=== PATIENT | female | born 2005 | race Caucasian/White ===

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

== ENCOUNTER 2024-12-05 10:31 | Emergency (ER) | payer BC, MEDICAID, SELFPAY ==
[2024-12-05 10:32] VITALS: BP 86/70; PULSE 106; RESP 18; TEMP 36.7; O2SAT 99
[2024-12-05 10:35] VITALS: BMI 25.7
--- NOTE | 2024-12-05 11:06 | US_ITS ---
PROCEDURE: KIDNEY AND BLADDER 12/05/2024 REASON FOR EXAM: R FLANK PAIN, TECHNIQUE: Bilateral renal ultrasound. COMPARISON: Comparison is made with prior CT scan of the abdomen and pelvis dated May 27, 2022. FINDINGS: Kidneys: Normal renal sizes, parenchymal thicknesses, and echotextures. [place]: Moderate right hydronephrosis. Cysts or Masses: No cysts or large solid renal masses. RIGHT Kidney Size: 11.6 cm x 5.3 cm x 6.1 cm Volume: 194 mL Cortical Thickness (if discernible): 1.2 cm (>6mm is normal) LEFT Kidney Size: 10.3 cm x 4.8 cm x 4.9 cm Volume: 126 mL Cortical Thickness (if discernible): 1 cm (>6mm is normal) The urinary bladder is visualized and is unremarkable. US/Kidney and Bladder IMPRESSION: Moderate degree of right hydronephrosis. Reading Location: [place] [id number]
--- NOTE | 2024-12-05 11:27 | EDS_ITS ---
HPI HPI - GI History of Present Illness Chief Complaint: Abd Pain Informant: patient and PCP Narrative Narrative: Healthy 19-year-old female 21 weeks and 3 days states she was awakened in the middle of the night 3 AM this past night with pain in her right flank and nausea no vomiting. No vaginal bleeding. No problems urinating. Never had this pain before. Seen in the office and examined, tender throughout the right abdomen without guarding or rebound and referred here to the ER for ultrasound possible kidney stone, possible appendicitis. Patient never had either [address] Gibson, urine was positive for blood and otherwise negative in the office they sent for culture. [facility] Medical History Anxiety Home Medications ?Medication ?Instructions ?Recorded ?Last Taken ?Type aspirin 81 mg capsule 81 mg PO DAILY 12/05/24 Unkn own History cyclobenzaprine 5 mg tablet 5 mg PO TID PRN PRN muscle spasms 12/05/24 Unknown History docusate sodium 100 mg capsule 100 mg PO BID 12/05/24 Unknown History famotidine 40 mg tablet 40 mg PO DAILY 12/05/24 Unkn own History metoclopramide HCl 10 mg tablet 10 mg PO TID PRN PRN n ausea and 12/05/24 Unknown History vomiting ondansetron 4 mg disintegrating 4 mg PO Q8H PRN PRN Na usea #10 tabs 12/05/24 Unknown Rx tablet oxycodone 5 mg tablet 5 mg PO Q6H PRN pain 3 days #12 12/05/24 Unknown Rx tabs Allergy/AdvReac Type Severity Reaction Status Date / Time acetaminophen (From Tylenol) AdvReac Abd Verified 05/27/22 11:03 cramps/diarrhea ibuprofen AdvReac Abd Verified 05/27/22 11:03 cramps/diarrhea Penicillins AdvReac Anaphylaxis Verified 05/27/22 11:02 Surgical History H/O colonoscopy H/O endoscopy Social History Smoking Status: Never smoker substance use type: does not use ROS ROS ED Constitutional Constitutional ED: Denies chills or fever(s) Eyes Eyes: Denies change in vision or diplopia ENT ENT ED: Denies rhinorrhea or sore throat Cardiovascular Cardiovascular: Denies chest pain or palpitations Respiratory/Chest Respiratory/Chest: Denies cough or dyspnea Gastrointestinal Gastrointestinal: Reports abdominal pain; Denies diarrhea, nausea or vomiting Genitourinary Genitourinary ED: Reports flank pain; Denies dysuria or hematuria Musculoskeletal Musculoskeletal: Reports back pain; Denies neck pain Integumentary Denies abscess or rash Neurologic Neurologic: Denies headache(s), paresthesias or weakness Psychiatric Psychiatric: Denies anxiety or suicidal thoughts EXAM Physical Exam Const Vital Signs: 12/05/24 10:32 12/05/24 12:32 12/05/24 14:00 Temperature 98.1 F Temperature Source Temporal Pulse Rate 106 H 106 H 100 Respiratory Rate 18 20 H 20 H Blood Pressure 86/70 L 115/62 Blood Pressure Mean 75 79 Pulse Ox 99 99 100 Oxygen Delivery Method Room Air Room Air Room Air Positive well nourished and well developed Constitutional Narrative: Appears uncomfortable but in no distress General Appearance ED: well developed and NAD HEENT Reports moist mucous membranes normocephalic and atraumatic Eyes PERRL and EOMs intact bilaterally Neck full ROM and supple Resp normal respiratory effort and clear to auscultation bilaterally Cardio regular rate, regular rhythm and no murmurs GI non-distended GI Narrative: Tender throughout the right side of the abdomen. No guarding or rebound tenderness. Negative Rovsing, negative obturator, positive psoas. Distended to about the umbilicus consistent with second trimester , this area is nontender. Auscultation: normoactive bowel sounds Palpation: soft Back/Spine Back/Spine Narrative: Mild right CVA tenderness not severe. Normal inspection. General Back: other FROM Extremity normal to inspection General Extremety ED: Negative for edema, pulses abnormal or tenderness General Extremity: Negative for edema or pulses abnormal Neuro oriented x3, CN's II-XII intact bilaterally and no sensory deficits noted Sensorium / Orientation: awake and alert Motor Exam: strength 5/5 throughout Skin no rashes or lesions noted and no wounds MDM MDM MDM Narrative Medical decision making narrative: Severe pain that wakes her up in the middle the night is more consistent with renal colic/urolithiasis/obstructive uropathy then it is appendicitis so starting with ultrasound and treating her with morphine, Zofrjil discussed with patient and family they are comfortable with that plan first along with some blood work. Blood work unremarkable, there is a mild leukocytosis which is normal during , there is not a strong leftward shift and her renal function is normal. Ultrasound of the kidneys and bladder were obtained, and basically consistent with right hydronephrosis. I reviewed the images and the report which I agree with. In this context, kidney stone causing an obstructive uropathy on the right ureter is most likely. Gravid uterus can cause this but it should be position dependent which her symptoms or not. She was given morphine after we discussed pros and cons of medications, and this did help. She states she is in discomfort but she is tolerating and she is very sensitive to medications and concerned about that at home and pain control. She does not react well to acetaminophen or tramadol. She is never tried oxycodone something to give her prescription for some, and she knows that she can break these into halves or quarters to use as needed. We discussed the pros and cons of surgical management here, and the need for CT imaging if she desires to seek surgical management. I think expectant management is reasonable for now along with strainers at home, and symptom control. Discussed with patient, family, they all have a history of kidney stone and the patient 7-year-old brother had a kidney stone, making this much more likely here in this patient. At this time they are okay with holding off on scanning/imaging further, and expectant management with symptom control, advised to follow-up and given urology's information to make an appointment. Lab Data Attestation: I reviewed the patient's lab results. Labs: Laboratory Results - last 24 hr 12/05/24 11:49 WBC 12.1 H RBC 3.53 L Hgb 10.0 L Hct 29.7 L MCV 84.1 MCH 28.3 MCHC 33.7 RDW Std Deviation 41.8 RDW Coeff of [place]illy 13.8 Plt Count 241 MPV 10.4 Immature Gran % (Auto) 1.200 H Neut % (Auto) 75.5 H Lymph % (Auto) 14.4 L [place] % (Auto) 7.8 Eos % (Auto) 0.7 Baso % (Auto) 0.4 Absolute Neuts (auto) 9.2 H Absolute Lymphs (auto) 1.74 Nucleated RBC % 0 Sodium 135 Potassium 3.7 Chloride 107 Carbon Dioxide 17.9 L Anion Gap 11 BUN 9 Creatinine 0.36 L Estim Creat Clear Calc 234.28 Est GFR (MDRD) Non-Af 148 BUN/Creatinine Ratio 25.7 H Glucose 79 Calcium 8.7 Radiography Diagnostic Testing: Clinical Impression(s) from Imaging Studies Renal Ultrasound 12/05/24 11:06 IMPRESSION: Moderate degree of right hydronephrosis. Reading Location: [place] [id number] Discharge Plan Triage Chief Complaint: Abd Pain ED Provider: Jenaro Vigil Dx/Rx/DC Orders Clinical Impression: Acute unilateral obstructive uropathy, Ureteral colic, Second trimester Instructions: ED Urine Strainer, ED Kidney Stone with Pain Prescriptions: New oxycodone 5 mg tablet 5 mg PO Q6H PRN (Reason: pain) 3 Days Qty: 12 0RF ondansetron 4 mg tablet,disintegrating 4 mg PO Q8H PRN PRN (Reason: Nausea) Qty: 10 0RF No Action aspirin 81 mg capsule 81 mg PO DAILY famotidine 40 mg tablet 40 mg PO DAILY cyclobenzaprine 5 mg tablet 5 mg PO TID PRN PRN (Reason: muscle spasms) docusate sodium 100 mg capsule 100 mg PO BID metoclopramide HCl 10 mg tablet 10 mg PO TID PRN PRN (Reason: nausea and vomiting) Primary Care Provider: Ezekiel Herman Referrals: Manasa Cooley MD [Med Staff - Active Staff] - 1 Week if not improving Print Language: Welsh Disposition Disposition: Home, Self Care
[2024-12-05 12:02] LABS: Absolute Lymphocyte Count 1.74 X10^3/uL (0.83-4.51); Absolute Neutrophil Count 9.2 X10^3/uL (2.0-7.7); Basophil# 0.05 X10^3/uL; Basophil% 0.4 % (0-1); Eosinophil# 0.09 X10^3/uL; Eosinophils% 0.7 % (0-5); Hematocrit 29.7 % (37-47); Lymphocyte # 1.74 X10^3/ul (0.83-4.51); Lymphocyte % 14.4 % (19-41); Mean Corp Hgb Conc 33.7 g/dL (32-36); Mean Corpuscular Hgb 28.3 pg (27.0-32.0); Mean Corpuscular Volume 84.1 fL (81-99); Mean Platelet Vol. 10.4 fl (6.2-12.0); Monocyte# 0.94 X10^3/uL; Monocyte% 7.8 % (0-10); NRBC Flagged by Analyzer 0 % (0-5); Neutrophil # 9.16 X10^3/uL (2.7-7.7); Neutrophil % 75.5 % (47-70); Platelet Count 241 K/mm3 (150-450); RBC Distribution Width CV 13.8 % (11.6-14.6); RBC Distribution Width SD 41.8 fl (35.1-43.9); Red Blood Count 3.53 M/mm3 (4.2-5.4); White Blood Count 12.1 K/mm3 (4.4-11.0)
[2024-12-05 12:32] VITALS: BP 115/62; PULSE 106; RESP 20; O2SAT 99
[2024-12-05 12:38] LABS: Anion Gap 11 (5-15); BUN 9 mg/dL (4-19); BUN/Creat Ratio 25.7 RATIO (10-20); Calcium,Total 8.7 mg/dL (7.6-11.0); Carbon Dioxide 17.9 mmol/L (21.0-32.0); Chloride 107 mmol/L (98-108); Creatinine, Serum 0.36 mg/dL (0.70-1.20); EST Glomerular Filtration Rate 148 (>60); Estimated Creatinine Clearance 234.28 ml/min (50-250); Glucose 79 mg/dL (70-99); Potassium 3.7 mmol/L (3.3-5.1); Sodium Level 135 mmol/L (133-145)
[2024-12-05 14:00] VITALS: PULSE 100; RESP 20; O2SAT 100
[2024-12-05 15:29] VITALS: BP 115/62; PULSE 105; RESP 15; O2SAT 97
== END 2024-12-05 15:32 | disposition home or self-care (01) ==
PROVIDERS: Emergency Provider Emergency Medicine; PCP Family Medicine; Visit Provider Emergency Medicine
DX: O99.891 Other specified diseases and conditions complicating pregnancy (principal); R10.9 Unspecified abdominal pain; N13.2 Hydronephrosis with renal and ureteral calculous obstruction; N36.8 Other specified disorders of urethra; Z3A.12 12 weeks gestation of pregnancy
CPT/HCPCS: 76770; 80048; 85025; 99282; A4216

== ENCOUNTER 2025-03-29 09:24 | Inpatient (IN) | payer BC, OTHER, MEDICAID, SELFPAY ==
[2025-03-29] VITALS (45 sets, daily range): BP systolic 123–194; BP diastolic 62–102; PULSE 65–133; RESP 14–22; TEMP 36.4–37.3; O2SAT 97–100; BMI 37.0
--- OUTSIDE RECORDS SUMMARY | 2025-03-29 05:53 | XMS RPT_ITS | CCD ---
Author Organization [facility] CliniSymi Care Team Providers Care Mandarin Chinese Teacher Name Role Phone Unavailable Primary Care Provider UnavailFernando Hodge Primary Care Provider [phone] Fernando Turcios Primary Care Provider [phone] Fernando Turcios Primary Care Provider [phone] Fernando Turcios Primary Care Provider [phone] Shannan Villarreal MD Primary Care Provider [phone] Shannan Villarreal MD Primary Care Provider [phone] CLAUS TAYLOR Referring Unavailable SHANNAN VILLARREAL Primary Care Unavailable Kaylyn CLOTH COLORS EXAMINER.BOOKING SUPERVISOR, Chrystal Unavailable [phone] VERA HATCH Referring Unavailable SHANNAN VILLARREAL Primary Care Unavailable SHIRA IZQUIERDO Referring Unavailable SHANNAN VILLARREAL Primary Care Unavailable SHIRA IZQUIERDO Referring Unavailable SHANNAN VILLARREAL Primary Care Unavailable SHANNAN VILLARREAL Primary Care Unavailable MARIA EPPS Referring Unavail able SHANNAN VILLARREAL Primary Care Unavailable SHANNAN VILLARREAL Primary Care Unavailable YESSY DELEON Attending Unavailable VERA HATCH Referring Unavailable SHANNAN VILLARREAL Primary Care Unavailable Dr. Ezekiel Villarreal MD Primary Care Provider Dr. Jenaro Vigil MD Emergency Provider KOURTNEY RODRIGUEZ Admitting Unavailable KOURTNEY RODRIGUEZ Attending Unavailable SHANNAN VILLARREAL Primary Care Unavailable RITIKA STEWART Admitting UnavailRITIKA Carter Attending Unavaillorelei e SHANNAN VILLARREAL Primary Care Unavailable Jenaro Vigil Attending Unavailable Ezekiel Villarreal Primary Care Unavailable KONTAK, SHANNAN R Primary Care Unavailable VERA HATCH Attending Unavailable DIONNETAK, SHANNAN R Primary Care Unavailable VERA HATCH Referring Unavailable KONTAK, SHANNAN R Primary Care Unavailable SELF Referring Unavailable KONTAK, SHANNAN R Primary Care Unavailable KONTAK, SHANNAN R Primary Care Unavailable TORCHIA, BECKY Referring Unavailable KONTAK, SHANNAN R Primary Care Unavailable VERA HATCH Referring Unavailable KONTAK, SHANNAN R Primary Care Unavailable VERA HATCH Referring Unavailable VERA HATCH Attending Unavailable KONTAK, SHANNAN R Primary Care Unavailable [facility] DIAMOND Attending Unavailable KONTAK, SHANNAN R Primary Care Unavailable HAURY, SHIRA Referring Unavailable KONTAK, SHANNAN R Primary Care Unavailable KONTAK, SHANNAN R Primary Care Unavailable VERA HATCH Attending Unavailable DIONNETAK, SHANNAN R Primary Care Unavailable MARIA EPPS Attending Unavail able KONTARodney, SHANNAN R Primary Care Unavailable VERA HATCH Attending Unavailable KONTAK, SHANNAN R Primary Care Unavailable HAURY, SHIRA Referring Unavailable KONTAK, SHANNAN R Primary Care Unavailable HAURY, SHIRA Attending Unavailable KONTAK, SHANNAN R Primary Care Unavailable SWATI SALGUERO Attending Unavailable DIONNETAK, SHANNAN R Primary Care Unavailable KONTAK, SHANNAN R Primary Care Unavailable HAURY, SHIRA Referring Unavailable KONTAK, SHANNAN R Primary Care Unavailable ASHWINICHIA, BECKY Referring Unavailable KONTAK, SHANNAN R Primary Care Unavailable VERA HATCH Attending Unavailable KONTAK, SHANNAN R Primary Care Unavailable HAURY, SHIRA Referring Unavailable EDUIN DOMINGUEZ Attending Unavailable CHERELLE, SHANNAN R Primary Care Unavailable SWATI GAUTHIER Attending Unavailable KONTAK, SHANNAN R Primary Care Unavailable [facility] DIAMOND Attending Unavailable DIONNETARodney, SHANNAN R Primary Care Unavailable MARIA EPPS Attending Unavail able KONTARodney, SHANNAN R Primary Care Unavailable TORCHIA, BECKY Referring Unavailable KONTAK, SHANNAN R Primary Care Unavailable KONTAK, SHANNAN R Primary Care Unavailable HAURY, SHIRA Attending Unavailable DIONNETAK, SHANNAN R Primary Care Unavailable TORCHIA, BECKY Referring Unavailable KONTAK, SHANNAN R Primary Care Unavailable HAURY, SHIRA Referring Unavailable KONTAK, SHANNAN R Primary Care Unavailable VERA HATCH Referring Unavailable TYRA HATCHICA Attending Unavailable SHANNAN VILLARREAL Primary Care Unavailable HOLDENVERA Referring Unavailable SHANNAN VILLARREAL Primary Care Unavailable SELF Referring Unavailable SHANNAN VILLARREAL R Primary Care Unavailable VERA HATCH Attending Unavailable SHANNAN VILLARREAL R Primary Care Unavailable HATCHVERA Referring Unavailable SHANNAN VILLARREAL Primary Care Unavailable HOLDENVERA Referring Unavailable SHANNAN VILLARREAL Primary Care Unavailable HOLDENVERA Referring Unavailable MARIA EPPS Attending Unavail able Allergies Allergy Classification Reported Allergen(s) Allergy Type Date of Onset Reaction(s) Facility Acetaminophen (2 sources) Acetaminophen Drug Allergy 05-27-20 22 Diarrhea [facility] Antihistamines (2 sources) hydrOXYzine Drug Allergy 06-30-20 23 Other: See Comments [facility] Chlorhexidine (2 sources) Chlorhexidine Drug Allergy 06-29-20 23 Rash [facility] Work Phone: [employer] (2 sources) [employer] [facility] Substance Allergy 07-05-20 23 Intolerance [facility] Lactose (2 sources) Lactose Drug Allergy 11-02-19 22 Diarrhea [facility] Lincosamides (antibiotic) (2 sources) Clindamycin Drug Allergy 06-29-20 23 Anaphylaxis [facility] Macrolides (antibiotic) (2 sources) Azithromycin Drug Allergy 01-27-20 24 Diarrhea [facility] NSAIDs (2 sources) Ibuprofen Drug Allergy 05-27-20 22 Diarrhea [facility] Opioid Agonists (2 sources) traMADol Drug Allergy 09-11-19 Other: See Comments [facility] Peanuts and Peanut Containing Products (2 sources) Peanut butter Food Allergy 04-29-20 23 Diarrhea, GI Upset [facility] Penicillins (antibiotic) (2 sources) Penicillins Drug Allergy 01-09-20 19 Other: See Comments [facility] Quinolones (antibiotic) (2 sources) Ciprofloxacin Drug Allergy 06-29-20 23 Other: See Comments [facility] (10 sources) Penicillins; Translations: [PENICILLINS] Propensity to adverse reactions to drug 03-21-20 16 Other: See Comments [facility] [place], [place] (20 sources) Lactose; Translations: [LACTOSE] Drug Allergy 11-02-19 22 Diarrhea [facility] (3 sources) Penicillins Drug Allergy 01-09-20 19 Anaphylaxis [facility] (20 sources) Penicillins Drug Allergy 01-09-20 19 Anaphylaxis, Other: See Comments [facility] (20 sources) Acetaminophen; Translations: [ACETAMINOPHEN] Drug Allergy 05-27-20 Diarrhea [facility] (20 sources) Ibuprofen; Translations: [IBUPROFEN] Drug Allergy 05-27-20 Diarrhea [facility] (2 sources) Penicillins Propensity to adverse reactions 05-27-20 Anaphylaxis [facility] (20 sources) Peanut butter; Translations: [PEANUT BUTTER FLAVOR] Propensity to adverse reactions to drug 04-29-20 Diarrhea, GI Upset [facility] (20 sources) Chlorhexidine; Translations: [CHLORHEXIDINE] Drug Allergy 06-29-20 Rash [facility] Work Phone: (20 sources) Ciprofloxacin; Translations: [CIPROFLOXACIN] Drug Allergy 06-29-20 Other: See Comments [facility] (20 sources) Clindamycin; Translations: [CLINDAMYCIN] Drug Allergy 06-29-20 Anaphylaxis [facility] (20 sources) [employer]; Translations: [RED DYE] Drug Intolerance 07-05-20 Intolerance [facility] (20 sources) hydrOXYzine; Translations: [HYDROXYZINE] Drug Allergy 06-30-20 Other: See Comments [facility] (20 sources) traMADol; Translations: [TRAMADOL] Drug Allergy 09-11-19 Other: See Comments [facility] (20 sources) Azithromycin; Translations: [AZITHROMYCIN] Drug Allergy 01-27-20 Diarrhea [facility] (20 sources) Penicillins Drug Allergy 01-09-20 Other: See Comments [facility] (1 source) Acetaminophen Drug Allergy 05-27-20 [facility] (1 source) Ibuprofen Drug Allergy 05-27-20 [facility] (1 source) Penicillins Drug allergy (disorder) 05-27-20 [facility] Medications Current Medications Medication Drug Class(es) Dates Sig (Normalized) Sig (Original) aspirin 81 mg oral tablet (20 sources) Platelet Aggregation Inhibitor, Nonsteroidal Anti-inflammatory Drug Start: 12-05-2024 take 1 capsule by mouth once daily Aspirin 81 mg capsule Active 81 mg PO DAILY December 05, 2024 12:00am Start: 09-16-2024 take 1 tablet by kenyatta th once daily aspirin, enteric coated (ECOTRIN LOW STRENGTH) 81 mg EC tablet Take 1 tablet by mouth once daily. 90 tablet 3 09/16/2024 Active atomoxetine 10 mg oral capsule (1 source) Norepinephrine Reuptake Inhibitor take 1 capsule by mouth once daily azithromycin 250 mg oral tablet (2 sources) Macrolide Antimicrobial Start: End: take 2 tablets by mouth once daily, then take 1 tablet by mouth once daily azithromycin (ZITHROMAX) 250 mg tablet Take 2 tablets by mouth once daily for 1 day, THEN 1 tablet once daily for 4 days. 6 tablet 0 01/16/2024 01/21/2024 Active benoxinate hydrochloride 4 mg/ml / fluorescein sodium 3 mg/ml ophthalmic solution (2 sources) Diagnostic Dye Start: End: fluorescein-benoxinat e 0.3-0.4 % 1 Drop (FLURESS) cyclobenzaprine hydrochloride 5 mg oral tablet (20 sources) Muscle Relaxant Start: take 1 tablet by mouth every eight hours as needed cyclobenzaprine (FLEXERIL) 5 mg tablet Take 1 tablet by mouth three times a day as needed. 12 tablet 11/21/2024 Active diphenhydrAMINE hydrochloride 25 mg oral capsule (20 sources) Histamine-1 Receptor Antagonist Start: End: take 1 capsule by mouth every twenty-four hours as needed diphenhydrAMINE (BENADRYL) 25 mg capsule Take 25 mg by mouth at bedtime as needed for cold/allergy symptoms. 11/12/2023 10/05/2024 Discontinued (Course of therapy completed) docusate sodium 100 mg oral capsule (20 sources) Start: take 1 capsule by mouth twice daily docusate sodium (COLACE) 100 mg capsule Take 1 capsule by mouth two times a day. 30 capsule 3 09/16/2024 Active fexofenadine hydrochloride 180 mg oral tablet (20 sources) Histamine-1 Receptor Antagonist Start: End: take 1 tablet by mouth four times daily fexofenadine (MELISA) 180 mg tablet Take 1 tablet by mouth four times daily. 100 tablet 2 01/15/2024 10/05/2024 Discontinued (Course of therapy completed) Start: 09-24-2023 End: 07-04-2024 take 1 tablet by mouth once daily fexofenadine (MELISA ALLERGY) 180 mg tablet Take 1 tablet by mouth once daily. 30 tablet 2 09/24/2023 07/04/2024 Discontinued Comment on above: Take 1 tablet by kenyatta th once daily. fluconazole 150 mg oral tablet (1 source) Azole Antifungal Start: End: take 1 tablet by mouth once fluconazole (DIFLUCAN) 150 mg tablet Take 1 tablet by mouth one time only for 1 dose. 1 tablet 07/31/2024 07/31/2024 Active iv contrast (will be provided with radiology test) (5 sources) Start: End: inject 1 dose intravenously once iv contrast (will be provided with radiology test) Indications: Chronic migraine w/o aura w/o status migrainosus, not intractable , Positional headache MRI Brain Inject, intravenously, once for 1 dose.No IV access, insert saline lock prior to beginning of sedation, infusion, injection of imaging exam.Discontinue saline lock post exam. If Pt. has a central line or IVAD, may access for administration according to line specific nursing protocol.Once exam is complete flush line and de-access according to line specific nursing protocol in the MR contrast administration guidelines link 1 Each 0 01/15/2024 01/16/2024 Active Start: 01-15-2024 End: 01-16-2024 iv contrast (will be provide d with radiology test) Indications: Chronic migraine w/o aura w/o status migrainosus, not intractable , Positional headache MRV Brain Inject, intravenously, once for 1 dose. No IV access, insert saline lock prior to the beginning of sedation, infusion, injection of imaging exam. Discontinue saline lock post exam. If Pt. has a central line or IVAD, may access for administration according to line specific nursing protocol. Once exam is complete flush line and de-access according to line specific nursing protocol in the MR contrast administration guidelines link. 1 Each 0 01/15/2024 01/16/2024 Active Start: 12-24-2023 End: 12-25-2023 iv contrast (will be provide d with radiology test) Indications: Abdominal bloating , Elevated fecal calprotectin , Generalized abdominal pain , Nausea MRI Enterography Inject, intravenously, once for 1 dose. No IV access, insert saline lock prior to the beginning of sedation, infusion, injection of imaging exam. Discontinue saline lock post exam. If Pt. has a central line or IVAD, may access for administration according to line specific nursing protocol. Once exam is complete flush line and de-access according to line specific nursing protocol in the MR contrast administration guidelines link. 1 Each 0 12/24/2023 12/25/2023 Comment on above: MRI Enterography Inj ect, intravenously, once for 1 dose. No IV access, insert saline lock prior to the beginning of sedation, infusion, injection of imaging exam. Discontinue saline lock post exam. If Pt. has a central line or IVAD, may access for administration according to line specific nursing protocol. Once exam is complete flush line and de-access according to line specific nursing protocol in the MR contrast administration guidelines link. metoclopramide 10 mg oral tablet (7 sources) Dopamine-2 Receptor Antagonist Start: 025 take 1 tablet by mouth three times daily as needed for nausea and vomiting Metoclopramide Hcl 10 mg tablet Active 10 mg PO 3 TIMES DAILY NEEDED as needed for nausea and vomiting December 05, 2024 12:00am Start: 09-16-2024 End: 10-16-2024 take 1 tablet by mouth every eight hours as needed metoclopramide HCl (REGLAN) 10 mg tablet Take 1 tablet by mouth three times a day as needed. 90 tablet 09/16/2024 10/16/2024 Active mupirocin 0.02 mg/mg topical ointment (1 source) RNA Synthetase Inhibitor Antibacterial Start: 07-04-2024 End: 07-14-2024 mupirocin (BACTROBAN) 2 % ointment Indications: Noninfected skin tear of leg, right, initial encounter Apply to affected area three times a day for 10 days. 30 g 07/04/2024 07/14/2024 Active nitrofurantoin, macrocrystals 25 mg / nitrofurantoin, monohydrate 75 mg oral capsule (3 sources) Nitrofuran Antibacterial Start: 07-29-2024 End: 08-03-2024 take 1 capsule by mouth twice daily nitrofurantoin monohydrate and macrocrystal (MACROBID) 100 mg capsule Indications: Acute cystitis without hematuria Take 1 capsule by mouth two times a day for 5 days. 10 capsule 07/29/2024 08/03/2024 Active omeprazole 20 mg delayed release oral capsule (20 sources) Proton Pump Inhibitor Start: 02-08-2025 take 1 capsule by mouth once daily omeprazole (PRILOSEC) 20 mg capsule Indications: Heartburn during in third trimester (HCC) Take 1 capsule by mouth once daily. 60 capsule 02/08/2025 Active Start: 03-28-2024 End: 09-16-2024 take 1 capsule by mouth once daily omeprazole (PRILOSEC) 40 mg capsule Take 1 capsule by mouth once daily. 30 capsule 2 03/28/2024 09/16/2024 Discontinued (Course of therapy completed) ondansetron 4 mg disintegrating oral tablet (12 sources) Serotonin-3 Receptor Antagonist Start: 12-05-2024 take 1 tablet by mouth every eight hours as needed for nausea Ondansetron 4 mg tablet,disintegrating Active 4 mg PO EVERY 8 HOURS NEEDED as needed for Nausea December 05, 2024 12:00am Start: 05-27-2022 End: 12-05-2024 take 1 tablet by mouth every six hours as needed for nausea and vomiting Ondansetron Hcl 4 mg tablet Discontinued 4 mg PO EVERY 6 HOURS as needed for nausea and vomiting May 27, 2022 12:00am December 05, 2024 11:19am Start: 11-03-2021 take 1 tablet by kenyatta th every eight hours as needed ondansetron orally disintegrating (ZOFRAN ODT) 4 mg disintegrating tablet Take 1 tablet by mouth every 8 hours as needed for nausea/vomiting. 20 tablet 0 11/03/2021 Active Comment on above: Take 1 tablet by kenyatta th every 8 hours as needed for nausea/vomiting. oxyCODONE hydrochloride 5 mg oral tablet (1 source) Opioid Agonist Start: 12-06-19 take 1 tablet by mouth every six hours as needed for pain Oxycodone 5 mg tablet Active 5 mg PO EVERY 6 HOURS as needed for pain 12 3 December 05, 2024 vit no.124/iron/folic ( VITAMIN ORAL) (20 sources) vit no.124/iron/folic ( VITAMIN ORAL) Take 2 Pieces by mouth once daily. Active rifAXIMin 550 mg oral tablet (2 sources) Rifamycin Antibacterial Start: 02-21-20 End: 03-06-20 take 1 tablet by mouth three times daily rifAXIMin (XIFAXAN) 550 mg tablet Indications: Irritable bowel syndrome with diarrhea , Small intestinal bacterial overgrowth Take 1 tablet by mouth three times a day for 14 days. 42 tablet 0 02/21/2024 03/06/2024 Active 72 hr scopolamine 0.0139 mg/hr transdermal system (2 sources) Anticholinergic Start: 07-07-20 End: 10-05-19 scopolamine (TRANSDERM-SCOP) patch 1.5 mg/72 hr (delivers 1 mg over 3 days) Apply 1 Patch as directed every 72 hours. 10 Patch 2 07/07/2023 10/05/2023 Active Comment on above: Apply 1 Patch as dir ected every 72 hours. tropicamide 10 mg/ml ophthalmic solution (2 sources) Anticholinergic Start: 01-22-20 End: 01-22-20 tropicamide 1 % 1 Drop (MYDRIACYL) Completed/Discontinued Medications Medication Drug Class(es) Dates Sig (Normalized) Sig (Original) acetylcholine 10% solution - [facility] (2 sources) Start: 03-14-2024 End: 03-14-2024 acetylcholine 10% solution - [facility] brompheniramine maleate 0.4 mg/ml / dextromethorphan hydrobromide 2 mg/ml / pseudoephedrine hydrochloride 6 mg/ml oral solution (20 sources) alpha-Adrenergic Agonist, Uncompetitive P-tmndby-J-aspartat e Receptor Antagonist, Sigma-1 Agonist Start: 01-07-2024 End: 09-26-2024 take 5 mL by mouth four times daily as needed Brompheniramine-Ps eudoeph-DM (BROMFED DM) 2-30-10 mg/5 mL syrup Indications: Viral URI with cough Take 5 mL by mouth four times a day as needed. 118 mL 01/07/2024 09/26/2024 Discontinued (Course of therapy completed) cholecalciferol 1.25 mg oral capsule (20 sources) Vitamin D Start: 09-24-2023 End: 09-26-2024 take 1 capsule by mouth every week cholecalciferol, Vitamin D3, (VITAMIN D3) 1,250 mcg (50,000 unit) cap capsule Take 1 capsule by mouth one time a week. 12 capsule 1 09/24/2023 09/26/2024 Discontinued (Course of therapy completed) Comment on above: Take 1 capsule by [facility] one time a week. drospirenone / Ethinyl Estradiol (4 sources) Progestin, Estrogen Start: 05-16-2022 take 1 tablet by mouth once daily Drospirenone-Ethin yl Estradiol (ARMANI, 28,) 3-0.03 mg per tablet Take 1 tablet by mouth once daily. 90 tablet 3 05/16/2022 Active Comment on above: Take 1 tablet by [facility] once daily. DULoxetine 20 mg delayed release oral capsule (20 sources) Serotonin and Norepinephrine Reuptake Inhibitor Start: 07-06-2023 End: 09-16-2024 take 1 capsule by mouth once daily DULoxetine (CYMBALTA) 20 mg capsule Take 1 capsule by mouth once daily. 90 capsule 07/06/2023 09/16/2024 Discontinued (Course of therapy completed) Comment on above: Take 1 capsule by [facility] once daily. enteric contrast (will be provided with radiology test) (1 source) Start: 12-24-2023 End: 12-25-2023 enteric contrast (will be provided with radiology test) Indications: Abdominal bloating , Elevated fecal calprotectin , Generalized abdominal pain , Nausea For MRI ENTEROGRAPHY WO/W Administer, As Directed One Time Only, via Oral, Rectal, both Oral and Rectal, Enteric Tube, Stoma or Indwelling Catheter, Enteric Contrast as designated per enteric contrast guidelines 1 Each 0 12/24/2023 12/25/2023 Comment on above: For MRI ENTEROGRAPHY WO/W Administer, As Directed One Time Only, via Oral, Rectal, both Oral and Rectal, Enteric Tube, Stoma or Indwelling Catheter, Enteric Contrast as designated per enteric contrast guidelines ergocalciferol 1.25 mg oral capsule (7 sources) Provitamin D2 Compound Start: 07-10-2023 End: 01-07-2024 take 1 capsule by mouth every week ergocalciferol 50,000 unit capsule (VITAMIN D2, DRISDOL) Take 1 capsule by mouth one time a week for 7 doses. 7 capsule 0 07/10/2023 01/07/2024 Discontinued (Other) Comment on above: Take 1 capsule by [facility] one time a week for 7 doses. Ethinyl Estradiol / Norethindrone (2 sources) Estrogen Start: 06-03-2023 End: 08-14-2023 take 1 tablet by mouth once daily, then take 0.05 tablet by mouth once Norethindrone Acet-Ethinyl Est (LOESTRIN 09/26, 21,) 1-20 mg-mcg per tablet Take 1 tablet by mouth once daily. 21 tablet 3 06/03/2023 08/14/2023 Discontinued Start: 06-03-2023 take 1 tablet by kenyatta once daily, then take 0.05 tablet by mouth once Norethindrone Acet-Ethinyl Est (LOESTRIN 09/26, 21,) 1-20 mg-mcg per tablet Take 1 tablet by mouth once daily. 21 tablet 3 06/03/2023 Active Comment on above: Take 1 tablet by kenyatta once daily. famotidine 20 mg oral tablet (20 sources) Histamine-2 Receptor Antagonist Start: End: take 1 tablet by mouth twice daily famotidine (PEPCID) 20 mg tablet Take 1 tablet by mouth two times a day. 90 tablet 1 01/29/2025 02/08/2025 Discontinued Start: 09-16-2024 End: 01-14-2025 take 1 tablet by mouth once daily famotidine (PEPCID) 40 mg tablet Take 1 tablet by mouth once daily. 30 tablet 3 09/16/2024 01/14/2025 Active fluocinolone acetonide 0.38847 mg/mg topical ointment (6 sources) Corticosteroid Start: 06-03-2023 End: 12-27-2023 fluocinolone (SYNALAR) 0.025 % ointment Apply to affected area as directed. APPLY TO AFFECTED AREA THREE TIMES DAILY FOR 2 WEEKS THEN TWICE A DAY FOR TWO WEEKS THEN ONCE A DAY FOR A MONTH THEN PRN 60 g 0 06/03/2023 12/27/2023 Discontinued Comment on above: Apply to affected ar ea as directed. APPLY TO AFFECTED AREA THREE TIMES DAILY FOR 2 WEEKS THEN TWICE A DAY FOR TWO WEEKS THEN ONCE A DAY FOR A MONTH THEN PRN fluticasone propionate 0.05 mg/actuat metered dose nasal spray (20 sources) Corticosteroid Start: 01-07-2024 End: 09-26-2024 take 1 spray(s) nasal route once daily fluticasone (FLONASE ALLERGY RELIEF) 50 mcg/actuation nasal spray Indications: Viral URI with cough Use 1 [place] in each nostril once daily. 9.9 mL 01/07/2024 09/26/2024 Discontinued (Course of therapy completed) folic acid 1 mg oral tablet (2 sources) Start: 09-16-2024 End: 10-03-2024 take 1 tablet by mouth once daily folic acid 1 mg tablet Take 1 tablet by mouth once daily. 30 tablet 2 09/16/2024 10/03/2024 Discontinued (Discontinued by Patient) gabapentin 300 mg oral capsule (20 sources) Anti-epileptic Agent Start: 01-15-2024 End: 09-26-2024 gabapentin (NEURONTIN) 300 mg capsule Indications: Chronic migraine w/o aura w/o status migrainosus, not intractable Take 1 capsule by mouth as directed for 60 days. 1 capsule 1 01/15/2024 09/26/2024 Discontinued (Course of therapy completed) glucagon (rdna) 1 mg injection (18 sources) Antihypoglycemic Agent Start: 12-24-2023 End: 07-04-2024 inject 1 mg intravenously once glucagon (GLUCAGEN) 1 mg/mL injection Indications: Abdominal bloating , Elevated fecal calprotectin , Generalized abdominal pain , Nausea Inject 1 mg intravenously one time only for 1 dose. For MRI Enterography, Inject 1 mg intravenously, as directed. Slow push at the appropriate time during MRI Scan 1 Each 12/24/2023 07/04/2024 Discontinued Comment on above: Inject 1 mg intraven ously one time only for 1 dose. For MRI Enterography, Inject 1 mg intravenously, as directed. Slow push at the appropriate time during MRI Scan hyoscyamine sulfate 0.125 mg sublingual tablet (20 sources) Start: 09-24-2023 End: 09-26-2024 take 0.125 mg under the tongue every four hours as needed hyoscyamine sublingual (LEVSIN/SL) 0.125 mg Dissolve 1 tablet under the tongue every 4 hours as needed (abdominlal pain). 120 tablet 2 09/24/2023 09/26/2024 Discontinued (Course of therapy completed) Start: 12-30-2021 End: 12-05-2024 take 1 tablet by mouth four times daily as needed Hyoscyamine Sulfate 0.125 mg Tablet, Sublingual Discontinued 0.125 mg PO 4 TIMES DAILY NEEDED as needed for Cramps December 30, 2021 12:00am December 05, 2024 11:19am Comment on above: Dissolve 1 tablet un [place] the tongue every 4 hours as needed (abdominlal pain). 10 ml iron sucrose 20 mg/ml injection (1 source) Parenteral Iron Replacement Start: 02-06-2025 End: 02-06-2025 200 mg, INTRAVENOUS, ONCE, 1 dose, On Thu02/06/25 at 1330, May administer up to 200 mg via IV push over 5-10 minutes. iron sucrose 200 mg in NaCl 0.9% 100 mL (VENOFER) (3 sources) Start: 02-16-2025 End: 02-16-2025 200 mg, INTRAVENOUS, at 400 mL/hr, Administer over 15 Minutes, ONCE, 1 dose, On Francesca 02/16/25 at 1030 Start: 02-13-2025 End: 02-13-2025 200 mg, INTRAVENOUS, at 400 mL/hr, Administer over 15 Minutes, ONCE, 1 dose, On Thu02/13/25 at 1000 Start: 02-08-2025 End: 02-08-2025 200 mg, INTRAVENOUS, at 400 mL/hr, Administer over 15 Minutes, ONCE, 1 dose, On Thu02/08/25 at 1030 L. acidophilus-L. rhamnosus (FLORAJEN WOMEN) 15 billion cell cap (7 sources) Start: 02-19-2022 take 1 capsule by mouth once daily L. acidophilus-L. rhamnosus (FLORAJEN WOMEN) 15 billion cell cap Indications: Vaginal discharge Take 1 capsule by mouth once daily. 30 capsule 2 02/19/2022 Active Comment on above: Take 1 capsule by [facility] once daily. magnesium, aluminum hydroxide (MYLANTA ORAL) (1 source) End: 02-08-2025 magnesium, aluminum hydroxide (MYLANTA ORAL) Take by mouth once daily. Pt reported [facility] advised d/c Pepcid take Mylanta x2 02/08/2025 Discontinued pantoprazole 40 mg delayed release oral tablet (14 sources) Proton Pump Inhibitor Start: 07-06-2023 End: 12-24-2023 take 1 tablet by mouth twice daily before mealtime pantoprazole DR (PROTONIX) 40 mg tablet Take 1 tablet by mouth two times a day before meals. 60 tablet 2 07/06/2023 12/24/2023 Discontinued Start: 11-04-2021 take 1 tablet by kenyatta th once daily, then take 6 tablets by mouth in the morning pantoprazole DR (PROTONIX) 20 mg tablet Take 1 tablet by mouth DAILY (6 AM). 30 tablet 0 11/04/2021 Active Comment on above: Take 1 tablet by kenyatta th DAILY (6 AM). Take 1 tablet by kenyatta th two times a day before meals. peppermint oil (IBGARD) 90 mg CECX (20 sources) Start: 11-01-2021 End: 09-26-2024 take 1 capsule by mouth once daily as needed peppermint oil (IBGARD) 90 mg CECX Take 1 capsule by mouth once daily as needed (INTESTINAL UPSET). 48 capsule 11/01/2021 09/26/2024 Discontinued (Course of therapy completed) Start: 11-01-2021 take 1 capsule by mo uth once daily as needed peppermint oil (IBGARD) 90 mg CECX Take 1 capsule by mouth once daily as needed (INTESTINAL UPSET). 48 capsule 11/01/2021 Active Start: 11-01-2021 take 1 capsule by mo uth once daily as needed peppermint oil (IBGARD) 90 mg CECX Take 1 capsule by mouth once daily as needed (INTESTINAL UPSET). 48 capsule 0 11/01/2021 Active Comment on above: Take 1 capsule by mo uth once daily as needed (INTESTINAL UPSET). phenazopyridine hydrochloride 200 mg oral tablet (15 sources) Start: 07-27-20 End: 09-26-19 take 1 tablet by mouth every eight hours as needed phenazopyridine (PYRIDIUM) 200 mg tablet Indications: Dysuria Take 1 tablet by mouth every 8 hours as needed. 6 tablet 07/27/2024 09/26/2024 Discontinued (Course of therapy completed) sertraline 50 mg oral tablet (12 sources) Serotonin Reuptake Inhibitor Start: 12-31-19 End: 12-06-19 take 1 tablet by mouth once daily Sertraline (Zoloft) 50 mg Tablet Discontinued 50 mg PO DAILY December 30, 2021 12:00am December 05, 2024 11:19am take 1 tablet by mouth once jennie y sertraline (ZOLOFT) 25 mg tablet Take 25 mg by mouth once daily. 0 Active Comment on above: Take 25 mg by mouth once daily. Problems Active Problems Problem Classification Problem Date Documented Da te Episodic/Chronic Adjustment disorders (20 sources) Adjustment disorder; Translations: [Adjustment disorder, unspecified] Onset: 10-31-2021 11-03-2021 Chronic Allergic reactions (2 sources) Inflammatory dermatosis; Translations: [Dermatitis, unspecified] 01-15-2024 Episodic Anxiety disorders (20 sources) Anxiety; Translations: [Anxiety disorder, unspecified] Onset: 07-01-2023 07-04-2023 Chronic Calculus of urinary tract (1 source) Ureteric colic; Translations: [Unspecified renal colic] 12-05-2024 Episodic Cardiac dysrhythmias (1 source) Tachycardia, unspecified; Translations: [Tachycardia] Onset: 08-10-2024 Episodic Conditions associated with dizziness or vertigo (4 sources) Orthostatic hypotension; Translations: [Dizziness and giddiness] 01-15-2024 Episodic Deficiency and other anemia (1 source) Iron deficiency anemia, unspecified; Translations: [Maternal iron deficiency anemia complicating , third trimester (HCC)] Onset: 01-31-2025 Episodic Diabetes or abnormal glucose tolerance complicating ; childbirth; or the puerperium (1 source) and type 1 diabetes mellitus; Translations: [Pre-existing type 1 diabetes mellitus, in , unspecified trimester] 09-16-2024 Chronic Genitourinary symptoms and ill-defined conditions (3 sources) Dysuria; Translations: [Dysuria] 07-27-2024 Episodic Headache; including migraine (20 sources) Migraine without aura, not refractory ; Translations: [Chronic migraine without aura, not intractable, without status migrainosus] Onset: 01-22-2024 01-15-2024 Chronic Headache; including migraine (1 source) Headache; Translations: [Positional headache] 01-15-2024 Episodic Immunity disorders (1 source) Mast cell activation syndrome; 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, 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 Immunizations and screening for infectious disease (4 sources) Patient encounter status; Translations: [Encounter for immunization] Onset: 01-24-2025 05-10-2024 Episodic Malaise and fatigue (2 sources) Malaise and fatigue; Translations: [Other malaise] Episodic Mood disorders (20 sources) Depressive disorder; Translations: [Depression] Onset: 07-01-2023 07-04-2023 Chronic Nonmalignant breast conditions (2 sources) Discharge from nipple; Translations: [Nipple discharge] Onset: 01-20-2025 01-20-2025 Episodic Nonspecific chest pain (18 sources) Chest pain; Translations: [Chest pain during ] Onset: 01-29-2025 01-29-2025 Episodic Open wounds of extremities (1 source) Tear of skin; Translations: [Laceration without foreign body, right lower leg, initial encounter] 07-04-2024 Episodic Other circulatory disease (1 source) Low blood pressure; Translations: [Hypotension, unspecified] Episodic Other complications of (20 sources) Anemia of ; Translations: [Anemia complicating , third trimester] Onset: 01-24-2025 01-24-2025 Chronic Other complications of (20 sources) Anemia in mother complicating , childbirth AND/OR puerperium; Translations: [Anemia complicating , third trimester] Onset: 01-31-2025 01-31-2025 Chronic Other complications of (2 sources) Anemia complicating , third trimester; Translations: [Anemia during in third trimester (HCC)] Onset: 01-24-2025 Chronic Other complications of (3 sources) with inconclusive viability, not applicable or unspecified; Translations: [ with inconclusive viability] Onset: 08-15-2024 08-10-2024 Episodic Other complications of (1 source) Vomiting of , unspecified; Translations: [Unspecified vomiting of , unspecified as to episode of care or not applicable] 08-26-2024 Episodic Other complications of (1 source) Uterine contractions problem; Translations: [Other specified related conditions, unspecified trimester] 10-28-2024 Episodic Other complications of (4 sources) Heartburn; Translations: [Other specified related conditions, second trimester] 11-01-2024 Episodic Other complications of (4 sources) Reduced movement; Translations: [Decreased movements, third trimester, not applicable or unspecified] 02-08-2025 Episodic Other complications of (9 sources) Excessive growth affecting management of mother; Translations: [Maternal care for excessive growth, unspecified trimester, not applicable or unspecified] Onset: 02-16-2025 02-16-2025 Episodic Other complications of (4 sources) Suspected macroscopic fetus; Translations: [Maternal care for excessive growth, third trimester, not applicable or unspecified] 02-20-2025 Episodic Other complications of (2 sources) Supervision of high risk , unspecified, third trimester; Translations: [Encounter for supervision of high risk in third trimester, antepartum (HCC)] Onset: 02-08-2025 Episodic Other complications of (1 source) Maternal care for excessive growth, third trimester, not applicable or unspecified; Translations: [ macrosomia during in third trimester, single or unspecified fetus (HCC)] Onset: 02-16-2025 Episodic Other complications of (1 source) Decreased movements, third trimester, not applicable or unspecified; Translations: [Decreased movements in third trimester, single or unspecified fetus (HCC)] Onset: 02-16-2025 Episodic Other complications of (1 source) Other specified related conditions, third trimester; Translations: [Heartburn during in third trimester (HCC)] Onset: 02-08-2025 Episodic Other complications of (1 source) Other specified related conditions, second trimester; Translations: [Heartburn during in second trimester (HCC)] Onset: 12-28-2024 Episodic Other connective tissue disease (1 source) Muscle weakness; Translations: [Muscle weakness (generalized)] Episodic Other connective tissue disease (1 source) Musculoskeletal pain; Translations: [Myalgia, other site] 03-14-2025 Episodic Other connective tissue disease (1 source) Myalgia, other site; Translations: [Musculoskeletal pain] Onset: 03-14-2025 Episodic Other female genital disorders (2 sources) Pain in female genitalia on intercourse; Translations: [Unspecified dyspareunia] 12-16-2023 Chronic Other female genital disorders (1 source) Unspecified dyspareunia; Translations: [Female dyspareunia] Onset: 12-16-2023 Chronic Other female genital disorders (5 sources) Vaginal discharge; Translations: [Other specified noninflammatory disorders of vagina] Episodic Other female genital disorders (1 source) Vaginal odor; Translations: [Other specified noninflammatory disorders of vagina] Episodic Other female genital disorders (2 sources) Pruritus of vagina; Translations: [Other specified noninflammatory disorders of vagina] Episodic Other female genital disorders (1 source) Pain in female genitalia; Translations: [Unspecified condition associated with female genital organs and menstrual cycle] 11-28-2024 Episodic Other female genital disorders (2 sources) Other specified noninflammatory disorders of vagina; Translations: [Vaginal itching] Onset: 02-08-2025 Episodic Other gastrointestinal disorders (1 source) Irritable bowel syndrome with diarrhea; Translations: [Irritable bowel syndrome with diarrhea] 02-21-2024 Chronic Other gastrointestinal disorders (20 sources) Irritable bowel syndrome; Translations: [Mixed irritable bowel syndrome] Onset: 09-16-2024 09-16-2024 Chronic Other gastrointestinal disorders (5 sources) Abdominal bloating; Translations: [Abdominal distension (gaseous)] 12-24-2023 Episodic Other gastrointestinal disorders (2 sources) Stool finding; Translations: [Other fecal abnormalities] 12-24-2023 Episodic Other gastrointestinal disorders (1 source) Abdominal distension (gaseous); Translations: [Abdominal bloating] Onset: 01-27-2024 Episodic Other gastrointestinal disorders (1 source) Other fecal abnormalities; Translations: [Elevated fecal calprotectin] Onset: 01-27-2024 Episodic Other gastrointestinal disorders (2 sources) Constipation; Translations: [Constipation, unspecified] 10-05-2024 Episodic Other gastrointestinal disorders (2 sources) Heartburn; Translations: [Heartburn during in third trimester (HCC)] Onset: 12-28-2024 Episodic Other nervous system disorders (3 sources) Skin sensation disturbance; Translations: [Unspecified disturbances of skin sensation] 01-15-2024 Episodic Other non-traumatic joint disorders (2 sources) Hip pain; Translations: [Pain in left hip] 03-20-2025 Episodic Other non-traumatic joint disorders (1 source) Pain in left hip; Translations: [Pain in left hip] Onset: 03-20-2025 Episodic Other nutritional; endocrine; and metabolic disorders (1 source) Loss of appetite; Translations: [Anorexia] Episodic Other nutritional; endocrine; and metabolic disorders (1 source) Craving for particular food; Translations: [Other symptoms and signs concerning food and fluid intake] Episodic Other and delivery including normal (20 sources) with uncertain dates; Translations: [Encounter for supervision of normal , unspecified, unspecified trimester] Onset: 08-16-2024 08-16-2024 Episodic Other screening for suspected conditions (not mental disorders or infectious disease) (10 sources) Increased testosterone level; Translations: [Other specified abnormal findings of blood chemistry] Onset: 10-03-2024 Episodic Other skin disorders (2 sources) Acne; Translations: [Other acne] Episodic Other skin disorders (2 sources) Acne vulgaris; Translations: [Acne vulgaris] 02-20-2025 Episodic Other skin disorders (1 source) Acne vulgaris; Translations: [Acne vulgaris] Onset: 02-20-2025 Episodic Other upper respiratory disease (1 source) Chronic rhinitis; Translations: [Chronic rhinitis] 01-16-2024 Chronic Other upper respiratory infections (3 sources) Sore throat symptom; Translations: [Acute pharyngitis, unspecified] 04-29-2023 Episodic Otitis media and related conditions (1 source) Acute left otitis media; Translations: [Otitis media, unspecified, left ear] 01-16-2024 Episodic Ovarian cyst (3 sources) Cyst of ovary; Translations: [Unspecified ovarian cyst, unspecified side] 01-07-2022 Episodic Poisoning by other medications and drugs (1 source) Adverse reaction to drug; Translations: [Medication side effect, initial encounter] Episodic Polyhydramnios and other problems of amniotic cavity (3 sources) Polyhydramnios; Translations: [Polyhydramnios, third trimester, not applicable or unspecified] Onset: 03-20-2025 03-20-2025 Episodic Residual codes; unclassified (1 source) Less than 8 weeks gestation of ; Translations: [Less than 8 weeks gestation of ] Onset: 08-10-2024 Episodic Residual codes; unclassified (4 sources) Gestation period, 12 weeks; Translations: [12 weeks gestation of ] 09-16-2024 Episodic Residual codes; unclassified (1 source) FH: Allergy; Translations: [Family history of other specified conditions] 09-16-2024 Episodic Residual codes; unclassified (2 sources) Gestation period, 16 weeks; Translations: [16 weeks gestation of ] 10-28-2024 Episodic Residual codes; unclassified (5 sources) Gestation period, 19 weeks; Translations: [19 weeks gestation of ] Onset: 11-21-2024 11-21-2024 Episodic Residual codes; unclassified (1 source) Gestation period, 20 weeks; Translations: [20 weeks gestation of ] 11-28-2024 Episodic Residual codes; unclassified (1 source) Gestation period, 21 weeks; Translations: [21 weeks gestation of ] 12-05-2024 Episodic Residual codes; unclassified (1 source) Gestation period, 28 weeks; Translations: [28 weeks gestation of ] 01-20-2025 Episodic Residual codes; unclassified (5 sources) Gestation period, 29 weeks; Translations: [29 weeks gestation of ] Onset: 01-29-2025 01-29-2025 Episodic Residual codes; unclassified (3 sources) Gestation period, 30 weeks; Translations: [30 weeks gestation of ] 02-08-2025 Episodic Residual codes; unclassified (2 sources) Gestation period, 32 weeks; Translations: [32 weeks gestation of ] 02-20-2025 Episodic Residual codes; unclassified (1 source) Gestation period, 34 weeks; Translations: [34 weeks gestation of ] 03-06-2025 Episodic Residual codes; unclassified (1 source) Gestation period, 35 weeks; Translations: [35 weeks gestation of ] 03-14-2025 Episodic Residual codes; unclassified (2 sources) Gestation period, 36 weeks; Translations: [36 weeks gestation of ] 03-20-2025 Episodic Residual codes; unclassified (1 source) 36 weeks gestation of ; Translations: [36 weeks gestation of (HCC)] Onset: 03-20-2025 Episodic Residual codes; unclassified (1 source) 35 weeks gestation of ; Translations: [35 weeks gestation of (HCC)] Onset: 03-14-2025 Episodic Residual codes; unclassified (1 source) 34 weeks gestation of ; Translations: [34 weeks gestation of (HCC)] Onset: 03-06-2025 Episodic Residual codes; unclassified (1 source) 32 weeks gestation of ; Translations: [32 weeks gestation of (HCC)] Onset: 02-20-2025 Episodic Residual codes; unclassified (1 source) 30 weeks gestation of ; Translations: [30 weeks gestation of (HCC)] Onset: 02-16-2025 Episodic Residual codes; unclassified (1 source) 28 weeks gestation of ; Translations: [28 weeks gestation of (HCC)] Onset: 01-20-2025 Episodic Residual codes; unclassified (1 source) 24 weeks gestation of ; Translations: [24 weeks gestation of (HCC)] Onset: 12-28-2024 Episodic Unclassified (20 sources) [facility] - [facility]ON Onset: 09-16-2024 09-16-2024 Unclassified (20 sources) Education - [place] Onset: 09-16-2024 09-16-2024 Unclassified (1 source) Other specified diseases and conditions complicating ; Translations: [Other specified diseases and conditions complicating ] Onset: 02-13-2025 Urinary tract infections (2 sources) Acute cystitis; Translations: [Acute cystitis without hematuria] 07-29-2024 Episodic Past or Other Problems Problem Classification Problem Date Documented Da te Episodic/Chronic Abdominal pain (20 sources) Abdominal pain; Translations: [Unspecified abdominal pain] Onset: 10-31-2021 Resolved: 03-14-2025 Episodic Blindness and vision defects (20 sources) Blurring of visual image; Translations: [Other visual disturbances] Onset: 01-22-2024 01-15-2024 Episodic Fluid and electrolyte disorders (20 sources) Dehydration; Translations: [Dehydration] Onset: 07-04-2023 Resolved: 08-12-2024 07-07-2023 Episodic Menstrual disorders (20 sources) Irregular periods; Translations: [Irregular menstruation, unspecified] Onset: 05-01-2022 Resolved: 01-20-2025 Chronic Nausea and vomiting (20 sources) Nausea; Translations: [Nausea] Onset: 10-31-2021 Resolved: 11-01-2024 06-29-2023 Episodic Noninfectious gastroenteritis (20 sources) Colitis; Translations: [Noninfective gastroenteritis and colitis, unspecified] Onset: 06-29-2023 Resolved: 08-12-2024 07-07-2023 Episodic Other complications of (20 sources) Abdominal pain in ; Translations: [Other specified related conditions, first trimester] Onset: 11-21-2024 08-26-2024 Episodic Other complications of (20 sources) High risk ; Translations: [Supervision of high risk , unspecified, second trimester] Onset: 09-16-2024 09-16-2024 Episodic Other complications of (1 source) Supervision of high risk , unspecified, second trimester; Translations: [Supervision of high risk in second trimester] Onset: 10-03-2024 Episodic Other gastrointestinal disorders (20 sources) Diarrhea; Translations: [Diarrhea, unspecified] Onset: 10-31-2021 Resolved: 03-14-2025 06-29-2023 Episodic Other gastrointestinal disorders (20 sources) Small bowel bacterial overgrowth syndrome; Translations: [Small intestinal bacterial overgrowth] Onset: 09-16-2024 02-21-2024 Episodic Other nutritional; endocrine; and metabolic disorders (20 sources) Ketosis; Translations: [Other specified metabolic disorders] Onset: 07-04-2023 Resolved: 08-12-2024 07-04-2023 Chronic Other nutritional; endocrine; and metabolic disorders (20 sources) Intolerance to lactose; Translations: [Lactose intolerance, unspecified] Onset: 09-16-2024 Resolved: 01-20-2025 09-16-2024 Chronic Residual codes; unclassified (20 sources) Gestation period, 24 weeks; Translations: [24 weeks gestation of ] Onset: 11-21-2024 Resolved: 01-20-2025 12-28-2024 Episodic Residual codes; unclassified (1 source) 12 weeks gestation of ; Translations: [12 weeks gestation of ] Onset: 10-03-2024 Episodic Results Test Name Value Interpretation Reference Range Facil ity BACTERIAL VAGINOSIS NAATon 0 03-20-2025 Interpretation and review of laboratory results Normal [facility] Lactobacillus crispatus+gasseri+jense jona + Gardnerella vaginalis + Atopobium vaginae rRNA FAVIOLA+probe Ql (Vag fld) Not detected Not detected [facility] Lactobacillus crispatus+gasseri+jense jona + Gardnerella vaginalis + Atopobium vaginae rRNA FAVIOLA+probe Ql (Vag fld) Not detected Normal Not detected [facility] Comment on above: Order Comment: Speci men Type: SWABOrdering Facility: [facility] Address: [address] [place] [address] Performed By: #### B VAMP, CVTV ####[facility] LABCLIA [id number] [place] [address] [place] KANG/TRICHOMONAS NAATon 0 03-20-2025 C. glabrata RNA FAVIOLA+probe Ql (Vag fld) Not detected Not detected [facility] Kang sp DNA FAVIOLA+probe Ql (Vag fld) Detected Abnormal Not detected [facility] Comment on above: The Kang species group target includes C. albicans, C. tropicalis, C. parapsilosis, and C. dubliniensis. Interpretation and review of laboratory results Abnormal [facility] T. vaginalis DNA FAVIOLA+probe Ql (Unsp spec) Not detected Not detected [facility] C. glabrata RNA FAVIOLA+probe Ql (Vag fld) Not detected Normal Not detected [facility] Comment on above: Order Comment: Speci men Type: SWABOrdering Facility: [facility] Address: [address] [place] [address] Performed By: #### B VAMP, CVTV ####[facility] LABCLIA [id number] [place] [address] [place] Kang sp DNA FAVIOLA+probe Ql (Vag fld) Detected Abnormal Not detected [facility] Comment on above: Order Comment: Speci men Type: SWABOrdering Facility: [facility] Address: [address] [place] [address] Result Comment: The Kang species group target includes C. albicans, C. tropicalis, C. parapsilosis, and C. dubliniensis. Performed By: #### B VAMP, CVTV ####[facility] LABCLIA [id number] [place] [id number] [place] [address] T. vaginalis DNA FAVIOLA+probe Ql (Unsp spec) Not detected Normal Not detected [facility] Comment on above: Order Comment: Speci men Type: SWABOrdering Facility: [facility] Address: [address] [place] [address] Performed By: #### B VAMP, CVTV ####[facility] LABCLIA [id number] [address] [place] Examination level ultrasound on 03-20-2025 [facility] Radiology Study observation (narrative) [facility] ROUTINE, GROUP B ST REPTOCOCCUS BY PCRon 03-20-2025 ROUTINE, GROUP B STREPTOCOCCUS BY PCR Not detected Normal [facility] Comment on above: Performed By: #### G BPCR ####[facility] LABCLIA [id number] [address] [place] CBC panel Auto (Bld)on 03-14 Erythrocyte distribution width (RBC) [Ratio] 19.0 % High 11.5-15.0 [facility] Comment on above: Order Comment: Speci men Type: BLOOD SPECIMENOrdering Facility: [facility] Address: [address] [place] [address] Performed By: #### 5 8410-2 ####[facility] [id number] [place] [address] [place] Hematocrit (Bld) [Volume fraction] 33.9 % Low 36.0-46.0 [facility] Comment on above: Order Comment: Speci men Type: BLOOD SPECIMENOrdering Facility: [facility] Address: [address] [place] [address] Performed By: #### 5 8410-2 ####[facility] [id number] [place] [address] [place] Hemoglobin (Bld) [Mass/Vol] 11.2 g/dL Low 11.5-15.5 [facility] Comment on above: Order Comment: Speci men Type: BLOOD SPECIMENOrdering Facility: [facility] Address: [address] [place] [address] Performed By: #### 5 8410-2 ####[facility] HERBERTHLeonNCNEGRITA [id number] [place] [address] [place] MCH (RBC) [Entitic mass] 25.9 pg Low 26.0-34.0 [facility] Comment on above: Order Comment: Speci men Type: BLOOD SPECIMENOrdering Facility: [facility] Address: [address] [place] [address] Performed By: #### 5 8410-2 ####[facility]ENTERNCJORD[facility] [id number] [address] [place] MCHC (RBC) [Mass/Vol] 33.0 g/dL Normal 30.5-36.0 [facility] Comment on above: Order Comment: Speci men Type: BLOOD SPECIMENOrdering Facility: [facility] Address: [address] [place] [address] Performed By: #### 5 8410-2 ####[facility] [id number] [address] [place] MCV (RBC) [Entitic vol] 78.3 fL Low 80.0-100.0 [facility] Comment on above: Order Comment: Speci men Type: BLOOD SPECIMENOrdering Facility: [facility] Address: [address] [place] [address] Performed By: #### 5 8410-2 ####[facility]ERNCLIA [id number] [place] [address] [place] Nucleated RBC (Bld) [#/Vol] 10*3/uL Normal <0.01 [facility] Comment on above: Order Comment: Speci men Type: BLOOD SPECIMENOrdering Facility: [facility] Address: [address] [place] [address] Performed By: #### 5 8410-2 ####[facility] DORANCANTHONYA [id number] [place] [address] [place] Platelet mean volume (Bld) [Entitic vol] 11.0 fL Normal 9.0-12.7 [facility] Comment on above: Order Comment: Speci men Type: BLOOD SPECIMENOrdering Facility: [facility] Address: [address] [place] [address] Performed By: #### 5 8410-2 ####[facility]ENTERSAJIA [id number] [place] [address] [place] Platelets (Bld) [#/Vol] 239 10*3/uL Normal 150-400 [facility] Comment on above: Order Comment: Speci men Type: BLOOD SPECIMENOrdering Facility: [facility] Address: [address] [place] [address] Performed By: #### 5 8410-2 ####[facility]CLIA [id number] [place] [address] [place] RBC (Bld) [#/Vol] 4.33 10*6/uL Normal 3.90-5.20 [facility] Comment on above: Order Comment: Speci men Type: BLOOD SPECIMENOrdering Facility: [facility] Address: [address] [place] [address] Performed By: #### 5 8410-2 ####[facility]ERNCLIA [id number] [place] [address] [place] WBC (Bld) [#/Vol] 10.66 10*3/uL Normal 3.70-11.00 [facility] Comment on above: Order Comment: Speci men Type: BLOOD SPECIMENOrdering Facility: [facility] Address: [address] [place] [address] Performed By: #### 5 8410-2 ####[facility] ANAIS BORRERO [id number] [address] [place] Pia 03-13-2025 CNPN Telephone (OBGYWM) RHONDA COHEN ([id number]) 1 F Date Time Provider Department 03/13/25 JASMIN ARCHER During your visit today, we recorded the following information about you: Jasmin Soni RN 03/13/2025 8:42 AM Signed 35w3d Patient called with c/o increased edema in her feet for at least a week. The swelling makes her feet feel itchy. Also, c/o left sided rib pain that will improve with position changes. Will hurt if she laughs, coughs, or sneezes. Feels bruised. Patient concerned for Pre E since there is a family hx. Asking if she should be seen. Discussed continuing to drink plenty of water, elevate legs when able, compression stockings and limiting sodium in diet. Denies RUQ pain, dizziness, ANTHONY, or vision changes. States she will occasionally have blurred vision, but that could related to the fact that she wears glasses, she said. Next OB visit 03/20. UMAIR Perez Jennifer, MD 03/13/2025 10:06 AM Signed If she can some how take her BP at home and its normal than she can keep her scheduled appointment Negrita Colby RN 03/13/2025 3:19 PM Addendum Pt stated she has no BP monitor at home. Discussed with Dr. Archer that Pt states pain is now located in Right and left upper rib area/centralized upper abdomen. Pt states changing positions does not help. Pt describes as Achy. Pt denies vaginal bleeding. When asking Pt if baby has been active-she states Not as active as she normally is. Explained to Pt that we want at least 6 to 10 movements in 1 hr or less and Pt states she is not sure. Informed Pt that d/t noted complaints with prior nurse and with myself and after talking with MD, it is best that she go to [facility] to be evaluated. Pt began to explain that she cannot afford another hospital visit at this time and every time she calls she feels she is sent to the hospital and then has to pay a copay. This RN apologized to Pt; However, explained that our top priority is the safety of her and her baby. Informed her that we are able to monitor baby and do an assessment in office, but that the hospital has many more resources available if she were to need stat labs as if we did labs we may not get them back right away. Pt voiced understanding, but stated she did just eat something and wants to monitor kick counts. Education sent to Pt via [employer]. Pt states these sx have been occurring for several days-so she feels it's unlikely serious and would like appt scheduled in office tomorrow AM and is agreeable to go to hospital if pain worsens. Advised Pt to it would be best to have someone get a BP monitor from a local drug store and to monitor BP and if >140/100 to call the office. Also advised Pt to call 911/have someone take her to ER if she develops severe abdominal pain, vaginal bleeding, decreased movement. Pt voiced understanding. Advised her to stay hydrated, rest, use heating pad to back/take hot shower, rest, and call office with any further questions/concerns. UMAIR Rojas Jennifer, MD 03/13/2025 4:09 PM Signed Ok Allergies As of Date: 03/13/2025 Noted Allergy Reaction ATARAX (HYDROXYZINE) 06/30/2023 14 - Other: See Comments Comments: Patient has paradoxical effect, she is hyperalert and is up all night. ACETAMINOPHEN 05/27/2022 6 - Diarrhea CHLORHEXIDINE 06/29/2023 2 - Rash Comments: Rash/burning CIPROFLOXACIN 06/29/2023 14 - Other: See Comments Comments: Family history of the allergy CLINDAMYCIN 06/29/2023 10 - Anaphylaxis IBUPROFEN 05/27/2022 6 - Diarrhea LACTOSE 11/02/2021 6 - Diarrhea PEANUT BUTTER FLAVOR 04/29/2023 6 - Diarrhea 8 - GI Upset PENICILLINS 01/08/2019 14 - Other: See Comments Comments: 06/29/23: Extensive family history of multiple antibiotic allergies including penicillins. Report multiple family members having anaphylaxis reactions. RED DYE 07/05/2023 5 - Intolerance TRAMADOL 09/11/2023 14 - Other: See Comments Comments: Blurred vision ZITHROMAX (AZITHROMYCIN) 01/27/2024 6 - Diarrhea Date Reviewed: 02/20/2025 Reviewed by: Shira Gloria APRN.BOOKING SUPERVISOR - Fully Assessed Reason for Visit: OB rib pain, edema in feet [Other] Prescriptions as of 03/14/2025 - omeprazole (PRILOSEC) 20 mg capsule Take 1 capsule by mouth once daily. - cyclobenzaprine (FLEXERIL) 5 mg tablet Take 1 tablet by mouth three times a day as needed. - aspirin, enteric coated (ECOTRIN LOW STRENGTH) 81 mg EC tablet Take 1 tablet by mouth once daily. - docusate sodium (COLACE) 100 mg capsule Take 1 capsule by mouth two times a day. - vit no.124/iron/folic ( VITAMIN ORAL) Take 2 Pieces by mouth once daily. Problem List As Of Date 03/13/2025 Noted Resolved Nausea AND vomiting [R11.2] 10/31/2021 11/01/2024 Diarrhea [R19.7] 10/31/2021 Abdominal pain [R10.9] 10/31/2021 Adjustment disorder [F43.20] 10/31/2021 A (more content not included)... Normal [facility] Examination level ultrasound on 02-16-2025 [facility] Radiology Study observation (narrative) [facility] BACTERIAL VAGINOSIS NAATon 0 02-08-2025 Lactobacillus crispatus+gasseri+jense jona + Gardnerella vaginalis + Atopobium vaginae rRNA FAVIOLA+probe Ql (Vag fld) Not detected Normal Not detected [facility] Comment on above: Order Comment: Speci men Type: SWABOrdering Facility: [facility] Address: [address] [place] [address] Performed By: #### C VTV, BVAMP ####[facility] LABCLIA [id number] [place] [address] [place] KANG/TRICHOMONAS NAATon 0 02-08-2025 C. glabrata RNA FAVIOLA+probe Ql (Vag fld) Not detected Normal Not detected [facility] Comment on above: Order Comment: Speci men Type: SWABOrdering Facility: [facility] Address: [address] [place] [address] Performed By: #### C VTV, BVAMP ####[facility] LABIA [id number] [place] [address] [place] Kang sp DNA FAVIOLA+probe Ql (Vag fld) Not detected Normal Not detected [facility] Comment on above: Order Comment: Speci men Type: SWABOrdering Facility: [facility] Address: [address] [place] [address] Result Comment: The Kang species group target includes C. albicans, C. tropicalis, C. parapsilosis, and C. dubliniensis. Performed By: #### C VTV, BVAMP ####[facility] HOSPITALIA [id number] [address] [place] T. vaginalis DNA FAVIOLA+probe Ql (Unsp spec) Not detected Normal Not detected [facility] Comment on above: Order Comment: Speci men Type: SWABOrdering Facility: [facility] Address: [address] [place] [address] Performed By: #### C VTV, BVAMP ####[facility] LABIA [id number] [place] [address] [place] CNPCarina 02-03-2025 CNPN Telephone (INTN) RHONDA COHEN ([id number]) 1 F Date Time Provider Department 02/03/25 SARWAT SNOW During your visit today, we recorded the following information about you: Sarwat Snow, RN 02/03/2025 10:14 AM Signed Treatment plan for Jarod signed and PA approved. Ready to schedule. Yessy Dejesus 02/03/2025 4:10 PM Signed Scheduled with patient Start email sent Allergies As of Date: 02/03/2025 Noted Allergy Reaction ATARAX (HYDROXYZINE) 06/30/2023 14 - Other: See Comments Comments: Patient has paradoxical effect, she is hyperalert and is up all night. ACETAMINOPHEN 05/27/2022 6 - Diarrhea CHLORHEXIDINE 06/29/2023 2 - Rash Comments: Rash/burning CIPROFLOXACIN 06/29/2023 14 - Other: See Comments Comments: Family history of the allergy CLINDAMYCIN 06/29/2023 10 - Anaphylaxis IBUPROFEN 05/27/2022 6 - Diarrhea LACTOSE 11/02/2021 6 - Diarrhea PEANUT BUTTER FLAVOR 04/29/2023 6 - Diarrhea 8 - GI Upset PENICILLINS 01/08/2019 14 - Other: See Comments Comments: 06/29/23: Extensive family history of multiple antibiotic allergies including penicillins. Report multiple family members having anaphylaxis reactions. RED DYE 07/05/2023 5 - Intolerance TRAMADOL 09/11/2023 14 - Other: See Comments Comments: Blurred vision ZITHROMAX (AZITHROMYCIN) 01/27/2024 6 - Diarrhea Date Reviewed: 01/31/2025 Reviewed by: Becky Rees PA-C - Fully Assessed Reason for Visit: Hematology [Other] Prescriptions as of 02/03/2025 - famotidine (PEPCID) 20 mg tablet Take 1 tablet by mouth two times a day. - cyclobenzaprine (FLEXERIL) 5 mg tablet Take 1 tablet by mouth three times a day as needed. - aspirin, enteric coated (ECOTRIN LOW STRENGTH) 81 mg EC tablet Take 1 tablet by mouth once daily. - docusate sodium (COLACE) 100 mg capsule Take 1 capsule by mouth two times a day. - vit no.124/iron/folic ( VITAMIN ORAL) Take 2 Pieces by mouth once daily. 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] 01/22/2024 Encounter for supervision of normal i*09/16/2024 Irritable bowel syndrome with both constipation* 025 Small intestinal bacterial overgrowth (SIBO) [K*09/16/2024 Lactose intolerance [E73.9] 09/16/2024 01/20/2025 24 weeks gestation of (HCC) [Z3A.24] 11/21/2024 01/20/2025 Abdominal pain during in third trimes*11/21/2024 Anemia during in third trimester (HCC*01/24/2025 29 weeks gestation of (HCC) [Z3A.29] 01/29/2025 Chest pain during (HCC) [O99.891, R07*01/29/2025 Maternal iron deficiency anemia complicating pr*01/31/2025 Encounter Status:Closed by SARWAT GRAY on 02/03/25 [facility] C[facility]N Telephone (OBGYWM) RHONDA COHEN ([id number]) 1 F Date Time Provider Department 01/31/25 JASMIN ARCHER During your visit today, we recorded the following information about you: Negrita Colby, RN 01/31/2025 8:56 AM Signed 29w4d Pt's mother calls, stating on Thursday Pt called o/c provider and was advised to go to [facility] for c/o chest pain/abdominal pain. Chest xray-normal, EKG-sinus tachycardia, Urine test completed. She states Pt was sent home-Dr never went over results and was sent home with no answers and was sent home with pepcid AND states she is still experiencing abdominal pain. Pt heard in background; therefore, this RN asked to speak to patient directly to get detailed information. Pt states her abdominal pain is a lot worse than on Thursday. States pain is so bad she has vomited. Pain is located in the middle band of abdomen and moves up and down in front of entire abdomen. Pt describes as a squeezing and tightness and pretty constant. Pt states she gets maybe a 5 minute break and it comes back for a couple of hours. Nothing makes it better. When it hurts, cannot catch her breath/cannot talk. Has tried hot shower, states tylenol gives her abdominal cramps and diarrhea. Pain at worse 8-8.5/10. Denies LOF, vaginal bleeding, chest pain, dysuria. Active FM. When asked if she is staying hydrated, Pt states Doing my best. Pepcid is not helping-took last at 3am. Pt states actually made things worse-made abdominal pain worse. Pt is not taking iron supplements as advised on 01/24/25 by LEONARDO. Advised Pt to drink gatorade or liquid IV to stay hydrated, to rest how she is most comfortable, and that this RN would sent message to o/c provider to see what is advised. Advised Pt that if before we call her back, she experiencing worsening abdominal pain or she began to experience vaginal bleeding to go to ER. Pt voiced understanding. Please see labs completed on 01/29/25 AND advise. No appointments available today. UMAIR Rojas Tara, RN 01/31/2025 10:10 AM Signed Spoke to JLeo. Pt is advised to stop taking pepcid if it is making her abdominal pain worse and begin taking Mylanta or Maalox as advised on box to see if it helps. Advised Pt to stay hydrated by drinking liquid IV or gatorade if water does not sound appealing. Discussed Unisom, B6, AND clifford for nausea. Discussed importance of Increase iron rich foods in diet (i.e. Lean red reds, green leafy vegetables, beans/lentils or dried fruits) AND starting an iron supplement-Ferrous Sulfate 325mg by mouth once every other day/Taking Iron with source of Vitamin C and to avoid taking 30 minutes before or after eating to increase absorption as advised by Vera Hatch APRN, CNM on 01/24/25 d/t anemia labs. Informed Pt that Dr. Archer reviewed her lab results, EKG, chest x-ray lab, and reports from [facility] visit on 01/29/25 and feels that she should continue to monitor and if abdominal pain does not improve/worsens with above measures to return to [facility]. Advised to use heating pad to back/hips if needed to help sooth pain. Also advised Pt to go to [facility] if LOF, decreased movement, vaginal bleeding, chest pain/shortness of breath.Pt denies questions at this time and voiced understanding of above advise.Negrita Colby RN Allergies As of Date: 01/31/2025 Noted Allergy Reaction ATARAX (HYDROXYZINE) 06/30/2023 14 - Other: See Comments Comments: Patient has paradoxical effect, she is hyperalert and is up all night. ACETAMINOPHEN 05/27/2022 6 - Diarrhea CHLORHEXIDINE 06/29/2023 2 - Rash Comments: Rash/burning CIPROFLOXACIN 06/29/2023 14 - Other: See Comments Comments: Family history of the allergy CLINDAMYCIN 06/29/2023 10 - Anaphylaxis IBUPROFEN 05/27/2022 6 - Diarrhea LACTOSE 11/02/2021 6 - Diarrhea PEANUT BUTTER FLAVOR 04/29/2023 6 - Diarrhea 8 - GI Upset PENICILLINS 01/08/2019 14 - Other: See Comments Comments: 06/29/23: Extensive family history of multiple antibiotic allergies including penicillins. Report multiple family members having anaphylaxis reactions. RED DYE 07/05/2023 5 - Intolerance TRAMADOL 09/11/2023 14 - Other: See Comments Comments: Blurred vision ZITHROMAX (AZITHROMYCIN) 01/27/2024 6 - Diarrhea Date Reviewed: 01/29/2025 Reviewed by: Tiara Mccoy RN - Fully Assessed Reason for Visit: Abdominal Pain [1] Prescriptions as of 01/31/2025 - famotidine (PEPCID) 20 mg tablet Take 1 tablet by mouth two times a day. - cyclobenzaprine (FLEXERIL) 5 mg tablet Take 1 tablet by mouth three times a day as needed. - aspirin, enteric coated (ECOTRIN LOW STRENGTH) 81 mg EC tablet Take 1 tablet by mouth once daily. - docusate sodium (COLACE) 100 mg capsule Take 1 capsule by mouth two times a day. - vit no.124/iron/folic ( VITAMIN ORAL) Take (more content not included)... Normal [facility] Amylase SerPl-cCncon 025 Amylase [Catalytic activity/Vol] 40 U/L Normal 30-104 [facility] Comment on above: Order Comment: Fahad castellanos Type: BLOOD SPECIMENOrdering Facility: [facility] Address: [address] [place] [address] Performed By: #### 3 3762-6, 3016-3, 1798-8, 13079-0, 3040-3 ####[facility] LABORATORYCLIA [id number] [address] STATES OF [facility] CBC W Auto Differential pane l (Bld)on 01-29-2025 Basophils (Bld) [#/Vol] 0.04 10*3/uL Normal <0.11 [facility] Comment on above: Order Comment: Fahad castellanos Type: BLOOD SPECIMEN [facility] Address: [address] [place] [address] Performed By: #### 5 7021-8 #### [facility] CLIA [id number] [address] [place] Basophils/100 WBC (Bld) 0.3 % Normal A [facility] Comment on above: Order Comment: Speci men Type: BLOOD SPECIMEN [facility] Address: [facility] [place] [address] Performed By: #### 5 7021-8 #### [facility] CLIA [id number] [address] [place] Differential cell count method Nom (Bld) Auto Normal [facility] Comment on above: Order Comment: Speci men Type: BLOOD SPECIMEN [facility] Address: [address] [place] [address] Performed By: #### 5 7021-8 #### [facility] CLIA [id number] [address] OF [facility] Eosinophils (Bld) [#/Vol] 0.62 10*3/uL High <0.46 [facility] Comment on above: Order Comment: Speci men Type: BLOOD SPECIMEN [facility] Address: [address] [place] [address] Performed By: #### 5 7021-8 #### [facility] CLIA [id number] [address] Eosinophils/100 WBC (Bld) 4.2 % Normal [facility] Comment on above: Order Comment: Speci men Type: BLOOD SPECIMEN [facility] Address: [address] [place] [address] Performed By: #### 5 7021-8 #### [facility] CLIA [id number] [address] [place] Erythrocyte distribution width (RBC) [Ratio] 13.5 % Normal 11.5-15.0 [facility] Comment on above: Order Comment: Speci men Type: BLOOD SPECIMEN [facility] Address: [address] [place] [address] Performed By: #### 5 7021-8 #### [facility] CLIA [id number] 1 [place] [address] [place] Hematocrit (Bld) [Volume fraction] 29.8 % Low 36.0-46.0 [facility] Comment on above: Order Comment: Speci men Type: BLOOD SPECIMEN [facility] Address: [address] [place] [address] Performed By: #### 5 7021-8 #### [facility] CLIA [id number] [address] [place] Hemoglobin (Bld) [Mass/Vol] 9.3 g/dL Low 11.5-15.5 [facility] Comment on above: Order Comment: Speci men Type: BLOOD SPECIMEN [facility] Address: [address] [place] [address] Performed By: #### 5 7021-8 #### [facility] CLIA [id number] [address] [place] Immature granulocytes (Bld) [#/Vol] 0.16 10*3/uL High <0.10 [facility] Comment on above: Order Comment: Speci men Type: BLOOD SPECIMEN [facility] Address: [address] [place] [address] Performed By: #### 5 7021-8 #### [facility] CLIA [id number] [address] [place] Immature granulocytes/100 WBC (Bld) 1.1 % Normal [facility] Comment on above: Order Comment: Speci men Type: BLOOD SPECIMEN [facility] Address: [address] [place] [address] Performed By: #### 5 7021-8 #### [facility] CLIA [id number] [address] [place] Lymphocytes (Bld) [#/Vol] 1.87 10*3/uL Normal 1.00-4.00 [facility] Comment on above: Order Comment: Speci men Type: BLOOD SPECIMEN [facility] Address: [address] [place] [address] Performed By: #### 5 7021-8 #### [facility] CLIA [id number] [address] Lymphocytes/100 WBC (Bld) 12.8 % Normal [facility] Comment on above: Order Comment: Speci men Type: BLOOD SPECIMEN [facility] Address: [address] [place] [address] Performed By: #### 5 7021-8 #### [facility] CLIA [id number] [address] MCH (RBC) [Entitic mass] 25.1 pg Low 26.0-34.0 [facility] Comment on above: Order Comment: Speci men Type: BLOOD SPECIMEN [facility] Address: [address] [place] [address] Performed By: #### 5 7021-8 #### [facility] CLIA [id number] [address] MCHC (RBC) [Mass/Vol] 31.2 g/dL Normal 30.5-36.0 [facility] Comment on above: Order Comment: Speci men Type: BLOOD SPECIMEN [facility] Address: [address] [place] [address] Performed By: #### 5 7021-8 #### [facility] CLIA [id number] [address] MCV (RBC) [Entitic vol] 80.5 fL Normal 80.0-100.0 [facility] Comment on above: Order Comment: Speci men Type: BLOOD SPECIMEN [facility] Address: [address] [place] [address] Performed By: #### 5 7021-8 #### [facility] CLIA [id number] [address] Monocytes (Bld) [#/Vol] 1.04 10*3/uL High <0.87 [facility] Comment on above: Order Comment: Speci men Type: BLOOD SPECIMEN [facility] Address: [address] [place] [address] Performed By: #### 5 7021-8 #### [facility] CLIA [id number] [address] [place] Monocytes/100 WBC (Bld) 7.1 % Normal A [facility] Comment on above: Order Comment: Speci men Type: BLOOD SPECIMEN [facility] Address: [address] [place] [address] Performed By: #### 5 7021-8 #### [facility] CLIA [id number] [address] [place] [address] [place] Neutrophils (Bld) [#/Vol] 10.92 10*3/uL High 1.45-7.50 [facility] Comment on above: Order Comment: Speci men Type: BLOOD SPECIMEN [facility] Address: [address] [place] [address] Performed By: #### 5 7021-8 #### [facility] CLIA [id number] [address] [place] Neutrophils/100 WBC (Bld) 74.5 % Normal [facility] Comment on above: Order Comment: Speci men Type: BLOOD SPECIMEN [facility] Address: [address] [place] [address] Performed By: #### 5 7021-8 #### [facility] CLIA [id number] [address] [place] Nucleated RBC (Bld) [#/Vol] 10*3/uL Normal <0.01 [facility] Comment on above: Order Comment: Speci men Type: BLOOD SPECIMEN [facility] Address: [address] [place] [address] Performed By: #### 5 7021-8 #### [facility] CLIA [id number] [address] [place] Nucleated RBC/100 WBC (Bld) [Ratio] 0.0 /100 WBC Normal [facility] Comment on above: Order Comment: Speci men Type: BLOOD SPECIMEN [facility]ing Facility: [facility] Address: [address] [place] [address] Performed By: #### 5 7021-8 #### [facility] CLIA [id number] [address] Platelet mean volume (Bld) [Entitic vol] 10.3 fL Normal 9.0-12.7 [facility] Comment on above: Order Comment: Speci men Type: BLOOD SPECIMEN [facility]ing Facility: [facility] Address: [address] [place] [address] Performed By: #### 5 7021-8 #### [facility] CLIA [id number] [address] [place] Platelets (Bld) [#/Vol] 296 10*3/uL Normal 150-400 [facility] Comment on above: Order Comment: Speci men Type: BLOOD SPECIMEN [facility] Facility: [facility] Address: [address] [place] [address] Performed By: #### 5 7021-8 #### [facility] CLIA [id number] [address] [place] RBC (Bld) [#/Vol] 3.70 10*6/uL Low 3.90-5.20 [facility] Comment on above: Order Comment: Speci men Type: BLOOD SPECIMEN [facility] Facility[facility] Address: [address] [place] [address] Performed By: #### 5 7021-8 #### [facility] CLIA [id number] [address] [place] WBC (Bld) [#/Vol] 14.65 10*3/uL High 3.70-11.00 [facility] Comment on above: Order Comment: Speci men Type: BLOOD SPECIMEN [facility]ing Facility: [facility] Address: [facility] [place] [address] Performed By: #### 5 7021-8 #### [facility] CLIA [id number] [address] [place] Comprehensive metabolic 2000 panelon 01-29-2025 Albumin [Mass/Vol] 3.5 g/dL Low 3.9-4.9 [facility] Comment on above: Order Comment: Speci men Type: BLOOD SPECIMENOrdering Facility: [facility] Address: [address] [place] [address] Performed By: #### 3 3762-6, 3016-3, 1798-8, 29419-2, 3040-3 ####[facility]IA [id number] [place] [address] [place] ALP [Catalytic activity/Vol] 112 U/L Normal 34-123 [facility] Comment on above: Order Comment: Speci men Type: BLOOD SPECIMENOrdering Facility: [facility] Address: [address] [place] [address] Performed By: #### 3 3762-6, 3016-3, 1798-8, 99176-1, 3040-3 ####[facility]ORYCLIA [id number] [address] [facility] ALT With P-5'-P [Catalytic activity/Vol] 10 U/L Normal 7-38 [facility] Comment on above: Order Comment: Speci men Type: BLOOD SPECIMENOrdering Facility: [facility] Address: [address] [place] [address] Performed By: #### 3 3762-6, 3016-3, 1798-8, 84981-5, 3040-3 ####[facility]ORYCLIA [id number] [place] [address] [place] [address] [facility] Anion gap [Moles/Vol] 12 mmol/L Normal 8-15 [facility] Comment on above: Order Comment: Speci men Type: BLOOD SPECIMENOrdering Facility: [facility] Address: [address] [place] [address] Performed By: #### 3 3762-6, 3016-3, 1798-8, 74170-9, 3040-3 ####[facility]ORYCLIA [id number] [place] [address] [place] [address] [facility] AST With P-5'-P [Catalytic activity/Vol] 14 U/L Normal 13-35 [facility] Comment on above: Order Comment: Speci men Type: BLOOD SPECIMENOrdering Facility: [facility] Address: [address] [place] [address] Performed By: #### 3 3762-6, 3016-3, 1798-8, 51346-4, 3040-3 ####[facility]ORYCLIA [id number] [place] [address] [place] Bilirubin [Mass/Vol] mg/dL Low 0.2-1.3 [facility] Comment on above: Order Comment: Speci men Type: BLOOD SPECIMENOrdering Facility: [facility] Address: [address] [place] [address] Performed By: #### 3 3762-6, 3016-3, 1798-8, 24329-5, 3040-3 ####[facility]ORYCLIA [id number] [place] [address] [place] Calcium [Mass/Vol] 8.5 mg/dL Normal 8.5-10.2 [facility] Comment on above: Order Comment: Speci men Type: BLOOD SPECIMENOrdering Facility: [facility] Address: [address] [place] [address] Performed By: #### 3 3762-6, 3016-3, 1798-8, 07767-5, 3040-3 ####[facility]ORYCLIA [id number] [place] [address] [place] Chloride [Moles/Vol] 105 mmol/L Normal 98-107 [facility] Comment on above: Order Comment: Speci men Type: BLOOD SPECIMENOrdering Facility: [facility] Address: [address] [place] [address] Performed By: #### 3 3762-6, 3016-3, 1798-8, 93642-6, 3040-3 ####[facility]ORYCLIA [id number] [place] [address] [place] CO2 [Moles/Vol] 19 mmol/L Low 22-30 [facility] Comment on above: Order Comment: Speci men Type: BLOOD SPECIMENOrdering Facility: [facility] Address: [address] [place] [address] Performed By: #### 3 3762-6, 3016-3, 1798-8, 77406-8, 3040-3 ####[facility]ORYCLIA [id number] [place] [address] [place] Creatinine [Mass/Vol] 0.41 mg/dL Low 0.58-0.96 [facility] Comment on above: Order Comment: Speci men Type: BLOOD SPECIMENOrdering Facility: [facility] Address: [address] [place] [address] Performed By: #### 3 3762-6, 3016-3, 1798-8, 45778-9, 3040-3 ####[facility] [id number] [address] [facility] Creatinine and Glomerular filtration rate.predicted panel (S/P/Bld) 144 mL/min/1.73m??? Normal >=60 [facility] Comment on above: Order Comment: Kamarii emanuel Type: BLOOD SPECIMENOrdering Facility: [facility] Address: [address] [place] [address] Result Comment: Zully mated Glomerular Filtration Rate (eGFR) is calculated using the 2020 CKD-EPI creatinine equation. This equation utilizes serum creatinine, sex, and age as parameters. The creatinine assay has traceable calibration to isotope dilution-mass spectrometry. Refer to KDIGO guidelines for clinical interpretation. In patients with unstable renal function, e.g. those with acute kidney injury, the eGFR may not accurately reflect actual GFR. Performed By: #### 3 3762-6, 3016-3, 1798-8, 61616-4, 3040-3 ####[facility]ORYCLIA [id number] [place] [address] [place] Glucose [Mass/Vol] 101 mg/dL High 74-99 [facility] Comment on above: Order Comment: Speci men Type: BLOOD SPECIMENOrdering Facility: [facility] Address: [address] [place] [address] Result Comment: The [place] Diabetes Association (ADA) provides guidance for cutoff values for fasting glucose and random glucose. The ADA defines fasting as no caloric intake for at least 8 hours. Fasting plasma glucose results between 100 to 125 mg/dL indicate increased risk for diabetes (prediabetes). Fasting plasma glucose results greater than or equal to 126 mg/dL meet the criteria for diagnosis of diabetes. In the absence of unequivocal hyperglycemia, results should be confirmed by repeat testing. In a patient with classic symptoms of hyperglycemia or hyperglycemic crisis, random plasma glucose results greater than or equal to 200 mg/dL meet the criteria for diagnosis of diabetes. Reference: Standards of Medical Care in Diabetes 2016, [place] Diabetes Association. Diabetes Care. 2016.39(Suppl 1). Performed By: #### 3 3762-6, 3016-3, 1798-8, 85770-7, 3040-3 ####[facility]ORYCLIA [id number] [place] [address] [place] Potassium [Moles/Vol] 3.6 mmol/L Low 3.7-5.1 [facility] Comment on above: Order Comment: Speci men Type: BLOOD SPECIMENOrdering Facility: [facility] Address: [address] [place] [address] Performed By: #### 3 3762-6, 3016-3, 1798-8, 12247-8, 3040-3 ####[facility]ORYCLIA [id number] [place] [address] [place] Protein [Mass/Vol] 6.2 g/dL Low 6.3-8.0 [facility] Comment on above: Order Comment: Speci men Type: BLOOD SPECIMENOrdering Facility: [facility] Address: [address] [place] [address] Performed By: #### 3 3762-6, 3016-3, 1798-8, 72265-8, 3040-3 ####[facility]ORYCLIA [id number] [place] [address] [place] Sodium [Moles/Vol] 136 mmol/L Normal 136-144 [facility] Comment on above: Order Comment: Speci men Type: BLOOD SPECIMENOrdering Facility: [facility] Address: [address] [place], [place] [address] Performed By: #### 3 3762-6, 3016-3, 1798-8, 90933-4, 3040-3 ####[facility]ORYCLIA [id number] [place] [address] [place] Urea nitrogen [Mass/Vol] 8 mg/dL Normal 7-21 [facility] Comment on above: Order Comment: Speci men Type: BLOOD SPECIMENOrdering Facility: [facility] Address: [address] [place] [address] Performed By: #### 3 3762-6, 3016-3, 1798-8, 02648-9, 3040-3 ####[facility]ORYCLIA [id number] [address] [facility] ECG COMPLETEon 01-29-2025 ECG COMPLETE Ventricular Rate : 112 BPM Atrial Rate : 112 BPM P-R Interval : 118 ms QRS Duration : 82 ms Q-T Interval : 334 ms QTC Calculation(Bazett) : 455 ms Calculated P [place] : 16 degrees Calculated R [place] : 71 degrees Calculated T [place] : -17 degrees SINUS TACHYCARDIA NONSPECIFIC T WAVE ABNORMALITY ABNORMAL ECG NO PREVIOUS ECGS AVAILABLE Confirmed by MD MERINO ANUBHAV ([id number]) on 01/30/2025 1:08:41 PM NAME : RHONDA COHEN PID : [id number] : 2005 Gender : Female Race : ORD : [id number] Procedure Date : Jan 29 2025 13:38:35 Edit Date : Jan 30 2025 13:08:46 Diagnosis: SINUS TACHYCARDIA NONSPECIFIC T WAVE ABNORMALITY ABNORMAL ECG NO PREVIOUS ECGS AVAILABLE Confirmed by MD MERINO ANUBHAV ([id number]) on 01/30/2025 1:08:41 PM Test Reason : Chest Pain Location : 200 : [facility] TR04 Overread By : MD MERINO ANUBHAV Edited By : MD MERINO ANUBHAV Referred By : , Acquired by : TYSHAWN DALLAS Formerly named [facility] 2024 Fibrinogen Coag (PPP) [Mass/Vol] 441 mg/dL High 200-400 [facility] Comment on above: Order Comment: Speci men Type: BLOOD SPECIMEN [facility] Address: [address] [place] [address] Performed By: #### 3 255-7 #### [facility] CLIA [id number] [address] HIGH SENSITIVITY TROPONIN To n 01-29-2025 Troponin T.cardiac High sensitivity method [Mass/Vol] <6 Normal <12 [facility] Comment on above: Order Comment: Speci men Type: BLOOD SPECIMEN [facility] Facility[facility] Address: [address] [place] [address] Performed By: #### H STNT #### [facility] CLIA [id number] [address] Lipase SerPl-cCncon 01-30-20 25 Lipase [Catalytic activity/Vol] 24 U/L Normal 16-61 [facility] Comment on above: Order Comment: Speci men Type: BLOOD SPECIMENOrdering Facility: [facility] Address: [address] [place] [address] Performed By: #### 3 3762-6, 3016-3, 1798-8, 85393-4, 3040-3 ####[facility]ORYCLIA [id number] [address] [place] NT-proBNP SerPl-mCncon 01-29 Natriuretic peptide.B prohormone N-Terminal [Mass/Vol] 55 pg/mL Normal <125 [facility] Comment on above: Order Comment: Speci men Type: BLOOD SPECIMENOrdering Facility: [facility] Address: [address] [place] [address] Performed By: #### 3 3762-6, 3016-3, 1798-8, 89634-0, 3040-3 ####[facility]ORYCLIA [id number] [address] [place] TSH SerPl-aCncon 01-29-2025 TSH Qn 2.300 m[IU]/L Normal 0.270-4.200 [facility] Comment on above: Order Comment: Speci men Type: BLOOD SPECIMENOrdering Facility: [facility] Address: [address] [place] [address] Result Comment: If t he patient is , TSH reference range varies by gestational period: First Trimester (weeks 9-12): 0.180-2.990 mIU/L Second Trimester: 0.110-3.980 mIU/L Third Trimester: 0.480-4.710 mIU/L Dustin Mohan et al. A Practical Approach for the Verifications and Determination of Site- and Trimester-Specific Reference Intervals for Thyroid Function tests in . Thyroid, 2019:29:3:412-420. Fernando Gregg, et al. 2017 Guidelines of the [place] Thyroid Association for the Diagnosis and Management of Thyroid Disease during and the . Thyroid, 2017:27:3:315-389. Performed By: #### 3 3762-6, 3016-3, 1798-8, 55505-1, 3040-3 ####[facility]ORYCLIA [id number] [address] OF [facility] Urinalysis complete panel (U )on 01-29-2025 Bacteria LM.HPF (Urine sed) [#/Area] Many Abnormal None Seen [facility] Comment on above: Order Comment: Speci men Type: URINE SPECIMEN [facility] Facility[facility] Address: [address] [place] [address] Performed By: #### 2 4356-8 #### [facility] CLIA [id number] [address] [place] Bilirubin Ql (U) Negative Normal Negative [facility] Comment on above: Order Comment: Speci men Type: URINE SPECIMEN [facility] Facility[facility] Address: [address] [place] [address] Performed By: #### 2 4356-8 #### [facility] CLIA [id number] [address] [place] Clarity (Unsp spec) Turbid Abnormal Clear [facility] Comment on above: Order Comment: Speci men Type: URINE SPECIMEN [facility] Address: [address] [place] [address] Performed By: #### 2 4356-8 #### [facility] CLIA [id number] [address] [place] Color (U) Yellow Normal yellow [facility] Comment on above: Order Comment: Speci men Type: URINE SPECIMEN [facility] Facility[facility] Address: [address] [place] [address] Performed By: #### 2 4356-8 #### [facility] CLIA [id number] [address] [facility] Epithelial cells LM.HPF (Urine sed) [#/Area] Many Normal [facility] Comment on above: Order Comment: Speci men Type: URINE SPECIMEN [facility] Facility[facility] Address: [address] [place] [address] Performed By: #### 2 4356-8 #### [facility] CLIA [id number] [address] [place] Glucose Test strip (U) [Mass/Vol] Negative Normal Trace, Negative [facility] Comment on above: Order Comment: Speci men Type: URINE SPECIMEN [facility] Address: [address] [place] [address] Performed By: #### 2 4356-8 #### [facility] CLIA [id number] [address] [place] Hemoglobin Ql (U) Negative Normal Negative, Trace [facility] Comment on above: Order Comment: Speci men Type: URINE SPECIMEN [facility] Facility[facility] Address: [address] [place] [address] Performed By: #### 2 4356-8 #### [facility] CLIA [id number] [address] [place] Ketones Ql (U) 1+ Abnormal Negative, Trace [facility] Comment on above: Order Comment: Speci men Type: URINE SPECIMEN [facility] Address: [address] [place] [address] Performed By: #### 2 4356-8 #### [facility] CLIA [id number] [address] Leukocyte esterase Test strip Ql (U) 25 Barbara/uL Normal Negative, 25 Barbara/uL [facility] Comment on above: Order Comment: Speci men Type: URINE SPECIMEN [facility] Facility[facility] Address: [address] [place] [address] Performed By: #### 2 4356-8 #### [facility] CLIA [id number] [address] Nitrite Ql (U) Negative Normal Negative [facility] Comment on above: Order Comment: Speci men Type: URINE SPECIMEN [facility] Facility[facility] Address: [address] [place] [address] Performed By: #### 2 4356-8 #### [facility] CLIA [id number] [address] [facility] pH (U) 6.5 [pH] Normal 5.0-8.0 [facility] Comment on above: Order Comment: Speci men Type: URINE SPECIMEN [facility] Facility[facility] Address: [address] [place] [address] Performed By: #### 2 4356-8 #### [facility] CLIA [id number] [address] Protein (U) [Mass/Vol] Negative Normal Trace, Negati ve [facility] Comment on above: Order Comment: Speci men Type: URINE SPECIMEN [facility] Address: [address] [place] [address] Performed By: #### 2 4356-8 #### [facility] CLIA [id number] [address] RBC LM.HPF (Urine sed) [#/Area] 0-3 /HPF Normal 0-3 /HPF [facility] Comment on above: Order Comment: Speci men Type: URINE SPECIMEN [facility] Facility[facility] Address: [address] [place] [address] Performed By: #### 2 4356-8 #### [facility] CLIA [id number] [address] Specific gravity (U) [Rel density] 1.014 Normal 1.005-1.030 [facility] Comment on above: Order Comment: Speci men Type: URINE SPECIMEN [facility] Address: [address] [place] [address] Performed By: #### 2 4356-8 #### [facility] CLIA [id number] [address] [place] Urobilinogen Ql (U) Normal Normal Normal [facility] Comment on above: Order Comment: Speci men Type: URINE SPECIMEN [facility] Address: [address] [place] [address] Performed By: #### 2 4356-8 #### [facility] CLIA [id number] [address] WBC LM.HPF (Urine sed) [#/Area] 0-5 /HPF Normal 0-5 /HPF [facility] Comment on above: Order Comment: Speci men Type: URINE SPECIMEN [facility] Facility[facility] Address: [address] [place] [address] Performed By: #### 2 4356-8 #### [facility] CLIA [id number] [address] [place] XR CHEST 2V FRONTAL/LATon XR CHEST 2V FRONTAL/LAT * * *Final Repor t* * * DATE OF EXAM: Jan 29 2025 3:20PM AKX [id number] - XR CHEST 2V FRONTAL/LAT / PROCEDURE REASON: Shortness of breath * * * * Physician Interpretation * * * * EXAMINATION: CHEST RADIOGRAPH (2 VIEW FRONTAL and LATERAL) CLINICAL HISTORY: Shortness of breath. MQ: XC2_6 EXAM DATE/TIME: 01/29/2025 3:20 PM COMPARISON: AP chest 10/31/2021 RESULT: Lines, tubes, and devices: None. Lungs and pleura: No consolidation. No lung mass. No pleural effusion. No pneumothorax. Incidental azygous fissure is again noted in the medial right upper lobe. Cardiomediastinal silhouette: Within normal limits and unchanged. Bones and soft tissues: Unremarkable. IMPRESSION: No acute radiographic abnormality. Pet Sitter: PSCB Transcribe Date/Time: Jan 29 2025 4:04P Dictated by : MATTY ALVARADO MD This examination was interpreted and the report reviewed and electronically signed by: MATTY ALVARADO MD on Jan 29 2025 4:05PM EST [id number] CN Normal [facility] CBC W Auto Differential pane l (Bld)on 01-24-2025 Basophils (Bld) [#/Vol] 0.05 10*3/uL Normal <0.11 [facility] Comment on above: Order Comment: Speci men Type: BLOOD SPECIMENOrdering Facility: [facility] Address: [address] [place] [address] Performed By: #### 5 7021-8 ####[facility] [id number] [place] [address] [place] Basophils/100 WBC (Bld) 0.4 % Normal C [facility] Comment on above: Order Comment: Speci men Type: BLOOD SPECIMENOrdering Facility: [facility] Address: [address] [place] [address] Performed By: #### 5 7021-8 ####[facility]ENTERLIA [id number] [place] [address] [place] Differential cell count method Nom (Bld) Auto Normal [facility] Comment on above: Order Comment: Speci men Type: BLOOD SPECIMENOrdering Facility: [facility] Address: [address] [place] [address] Performed By: #### 5 7021-8 ####[facility] [id number] [place] [address] [place] Eosinophils (Bld) [#/Vol] 0.51 10*3/uL High <0.46 [facility] Comment on above: Order Comment: Speci men Type: BLOOD SPECIMENOrdering Facility: [facility] Address: [address] [place] [address] Performed By: #### 5 7021-8 ####[facility]ERNCLIA [id number] [place] [address] [place] Eosinophils/100 WBC (Bld) 4.1 % Normal [facility] Comment on above: Order Comment: Speci men Type: BLOOD SPECIMENOrdering Facility: [facility] Address: [address] [place] [address] Performed By: #### 5 7021-8 ####[facility]ENTERNCJORD[facility] [id number] [place] [address] [place] Erythrocyte distribution width (RBC) [Ratio] 13.2 % Normal 11.5-15.0 [facility] Comment on above: Order Comment: Speci men Type: BLOOD SPECIMENOrdering Facility: [facility] Address: [address] [place] [address] Performed By: #### 5 7021-8 ####[facility]ENTERNCLIA [id number] [place] [address] [place] Hematocrit (Bld) [Volume fraction] 29.4 % Low 36.0-46.0 [facility] Comment on above: Order Comment: Speci men Type: BLOOD SPECIMENOrdering Facility: [facility] Address: [address] [place] [address] Performed By: #### 5 7021-8 ####[facility]ENTERNCLI [id number] [place] [address] [place] Hemoglobin (Bld) [Mass/Vol] 9.4 g/dL Low 11.5-15.5 [facility] Comment on above: Order Comment: Speci men Type: BLOOD SPECIMENOrdering Facility: [facility] Address: [address] [place] [address] Performed By: #### 5 7021-8 ####[facility] [id number] [place] [address] [place] Immature granulocytes (Bld) [#/Vol] 0.12 10*3/uL High <0.10 [facility] Comment on above: Order Comment: Speci men Type: BLOOD SPECIMENOrdering Facility: [facility] Address: [address] [place] [address] Performed By: #### 5 7021-8 ####[facility] CENTERSAJIA [id number] [place] [address] [place] Immature granulocytes/100 WBC (Bld) 1.0 % Normal [facility] Comment on above: Order Comment: Speci men Type: BLOOD SPECIMENOrdering Facility: [facility] Address: [address] [place] [address] Performed By: #### 5 7021-8 ####[facility] CENTERJOHANNEAmbrosio [id number] [place] [address] [place] Lymphocytes (Bld) [#/Vol] 1.80 10*3/uL Normal 1.00-4.00 [facility] Comment on above: Order Comment: Speci men Type: BLOOD SPECIMENOrdering Facility: [facility] Address: [address] [place] [address] Performed By: #### 5 7021-8 ####[facility] CENTERJOHANNELIA [id number] [place] [address] [place] Lymphocytes/100 WBC (Bld) 14.3 % Normal [facility] Comment on above: Order Comment: Speci men Type: BLOOD SPECIMENOrdering Facility: [facility] Address: [address] [place] [address] Performed By: #### 5 7021-8 ####[facility]ENTERNCLIA [id number] [place] [address] [place] MCH (RBC) [Entitic mass] 26.1 pg Normal 26.0-34.0 [facility] Comment on above: Order Comment: Speci men Type: BLOOD SPECIMENOrdering Facility: [facility] Address: [address] [place] [address] Performed By: #### 5 7021-8 ####[facility] [id number] [place] [address] [place] MCHC (RBC) [Mass/Vol] 32.0 g/dL Normal 30.5-36.0 [facility] Comment on above: Order Comment: Speci men Type: BLOOD SPECIMENOrdering Facility: [facility] Address: [address] [place] [address] Performed By: #### 5 7021-8 ####[facility] [id number] [place] [address] [place] MCV (RBC) [Entitic vol] 81.7 fL Normal 80.0-100.0 [facility] Comment on above: Order Comment: Speci men Type: BLOOD SPECIMENOrdering Facility: [facility] Address: [address] [place] [address] Performed By: #### 5 7021-8 ####[facility] [id number] [place] [address] [place] Monocytes (Bld) [#/Vol] 1.06 10*3/uL High <0.87 [facility] Comment on above: Order Comment: Speci men Type: BLOOD SPECIMENOrdering Facility: [facility] Address: [address] [place] [address] Performed By: #### 5 7021-8 ####[facility] [id number] [place] [address] [place] Monocytes/100 WBC (Bld) 8.4 % Normal C [facility] Comment on above: Order Comment: Speci men Type: BLOOD SPECIMENOrdering Facility: [facility] Address: [address] [place] [address] Performed By: #### 5 7021-8 ####[facility] [id number] [place] [address] [place] Neutrophils (Bld) [#/Vol] 9.01 10*3/uL High 1.45-7.50 [facility] Comment on above: Order Comment: Speci men Type: BLOOD SPECIMENOrdering Facility: [facility] Address: [address] [place] [address] Performed By: #### 5 7021-8 ####[facility] [id number] [place] [address] [place] Neutrophils/100 WBC (Bld) 71.8 % Normal [facility] Comment on above: Order Comment: Speci men Type: BLOOD SPECIMENOrdering Facility: [facility] Address: [address] [place] [address] Performed By: #### 5 7021-8 ####[facility] [id number] [place] [address] [place] Nucleated RBC (Bld) [#/Vol] 10*3/uL Normal <0.01 [facility] Comment on above: Order Comment: Speci men Type: BLOOD SPECIMENOrdering Facility: [facility] Address: [address] [place] [address] Performed By: #### 5 7021-8 ####[facility] [id number] [place] [address] [place] Nucleated RBC/100 WBC (Bld) [Ratio] 0.0 /100 WBC Normal [facility] Comment on above: Order Comment: Speci men Type: BLOOD SPECIMENOrdering Facility: [facility] Address: [address] [place] [address] Performed By: #### 5 7021-8 ####[facility] JAMAICAA [id number] [place] [address] [place] Platelet mean volume (Bld) [Entitic vol] 10.2 fL Normal 9.0-12.7 [facility] Comment on above: Order Comment: Speci men Type: BLOOD SPECIMENOrdering Facility: [facility] Address: [address] [place] [address] Performed By: #### 5 7021-8 ####[facility] HERBERTHBRECKSVILLENCANTHONYA [id number] [place] [address] [place] Platelets (Bld) [#/Vol] 311 10*3/uL Normal 150-400 [facility] Comment on above: Order Comment: Speci men Type: BLOOD SPECIMENOrdering Facility: [facility] Address: [address] [place] [address] Performed By: #### 5 7021-8 ####[facility] [id number] [place] [address] [place] RBC (Bld) [#/Vol] 3.60 10*6/uL Low 3.90-5.20 [facility] Comment on above: Order Comment: Speci men Type: BLOOD SPECIMENOrdering Facility: [facility] Address: [address] [place] [address] Performed By: #### 5 7021-8 ####[facility] [id number] [place] [address] [place] WBC (Bld) [#/Vol] 12.55 10*3/uL High 3.70-11.00 [facility] Comment on above: Order Comment: Speci men Type: BLOOD SPECIMENOrdering Facility: [facility] Address: [address] [place] [address] Performed By: #### 5 7021-8 ####[facility] [id number] [place] [address] [place] Ferritin SerPl-mCncon 2024 Ferritin [Mass/Vol] 7.1 ng/mL Low 14.7-205.1 [facility] Comment on above: Order Comment: Speci men Type: BLOOD SPECIMENOrdering Facility: [facility] Address: [address] [place] [address] Performed By: #### 5 0190-8, 2276-4 ####[facility] LABCLIA [id number] [place] [address] [place] GESTATIONAL GLUCOSE SCREEN, 1-HOUR, 50 GRAM, NON-FASTINGon 01-24-2025 Glucose [Mass/Vol] 104 mg/dL Normal 74-134 [facility] Comment on above: Order Comment: Speci men Type: BLOOD SPECIMENOrdering Facility: [facility] Address: [address] [place] [address] Result Comment: [facility] Congress of Obstetricians and Gynecologists (Janey/Tamiko) guidelines state a gestational diabetes mellitus positive screen is made, in women not previously diagnosed with overt diabetes, when the 1 hr plasma glucose level is equal to or above 140 mg/dL. [facility] Payable Manager and [facility] [place] recommends a 135 mg/dL cutoff. Performed By: #### G LTGST ####[facility] [id number] [place] [address] [place] Iron and Iron binding capaci ty panelon 01-24-2025 Iron [Mass/Vol] 20 ug/dL Low 41-186 [facility] Comment on above: Order Comment: Speci men Type: BLOOD SPECIMENOrdering Facility: [facility] Address: [address] [place] [address] Performed By: #### 5 0190-8, 6-4 ####[facility] LABCL[facility] [id number] [place] [address] [place] Iron binding capacity [Mass/Vol] 443 ug/dL High 232-386 [facility] Comment on above: Order Comment: Speci men Type: BLOOD SPECIMENOrdering Facility: [facility] Address: [address] [place] [address] Performed By: #### 5 0190-8, 2276-4 ####[facility] [id number] [place] [address] [place] Iron/TIBC [Molar ratio] 4.5 % Low 15.0-57.0 C [facility] Comment on above: Order Comment: Speci men Type: BLOOD SPECIMENOrdering Facility: [facility] Address: [address] [place] [address] Performed By: #### 5 0190-8, 2276-4 ####[facility] [id number] [place] [address] [place] Reagin and Treponema pallidu m IgG and IgM [Interp]on 01-24-2025 T. pallidum IgG+IgM IA Ql (S) Non-Reactive Normal Nonreactive [facility] Comment on above: Order Comment: Speci men Type: BLOOD SPECIMENOrdering Facility: [facility] Address: [address] [place] [address] Performed By: #### 7 3752-8 ####[facility] [id number] [place] [address] [place] Reagin+T pallidum IgG+IgM Se rPl-Impon 01-24-2025 Reagin and Treponema pallidum IgG and IgM [Interp] Cannot exclude recent Treponemal infection if specimen collected within 7-10 days after appearance of suspect lesions or 2-3 weeks after an exposure. Clinical correlation is required. Normal [facility] Comment on above: Order Comment: Speci men Type: BLOOD SPECIMENOrdering Facility: [facility] Address: [address] [place], [place] [address] [id number] Performed By: #### 7 3752-8 ####[facility] [id number] [facility]ENTERT[facility] [place] [id number] [place] CNPCarina 01-09-2025 CNPN Telephone (OBGYWM) RHONDA COHEN ([id number]) 1 F Date Time Provider Department 01/09/25 JASMIN ARCHER During your visit today, we recorded the following information about you: Negrita Colby RN 01/09/2025 12:08 PM Signed 26w3d Pt states the past week she's noticed increased swelling in her lower legs. States she's not drinking as much fluids as she should- she has noticed decreased in swelling when she drinks more. Has been sitting a lot and tucking feet a lot. Watching sodium intake. Pt also states she has had what feels like period cramps throughout . Advised Pt she should continue to drink plenty of fluids and advised her to try adding liquid IV to her drinks which includes the electrolytes and may help with the cramping, but it is likely that the cramping is just her uterus stretching to fit her growing baby. She is wanting to know if she should be concerned that baby is super active. Advised her that this is great and we want baby to be active. Advised her that we are concerned when baby is not active and instructed Pt on kick counts. Advised Pt to elevate legs when sitting. 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 Advised Pt it is safe as there is always a local hospital nearby and if she were to develop severe abdominal pain, LOF/vaginal bleeding, decreased movement to have her take her to ER. Pt voiced understanding. UMAIR Rojas Rebecca L, MD 01/09/2025 12:10 PM Signed noted and agree. Eduin Dominguez MD Allergies As of Date: 01/09/2025 Noted Allergy Reaction ATARAX (HYDROXYZINE) 06/30/2023 14 - Other: See Comments Comments: Patient has paradoxical effect, she is hyperalert and is up all night. ACETAMINOPHEN 05/27/2022 6 - Diarrhea CHLORHEXIDINE 06/29/2023 2 - Rash Comments: Rash/burning CIPROFLOXACIN 06/29/2023 14 - Other: See Comments Comments: Family history of the allergy CLINDAMYCIN 06/29/2023 10 - Anaphylaxis IBUPROFEN 05/27/2022 6 - Diarrhea LACTOSE 11/02/2021 6 - Diarrhea PEANUT BUTTER FLAVOR 04/29/2023 6 - Diarrhea 8 - GI Upset PENICILLINS 01/08/2019 14 - Other: See Comments Comments: 06/29/23: Extensive family history of multiple antibiotic allergies including penicillins. Report multiple family members having anaphylaxis reactions. RED DYE 07/05/2023 5 - Intolerance TRAMADOL 09/11/2023 14 - Other: See Comments Comments: Blurred vision ZITHROMAX (AZITHROMYCIN) 01/27/2024 6 - Diarrhea Date Reviewed: 12/28/2024 Reviewed by: Aleksander Hodges MA - Fully Assessed Reason for Visit: Patient Question [1477] Prescriptions as of 01/09/2025 - cyclobenzaprine (FLEXERIL) 5 mg tablet Take 1 tablet by mouth three times a day as needed. - aspirin, enteric coated (ECOTRIN LOW STRENGTH) 81 mg EC tablet Take 1 tablet by mouth once daily. - famotidine (PEPCID) 40 mg tablet Take 1 tablet by mouth once daily. - docusate sodium (COLACE) 100 mg capsule Take 1 capsule by mouth two times a day. - vit no.124/iron/folic ( VITAMIN ORAL) Take 2 Pieces by mouth once daily. 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] 01/22/2024 Encounter for supervision of normal i*09/16/2024 Irritable bowel syndrome with both constipation* 025 Small intestinal bacterial overgrowth (SIBO) [K*09/16/2024 Lactose intolerance [E73.9] 09/16/2024 24 weeks gestation of (HCC) [Z3A.24] 11/21/2024 Abdominal pain affecting [O26.899, R1*11/21/2024 Encounter Status:Closed by NEGRITA COLYB on 01/09/25 [facility] Tele[facility] (ANTOINETTEWASUYAPA) RHONDA COHEN ([id number]) 1 F Date Time Provider Department 12/06/24 SHANNAN VILLARREAL During your visit today, we recorded the following information about you: Deanna Sanz, UMAIR 12/06/2024 1:41 PM Signed Received ER summary from [facility], DOS 12/05/2024, chief complaint abdominal pain, right hydronephrosis on ultrasound. Patient was d/c home with oxycodone and ondansetron. Placed summary in Shannan Villarreal MD inbox for review. Allergies As of Date: 12/06/2024 Noted Allergy Reaction ATARAX (HYDROXYZINE) 06/30/2023 14 - Other: See Comments Comments: Patient has paradoxical effect, she is hyperalert and is up all night. ACETAMINOPHEN 05/27/2022 6 - Diarrhea CHLORHEXIDINE 06/29/2023 2 - Rash Comments: Rash/burning CIPROFLOXACIN 06/29/2023 14 - Other: See Comments Comments: Family history of the allergy CLINDAMYCIN 06/29/2023 10 - Anaphylaxis IBUPROFEN 05/27/2022 6 - Diarrhea LACTOSE 11/02/2021 6 - Diarrhea PEANUT BUTTER FLAVOR 04/29/2023 6 - Diarrhea 8 - GI Upset PENICILLINS 01/08/2019 14 - Other: See Comments Comments: 06/29/23: Extensive family history of multiple antibiotic allergies including penicillins. Report multiple family members having anaphylaxis reactions. RED DYE 07/05/2023 5 - Intolerance TRAMADOL 09/11/2023 14 - Other: See Comments Comments: Blurred vision ZITHROMAX (AZITHROMYCIN) 01/27/2024 6 - Diarrhea Date Reviewed: 12/05/2024 Reviewed by: Thomas Cohen MA - Fully Assessed Reason for Visit: ED Follow-up [821] Cmt: [facility] Prescriptions as of 12/06/2024 - cyclobenzaprine (FLEXERIL) 5 mg tablet Take 1 tablet by mouth three times a day as needed. - aspirin, enteric coated (ECOTRIN LOW STRENGTH) 81 mg EC tablet Take 1 tablet by mouth once daily. - famotidine (PEPCID) 40 mg tablet Take 1 tablet by mouth once daily. - docusate sodium (COLACE) 100 mg capsule Take 1 capsule by mouth two times a day. - vit no.124/iron/folic ( VITAMIN ORAL) Take 2 Pieces by mouth once daily. 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] 01/22/2024 Encounter for supervision of normal i*09/16/2024 Irritable bowel syndrome with both constipation* 025 Small intestinal bacterial overgrowth (SIBO) [K*09/16/2024 Lactose intolerance [E73.9] 09/16/2024 19 weeks gestation of [Z3A.19] 11/21/2024 Abdominal pain affecting [O26.899, R1*11/21/2024 Encounter Status:Closed by DEANNA SANZ on 12/06/24 Normal [facility] Absolute neutrophil countOrd ered By: Jenaro Vigil on 12-05-2024 Neutrophils (Bld) [#/Vol] 9.2 10*3/uL High 2.0-7.7 [facility] Anion gap in Serum or Plasma Ordered By: Jenaro Vigil on 12-05-2024 Anion gap [Moles/Vol] 11 mmol/L 5-15 [facility] BUN/creatinine ratioOrdered By: Jenaro Vigil on 12-05-2024 Urea nitrogen/Creatinine [Mass ratio] 25.7 mg/mg High 10-20 [facility] Bacteria Ur Culton Bacteria identified Cx Nom (U) ORGANISM ID: 1 <10,000 CFU/ml Normal urogenital shine Normal [facility] Comment on above: Performed By: #### 6 30-4 ####[facility]CL[facility] [id number] [address] [place] Basic Metabolic Profile (BMP )on 12-05-2024 BUN/CRE 25.7 RATIO High 10-20 [facility] Comment on above: Performed By: #### L 100.0100, L500.2500 #### [facility] [address] [place], [address] Calcium [Mass/Vol] 8.7 mg/dL Normal 7.6-11.0 [facility] Comment on above: Performed By: #### L 100.0100, L500.2500 #### [facility] [address] [place], [address] Chloride [Moles/Vol] 107 mmol/L Normal 98-108 [facility] Comment on above: Performed By: #### L 100.0100, L500.2500 #### [facility] [address] [place], [address] CO2 [Moles/Vol] 17.9 mmol/L Low 21.0-32.0 [facility] Comment on above: Performed By: #### L 100.0100, L500.2500 #### [facility] [address] [place], [address] Creatinine [Mass/Vol] 0.36 mg/dL Low 0.70-1.20 [facility] Comment on above: Performed By: #### L 100.0100, L500.2500 #### [facility] [address] [place], [address] ECRCL 234.28 ml/min Normal 50-250 [facility] Comment on above: Performed By: #### L 100.0100, L500.2500 #### [facility] [address] [place], [address] GAP 11 Normal 5-15 [facility] Comment on above: Performed By: #### L 100.0100, L500.2500 #### [facility] [address] [place], [address] GFR/1.73 sq M.predicted among non-blacks MDRD (S/P/Bld) [Vol rate/Area] 148 mL/min/{1.73_m2} Normal >60 [facility] Comment on above: Result Comment: mL/m in/1.73m2 CKD-EPI Creatinine Equation (2020) Performed By: #### L 100.0100, L500.2500 #### [facility] [address] [place], [address] Glucose [Mass/Vol] 79 mg/dL Normal 70-99 [facility] Comment on above: Performed By: #### L 100.0100, L500.2500 #### [facility] [address] [place], [address] Potassium [Moles/Vol] 3.7 mmol/L Normal 3.3-5.1 [facility] Comment on above: Performed By: #### L 100.0100, L500.2500 #### [facility] [address] [place], [address] Sodium [Moles/Vol] 135 mmol/L Normal 133-145 [facility] Comment on above: Performed By: #### L 100.0100, L500.2500 #### [facility] [address] [place], [address] Urea nitrogen [Mass/Vol] 9 mg/dL Normal 4-19 [facility] Comment on above: Performed By: #### L 100.0100, L500.2500 #### [facility] [address] [place], [address] Basophil percentageOrdered B y: Jenaro Musa on 12-05-2024 Basophils/100 WBC (Bld) 0.4 % 0-1 [facility] CBC W/Diff, Automatedon -3 Absolute Lymph 1.74 X10 3/uL Normal 0.83-4.51 [facility] Comment on above: Performed By: #### L 100.0100, L500.2500 #### [facility] [address] [place], [address] Absolute Neut 9.2 X10 3/uL High 2.0-7.7 [facility] Comment on above: Performed By: #### L 100.0100, L500.2500 #### [facility] [address] [place], [address] Basophils/100 WBC (Bld) 0.4 % Normal 0-1 [facility] Comment on above: Performed By: #### L 100.0100, L500.2500 #### [facility] [address] [place], [address] Eosinophils/100 WBC (Bld) 0.7 % Normal 0-5 [facility] Comment on above: Performed By: #### L 100.0100, L500.2500 #### [facility] [address] [place], [address] Erythrocyte distribution width (RBC) [Ratio] 13.8 % Normal 11.6-14.6 [facility] Comment on above: Performed By: #### L 100.0100, L500.2500 #### [facility] [address] [place], [address] Hematocrit (Bld) [Volume fraction] 29.7 % Low 37-47 [facility] Comment on above: Performed By: #### L 100.0100, L500.2500 #### [facility] [address] [place], [address] Hemoglobin (Bld) [Mass/Vol] 10.0 g/dL Low 12.0-15.0 [facility] Comment on above: Performed By: #### L 100.0100, L500.2500 #### [facility] [address] [place], [address] IG% 1.200 High 0.0-0.9 [facility] Comment on above: Result Comment: IG% - Immature Granulocytes (promyelocytes, myelocytes and metamyelocytes) > 1% indicates that a LEFT SHIFT is Present. Performed By: #### L 100.0100, L500.2500 #### [facility] [address] [place], [address] Lymphocytes/100 WBC (Bld) 14.4 % Low 19-41 [facility] Comment on above: Performed By: #### L 100.0100, L500.2500 #### [facility] [address] [place], [address] MCH (RBC) [Entitic mass] 28.3 pg Normal 27.0-32.0 [facility] Comment on above: Performed By: #### L 100.0100, L500.2500 #### [facility] [address] [place], [address] MCHC (RBC) [Mass/Vol] 33.7 g/dL Normal 32-36 [facility] Comment on above: Performed By: #### L 100.0100, L500.2500 #### [facility] [address] [place], [address] MCV (RBC) [Entitic vol] 84.1 fL Normal 81-99 [facility] Comment on above: Performed By: #### L 100.0100, L500.2500 #### [facility] [address] [place], [address] Monocytes/100 WBC (Bld) 7.8 % Normal 0-10 [facility] Comment on above: Performed By: #### L 100.0100, L500.2500 #### [facility] [address] [place], [address] Neutrophils/100 WBC (Bld) 75.5 % High 47-70 [facility] Comment on above: Performed By: #### L 100.0100, L500.2500 #### [facility] [address] [place], [address] Nucleated RBC (Bld) [#/Vol] 0 10*3/uL Normal 0-5 [facility] Comment on above: Performed By: #### L 100.0100, L500.2500 #### [facility] [address] [place], [address] Platelet mean volume (Bld) [Entitic vol] 10.4 fL Normal 6.2-12.0 [facility] Comment on above: Performed By: #### L 100.0100, L500.2500 #### [facility] [address] [place], [address] Platelets (Bld) [#/Vol] 241 10*3/uL Normal 150-450 [facility] Comment on above: Performed By: #### L 100.0100, L500.2500 #### [facility] [address] [place], [address] RBC (Bld) [#/Vol] 3.53 10*6/uL Low 4.2-5.4 [facility] Comment on above: Performed By: #### L 100.0100, L500.2500 #### [facility] [address] [place], [address] RDW SD 41.8 fl Normal 35.1-43.9 [facility] Comment on above: Performed By: #### L 100.0100, L500.2500 #### [facility] [address] [place], [address] WBC (Bld) [#/Vol] 12.1 10*3/uL High 4.4-11.0 [facility] Comment on above: Performed By: #### L 100.0100, L500.2500 #### [facility] [address] [place], [address] Carbon dioxide, total [Moles /volume] in Central venous bloodOrdered By: Jenaro Vigil on 12-05-2024 CO2 [Moles/Vol] 17.9 mmol/L Low 21.0-32.0 [facility] Chloride assayOrdered By: Estefani Vigil on 12-05-2024 Chloride [Moles/Vol] 107 mmol/L 98-108 [facility] Emergency Department Summary on 12-05-2024 Emergency Department Summary [facility] Medical Records Department [address] [place] [address] Emergency Department Summary 12/05/24 MR#: [id number] Acct: [id number] Name: RHONDA COHEN Rep #: [id number] : 2005 19 From: Jenaro Vigil MD PCP: Dr. Ezekiel Villarreal MD Status:REG ER Location: ED HPI HPI - GI History of Present Illness Chief Complaint: Abd Pain Informant: patient and PCP Narrative Narrative: Healthy 19-year-old female 21 weeks and 3 days states she was awakened in the middle of the night 3 AM this past night with pain in her right flank and nausea no vomiting. No vaginal bleeding. No problems urinating. Never had this pain before. Seen in the office and examined, tender throughout the right abdomen without guarding or rebound and referred here to the ER for ultrasound possible kidney stone, possible appendicitis. Patient never had either [address] Gibson, urine was positive for blood and otherwise negative in the office they sent for culture. [facility] Medical History Anxiety Home Medications ???Medication ???Instructions ???Recorded ???Last Taken ???Type aspirin 81 mg capsule 81 mg PO DAILY 12/05/24 Unknown Hi story cyclobenzaprine 5 mg tablet 5 mg PO TID PRN PRN muscle spasms 12/05/24 Unknown History docusate sodium 100 mg capsule 100 mg PO BID 12/05/24 Unknown His tory famotidine 40 mg tablet 40 mg PO DAILY 12/05/24 Unknown Hi story metoclopramide HCl 10 mg tablet 10 mg PO TID PRN PRN nausea and Unknown History vomiting ondansetron 4 mg disintegrating 4 mg PO Q8H PRN PRN Nausea #10 tab s 12/05/24 Unknown Rx tablet oxycodone 5 mg tablet 5 mg PO Q6H PRN pain 3 days #12 Unknown Rx tabs Allergy/AdvReac Type Severity Reaction Status Date / Time acetaminophen (From Tylenol) AdvReac Abd Verified 05/27/22 11:03 cramps/diarrhea ibuprofen AdvReac Abd Verified 05/27/22 11:03 cramps/diarrhea Penicillins AdvReac Anaphylaxis Verified 05/27/22 11:02 Surgical History H/O colonoscopy H/O endoscopy Social History Smoking Status: Never smoker substance use type: does not use ROS ROS ED Constitutional Constitutional ED: Denies chills or fever(s) Eyes Eyes: Denies change in vision or diplopia ENT ENT ED: Denies rhinorrhea or sore throat Cardiovascular Cardiovascular: Denies chest pain or palpitations Respiratory/Chest Respiratory/Chest: Denies cough or dyspnea Gastrointestinal Gastrointestinal: Reports abdominal pain; Denies diarrhea, nausea or vomiting Genitourinary Genitourinary ED: Reports flank pain; Denies dysuria or hematuria Musculoskeletal Musculoskeletal: Reports back pain; Denies neck pain Integumentary Denies abscess or rash Neurologic Neurologic: Denies headache(s), paresthesias or weakness Psychiatric Psychiatric: Denies anxiety or suicidal thoughts EXAM Physical Exam Const Vital Signs: 12/05/24 10:32 12/05/24 12:32 12/05/24 14:00 Temperature 98.1 F Temperature Source Temporal Pulse Rate 106 H 106 H 100 Respiratory Rate 18 20 H 20 H Blood Pressure 86/70 L 115/62 Blood Pressure Mean 75 79 Pulse Ox 99 99 100 Oxygen Delivery Method Room Air Room Air Room Air Positive well nourished and well developed Constitutional Narrative: Appears uncomfortable but in no distress General Appearance ED: well developed and NAD HEENT Reports moist mucous membranes normocephalic and atraumatic Eyes PERRL and EOMs intact bilaterally Neck full ROM and supple Resp normal respiratory effort and clear to auscultation bilaterally Cardio regular rate, regular rhythm and no murmurs GI non-distended GI Narrative: Tender throughout the right side of the abdomen. No guarding or rebound tenderness. Negative Rovsing, negative obturator, positive psoas. Distended to about the umbilicus consistent with second trimester , this area is nontender. Auscultation: normoactive bowel sounds Palpation: soft Back/Spine Back/Spine Narrative: Mild right CVA tenderness not severe. Normal inspection. General Back: other FROM Extremity normal to inspection General Extremety ED: Negative for edema, pulses abnormal or tenderness General Extremity: Negative for edema or pulses abnormal Neuro oriented x3, CN's II-XII intact bilaterally and no sensory deficits noted Sensorium / Orientation: awake and alert Motor Exam: strength 5/5 throughout Skin no rashes or lesions noted and no wounds MDM MDM MDM Narrative Medical decision making narrative: Severe pain that wakes her up in the middle the night is more consistent with re (more content not included)... Normal [facility] Eosinophil percentageOrdered By: Jenaro Vigil on 12-05-2024 Eosinophils/100 WBC (Bld) 0.7 % 0-5 [facility] Erythrocyte distribution wid th ratioOrdered By: Jenaro Vigil on 12-05-2024 Erythrocyte distribution width (RBC) [Ratio] 13.8 % 11.6-14.6 [facility] Erythrocyte distribution wid th standard deviationOrdered By: Jenaro Vigil on 12-05-2024 Erythrocyte distribution width (RBC) [Entitic vol] 41.8 fL 35.1-43.9 [facility] Estimation of creatinine brittney aranceOrdered By: Jenaro Vigil on 12-05-2024 Estimated Creatinine Clearance Calc 234.28 ml/min 50-250 [facility] GFR/1.73 sq M.predicted dmitri g non-blacks MDRD (S/P/Bld) [Vol rate/Area]Ordered By: Jenaro Vigil on 12-05-2024 Estimated GFR (MDRD) Non-Af Amer 148 >60 [facility] Comment on above: mL/min/1.73m2 CKD-EP I Creatinine Equation (2020) Hematocrit Auto (Bld) [Volum e fraction]Ordered By: Jenaro Vigil on 12-05-2024 Hematocrit (Bld) [Volume fraction] 29.7 % Low 37-47 [facility] Hemoglobin measurementOrdere d By: Jenaro Vigil on 12-05-2024 Hemoglobin (Bld) [Mass/Vol] 10.0 g/dL Low 12.0-15.0 [facility] Immature granulocytes/100 WB C Auto (Bld)Ordered By: Jenaro Vigil on 12-05-2024 Immature granulocytes/100 WBC (Bld) 1.200 % High 0.0-0.9 [facility] Comment on above: IG% - Immature Granu locytes (promyelocytes, myelocytes and metamyelocytes) > 1% indicates that a LEFT SHIFT is Present. Kidney and Bladderon 025 Kidney and Bladder [facility] Imaging Services [address] [place] [address] Kidney and Bladder MR#: [id number] Acct: [id number] Name: RHONDA COHEN Rep #: [id number] : 2005 F 19 From: Pino gallardo MD PCP: Dr. Ezekiel Villarreal MD Status: [facility] ER Study: Kidney and Bladder Date of Exam: 12/05/24 Exam# [id number] Ordering Dr: Jenaro Vigil MD PROCEDURE: KIDNEY AND BLADDER 12/05/2024 REASON FOR EXAM: R FLANK PAIN, TECHNIQUE: Bilateral renal ultrasound. COMPARISON: Comparison is made with prior CT scan of the abdomen and pelvis dated May 27, 2022. FINDINGS: Kidneys: Normal renal sizes, parenchymal thicknesses, and echotextures. [place]: Moderate right hydronephrosis. Cysts or Masses: No cysts or large solid renal masses. RIGHT Kidney Size: 11.6 cm x 5.3 cm x 6.1 cm Volume: 194 mL Cortical Thickness (if discernible): 1.2 cm (>6mm is normal) LEFT Kidney Size: 10.3 cm x 4.8 cm x 4.9 cm Volume: 126 mL Cortical Thickness (if discernible): 1 cm (>6mm is normal) The urinary bladder is visualized and is unremarkable. US/Kidney and Bladder IMPRESSION: Moderate degree of right hydronephrosis. Reading Location: [place] [address] CC: Dr. Jenaro Vigil MD; Dr. Ezekiel Villarreal MD Pet Sitter: Signed Normal [facility] Lymphocytes Auto (Unsp spec) [#/Vol]Ordered By: Jenaro Vigil on 12-05-2024 Lymphocytes (Bld) [#/Vol] 1.74 10*3/uL 0.83-4.51 [facility] Lymphocytes/100 WBC Auto (Un sp spec)Ordered By: Jenaro Vigil on 12-05-2024 Lymphocytes/100 WBC (Bld) 14.4 % Low 19-41 [facility] MCV (mean corpuscular volume ) determinationOrdered By: Jenaro Vigil on 12-05-2024 MCV (RBC) [Entitic vol] 84.1 fL 81-99 [facility] Mean corpuscular hemoglobin (MCH) determinationOrdered By: Jenaro Vigil on 12-05-2024 MCH (RBC) [Entitic mass] 28.3 pg 27.0-32.0 [facility] Mean corpuscular hemoglobin concentration (MCHC) determinationOrdered By: Jenaro Vigil on 12-05-2024 MCHC (RBC) [Mass/Vol] 33.7 g/dL 32-36 [facility] Mean platelet volume determi nationOrdered By: Jenaro Vigil on 12-05-2024 Platelet mean volume (Bld) [Entitic vol] 10.4 fL 6.2-12.0 [facility] Monocyte percentageOrdered B y: Jenaro Vigil on 12-05-2024 Monocytes/100 WBC (Bld) 7.8 % 0-10 [facility] Neutrophil percentageOrdered By: Jenaro Vigil on 12-05-2024 Neutrophils/100 WBC (Bld) 75.5 % High 47-70 [facility] Nucleated red blood cell per centageOrdered By: Jenaro Vigil on 12-05-2024 Nucleated RBC/100 WBC (Bld) [Ratio] 0 % 0-5 [facility] Platelet countOrdered By: Estefani Vigil on 12-05-2024 Platelets (Bld) [#/Vol] 241 10*3/uL 150-450 [facility] Potassium (Unsp spec) [Mass/ Vol]Ordered By: Jenaro Vigil on 12-05-2024 Potassium [Moles/Vol] 3.7 mmol/L 3.3-5.1 [facility] RBC Auto (Bld) [#/Vol]Ordere d By: Jenaro Vigil on 12-05-2024 RBC (Bld) [#/Vol] 3.53 10*6/uL Low 4.2-5.4 [facility] Serum creatinine measurement (mass/volume)Ordered By: Jenaro Vigil on 12-05-2024 Creatinine [Mass/Vol] 0.36 mg/dL Low 0.70-1.20 [facility] Serum glucose measurement (m ass/volume)Ordered By: Jenaro Vigil on 12-05-2024 Glucose [Mass/Vol] 79 mg/dL 70-99 [facility] Serum or plasma calcium alphonso urement (mass/volume)Ordered By: Jenaro Vigil on 12-05-2024 Calcium [Mass/Vol] 8.7 mg/dL 7.6-11.0 [facility] Serum or plasma urea nitroge n measurement (mass/volume)Ordered By: Jenaro Vigil on 12-05-2024 Urea nitrogen [Mass/Vol] 9 mg/dL 4-19 [facility] Sodium levelOrdered By: Rod Vigil on 12-05-2024 Sodium [Moles/Vol] 135 mmol/L 133-145 [facility] UA DIP, URINE (POC)on 2024 BILIRUBIN UA (POCT) Negative Negative [facility] CLARITY UA (POCT) Clear [facility] COLOR UA (POCT) Yellow [facility] GLUCOSE UA (POCT) Negative Negative mg/dL [facility] Hemoglobin Ql (U) Trace-intact Abnormal Negative [facility] Interpretation and review of laboratory results Abnormal [facility] KETONE UA (POCT) Negative Negative mg/dL [facility] LEUKOCYTES UA (POCT) Negative Negative [facility] NITRITE UA (POCT) Negative Negative [facility] PH UA (POCT) 7 4.5 - 8.0 [facility] Protein Ql (U) Negative Negative mg/dL [facility] SPECIFIC GRAVITY UA (POCT) 1.02 1.005 - 1.030 [facility] UROBILINOGEN UA (POCT) 0.2 Normal E.U./d L [facility] Location:[facility], [address], [place], [address] [facility] POINT OF CARE [facility] White blood cell (WBC) count Ordered By: Jenaro Vigil on 12-05-2024 WBC (Bld) [#/Vol] 12.1 10*3/uL High 4.4-11.0 [facility] [facility] Examination level ultrasound on 11-29-2024 Indication Standard anatomic survey Impression REMOTE READ The patient is referred for a standard anatomic survey. - Single, live, intrauterine . - biometry is consistent with the established gestational age. - No malformations were visualized on a complete standard anatomic survey. - The amniotic fluid volume is normal amount. - The placenta is anterior, fundal. - The Transabdominal cervical length measures 33.1 mm with no evidence of funneling or other dynamic changes. - Not all structural malformations can be detected by ultrasound examination. Recommendations Additional follow-up as clinically indicated. Maternal Assessment Height 163 cm Height (ft) 5 ft Height (in) 4 in Physical Exam Initial weight (lb) 141 lb Initial BMI 24.20 kg/m Maternal assessment other: 1 Para 0 Method Transabdominal ultrasound examination. View: Adequate visualization [place] . Number of fetuses: 1 Dating LMP on: 07/08/2024 Cycle: LMP date uncertain GA by LMP 20 w + 3 d FELIPE by LMP: 04/14/2025 GA by prior assessment 20 w + 3 d FELIPE by prior assessment: 04/14/2025 Ultrasound examination on: 11/28/2024 GA by U/S based upon: AC, BPD, Femur, HC GA by U/S 20 w + 4 d FELIPE by U/S: 04/13/2025 Assigned: based on stated FELIPE, selected on 11/28/2024 Assigned GA 20 w + 3 d Assigned FELIPE: 04/14/2025 General Evaluation Cardiac activity present. FHR 157 bpm. movements: present. Presentation: cephalic Placenta: Placental site: anterior, fundal Umbilical cord: Cord vessels: 3 vessel cord Amniotic fluid: Amount of AF: normal amount. MVP 5.5 cm Growth Overview Exam date GA BPD (mm) HC (mm) AC (mm) FL (mm) HL (mm) EFW (g) 11/28/2024 20w 3d 48 53% 175.4 38% 158.3 62% 33.1 62% 32.9 75% 362 52% Biometry Standard BPD 48.0 mm 20w 4d 53% Hadlock OFD 60.9 mm 19w 5d 35% Nicolaides HC 175.4 mm 20w 0d 38% [place] Cerebellum tr 21.1 mm 20w 0d 56% Hill Nuchal fold 3.8 mm AC 158.3 mm 21w 0d 62% Hadlock Femur 33.1 mm 20w 4d 62% [place] Humerus 32.9 mm 21w 1d 75% Charlotte EFW 362 g 20w 3d 52% Hadlock EFW (lb) 0 lb EFW (oz) 13 oz EFW by: Hadlock (HC-AC-FL) Extended Print Room Worker 7.6 mm CM 5.1 mm 49% Nicolaides Extremities / Bony Struc FL / HC 0.19 55% Hadlock Other Structures FHR 157 bpm Anatomy Cranium: normal Lateral ventricles: normal Choroid plexus: normal Midline falx: normal Cavum septi pellucidi: normal Cerebellum: normal Cisterna magna: normal Head / Neck Vermis: Normal but not required for a standard anatomy exam Neck: Normal but not required for a standard anatomy exam Nuchal fold: Normal but not required for a standard anatomy exam Lips: normal Profile: Normal but not required for a standard anatomy exam Nose: Normal but not required for a standard anatomy exam Face Maxilla: Suboptimally visualized but not required for a standard anatomy scan Mandible: Suboptimally visualized but not required for a standard anatomy scan Orbits: Normal but not required for a standard anatomy exam Lens: Normal but not required for a standard anatomy exam 4-chamber view: normal RVOT view: normal LVOT view: normal 3-vessel view: normal [id number] view: normal Heart / Thorax Situs: situs solitus (normal) Aortic arch view: Normal but not required for a standard anatomy exam SVC: Normal but not required for a standard anatomy exam IVC: Normal but not required for a standard anatomy exam Cardiac axis: normal Rt lung: Normal but not required for a standard anatomy exam Lt lung: Normal but not required for a standard anatomy exam Diaphragm: Normal but not required for a standard anatomy exam Cord insertion: normal Stomach: normal Kidneys: normal Bladder: normal Genitals: normal Abdomen Abdom. wall: normal Cervical spine: normal Thoracic spine: normal Lumbar spine: normal Sacral spine: normal Arms: normal Legs: normal Rt upper arm: normal Rt forearm: normal Rt hand: normal Rt fingers: normal Lt upper arm: normal Lt forearm: normal Lt hand: normal Lt fingers: normal Rt upper leg: normal Rt lower leg: normal Rt foot: normal Lt upper leg: normal Lt lower leg: normal Lt foot: normal sex: female Wants to know sex: yes Maternal Structures Uterus / Cervix Uterus: Visualized Cervix: Visualized Approach: Transabdominal Cervical length 33.1 mm Other: Patient declined transvaginal ultrasound for cervical length. Ovaries / Tubes / Adnexa Rt ovary: Not visualized Lt ovary: Visualized Performed By: Nano Whelan RDMS, RVT Read By: Myra Renteria M.D. MATERNAL MEDICINE [facility] Bacteria Ur Culton 5 Bacteria identified Cx Nom (U) ORGANISM ID: 1 10,000 -<50,000 CFU/ml Normal urogenital shine Normal [facility] Comment on above: Performed By: #### 6 30-4 ####[facility] LABCLIA [id number] [address] Examination level ultrasound on 11-28-2024 Radiology Study observation (narrative) [facility] UA DIP, URINE (POC)on 2024 BILIRUBIN UA (POCT) Negative Negative [facility] CLARITY UA (POCT) Clear [facility] COLOR UA (POCT) Yellow [facility] GLUCOSE UA (POCT) Negative Negative mg/dL [facility] Hemoglobin Ql (U) Negative Negative [facility] KETONE UA (POCT) Negative Negative mg/dL [facility] LEUKOCYTES UA (POCT) Negative Negative [facility] NITRITE UA (POCT) Negative Negative [facility] PH UA (POCT) 6.5 4.5 - 8.0 [facility] Protein Ql (U) Negative Negative mg/dL [facility] SPECIFIC GRAVITY UA (POCT) 1.02 1.005 - 1.030 [facility] UROBILINOGEN UA (POCT) 0.2 Normal E.U./d L [facility] Location:[facility], [address], [place], [address] [facility] POINT OF CARE [facility] BACTERIAL VAGINOSIS NAATon 0 10-28-2024 Lactobacillus crispatus+gasseri+jense jona + Gardnerella vaginalis + Atopobium vaginae rRNA FAVIOLA+probe Ql (Vag fld) Not detected Normal Not detected [facility] Comment on above: Order Comment: Speci men Type: SWABOrdering Facility: [facility] Address: [address] [place] [address] Performed By: #### C VTV, BVAMP ####[facility] LABCLIA [id number] [place] [address] [place] Bacteria Ur Culton 5 Bacteria identified Cx Nom (U) ORGANISM ID: 1 <10,000 CFU/ml Normal urogenital shine Normal [facility] Comment on above: Performed By: #### 6 30-4 ####[facility] LABCLIA [id number] [place] [address] [place] KANG/TRICHOMONAS NAATon 0 10-28-2024 C. glabrata RNA FAVIOLA+probe Ql (Vag fld) Not detected Normal Not detected [facility] Comment on above: Order Comment: Speci men Type: SWABOrdering Facility: [facility] Address: [address] [place] [address] Performed By: #### C VTV, BVAMP ####[facility] LABCLIA [id number] [place] [address] [place] Kang sp DNA FAVIOLA+probe Ql (Vag fld) Not detected Normal Not detected [facility] Comment on above: Order Comment: Speci men Type: SWABOrdering Facility: [facility] Address: [address] [place] [address] Result Comment: The Kang species group target includes C. albicans, C. tropicalis, C. parapsilosis, and C. dubliniensis. Performed By: #### C VTV, BVAMP ####[facility] LABCLIA [id number] [place] [address] [place] T. vaginalis DNA FAVIOLA+probe Ql (Unsp spec) Not detected Normal Not detected [facility] Comment on above: Order Comment: Speci men Type: SWABOrdering Facility: [facility] Address: [address] [place] [address] Performed By: #### C VTV, BVAMP ####[facility] LABCLIA [id number] [place] [address] [place] UA DIP, URINE (POC)on 2024 BILIRUBIN UA (POCT) Negative Negative [facility] CLARITY UA (POCT) Clear [facility] COLOR UA (POCT) Yellow [facility] GLUCOSE UA (POCT) Negative Negative mg/dL [facility] Hemoglobin Ql (U) Negative Negative [facility] Interpretation and review of laboratory results Abnormal [facility] KETONE UA (POCT) 15 mg/dL Abnormal Negative [facility] LEUKOCYTES UA (POCT) Negative Negative [facility] NITRITE UA (POCT) Negative Negative [facility] PH UA (POCT) 7 4.5 - 8.0 [facility] Protein Ql (U) Negative Negative mg/dL [facility] SPECIFIC GRAVITY UA (POCT) >=1.030 1.005 - 1.030 [facility] UROBILINOGEN UA (POCT) 0.2 Normal E.U./d L [facility] Location:[facility], [address], [place], [place], [id number] [place] [address] POINT OF CARE [facility] Bacteria Ur Culton 5 Bacteria identified Cx Nom (U) CULTURE, URINE: Normal urogenital shine: ORGANISM ID: 1 >=100,000 CFU/ml Lactobacillus species No further workup Normal [facility] Comment on above: Performed By: #### 6 30-4 ####[facility] LABCLIA [id number] [place] [address] [place] CNOVon 10-07-2024 CNOV Office Visit (PIPPA) RHONDA COHEN ([id number]) 1 F Date Time Provider Department 10/07/24 8:30 AM YANCI LEWIS During your visit today, we recorded the following information about you: Pulse Respiration Blood pressure Weight 105/minute 16/minute 96/57 60.7 kg Yanci Lewis APRN.BOOKING SUPERVISOR 10/07/2024 8:59 AM Signed This note was created using Begunriter. Subjective Rhonda Cohen is a 19 year old female. HPI by patient: Rhonda Cohen is a 19 year old presenting to the office with the complaint of uti symptoms. Started approximately 1 week ago. Associated symptoms include pain after urination and frequency. Is 13 weeks . Having round ligament pain. Denies fever, chills, and vaginal symptoms. OTC not used. No antibiotic use in the last 60 days. ALLERGIES Atarax [Hydroxyzine] Other: See Comments Comment:Patient has paradoxical effect, she is hyperalert and is up all night. Acetaminophen Diarrhea Chlorhexidine Rash Comment:Rash/burning Ciprofloxacin Other: See Comments Comment:Family history of the allergy Clindamycin Anaphylaxis Ibuprofen Diarrhea Lactose Diarrhea Peanut Butter Flavor Diarrhea, GI Upset Penicillins Other: See Comments Comment:06/29/23: Extensive family history of multiple antibiotic allergies including penicillins. Report multiple family members having anaphylaxis reactions. Red Dye Intolerance Tramadol Other: See Comments Comment:Blurred vision Zithromax [Azithrom* Diarrhea Family History Reviewed Including Cardiac Diseases, Psychiatric Diseases, AND Substance Abuse Problem: Fibromyalgia Relation: Mother Age of Onset: (Not Specified) Problem: Cervical Cancer Relation: Mother Age of Onset: (Not Specified) Problem: other (diverticulitis) Relation: Mother Age of Onset: (Not Specified) Problem: Kidney Disease Relation: Father Age of Onset: (Not Specified) Problem: other (Gastroparesis) Relation: Sister Age of Onset: (Not Specified) Problem: Kidney stones Relation: Brother Age of Onset: (Not Specified) Problem: No Known Problems Relation: Brother Age of Onset: (Not Specified) Problem: No Known Problems Relation: Brother Age of Onset: (Not Specified) Problem: Bipolar disorder Relation: Maternal Grandmother Age of Onset: (Not Specified) Problem: other (endometriosis) Relation: Maternal Grandmother Age of Onset: (Not Specified) Problem: Heart Attack Relation: Maternal Grandfather Age of Onset: (Not Specified) Problem: other (MSA-muscle system atrophy) Relation: Maternal Grandfather Age of Onset: (Not Specified) Problem: Neuropathy Relation: Paternal Grandmother Age of Onset: (Not Specified) Problem: Fibromyalgia Relation: Paternal Grandmother Age of Onset: (Not Specified) Problem: Depression Relation: Paternal Grandmother Age of Onset: (Not Specified) Problem: Hypertension Relation: Paternal Grandmother Age of Onset: (Not Specified) Problem: Heart Attack Relation: Paternal Grandfather Age of Onset: (Not Specified) Comment: Several Problem: Diabetes Relation: Paternal Grandfather Age of Onset: (Not Specified) Comment: Type 2 Problem: Hypertension Relation: Paternal Grandfather Age of Onset: (Not Specified) Problem: Kidney stones Relation: Paternal Grandfather Age of Onset: (Not Specified) Problem: other (lupus) Relation: Maternal Aunt Age of Onset: (Not Specified) Problem: other (endometriosis) Relation: Maternal Aunt Age of Onset: (Not Specified) Social History Tobacco Use Smoking status: Never Passive exposure: Never Smokeless tobacco: Never Vaping Use Vaping status: Never Used Alcohol use: Never Drug use: Never Active Ambulatory Problems Nausea AND vomiting Date Noted: 10/31/2021 Diarrhea Date Noted: 10/31/2021 Abdominal pain Date Noted: 10/31/2021 Adjustment disorder Date Noted: 10/31/2021 Irregular menstrual cycle Date Noted: 05/01/2022 Depression Date Noted: 07/01/2023 Anxiety Date Noted: 07/01/2023 Chronic migraine w/o aura w/o status migrainosus, not intractable Date Noted: 01/22/2024 Regular astigmatism of both eyes Date Noted: 01/22/2024 Encounter for supervision of normal in first trimester Date Noted: 09/16/2024 Irritable bowel syndrome with both constipation and diarrhea Date Noted: 09/16/2024 Small intestinal bacterial overgrowth (SIBO) Date Noted: 09/16/2024 Lactose intolerance Date Noted: 09/16/2024 Resolved Ambulatory Problems Abdominal pain of unknown etiology Date Noted: 10/31/2021 Colitis Date Noted: 06/29/2023 High anion gap metabolic acidosis Date Noted: 07/04/2023 Ketosis (HCC) Date Noted: 07/04/2023 Past Medical History: No date: Anxiety and depression No date: History of IBS Review of Systems Constitutional: Negative. HENT: Negative. Eyes: Negative. Respir (more content not included)... Normal [facility] UA DIP, URINE (POC)on 2024 BILIRUBIN UA (POCT) Negative Negative [facility] CLARITY UA (POCT) Slightly Cloudy Cl [facility] COLOR UA (POCT) Dark yellow [facility] GLUCOSE UA (POCT) Negative Negative mg/dL [facility] Hemoglobin Ql (U) Negative Negative [facility] KETONE UA (POCT) Trace Negative mg/dL [facility] LE[facility] (POCT) Negative Negative [facility] NITRITE UA (POCT) Negative Negative [facility] PH UA (POCT) 5.5 4.5 - 8.0 [facility] Protein Ql (U) Negative Negative mg/dL [facility] SPECIFIC GRAVITY UA (POCT) 1.025 1.005 - 1.030 [facility] UROBILINOGEN UA (POCT) 0.2 Normal E.U./d L [facility] Location:[facility] Office, [address] [place] [address], [address] [place] [address] PO[facility] CARE [facility] [facility] W Auto Differential pane l (Bld)on 10-03-2024 Basophils (Bld) [#/Vol] 0.04 10*3/uL Normal <0.11 [facility] Comment on above: Order Comment: Speci men Type: BLOOD SPECIMENOrdering Facility: [facility] Address: [address] [place] [address] Performed By: #### 5 7021-8 ####[facility] [id number] [place] [address] [place] Basophils/100 WBC (Bld) 0.4 % Normal C [facility] Comment on above: Order Comment: Speci men Type: BLOOD SPECIMENOrdering Facility: [facility] Address: [address] [place] [address] Performed By: #### 5 7021-8 ####[facility]ENTERLIA [id number] [place] [address] [place] Differential cell count method Nom (Bld) Auto Normal [facility] Comment on above: Order Comment: Speci men Type: BLOOD SPECIMENOrdering Facility: [facility] Address: [address] [place] [address] Performed By: #### 5 7021-8 ####[facility] [id number] [place] [address] [place] Eosinophils (Bld) [#/Vol] 0.11 10*3/uL Normal <0.46 [facility] Comment on above: Order Comment: Speci men Type: BLOOD SPECIMENOrdering Facility: [facility] Address: [address] [address] Performed By: #### 5 7021-8 ####[facility] [id number] [place] [address] [place] Eosinophils/100 WBC (Bld) 1.2 % Normal [facility] Comment on above: Order Comment: Speci men Type: BLOOD SPECIMENOrdering Facility: [facility] Address: [address] [address] Performed By: #### 5 7021-8 ####[facility]ERNCA [id number] [place] [address] [place] Erythrocyte distribution width (RBC) [Ratio] 14.1 % Normal 11.5-15.0 [facility] Comment on above: Order Comment: Speci men Type: BLOOD SPECIMENOrdering Facility: [facility] Address: [address] [place] [address] Performed By: #### 5 7021-8 ####[facility] MILLWNCLIA [id number] [place] [address] [place] Hematocrit (Bld) [Volume fraction] 35.0 % Low 36.0-46.0 [facility] Comment on above: Order Comment: Speci men Type: BLOOD SPECIMENOrdering Facility: [facility] Address: [address] [place] [address] Performed By: #### 5 7021-8 ####[facility]ENTERLIA [id number] [place] [address] [place] Hemoglobin (Bld) [Mass/Vol] 12.2 g/dL Normal 11.5-15.5 [facility] Comment on above: Order Comment: Speci men Type: BLOOD SPECIMENOrdering Facility: [facility] Address: [address] [place] [address] Performed By: #### 5 7021-8 ####[facility]ENTERLIA [id number] [place] [address] [place] Immature granulocytes (Bld) [#/Vol] 10*3/uL Normal <0.10 [facility] Comment on above: Order Comment: Speci men Type: BLOOD SPECIMENOrdering Facility: [facility] Address: [address] [place] [address] Performed By: #### 5 7021-8 ####[facility]ENTERLIA [id number] [place] [address] [place] Immature granulocytes/100 WBC (Bld) 0.2 % Normal [facility] Comment on above: Order Comment: Speci men Type: BLOOD SPECIMENOrdering Facility: [facility] Address: [address] [place] [address] Performed By: #### 5 7021-8 ####[facility]ENTERLIA [id number] [place] [address] [place] Lymphocytes (Bld) [#/Vol] 1.85 10*3/uL Normal 1.00-4.00 [facility] Comment on above: Order Comment: Speci men Type: BLOOD SPECIMENOrdering Facility: [facility] Address: [address] [place] [address] Performed By: #### 5 7021-8 ####[facility] [id number] [place] [address] [place] Lymphocytes/100 WBC (Bld) 20.5 % Normal [facility] Comment on above: Order Comment: Speci men Type: BLOOD SPECIMENOrdering Facility: [facility] Address: [address] [place] [address] Performed By: #### 5 7021-8 ####[facility] [id number] [place] [address] [place] MCH (RBC) [Entitic mass] 27.7 pg Normal 26.0-34.0 [facility] Comment on above: Order Comment: Speci men Type: BLOOD SPECIMENOrdering Facility: [facility] Address: [address] [place] [address] Performed By: #### 5 7021-8 ####[facility] [id number] [place] [address] [place] MCHC (RBC) [Mass/Vol] 34.9 g/dL Normal 30.5-36.0 [facility] Comment on above: Order Comment: Speci men Type: BLOOD SPECIMENOrdering Facility: [facility] Address: [address] [place] [address] Performed By: #### 5 7021-8 ####[facility]ENTERNCLI [id number] [place] [address] [place] MCV (RBC) [Entitic vol] 79.5 fL Low 80.0-100.0 C [facility] Comment on above: Order Comment: Speci men Type: BLOOD SPECIMENOrdering Facility: [facility] Address: [address] [place] [address] Performed By: #### 5 7021-8 ####[facility] [id number] [place] [address] [place] Monocytes (Bld) [#/Vol] 0.73 10*3/uL Normal <0.87 [facility] Comment on above: Order Comment: Speci men Type: BLOOD SPECIMENOrdering Facility: [facility] Address: [address] [place] [address] Performed By: #### 5 7021-8 ####[facility] [id number] [place] [address] [place] Monocytes/100 WBC (Bld) 8.1 % Normal C [facility] Comment on above: Order Comment: Speci men Type: BLOOD SPECIMENOrdering Facility: [facility] Address: [address] [place] [address] Performed By: #### 5 7021-8 ####[facility] [id number] [place] [address] [place] Neutrophils (Bld) [#/Vol] 6.28 10*3/uL Normal 1.45-7.50 [facility] Comment on above: Order Comment: Speci men Type: BLOOD SPECIMENOrdering Facility: [facility] Address: [address] [place] [address] Performed By: #### 5 7021-8 ####[facility] [id number] [place] [address] [place] Neutrophils/100 WBC (Bld) 69.6 % Normal [facility] Comment on above: Order Comment: Speci men Type: BLOOD SPECIMENOrdering Facility: [facility] Address: [address] [place] [address] Performed By: #### 5 7021-8 ####[facility]ENTERNCLIA [id number] [place] [address] [place] Nucleated RBC (Bld) [#/Vol] 10*3/uL Normal <0.01 [facility] Comment on above: Order Comment: Speci men Type: BLOOD SPECIMENOrdering Facility: [facility] Address: [address] [place] [address] Performed By: #### 5 7021-8 ####[facility] [id number] [place] [address] [place] Nucleated RBC/100 WBC (Bld) [Ratio] 0.0 /100 WBC Normal [facility] Comment on above: Order Comment: Speci men Type: BLOOD SPECIMENOrdering Facility: [facility] Address: [address] [place] [address] Performed By: #### 5 7021-8 ####[facility]ENTERNCLIA [id number] [place] [address] [place] Platelet mean volume (Bld) [Entitic vol] 10.3 fL Normal 9.0-12.7 [facility] Comment on above: Order Comment: Speci men Type: BLOOD SPECIMENOrdering Facility: [facility] Address: [address] [place] [address] Performed By: #### 5 7021-8 ####[facility]ENTERNCLIA [id number] [place] [address] [place] Platelets (Bld) [#/Vol] 264 10*3/uL Normal 150-400 [facility] Comment on above: Order Comment: Speci men Type: BLOOD SPECIMENOrdering Facility: [facility] Address: [address] [place] [address] Performed By: #### 5 7021-8 ####[facility]ENTERNCLI [id number] [place] [address] [place] RBC (Bld) [#/Vol] 4.40 10*6/uL Normal 3.90-5.20 [facility] Comment on above: Order Comment: Speci men Type: BLOOD SPECIMENOrdering Facility: [facility] Address: [address] [place] [address] Performed By: #### 5 7021-8 ####[facility] ANAIS FARIHALIA [id number] [place] [address] [place] WBC (Bld) [#/Vol] 9.03 10*3/uL Normal 3.70-11.00 [facility] Comment on above: Order Comment: Speci men Type: BLOOD SPECIMENOrdering Facility: [facility] Address: [address] [place] [address] Performed By: #### 5 7021-8 ####[facility] FARIHALIA [id number] [place] [address] [place] nuchal translucency me asured by USon 10-03-2024 Indication First trimester anatomic survey Impression REMOTE READ The patient is referred for a first trimester anatomy scan including nuchal translucency measurement as clinically indicated. - Single, live, intrauterine . - [place] rump length measurement is consistent with the established gestational age. - A qualitative screen of the nuchal translucency and other anatomic structures was unremarkable on an incomplete first trimester anatomic assessment. - Not all structural malformations can be detected by ultrasound examination. Maternal Structures: Right Ovary: Size 27 mm x 15 mm x 15 mm Left Ovary: Size 35 mm x 29 mm x 18 mm Recommendations Return for anatomy ultrasound Maternal Assessment Height 163 cm Height (ft) 5 ft Height (in) 4 in Physical Exam Initial weight (lb) 141 lb Initial BMI 24.20 kg/m Maternal assessment other: 1 Para 0 Method Transabdominal ultrasound examination. View: Suboptimal view: limited by position Corona . Number of fetuses: 1 Dating LMP on: 07/08/2024 Cycle: LMP date uncertain GA by LMP 12 w + 3 d FELIPE by LMP: 04/14/2025 GA by prior assessment 12 w + 3 d FELIPE by prior assessment: 04/14/2025 Ultrasound examination on: 10/03/2024 GA by U/S based upon: CRL GA by U/S 12 w + 3 d FELIPE by U/S: 04/14/2025 Assigned: based on stated FELIPE, selected on 10/03/2024 Assigned GA 12 w + 3 d Assigned FELIPE: 04/14/2025 General Evaluation Cardiac activity present Placenta: anterior Cord vessels: 3 vessel cord Amniotic fluid: normal amount Biometry Standard FHR 168 bpm CRL 58.6 mm 12w 3d 33% [place] First Trimester Anatomy Calvarium: normal Falx cerebri: normal Choroid plexus: normal Profile: suboptimal Nasal bone: normal Retronasal triangle: normal Maxilla: normal Mandible: normal Nuchal translucency: Unremarkable Situs: normal Cardiac position: normal Cardiac axis: normal 4-chamber view: suboptimal 4-chamber view with color: suboptimal [id number] view: suboptimal Abdominal cord insertion: normal Stomach: normal Kidneys: suboptimal Bladder: normal Color doppler of perivesical umbilical arteries: normal Vertebral alignment: suboptimal Arms: normal Hands: normal Legs: normal Feet: normal Maternal Structures Uterus / Cervix Uterus: Visualized Uterus length 98 mm Uterus width 112 mm Uterus height 86 mm Uterus Vol 496.1 cm Ovaries / Tubes / Adnexa Rt ovary: Visualized Rt ovary D1 27 mm Rt ovary D2 15 mm Rt ovary D3 15 mm Rt ovary Vol 3.3 cm Lt ovary: Visualized Lt ovary D1 35 mm Lt ovary D2 29 mm Lt ovary D3 18 mm Lt ovary Vol 9.2 cm Performed By: Nano Whelan RDMS, RVT Read By: Jackie Ca M.D. MATERNAL MEDICINE [facility] Radiology Study observation (narrative) [facility] HBV surface Ag Ser Qlon 09-08 HBV surface Ag Ql (S) Negative Normal Negative [facility] Comment on above: Order Comment: Speci men Type: BLOOD SPECIMENOrdering Facility: [facility] Address: [address] [place] [address] Performed By: #### 5 195-3, 50898-0, 97084-7 ####[facility] LABCLIA [id number] [place] [address] [place] HCV Ab Ser Qlon 10-03-2024 HCV Ab Ql (S) Negative Normal Negative [facility] Comment on above: Order Comment: Fahad castellanos Type: BLOOD SPECIMENOrdering Facility: [facility] Address: [address] [place] [address] Result Comment: The result suggests no evidence of active infection with Hepatitis C virus. Should recent infection be suspected, repeat testing may be considered 4-6 weeks after this draw. Performed By: #### 1 6128-1 ####[facility] LABCLIA [id number] [place] [address] [place] HGB ELECTROPHORESIS FOR EVAL (LAB ORDER)on 10-03-2024 Hemoglobin A (Bld) [Mass fraction] 97.4 % Normal 96.2-98.0 [facility] Comment on above: Order Comment: Kamarii emanuel Type: BLOOD SPECIMENOrdering Facility: [facility] Address: [address] [place] [address] Performed By: #### L [id number], HGBELEV ####[facility] LABCLIA [id number] [place] [address] [place] Hemoglobin A2 (Bld) [Mass fraction] 2.6 % Normal 2.0-3.1 [facility] Comment on above: Order Comment: Kamarii emanuel Type: BLOOD SPECIMENOrdering Facility: [facility] Address: [address] [place] [address] Performed By: #### L [id number], HGBELEV ####[facility] LABCLIA [id number] [place] [address] [place] Hemoglobin Unsp Elph (Bld) [Mass fraction] No abnormal hemoglobin identified. Normal No abnormal hemoglobin identified. [facility] Comment on above: Order Comment: Kamarii men Type: BLOOD SPECIMENOrdering Facility: [facility] Address: [address] [place] [address] Performed By: #### L [id number], HGBELEV ####[facility] LABCLIA [id number] [place] [id number] [place] HGB EVALUATION CASCADE INTER Derrek 10-03-2024 Hemoglobin pattern (Bld) [Interp] Reviewed by Lindsay Lacy MD Normal [facility] Comment on above: Order Comment: Speci men Type: BLOOD SPECIMENOrdering Facility: [facility] Address: [address] [place] [address] Performed By: #### L [id number], HGBELEV ####[facility] LABCLIA [id number] [place] [address] [place] INTERPRETATION (HGB EVAL) Normal [facility] Comment on above: Order Comment: Speci men Type: BLOOD SPECIMENOrdering Facility: [facility] Address: [address] [place] [address] Result Comment: Hemo globins were analyzed by capillary electrophoresis and CBC red cell parameters were reviewed. There is a normal capillary electrophoresis pattern with mild microcytosis. Ferritin testing was not performed. The possibility of alpha thalassemia trait cannot be excluded. Correlation with the clinical findings is suggested. If there is a clinical suspicion for thalassemia trait, PCR studies for the common alpha thalassemia gene deletions may be helpful in further evaluation. Performed By: #### L [id number], HGBELEV ####[facility] LABIA [id number] [place] [address] [place] HIV 1+2 Ab IA Qlon HIV 1 and 2 Ab IA.rapid Nom (S/P/Bld) Normal [facility] Comment on above: Order Comment: Speci men Type: BLOOD SPECIMENOrdering Facility: [facility] Address: [address] [place] [address] Result Comment: Test not indicated. Performed By: #### 5 195-3, 54145-6, 43658-1 ####[facility] LABCLIA [id number] [place] [address] [place] HIV 1+2 Ab+HIV1 p24 Ag IA Ql Non-Reactive Normal Nonreactive [facility] Comment on above: Order Comment: Speci men Type: BLOOD SPECIMENOrdering Facility: [facility] Address: [address] [place] [address] Performed By: #### 5 195-3, 30616-2, 80276-4 ####[facility] LABCLIA [id number] [address] [address] [place] HIV immunoassay testing algorithm interpretation (S/P/Bld) [Interp] Normal [facility] Comment on above: Order Comment: Speci men Type: BLOOD SPECIMENOrdering Facility: [facility] Address: [address] [place] [address] Result Comment: No e vidence of HIV-1 or HIV-2 infection. Should recent infection be suspected, repeat testing may be considered 2-3 weeks after this draw. [place] Rev. Code 3701.243(E): This information has been disclosed to you from confidential records protected from disclosure by state law. ???You shall make no further disclosure of this information without the specific, written, and informed release of the individual to whom it pertains or as otherwise permitted by state law. A general authorization for the release of medical or other information is not sufficient for the purpose of the release of HIV test results or diagnoses. Performed By: #### 5 195-3, 34412-5, 44482-8 ####[facility] LABIA [id number] [place] [address] [place] HbA1c (Bld)on 10-03-2024 Average glucose Estimated from glycated hemoglobin (Bld) [Mass/Vol] 82 mg/dL Normal [facility] Comment on above: Order Comment: Speci men Type: BLOOD SPECIMENOrdering Facility: [facility] Address: [address] [place] [address] Result Comment: eAG: (Estimated average glucose) is a calculated value from HgbA1c and is market survey representative of the average blood glucose level in the last 2-3 month period. Performed By: #### 5 5454-3 ####[facility] LABIA [id number] [place] [address] [place] HbA1c (Bld) [Mass fraction] 4.5 % Normal 4.3-5.6 [facility] Comment on above: Order Comment: Fahad castellanos Type: BLOOD SPECIMENOrdering Facility: [facility] Address: [address] [place] [address] Result Comment: Amer [place] Diabetes Association guidelines indicate that patients with HgbA1c in the range 5.7-6.4% are at increased risk for development of diabetes, and intervention by lifestyle modification may be beneficial. HgbA1c greater or equal to 6.5% is considered diagnostic of diabetes. Performed By: #### 5 5454-3 ####[facility] LABCLIA [id number] [place] [address] [place] [id number] PLUSon 10-03-2024 Cell-free DNA./Cell-free DNA.total Dosage of chromosome-specific cfDNA (cfDNA) [Molar fraction] 20% Normal [facility] Comment on above: Order Comment: Fahad castellanos Type: BLOOD SPECIMENOrdering Facility: [facility] Address: [address] [place] [address] Performed By: #### M AT21 ####[facility] LABCLIA [id number] [place] [address] Chr 13+18+21+X+Y aneuploidy Dosage of chromosome-specific cfDNA Ql (cfDNA) Negative Normal [facility] Comment on above: Order Comment: Fahad castellanos Type: BLOOD SPECIMENOrdering Facility: [facility] Address: [address] [place] [address] Performed By: #### M AT21 ####[facility] LABCLIA [id number] [place] [address] Chr 21 trisomy Dosage of chromosome-specific cfDNA Ql (cfDNA) Negative Normal [facility] Comment on above: Order Comment: Fahad castellanos Type: BLOOD SPECIMENOrdering Facility: [facility] Address: [address] [place] [address] Performed By: #### M AT21 ####[facility] LABCLIA [id number] [place] [address] Chr X and Y aneuploidy risk Sequencing Ql (cfDNA) [Interp] Not detected Normal [facility] Comment on above: Order Comment: Speci men Type: BLOOD SPECIMENOrdering Facility: [facility] Address: [address] [place] [address] Result Comment: Not Detected Not Detected Performed By: #### M AT21 ####[facility] LABCLIA [id number] [place] [address] Citation Darrell (Reference lab test) Comment Normal [facility] Comment on above: Order Comment: Speci men Type: BLOOD SPECIMENOrdering Facility: [facility] Address: [address] [place] [address] Result Comment: 1. P alla FUENTES et al. Soraida Med. 2012;14(3):296-305. 2. Zenon ASH, et al. Prenat Diag. 2013;33(6):591-597. 3. Rene C, et al. Clin Chem. 2015 Apr;61(4):608-616. 4. Rosa FUENTES, et al. Soraida Med. 2011;13(11):913-920. 5. ACOG/SMFM Practice Bulletin No. 226, Jun 2020. Performed By: #### M AT21 ####[facility] LABCLIA [id number] [place] [address] Gestational age Estimated from conception date Corona Normal [facility] Comment on above: Order Comment: Speci men Type: BLOOD SPECIMENOrdering Facility: [facility] Address: [address] [place] [address] Performed By: #### M AT21 ####[facility] LABCLIA [id number] [place] [address] GESTATIONALAGE AGE > OR = 9W Yes Normal [facility] Comment on above: Order Comment: Speci men Type: BLOOD SPECIMENOrdering Facility: [facility] Address: [address] [place] [address] Performed By: #### M AT21 ####[facility] LABCLIA [id number] [place] [address] Laboratory comment Darrell (Report) Comment Normal [facility] Comment on above: Order Comment: Fahad castellanos Type: BLOOD SPECIMENOrdering Facility: [facility] Address: [address] [place] [address] Result Comment: The MaterniT(R) 21 PLUS laboratory-developed test (LDT) analyzes circulating cell-free DNA from a maternal blood sample. This test is used for screening purposes and not diagnostic. Clinical correlation is recommended. Validation data on twin pregnancies is limited and the ability of this test to detect aneuploidy in higher multiple gestations has not yet been validated. Performed By: #### M AT21 ####[facility] SolarIA [id number] [place] [id number] community life director name Nom (Provider) Comment Normal [facility] Comment on above: Order Comment: Fahad castellanos Type: BLOOD SPECIMENOrdering Facility: [facility] Address: [address] [place] [address] Result Comment: This specimen showed an expected representation of chromosome 21, 18 and 13 material. Clinical correlation is suggested. Comment Channing Herbert MD, PhD, Director, [employer] Performed By: #### M AT21 ####[employer]RP GenArtsIA [id number] [place] [id number] LIMITATIONS OF THE TEST Comment Normal [facility] Comment on above: Order Comment: Fahad castellanos Type: BLOOD SPECIMENOrdering Facility: [facility] Address: [address] [place] [address] Result Comment: Whil e the results of these tests are highly reliable, discordant results, including inaccurate sex prediction, may occur due to placental, maternal, or mosaicism or neoplasm; vanishing twin; prior maternal organ transplant; or other causes. These tests are screening tests and not diagnostic; they do not replace the accuracy and precision of diagnosis with CVS or amniocentesis. A patient with a positive test result should be referred for genetic counseling and offered invasive diagnosis for confirmation of test results.[5] The results of this testing, including the benefits and limitations, should be discussed with a qualified healthcare provider. management decisions, including termination of the , should not be based on the results of these tests alone. The healthcare provider is responsible for the use of this information in the management of their patient. Sex chromosomal aneuploidies are not reportable for known multiple gestations. A negative result does not ensure an unaffected nor does it exclude the possibility of other chromosomal abnormalities or defects which are not a part of these tests. An uninformative result may be reported, the causes of which may include, but are not limited to, insufficient sequencing coverage, noise or artifacts in the region, amplification or sequencing bias, or insufficient fraction. These tests are not intended to identify pregnancies at risk for neural tube defects or ventral wall defects. Testing for whole chromosome abnormalities (including sex chromosomes) and for subchromosomal abnormalities could lead to the potential discovery of both and maternal genomic abnormalities that could have major, minor, or no, clinical significance. Evaluating the significance of a positive or a non-reportable result may involve both invasive testing and additional studies on the mother. Such investigations may lead to a diagnosis of maternal chromosomal or subchromosomal abnormalities, which on occasion may be associated with benign or malignant maternal neoplasms. These tests may not accurately identify triploidy, balanced rearrangements, or the precise location of subchromosomal duplications or deletions; these may be detected by diagnosis with CVS or amniocentesis. The ability to report results may be impacted by maternal BMI, maternal weight, maternal systemic lupus erythematosus (SLE) and/or by certain pharmaceutical agents such as low molecular weight heparin (for example: Lovenox(R), Xaparin(R), Clexane(R) and Fragmin(R)). Performed By: #### M AT21 ####[email or web address] LABAdvanced Mobile SolutionsIA [id number] [place] [address] Monosomy X risk Dosage of chromosome-specific cfDNA Ql (Plasma cell-free+WBC DNA) [Interp] Not detected Normal [facility] Comment on above: Order Comment: Speci men Type: BLOOD SPECIMENOrdering Facility: [facility] Address: [address] [place] [address] Performed By: #### M AT21 ####[employer] LABCLIA [id number] [place] [address] NEGATIVE PREDICTIVE VALUE Note Normal [facility] Comment on above: Order Comment: Speci men Type: BLOOD SPECIMENOrdering Facility: [facility] Address: [address] [place] [address] Result Comment: The Negative Predictive Value (NPV) for trisomy 21, 18, and 13 is greater than 99%. The NPV for SCA and ESS cannot be calculated as SCA and ESS are only reported when an abnormality is detected. Performed By: #### M AT21 ####[email or web address] LABIA [id number] [place] [id number] NOTE Comment Normal [facility] Comment on above: Order Comment: Speci men Type: BLOOD SPECIMENOrdering Facility: [facility] Address: [address] [place] [address] Result Comment: See Notes [employer] is a subsidiary of [employer], using the brand [employer]. This test was developed and its performance characteristics determined by [employer]. It has not been cleared or approved by the Food and Drug Administration. This laboratory is certified under the Clinical Laboratory Improvement Amendments (CLIA) as qualified to perform high complexity clinical laboratory testing and accredited by the [employer] ([employer]). If there is future clinical need for adding MaterniT GENOME testing, this specimen will be available until term. [facility] samples will not be retained beyond 60 days. [facility] patients will have to send a new sample for re-sequencing ([facility] Test Code: [id number]). Performed By: #### M AT21 ####[employer] LABCLIA [id number] [place] [id number] PERFORMANCE CHARACTERISTICS Note Normal [facility] Comment on above: Order Comment: Speci men Type: BLOOD SPECIMENOrdering Facility: [facility] Address: [address] [place] [address] Result Comment: ! Sex ! Accuracy: 99.4% ! ! ! ! Region (associated syndrome) ! Est. Sens# ! Est. Spec ! ! ! ! Trisomy 21 (Down Syndrome) ! 99.1% ! 99.9% ! ! ! ! Trisomy 18 (Fletcher Syndrome) ! >99.9% ! 99.6% ! ! ! ! Trisomy 13 (Patau Syndrome) ! 91.7% ! 99.7% ! ! ! ! Sex Chromosome Aneuploidies## ! 96.2% ! 99.7% ! ! ! * As reported in [facility] database nstd37 [https://www.ncbi.nlm.nih.gov/dbvar/studies/nstd37/ ] # Estimated Sensitivity. Sensitivity estimated across the observed size distribution of each syndrome [per [employer] database nstd37] and across the range of fractions observed in routine clinical NIPT. Actual sensitivity can also be influenced by other factors such as the size of the event, total sequence counts, amplification bias, or sequence bias. ## Corona gestation only. Performed By: #### M AT21 ####[employer] [facility] LABCLIA [id number] [place] [address] POSITIVE PREDICTIVE VALUE N/A Normal [facility] Comment on above: Order Comment: Speci men Type: BLOOD SPECIMENOrdering Facility: [facility] Address: [address] [place] [address] Performed By: #### M AT21 ####[employer] [facility] LABCLIA [id number] [place] [address] Reference Lab Test Method Comment Normal [facility] Comment on above: Order Comment: Speci men Type: BLOOD SPECIMENOrdering Facility: [facility] Address: [address] [place] [address] Result Comment: See Notes Circulating cell-free DNA was purified from the plasma component of maternal blood. The extracted DNA was then converted into a genomic DNA library for aneuploidy analysis of chromosomes 21, 18, and 13 via next generation sequencing.[1] Optional findings based on the test order include sex chromosome aneuploidy (SCA)[2], and enhanced sequencing series (ESS)[3], which will only be reported on as an additional finding when an abnormality is detected. SCA testing includes information on X and Y representation, while ESS testing includes deletions in selected regions (22q, 15q, 11q, 8q, 5p, 4p, 1p) and trisomy of chromosomes 16 and 22. Performed By: #### M AT21 ####[facility] LABCLIA [id number] [place] [address] Sex Dosage of chromosome-specific cfDNA Nom (cfDNA) Comment Normal [facility] Comment on above: Order Comment: Speci men Type: BLOOD SPECIMENOrdering Facility: [facility] Address: [address] [place] [address] Result Comment: Cons istent with Female Performed By: #### M AT21 ####[facility] LABCLIA [id number] [place] [address] Test performance information Darrell (Unsp spec) Comment Normal [facility] Comment on above: Order Comment: Fahad castellanos Type: BLOOD SPECIMENOrdering Facility: [facility] Address: [address] [place] [address] Result Comment: The performance characteristics of the MaterniT(R) 21 PLUS laboratory-developed test (LDT) have been determined in a clinical validation study with women at increased risk for chromosomal aneuploidy.[1-4] Performed By: #### M AT21 ####[email or web address] LABCLIA [id number] [place] [address] Trisomy 13 risk Dosage of chromosome-specific cfDNA Ql (cfDNA) [Interp] Negative Normal [facility] Comment on above: Order Comment: Fahad castellanos Type: BLOOD SPECIMENOrdering Facility: [facility] Address: [address] [place] [address] Performed By: #### M AT21 ####[facility] [facility] LABCLIA [id number] [place] [address] Trisomy 18 risk Dosage of chromosome-specific cfDNA Ql (Plasma cell-free+WBC DNA) [Interp] Negative Normal [facility] Comment on above: Order Comment: Fahad castellanos Type: BLOOD SPECIMENOrdering Facility: [facility] Address: [address] [place] [address] Performed By: #### M AT21 ####[employer] [facility] LABCLIA [id number] [place] [address] RBC PARAMETERS FOR HB IDon 0 10-03-2024 Erythrocyte distribution width (RBC) [Ratio] 13.8 % Normal 11.5-15.0 [facility] Comment on above: Order Comment: Fahad castellanos Type: BLOOD SPECIMENOrdering Facility: [facility] Address: [address] [place] [address] Performed By: #### L [id number] ####[facility] LABCLIA [id number] [facility] [id number] [address] [place] Hematocrit (Bld) [Volume fraction] 36.3 % Normal 36.0-46.0 [facility] Comment on above: Order Comment: Speci men Type: BLOOD SPECIMENOrdering Facility: [facility] Address: [address] [place] [address] Performed By: #### L [id number] ####[facility] LABIA [id number] [place] [address] [place] Hemoglobin (Bld) [Mass/Vol] 12.3 g/dL Normal 11.5-15.5 [facility] Comment on above: Order Comment: Speci men Type: BLOOD SPECIMENOrdering Facility: [facility] Address: [address] [place] [address] Performed By: #### L [id number] ####[facility] LABIA [id number] [place] [address] [place] MCH (RBC) [Entitic mass] 27.8 pg Normal 26.0-34.0 [facility] Comment on above: Order Comment: Speci men Type: BLOOD SPECIMENOrdering Facility: [facility] Address: [address] [place] [address] Performed By: #### L [id number] ####[facility] LABIA [id number] [place] [address] [place] MCHC (RBC) [Mass/Vol] 33.9 g/dL Normal 30.5-36.0 [facility] Comment on above: Order Comment: Speci men Type: BLOOD SPECIMENOrdering Facility: [facility] Address: [address] [place] [address] Performed By: #### L [id number] ####[facility] LABIA [id number] [place] [address] [place] MCV (RBC) [Entitic vol] 81.9 fL Normal 80.0-100.0 C [facility] Comment on above: Order Comment: Speci men Type: BLOOD SPECIMENOrdering Facility: [facility] Address: [address] [place], [place] [address] Performed By: #### L [id number] ####[facility] LABCLIA [id number] [place] [address] [place] RBC (Bld) [#/Vol] 4.43 10*6/uL Normal 3.90-5.20 [facility] Comment on above: Order Comment: Speci men Type: BLOOD SPECIMENOrdering Facility: [facility] Address: [address] [place] [address] Performed By: #### L [id number] ####[facility] LABIA [id number] [place] [address] [place] RUBELLA IGG ANTIBODYon 10-03 RUBELLA IGG AB, QUAL Positive Normal Positive [facility] Comment on above: Order Comment: Speci [facility] Type: BLOOD SPECIMENOrdering Facility: [facility] Address: [address] [place] [address] Result Comment: The result suggests recent or past exposure to Rubella virus or history of Rubella vaccination. Positive result may also be seen due to presence of passively-transferred antibodies. Please correlate with patient's history. Performed By: #### R [id number] ####[facility] LABIA [id number] [place] [address] [place] Reagin and Treponema pallidu m IgG and IgM [Interp]on 10-03-2024 T. pallidum IgG+IgM IA Ql (S) Non-Reactive Normal Nonreactive [facility] Comment on above: Order Comment: Speci men Type: BLOOD SPECIMENOrdering Facility: [facility] Address: [address] [place] [address] Performed By: #### 5 195-3, 06780-1, 44222-5 ####[facility] LABIA [id number] [place] [address] [place] Reagin+T pallidum IgG+IgM Se rPl-Impon 10-03-2024 Reagin and Treponema pallidum IgG and IgM [Interp] Cannot exclude recent Treponemal infection if specimen collected within 7-10 days after appearance of suspect lesions or 2-3 weeks after an exposure. Clinical correlation is required. Normal [facility] Comment on above: Order Comment: Speci men Type: BLOOD SPECIMENOrdering Facility: [facility] Address: [address] [place] [address] Performed By: #### 5 195-3, 17139-9, 58783-8 ####[facility] LABCLIA [id number] [address] [place] TYPE + SCREEN PRENATALon ABO A Normal [facility] Comment on above: Order Comment: Speci men Type: BLOOD SPECIMENOrdering Facility: [facility] Address: [address] [place] [address] Performed By: #### T SPN ####[facility] BLOOD BANKCLIA [id number] [place] [address] [place] Rh Nom (Bld) Positive Normal [facility] Comment on above: Order Comment: Speci men Type: BLOOD SPECIMENOrdering Facility: [facility] Address: [address] [place] [address] Performed By: #### T SPN ####[facility] BLOOD BANKCLIA [id number] [address] [place] TYPE AND SCREEN EXPIRATION 10/06/2024 23:59 Normal [facility] Comment on above: Order Comment: Speci men Type: BLOOD SPECIMENOrdering Facility: [facility] Address: [address] [place] [address] Performed By: #### T SPN ####[facility] BLOOD BANKCLIA [id number] [address] [place] PAP TESTOrdered By: Tiffany camarena on 09-21-2024 Case Report Gynecologic Cytology Report Case: [id number] Authorizing Provider: Vera Hatch APRN.CNM Collected: 09/16/2024 10:21 AM Ordering Location: OB/Gynecology Received: 09/16/2024 02:19 PM First Screen: Riley, Tiffany, CT, ASCP Specimen: Pap Test, ThinPrep, Cervix [facility] Clinical History Routine Exam [facility] Interpretation Negative [facility] LMP 07/08/2024 [facility] Pap Disclaimer f5dgoUMsYPIlx9wqROIq bGFuZzEwMzNcZnRuYmpc sDPgCZmjohKpKSrnd8Uc O2VlGjZpLJfsvvPtKUNk IgefduovDSRxVQG8xnEw JBOlTQglLPXcXFdaTr7w dRAkoIdoAmYeBEQtu6bs krSKogslbYp7v2wuQWKq JsZ4mXPtPPloN9yqktJx jOErZJWcTPn4bB16BBUj jF5vjUOrJIqjuuHxKyT1 RKjiJFObNyL3EGYafBCq CVTxQ2bcYYYqUGwoHVPo ULczrHUmPXS2mQpks7N3 bGVzaGVldHtcZjBcZnMy AtSNl1RtQGy5fRtlG5Ha JZZeWbZ1yMPpHXSxNUrc PDZhQYFdveF9gT96OKtl jdH9jEVap0Hay71zs385 wZ9fyQEeRLF7LQLaEIJq aNUmMYVyILO7DXQwyFIx L1jaMVXtIR1yitgfQUea EWgfJXNbdJI6NITnbBBm I5GuMQUtTUioYUKjcwx4 VfRrZf3vmUVulKdeBZuu m1ows2glzNKgZff1KRDl XbVnRnquDCcab9Ihb6xs OPLhrt8hFEM5tZXfnEdq u5K4hGZgRMJjrUAcebQj KJPiSaO5BYgoWF3fig37 QNOuQDS6vn6yzLXnsYks ayGfdUJgQRgdZ1ZzOJOo a453YAOxC4WvCLEho9V3 ytOoEiTcMAPngKC1zvR9 PPRbFEb5lPHeyqN6rfVm pQDqE4swzA5vIWRaYE2a jriqx5saCKymXLfuSLAq sMF7hyG1SPZdlBIgH6Tb sJ2rHWDjTJelEUQpgjn9 XvIxNp8soQNlqSapZKfe YmtwYWdlXHBnbmNvbnRc cGduZGVjXHBsYWluXHBs YWluXGYwXGZzMjRccWxc oAcwqW6oQiLdQfZhXohm FN9oIEIvU0jglTPuOTYc VTWgO3miPaWkcQ7qfVyo TDfyjnE1JCWnRRGYPEMv R72bRAVptLCqAGFyP1Lj SJ5oozmxaLGijBQij7Yv W4YlkezqEMceY4LtX2Bh BmVzBsGzk4VtebLnYEKc zaFpbsAbsIi4lxOlT8S0 lzP9mYSkJHHmhJOaF7Cw HY5iujraxWVhvOOsPPTq kDtdf9a8pN0hHIJbEFYw ZWVkIGZvciByZXNjcmVl eoiiSuWdnZEsZEEwoL6m bmRlZCBpbnRlcnZhbHMs IGFuZCBjbGluaWNhbCBj z9CiPFuubYtjli1fnXkg xT4cYaYkUlJwTyxeRO8y LSHhF6zwwBDfCUSeLNWe V4kqShEhqT0emDhgCLtj gkNbWZGzly45 [facility] PAP Geology Faculty Member Comment h8tgeTTvARHeg3tvLCTm bGFuZzEwMzNcZnRuYmpc dCSuJYajbwYtCVfvp4Od O3WbTqNjZBuwfiPaGINw QglvegekDUFnNBO5woCm WOCpEOmzYTMfZZrlQq0p eUInzLphJvWsGHKvv6ne nxFYmswksWc9g6pkDKOu QcE1pCFgLJxwQ4djqpLd cZMrAXAxEMd7hI11AYQk aZ8dfPXiCJosbeUiQrR1 DBhcRSRwFhU8ODGtaSZg DGJgK5ybLCAcGWdcPIVv XPvepFJtWEU6rUpvl2T9 bGVzaGVldHtcZjBcZnMy PkQEu6RqMVr9gIiiL1Uq GWSdLyM2vWUtFSQwHJgm SQXrPLOuoaR0tR27ERju kgC3iMUzv1Twf67ps707 xR0ynDJmAEJ1QGZnNIFj wILaDMNwTRX5VYHjyEBh K8leFBWaAI8zdxmoQCcs RMgcGCVxcKK7LYBjxOLa L3EfOGObDJvvSVOijmn4 QpThWp1ifVCmxAseNQrc e7lqn6fwfETnSji9UTGi JmBpUbqvDZvtz1Akz9ol DWAzah6fNPJ5aUOiuFfv r3F1nXTsZFPpdGAieiCy DDNzUjD4QPxeIO6sqh12 NMDvPCL0zm1isAFvqWaf dtLmvNEoTKqiI0OwPVSu y382IUBwN6XbMBNty9R4 psKyTcBlHNRltIE9gfY5 DITsSFc6pVSthmJ6dgUc mEIwA2zcwV1iUPHfMV0n mctlf7rhDYepYDdgDFWp xTH4uqM5FASnaXWfA5Np mC9sOXFlONwcMNUfwlq5 VjEzFc7rzZJdvVvkZMvb YmtwYWdlXHBnbmNvbnRc cGduZGVjXHBsYWluXHBs YWluXGYwXGZzMjRccWxc kNqxhA2vCyChKeSjOnvv GL7dWNIhO4sskZOgOROn GWVjT1kyJuVmpP6rwNpq TAcywcZ8FVsjTZhnjbUh dNGayR9ivnFtLWNvTbBi biBhbmFseXplZCBieSB0 uICnTErcbsAdBLZnEM6x X0waUnIGhXA0ZJ7jRIKn SVA5vQ7hXWKmFPTbfIYf lT9xCSDcTFAbKUGySWme w3xuiIDkTBH0rTjrbOFz h3Xso5ItNYJgCSKcDSEh lrC0p6H7MWduXET3MQc4 YNGuzfgaC2OuxALmz83c VGhpblByZXAgUGFwIHRl s8FcToWwPs7lcE91hW6a UWF9eO9jVNQlBGRapAVz mK8qYIXrPZciN2OuIIVe aWVsZHMgZnJvbSBldmVy eSBzbGlkZSBhcmUgcmV2 wAU2IUSlQtwmVWUetYUj nFAlxE7rqG8dlHB9Vrjn bGFpblxmMVxmczIyXGxh duqmJCWfHJejT2iaTaCx GTGphWmtUDoso2IuSQKx XGZzMjJccGFyfX0= [facility] Performing Lab j4kvxSAuQHLzs7fsGIAo bGFuZzEwMzNcZnRuYmpc dWMxIHtccnRmMVxhbnNp XGRlZmxhbmcxMDMzXGZ0 sbXiYQYkVBR4MCG7AtDm p0G4DJRgUvVhLGQqGE4t iBqfIUKpJM5jTUHzI5wv tP0thnl0DlYyHEAxCrB0 CJSgjyT2Ycr2NHZbQYku s4okc1BrTVQeLXu9qXmh HsIrNKOcf2jwpfCpCxEs WCHyNRBiTETlgCRgR584 v2pmn4xqcdDtiHK2WLEe GDQ9MPdjbaFzbaB9KVta aLWvQvD6RPuztzUsQEtw bzYibhXsRau9TYLbG742 DKJ7oVoog7prFHT4TAOz MUErSsRiUp0xaZJmI934 OWIcXBVHBTFdiFn3REXs vhSpevVkvOYIy942D176 b8owMEXuuoPzlUaIsdvv n2kwF505ZZYhjVDjtfEn ThZxIZMscIDoxBR3QGVs FP4mizxxRPcjDWyaDSJi jaV6YEDhoHHsV2IoNGFi TG8ekzliEEV4CSwpDYFd BSN1WyHnQXNfz2Ovjbs9 GcEspf0hyo72BDL6j2Wc hXkaFKW4QFP0TaGnWa1a wYNjZRUmWX0mLpClrGVs KBDuzd71nAevANrvodPh bV5gWyEhYZBlgIXvTMWp NU2udRWcTOMrxU2uwund XHBnYnJkcmhlYWRccGdi usHxZg8haUiaRAG3GKtw B4kjjY1rXnD3ZFgtP9th hI2pRSx8QNycwUU3MSHe jI1lCM8kelmqq5ipHGag BEgeIOYnthF5flJ4RWNz rEPgC0MweQ7hMGCbNZ4u zbqjp8vdLRJ8NWblZAPf ATQ9TdSeJOZjf1Bcjco0 IxQdm2TfiOVaOItvM38h o449MHDlstBgV1tkbVDl blxwbGFpblxmMFxmczI0 XHFsXHBsYWluXGYxXGZz MjJcbGFuZzEwMzNcaGlj aFxmMVxkYmNoXGYxXGxv U6dmYtRqBzTwTiGGRWIb yxadTZigP86nlD6uCU21 IOXgoSUpeIVtmS9fxE3z tUH4MLUbfwNefmcqWuJx UYPgg2FfMJEeYLNxQ7cp ziZlEH9pTPBiaF6gHkJR MNwybqvppiMEn2LkgTJk fVxyAWxhNCQcEY8sKCpa GRR7MTxrT6zjahJuWV8c NKGSFWJ3BZUtEPIzVOGW XElYZmHkEwQmKkt5NAU3 YEAmyrqvGVZ3eTlggfCy WXlod1RxZ0ExFvGlADbx bnNpXGRlZmxhbmcxMDMz PSA8jiHqSMPfTUtnEAIt GZapBm4moJGjrFkxOwJo ZYXig8grhtTSiqlndZw7 y0omSCAqCcX1gJKnQVun C6autmMiyNJrKPWeGLw5 aZ81VJFtiR9buLMjYCzl ckDpJoY9AMibTTXjKcA9 AFQugWEqFNKnW3nvDVIf XGdyZWVuMFxibHVlMCA7 mJijn9B8jQCfiTAytOld TaYhFkMfOtHFv2DrTSd7 tGdnW0MsZSVqUfC0rTRr UGFyYWdyYXBoIEZvbnQ7 cR20LRbsdoL5yIJkf3Xc d12gw682nG9xsQXyARK3 MTIyNDBccGFwZXJoMTU4 ZGLbpSUzG6arHRSdOU1y cmdyMTgwMFxtYXJndDE0 GJMweIAoP1KiKLHdQWrs UYSunbv3ZkElGs7qeKMa gFdtKWaoy7nrk6rzdGPx Hbl3MCNqKtPpCbxnEKvk g6Yqf2meTSCrdc2mBXR7 qUWnlNccd8D6lQVqOAOk kTTfjqJpFZKgji03jZDd gJOsxZPovy5cieHmcNLh rORwDIO6pHVfcrIyWTZw eDVrCWQmMBThR7orHuNx geJeC3nbL4JjOHBjZQTn LEZeMjFiuwJtv3Hvh9Ys bIRexBb0d3bwMKJsGHUh lGwgs0spIEO9PJPjW7S7 tABuc6qiURvoWGRrqVO4 svT2CEJuiMQaB2YolR2v LDFlRD0ppda8q6dyLPZ2 GWrqAWNlRbV8jzO5KQGk fOTqNIKooPlpTPtip795 VMD4QaAuVQQtw9IgZ3Lb aNtoM72jrOtsI64nYBWq cOowrX0kqZmpeQ3mSoSe ZnMyNFxxbFxwbGFpblxm MVxmczIyXGxhbmcxMDMz QXnyU2rvXhGqWJWrpUvv OZfcw0CiTSNhSJIdKuGy OKyjA49ln3OaNsBsipCk cnByZXRhdGlvbiBwZXJm t8VxFVQaRPFiQ1qbbyNr HV2nAYZfvH7tUfWZAZbv gtksrlUBa5XkxDXneEjm NXkeNPVkIJ6bAXezCRS7 TBfcR3gtkyHzRR8dMREO MCA1PVVbLGQtLRRMCRqO HyMaAaJdJdj8AJC5EWVn clxwYXJccGFyZFxwbGFp rvlnNPyatxU1TXMdNSpv XGYxXGZzMjJcbGFuZzEw MzNcaGljaFxmMVxkYmNo SNKzIJtdH3jdKhSaY8Wn NECyXhYvzYCjJ0jtJRMn m9ShaC6nfGZwwAumeL3s HuFpQpYiSnsuLG7gPJYu A1yavDBoYDRfTLTmT4kv FwZevN5csRjxBHfdneQz HIPispZsmF1fLeJHMEYk XNafSQ9jwUUeOUdbotzz EN3WLcuvMMR2oT== [facility] Specimen Adequacy Satisfactory for interpretation. [facility] BACTERIAL CULTURE, URINEOrde red By: Jon De Leon on 09-17-2024 Bacteria identified Cx Nom (U) 10,000 -<50,000 CFU/ml Normal urogenital shine [facility] BACTERIAL VAGINOSIS NAATon 0 09-17-2024 Interpretation and review of laboratory results Normal [facility] Lactobacillus crispatus+gasseri+jense jona + Gardnerella vaginalis + Atopobium vaginae rRNA FAVIOLA+probe Ql (Vag fld) Not detected Not detected [facility] Bacteria identified Cx Nom ( U)Ordered By: Jon De Leon on 09-17-2024 [facility] C. trachomatis+N. gonorrhoea e DNA FAVIOLA+probe Ql (Unsp spec)on 09-17-2024 C. trachomatis rRNA FAVIOLA+probe Ql (Unsp spec) Not detected Not detected [facility] Interpretation and review of laboratory results Normal [facility] N. gonorrhoeae rRNA FAVIOLA+probe Ql (Unsp spec) Not detected Not detected [facility] This FDA-approved assay has been modified to accept rectal swabs self-collected in a healthcare setting. For self-collected rectal swabs, the test was developed and its performance characteristics determined by the [facility]'s [facility] [place] [facility] It has not been cleared or approved by the FDA. [facility] is regulated under CLIA as qualified to perform high-complexity testing. This test is used for clinical purposes. It should not be regarded as investigational or for research. [facility] KANG/TRICHOMONAS NAATon 0 09-17-2024 C. glabrata RNA FAVIOLA+probe Ql (Vag fld) Not detected Not detected [facility] Kang sp DNA FAVIOLA+probe Ql (Vag fld) Not detected Not detected [facility] Comment on above: The Kang species group target includes C. albicans, C. tropicalis, C. parapsilosis, and C. dubliniensis. Interpretation and review of laboratory results Normal [facility] T. vaginalis DNA FAVIOLA+probe Ql (Unsp spec) Not detected Not detected [facility] BACTERIAL VAGINOSIS NAATon 0 09-16-2024 Lactobacillus crispatus+gasseri+jense jona + Gardnerella vaginalis + Atopobium vaginae rRNA FAVIOLA+probe Ql (Vag fld) Not detected Normal Not detected [facility] Comment on above: Order Comment: Speci men Type: SWABOrdering Facility: [facility] Address: [address] [place] [address] Performed By: #### B REBECCA MEDELLINV ####[facility] LABCLIA [id number] [place] [address] [place] Bacteria Ur Culton Bacteria identified Cx Nom (U) ORGANISM ID: 1 10,000 -<50,000 CFU/ml Normal urogenital shine Normal [facility] Comment on above: Performed By: #### 6 30-4 ####[facility] LABCLIA [id number] [place] [address] [place] C. trachomatis+N. gonorrhoea e DNA FAVIOLA+probe Ql (Unsp spec)on 09-16-2024 C. trachomatis rRNA FAVIOLA+probe Ql (Unsp spec) Not detected Normal Not detected [facility] Comment on above: Order Comment: Speci men Type: SWABOrdering Facility: [facility] Address: [address] [place] [address] Performed By: #### 3 6902-5 ####[facility] LABCLIA [id number] [place] [address] [place] N. gonorrhoeae rRNA FAVIOLA+probe Ql (Unsp spec) Not detected Normal Not detected [facility] Comment on above: Order Comment: Speci men Type: SWABOrdering Facility: [facility] Address: [address] [place] [address] Performed By: #### 3 6902-5 ####[facility] LABCLIA [id number] [place] [address] [place] KANG/TRICHOMONAS NAATon 0 09-16-2024 C. glabrata RNA FAVIOLA+probe Ql (Vag fld) Not detected Normal Not detected [facility] Comment on above: Order Comment: Speci men Type: SWABOrdering Facility: [facility] Address: [address] [place] [address] Performed By: #### B VAMP, CVTV ####[facility] LABCLIA [id number] [place] [address] [place] Kang sp DNA FAVIOLA+probe Ql (Vag fld) Not detected Normal Not detected [facility] Comment on above: Order Comment: Speci men Type: SWABOrdering Facility: [facility] Address: [address] [place] [address] Result Comment: The Kang species group target includes C. albicans, C. tropicalis, C. parapsilosis, and C. dubliniensis. Performed By: #### B VAMP, CVTV ####[facility] LABCLIA [id number] [place] [address] [place] T. vaginalis DNA FAVIOLA+probe Ql (Unsp spec) Not detected Normal Not detected [facility] Comment on above: Order Comment: Speci men Type: SWABOrdering Facility: [facility] Address: [address] [place] [address] Performed By: #### B VAMP, CVTV ####[facility] LABCLIA [id number] [place] [address] [place] PAP TESTon 09-16-2024 ADEQUACY Satisfactory for interpretation. Normal [facility] Comment on above: Order Comment: Speci men Type: FLUID SPECIMENOrdering Facility: [facility] Address: [address] [place] [address] Performed By: #### L [id number] ####[facility]ORY[facility] [id number] [place] [address] [place] LAB[facility] [id number] [place] [address] [place] CASE REPORT Normal [facility] Comment on above: Order Comment: Speci men Type: FLUID SPECIMENOrdering Facility: [facility] Address: [address] [place] [address] Result Comment: Gyne cologic Cytology Report Case: [id number] Authorizing Provider: Vera Hatch APRN.CNM Collected: 09/16/2024 10:21 AM Ordering Location: OB/Gynecology Received: 09/16/2024 02:19 PM First Screen: Riley, Tiffany, CT, ASCP Specimen: Pap Test, ThinPrep, Cervix Performed By: #### L [id number] ####[facility]ATORYCLIA [id number] [address] LABCLIA [id number] [place] [address] [place] CLINICAL HISTORY, CYTOLOGY, SUSTAINABILITY SPECIALIST Routine Exam Normal [facility] Comment on above: Order Comment: Speci men Type: FLUID SPECIMENOrdering Facility: [facility] Address: [address] [place] [address] Performed By: #### L [id number] ####[facility] LABORATORYCLIA [id number] [address] LABCLIA [id number] [address] [place] FINAL PERFORMING LAB Normal [facility] Comment on above: Order Comment: Speci men Type: FLUID SPECIMENOrdering Facility: [facility] Address: [address] [place] [address] Result Comment: Tech nical component, shopper's aide screening performed at [facility], [address] [place] [address] CLIA# [id number] Diagnostic interpretation performed at [facility], [address] [place] [id number] CLIA# [id number] Motor Transport Inspector: Mihai Mcguire M.D. Performed By: #### L [id number] ####[facility] LABORATORYCLIA [id number] [place] [id number] [facility] LABCLIA [id number] [place] [address] [place] INTERPRETATION, CYTOLOGY, SUSTAINABILITY SPECIALIST Normal [facility] Comment on above: Order Comment: Speci men Type: FLUID SPECIMENOrdering Facility: [facility] Address: [address] [place] [address] Result Comment: Nega tive for intraepithelial lesion or malignancy. Performed By: #### L [id number] ####[facility] LABORATORYCLIA [id number] [place] [id number] [facility] LABCLIA [id number] [address] OF [facility] 07/08/2024 Normal [facility] Comment on above: Order Comment: Speci men Type: FLUID SPECIMENOrdering Facility: [facility] Address: [address] [place] [address] Performed By: #### L [id number] ####[facility] LABORATORYCLIA [id number] [place] [id number] [facility] LABCLIA [id number] [place] [id number] [place] PAP DISCLAIMER COMMENT The Pap Smear is a screening test for cervical cancer. False negative results occur with all screening tests, emphasizing the need for rescreening at recommended intervals, and clinical correlation. Normal [facility] Comment on above: Order Comment: Speci men Type: FLUID SPECIMENOrdering Facility: [facility] Address: [address] [place] [address] Performed By: #### L [id number] ####[facility] LABORATORYCLIA [id number] [place] [id number] [facility] LABCLIA [id number] [place] [id number] [place] PAP TIMBER MANAGEMENT SPECIALIST COMMENT This specimen has been analyzed by the ThinPrep Imaging System, an automated imaging and review system, which assists the laboratory in evaluating cells on ThinPrep Pap tests. Following automated imaging, selected peña from every slide are reviewed by a shopper's aide. Normal [facility] Comment on above: Order Comment: Speci men Type: FLUID SPECIMENOrdering Facility: [facility] Address: [address] [place] [address] Performed By: #### L [id number] ####[facility] LABORATORYCLIA [id number] [address] STATES OF [facility] LABCLIA [id number] [address] STATES OF [facility] Pelvison 08-29-2024 Indication dating Impression - Single, live, intrauterine . - An intrauterine gestational sac with a yolk sac and pole is present. - [place] rump length measurement is consistent with the established gestational age. - heart rate is within normal limits. Recommendations Additional follow-up as clinically indicated. Method Color Doppler examination. Transabdominal and transvaginal ultrasound examination. View: Adequate visualization [place] . Number of embryos: 1 Dating LMP on: 07/08/2024 Cycle: LMP date uncertain GA by LMP 7 w + 0 d FELIPE by LMP: 04/14/2025 Ultrasound examination on: 08/26/2024 GA by U/S based upon: CRL GA by U/S 6 w + 3 d FELIPE by U/S: 04/18/2025 Assigned: based on the LMP, selected on 08/26/2024 Assigned GA 7 w + 0 d Assigned FELIPE: 04/14/2025 Assessment Gestational sac: visualized Location: intrauterine Yolk sac: visualized YS 2.2 mm <1% [place] Embryo: visualized CRL 5.8 mm 6w 3d <1% [place] Cardiac activity: present FHR 126 bpm Maternal Structures Uterus / Cervix Uterus: Visualized Uterus position: anteverted Description of uterine malformations: none Myometrium: normal Uterus width 58 mm Uterus height 50 mm Endometrium: live IUP noted within Cervix: Visualized Cervix details: normal Ovaries / Tubes / Adnexa Rt ovary: Visualized Rt ovary D1 28 mm Rt ovary D2 18 mm Rt ovary D3 19 mm Rt ovary Vol 4.9 cm Rt ovarian corpus luteum: hemorrhagic Rt ovarian corpus luteum D1 15.4 mm Rt ovarian corpus luteum D2 16.4 mm Rt ovarian corpus luteum D3 13.6 mm Lt ovary: Visualized Lt ovary details: TA only Lt ovary morphology: premenopausal normal follicular Lt ovary D1 41 mm Lt ovary D2 20 mm Lt ovary D3 13 mm Lt ovary Vol 5.6 cm Cul de Sac / Bladder / Kidneys / Other Cul de Sac: Visualized Free fluid: no free fluid visualized Performed By: Effie Hernandez RDMS Read By: Deanna Beverly M.D. MATERNAL MEDICINE [facility] CNOVon 08-26-2024 CNOV Office Visit (OBGYWM) RHONDA COHEN ([id number]) 1 F Date Time Provider Department 08/26/24 9:40 AM MARIA EPPS OBGYWM During your visit today, we recorded the following information about you: Blood pressure Weight 108/60 62.1 kg Maria Epps MD 08/26/2024 9:56 AM Signed Rhondadiana Cohen is a 19 year old female who presents for follow up ultrasound results. Pt reports has some cramping. No vaginal bleeding. Has some nausea and stomach pain. Has her new ob appt scheduled. No other concerns today. OB History T0 L0 SAB0 IAB0 Ectopic0 Multiple0 Live Births0 Channeler Outsole History LMP: 07/08/2024, Having periods Age at Menarche: Age at First : Age at Menopause: Channeler Outsole History Comments: Sexual Activity: Yes; Male Contraception: Not used PAST MEDICAL HISTORY Diagnosis Date Anxiety and depression History of IBS PAST SURGICAL HISTORY Procedure Laterality Date EGD W/O BRSH SPEC VARICIES INJ 07/06/2023 FAMILY HISTORY Problem Relation Age of Onset Fibromyalgia Mother Cervical Cancer Mother other (diverticulitis) Mother Kidney Disease Father No Known Problems Sister Kidney stones Brother No Known Problems Brother No Known Problems Brother Bipolar disorder Maternal Grandmother other (endometriosis) Maternal Grandmother Heart Maternal Grandfather No Known Problems Paternal Grandmother Heart Attack Paternal Grandfather other (endometriosis) Other Social History Tobacco Use Smoking status: Never Passive exposure: Never Smokeless tobacco: Never Vaping Use Vaping status: Never Used Substance Use Topics Alcohol use: Never Drug use: Never Current Outpatient Medications Medication Sig phenazopyridine (PYRIDIUM) 200 mg tablet Take 1 tablet by mouth every 8 hours as needed. omeprazole (PRILOSEC) 40 mg capsule Take 1 capsule by mouth once daily. fexofenadine (MELISA) 180 mg tablet Take 1 tablet by mouth four times daily. gabapentin (NEURONTIN) 300 mg capsule Take 1 capsule by mouth as directed for 60 days. fluticasone (FLONASE ALLERGY RELIEF) 50 mcg/actuation nasal spray Use 1 [place] in each nostril once daily. Brompheniramine-Pseu doeph-DM (BROMFED DM) 2-30-10 mg/5 mL syrup Take 5 mL by mouth four times a day as needed. diphenhydrAMINE (BENADRYL) 25 mg capsule hyoscyamine sublingual (LEVSIN/SL) 0.125 mg Dissolve 1 tablet under the tongue every 4 hours as needed (abdominlal pain). cholecalciferol, Vitamin D3, (VITAMIN D3) 1,250 mcg (50,000 unit) cap capsule Take 1 capsule by mouth one time a week. DULoxetine (CYMBALTA) 20 mg capsule Take 1 capsule by mouth once daily. peppermint oil (IBGARD) 90 mg CECX Take 1 capsule by mouth once daily as needed (INTESTINAL UPSET). No current facility-administere d medications for this visit. Allergies As of Date: 08/26/2024 Allergen Noted Reaction ATARAX [HYDROXYZINE] 06/30/2023 Other: See Comments ACETAMINOPHEN 05/27/2022 Diarrhea CHLORHEXIDINE 06/29/2023 Rash CIPROFLOXACIN 06/29/2023 Other: See Comments CLINDAMYCIN 06/29/2023 Anaphylaxis IBUPROFEN 05/27/2022 Diarrhea LACTOSE 11/02/2021 Diarrhea PEANUT BUTTER FLAVOR 04/29/2023 Diarrhea and GI Upset PENICILLINS 01/08/2019 Other: See Comments RED DYE 07/05/2023 Intolerance TRAMADOL 09/11/2023 Other: See Comments ZITHROMAX [AZITHROMYCIN] 01/27/2024 Diarrhea Fully Assessed 08/26/2024 REVIEW OF SYSTEMS Abdomen: see hpi Bladder: no dysuria. Expanded ROS: GENERAL: no fever Allergies and current medication updated:Yes SENSITIVE EXAM: Sensitive exam not performed. EXAM: BP 108/60 Wt 137 lb (62.1kg) LMP 07/08/2024 GENERAL: pleasant, female in no apparent distress HEENT: Normocephalic and atraumatic NECK: full range of motion NEURO: alert and oriented x3,exam grossly non-focal EXTREMITIES: normal ASSESSMENT AND PLAN: Assessment AND Plan Abdominal pain in , first trimester Ultrasond confirm 6w3 day intrauterine Nausea and vomiting in Confirm cardiac activity, ultrasound Visit for confirmation of test result with physical exam Reviewed taking pnv. Reviewed b6 and unisom. Discussed expectations. Reivewed if vaginal bleeding call office. Discussed tums and otc pepcid. Small frequent meals I spent a total of 20 minutes on the date of the service which included preparing to see the patient, [id number] patient care, completing clinical documentation, obtaining and/or reviewing separately obtained history, performing a medically appropriate examination, and counseling and educating the patient/family/careg iver. Maria Madrid MD Referring Provider: VERA HATCH [[id number]] Allergies As of Date: 08/26/2024 Noted Allergy Reaction ATARAX (HYDROXYZINE) 06/30/2023 14 - Other: See Comments Comments: Patient has paradoxical effect, she is hypera (more content not included)... Normal [facility] US Pelvison 08-26-2024 Radiology Study observation (narrative) [facility] 08-22-2024 CNPN Telephone (OBGYWM) RHONDA COHEN ([id number]) 1 F Date Time Provider Department 08/22/24 VERA HATCH OBCLARAWM During your visit today, we recorded the following information about you: Veronica Mcdonald RN 08/22/2024 8:21 AM Signed Patient's u/s got moved up tomorrow for uncertain dates. She said she was to have an appt with provider after it. I did schedule this with RR then. Did you want to see her instead? u/benita is scheduled at 1pm. After ending call though I noticed she does not have a OB episode open. Did you not do the full NOB on 08/16? She does not have another NOB appt scheduled as of now either if this is a viable . She only has est OB appts. UMAIR Melton Jessica, APRN.CNM 08/22/2024 10:24 AM Signed As long as she has an appointment with a provider that is fine. It was not a NOB but a problem visit due to gestational age. Will need to schedule a full NOB after viability confirmed. Thanks, Vera Hatch APRN.CNM Allergies As of Date: 08/22/2024 Noted Allergy Reaction ATARAX (HYDROXYZINE) 06/30/2023 14 - Other: See Comments Comments: Patient has paradoxical effect, she is hyperalert and is up all night. ACETAMINOPHEN 05/27/2022 6 - Diarrhea CHLORHEXIDINE 06/29/2023 2 - Rash Comments: Rash/burning CIPROFLOXACIN 06/29/2023 14 - Other: See Comments Comments: Family history of the allergy CLINDAMYCIN 06/29/2023 10 - Anaphylaxis IBUPROFEN 05/27/2022 6 - Diarrhea LACTOSE 11/02/2021 6 - Diarrhea PEANUT BUTTER FLAVOR 04/29/2023 6 - Diarrhea 8 - GI Upset PENICILLINS 01/08/2019 14 - Other: See Comments Comments: 06/29/23: Extensive family history of multiple antibiotic allergies including penicillins. Report multiple family members having anaphylaxis reactions. RED DYE 07/05/2023 5 - Intolerance TRAMADOL 09/11/2023 14 - Other: See Comments Comments: Blurred vision ZITHROMAX (AZITHROMYCIN) 01/27/2024 6 - Diarrhea Date Reviewed: 08/16/2024 Reviewed by: Thomas Cohen MA - Fully Assessed Reason for Visit: Appointment [186] Prescriptions as of 08/22/2024 - phenazopyridine (PYRIDIUM) 200 mg tablet Take 1 tablet by mouth every 8 hours as needed. - omeprazole (PRILOSEC) 40 mg capsule Take 1 capsule by mouth once daily. - fexofenadine (MELISA) 180 mg tablet Take 1 tablet by mouth four times daily. - gabapentin (NEURONTIN) 300 mg capsule Take 1 capsule by mouth as directed for 60 days. - fluticasone (FLONASE ALLERGY RELIEF) 50 mcg/actuation nasal spray Use 1 [place] in each nostril once daily. - Brompheniramine-Pseu doeph-DM (BROMFED DM) 2-30-10 mg/5 mL syrup Take 5 mL by mouth four times a day as needed. - diphenhydrAMINE (BENADRYL) 25 mg capsule - hyoscyamine sublingual (LEVSIN/SL) 0.125 mg Dissolve 1 tablet under the tongue every 4 hours as needed (abdominlal pain). - cholecalciferol, Vitamin D3, (VITAMIN D3) 1,250 mcg (50,000 unit) cap capsule Take 1 capsule by mouth one time a week. - DULoxetine (CYMBALTA) 20 mg capsule Take 1 capsule by mouth once daily. - peppermint oil (IBGARD) 90 mg CECX Take 1 capsule by mouth once daily as needed (INTESTINAL UPSET). 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 Address: [address] [place] [address] Result Comment: YANI TITATIVE HCG NORMAL RANGES Weeks of Gestation (Weeks Since LMP) 3 Weeks (5.8-71.2 mIU/mL) 4 Weeks (9.5-750 mIU/mL) 5 Weeks (217-7138 mIU/mL) 6 Weeks (158-64260 mIU/mL) 7 Weeks (3697-926189 mIU/mL) 8 Weeks (27368-759149 mIU/mL) 9 Weeks (68033-823042 mIU/mL) 10 Weeks (60319-128504 mIU/mL) 12 Weeks (77977-138659 mIU/mL) Referenced to 4th IS of [facility] Performed By: #### 2 1198-7 ####[facility] LABORATORYCLIA [id number] [address] B-HCG SerPl-aCncon 4 HCG.beta subunit Qn 6757.0 m[IU]/mL High <5.0 [facility] Comment on above: Order Comment: Speci men Type: BLOOD SPECIMENOrdering Facility: [facility] Address: [address] [place] [address] Result Comment: YANI TITATIVE HCG NORMAL RANGES Weeks of Gestation (Weeks Since LMP) 3 Weeks (5.8-71.2 mIU/mL) 4 Weeks (9.5-750 mIU/mL) 5 Weeks (217-7138 mIU/mL) 6 Weeks (158-27259 mIU/mL) 7 Weeks (3697-454532 mIU/mL) 8 Weeks (16573-415515 mIU/mL) 9 Weeks (53236-563910 mIU/mL) 10 Weeks (02002-662220 mIU/mL) 12 Weeks (12771-877419 mIU/mL) Referenced to 4th IS of [facility] Performed By: #### 2 1198-7 ####[facility] LABORATORYCLIA [id number] [place] [address] [place] CNCOon 08-18-2024 CNCO Letter Text [facility] CNPNon 08-18-2024 CNPN Telephone (GYCFM) RHONDA COHEN ([id number]) 1 F Date Time Provider Department 08/18/24 SWATI GAUTHIER GYCFM During your visit today, we recorded the following information about you: Swati Gauthier, ALIYA.BOOKING SUPERVISOR 08/18/2024 9:36 AM Addendum Called Rhonda Cohen 08/18/2024 0929 a. Verified by name and sent communication regarding avoiding lifting over 50 pounds etc to [facility]. Swati Gauthier APRN.BOOKING SUPERVISOR Allergies As of Date: 08/18/2024 Noted Allergy Reaction ATARAX (HYDROXYZINE) 06/30/2023 14 - Other: See Comments Comments: Patient has paradoxical effect, she is hyperalert and is up all night. ACETAMINOPHEN 05/27/2022 6 - Diarrhea CHLORHEXIDINE 06/29/2023 2 - Rash Comments: Rash/burning CIPROFLOXACIN 06/29/2023 14 - Other: See Comments Comments: Family history of the allergy CLINDAMYCIN 06/29/2023 10 - Anaphylaxis IBUPROFEN 05/27/2022 6 - Diarrhea LACTOSE 11/02/2021 6 - Diarrhea PEANUT BUTTER FLAVOR 04/29/2023 6 - Diarrhea 8 - GI Upset PENICILLINS 01/08/2019 14 - Other: See Comments Comments: 06/29/23: Extensive family history of multiple antibiotic allergies including penicillins. Report multiple family members having anaphylaxis reactions. RED DYE 07/05/2023 5 - Intolerance TRAMADOL 09/11/2023 14 - Other: See Comments Comments: Blurred vision ZITHROMAX (AZITHROMYCIN) 01/27/2024 6 - Diarrhea Date Reviewed: 08/16/2024 Reviewed by: Thomas Cohen MA - Fully Assessed Reason for Visit: Patient Question [1477] Prescriptions as of 08/18/2024 - phenazopyridine (PYRIDIUM) 200 mg tablet Take 1 tablet by mouth every 8 hours as needed. - omeprazole (PRILOSEC) 40 mg capsule Take 1 capsule by mouth once daily. - fexofenadine (MELISA) 180 mg tablet Take 1 tablet by mouth four times daily. - gabapentin (NEURONTIN) 300 mg capsule Take 1 capsule by mouth as directed for 60 days. - fluticasone (FLONASE ALLERGY RELIEF) 50 mcg/actuation nasal spray Use 1 [place] in each nostril once daily. - Brompheniramine-Pseu doeph-DM (BROMFED DM) 2-30-10 mg/5 mL syrup Take 5 mL by mouth four times a day as needed. - diphenhydrAMINE (BENADRYL) 25 mg capsule - hyoscyamine sublingual (LEVSIN/SL) 0.125 mg Dissolve 1 tablet under the tongue every 4 hours as needed (abdominlal pain). - cholecalciferol, Vitamin D3, (VITAMIN D3) 1,250 mcg (50,000 unit) cap capsule Take 1 capsule by mouth one time a week. - DULoxetine (CYMBALTA) 20 mg capsule Take 1 capsule by mouth once daily. - peppermint oil (IBGARD) 90 mg CECX Take 1 capsule by mouth once daily as needed (INTESTINAL UPSET). 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 [ ] Intro, trend HCG, schedule appt Last contact: HC (08/10) US: (08/10) ?GS x 2 EBr 08/10/2024 Phone Called pt, verified name and . Introduced self and PEAC. LMP- end of jun? Hx of irregular cycles. Unplanned but desired. Reports intermittent pain, cramping feeling, sharp stabbing in middle abdomen. Denies VB. Reviewed SAB/bleeding and ectopic precautions, advised pt to present to the ED if she develops heavy VB saturating a pad in an hour or less for >2 hrs in a row, passing blood clots > or = to the size of a golf ball, and/or severe pain; pt verbalizes understanding. Will haveHCG drawn Thursday and V[facility]@[address] [place] [address] to review plan of care JS 08/17/2024 Discharge Pt seen by [facility] 08/12, most recent hCG normal rise. Pt had NOB appt on 08/16 with Vera Hatch, plan was made and pt has follow up USN and provider visit again on 08/30. At this time, [facility] will sign off as patient has appropriate follow up care and monitoring. Routing to Dr Ma and Vera Hatch. LW Allergies As of Date: 08/17/2024 Noted Allergy Reaction ATARAX (HYDROXYZINE) 06/30/2023 14 - Other: See Comments Comments: Patient has paradoxical effect, she is hyperalert and is up all night. ACETAMINOPHEN 05/27/2022 6 - Diarrhea CHLORHEXIDINE 06/29/2023 2 - Rash Comments: Rash/burning CIPROFLOXACIN 06/29/2023 14 - Other: See Comments Comments: Family history of the allergy CLINDAMYCIN 06/29/2023 10 - Anaphylaxis IBUPROFEN 05/27/2022 6 - Diarrhea LACTOSE 11/02/2021 6 - Diarrhea PEANUT BUTTER FLAVOR 04/29/2023 6 - Diarrhea 8 - GI Upset PENICILLINS 01/08/2019 14 - Other: See Comments Comments: 06/29/23: Extensive family history of multiple antibiotic allergies including penicillins. Report multiple family members having anaphylaxis reactions. RED DYE 07/05/2023 5 - Intolerance TRAMADOL 09/11/2023 14 - Other: See Comments Comments: Blurred vision ZITHROMAX (AZITHROMYCIN) 01/27/2024 6 - Diarrhea Date Reviewed: 08/16/2024 Reviewed by: Thomas Cohen MA - Fully Assessed Prescriptions as of 08/17/2024 - phenazopyridine (PYRIDIUM) 200 mg tablet Take 1 tablet by mouth every 8 hours as needed. - omeprazole (PRILOSEC) 40 mg capsule Take 1 capsule by mouth once daily. - fexofenadine (MELISA) 180 mg tablet Take 1 tablet by mouth four times daily. - gabapentin (NEURONTIN) 300 mg capsule Take 1 capsule by mouth as directed for 60 days. - fluticasone (FLONASE ALLERGY RELIEF) 50 mcg/actuation nasal spray Use 1 [place] in each nostril once daily. - Brompheniramine-Pseu doeph-DM (BROMFED DM) 2-30-10 mg/5 mL syrup Take 5 mL by mouth four times a day as needed. - diphenhydrAMINE (BENADRYL) 25 mg capsule - hyoscyamine sublingual (LEVSIN/SL) 0.125 mg Dissolve 1 tablet under the tongue every 4 hours as needed (abdominlal pain). - cholecalciferol, Vitamin D3, (VITAMIN D3) 1,250 mcg (50,000 unit) cap capsule Take 1 capsule by mouth one time a week. - DULoxetine (CYMBALTA) 20 mg capsule Take 1 capsule by mouth once daily. - peppermint oil (IBGARD) 90 mg CECX Take 1 capsule by mouth once daily as needed (INTESTINAL UPSET). 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 If increasing ok to wait for US results. If decreasing make sure patient knows bleeding precautions and still follow up US. JOSH Soler Lindsey, RN 08/17/2024 3:59 PM Signed Keep phone note open for 08/18 HCG Quant result. UMAIR Guajardo Trisha, RN 08/18/2024 2:57 PM Signed See 08/18/24 mychart message encounter. Veronica Mcdonald RN Allergies As of Date: 08/17/2024 Noted Allergy Reaction ATARAX (HYDROXYZINE) 06/30/2023 14 - Other: See Comments Comments: Patient has paradoxical effect, she is hyperalert and is up all night. ACETAMINOPHEN 05/27/2022 6 - Diarrhea CHLORHEXIDINE 06/29/2023 2 - Rash Comments: Rash/burning CIPROFLOXACIN 06/29/2023 14 - Other: See Comments Comments: Family history of the allergy CLINDAMYCIN 06/29/2023 10 - Anaphylaxis IBUPROFEN 05/27/2022 6 - Diarrhea LACTOSE 11/02/2021 6 - Diarrhea PEANUT BUTTER FLAVOR 04/29/2023 6 - Diarrhea 8 - GI Upset PENICILLINS 01/08/2019 14 - Other: See Comments Comments: 06/29/23: Extensive family history of multiple antibiotic allergies including penicillins. Report multiple family members having anaphylaxis reactions. RED DYE 07/05/2023 5 - Intolerance TRAMADOL 09/11/2023 14 - Other: See Comments Comments: Blurred vision ZITHROMAX (AZITHROMYCIN) 01/27/2024 6 - Diarrhea Date Reviewed: 08/16/2024 Reviewed by: Thomas Cohen MA - Fully Assessed Reason for Visit: Results [95] Prescriptions as of 08/18/2024 - phenazopyridine (PYRIDIUM) 200 mg tablet Take 1 tablet by mouth every 8 hours as needed. - omeprazole (PRILOSEC) 40 mg capsule Take 1 capsule by mouth once daily. - fexofenadine (MELISA) 180 mg tablet Take 1 tablet by mouth four times daily. - gabapentin (NEURONTIN) 300 mg capsule Take 1 capsule by mouth as directed for 60 days. - fluticasone (FLONASE ALLERGY RELIEF) 50 mcg/actuation nasal spray Use 1 [place] in each nostril once daily. - Brompheniramine-Pseu doeph-DM (BROMFED DM) 2-30-10 mg/5 mL syrup Take 5 mL by mouth four times a day as needed. - diphenhydrAMINE (BENADRYL) 25 mg capsule - hyoscyamine sublingual (LEVSIN/SL) 0.125 mg Dissolve 1 tablet under the tongue every 4 hours as needed (abdominlal pain). - cholecalciferol, Vitamin D3, (VITAMIN D3) 1,250 mcg (50,000 unit) cap capsule Take 1 capsule by mouth one time a week. - DULoxetine (CYMBALTA) 20 mg capsule Take 1 capsule by mouth once daily. - peppermint oil (IBGARD) 90 mg CECX Take 1 capsule by mouth once daily as needed (INTESTINAL UPSET). 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 Address: [address] [place] [address] Result Comment: YANI TITATIVE HCG NORMAL RANGES Weeks of Gestation (Weeks Since LMP) 3 Weeks (5.8-71.2 mIU/mL) 4 Weeks (9.5-750 mIU/mL) 5 Weeks (217-7138 mIU/mL) 6 Weeks (158-48180 mIU/mL) 7 Weeks (3697-384397 mIU/mL) 8 Weeks (36176-769961 mIU/mL) 9 Weeks (82435-170026 mIU/mL) 10 Weeks (24054-425926 mIU/mL) 12 Weeks (29710-130917 mIU/mL) Referenced to 4th IS of [facility] Performed By: #### 2 1198-7 ####[facility] LABCLIA [id number] [address] [place] B-HCG SerPl-aCncon 4 HCG.beta subunit Qn 1549.0 m[IU]/mL High <5.0 [facility] Comment on above: Order Comment: Speci men Type: BLOOD SPECIMENOrdering Facility: [facility] Address: [address] [place] [address] Result Comment: YANI TITATIVE HCG NORMAL RANGES Weeks of Gestation (Weeks Since LMP) 3 Weeks (5.8-71.2 mIU/mL) 4 Weeks (9.5-750 mIU/mL) 5 Weeks (217-7138 mIU/mL) 6 Weeks (158-53790 mIU/mL) 7 Weeks (3697-070273 mIU/mL) 8 Weeks (26114-888719 mIU/mL) 9 Weeks (12954-988109 mIU/mL) 10 Weeks (14709-295907 mIU/mL) 12 Weeks (17295-551436 mIU/mL) Referenced to 4th IS of [facility] Performed By: #### 2 1198-7 ####[facility] LABORATORYCLIA [id number] [place] [address] [place] B-HCG SerPl-aCncon 4 HCG.beta subunit Qn 417.6 m[IU]/mL High <5.0 M [facility] Comment on above: Order Comment: Speci men Type: BLOOD SPECIMENOrdering Facility: [facility] Address: [address] [place] [address] Result Comment: YANI TITATIVE HCG NORMAL RANGES Weeks of Gestation (Weeks Since LMP) 3 Weeks (5.8-71.2 mIU/mL) 4 Weeks (9.5-750 mIU/mL) 5 Weeks (217-7138 mIU/mL) 6 Weeks (158-10438 mIU/mL) 7 Weeks (3697-509725 mIU/mL) 8 Weeks (70543-944192 mIU/mL) 9 Weeks (10429-542321 mIU/mL) 10 Weeks (50140-596469 mIU/mL) 12 Weeks (41067-801864 mIU/mL) Referenced to 4th IS of [facility] Performed By: #### 2 1198-7 ####[facility] LABORATORYCLIA [id number] [place] [address] [place] ALLIED HEALTHon 08-10-2024 ALLIED HEALTH HNO ID: [id number] Author: DEANNA ONEIL RT(R) Service: Radiology Author Type: Podiatric Medicine Doctor Type: Allied Health Filed: 08/10/2024 07:19 Note Text: Radiology Service Progress Note PATIENT NAME: Rhonda Cohen DATE OF SERVICE: August 10, 2024 TIME: 7:19 AM PATIENT IDENTITY VERIFICATION COMPLETED USING TWO (2) IDENTIFIERS: Name and Date of confirmed by patient verbally and Name and Date of confirmed by identification band. FALL SCREENING: Has the patient had 2 falls in the last year or 1 fall with injury or currently using an Ambulatory Assistive Device (Walker, Cane, Wheelchair, Crutches, etc.)? Emergency Room Patient: Screened in ED PATIENT GENDER DATA: Female. status: : Yes. Internal Quality Check OK. Urinalysis hCG results are as follows: Positive Reference Range: Negative status: NO. PATIENT RELEVANT IMPLANT DATA REVIEWED: Not Applicable PATIENT PRESENTS WITH AN IMPLANTABLE OR ATTACHED CERAMICS TEST ENGINEER: No RADIOLOGY DEPARTMENT: Ultrasound PERIPHERAL IV DATA: Not applicable SIGNED BY: RT Carmen(R) August 10, 2024 7:19 AM Normal [facility] BETA HCG, QUANTITATIVE FOR Cristino Coelho 08-10-2024 HCG.beta subunit Qn 173.2 m[IU]/mL High <5.0 M [facility] Comment on above: Order Comment: Fahad castellanos Type: BLOOD SPECIMENOrdering Facility: [facility] Address: [address] [place] [address] Result Comment: YANI TITATIVE HCG NORMAL RANGES Weeks of Gestation (Weeks Since LMP) 3 Weeks (5.8-71.2 mIU/mL) 4 Weeks (9.5-750 mIU/mL) 5 Weeks (217-7138 mIU/mL) 6 Weeks (158-54246 mIU/mL) 7 Weeks (3697-834956 mIU/mL) 8 Weeks (94056-862740 mIU/mL) 9 Weeks (59023-628425 mIU/mL) 10 Weeks (85553-655076 mIU/mL) 12 Weeks (56726-818491 mIU/mL) Referenced to 4th IS of [facility] Performed By: #### [place], [address]-9, 3040-3 ####[facility] LABORATORYCLIA [id number] [place] [id number] [place] CBC W Auto Differential pane l (Bld)on 08-10-2024 Basophils (Bld) [#/Vol] 0.04 10*3/uL Normal <0.11 [facility] Comment on above: Order Comment: Fahad castellanos Type: BLOOD SPECIMENOrdering Facility: [facility] Address: [address] [place] [address] Performed By: #### 5 7021-8 ####[facility] LABORATORYCLIA [id number] [place] [address] [place] Basophils/100 WBC (Bld) 0.7 % Normal [facility] Comment on above: Order Comment: Speci men Type: BLOOD SPECIMENOrdering Facility: [facility] Address: [address] [place] [address] Performed By: #### 5 7021-8 ####[facility] LABORATORYCLIA [id number] [place] [address] [place] Differential cell count method Nom (Bld) Auto Normal [facility] Comment on above: Order Comment: Speci men Type: BLOOD SPECIMENOrdering Facility: [facility] Address: [address] [place] [address] Performed By: #### 5 7021-8 ####[facility] LABORATORYCLIA [id number] [place] [address] [place] Eosinophils (Bld) [#/Vol] 0.14 10*3/uL Normal <0.46 [facility] Comment on above: Order Comment: Speci men Type: BLOOD SPECIMENOrdering Facility: [facility] Address: [address] [place] [address] Performed By: #### 5 7021-8 ####[facility] LABORATORYCLIA [id number] [address] Eosinophils/100 WBC (Bld) 2.3 % Normal [facility] Comment on above: Order Comment: Speci men Type: BLOOD SPECIMENOrdering Facility: [facility] Address: [address] [place] [address] Performed By: #### 5 7021-8 ####[facility] LABORATORYCLIA [id number] [place] [address] [place] Erythrocyte distribution width (RBC) [Ratio] 12.8 % Normal 11.5-15.0 [facility] Comment on above: Order Comment: Speci men Type: BLOOD SPECIMENOrdering Facility: [facility] Address: [address] [place] [address] Performed By: #### 5 7021-8 ####[facility] LABORATORYCLIA [id number] [place] [address] [place] Hematocrit (Bld) [Volume fraction] 39.7 % Normal 36.0-46.0 [facility] Comment on above: Order Comment: Speci men Type: BLOOD SPECIMENOrdering Facility: [facility] Address: [address] [place] [address] Performed By: #### 5 7021-8 ####[facility] LABORATORYCLIA [id number] [place] [address] [place] Hemoglobin (Bld) [Mass/Vol] 13.0 g/dL Normal 11.5-15.5 [facility] Comment on above: Order Comment: Speci men Type: BLOOD SPECIMENOrdering Facility: [facility] Address: [address] [place] [address] Performed By: #### 5 7021-8 ####[facility] LABORATORYCLIA [id number] [place] [address] [place] Immature granulocytes (Bld) [#/Vol] 10*3/uL Normal <0.10 [facility] Comment on above: Order Comment: Speci men Type: BLOOD SPECIMENOrdering Facility: [facility] Address: [address] [place] [address] Performed By: #### 5 7021-8 ####[facility] LABORATORYCLIA [id number] [address] [place] Immature granulocytes/100 WBC (Bld) 0.2 % Normal [facility] Comment on above: Order Comment: Speci men Type: BLOOD SPECIMENOrdering Facility: [facility] Address: [address] [place] [address] Performed By: #### 5 7021-8 ####[facility] LABORATORYCLIA [id number] [place] [address] [place] Lymphocytes (Bld) [#/Vol] 1.70 10*3/uL Normal 1.00-4.00 [facility] Comment on above: Order Comment: Speci men Type: BLOOD SPECIMENOrdering Facility: [facility] Address: [address] [place] [address] Performed By: #### 5 7021-8 ####[facility] LABORATORYCLIA [id number] [address] [place] Lymphocytes/100 WBC (Bld) 28.1 % Normal [facility] Comment on above: Order Comment: Speci men Type: BLOOD SPECIMENOrdering Facility: [facility] Address: [address] [place] [address] Performed By: #### 5 7021-8 ####[facility] LABORATORYCLIA [id number] [address] [place] MCH (RBC) [Entitic mass] 26.5 pg Normal 26.0-34.0 [facility] Comment on above: Order Comment: Speci men Type: BLOOD SPECIMENOrdering Facility: [facility] Address: [address] [place] [address] Performed By: #### 5 7021-8 ####[facility] LABORATORYCLIA [id number] [address] [place] MCHC (RBC) [Mass/Vol] 32.7 g/dL Normal 30.5-36.0 [facility] Comment on above: Order Comment: Speci men Type: BLOOD SPECIMENOrdering Facility: [facility] Address: [address] [place] [address] Performed By: #### 5 7021-8 ####[facility] LABORATORYCLIA [id number] [address] [place] MCV (RBC) [Entitic vol] 81.0 fL Normal 80.0-100.0 [facility] Comment on above: Order Comment: Speci men Type: BLOOD SPECIMENOrdering Facility: [facility] Address: [address] [place] [address] Performed By: #### 5 7021-8 ####[facility] LABORATORYCLIA [id number] [address] [place] Monocytes (Bld) [#/Vol] 0.73 10*3/uL Normal <0.87 [facility] Comment on above: Order Comment: Speci men Type: BLOOD SPECIMENOrdering Facility: [facility] Address: [address] [place] [address] Performed By: #### 5 7021-8 ####[facility] LABORATORYCLIA [id number] [place] [address] [place] Monocytes/100 WBC (Bld) 12.0 % Normal [facility] Comment on above: Order Comment: Speci men Type: BLOOD SPECIMENOrdering Facility: [facility] Address: [address] [place] [address] Performed By: #### 5 7021-8 ####[facility] LABORATORYCLIA [id number] [place] [address] [place] Neutrophils (Bld) [#/Vol] 3.44 10*3/uL Normal 1.45-7.50 [facility] Comment on above: Order Comment: Speci men Type: BLOOD SPECIMENOrdering Facility: [facility] Address: [address] [place] [address] Performed By: #### 5 7021-8 ####[facility] LABORATORYCLIA [id number] [place] [address] [place] Neutrophils/100 WBC (Bld) 56.7 % Normal [facility] Comment on above: Order Comment: Speci men Type: BLOOD SPECIMENOrdering Facility: [facility] Address: [address] [place] [address] Performed By: #### 5 7021-8 ####[facility] LABORATORYCLIA [id number] [place] [address] [place] Nucleated RBC (Bld) [#/Vol] 10*3/uL Normal <0.01 [facility] Comment on above: Order Comment: Speci men Type: BLOOD SPECIMENOrdering Facility: [facility] Address: [address] [place] [address] Performed By: #### 5 7021-8 ####[facility] LABORATORYCLIA [id number] [place] [address] [place] Nucleated RBC/100 WBC (Bld) [Ratio] 0.0 /100 WBC Normal [facility] Comment on above: Order Comment: Speci men Type: BLOOD SPECIMENOrdering Facility: [facility] Address: [address] [place] [address] Performed By: #### 5 7021-8 ####[facility] LABORATORYCLIA [id number] [address] Platelet mean volume (Bld) [Entitic vol] 10.3 fL Normal 9.0-12.7 [facility] Comment on above: Order Comment: Speci men Type: BLOOD SPECIMENOrdering Facility: [facility] Address: [address] [place] [address] Performed By: #### 5 7021-8 ####[facility] LABORATORYCLIA [id number] [address] [place] Platelets (Bld) [#/Vol] 320 10*3/uL Normal 150-400 [facility] Comment on above: Order Comment: Speci men Type: BLOOD SPECIMENOrdering Facility: [facility] Address: [address] [place] [address] Performed By: #### 5 7021-8 ####[facility] LABORATORYCLIA [id number] [place] [address] [place] RBC (Bld) [#/Vol] 4.90 10*6/uL Normal 3.90-5.20 [facility] Comment on above: Order Comment: Speci men Type: BLOOD SPECIMENOrdering Facility: [facility] Address: [address] [place] [address] Performed By: #### 5 7021-8 ####[facility] LABORATORYCLIA [id number] [address] [place] WBC (Bld) [#/Vol] 6.06 10*3/uL Normal 3.70-11.00 [facility] Comment on above: Order Comment: Speci men Type: BLOOD SPECIMENOrdering Facility: [facility] Address: [address] [place] [address] Performed By: #### 5 7021-8 ####[facility] LABORATORYCLIA [id number] [address] [place] CNPCarina 08-10-2024 CNPN Telephone (OBGWST) RHONDA COHEN ([id number]) 1 F Date Time Provider Department 08/10/24 SHIRA IZQUIERDO OBGWST During your visit today, we recorded the following information about you: Shira Izquierdo APRN.BOOKING SUPERVISOR 08/10/2024 8:41 AM Addendum [facility] RN Coordination Date of Referral: August 10, 2024 Reason for Referral: PUL Primary RN ORTHO Provider: ED Documentation of Patient Contact: Date: Contact Type: Details: Sign: August 10, 2024 Ref Review PUL Rh POS LMP ? [ ] Intro, trend HCG, schedule appt Last contact: HC (08/10) US: (08/10) ?GS x 2 EBr 08/10/2024 Phone Called pt, verified name and . Introduced self and PEAC. LMP- end of jun? Hx of irregular cycles. Unplanned but desired. Reports intermittent pain, cramping feeling, sharp stabbing in middle abdomen. Denies VB. Reviewed SAB/bleeding and ectopic precautions, advised pt to present to the ED if she develops heavy VB saturating a pad in an hour or less for >2 hrs in a row, passing blood clots > or = to the size of a golf ball, and/or severe pain; pt verbalizes understanding. Will haveHCG drawn Thursday and VV@[address] [place] [address] to review plan of care JS Allergies As of Date: 08/10/2024 Noted Allergy Reaction ATARAX (HYDROXYZINE) 06/30/2023 14 - Other: See Comments Comments: Patient has paradoxical effect, she is hyperalert and is up all night. ACETAMINOPHEN 05/27/2022 6 - Diarrhea CHLORHEXIDINE 06/29/2023 2 - Rash Comments: Rash/burning CIPROFLOXACIN 06/29/2023 14 - Other: See Comments Comments: Family history of the allergy CLINDAMYCIN 06/29/2023 10 - Anaphylaxis IBUPROFEN 05/27/2022 6 - Diarrhea LACTOSE 11/02/2021 6 - Diarrhea PEANUT BUTTER FLAVOR 04/29/2023 6 - Diarrhea 8 - GI Upset PENICILLINS 01/08/2019 14 - Other: See Comments Comments: 06/29/23: Extensive family history of multiple antibiotic allergies including penicillins. Report multiple family members having anaphylaxis reactions. RED DYE 07/05/2023 5 - Intolerance TRAMADOL 09/11/2023 14 - Other: See Comments Comments: Blurred vision ZITHROMAX (AZITHROMYCIN) 01/27/2024 6 - Diarrhea Date Reviewed: 08/10/2024 Reviewed by: Terrie Marte RN - Fully Assessed Reason for Visit: [facility] [4090] Primary Visit Diagnosis: of unknown anatomic location [O36.80X0] Order(s):[facility] QUANTITATIVE [SQHCGQT] Order #: [id number] STANDING Prescriptions as of 08/10/2024 - phenazopyridine (PYRIDIUM) 200 mg tablet Take 1 tablet by mouth every 8 hours as needed. - omeprazole (PRILOSEC) 40 mg capsule Take 1 capsule by mouth once daily. - fexofenadine (MELISA) 180 mg tablet Take 1 tablet by mouth four times daily. - gabapentin (NEURONTIN) 300 mg capsule Take 1 capsule by mouth as directed for 60 days. - fluticasone (FLONASE ALLERGY RELIEF) 50 mcg/actuation nasal spray Use 1 [place] in each nostril once daily. - Brompheniramine-Pseu doeph-DM (BROMFED DM) 2-30-10 mg/5 mL syrup Take 5 mL by mouth four times a day as needed. - diphenhydrAMINE (BENADRYL) 25 mg capsule - hyoscyamine sublingual (LEVSIN/SL) 0.125 mg Dissolve 1 tablet under the tongue every 4 hours as needed (abdominlal pain). - cholecalciferol, Vitamin D3, (VITAMIN D3) 1,250 mcg (50,000 unit) cap capsule Take 1 capsule by mouth one time a week. - DULoxetine (CYMBALTA) 20 mg capsule Take 1 capsule by mouth once daily. - peppermint oil (IBGARD) 90 mg CECX Take 1 capsule by mouth once daily as needed (INTESTINAL UPSET). 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 Address: [address] [place] [address] Performed By: #### H CGED, 90173-9, 3040-3 ####[facility] LABORATORYCLIA [id number] [place] [address] [place] ALP [Catalytic activity/Vol] 101 U/L Normal 34-123 [facility] Comment on above: Order Comment: Speci men Type: BLOOD SPECIMENOrdering Facility: [facility] Address: [address] [place] [id number] Performed By: #### H CGED, 45721-2, 3040-3 ####[facility] LABORATORYCLIA [id number] [place] [address] [place] ALT [Catalytic activity/Vol] 12 U/L Normal 7-38 [facility] Comment on above: Order Comment: Speci men Type: BLOOD SPECIMENOrdering Facility: [facility] Address: [address] [place] [address] Performed By: #### Darrell PEDRAZAED, 91872-0, 3040-3 ####[facility] LABORATORYCLIA [id number] [place] [address] [place] Anion gap [Moles/Vol] 17 mmol/L High 8-15 [facility] Comment on above: Order Comment: Speci men Type: BLOOD SPECIMENOrdering Facility: [facility] Address: [address] [facility] [place] [address] Performed By: #### Darrell PEDRAZAED, 29934-8, 3040-3 ####[facility] LABORATORYCLIA [id number] [address] [place] AST [Catalytic activity/Vol] 19 U/L Normal 13-35 [facility] Comment on above: Order Comment: Speci men Type: BLOOD SPECIMENOrdering Facility: [facility] Address: [address] [place] [address] Performed By: #### Darrell PEDRAZAED, 30287-0, 3040-3 ####[facility] LABORATORYCLIA [id number] [place] [address] [place] Bilirubin [Mass/Vol] 1.0 mg/dL Normal 0.2-1.3 [facility] Comment on above: Order Comment: Speci men Type: BLOOD SPECIMENOrdering Facility: [facility] Address: [address] [place] [address] Performed By: #### H CGED, 40331-7, 3040-3 ####[facility] LABORATORYCLIA [id number] [place] [address] [place] Calcium [Mass/Vol] 9.4 mg/dL Normal 8.5-10.2 [facility] Comment on above: Order Comment: Speci men Type: BLOOD SPECIMENOrdering Facility: [facility] Address: [address] [place] [address] Performed By: #### H CGED, 60675-0, 3040-3 ####[facility] LABORATORYCLIA [id number] [place] [address] [place] Chloride [Moles/Vol] 100 mmol/L Normal 98-107 [facility] Comment on above: Order Comment: Speci men Type: BLOOD SPECIMENOrdering Facility: [facility] Address: [address] [place] [address] Performed By: #### H CGED, 42204-5, 3040-3 ####[facility] LABORATORYCLIA [id number] [place] [address] [place] CO2 [Moles/Vol] 19 mmol/L Low 22-30 [facility] Comment on above: Order Comment: Speci men Type: BLOOD SPECIMENOrdering Facility: [facility] Address: [address] [place] [address] Performed By: #### H CGED, 73709-4, 3040-3 ####[facility] LABORATORYCLIA [id number] [address] Creatinine [Mass/Vol] 0.51 mg/dL Low 0.58-0.96 [facility] Comment on above: Order Comment: Speci men Type: BLOOD SPECIMENOrdering Facility: [facility] Address: [address] [place] [address] Performed By: #### H CGED, 54023-0, 3040-3 ####[facility] LABORATORYCLIA [id number] [address] Creatinine and Glomerular filtration rate.predicted panel (S/P/Bld) 136 mL/min/1.73m??? Normal >=60 [facility] Comment on above: Order Comment: Speci men Type: BLOOD SPECIMENOrdering Facility: [facility] Address: [address] [place] [address] Result Comment: Zully mated Glomerular Filtration Rate (eGFR) is calculated using the 2020 CKD-EPI creatinine equation. This equation utilizes serum creatinine, sex, and age as parameters. The creatinine assay has traceable calibration to isotope dilution-mass spectrometry. Refer to KDIGO guidelines for clinical interpretation. In patients with unstable renal function, e.g. those with acute kidney injury, the eGFR may not accurately reflect actual GFR. Performed By: #### H CGED, 49573-3, 0-3 ####[facility] LABORATORYCLIA [id number] [place] [address] [place] Glucose [Mass/Vol] 75 mg/dL Normal 74-99 [facility] Comment on above: Order Comment: Fahad castellanos Type: BLOOD SPECIMENOrdering Facility: [facility] Address: [address] [place] [address] Result Comment: The [place] [employer] (ADA) provides guidance for cutoff values for fasting glucose and random glucose. The ADA defines fasting as no caloric intake for at least 8 hours. Fasting plasma glucose results between 100 to 125 mg/dL indicate increased risk for diabetes (prediabetes). Fasting plasma glucose results greater than or equal to 126 mg/dL meet the criteria for diagnosis of diabetes. In the absence of unequivocal hyperglycemia, results should be confirmed by repeat testing. In a patient with classic symptoms of hyperglycemia or hyperglycemic crisis, random plasma glucose results greater than or equal to 200 mg/dL meet the criteria for diagnosis of diabetes. Reference: Standards of Medical Care in Diabetes 2016, [place] [employer]. Diabetes Care. 2016.39(Suppl 1). Performed By: #### H CGED, 04576-3, 0-3 ####[facility] LABORATORYCLIA [id number] [place] [address] [place] Potassium [Moles/Vol] 3.6 mmol/L Low 3.7-5.1 [facility] Comment on above: Order Comment: Fahad castellanos Type: BLOOD SPECIMENOrdering Facility: [facility] Address: [address] [id number] Performed By: #### H CGED, 57269-6, 3040-3 ####[facility] LABORATORYCLIA [id number] [place] [address] [place] Protein [Mass/Vol] 7.8 g/dL Normal 6.3-8.0 [facility] Comment on above: Order Comment: Fahad castellanos Type: BLOOD SPECIMENOrdering Facility: [facility] Address: [address] [place] [address] Performed By: #### H CGED, 72349-1, 3040-3 ####[facility] LABORATORYCLIA [id number] [place] [address] [place] [address] [facility] Sodium [Moles/Vol] 136 mmol/L Normal 136-144 [facility] Comment on above: Order Comment: Speci men Type: BLOOD SPECIMENOrdering Facility: [facility] Address: [address] [place] [address] Performed By: #### H CGED, 19463-3, 3040-3 ####MCM[facility] LABORATORYCLIA [id number] [address] [place] Urea nitrogen [Mass/Vol] 12 mg/dL Normal 7-21 [facility] Comment on above: Order Comment: Speci men Type: BLOOD SPECIMENOrdering Facility: [facility] Address: [address] [place] [address] Performed By: #### H CGED, 21381-6, 3040-3 ####MCM[facility] LABORATORYCLIA [id number] [address] [id number] [facility] ED NOTEon 08-10-2024 ED NOTE HNO ID: [id number] Author: SAUL LANDA RN Service: ? Author Type: Registered Nurse Type: ED Notes Filed: 08/10/2024 09:22 Note Text: Pt amb from er in nad w mom. [facility] ED NOTE HNO ID: [id number] Author: SAUL LANDA RN Service: ? Author Type: Registered Nurse Type: ED Notes Filed: 08/10/2024 09:03 Note Text: Food Safety Specialist reported that he will call her with either a moved up for Thursday appt or the address for a clinic. Pt sts was told needs to have her labs repeated 48 hr. (Hcg). [facility] ED NOTE HNO ID: [id number] Author: SAUL LANDA RN Service: ? Author Type: Registered Nurse Type: ED Notes Filed: 08/10/2024 07:54 Note Text: Assumed care of pt from adi rn w report received. [facility] ED NOTE HNO ID: [id number] Author: EMILY GORDILLO RN Service: ? Author Type: Registered Nurse Type: ED Notes Filed: 08/10/2024 07:14 Note Text: Report given to Gina BLOCK [facility] ED PROV NOTEon 08-10-2024 ED PROV NOTE HNO ID: [id number] Author: YESSY DELEON MD Service: ? Author Type: Physician Type: ED Provider Notes Filed: 08/10/2024 08:49 Note Text: ED CONTINUATION OF CARE NOTE Code Status: Prior Assumed care from: Dr. Herrera Presentation / Findings / Interventions / Plan / Items to Follow Up: Patient had beta-hCG that was 173. Patient is O+. Ultrasound US PREG TRANSABD <14 WEEKS LTD Final Result IMPRESSION: Possible two very early intrauterine gestational sacs without yolk sac or pole. Recommend close clinical follow-up, correlation with serial beta-hCG and follow-up ultrasound to determine viability of early . Pet Sitter: DICK Transcribe Date/Time: Aug 10 2024 7:39A Dictated by : AISHA SOLARES DO This examination was interpreted and the report reviewed and electronically signed by: AISHA SOLARES DO on Aug 10 2024 7:56AM EST US PREG TRANSVAG <14 WEEKS Final Result IMPRESSION: Possible two very early intrauterine gestational sacs without yolk sac or pole. Recommend close clinical follow-up, correlation with serial beta-hCG and follow-up ultrasound to determine viability of early . Pet Sitter: DICK Transcribe Date/Time: Aug 10 2024 7:39A Dictated by : AISHA SOLARES DO This examination was interpreted and the report reviewed and electronically signed by: AISHA SOLARES DO on Aug 10 2024 7:56AM EST This was discussed with the patient and mother. They are aware. I discussed with OB Dr. Huynh. She advised an hCG level in 48 hours patient is made aware and the order is placed. She has an appointment on Thursday which is recommended okay for follow-up. We did put a appointment for the [facility] to be done for this close follow-up as well she is advised to follow-up on Thursday if able. She is advised to return with any worsening symptoms worsening abdominal pain vomiting fevers or other concerns. Patient is discharged home in stable condition ED Course as of 08/10/24 0837 Others' Documentation Wed Aug 10, 2024 0541 CBC + DIFF: WBC 6.06 RBC 4.90 Hemoglobin 13.0 Hematocrit 39.7 MCV 81.0 MCH 26.5 MCHC 32.7 RDW-CV 12.8 Platelet Count 320 MPV 10.3 Neut% 56.7 Abs Neut (ANC) 3.44 Lymph% 28.1 Abs Lymph 1.70 [place]% 12.0 Abs [place] 0.73 Eosin% 2.3 Abs Eosin 0.14 Baso% 0.7 Abs Baso 0.04 Immature Gran % 0.2 IMMATURE GRANS (ABS) <0.03 NRBC 0.0 Absolute nRBC <0.01 DTYPE Auto No leukocytosis or anemia [KS] 0604 Beta HCG, Quantitative For ED Use(!): 173.2 [KS] 0615 Lipase: 22 [KS] 0615 COMP METABOLIC PANEL (BMP+LFT)(!): Protein, Total 7.8 Albumin 4.6 Calcium 9.4 Bilirubin, Total 1.0 Alkaline Phosphatase 101 AST 19 ALT 12 Glucose 75 BUN 12 Creatinine 0.51(!) Sodium 136 Potassium 3.6(!) Chloride 100 CO2 19(!) Anion Gap 17(!) eGFR 136 Mild hypoK, Na wnl [KS] 0630 Lactate: 1.2 [KS] 0704 HCG Qualitative, Urine(!): Positive [KS] ED Course User Index [KS] Yelena Herrera DO Clinical Impressions as of 08/10/24 0837 Generalized abdominal pain Tachycardia Nausea Less than 8 weeks gestation of Medical Decision Making SIGNATURE: Yessy Deleon MD PATIENT NAME: Rhonda Cohen DATE: August 10, 2024 TIME: 8:37 AM PAGER/CONTACT #: YESSY DELEON 08/10/24 0849 Normal [facility] ED PROV NOTE HNO ID: [id number] Author: YELENA HERRERA DO Service: Emergency Medicine Author Type: Physician Type: ED Provider Notes Filed: 08/10/2024 07:42 Note Text: ED Provider Note Patient Name: Rhonda Cohen : 2005 SERVICE DATE: 08/10/24 History Patient presents with: Abdominal Pain: Nausea and lower middle abdomen pain started yesterday, took test yesterday at home, no bleeding now HPI 19-year-old female no significant past medical history presents today for abdominal pain. Patient states that it is in her suprapubic region. Denies any dysuria, hematuria. Patient states that she did have home test yesterday that were positive. Patient denies any vaginal bleeding, vomiting. Does endorse nausea. Denies any chest pain, shortness of breath, syncope, LOC, fever, chills, cough, URI. Mother is at bedside states that patient is otherwise at mental status baseline. Patient is unsure of her last menstrual period. States that her periods are irregular. Patient states that she is never been before. Patient denies any concern for STDs. Denies any changes to vaginal discharge. PAST MEDICAL HISTORY Diagnosis Date Anxiety and depression History of IBS PAST SURGICAL HISTORY Procedure Laterality Date EGD W/O BRSH SPEC VARICIES INJ 07/06/2023 FAMILY HISTORY Problem Relation Age of Onset Fibromyalgia Mother Cervical Cancer Mother other (diverticulitis) Mother Kidney Disease Father No Known Problems Sister Kidney stones Brother No Known Problems Brother No Known Problems Brother Bipolar disorder Maternal Grandmother other (endometriosis) Maternal Grandmother Heart Maternal Grandfather No Known Problems Paternal Grandmother Heart Attack Paternal Grandfather other (endometriosis) Other Social History Tobacco Use Smoking status: Never Passive exposure: Never Smokeless tobacco: Never Vaping Use Vaping status: Never Used Substance and Sexual Activity Alcohol use: Never Drug use: Never Sexual activity: Yes control/protection: None, Pill ALLERGIES Allergen Reactions Atarax [Hydroxyzine] Other: See Comments Patient has paradoxical effect, she is hyperalert and is up all night. Acetaminophen Diarrhea Chlorhexidine Rash Rash/burning Ciprofloxacin Other: See Comments Family history of the allergy Clindamycin Anaphylaxis Ibuprofen Diarrhea Lactose Diarrhea Peanut Butter Flavor Diarrhea, GI Upset Penicillins Other: See Comments 06/29/23: Extensive family history of multiple antibiotic allergies including penicillins. Report multiple family members having anaphylaxis reactions. Red Dye Intolerance Tramadol Other: See Comments Blurred vision Zithromax [Azithrom* Diarrhea Review of Systems Constitutional: Negative for fatigue and fever. HENT: Negative for congestion. Respiratory: Negative for cough and shortness of breath. Cardiovascular: Negative for chest pain and leg swelling. Gastrointestinal: Positive for abdominal pain and nausea. Negative for diarrhea and vomiting. Genitourinary: Negative for dysuria. Physical Exam Vitals [12/04/24 0459] BP Pulse Temp Temp src Resp SpO2 Weight Height 124/69 (!) 111 36.9 ?C (98.5 ?F) Oral 22 99 % 62 kg (136 lb 11 oz) 1.6 m (5' 3) Physical Exam Constitutional: Appearance: She is not ill-appearing, toxic-appearing or diaphoretic. Comments: Patient crying on exam. Appears in moderate distress. HENT: Head: Normocephalic. Nose: Nose normal. Mouth/Throat: Mouth: Mucous membranes are moist. Eyes: Pupils: Pupils are equal, round, and reactive to light. Cardiovascular: Rate and Rhythm: Normal rate and regular rhythm. Pulses: Normal pulses. Pulmonary: Effort: Pulmonary effort is normal. No respiratory distress. Breath sounds: No wheezing. Comments: Soft in all quadrants. Nontender to palpation. Abdominal: Palpations: Abdomen is soft. Tenderness: There is no abdominal tenderness. There is no guarding. Musculoskeletal: Right lower leg: No edema. Left lower leg: No edema. Skin: Capillary Refill: Capillary refill takes less than 2 seconds. Neurological: Mental Status: She is alert. Comments: Alert, answer questions properly. Moving all extremities equal strength. Diagnostic Testing ED Labs Ordered and Reviewed COMPREHENSIVE METABOLIC PANEL - Abnormal; Notable for the following components: Result Value Ref Range Creatinine 0.51 (*) 0.58 - 0.96 mg/dL Potassium 3.6 (*) 3.7 - 5.1 mmol/L CO2 19 (*) 22 - 30 mmol/L Anion Gap 17 (*) 8 - 15 mmol/L All other components within normal limits URINALYSIS WITH MICROSCOPIC, REFLEX CULTURE - Abnormal; Notable for the following components: Ketones, Urine 3+ (*) Negative Specific [place], Ur >=1.030 (*) 1.005 - 1.030 Hemoglobin/Blood,Ur 3+ (*) Negative Protein, Urine Trace (*) Negative RBC, Urine 6-10 /HPF (*) 0-3 /HPF All other components within normal limits (more content not included)... Normal [facility] HCG Preg Ur Qlon 08-10-2024 HCG ( test) Ql (U) Positive Abnormal Negative [facility] Comment on above: Order Comment: Speci men Type: URINE SPECIMENOrdering Facility: [facility] Address: [address] [place] [address] Result Comment: This test is intended to aid in the early detection of . Very dilute urine samples, as indicated by a low specific gravity, may not contain market survey representative levels of hCG. This test detects intact hCG only. This test does not reliably detect hCG degradation products, including free-beta subunit and beta-core fragment. Therefore, this test may show reduced reactivity in urine after 8 weeks gestation. A number of conditions other than , including trophoblastic disease and certain non-trophoblastic neoplasms cause elevated levels of hCG. As with any assay employing mouse antibodies, the possibility exists for interference by human anti-mouse antibodies (HAMA) in the specimen. The test provides a presumptive diagnosis for . Performed By: #### 2 106-3 ####[facility] LABORATORYCLIA [id number] [address] [place] Lipase SerPl-cCncon 08-10-20 24 Lipase [Catalytic activity/Vol] 22 U/L Normal [facility] Comment on above: Order Comment: Speci men Type: BLOOD SPECIMENOrdering Facility: [facility] Address: [address] [place] [address] Performed By: #### H CGED, 87337-7, 3040-3 ####[facility] LABORATORYCLIA [id number] [place] [address] [place] SEPSIS LACTATE W/ REFLEX (IN ITIAL)on 08-10-2024 Lactate [Moles/Vol] 1.2 mmol/L Normal 0.5-2.0 [facility] Comment on above: Order Comment: Speci men Type: BLOOD SPECIMENOrdering Facility: [facility] Address: [address] [place] [address] Performed By: #### S LACTR ####[facility] LABORATORYCLIA [id number] [address] [place] TYPE + SCREEN PRENATALon ABO A Normal [facility] Comment on above: Order Comment: Speci men Type: BLOOD SPECIMENOrdering Facility: [facility] Address: [address] [place] [address] Performed By: #### T SPN ####[facility] BLOOD BANKCLIA [id number] [address] Rh Nom (Bld) Positive Normal [facility] Comment on above: Order Comment: Speci men Type: BLOOD SPECIMENOrdering Facility: [facility] Address: [address] [place] [address] Performed By: #### T SPN ####[facility] BLOOD BANKIA [id number] [address] TYPE AND SCREEN EXPIRATION 08/13/2024 23:59 Normal [facility] Comment on above: Order Comment: Speci men Type: BLOOD SPECIMENOrdering Facility: 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 Pelvic pain: yes Vaginal bleeding: Unknown Menstrual status: LMP unknown Quantitative beta-hC.2 TECHNIQUE: Sonography of the pelvis was performed by transabdominal and transvaginal techniques. Images were obtained and stored in a permanent archive. MQ: USOB1_1 COMPARISON: None. RESULT: Uterus: - Orientation: Anteverted - Size: 7.9 x 4.2 x 5.4 cm - Myometrium: homogeneous echogenicity - Cervix: 4.7cm, closed with no funneling Gestation: - Intrauterine gestational sac: Two eccentrically located cystic structures within the endometrium with intradecidual sign may possibly represent very early intrauterine gestational sacs: Possible gestational sac A: - Mean Sac Diameter: 0.3 cm, corresponding gestational age 4 week 6 days - Yolk sac: Not seen - Embryo: Not seen Possible gestational sac B: - Mean Sac Diameter: 0.3 cm, corresponding gestational age 4 week 6 days - Yolk sac: Not seen - Embryo: Not seen Right ovary: - Size : 4.7 x 2.4 x 3.1 cm - Normal sonographic appearance with physiologic follicles. Left ovary: - Size: 3.2 x 1.9 x 2.4 cm - Normal sonographic appearance with physiologic follicles. Pelvis free fluid: None. IMPRESSION: Possible two very early intrauterine gestational sacs without yolk sac or pole. Recommend close clinical follow-up, correlation with serial beta-hCG and follow-up ultrasound to determine viability of early . 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 Pelvic pain: yes Vaginal bleeding: Unknown Menstrual status: LMP unknown Quantitative beta-hC.2 TECHNIQUE: Sonography of the pelvis was performed by transabdominal and transvaginal techniques. Images were obtained and stored in a permanent archive. MQ: USOB1_1 COMPARISON: None. RESULT: Uterus: - Orientation: Anteverted - Size: 7.9 x 4.2 x 5.4 cm - Myometrium: homogeneous echogenicity - Cervix: 4.7cm, closed with no funneling Gestation: - Intrauterine gestational sac: Two eccentrically located cystic structures within the endometrium with intradecidual sign may possibly represent very early intrauterine gestational sacs: Possible gestational sac A: - Mean Sac Diameter: 0.3 cm, corresponding gestational age 4 week 6 days - Yolk sac: Not seen - Embryo: Not seen Possible gestational sac B: - Mean Sac Diameter: 0.3 cm, corresponding gestational age 4 week 6 days - Yolk sac: Not seen - Embryo: Not seen Right ovary: - Size : 4.7 x 2.4 x 3.1 cm - Normal sonographic appearance with physiologic follicles. Left ovary: - Size: 3.2 x 1.9 x 2.4 cm - Normal sonographic appearance with physiologic follicles. Pelvis free fluid: None. IMPRESSION: Possible two very early intrauterine gestational sacs without yolk sac or pole. Recommend close clinical follow-up, correlation with serial beta-hCG and follow-up ultrasound to determine viability of early . Pet Sitter: PSCAlissa Transcribe Date/Time: Aug 10 2024 7:39A Dictated by : AISHA SOLARES DO This examination was interpreted and the report reviewed and electronically signed by: AISHA SOLARES DO on Aug 10 2024 7:56AM EST [id number] Normal [facility] Urinalysis complete panel (U )on 08-10-2024 Bilirubin Ql (U) Negative Normal Negative [facility] Comment on above: Order Comment: Speci men Type: URINE SPECIMENOrdering Facility: [facility] Address: [address] [place] [address] Performed By: #### 2 4356-8 ####[facility] OHIOIA [id number] [address] Clarity (Unsp spec) Clear Normal Clear [facility] Comment on above: Order Comment: Speci men Type: URINE SPECIMENOrdering Facility: [facility] Address: [address] [place] [address] Performed By: #### 2 4356-8 ####UVALDA LABORATORYIA [id number] [address] Color (U) Yellow Normal Yellow [facility] Comment on above: Order Comment: Speci men Type: URINE SPECIMENOrdering Facility: [facility] Address: [address] [place] [address] Performed By: #### 2 4356-8 ####[facility] LABORATORYCLIA [id number] [address] [place] Epithelial cells LM.HPF (Urine sed) [#/Area] Moderate Normal [facility] Comment on above: Order Comment: Speci men Type: URINE SPECIMENOrdering Facility: [facility] Address: [address] [place] [address] Performed By: #### 2 4356-8 ####MCM[facility] LABORATORYCLIA [id number] [address] [place] Glucose Test strip (U) [Mass/Vol] Negative Normal Negative [facility] Comment on above: Order Comment: Speci men Type: URINE SPECIMENOrdering Facility: [facility] Address: [address] [place] [address] Performed By: #### 2 4356-8 ####MCM[facility] LABORATORYCLIA [id number] [address] [place] Hemoglobin Ql (U) 3+ Abnormal Negative [facility] Comment on above: Order Comment: Speci men Type: URINE SPECIMENOrdering Facility: [facility] Address: [address] [place] [address] Performed By: #### 2 4356-8 ####MCM[facility] LABORATORYCLIA [id number] [place] [address] [place] Ketones Ql (U) 3+ Abnormal Negative [facility] Comment on above: Order Comment: Speci men Type: URINE SPECIMENOrdering Facility: [facility] Address: [address] [place] [address] Performed By: #### 2 4356-8 ####MCM[facility] LABORATORYCLIA [id number] [address] Leukocyte esterase Test strip Ql (U) Negative Normal Negative [facility] Comment on above: Order Comment: Speci men Type: URINE SPECIMENOrdering Facility: [facility] Address: [address] [place] [address] Performed By: #### 2 4356-8 ####MCM[facility] LABORATORYCLIA [id number] [place] [address] [place] Nitrite Ql (U) Negative Normal Negative [facility] Comment on above: Order Comment: Speci men Type: URINE SPECIMENOrdering Facility: [facility] Address: [address] [place] [address] Performed By: #### 2 4356-8 ####MCM[facility] LABORATORYCLIA [id number] [address] pH (U) 6.0 [pH] Normal 5.0-8.0 [facility] Comment on above: Order Comment: Speci men Type: URINE SPECIMENOrdering Facility: [facility] Address: [address] [place] [address] Performed By: #### 2 4356-8 ####MCM[facility] LABORATORYCLIA [id number] [place] [address] [place] Protein (U) [Mass/Vol] Trace Abnormal Negative [facility] Comment on above: Order Comment: Speci men Type: URINE SPECIMENOrdering Facility: [facility] Address: [address] [place] [address] Performed By: #### 2 4356-8 ####U[facility] LABORATORYCLIA [id number] [place] [address] [place] [facility] RBC LM.HPF (Urine sed) [#/Area] 6-10 /HPF Abnormal 0-3 /HPF [facility] Comment on above: Order Comment: Speci men Type: URINE SPECIMENOrdering Facility: [facility] Address: [address] [place] [address] Performed By: #### 2 4356-8 ####U[facility] LABORATORYCLIA [id number] [address] [place] Specific gravity (U) [Rel density] >=1.030 High 1.005-1.030 [facility] Comment on above: Order Comment: Speci men Type: URINE SPECIMENOrdering Facility: [facility] Address: [address] [place] [address] Performed By: #### 2 4356-8 ####MCM[facility] LABORATORYCLIA [id number] [address] Urobilinogen Ql (U) 0.2 EU/dL Normal 0.2-1.0 EU/dL [facility] Comment on above: Order Comment: Speci men Type: URINE SPECIMENOrdering Facility: [facility] Address: [address] [place] [address] Performed By: #### 2 4356-8 ####MCMILL[facility] LABORATORYCLIA [id number] [place] [address] [place] WBC LM.HPF (Urine sed) [#/Area] 0-5 /HPF Normal 0-5 /HPF [facility] Comment on above: Order Comment: Speci men Type: URINE SPECIMENOrdering Facility: [facility] Address: [address] [place] [address] Performed By: #### 2 4356-8 ####UVAL[facility] LABORATORYCLIA [id number] [place] [address] [place] BACTERIAL VAGINOSIS NAATon 1 09-29-2023 Lactobacillus crispatus+gasseri+jense jona + Gardnerella vaginalis + Atopobium vaginae rRNA FAVIOLA+probe Ql (Vag fld) Not detected Normal Not detected [facility] Comment on above: Order Comment: Speci men Type: SWABOrdering Facility: [facility] Address: [address] [place] [address] Performed By: #### Alissa MEDELLIN CVTV ####[facility] LABCLIA [id number] [place] [address] [place] Bacteria Ur Culton 4 Bacteria identified Cx Nom (U) ORGANISM ID: 1 50,000-<100,000 CFU/ml Escherichia coli ORGANISM ID: 1 (ESCHERICHIA COLI) ANTIBIOTIC INTERPRETATION ANGELES STATUS REFERENCE RANGE Ampicillin S 8 F Susceptible <=8 , Intermediate >8 , Resistant >16 Cefazolin S <=4 F Susceptible 0-16 , Intermediate <0 or >16 , Resistant >16 For uncomplicated urinary tract infections, cefazolin results can be used to predict susceptibility or resistance to cephalexin. Ceftriaxone S <=1 F Susceptible <=1 , Intermediate >1 , Resistant >=4 Cefepime S <=1 F Susceptible <=2 , Susceptible-Dose Dependent >2 , Resistant >=16 Ertapenem S <=0.5 F Susceptible <=0.5 , Intermediate >.5 , Resistant >1 Meropenem S <=0.25 F Susceptible <=1 , Intermediate >1 , Resistant >2 Ampicillin/Sulbact S 4 F Susceptible <=8 , Intermediate >8 , Resistant >16 Piperacillin/Tazobac S <=4 F Susceptible <16 , Susceptible-Dose Dependent >=16 , Resistant >=32 Gentamicin S <=1 F Susceptible <=2 , Intermediate >2 , Resistant >=8 Tobramycin S <=1 F Susceptible <4 , Intermediate >=4 , Resistant >=8 Trimeth sulfameth S <=20 F Susceptible <=40 , Resistant >40 Ciprofloxacin S <=0.25 F Susceptible <0.5 , Intermediate >=.5 , Resistant >=1 Nitrofurantoin S <=16 F Susceptible <=32 , Intermediate >32 , Resistant >64 Abnormal [facility] Comment on above: Performed By: #### 6 30-4 ####[facility] LABCLIA [id number] [place] [address] [place] KANG/TRICHOMONAS NAATon 1 09-29-2023 C. glabrata RNA FAVIOLA+probe Ql (Vag fld) Not detected Normal Not detected [facility] Comment on above: Order Comment: Speci men Type: SWABOrdering Facility: [facility] Address: [address] [place] [address] Performed By: #### B REBECCA MEDELLINV ####[facility] LABCLIA [id number] [place] [address] [place] Kang sp DNA FAVIOLA+probe Ql (Vag fld) Detected Abnormal Not detected [facility] Comment on above: Order Comment: Speci men Type: SWABOrdering Facility: [facility] Address: [address] [place] [address] Result Comment: The Kang species group target includes C. albicans, C. tropicalis, C. parapsilosis, and C. dubliniensis. Performed By: #### B VAMP, CVTV ####[facility] LABIA [id number] [address] [place] T. vaginalis DNA FAVIOLA+probe Ql (Unsp spec) Not detected Normal Not detected [facility] Comment on above: Order Comment: Speci men Type: SWABOrdering Facility: [facility] Address: [address] [place] [address] Performed By: #### B VAMP, CVTV ####[facility] LABIA [id number] [address] [place] CNOVon 07-30-2024 CNOV Office Visit (WALKWA) RHONDA COHEN ([id number]) 1 F Date Time Provider Department 07/30/24 10:40 AM DU TOLEDO During your visit today, we recorded the following information about you: Temperature Pulse Respiration Blood pressure 97.7 degrees 95/minute 18/minute 113/79 Weight Height 62.9 kg 1.626 m Du Toledo APRN.CNP 07/30/2024 12:07 PM Signed This note was created using Begunriter. Subjective Rhonda Cohen is a 19 year old female. HPI by patient: Rhonda is a 19 year old presenting to the office with the complaint of abdominal pain. Also having pain with urination, odor, and grequency. Not sure if she has the flu, UTI or vaginal infection. Was seen a few days ago and has been waiting on culture results. Denies any other concerns Covid Immunization Dates Overdue - Covid-19 Vaccine ( season) Never done No completion, postpone, frequency change, or communication history exists for this topic. ALLERGIES Atarax [Hydroxyzine] Other: See Comments Comment:Patient has paradoxical effect, she is hyperalert and is up all night. Acetaminophen Diarrhea Chlorhexidine Rash Comment:Rash/burning Ciprofloxacin Other: See Comments Comment:Family history of the allergy Clindamycin Anaphylaxis Ibuprofen Diarrhea Lactose Diarrhea Peanut Butter Flavor Diarrhea, GI Upset Penicillins Other: See Comments Comment:06/29/23: Extensive family history of multiple antibiotic allergies including penicillins. Report multiple family members having anaphylaxis reactions. Red Dye Intolerance Tramadol Other: See Comments Comment:Blurred vision Zithromax [Azithrom* Diarrhea Family History Reviewed Including Cardiac Diseases, Psychiatric Diseases, AND Substance Abuse Problem: Fibromyalgia Relation: Mother Age of Onset: (Not Specified) Problem: Cervical Cancer Relation: Mother Age of Onset: (Not Specified) Problem: other (diverticulitis) Relation: Mother Age of Onset: (Not Specified) Problem: Kidney Disease Relation: Father Age of Onset: (Not Specified) Problem: No Known Problems Relation: Sister Age of Onset: (Not Specified) Problem: Kidney stones Relation: Brother Age of Onset: (Not Specified) Problem: No Known Problems Relation: Brother Age of Onset: (Not Specified) Problem: No Known Problems Relation: Brother Age of Onset: (Not Specified) Problem: Bipolar disorder Relation: Maternal Grandmother Age of Onset: (Not Specified) Problem: other (endometriosis) Relation: Maternal Grandmother Age of Onset: (Not Specified) Problem: Heart Relation: Maternal Grandfather Age of Onset: (Not Specified) Problem: No Known Problems Relation: Paternal Grandmother Age of Onset: (Not Specified) Problem: Heart Attack Relation: Paternal Grandfather Age of Onset: (Not Specified) Problem: other (endometriosis) Relation: Other Age of Onset: (Not Specified) Social History Tobacco Use Smoking status: Never Passive exposure: Never Smokeless tobacco: Never Vaping Use Vaping status: Never Used Alcohol use: Never Drug use: Never Review of Systems Constitutional: Negative for chills and fever. Gastrointestinal: Positive for abdominal pain. Negative for nausea and vomiting. Genitourinary: Positive for dysuria, frequency and pelvic pain. Negative for flank pain, hematuria, urgency and vaginal discharge. Allergic/Immunologic : Negative for immunocompromised state. Objective Resp 18 Ht 162.6 cm (5' 4) Wt 62.9 kg (138 lb 12.5 oz) LMP 12/03/2023 (Exact Date) BMI 23.82 kg/m? Physical Exam Vitals and nursing note reviewed. Constitutional: Appearance: She is well-developed. Cardiovascular: Rate and Rhythm: Normal rate and regular rhythm. Heart sounds: Normal heart sounds. Pulmonary: Effort: Pulmonary effort is normal. Breath sounds: Normal breath sounds. Abdominal: General: Bowel sounds are normal. Palpations: Abdomen is soft. Tenderness: There is no abdominal tenderness. Skin: General: Skin is warm and dry. Neurological: Mental Status: She is alert and oriented to person, place, and time. Assessment and Plan ASSESSMENT/PLAN: 1. Abdominal pain, unspecified abdominal location - ICD9: 789.00, ICD10: R10.9 (primary diagnosis) - COVID AND INFLUENZA A/B AND RSV PCR, ROUTINE - BACTERIAL VAGINOSIS NAAT - KANG/TRICHOMONAS NAAT - URINE CULTURE 2. Recurrent UTI (urinary tract infection) - ICD9: 599.0, ICD10: N39.0 acute - Patient education for prevention given - Antibiotic ready at pharm from yesterday Du Toledo APRN.CNP Medical Decision Making: Problems: Moderate: New problem with uncertain prognosis Risk: Moderate: Drug management Medical Decision Making Level: 4 - Moderate Du Toledo APRN.CNP 07/30/2024 11:44 AM Addendum -Increase fluids. Focus on clears. -Decrease sugary (more content not included)... Normal [facility] COVID AND INFLUENZA A/B AND RSV PCR, ROUTINEon 07-30-2024 SARS-CoV-2 (COVID-19) RNA FAVIOLA+probe Ql (Unsp spec) SARS-COV-2 (AGENT OF COVID-19) RNA: Not detected INFLUENZA A RNA: Not detected INFLUENZA B RNA: Not detected RESPIRATORY SYNCYTIAL VIRUS (RSV) RNA: Not detected Normal [facility] Comment on above: Performed By: #### C VFLRS ####[facility] LABCLIA [id number] [place] [address] [place] UA DIP, URINE (POC)on 2023 BILIRUBIN UA (POCT) Negative Negative [facility] CLARITY UA (POCT) Cloudy [facility] COLOR UA (POCT) Dark yellow [facility] GLUCOSE UA (POCT) Negative Negative mg/dL [facility] Hemoglobin Ql (U) Moderate Abnormal Negative [facility] Interpretation and review of laboratory results Abnormal [facility] KETONE UA (POCT) 80 mg/dL Abnormal Negative [facility] LEUKOCYTES UA (POCT) Small Abnormal Negative [facility] NITRITE UA (POCT) Positive Abnormal Negative [facility] PH UA (POCT) 5.5 4.5 - 8.0 [facility] Protein Ql (U) 30 mg/dL Abnormal Negative [facility] SPECIFIC GRAVITY UA (POCT) >=1.030 1.005 - 1.030 [facility] UROBILINOGEN UA (POCT) 0.2 Normal E.U./d L [facility] Location:[facility], [address] [place] [address], [address] [place] [address] [facility] JANINA Telephone (ADRIANA) RHONDA COHEN ([id number]) 1 F Date Time Provider Department 07/29/24 DU TOLEDO During your visit today, we recorded the following information about you: Du Toledo APRN.CNP 07/29/2024 12:41 PM Signed Macrobid sent to [facility] [email or web address] As of Date: 07/29/2024 Noted Allergy Reaction ATARAX (HYDROXYZINE) 06/30/2023 14 - Other: See Comments Comments: Patient has paradoxical effect, she is hyperalert and is up all night. ACETAMINOPHEN 05/27/2022 6 - Diarrhea CHLORHEXIDINE 06/29/2023 2 - Rash Comments: Rash/burning CIPROFLOXACIN 06/29/2023 14 - Other: See Comments Comments: Family history of the allergy CLINDAMYCIN 06/29/2023 10 - Anaphylaxis IBUPROFEN 05/27/2022 6 - Diarrhea LACTOSE 11/02/2021 6 - Diarrhea PEANUT BUTTER FLAVOR 04/29/2023 6 - Diarrhea 8 - GI Upset PENICILLINS 01/08/2019 14 - Other: See Comments Comments: 06/29/23: Extensive family history of multiple antibiotic allergies including penicillins. Report multiple family members having anaphylaxis reactions. RED DYE 07/05/2023 5 - Intolerance TRAMADOL 09/11/2023 14 - Other: See Comments Comments: Blurred vision ZITHROMAX (AZITHROMYCIN) 01/27/2024 6 - Diarrhea Date Reviewed: 07/27/2024 Reviewed by: Yanci Lewis APRN.BOOKING SUPERVISOR - Fully Assessed Primary Visit Diagnosis:Acute cystitis without hematuria [N30.00] Order(s):nitrofurant oin monohydrate and macrocrystal (MACROBID) 100 mg capsuleTake 1 capsule by mouth two times a day for 5 days.Disp: 10 capsuleRfl: 0 Prescriptions as of 07/29/2024 - nitrofurantoin monohydrate and macrocrystal (MACROBID) 100 mg capsule Take 1 capsule by mouth two times a day for 5 days. - phenazopyridine (PYRIDIUM) 200 mg tablet Take 1 tablet by mouth every 8 hours as needed. - omeprazole (PRILOSEC) 40 mg capsule Take 1 capsule by mouth once daily. - fexofenadine (MELISA) 180 mg tablet Take 1 tablet by mouth four times daily. - gabapentin (NEURONTIN) 300 mg capsule Take 1 capsule by mouth as directed for 60 days. - fluticasone (FLONASE ALLERGY RELIEF) 50 mcg/actuation nasal spray Use 1 [place] in each nostril once daily. - Brompheniramine-Pseu doeph-DM (BROMFED DM) 2-30-10 mg/5 mL syrup Take 5 mL by mouth four times a day as needed. - diphenhydrAMINE (BENADRYL) 25 mg capsule - hyoscyamine sublingual (LEVSIN/SL) 0.125 mg Dissolve 1 tablet under the tongue every 4 hours as needed (abdominlal pain). - cholecalciferol, Vitamin D3, (VITAMIN D3) 1,250 mcg (50,000 unit) cap capsule Take 1 capsule by mouth one time a week. - DULoxetine (CYMBALTA) 20 mg capsule Take 1 capsule by mouth once daily. - peppermint oil (IBGARD) 90 mg CECX Take 1 capsule by mouth once daily as needed (INTESTINAL UPSET). 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 Encounter Status:Closed by DU TOLEDO on 07/29/24 Normal [facility] Bacteria Ur Culton 4 Bacteria identified Cx Nom (U) ORGANISM ID: 1 50,000-<100,000 CFU/ml Escherichia coli ORGANISM ID: 2 50,000-<100,000 CFU/ml Klebsiella pneumoniae ORGANISM ID: 1 (ESCHERICHIA COLI) ANTIBIOTIC INTERPRETATION ANGELES STATUS REFERENCE RANGE Ampicillin S 8 F Susceptible <=8 , Intermediate >8 , Resistant >16 Cefazolin S <=4 F Susceptible 0-16 , Intermediate <0 or >16 , Resistant >16 For uncomplicated urinary tract infections, cefazolin results can be used to predict susceptibility or resistance to cephalexin. Ceftriaxone S <=1 F Susceptible <=1 , Intermediate >1 , Resistant >=4 Cefepime S <=1 F Susceptible <=2 , Susceptible-Dose Dependent >2 , Resistant >=16 Ertapenem S <=0.5 F Susceptible <=0.5 , Intermediate >.5 , Resistant >1 Meropenem S <=0.25 F Susceptible <=1 , Intermediate >1 , Resistant >2 Ampicillin/Sulbact S 4 F Susceptible <=8 , Intermediate >8 , Resistant >16 Piperacillin/Tazobac S <=4 F Susceptible <16 , Susceptible-Dose Dependent >=16 , Resistant >=32 Gentamicin S <=1 F Susceptible <=2 , Intermediate >2 , Resistant >=8 Tobramycin S <=1 F Susceptible <4 , Intermediate >=4 , Resistant >=8 Trimeth sulfameth S <=20 F Susceptible <=40 , Resistant >40 Ciprofloxacin S <=0.25 F Susceptible <0.5 , Intermediate >=.5 , Resistant >=1 Nitrofurantoin S <=16 F Susceptible <=32 , Intermediate >32 , Resistant >64 ORGANISM ID: 2 (KLEBSIELLA PNEUMONIAE) ANTIBIOTIC INTERPRETATION ANGELES STATUS REFERENCE RANGE Ampicillin R >=32 F Susceptible <=8 , Intermediate >8 , Resistant >16 Cefazolin S <=4 F Susceptible 0-16 , Intermediate <0 or >16 , Resistant >16 For uncomplicated urinary tract infections, cefazolin results can be used to predict susceptibility or resistance to cephalexin. Ceftriaxone S <=1 F Susceptible <=1 , Intermediate >1 , Resistant >=4 Cefepime S <=1 F Susceptible <=2 , Susceptible-Dose Dependent >2 , Resistant >=16 Ertapenem S <=0.5 F Susceptible <=0.5 , Intermediate >.5 , Resistant >1 Meropenem S <=0.25 F Susceptible <=1 , Intermediate >1 , Resistant >2 Ampicillin/Sulbact S 4 F Susceptible <=8 , Intermediate >8 , Resistant >16 Piperacillin/Tazobac S <=4 F Susceptible <16 , Susceptible-Dose Dependent >=16 , Resistant >=32 Gentamicin S <=1 F Susceptible <=2 , Intermediate >2 , Resistant >=8 Tobramycin S <=1 F Susceptible <4 , Intermediate >=4 , Resistant >=8 Trimeth sulfameth S <=20 F Susceptible <=40 , Resistant >40 Ciprofloxacin S <=0.25 F Susceptible <0.5 , Intermediate >=.5 , Resistant >=1 Nitrofurantoin I 64 F Susceptible <=32 , Intermediate >32 , Resistant >64 Abnormal [facility] Comment on above: Performed By: #### 6 30-4 ####[facility] [id number] [address] [address] [place] CNOVon 07-27-2024 CNOV Office Visit (ADRIANA) RHONDA COHEN ([id number]) 1 F Date Time Provider Department 07/27/24 6:10 PM YANCI LEWIS During your visit today, we recorded the following information about you: Pulse Blood pressure Weight 99/minute 110/85 64.9 kg Yanci Lewis APRN.CNP 07/27/2024 6:31 PM Addendum (R30.0) Dysuria (primary encounter diagnosis) Plan: URINE CULTURE (R11.0) Nausea Plan: HCG QUAL UR B/O UA only shows trace leukocytes. Will send culture and start pyridium. -Negative hcg in office. -Increase fluids. Focus on clears. -Decrease sugary drink intake. Minimize caffeine. -Wipe front to back. No tight clothing. No bubble baths. -Results will be released to [facility] unless there is a need for a change in medication. -If no improvement in 3-5 days please be re-seen by primary care. -Be seen immediately or go to the ER with worsening/warning symptoms. Warning symptoms include: chills, severe flank pain, severe abdominal/pelvic pain, fevers 101 or higher, chest pain, and respiratory distress. Certain foods and beverages might irritate your bladder, including: Coffee, tea and carbonated drinks, even without caffeine. Alcohol. Certain acidic fruits -- oranges, grapefruits, latoya and limes -- and fruit juices. Spicy foods. Tomato-based products. Carbonated drinks. Chocolate. Yanci Lewis APRN.CNP 07/27/2024 6:35 PM Signed This note was created using NoteWriter. Subjective Rhonda Cohen is a 19 year old female. HPI by patient: Rhonda Cohen is a 19 year old presenting to the office with the complaint of uti symptoms. Started today. Associated symptoms include painful urination and frequency. Has some nausea. Denies fever and vomiting. Isn't trying to get but isn't preventing. Last cycle was a couple weeks ago. OTC not used. No antibiotic use in the last 60 days. ALLERGIES Atarax [Hydroxyzine] Other: See Comments Comment:Patient has paradoxical effect, she is hyperalert and is up all night. Acetaminophen Diarrhea Chlorhexidine Rash Comment:Rash/burning Ciprofloxacin Other: See Comments Comment:Family history of the allergy Clindamycin Anaphylaxis Ibuprofen Diarrhea Lactose Diarrhea Peanut Butter Flavor Diarrhea, GI Upset Penicillins Other: See Comments Comment:06/29/23: Extensive family history of multiple antibiotic allergies including penicillins. Report multiple family members having anaphylaxis reactions. Red Dye Intolerance Tramadol Other: See Comments Comment:Blurred vision Zithromax [Azithrom* Diarrhea Family History Reviewed Including Cardiac Diseases, Psychiatric Diseases, AND Substance Abuse Problem: Fibromyalgia Relation: Mother Age of Onset: (Not Specified) Problem: Cervical Cancer Relation: Mother Age of Onset: (Not Specified) Problem: other (diverticulitis) Relation: Mother Age of Onset: (Not Specified) Problem: Kidney Disease Relation: Father Age of Onset: (Not Specified) Problem: No Known Problems Relation: Sister Age of Onset: (Not Specified) Problem: Kidney stones Relation: Brother Age of Onset: (Not Specified) Problem: No Known Problems Relation: Brother Age of Onset: (Not Specified) Problem: No Known Problems Relation: Brother Age of Onset: (Not Specified) Problem: Bipolar disorder Relation: Maternal Grandmother Age of Onset: (Not Specified) Problem: other (endometriosis) Relation: Maternal Grandmother Age of Onset: (Not Specified) Problem: Heart Relation: Maternal Grandfather Age of Onset: (Not Specified) Problem: No Known Problems Relation: Paternal Grandmother Age of Onset: (Not Specified) Problem: Heart Attack Relation: Paternal Grandfather Age of Onset: (Not Specified) Problem: other (endometriosis) Relation: Other Age of Onset: (Not Specified) Social History Tobacco Use Smoking status: Never Passive exposure: Never Smokeless tobacco: Never Vaping Use Vaping status: Never Used Alcohol use: Never Drug use: Never Active Ambulatory Problems Nausea AND vomiting Date Noted: 10/31/2021 Diarrhea Date Noted: 10/31/2021 Abdominal pain Date Noted: 10/31/2021 Adjustment disorder Date Noted: 10/31/2021 Irregular menstrual cycle Date Noted: 05/01/2022 Colitis Date Noted: 06/29/2023 Depression Date Noted: 07/01/2023 Anxiety Date Noted: 07/01/2023 High anion gap metabolic acidosis Date Noted: 07/04/2023 Ketosis (HCC) Date Noted: 07/04/2023 Chronic migraine w/o aura w/o status migrainosus, not intractable Date Noted: 01/22/2024 Regular astigmatism of both eyes Date Noted: 01/22/2024 Resolved Ambulatory Problems Abdominal pain of unknown etiology Date Noted: 10/31/2021 Past Medical History: No date: Anxiety and depression No date: History of IBS Review of Systems HENT: Negative. Eyes: Negative. Respiratory: Ne (more content not included)... Normal [facility] UA DIP, URINE (POC)on 2023 BILIRUBIN UA (POCT) Negative Negative [facility] CLARITY UA (POCT) Cloudy [facility] COLOR UA (POCT) Light yellow [facility] GLUCOSE UA (POCT) Negative Negative mg/dL [facility] Hemoglobin Ql (U) Negative Negative [facility] Interpretation and review of laboratory results Abnormal [facility] KETONE UA (POCT) Negative Negative mg/dL [facility] LEUKOCYTES UA (POCT) Trace Abnormal Negative [facility] NITRITE UA (POCT) Negative Negative [facility] PH UA (POCT) 6.0 4.5 - 8.0 [facility] Protein Ql (U) Negative Negative mg/dL [facility] SPECIFIC GRAVITY UA (POCT) 1.020 1.005 - 1.030 [facility] UROBILINOGEN UA (POCT) 0.2 Normal E.U./d L [facility] Location:[facility], [address] [place] [address], [address] [place] [address] POINT OF CARE [facility] UA DIP,URINE HCG (POC)on Beta HCG ( test) Ql (U) Negative Negative [facility] Comment on above: Location:[facility], [address] [place] [address], [facility] [employer] (POCT) Internal QC [place] [facility] Location:[facility], [address] [place] [address], [place], [place], [id number] [place] [address] POINT OF CARE [facility] CNOVon 07-04-2024 CNOV Office Visit (WALKWA) RHONDA COHEN ([id number]) 1 F Date Time Provider Department 07/04/24 6:55 PM ALISHA BAKER WALKWA During your visit today, we recorded the following information about you: Temperature Pulse Respiration Weight 98.4 degrees 74/minute 18/minute 63.6 kg Alisha Baker PA-C 07/04/2024 7:25 PM Addendum 07/04/2024 Patient presents with: Derm Problem: skin tear SUBJECTIVE: This is a 19 year old female that is here today for a skin tear to her right thigh. She pulled an adhesive cover off of a near by new tattoo, and it peeled off a dime-sized area of skin- 2 days ago. It stings and she is concerned it will get infected. No edema, erythema, warmth, or drainage. No red streaking. She has put numbing antibiotic ointment on it. No sick symptoms. Denies fever, chills, sweats, ill feeling, or fatigue. Patient denies shortness of breath, increased WOB, or chest pain. Pain on scale of 0-10 with 0 being no pain and 10 being greatest pain: - Nothing makes the symptoms better. Nothing makes them worse. Self-treatment:. See HPI Barriers to learning: none. Reviewed meds, OTCs, herbals or supplements. Reviewed allergies, medications, social history, and past medical history.. The severity is mild and the symptoms are not improving. The patient did not have a similar problem in the last 3 months. The patient did not take any antibiotics in the last 3 months. PAST MEDICAL HISTORY Diagnosis Date Anxiety and depression History of IBS ALLERGIES Atarax [Hydroxyzine], Acetaminophen, Chlorhexidine, Ciprofloxacin, Clindamycin, Ibuprofen, Lactose, Peanut Butter Flavor, Penicillins, Red Dye, Tramadol, and Zithromax [Azithromycin] MEDICATIONS Current Outpatient Medications Medication Sig mupirocin (BACTROBAN) 2 % ointment Apply to affected area three times a day for 10 days. omeprazole (PRILOSEC) 40 mg capsule Take 1 capsule by mouth once daily. fexofenadine (MELISA) 180 mg tablet Take 1 tablet by mouth four times daily. gabapentin (NEURONTIN) 300 mg capsule Take 1 capsule by mouth as directed for 60 days. fluticasone (FLONASE ALLERGY RELIEF) 50 mcg/actuation nasal spray Use 1 [place] in each nostril once daily. Brompheniramine-Pseu doeph-DM (BROMFED DM) 2-30-10 mg/5 mL syrup Take 5 mL by mouth four times a day as needed. diphenhydrAMINE (BENADRYL) 25 mg capsule hyoscyamine sublingual (LEVSIN/SL) 0.125 mg Dissolve 1 tablet under the tongue every 4 hours as needed (abdominlal pain). cholecalciferol, Vitamin D3, (VITAMIN D3) 1,250 mcg (50,000 unit) cap capsule Take 1 capsule by mouth one time a week. DULoxetine (CYMBALTA) 20 mg capsule Take 1 capsule by mouth once daily. peppermint oil (IBGARD) 90 mg CECX Take 1 capsule by mouth once daily as needed (INTESTINAL UPSET). No current facility-administere d medications for this visit. SOCIAL HISTORY Social History Tobacco Use Smoking status: Never Passive exposure: Never Smokeless tobacco: Never Vaping Use Vaping status: Never Used Substance Use Topics Alcohol use: Never Drug use: Never REVIEW OF SYSTEMS Review of Systems ROS: constitutional-neg, HENT-neg, Eyes- neg, heart-neg, respiratory-neg, lymph-neg, skin- skin tear MSK- neg, - All systems neg except as noted above in HPI. OBJECTIVE: Pulse 74 Temp 36.9 ?C (98.4 ?F) Resp 18 Wt 63.6 kg (140 lb 3.4 oz) LMP 12/03/2023 (Exact Date) SpO2 99% BMI 24.07 kg/m? . Vital signs reviewed by this provider. Physical Exam Vitals reviewed. Constitutional: General: She is not in acute distress. Appearance: Normal appearance. She is well-developed and normal weight. She is not ill-appearing, toxic-appearing or diaphoretic. HENT: Head: Normocephalic and atraumatic. Skin: General: Skin is warm. Capillary Refill: Capillary refill takes less than 2 seconds. Findings: Wound present. No abrasion, abscess, acne, bruising, burn, ecchymosis, erythema, signs of injury, laceration, lesion, petechiae or rash. Neurological: General: No focal deficit present. Mental Status: She is alert and oriented to person, place, and time. Sensory: Sensation is intact. Psychiatric: Behavior: Behavior is cooperative. ASSESSMENT/PLAN: 1. Noninfected skin tear of leg, right, initial encounter - ICD9: 891.0, ICD10: S81.811A - MUPIROCIN 2 % TOPICAL OINTMENT - She wants to avoid oral antibiotics due to her many antibiotic allergies - Follow up with your PCP - Monitor for signs of worsening infection- more red, swollen, painful, hot, red streaking, fever, etc- seek further evaluation Call PCP if symptoms worsen or no better. If symptoms worsen, or new symptoms develop go to ER. If you have worsening of breathing or breathing changes- go to ER. If you have persistent fever unrelieved by Tylenol/Motrin- go to the ER. Follow up as needed. Barriers to (more content not included)... [facility] Nurse Visit ([facility]) RHONDA COHEN ([id number]) 1 F Date Time Provider Department 06/07/24 1:00 PM NURSE JOSE MALIK ALDO During your visit today, we recorded the following information about you: Pulse Blood pressure 88/minute 96/64 Deanna Sanz RN 06/07/2024 1:56 PM Addendum Patient came to PCP office for tdap vaccine. She is identified by name and date of . VIS provided and allergies reviewed. Reviewed order with a second caregiver. Administered tdap injection IM to L deltoid. 5 minutes after receiving the vaccine, she states she felt a little bit lightheaded. She states she has not eaten much today. Provided patient a kay cracker to eat. Water offered, declined. Vitals taken and recorded. After 20 minutes patient felt well to leave with a building performance specialist. She walked out without assistance. Deanna Sanz RN Allergies As of Date: 06/07/2024 Noted Allergy Reaction ATARAX (HYDROXYZINE) 06/30/2023 14 - Other: See Comments Comments: Patient has paradoxical effect, she is hyperalert and is up all night. ACETAMINOPHEN 05/27/2022 6 - Diarrhea CHLORHEXIDINE 06/29/2023 2 - Rash Comments: Rash/burning CIPROFLOXACIN 06/29/2023 14 - Other: See Comments Comments: Family history of the allergy CLINDAMYCIN 06/29/2023 10 - Anaphylaxis IBUPROFEN 05/27/2022 6 - Diarrhea LACTOSE 11/02/2021 6 - Diarrhea PEANUT BUTTER FLAVOR 04/29/2023 6 - Diarrhea 8 - GI Upset PENICILLINS 01/08/2019 14 - Other: See Comments Comments: 06/29/23: Extensive family history of multiple antibiotic allergies including penicillins. Report multiple family members having anaphylaxis reactions. RED DYE 07/05/2023 5 - Intolerance TRAMADOL 09/11/2023 14 - Other: See Comments Comments: Blurred vision ZITHROMAX (AZITHROMYCIN) 01/27/2024 6 - Diarrhea Date Reviewed: 06/07/2024 Reviewed by: Deanna Sanz, UMAIR - Fully Assessed Reason for Visit: Immunizations [194] Cmt: tdap Primary Visit Diagnosis:Encounter for immunization [Z23] Prescriptions as of 06/07/2024 - omeprazole (PRILOSEC) 40 mg capsule Take 1 capsule by mouth once daily. - fexofenadine (MELISA) 180 mg tablet Take 1 tablet by mouth four times daily. - gabapentin (NEURONTIN) 300 mg capsule Take 1 capsule by mouth as directed for 60 days. - fluticasone (FLONASE ALLERGY RELIEF) 50 mcg/actuation nasal spray Use 1 [place] in each nostril once daily. - Brompheniramine-Pseu doeph-DM (BROMFED DM) 2-30-10 mg/5 mL syrup Take 5 mL by mouth four times a day as needed. - glucagon (GLUCAGEN) 1 mg/mL injection Inject 1 mg intravenously one time only for 1 dose. For MRI Enterography, Inject 1 mg intravenously, as directed. Slow push at the appropriate time during MRI Scan - diphenhydrAMINE (BENADRYL) 25 mg capsule - hyoscyamine sublingual (LEVSIN/SL) 0.125 mg Dissolve 1 tablet under the tongue every 4 hours as needed (abdominlal pain). - fexofenadine (MELISA ALLERGY) 180 mg tablet Take 1 tablet by mouth once daily. - cholecalciferol, Vitamin D3, (VITAMIN D3) 1,250 mcg (50,000 unit) cap capsule Take 1 capsule by mouth one time a week. - DULoxetine (CYMBALTA) 20 mg capsule Take 1 capsule by mouth once daily. - peppermint oil (IBGARD) 90 mg CECX Take 1 capsule by mouth once daily as needed (INTESTINAL UPSET). 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 Patient is scheduled as a nurse visit today for tetanus shot. Please sign order. Allergies As of Date: 05/10/2024 Noted Allergy Reaction ATARAX (HYDROXYZINE) 06/30/2023 14 - Other: See Comments Comments: Patient has paradoxical effect, she is hyperalert and is up all night. ACETAMINOPHEN 05/27/2022 6 - Diarrhea CHLORHEXIDINE 06/29/2023 2 - Rash Comments: Rash/burning CIPROFLOXACIN 06/29/2023 14 - Other: See Comments Comments: Family history of the allergy CLINDAMYCIN 06/29/2023 10 - Anaphylaxis IBUPROFEN 05/27/2022 6 - Diarrhea LACTOSE 11/02/2021 6 - Diarrhea PEANUT BUTTER FLAVOR 04/29/2023 6 - Diarrhea 8 - GI Upset PENICILLINS 01/08/2019 14 - Other: See Comments Comments: 06/29/23: Extensive family history of multiple antibiotic allergies including penicillins. Report multiple family members having anaphylaxis reactions. RED DYE 07/05/2023 5 - Intolerance TRAMADOL 09/11/2023 14 - Other: See Comments Comments: Blurred vision ZITHROMAX (AZITHROMYCIN) 01/27/2024 6 - Diarrhea Date Reviewed: 02/24/2024 Reviewed by: Terrie Marte, UMAIR - Fully Assessed Reason for Visit: Orders [681] Visit Diagnosis:Encounter for immunization [Z23] Order(s):TDAP VACCINE, AGE 7+ YR (ADACEL, BOOSTRIX) [[id number]] Order #: [id number] Prescriptions as of 05/10/2024 - omeprazole (PRILOSEC) 40 mg capsule Take 1 capsule by mouth once daily. - fexofenadine (MELISA) 180 mg tablet Take 1 tablet by mouth four times daily. - gabapentin (NEURONTIN) 300 mg capsule Take 1 capsule by mouth as directed for 60 days. - fluticasone (FLONASE ALLERGY RELIEF) 50 mcg/actuation nasal spray Use 1 [place] in each nostril once daily. - Brompheniramine-Pseu doeph-DM (BROMFED DM) 2-30-10 mg/5 mL syrup Take 5 mL by mouth four times a day as needed. - glucagon (GLUCAGEN) 1 mg/mL injection Inject 1 mg intravenously one time only for 1 dose. For MRI Enterography, Inject 1 mg intravenously, as directed. Slow push at the appropriate time during MRI Scan - diphenhydrAMINE (BENADRYL) 25 mg capsule - hyoscyamine sublingual (LEVSIN/SL) 0.125 mg Dissolve 1 tablet under the tongue every 4 hours as needed (abdominlal pain). - fexofenadine (MELISA ALLERGY) 180 mg tablet Take 1 tablet by mouth once daily. - cholecalciferol, Vitamin D3, (VITAMIN D3) 1,250 mcg (50,000 unit) cap capsule Take 1 capsule by mouth one time a week. - DULoxetine (CYMBALTA) 20 mg capsule Take 1 capsule by mouth once daily. - peppermint oil (IBGARD) 90 mg CECX Take 1 capsule by mouth once daily as needed (INTESTINAL UPSET). 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 Address: [address] [place] [address] Performed By: #### 5 7021-8 ####[facility] LABORATORYCLIA [id number] [place] [address] [place] Basophils/100 WBC (Bld) 0.8 % Normal [facility] Comment on above: Order Comment: Speci men Type: BLOOD SPECIMENOrdering Facility: [facility] Address: [address] [place] [address] Performed By: #### 5 7021-8 ####[facility]CM[facility] LABORATORYCLIA [id number] [place] [address] [place] Differential cell count method Nom (Bld) Auto Normal [facility] Comment on above: Order Comment: Speci men Type: BLOOD SPECIMENOrdering Facility: [facility] Address: [address] [place] [address] Performed By: #### 5 7021-8 ####[facility]CM[facility] LABORATORYCLIA [id number] [place] [address] [place] Eosinophils (Bld) [#/Vol] 0.16 10*3/uL Normal <0.46 [facility] Comment on above: Order Comment: Speci men Type: BLOOD SPECIMENOrdering Facility: [facility] Address: [address] [place] [address] Performed By: #### 5 7021-8 ####MCMILL[facility] LABORATORYCLIA [id number] [place] [address] [place] Eosinophils/100 WBC (Bld) 3.0 % Normal [facility] Comment on above: Order Comment: Speci men Type: BLOOD SPECIMENOrdering Facility: [facility] Address: [address] [place] [address] Performed By: #### 5 7021-8 ####MCM[facility] LABORATORYCLIA [id number] [place] [address] [place] Erythrocyte distribution width (RBC) [Ratio] 12.6 % Normal 11.5-15.0 [facility] Comment on above: Order Comment: Speci men Type: BLOOD SPECIMENOrdering Facility: [facility] Address: [address] [place] [address] Performed By: #### 5 7021-8 ####MCM[facility] LABORATORYCLIA [id number] [place] [address] [place] Hematocrit (Bld) [Volume fraction] 37.1 % Normal 36.0-46.0 [facility] Comment on above: Order Comment: Speci men Type: BLOOD SPECIMENOrdering Facility: [facility] Address: [address] [place] [address] Performed By: #### 5 7021-8 ####MCMILL[facility] LABORATORYCLIA [id number] [place] [address] [place] Hemoglobin (Bld) [Mass/Vol] 12.4 g/dL Normal 11.5-15.5 [facility] Comment on above: Order Comment: Speci men Type: BLOOD SPECIMENOrdering Facility: [facility] Address: [address] [place] [address] Performed By: #### 5 7021-8 ####MCMILL[facility] LABORATORYCLIA [id number] [place] [address] [place] Immature granulocytes (Bld) [#/Vol] 10*3/uL Normal <0.10 [facility] Comment on above: Order Comment: Speci men Type: BLOOD SPECIMENOrdering Facility: [facility] Address: [address] [place] [address] Performed By: #### 5 7021-8 ####MCMILLAN LABORATORYCLIA [id number] [address] Immature granulocytes/100 WBC (Bld) 0.2 % Normal [facility] Comment on above: Order Comment: Speci men Type: BLOOD SPECIMENOrdering Facility: [facility] Address: [address] [place] [address] Performed By: #### 5 7021-8 ####MCMILL[facility] LABORATORYCLIA [id number] [place] [address] [place] Lymphocytes (Bld) [#/Vol] 1.94 10*3/uL Normal 1.00-4.00 [facility] Comment on above: Order Comment: Speci men Type: BLOOD SPECIMENOrdering Facility: [facility] Address: [address] [place] [address] Performed By: #### 5 7021-8 ####MCMILL[facility] LABORATORYCLIA [id number] [address] Lymphocytes/100 WBC (Bld) 36.8 % Normal [facility] Comment on above: Order Comment: Speci men Type: BLOOD SPECIMENOrdering Facility: [facility] Address: [address] [place] [address] Performed By: #### 5 7021-8 ####MCMILLAN LABORATORYCLIA [id number] [address] [place] MCH (RBC) [Entitic mass] 28.1 pg Normal 26.0-34.0 [facility] Comment on above: Order Comment: Speci men Type: BLOOD SPECIMENOrdering Facility: [facility] Address: [address] [place] [address] Performed By: #### 5 7021-8 ####MCMILLAN LABORATORYCLIA [id number] [address] [place] [facility] MCHC (RBC) [Mass/Vol] 33.4 g/dL Normal 30.5-36.0 [facility] Comment on above: Order Comment: Speci men Type: BLOOD SPECIMENOrdering Facility: [facility] Address: [address] [place] [address] Performed By: #### 5 7021-8 ####MCMILL[facility] LABORATORYCLIA [id number] [place] [address] [place] MCV (RBC) [Entitic vol] 83.9 fL Normal 80.0-100.0 [facility] Comment on above: Order Comment: Speci men Type: BLOOD SPECIMENOrdering Facility: [facility] Address: [address] [place] [address] Performed By: #### 5 7021-8 ####MCMILL[facility] LABORATORYCLIA [id number] [place] [address] [place] Monocytes (Bld) [#/Vol] 0.52 10*3/uL Normal <0.87 [facility] Comment on above: Order Comment: Speci men Type: BLOOD SPECIMENOrdering Facility: [facility] Address: [address] [place] [address] Performed By: #### 5 7021-8 ####MCMILL[facility] LABORATORYCLIA [id number] [address] [place] Monocytes/100 WBC (Bld) 9.9 % Normal [facility] Comment on above: Order Comment: Speci men Type: BLOOD SPECIMENOrdering Facility: [facility] Address: [address] [place] [address] Performed By: #### 5 7021-8 ####MCMILL[facility] LABORATORYCLIA [id number] [place] [address] [place] Neutrophils (Bld) [#/Vol] 2.60 10*3/uL Normal 1.45-7.50 [facility] Comment on above: Order Comment: Speci men Type: BLOOD SPECIMENOrdering Facility: [facility] Address: [address] [place] [address] Performed By: #### 5 7021-8 ####MCM[facility] LABORATORYCLIA [id number] [address] [place] Neutrophils/100 WBC (Bld) 49.3 % Normal [facility] Comment on above: Order Comment: Speci men Type: BLOOD SPECIMENOrdering Facility: [facility] Address: [address] [place] [address] Performed By: #### 5 7021-8 ####MCMILLAN LABORATORYCLIA [id number] [place] [address] [place] Nucleated RBC (Bld) [#/Vol] 10*3/uL Normal <0.01 [facility] Comment on above: Order Comment: Speci men Type: BLOOD SPECIMENOrdering Facility: [facility] Address: [address] [place] [address] Performed By: #### 5 7021-8 ####MCMILL[facility] LABORATORYCLIA [id number] [place] [address] [place] Nucleated RBC/100 WBC (Bld) [Ratio] 0.0 /100 WBC Normal [facility] Comment on above: Order Comment: Speci men Type: BLOOD SPECIMENOrdering Facility: [facility] Address: [address] [place] [address] Performed By: #### 5 7021-8 ####MCM[facility] LABORATORYCLIA [id number] [place] [address] [place] Platelet mean volume (Bld) [Entitic vol] 9.8 fL Normal 9.0-12.7 [facility] Comment on above: Order Comment: Speci men Type: BLOOD SPECIMENOrdering Facility: [facility] Address: [address] [place] [address] Performed By: #### 5 7021-8 ####MCM[facility] LABORATORYCLIA [id number] [place] [address] [place] Platelets (Bld) [#/Vol] 269 10*3/uL Normal 150-400 [facility] Comment on above: Order Comment: Speci men Type: BLOOD SPECIMENOrdering Facility: [facility] Address: [address] [place] [address] Performed By: #### 5 7021-8 ####MCM[facility] LABORATORYCLIA [id number] [place] [address] [place] RBC (Bld) [#/Vol] 4.42 10*6/uL Normal 3.90-5.20 [facility] Comment on above: Order Comment: Speci men Type: BLOOD SPECIMENOrdering Facility: [facility] Address: [address] [place] [address] Performed By: #### 5 7021-8 ####MCM[facility] LABORATORYCLIA [id number] [address] [place] WBC (Bld) [#/Vol] 5.27 10*3/uL Normal 3.70-11.00 [facility] Comment on above: Order Comment: Speci men Type: BLOOD SPECIMENOrdering Facility: [facility] Address: [address] [place] [address] Performed By: #### 5 7021-8 ####[facility]CM[facility] LABORATORYCLIA [id number] [address] Comprehensive metabolic 2000 panelon 02-24-2024 Albumin [Mass/Vol] 4.1 g/dL Normal 3.9-4.9 [facility] Comment on above: Order Comment: Speci men Type: BLOOD SPECIMENOrdering Facility: [facility] Address: [address] [place] [address] Performed By: #### 2 4323-8 ####MCM[facility] LABORATORYCLIA [id number] [address] ALP [Catalytic activity/Vol] 72 U/L Normal 34-123 [facility] Comment on above: Order Comment: Speci men Type: BLOOD SPECIMENOrdering Facility: [facility] Address: [address] [place] [address] Performed By: #### 2 4323-8 ####[facility]CM[facility] LABORATORYCLIA [id number] [address] ALT [Catalytic activity/Vol] 26 U/L Normal 7-38 [facility] Comment on above: Order Comment: Speci men Type: BLOOD SPECIMENOrdering Facility: [facility] Address: [address] [place] [address] Performed By: #### 2 4323-8 ####[facility]CM[facility] LABORATORYCLIA [id number] [address] Anion gap [Moles/Vol] 11 mmol/L Normal 8-15 [facility] Comment on above: Order Comment: Speci men Type: BLOOD SPECIMENOrdering Facility: [facility] Address: [address] [place], [place] [address] Performed By: #### 2 4323-8 ####MCMILL[facility] LABORATORYCLIA [id number] [address] [place] AST [Catalytic activity/Vol] 27 U/L Normal 13-35 [facility] Comment on above: Order Comment: Speci men Type: BLOOD SPECIMENOrdering Facility: [facility] Address: [address] [place] [address] Performed By: #### 2 4323-8 ####[facility]CM[facility] LABORATORYCLIA [id number] [place] [address] [place] Bilirubin [Mass/Vol] 0.5 mg/dL Normal 0.2-1.3 [facility] Comment on above: Order Comment: Speci men Type: BLOOD SPECIMENOrdering Facility: [facility] Address: [address] [place] [address] Performed By: #### 2 4323-8 ####[facility]CM[facility] LABORATORYCLIA [id number] [address] [place] Calcium [Mass/Vol] 8.8 mg/dL Normal 8.5-10.2 [facility] Comment on above: Order Comment: Speci men Type: BLOOD SPECIMENOrdering Facility: [facility] Address: [address] [place] [address] Performed By: #### 2 4323-8 ####MCMILL[facility] LABORATORYCLIA [id number] [place] [address] [place] Chloride [Moles/Vol] 105 mmol/L Normal 98-107 [facility] Comment on above: Order Comment: Speci men Type: BLOOD SPECIMENOrdering Facility: [facility] Address: [address] [place] [address] Performed By: #### 2 4323-8 ####MCM[facility] LABORATORYCLIA [id number] [place] [address] [place] CO2 [Moles/Vol] 23 mmol/L Normal 22-30 [facility] Comment on above: Order Comment: Speci men Type: BLOOD SPECIMENOrdering Facility: [facility] Address: [address] [place] [address] Performed By: #### 2 4323-8 ####MCM[facility] LABORATORYCLIA [id number] [place] [address] [place] Creatinine [Mass/Vol] 0.54 mg/dL Low 0.58-0.96 [facility] Comment on above: Order Comment: Fahad castellanos Type: BLOOD SPECIMENOrdering Facility: [facility] Address: [address] [place] [address] Performed By: #### 2 4323-8 ####MCMILL[facility] LABORATORYCLIA [id number] [address] Creatinine and Glomerular filtration rate.predicted panel (S/P/Bld) 135 mL/min/1.73m??? Normal >=60 [facility] Comment on above: Order Comment: Fahad castellanos Type: BLOOD SPECIMENOrdering Facility: [facility] Address: [address] [place] [address] Result Comment: Zully mated Glomerular Filtration Rate (eGFR) is calculated using the 2020 CKD-EPI creatinine equation. This equation utilizes serum creatinine, sex, and age as parameters. The creatinine assay has traceable calibration to isotope dilution-mass spectrometry. Refer to KDIGO guidelines for clinical interpretation. In patients with unstable renal function, e.g. those with acute kidney injury, the eGFR may not accurately reflect actual GFR. Performed By: #### 2 4323-8 ####MCM[facility] LABORATORYCLIA [id number] [address] Glucose [Mass/Vol] 96 mg/dL Normal 74-99 [facility] Comment on above: Order Comment: Fahad castellanos Type: BLOOD SPECIMENOrdering Facility: [facility] Address: [address] [place] [address] Result Comment: The [place] [employer] (ADA) provides guidance for cutoff values for fasting glucose and random glucose. The ADA defines fasting as no caloric intake for at least 8 hours. Fasting plasma glucose results between 100 to 125 mg/dL indicate increased risk for diabetes (prediabetes). Fasting plasma glucose results greater than or equal to 126 mg/dL meet the criteria for diagnosis of diabetes. In the absence of unequivocal hyperglycemia, results should be confirmed by repeat testing. In a patient with classic symptoms of hyperglycemia or hyperglycemic crisis, random plasma glucose results greater than or equal to 200 mg/dL meet the criteria for diagnosis of diabetes. Reference: Standards of Medical Care in Diabetes 2016, [place] [employer]. Diabetes Care. 2016.39(Suppl 1). Performed By: #### 2 4323-8 ####MCM[facility] LABORATORYCLIA [id number] [place] [address] [place] Potassium [Moles/Vol] 4.2 mmol/L Normal 3.7-5.1 [facility] Comment on above: Order Comment: Speci men Type: BLOOD SPECIMENOrdering Facility: [facility] Address: [address] [place] [address] Performed By: #### 2 4323-8 ####MCMILL[facility] LABORATORYCLIA [id number] [place] [address] [place] Protein [Mass/Vol] 6.9 g/dL Normal 6.3-8.0 [facility] Comment on above: Order Comment: Speci men Type: BLOOD SPECIMENOrdering Facility: [facility] Address: [address] [place] [address] Performed By: #### 2 4323-8 ####MCMILL[facility] LABORATORYCLIA [id number] [address] [place] Sodium [Moles/Vol] 139 mmol/L Normal 136-144 [facility] Comment on above: Order Comment: Speci men Type: BLOOD SPECIMENOrdering Facility: [facility] Address: [address] [place] [address] Performed By: #### 2 4323-8 ####MCMILL[facility] LABORATORYCLIA [id number] [place] [address] [place] Urea nitrogen [Mass/Vol] 13 mg/dL Normal 7-21 [facility] Comment on above: Order Comment: Speci men Type: BLOOD SPECIMENOrdering Facility: [facility] Address: [address] [place] [address] Performed By: #### 2 4323-8 ####MCMILL[facility] LABORATORYCLIA [id number] [place] [address] [place] ED NOTEon 02-24-2024 ED NOTE HNO ID: [id number] Author: MICHELE GAUTHIER RN Service: Nursing Author Type: Registered Nurse Type: ED Notes Filed: 02/27/2024 11:12 Note Text: Emergency Services: ED Call Back Questionnaire SERVICE DATE: 02/24/2024 Are you feeling better? Yes Any questions about discharge instructions and follow-up care? No Were you able to make a follow up appointment? No, referred to appointment hotline Do you have any further questions? No Is there anything that we could have done differently to improve your ED visit? No No there is no one I want to recognize that was involved with my care. SIGNATURE: Michele Gauthier RN PATIENT NAME: Rhonda Cohen DATE: February 27, 2024 TIME: 11:12 AM Normal [facility] ED PROV NOTEon 02-24-2024 ED PROV NOTE HNO ID: [id number] Author: YESSY DELEON MD Service: ? Author Type: Physician Type: ED Provider Notes Filed: 02/24/2024 06:50 Note Text: ED Provider Note Patient Name: Rhonda Cohen : 2005 SERVICE DATE: 02/24/24 History Patient presents with: Abdominal Pain Patient is a 18-year-old female coming in with abdominal pain. Patient has 2-year history of abdominal pain. She states she has abdominal pain every day. Last night was the worst and it was the worst about an hour ago. She was advised to get a tryptase blood test when her pain was bad. She tried to go to the lab but it was not open. He complains of diffuse abdominal pain. She has nausea but no vomiting. She states this is her typical pain but more prominent. PAST MEDICAL HISTORY Diagnosis Date Anxiety and depression History of IBS PAST SURGICAL HISTORY Procedure Laterality Date EGD W/O BRSH SPEC VARICIES INJ 07/06/2023 FAMILY HISTORY Problem Relation Age of Onset Fibromyalgia Mother Cervical Cancer Mother other (diverticulitis) Mother Kidney Disease Father No Known Problems Sister Kidney stones Brother No Known Problems Brother No Known Problems Brother Bipolar disorder Maternal Grandmother other (endometriosis) Maternal Grandmother Heart Maternal Grandfather No Known Problems Paternal Grandmother Heart Attack Paternal Grandfather other (endometriosis) Other Social History Tobacco Use Smoking status: Never Passive exposure: Never Smokeless tobacco: Never Vaping Use Vaping Use: Never used Substance and Sexual Activity Alcohol use: Never Drug use: Never Sexual activity: Yes control/protection: None, Pill ALLERGIES Allergen Reactions Atarax [Hydroxyzine] Other: See Comments Patient has paradoxical effect, she is hyperalert and is up all night. Acetaminophen Diarrhea Chlorhexidine Rash Rash/burning Ciprofloxacin Other: See Comments Family history of the allergy Clindamycin Anaphylaxis Ibuprofen Diarrhea Lactose Diarrhea Peanut Butter Flavor Diarrhea, GI Upset Penicillins Other: See Comments 06/29/23: Extensive family history of multiple antibiotic allergies including penicillins. Report multiple family members having anaphylaxis reactions. Red Dye Intolerance Tramadol Other: See Comments Blurred vision Zithromax [Azithrom* Diarrhea Review of Systems Constitutional: Negative for fever. Respiratory: Negative for shortness of breath. Cardiovascular: Negative for chest pain. Gastrointestinal: Positive for abdominal pain and nausea. All other systems reviewed and are negative. Physical Exam Vitals [02/24/24 0547] BP Pulse Temp Temp src Resp SpO2 Weight Height 99/72 87 36.4 ?C (97.6 ?F) Oral 20 99 % 49.5 kg (109 lb 2 oz) -- Physical Exam Vitals reviewed. Constitutional: General: She is not in acute distress. Appearance: She is not ill-appearing. HENT: Head: Normocephalic. Mouth/Throat: Mouth: Mucous membranes are moist. Cardiovascular: Rate and Rhythm: Normal rate and regular rhythm. Pulmonary: Effort: Pulmonary effort is normal. Breath sounds: Normal breath sounds. Abdominal: Palpations: Abdomen is soft. Tenderness: There is abdominal tenderness (mild diffuse). There is no guarding or rebound. Comments: Is that heating pad on her abdomen Musculoskeletal: Cervical back: Neck supple. Skin: General: Skin is warm. Neurological: General: No focal deficit present. Mental Status: She is alert. Diagnostic Testing ED Labs Ordered and Reviewed - No data to display Procedures ED Course / Clinical Impression Clinical Impressions as of 02/24/24 0649 Generalized abdominal pain Nausea MDM / Disposition / Plan Patient is requesting a tryptase blood test. I did offer CBC CMP IV fluids and pain medicine and nausea medicine. Patient only wants CBC CMP and tryptase. I did review the chart she has had recent abdominal MRI showing no acute findings less than 1 month ago. Tryptase is pending. CMP is normal other than a creatinine that is mildly low at 0.54 which is similar to previous. CBC is within normal limits. I offer blood work and CAT scan however she states it never shows anything. I also offered Toradol and Zofran however she states that just makes her sick. At this point patient is requesting to go home. She is advised to follow with primary care as well as GI and return with any worsening symptoms or concerns Differential Diagnoses - Abdominal pain NOS - Intra-abdominal infection is less likely for the following reason(s): laboratory studies not suggestive and HANDP not suggestive - Severe electrolyte abnormalities is less likely for the following reason(s): laboratory studies not suggestive Disposition The patient was discharged. Counseled patient and spouse regarding lab results, radiology results and suspected diagnosis. SIGNATURE: Yessy Deleon MD - DARLYNE (more content not included)... Normal [facility] TRYPTASE BLOODon 02-24-2024 Tryptase [Mass/Vol] 4.6 ug/L Normal <8.4 [facility] Comment on above: Order Comment: Speci men Type: BLOOD SPECIMENOrdering Facility: [facility] Address: [address] [place] [address] Performed By: #### T RYPT ####[facility] [id number] [place] [address] [place] MRI ABD ENTEROG WO/W IVCONon 01-27-2024 MRI ABD ENTEROG WO/W IVCON * * *Final Report* * * DATE OF EXAM: Jan 27 2024 2:25PM [facility] 0684 - MRI ABD ENTEROG WO/W IVCON / PROCEDURE REASON: multiple diagnoses * * * * Physician Interpretation * * * * RESULT: MRI ABDOMEN WITHOUT AND WITH IV CONTRAST, MRI PELVIS WITHOUT AND WITH IV CONTRAST (MR ENTEROGRAPHY) CLINICAL HISTORY: Abdominal bloating, Elevated fecal calprotectin, Generalized abdominal pain, Nausea TECHNIQUE: Magnet: 1.5T scanner. Multiplanar MRI of the abdomen and MRI of pelvis with multiple sequences, performed before and after contrast. Technique was optimized for small bowel visualization/entero graphy. Contrast: Intravenous: 11 ml of Dotarem COMPARISON: CT 06/29/2023 RESULT: GI Tract: Small bowel: No mural hyperenhancement, edema, or wall thickening. Colon: No mural hyperenhancement, edema, or wall thickening. Strictures: None Fistulae/Sinus tracts: None Abscess: None Abdomen and Pelvis: Liver: Normal morphology. No hepatic steatosis. No mass in the imaged portion. Biliary: No bile duct dilation. Spleen: No mass. No splenomegaly. Pancreas: No mass or duct dilation. Adrenals: No mass. Kidneys: Benign cysts. No solid mass. No hydronephrosis. Lymph nodes: No abdominal or pelvic lymphadenopathy. Mesentery / Peritoneum / Retroperitoneum: No ascites or mass. Vasculature: The celiac axis and SMA are patent. The portal vein and branches, splenic vein, SMV, and hepatic veins are patent. Pelvis: No mass, ascites, or loculated collection. Bones/Soft Tissues: Unremarkable. Lower chest: Unremarkable. IMPRESSION: No active inflammatory bowel disease or other acute finding in the abdomen or pelvis. Transcribed Using Voice Recognition Transcribe Date/Time: Jan 28 2024 11:15A Dictated by: LORENZO CUETO MD This examination was interpreted and the report reviewed and electronically signed by: LORENZO CUETO MD on Jan 28 2024 11:42AM EST [id number] Normal [facility] MRI PEL ENTEROG WO/W IVCONon 01-27-2024 MRI PEL ENTEROG WO/W IVCON * * *Final Report* * * DATE OF EXAM: Jan 27 2024 2:25PM [facility] 0736 - MRI PEL ENTEROG WO/W IVCON / PROCEDURE REASON: multiple diagnoses * * * * Physician Interpretation * * * * RESULT: MRI ABDOMEN WITHOUT AND WITH IV CONTRAST, MRI PELVIS WITHOUT AND WITH IV CONTRAST (MR ENTEROGRAPHY) CLINICAL HISTORY: Abdominal bloating, Elevated fecal calprotectin, Generalized abdominal pain, Nausea TECHNIQUE: Magnet: 1.5T scanner. Multiplanar MRI of the abdomen and MRI of pelvis with multiple sequences, performed before and after contrast. Technique was optimized for small bowel visualization/entero graphy. Contrast: Intravenous: 11 ml of Dotarem COMPARISON: CT 06/29/2023 RESULT: GI Tract: Small bowel: No mural hyperenhancement, edema, or wall thickening. Colon: No mural hyperenhancement, edema, or wall thickening. Strictures: None Fistulae/Sinus tracts: None Abscess: None Abdomen and Pelvis: Liver: Normal morphology. No hepatic steatosis. No mass in the imaged portion. Biliary: No bile duct dilation. Spleen: No mass. No splenomegaly. Pancreas: No mass or duct dilation. Adrenals: No mass. Kidneys: Benign cysts. No solid mass. No hydronephrosis. Lymph nodes: No abdominal or pelvic lymphadenopathy. Mesentery / Peritoneum / Retroperitoneum: No ascites or mass. Vasculature: The celiac axis and SMA are patent. The portal vein and branches, splenic vein, SMV, and hepatic veins are patent. Pelvis: No mass, ascites, or loculated collection. Bones/Soft Tissues: Unremarkable. Lower chest: Unremarkable. IMPRESSION: No active inflammatory bowel disease or other acute finding in the abdomen or pelvis. Transcribed Using Voice Recognition Transcribe Date/Time: Jan 28 2024 11:15A Dictated by: LORENZO CUETO MD This examination was interpreted and the report reviewed and electronically signed by: LORENZO CUETO MD on Jan 28 2024 11:42AM EST [id number] Normal [facility] Nuclear Ab IA Ql (S)on 01-15 SHABANA Scr Qual Negative Negative [facility] Comment on above: The qualitative anti nuclear antibody screen test performed using the following antigens: dsDNA, Chromatin, Ribosomal P, SS-A 60, SS-A 52, SS-B, Sm, SmRNP, BAG HANGER A, BAG HANGER 68, Scl-70, Natali-1, and Centromere B. Methodology: Multiplex flow immunoassay. Interpretation and review of laboratory results Normal [facility] STREP A MOLECULAR (POC)on Procedural Control Valid [facility] Strep A (POCT) Negative Negative [facility] No Panel Informationon 01-14 Interpretation and review of laboratory results Normal [facility] THYROID STIMULATING HORMONEo n 01-15-2024 TSH Qn 1.660 m[IU]/L [facility] Comment on above: If the patient is pr egnant, TSH reference range varies by gestational period: First Trimester (weeks 9-12): 0.180-2.990 mIU/L Second Trimester: 0.110-3.980 mIU/L Third Trimester: 0.480-4.710 mIU/L Dustin Mohan et al. A Practical Approach for the Verifications and Determination of Site- and Trimester-Specific Reference Intervals for Thyroid Function tests in . Thyroid, 2019:29:3:412-420. Fernando E, et al. 2017 Guidelines of the [place] [employer] for the Diagnosis and Management of Thyroid Disease during and the . Thyroid, 2017:27:3:315-389. VITAMIN B12on 01-15-2024 Cobalamin (Vitamin B12) [Mass/Vol] 441 pg/mL 232 - 1245 pg/mL [facility] STREP A MOLECULAR (POC)on Procedural Control Valid [facility] Strep A (POCT) Negative Negative [facility] BACTERIAL VAGINOSIS NAATon 0 12-17-2023 Lactobacillus crispatus+gasseri+jense jona + Gardnerella vaginalis + Atopobium vaginae rRNA FAVIOLA+probe Ql (Vag fld) Negative Negative for bacterial vaginosis [facility] KANG/TRICHOMONAS NAATon 0 12-17-2023 C. glabrata RNA FAVIOLA+probe Ql (Vag fld) Negative Negative for Kang glabrata [facility] Kang sp DNA FAVIOLA+probe Ql (Vag fld) Negative Negative for Kang species [facility] T. vaginalis DNA FAVIOLA+probe Ql (Unsp spec) Negative Negative for Trichomonas vaginalis by amplification [facility] UA DIP, URINE (POC)on 2023 BILIRUBIN UA (POCT) Small Abnormal Negative [facility] CLARITY UA (POCT) Clear [facility] COLOR UA (POCT) Yellow [facility] GLUCOSE UA (POCT) Negative Negative mg/dL [facility] Hemoglobin Ql (U) Trace-intact Abnormal Negative [facility] KETONE UA (POCT) Trace Negative mg/dL [facility] LEUKOCYTES UA (POCT) Negative Negative [facility] NITRITE UA (POCT) Negative Negative [facility] PH UA (POCT) 6.0 4.5 - 8.0 [facility] Protein Ql (U) 30 mg/dL Abnormal Negative mg/dL [facility] SPECIFIC GRAVITY UA (POCT) >=1.030 1.005 - 1.030 [facility] UROBILINOGEN UA (POCT) 0.2 E.U./dL Normal E.U./ dL [facility] US FEMALE PELVIS TRANSVAGon 12-16-2023 FEMALE PELVIS TRANSVAG * * *Final Report* * * DATE OF EXAM: Dec 16 2023 4:14PM [facility] - US FEMALE PELVIS TRANSVAG / PROCEDURE REASON: multiple diagnoses * * * * Physician Interpretation * * * * EXAMINATION: TRANSVAGINAL AND LIMITED TRANSABDOMINAL FEMALE PELVIC ULTRASOUND CLINICAL HISTORY: Dyspareunia TECHNIQUE: Sonography of the pelvis was performed by transvaginal and transabdominal (limited) techniques. Images were obtained and stored in a permanent archive. MQ: [facility]_2021 COMPARISON: 08/18/2023 RESULT: Uterus: -Size: 5.9 x 3.5 x 3.2 cm -Orientation: Anteverted and anteflexed -Endometrial echo complex: Evaluation of the endometrium was adequate. No endometrial abnormality. The endometrial echo complex measured 0.6 cm. -Cervix: Unremarkable. -Adenomyosis assessment: There are no sonographic findings of adenomyosis. -Fibroids: There are no fibroids. Right Ovary: 3 x 2.1 x 2.2 cm. Normal appearance Left Ovary: 3.4 x 1.7 x 1.8 cm. Normal appearance Free Fluid: No abnormal free fluid is present. IMPRESSION: Normal ultrasound of the female pelvis Pet Sitter[facility] Transcribe Date/Time: Dec 18 2023 8:43A Dictated by : SOFIA BLOOM MD This examination was interpreted and the report reviewed and electronically signed by: SOFIA BLOOM MD on Dec 18 2023 8:45AM EST [id number] CN Normal [facility] STREP A MOLECULAR (POC)on Procedural Control Valid [facility] Strep A (POCT) Negative Negative [facility] Absolute lymphocyte counton 05-27-2022 Lymphocytes Auto (Unsp spec) [#/Vol] 1.19 10*3/uL 0.83-4.51 [facility] Work Phone: Basophil percentageon 2021 Basophil percentage 0 SEEN /hpf 0-5 [facility] Work Phone: Basophils/100 WBC (Bld) 0.3 % 0-1 [facility] Work Phone: Bilirubin [Mass/Vol] 0.90 mg/dL 0.20-1.00 [facility] Work Phone: Comment on above: For patients on eltr ombopag therapy, use of Dimension Plover TBIL is not recommended. Chloride [Moles/Vol] 101 mmol/L 98-107 [facility] Work Phone: Eosinophils/100 WBC (Bld) 0.5 % 0-5 [facility] Work Phone: [phone] Glucose [Mass/Vol] 60 mg/dL 74-106 [facility] Work Phone: Neutrophils (Bld) [#/Vol] 4.3 10*3/uL 2.0-7.7 [facility] Work Phone: Neutrophils/100 WBC (Bld) 70.9 % 47-70 [facility] Work Phone: Potassium [Moles/Vol] 4.3 mmol/L 3.5-5.1 [facility] Work Phone: Protein [Mass/Vol] 8.5 g/dL 6.4-8.2 [facility] Work Phone: Sodium [Moles/Vol] 136 mmol/L 136-145 [facility] Work Phone: WBC (Bld) [#/Vol] 6.0 10*3/uL 4.4-11.0 [facility] Work Phone: Beta hCG serum qualon 2021 Beta HCG ( test) Ql Negative [facility] Work Phone: Bilirubin Test strip Ql (U)o n 05-27-2022 Bilirubin Ql (U) Negative Negative [facility] Work Phone: Blood erythrocytes count (nu mber/volume)on 05-27-2022 RBC (Bld) [#/Vol] 4.94 10*6/uL 4.2-5.4 [facility] Work Phone: Blood hemoglobin measurement (mass/volume)on 05-27-2022 Hemoglobin (Bld) [Mass/Vol] 14.0 g/dL 12.0-15.0 [facility] Work Phone: Blood lymphocytes/100 leukoc yteson 05-27-2022 Lymphocytes/100 WBC (Bld) 19.8 % 19-41 [facility] Work Phone: Blood monocytes/100 leukocyt eson 05-27-2022 Monocytes/100 WBC (Bld) 8.2 % 0-10 [facility] Work Phone: Blood platelet mean volumeon 05-27-2022 Platelet mean volume (Bld) [Entitic vol] 9.6 fL 6.2-12.0 [facility] Work Phone: Determination of erythrocyte mean corpuscular volume (MCV)on 05-27-2022 MCV (RBC) [Entitic vol] 82.6 fL 81-99 [facility] Work Phone: Hematocrit Auto (Bld) [Volum e fraction]on 05-27-2022 Hematocrit (Bld) [Volume fraction] 40.8 % 37-47 [facility] Work Phone: Hyaline casts LM.LPF (Urine sed) [#/Area]on 05-27-2022 Hyaline casts (Urine sed) [#/Area] 0 /[LPF] 0-5 [facility] Work Phone: Ketones Test strip Ql (U)on 05-27-2022 Ketones Ql (U) 150 mg/dl Negative [facility] Work Phone: Comment on above: CRITICAL VALUE *HRES ULTS CALLED TO MADHURI ALVAREZ RN 05/27/22 1214 Kira Son.REPORT READ BACK BY SAME. Laboratory - Chemistry and C hemistry - challengeon 05-27-2022 ALP [Catalytic activity/Vol] 80 U/L 45-117 [facility] Work Phone: ALT [Catalytic activity/Vol] 15 U/L 13-56 [facility] Work Phone: [phone] CO2 [Moles/Vol] 19.0 mmol/L 21.0-32.0 [facility] Work Phone: [phone] Globulin (S) [Mass/Vol] 4.4 g/dL 2.2-4.2 [facility] Work Phone: [phone] Lipase [Catalytic activity/Vol] 103 U/L 73-393 [facility] Work Phone: [phone] Urea nitrogen/Creatinine [Mass ratio] 34.2 mg/mg 10-20 [facility] Work Phone: [phone] Laboratory - Hematology and Cell countson 05-27-2022 Erythrocyte distribution width (RBC) [Entitic vol] 37.0 fL 35.1-43.9 [facility] Work Phone: [phone] Erythrocyte distribution width (RBC) [Ratio] 12.2 % 11.6-14.6 [facility] Work Phone: [phone] Immature granulocytes/100 WBC (Bld) 0.300 % 0.0-0.9 [facility] Work Phone: [phone] Comment on above: IG% - Immature Granu locytes (promyelocytes, myelocytes and metamyelocytes) > 1% indicates that a LEFT SHIFT is Present. MCH (RBC) [Entitic mass] 28.3 pg 27.0-32.0 [facility] Work Phone: [phone] Nucleated RBC/100 WBC (Bld) [Ratio] 0 % 0-5 [facility] Work Phone: [phone] MCHC Auto (RBC) [Mass/Vol]on 05-27-2022 MCHC (RBC) [Mass/Vol] 34.3 g/dL 32-36 [facility] Work Phone: [phone] Mucus LM Ql (Urine sed)on Mucus Ql (Urine sed) 0 SEEN /hpf [facility] Work Phone: [phone] Nitrite Test strip Ql (U)on 05-27-2022 Nitrite Ql (U) Negative Negative [facility] Work Phone: [phone] No Panel Informationon 05-27 Estimated Creatinine Clearance Calc 109.28 ml/min [facility] Work Phone: [phone] Estimated GFR (MDRD) Amer 145 mL/min >60 [facility] Work Phone: Comment on above: GFR Calc Estimated GFR (MDRD) Non-Af Amer 120 mL/min >60 [facility] Work Phone: Comment on above: Non- GFR Calc Platelets bldon 05-27-2022 Platelets (Bld) [#/Vol] 324 10*3/uL 150-450 [facility] Work Phone: Protein Test strip Ql (U)on 05-27-2022 Protein Ql (U) 30 mg/dl Negative [facility] Work Phone: Serum or plasma albumin alphonso urement (mass/volume)on 05-27-2022 Albumin [Mass/Vol] 4.1 g/dL 3.2-5.0 [facility] Work Phone: Serum or plasma albumin/glob ulin mass ratioon 05-27-2022 Albumin/Globulin [Mass ratio] 0.9 {ratio} 0.9-2.4 [facility] Work Phone: Serum or plasma calcium alphonso urement (mass/volume)on 05-27-2022 Calcium [Mass/Vol] 9.7 mg/dL 8.5-10.1 [facility] Work Phone: Serum or plasma creatinine m easurement (mass/volume)on 05-27-2022 Creatinine [Mass/Vol] 0.67 mg/dL 0.55-1.02 [facility] Work Phone: Comment on above: The validity of the calculated GFR & GFRAA in patients over 70 years has not been determined. Clinical correlation is essential. Serum or plasma urea nitroge n measurement (mass/volume)on 05-27-2022 Urea nitrogen [Mass/Vol] 23 mg/dL 7-18 [facility] Work Phone: Squamous epithelial cells de tection in urine sediment by light microscopyon 05-27-2022 Epithelial cells.squamous LM Ql (Urine sed) 0-5 SEEN /hpf 5-10 [facility] Work Phone: Thin prep Papanicolaou smear with manual screeningon 05-27-2022 Thin prep Papanicolaou smear with manual screening 18 U/L 15-37 [facility] Work Phone: Thin prep Papanicolaou smear with manual screening 16 5-15 [facility] Work Phone: Urine blood detectionon 05-09 0-2021 RBC Ql (U) 250 /ul Negative [facility] Work Phone: [phone] RBC Ql (U) 5-10 SEEN /hpf 0-5 [facility] Work Phone: Urine clarityon 05-27-2022 Clarity (U) Clear Clear [facility] Work Phone: Urine color determinationon 05-27-2022 Color (U) Yellow Yellow [facility] Work Phone: Urine glucose detectionon Glucose Ql (U) Normal mg/dl Normal [facility] Work Phone: Urine leukocyte esterase det ection by dipstickon 05-27-2022 Leukocyte esterase Test strip Ql (U) Negative Negative [facility] Work Phone: Urine pHon 05-27-2022 pH (U) 5.0 [pH] 5.0 - 8.0 [facility] Work Phone: Urine sediment bacteria coun t by microscopy (number/high power field)on 05-27-2022 Bacteria LM.HPF (Urine sed) [#/Area] RARE /hpf None Seen [facility] Work Phone: Urine specific gravity measu rementon 05-27-2022 Specific gravity (U) [Rel density] 1.030 1.002-1.030 [facility] Work Phone: Urobilinogen Auto test strip Ql (U)on 05-27-2022 Urobilinogen Ql (U) Normal mg/dl Normal [facility] Work Phone: Absolute lymphocyte counton 12-30-2021 Lymphocytes Auto (Unsp spec) [#/Vol] 2.25 10*3/uL 0.83-4.51 [facility] Work Phone: Basophil percentageon 2021 Basophil percentage 0-5 SEEN /hpf [facility] Work Phone: Basophils/100 WBC (Bld) 0.7 % 0-1 [facility] Work Phone: Bilirubin [Mass/Vol] 0.80 mg/dL 0.20-1.00 [facility] Work Phone: Comment on above: For patients on eltr ombopag therapy, use of Dimension Plover TBIL is not recommended. Chloride [Moles/Vol] 109 mmol/L 98-107 [facility] Work Phone: Eosinophils/100 WBC (Bld) 1.2 % 0-3 [facility] Work Phone: Glucose [Mass/Vol] 79 mg/dL 74-106 [facility] Work Phone: Neutrophils (Bld) [#/Vol] 2.9 10*3/uL 2.0-7.7 [facility] Work Phone: Neutrophils/100 WBC (Bld) 49.9 % 34-64 [facility] Work Phone: Potassium [Moles/Vol] 3.6 mmol/L 3.5-5.1 [facility] Work Phone: Protein [Mass/Vol] 7.6 g/dL 6.4-8.2 [facility] Work Phone: Sodium [Moles/Vol] 140 mmol/L 136-145 [facility] Work Phone: WBC (Bld) [#/Vol] 5.8 10*3/uL 4.5-13.0 [facility] Work Phone: Beta hCG serum qualon 2021 Beta HCG ( test) Ql Negative [facility] Work Phone: Bilirubin Test strip Ql (U)o n 12-30-2021 Bilirubin Ql (U) Negative Negative [facility] Work Phone: [phone] Blood erythrocytes count (nu mber/volume)on 12-30-2021 RBC (Bld) [#/Vol] 4.46 10*6/uL 4.1-4.8 [facility] Work Phone: [phone] Blood hemoglobin measurement (mass/volume)on 12-30-2021 Hemoglobin (Bld) [Mass/Vol] 12.7 g/dL 12.0-15.0 [facility] Work Phone: [phone] Blood lymphocytes/100 leukoc yteson 12-30-2021 Lymphocytes/100 WBC (Bld) 38.7 % 25-45 [facility] Work Phone: [phone] Blood monocytes/100 leukocyt eson 12-30-2021 Monocytes/100 WBC (Bld) 9.3 % 3-6 [facility] Work Phone: [phone] Blood platelet mean volumeon 12-30-2021 Platelet mean volume (Bld) [Entitic vol] 10.6 fL 6.2-12.0 [facility] Work Phone: [phone] Determination of erythrocyte mean corpuscular volume (MCV)on 12-30-2021 MCV (RBC) [Entitic vol] 84.1 fL 78-96 [facility] Work Phone: [phone] Hematocrit Auto (Bld) [Volum e fraction]on 12-30-2021 Hematocrit (Bld) [Volume fraction] 37.5 % 37-46 [facility] Work Phone: [phone] Ketones Test strip Ql (U)on 12-30-2021 Ketones Ql (U) 15 mg/dl Negative [facility] Work Phone: [phone] Laboratory - Chemistry and C hemistry - challengeon 12-30-2021 ALP [Catalytic activity/Vol] 83 U/L 47-119 [facility] Work Phone: [phone] ALT [Catalytic activity/Vol] 16 U/L 13-56 [facility] Work Phone: [phone] CO2 [Moles/Vol] 23.0 mmol/L 21.0-32.0 [facility] Work Phone: Globulin (S) [Mass/Vol] 3.5 g/dL 2.2-4.2 [facility] Work Phone: [phone] Lipase [Catalytic activity/Vol] 111 U/L 73-393 [facility] Work Phone: [phone] Urea nitrogen/Creatinine [Mass ratio] 28.5 mg/mg 10-20 [facility] Work Phone: [phone] Laboratory - Hematology and Cell countson 12-30-2021 Erythrocyte distribution width (RBC) [Entitic vol] 39.4 fL 35.1-43.9 [facility] Work Phone: [phone] Erythrocyte distribution width (RBC) [Ratio] 12.8 % 11.6-14.6 [facility] Work Phone: [phone] Immature granulocytes/100 WBC (Bld) 0.200 % 0.0-0.9 [facility] Work Phone: [phone] Comment on above: IG% - Immature Granu locytes (promyelocytes, myelocytes and metamyelocytes) > 1% indicates that a LEFT SHIFT is Present. MCH (RBC) [Entitic mass] 28.5 pg 25.0-35.0 [facility] Work Phone: [phone] Nucleated RBC/100 WBC (Bld) [Ratio] 0 % 0-5 [facility] Work Phone: [phone] MCHC Auto (RBC) [Mass/Vol]on 12-30-2021 MCHC (RBC) [Mass/Vol] 33.9 g/dL 32-36 [facility] Work Phone: [phone] Mucus LM Ql (Urine sed)on Mucus Ql (Urine sed) 0 SEEN /hpf [facility] Work Phone: [phone] Nitrite Test strip Ql (U)on 12-30-2021 Nitrite Ql (U) Negative Negative [facility] Work Phone: [phone] No Panel Informationon 12-30 Estimated Creatinine Clearance Calc 122.36 ml/min [facility] Work Phone: [phone] Estimated GFR (MDRD) Amer 156 mL/min >60 [facility] Work Phone: [phone] Comment on above: GFR Calc Estimated GFR (MDRD) Non-Af Amer 129 mL/min >60 [facility] Work Phone: [phone] Comment on above: Non- GFR Calc Platelets bldon 12-30-2021 Platelets (Bld) [#/Vol] 275 10*3/uL 150-450 [facility] Work Phone: [phone] Protein Test strip Ql (U)on 12-30-2021 Protein Ql (U) 15 mg/dl Negative [facility] Work Phone: [phone] Serum or plasma albumin alphonso urement (mass/volume)on 12-30-2021 Albumin [Mass/Vol] 4.1 g/dL 3.2-5.0 [facility] Work Phone: [phone] Serum or plasma albumin/glob ulin mass ratioon 12-30-2021 Albumin/Globulin [Mass ratio] 1.2 {ratio} 0.9-2.4 [facility] Work Phone: [phone] Serum or plasma calcium alphonso urement (mass/volume)on 12-30-2021 Calcium [Mass/Vol] 9.5 mg/dL 8.5-10.1 [facility] Work Phone: [phone] Serum or plasma creatinine m easurement (mass/volume)on 12-30-2021 Creatinine [Mass/Vol] 0.63 mg/dL 0.55-1.02 [facility] Work Phone: Comment on above: The validity of the calculated GFR & GFRAA in patients over 70 years has not been determined. Clinical correlation is essential. Serum or plasma urea nitroge n measurement (mass/volume)on 12-30-2021 Urea nitrogen [Mass/Vol] 18 mg/dL 7-18 [facility] Work Phone: [phone] Squamous epithelial cells de tection in urine sediment by light microscopyon 12-30-2021 Epithelial cells.squamous LM Ql (Urine sed) 5-10 SEEN /hpf [facility] Work Phone: Thin prep Papanicolaou smear with manual screeningon 12-30-2021 Thin prep Papanicolaou smear with manual screening 19 U/L 15-37 [facility] Work Phone: Thin prep Papanicolaou smear with manual screening 8 5-15 [facility] Work Phone: Urine blood detectionon - RBC Ql (U) Negative Negative [facility] Work Phone: RBC Ql (U) 0 SEEN /hpf [facility] Work Phone: Urine clarityon 12-30-2021 Clarity (U) Sl. Cloudy Clear [facility] Work Phone: Urine color determinationon 12-30-2021 Color (U) Yellow Yellow [facility] Work Phone: Urine glucose detectionon Glucose Ql (U) Normal mg/dl Normal [facility] Work Phone: Urine leukocyte esterase det ection by dipstickon 12-30-2021 Leukocyte esterase Test strip Ql (U) 100 /ul Negative [facility] Work Phone: Urine pHon 12-30-2021 pH (U) 6.0 [pH] [facility] Work Phone: Urine sediment bacteria coun t by microscopy (number/high power field)on 12-30-2021 Bacteria LM.HPF (Urine sed) [#/Area] 2 /[HPF] None Seen [facility] Work Phone: Urine specific gravity measu rementon 12-30-2021 Specific gravity (U) [Rel density] 1.020 [facility] Work Phone: Urobilinogen Auto test strip Ql (U)on 12-30-2021 Urobilinogen Ql (U) Normal mg/dl Normal [facility] Work Phone: Progress Noteon 11-12-2021 Call Worker Person Authentication Interface Message Text Patient ID: Rhonda Cohen is a 16 y.o. female. Her chief complaint(s) include: ED Follow Up Assessment 1. Abdominal pain, unspecified abdominal location 2. Adjustment disorder with mixed anxiety and depressed mood Plan Rhonda was seen today for ed follow up. Diagnoses and all orders for this visit: Abdominal pain, unspecified abdominal location Adjustment disorder with mixed anxiety and depressed mood - sertraline (ZOLOFT) 50 MG tablet; Take 1 Tablet (50 mg) by mouth daily for 30 days Follow up with GI tomorrow. Will increase Zoloft to 50mg daily. Discussed risks and side effects, including increased risk of suicidality. To call with update in 2 weeks. Recheck in 1 month. Subjective HPI Comments: Pt was seen in ED two weeks ago for abdominal pain and vomiting. She was hospitalized for 3 days. She did have an EGD done and a colonoscopy is scheduled for tomorrow. She still has chronic, daily abdominal pain. Stabbing pain up to 9.5/10. It is almost constant. Sleep helps. Everything makes it worse. Today she is having bad menstrual cramps. She has lost about 9 pounds in 2 months. She is following up with GI in [place]. Pt reports that her anxiety has been bad. She has been on Zoloft 25mg daily for 2 months. No side effects. Mood is only bad due to chronic pain. She is unaccompanied. ED Follow Up Primary Care Review of Systems Objective Vital Signs 11/12/21 1009 Temp: 36.6 C (97.8 F) TempSrc: Temporal Weight: 55.2 kg There is no height or weight on file to calculate BMI. Physical Exam Constitutional: She is active. Cardiovascular: Regular rhythm, S1 normal and S2 normal. Heart murmur not heard. Pulmonary/Chest: She has no wheezes. She has no rhonchi. She has no rales. Abdominal: Soft. There is abdominal tenderness (generalized - greatest at LLQ). There is guarding. Neurological: She is alert. Normal [facility] Progress Noteon 10-11-2021 Call Worker Person Authentication Interface Message Text Rhonda Cohen is a 16 y.o. female patient. LUIS-7 Form Assessment With Score Performed by: Hallie Car MD Authorized by: Hallie Car MD LUIS-7 Feeling nervous, anxious, or on edge: Not at all Not being able to stop or control worrying: Not at all Worrying too much about different things: Several days Trouble relaxing: Several days Being so restless that it is hard to sit still: Several days (patient feels most likely due to ADHD) Becoming easily annoyed or irritable: Not at all Feeling afraid as if something awful might happen: Not at all LUIS-7 Total Score: 3 How difficult have these problems made it for you to do your work, take care of things at home, or get along with other people?: Not difficult at all (HAS BEEN COPING WELL) Electronically signed by: Hallie Car MD [facility] Call Worker Person Authentication Interface Message Text Rhonda Cohen is a 16 y.o. female patient. PHQ9 Assessment With Score Performed by: Hallie Car MD Authorized by: Hallie Car MD PHQ-9 See PHQ9 Flowsheet Feeling down, depressed, irritable or hopeless: Not at all Little interest or pleasure in doing things: Several days Trouble falling or staying sleep, or sleeping too much: Several days Poor appetite, weight loss, or overeating: More than half the days (Due to stress) Feeling tired or having little energy: More than half the days Feeling bad about yourself - or feeling that you are a failure, or have let yourself or your family down: Not at all Trouble concentrating on things, like school work, reading or watching TV: Several days Moving or speaking so slowly that other people could have noticed. Or the opposite - being so fidgety or restless that you were moving around a lot more than usual: Not at all Thoughts that you would be better off , or of hurting yourself in some way: Not at all In the past year have you felt depressed or sad most days, even if you felt OK sometimes?: Yes If you are experiencing any of the problems on this form, how difficult have these problems made it for you to do your work, take care of things at home or get along with other people?: Not difficult at all Has there been a time in the past month when you have had serious thoughts about ending your life?: No Have you ever, in your whole life, tried to kill yourself or made a suicide attempt?: No PHQ-9 Total Score: 7 Electronically signed by: Hallie Car MD [facility] Call Worker Person Authentication Interface Message Text Patient ID: Rhonda Cohen is a 16 y.o. female. Her chief complaint(s) include: Anxiety (In pain all the time. Her anxiety is pretty good though.) Assessment 1. Adjustment disorder with mixed anxiety and depressed mood 2. Chronic abdominal pain Plan Rhonda was seen today for anxiety. Diagnoses and all orders for this visit: Adjustment disorder with mixed anxiety and depressed mood - sertraline (ZOLOFT) 25 MG tablet; Take 1 Tablet (25 mg) by mouth daily for 90 days - PHQ9 Assessment With Score - LUIS-7 Form Assessment With Score Chronic abdominal pain - AMB Referral to Population [facility] Care Coordination; Future Return for anxiety follow up in 6 mths . Subjective and objective improvement in symptoms of depression and anxiety - will continue zoloft 25 mg Aware of side effects Discussed trying melatonin 3-5 mg for insomnia Cutting down screen time to 1-2 hrs/day Having a set bedtime schedule and routine Not in counseling at this time - reports coping well at this time Offered ordering nexium and miralax - declined the prescription Discussed following with GI specialist Will involve population [facility] for financial assistance Anxiety/depression follow up in 3-6 months sooner if symptoms worsening Subjective HPI Comments: Here for anxiety follow up Last seen 1 month ago and started on zoloft 25 mg Made it drowsy So was taking at night Now staying awake in the night Was Taking 5 mg of melatonin - was giving nightmares Was waking up in pain due to abdominal pain Screen- 8 hrs/day , has TV Has nausea x 1 month Has not been able to see GI specialist Reported that is broke right now Has tried prilosec in past which did not help Reports that nausea not that bad at this time PHQ 9 - 7 today 14 - 1 month ago No languages and literature instructor was used. Anxiety Medication side effects: sedation, dry mouth, constipation (little ), GI distress, nausea and insomnia Medication side effects: no jitters/tremors and no headache (a few ) Primary Care Review of Systems Objective Vital Signs 10/11/21 1049 BP: 116/65 Pulse: 79 Weight: 58.2 kg Height: 162 cm Body mass index is 22.18 kg/m . Physical Exam Constitutional: She appears well. No distress. HENT: Head: Atraumatic. Ears: Right Ear: Tympanic membrane and external ear normal. Left Ear: Tympanic membrane and external ear normal. Nose: Nose normal. No nasal discharge. Mouth/Throat: Mucous membranes are moist. No tonsillar exudate. Oropharynx is clear. Eyes: Conjunctivae are normal. Neck: Neck supple. Cardiovascular: Normal rate, regular rhythm, S1 normal and S2 normal. Heart murmur not heard. Pulmonary/Chest: Breath sounds normal. No respiratory distress. Abdominal: Soft. Bowel sounds are normal. She exhibits no distension and no mass. There is no hepatosplenomegaly. There is abdominal tenderness (left iliac fossa ). There is no rebound and no guarding. Musculoskeletal: Cervical back: Neck supple. Neurological: She is alert. Skin: Capillary refill takes less than 3 seconds. Skin is warm. Skin is not pale. Findings: No rash. Vitals reviewed: Blood pressure 116/65, pulse 79, height 162 cm, weight 58.2 kg. Normal [facility] Lipid Panelon 09-14-2021 Cholesterol [Mass/Vol] 170 mg/dL High 0-169 [facility] Comment on above: Order Comment: Is th is specimen being sent to an external lab?->No Release to patient->Automatic [id number]&Blood^\S\^Capillary&Capillary Result Comment: Acceptable <170 mg/dL Borderline 170-199 mg/dL Abnormal >199 mg/dL NOTE: Reference Range change effective 08/10/18 Performed By: #### L IPID #### [address] [address] Cholesterol in HDL [Mass/Vol] 62 mg/dL Normal [facility] Comment on above: Order Comment: Is th is specimen being sent to an external lab?->No Release to patient->Automatic [id number]&Blood^\S\^Capillary&Capillary Result Comment: Acceptable >45 mg/dL Borderline 40-45 mg/dL Abnormal <40 mg/dL NOTE: Reference Range change effective 08/10/18 Performed By: #### L IPID #### [address] [address] Cholesterol in LDL [Mass/Vol] 92 mg/dL Normal 0-109 [facility] Comment on above: Order Comment: Is th is specimen being sent to an external lab?->No Release to patient->Automatic [id number]&Blood^\S\^Capillary&Capillary Result Comment: Acceptable <110 mg/dL Borderline 110-129 mg/dL Abnormal >129 mg/dl NOTE: Reference Range change effective 08/10/18 Performed By: #### L IPID #### [address] [address] Non-HDL Cholesterol 108 mg/dl Normal 0-119 [facility] Comment on above: Order Comment: Is th is specimen being sent to an external lab?->No Release to patient->Automatic [id number]&Blood^\S\^Capillary&Capillary Result Comment: Acceptable <120 mg/dL Borderline 120-144 mg/dL Abnormal >144 mg/dl Performed By: #### L IPID #### [address] [address] Triglyceride [Mass/Vol] 78 mg/dL Normal 0-89 [facility] Comment on above: Order Comment: Is th is specimen being sent to an external lab?->No Release to patient->Automatic [id number]&Blood^\S\^Capillary&Capillary Result Comment: Acceptable <90 mg/dl Borderline 90-129 mg/dl Abnormal >129 mg/dl NOTE: Reference Range change effective 08/10/18 Result invalid if not a fasting specimen. Performed By: #### L IPID #### [address] [id number] Progress Noteon 09-13-2021 Call Worker Person Authentication Interface Message Text Rhonda Cohen is a 16 y.o. female patient. Health Risk Assessment - CRAFFT Authorized by: Hallie Car MD CRAFFT Results: 1. Drink more than a few sips of beer, wine, or any drink containing alcohol? Put 0 if none.: 2 (social drinking) 2. Use any marijuana (weed, oil, or hash by smoking, vaping, or in food) or synthetic marijuana (like K2, Spice)? Put 0 if none.: 0 3. Use anything else to get high (like other illegal drugs, prescription or gvbs-qod-zfyztfm medications, and things that you sniff, daniels, or vape)? Put 0 if none.: 0 4. Use any tobacco or nicotine products (for example, cigarettes, e-cigarettes, hookahs or smokeless tobacco)?: 0 5. Have you ever ridden in a CAR driven by someone (including yourself) who was high or had been using alcohol or drugs?: No 6. Do you ever use alcohol or drugs to RELAX, feel better about yourself, or fit in?: No 7. Do you ever use alcohol or drugs while you are by yourself, or ALONE?: No 8. Do you ever FORGET things you did while using alcohol or drugs?: No 9. Do your FAMILY or FRIENDS ever tell you that you should cut down on your drinking or drug use?: No 10. Have you ever gotten into TROUBLE while you were using alcohol or drugs?: No Total CRAFFT+N Score: : 0 Electronically signed by: Hallie Car MD Normal [facility] Call Worker Person Authentication Interface Message Text Rhonda Cohen is a 16 y.o. female patient. PHQ9 Assessment With Score Performed by: Hallie Car MD Authorized by: Hallie Car MD PHQ-9 See PHQ9 Flowsheet Feeling down, depressed, irritable or hopeless: Several days Little interest or pleasure in doing things: More than half the days Trouble falling or staying sleep, or sleeping too much: More than half the days Poor appetite, weight loss, or overeating: Several days Feeling tired or having little energy: More than half the days Feeling bad about yourself - or feeling that you are a failure, or have let yourself or your family down: More than half the days Trouble concentrating on things, like school work, reading or watching TV: Several days Moving or speaking so slowly that other people could have noticed. Or the opposite - being so fidgety or restless that you were moving around a lot more than usual: Several days Thoughts that you would be better off , or of hurting yourself in some way: More than half the days In the past year have you felt depressed or sad most days, even if you felt OK sometimes?: Yes If you are experiencing any of the problems on this form, how difficult have these problems made it for you to do your work, take care of things at home or get along with other people?: Somewhat difficult Has there been a time in the past month when you have had serious thoughts about ending your life?: No Have you ever, in your whole life, tried to kill yourself or made a suicide attempt?: No PHQ-9 Total Score: 14 Electronically signed by: Hallie aCr MD [facility] Call Worker Person Authentication Interface Message Text Patient ID: Rhonda Cohen is a 16 y.o. female. Her chief complaint(s) include: 16 YEAR WELL CHILD (Lots of issues/concerns. ) Assessment 1. Routine general medical examination at a health care facility 2. Chronic abdominal pain 3. Nonintractable headache, unspecified chronicity pattern, unspecified headache type 4. Screening for lipoid disorders 5. Adjustment disorder with mixed anxiety and depressed mood 6. Chronic pain of right knee 7. Chronic low back pain, unspecified back pain laterality, unspecified whether sciatica present Plan Rhonda was seen today for 16 year well child. Diagnoses and all orders for this visit: Routine general medical examination at a health care facility - PHQ9 Assessment With Score - Health Risk Assessment - CRAFFT Chronic abdominal pain - AMB Referral To Gastroenterology; Future Nonintractable headache, unspecified chronicity pattern, unspecified headache type - ibuprofen (MOTRIN) 600 MG tablet; Take 1 Tablet (600 mg) by mouth every 6 hours as needed for Pain Screening for lipoid disorders - Finger/Heel Stick - Lipid panel Adjustment disorder with mixed anxiety and depressed mood - sertraline (ZOLOFT) 25 MG tablet; Take 1 Tablet (25 mg) by mouth daily Discussed counseling No current suicidal ideation Reported very supportive Discussed side effects of zoloft including black box warning of suicidal ideation Verbalized understanding Chronic pain of right knee Chronic low back pain, unspecified back pain laterality, unspecified whether sciatica present - AMB Referral To Orthopedic Surgery; Future Return in about 1 year (around 09/13/2022) for well check. Anxiety follow up in 4 weeks Is - declined STD testing Declined all shots today Subjective HPI Comments: Subjective HPI Comments: Anxiety getting worse Previous medicine is not working Depression getting worse as well Having bad headaches She is unaccompanied. 16 YEAR WELL CHILD Home: Rhonda eats meals with family, has an adult to turn to for help and is permitted and able to make independent decisions. Rhonda has no home risk identified. Education: Rhonda is doing well. (Working 2 jobs - works at [employer] ). Eating: Rhonda eats regular meals including fruits and vegetables, eats breakfast, limits fast food and has a calcium source. Rhonda does not have an eating risk identified. Activities & Sports: Rhonda performs at least 1 hour of physical activity daily. Rhonda engages in screen time more than 2 hours daily. Drugs: Rhonda uses alcohol (2 days in last 12 mths - social drinking). Rhonda does not use tobacco, does not use drugs and does not vape. Safety: Rhonda uses seat belt. Rhonda does not use phone/text while driving and has no safety risk identified. Sex: The patient has a sexual partner. (Just got ). Suicidality: Rhonda has ways to cope with stress, has depression and has anxiety. Menstruation Last Menstrual period: LMP from [facility] Patient's last menstrual period was 09/05/2021.. Menstruation: regular periods Output Urine and Stool Pattern: Urine and Stool Pattern: Normal stool pattern, no constipation, normal urine pattern. Stool Consistency: soft Sleep Sleeping Difficulty: no difficulty sleeping Hours of sleep at a time: 5 Teen Anticipatory Guidance The following anticipatory guidance was reviewed during the visit: Nutrition: limit junk food/fast food and soft drinks. Social: avoid or limit screen time. Health: age appropriate dental care. Screenings Previous Vaccine Reactions: No. Tuberculosis Concerns: Negative Tuberculosis Screen Concerns: no TB Risk Factors Hearing Vision Concerns: The caregiver has no concerns about the patient's hearing. The caregiver has no concerns about the patient's vision. Patient is being seen by commercial real estate underwriter or cashier payments received. Hyperlipidemia Concerns: Positive Hyperlipidemia Screen Concerns: parent or grandparent with CA angina peripheral or cerebrovascular disease <55 years (Mom had a stroke - TSA because of control pill ) She is unaccompanied. No languages and literature instructor was used. 16 YEAR WELL CHILD Primary Care Review of Systems Objective Vital Signs 09/13/21 1456 BP: 122/58 Pulse: 86 Weight: 59.4 kg Height: 161 cm Body mass index is 22.92 kg/m . Physical Exam Constitutional: She appears well. She is active. No distress. HENT: Head: Atraumatic. Ears: Right Ear: Tympanic membrane and external ear normal. Left Ear: Tympanic membrane and external ear normal. Nose: Nose normal. Mouth/Throat: Mucous membranes are moist. Dentition is normal. Oropharynx is clear. Eyes: Conjunctivae and EOM are normal. No strabismus. Pupils are equal, round, and reactive to light. Neck: Neck supple. Thyroid normal. Cardiovascular: Normal rate, regular rhythm, S1 (more content not included)... Normal [facility] Progress Noteon 08-09-2021 Call Worker Person Authentication Interface Message Text Patient ID: Rhonda Cohen is a 16 y.o. female. Her chief complaint(s) include: Ear Pain and Nausea Assessment 1. Acute sinusitis, recurrence not specified, unspecified location 2. Sore throat 3. Abdominal pain, unspecified abdominal location Plan Rhonda was seen today for ear pain and nausea. Diagnoses and all orders for this visit: Acute sinusitis, recurrence not specified, unspecified location - azithromycin (ZITHROMAX) 250 MG tablet; Take 2 Tablets (500 mg) by mouth every 24 hours for 1 day, THEN 1 Tablet (250 mg) every 24 hours for 4 days. Sore throat - POCT rapid strep A antigen - Strep culture (Clinic Collect) Abdominal pain, unspecified abdominal location - POCT urinalysis dipstick - AMB Referral To Gastroenterology; Future - POCT urine HCG - Urine culture (Clinic Collect) Discussed to follow up with GI regarding her abdominal pain. Discussed other differentials including ovarian cyst. Discussed ovarian torsion and to go to ER if severe pain, worsening pain, unable to move comfortably due to pain, right lower side pain, unable to keep hydrated or other concerns Discussed STD testing- pt declined. Discussed to continue condoms Return for ER if no improvement or worsening/severe pain. Subjective HPI Comments: 16 y/o with hx of chronic abdominal pain here for congestion Has had congestion the past week and getting worse. Getting sinus pressure. Did get tested for covid 2 days ago and negative. Feels pressure in both ear (R>L). No fever. No coughing. Sore throat in the morning and resolves as the day goes. No trouble breathing/SOB. No vomiting/diarrhea. No sick contacts. No covid exposures Has hx of chronic abdominal pain and follow GI- has intermittent left side sharp abdominal pain the past several months. Doesn't think related to menses. Normal BM. No trauma. No constipation. Has loosier stools but not diarrhea. No bloody stools. [place] nauseated. No vomiting. Gets epigastric pain too. Appetite has been less but keeping hydrated. No dysuria. Is sexually active and uses condoms. Did preg test at home and negative on Thursday Feels like she might have some acid reflux. Doesn't take meds like tums because she is sensitive to it. States she is allergic' to a lot of medications but not sure the names of it. Would know it if she heard it Accompanied by self: with . Review of Systems Gastrointestinal: Positive for nausea. Objective Vital Signs 08/09/21 1415 Temp: 36.7 C (98.1 F) TempSrc: Temporal Weight: 58 kg There is no height or weight on file to calculate BMI. Physical Exam Constitutional: She appears well. She is active. No distress. HENT: Head: Atraumatic. Sinus tenderness present. Ears: Right Ear: Tympanic membrane normal. Left Ear: Tympanic membrane normal. Nose: Nasal discharge present. Mouth/Throat: Mucous membranes are moist. Pharynx erythema present. Tonsils are 2+ on the right. Tonsils are 2+ on the left. No tonsillar exudate. Eyes: Conjunctivae and EOM are normal. Pupils are equal, round, and reactive to light. Right conjunctiva is not injected. Left conjunctiva is not injected. Neck: Neck supple. Cardiovascular: Normal rate, regular rhythm, S1 normal and S2 normal. Heart murmur not heard. Pulmonary/Chest: Effort normal and breath sounds normal. There is normal air entry. No stridor. No respiratory distress. Air movement is not decreased. She has no wheezes. She has no rhonchi. She has no rales. Exhibits no retraction. No tachpynea Abdominal: Soft. Bowel sounds are normal. She exhibits no distension. There is abdominal tenderness (epigastric tenderness, no RLQ pain, LLQ tenderness, able to climb up and down exam table). There is no rebound and no guarding. Able to climb up and down exam table without discomfort Musculoskeletal: Cervical back: Normal range of motion and neck supple. No rigidity. Lymphadenopathy: Right anterior cervical adenopathy present. Left anterior (shotty cervical LAD BL, FROM, no nuchal rigidity) cervical adenopathy present. Neurological: She is alert. Skin: Capillary refill takes less than 3 seconds. Skin is warm. Findings: No rash. Vitals reviewed: Temperature 36.7 C (98.1 F), temperature source Temporal, weight 58 kg, last menstrual period 08/03/2021. Last Result POCT urine HCG Collection Time: 08/09/21 3:22 PM Result Value Ref Range hCG Urine POCT Negative Negative Control Line *Present Clear Background *Present Lot Number [id number] POCT urinalysis dipstick Collection Time: 08/09/21 3:00 PM Result Value Ref Range POCT, Leukocytes, Urine Trace (A) Negative POCT Nitrite, Urine Negative Negative POCT Protein, Urine Negative Negative - Trace mg/dl POCT Urine pH 7.0 5.0 - 8.0 pH POCT Blood, Urine Trace Non-Hemolyzed (A) Negative POCT Urine Specific [place] 1.015 1.005 - 1.030 POCT Ketones, Urine Moderate (40mg/dL) (A) Negative mg/dl POCT Glucose, Urine Negative Ne (more content not included)... Normal [facility] Strep Cultureon 08-09-2021 Strep Culture Is this specimen being sent to an external lab?->No Release to patient->Automatic 16814&Throat swab^^^Throat swab&Throat swab Strep Culture: No Beta hemolytic Streptococci isolated. Source: THRSW Collected: 08/09/21 14:43 Site: Throat swab Received : 08/09/21 23:07 Strep Culture FINAL 08/11/21 10:04 No Beta hemolytic Streptococci isolated. Normal [facility] Comment on above: Performed By: #### S TREHue #### [place] [address] Urine Cultureon 08-09-2021 Bacteria identified Cx Nom (U) Is this specimen being sent to an external lab?->No Release to patient->Automatic 33329&Urine-Bladder^ ^^Urine&Urine Urine Culture: <10,000 CFU/ml of Normal skin/urogenital shine present Source: URNBL Collected: 08/09/21 15:17 Site: Urine Received : 08/09/21 22:48 Urine Culture FINAL 08/11/21 11:32 <10,000 CFU/ml of Normal skin/urogenital shine present Normal [facility] Comment on above: Performed By: #### U RINE #### [facility] of [address] [address] .Auto Diffon 08-14-2020 Ammonia (P) [Mass/Vol] 0.90 10 3/mcL Normal 0.15-1.00 [facility] ([place]) Comment on above: Performed By: #### B MP #### [place] [address] #### CBC, ANEU, ADIFF #### [address] [address] Basophils (Bld) [#/Vol] 0.10 10 3/mcL Normal 0.00-0.19 [facility] ([place]) Comment on above: Performed By: #### B MP #### [place] [address] #### CBC, ANEU, ADIFF #### [address] [address] Basophils/100 WBC (Bld) 0.9 % Normal 0.0-2.5 A [facility] ([place]) Comment on above: Performed By: #### B MP #### [place] [id number] #### CBC, ANEU, ADIFF #### [address] [address] Eosinophils (Bld) [#/Vol] 0.10 10 3/mcL Normal 0.00-0.40 [facility] ([place]) Comment on above: Performed By: #### B MP #### [address] [address] #### CBC, ANEU, ADIFF #### [address] [address] Eosinophils/100 WBC (Bld) 1.6 % Normal 0.0-7.0 [facility] ([place]) Comment on above: Performed By: #### B MP #### [address] [address] #### CBC, ANEU, ADIFF #### [address] [address] Lymphocytes (Bld) [#/Vol] 3.30 10 3/mcL Normal 0.77-3.85 [facility] ([place]) Comment on above: Performed By: #### B MP #### [address] [address] #### CBC, ANEU, ADIFF #### [address] [address] Lymphocytes/100 WBC (Bld) 38.7 % Normal 10.0-50.0 [facility] ([place]) Comment on above: Performed By: #### B MP #### [place] [address] #### CBC, ANEU, ADIFF #### [address] [address] Monocytes/100 WBC (Bld) 10.2 % Normal 1.7-13.0 A [facility] ([place]) Comment on above: Performed By: #### B MP #### [address] [address] #### CBC, ANEU, ADIFF #### [address] [address] Neutrophils/100 WBC (Bld) 48.6 % Normal 37.0-80.0 [facility] ([place]) Comment on above: Performed By: #### B MP #### [address] [address] #### CBC, ANEU, ADIFF #### [address] [address] .NEUABSon 08-14-2020 Neutrophils (Bld) [#/Vol] 4.10 10 3/mcL Normal 2.85-6.16 [facility] ([place] Comment on above: Performed By: #### B MP #### [place] [address] #### CBC, ANEU, ADIFF #### [address] [address] BMPon 08-14-2020 Calcium [Mass/Vol] 9.8 mg/dL Normal 8.4-10.2 [facility] ([place] Comment on above: Performed By: #### B MP #### [place] [address] #### CBC, ANEU, ADIFF #### [address] [address] Chloride [Moles/Vol] 103 mmol/L Normal 98-107 [facility] ([place] Comment on above: Performed By: #### B MP #### [place] [address] #### CBC, ANEU, ADIFF #### [place] [address] CO2 [Moles/Vol] 28 mmol/L Normal 22-29 [facility] ([place] Comment on above: Performed By: #### B MP #### [place] [address] #### CBC, ANEU, ADIFF #### [address] [address] Creatinine [Mass/Vol] 0.68 mg/dL Normal 0.55-1.02 [facility] ([place]) Comment on above: Performed By: #### B MP #### [place] [address] #### CBC, ANEU, ADIFF #### [address] [address] Electrolyte Balance 10.0 mEq/L Normal [facility] ([place] Comment on above: Performed By: #### B MP #### [address] [address] #### CBC, ANEU, ADIFF #### [address] [address] Glucose [Mass/Vol] 88 mg/dL Normal 70-105 [facility] ([place] Comment on above: Performed By: #### B MP #### [address] [address] #### CBC, ANEU, ADIFF #### [address] [address] Potassium [Moles/Vol] 4.8 mmol/L Normal 3.5-5.1 [facility] ([place] Comment on above: Performed By: #### B MP #### [address] [address] #### CBC, ANEU, ADIFF #### [address] [address] Sodium [Moles/Vol] 141 mmol/L Normal 136-145 [facility] ([place] Comment on above: Performed By: #### B MP #### [address] [address] #### CBC, ANEU, ADIFF #### [address] [address] Urea nitrogen [Mass/Vol] 13 mg/dL Normal 7-18 [facility] ([place] Comment on above: Performed By: #### B MP #### [address] [address] #### CBC, ANEU, ADIFF #### [address] [address] Urea nitrogen/Creatinine [Mass ratio] 19 ratio Normal 7-27 [facility] ([place] Comment on above: Performed By: #### B MP #### [address] [address] #### CBC, ANEU, ADIFF #### [address] [address] CBCon 08-14-2020 Erythrocyte distribution width (RBC) [Ratio] 12.7 % Normal 11.5-14.5 [facility] ([place] Comment on above: Performed By: #### B MP #### [place] [address] #### CBC, ANEU, ADIFF #### [address] [address] Hematocrit (Bld) [Volume fraction] 39.3 % Normal 37.0-47.0 [facility] ([place] Comment on above: Performed By: #### B MP #### [place] [address] #### CBC, ANEU, ADIFF #### [address] [address] Hemoglobin (Bld) [Mass/Vol] 13.6 G/dL Normal 12.0-16.0 [facility] ([place] Comment on above: Performed By: #### B MP #### [place] [address] #### CBC, ANEU, ADIFF #### [address] [address] MCH (RBC) [Entitic mass] 29.0 pg Normal 27.0-31.2 [facility] ([place] Comment on above: Performed By: #### B MP #### [place] [address] #### CBC, ANEU, ADIFF #### [address] [address] MCHC (RBC) [Mass/Vol] 34.5 G/dL Normal 33.0-37.0 [facility] ([place] Comment on above: Performed By: #### B MP #### [place] [address] #### CBC, ANEU, ADIFF #### [address] [address] MCV (RBC) [Entitic vol] 84.2 fL Normal 80.0-94.0 A [facility] ([place]) Comment on above: Performed By: #### B MP #### [address] [address] #### CBC, ANEU, ADIFF #### [address] [address] Platelet mean volume (Bld) [Entitic vol] 8.2 fL Normal 7.4-10.4 [facility] ([place] Comment on above: Performed By: #### B MP #### [place] [address] #### CBC, ANEU, ADIFF #### [address] [address] Platelets (Bld) [#/Vol] 295 10 3/mcL Normal 130-400 [facility] ([place] Comment on above: Performed By: #### B MP #### [place] [address] #### CBC, ANEU, ADIFF #### [address] [address] RBC (Bld) [#/Vol] 4.67 10 6/mcL Normal 4.20-5.40 [facility] ([place] Comment on above: Performed By: #### B MP #### [place] [address] #### CBC, ANEU, ADIFF #### [address] [address] WBC (Bld) [#/Vol] 8.40 10 3/mcL Normal 4.60-10.80 [facility] ([place] Comment on above: Performed By: #### B MP #### [place] [address] #### CBC, ANEU, ADIFF #### [address] [address] [address] ABD/PELVIS W/ IV CONTRAST ONLYon 08-14-2020 CT ABD/PELVIS W/ IV CONTRAST ONLY ORIGINAL CT ABD/PELVIS W/ IV CONTRAST ONLY This exam was performed according to our departmental dose optimization program, and includes the following measures where applicable: automated exposure control, adjustment of the mAs and/or kVp according to patient size and/or exam, and an iterative reconstruction algorithm. CLINICAL STATEMENT: pain. RIGHT lower quadrant pain COMPARISON: None FINDINGS: The included lung bases are clear. The liver, spleen, pancreas, adrenal glands, kidneys and ureters, gallbladder and common duct are normal. The distal esophagus, stomach, small bowel, and the large bowel are normal. There is no pericolonic fat stranding or bowel wall thickening. Normal appendix is demonstrated. The bladder is incompletely distended, with no focal abnormality. The uterus and LEFT ovary are normal. The RIGHT ovary is mildly enlarged and demonstrates a 1.8 cm ovarian cyst with somewhat hyperechoic border. There is trace amount of free fluid in the pelvis. There is no free air, or lymphadenopathy. The abdominal aorta, IVC, and portal vein demonstrate normal caliber and opacification. The osseous structures are intact. IMPRESSION: Probable small RIGHT hemorrhagic ovarian cyst. Normal appendix. I have personally reviewed the images of this examination and agree with the resident's findings and interpretation. Interpreted By: Michael Olmos Preliminary Report By: Quentin Rinaldi MD Electronically Signed By: Michael Olmos Dictated Date: 08/14/2020 7:19:53 PM Prelim Date: 08/14/2020 7:25:20 PM Sign Date: 08/14/2020 8:00:54 PM Ordering Provider:Bal Wren Normal [facility] ([place] PREGUon 08-14-2020 HCG ( test) Ql (U) Negative Normal [facility] ([place] Comment on above: Performed By: #### P REGU UA #### [place] [address] test (u) int HCG not detected. [facility] ([place] Comment on above: Performed By: #### P REGU UA #### [place] [address] [place] [address] UAon 08-14-2020 Color (U) Yellow Normal [facility] ([place] Comment on above: Performed By: #### P REGU, UA #### [place] [address] [address] Glucose (U) [Mass/Vol] Negative Normal Negative [facility] ([place] Comment on above: Performed By: #### P REGU, UA #### [place] [address] Ketones Ql (U) 40 mg/dL Abnormal Negative [facility] ([place] Comment on above: Performed By: #### P REGU, UA #### [place] [address] UA Appear Clear Normal Clear [facility] ([place] Comment on above: Performed By: #### P REGU, UA #### [place] [address] UA Blood Negative Normal Negative [facility] ([place] Comment on above: Performed By: #### P REGU, UA #### [place] [address] UA Leuk Est Negative Normal Negative [facility] ([place] Comment on above: Performed By: #### P REGU, UA #### [place] [address] UA Nitrite Negative Normal Negative [facility] ([place] Comment on above: Performed By: #### P REGU, UA #### [place] [address] UA pH 5.5 Normal 5.0 - 8.0 [facility] ([place] Comment on above: Performed By: #### P REGU, UA #### [place] [address] UA Protein Trace Normal Negative [facility] ([place] Comment on above: Performed By: #### P REGU, UA #### [address] [address] UA Spec Grav >=1.030 Abnormal 1.015-1.025 [facility] ([place] Comment on above: Performed By: #### P REGU, UA #### [place] [address] UA Specimen Type Clean Catch Normal [facility] ([place] Comment on above: Performed By: #### P REGU, UA #### [place] [address] [place], [place] [address] UA Urobilinogen 0.2 E.U./dL Normal 0.2-1.0 [facility] ([place] Comment on above: Performed By: #### P REGU, UA #### [place] [address] [place], [place] [address] Urobilinogen Qn (U) Small Abnormal Negative [facility] ([place] Comment on above: Performed By: #### P REGU, UA #### [place] [address] [place], [place] [address] CR Chest PA/LATon 08-10-2020 CR Chest PA/LAT Patient Name: RHONDA COHEN Diagnostic Radiology ACCESSION EXAM DATE/TIME PROCEDURE ORDERING PROVIDER [id number] 08/10/2020 21:15 EST CR Chest PA and LAT BERNARD ANAYA CPT code 89644 Reason For Exam (CR Chest PA and LAT) pain Report CHEST: CLINICAL INDICATION: Pain TECHNIQUE: PA and Lateral COMPARISON: None FINDINGS: The heart and mediastinum are normal. Vague opacity within the right lower lobe. There is no evidence for pleural effusion. The osseous structures are unremarkable. IMPRESSION: Vague opacity within the right lower lobe which may represent a developing infiltrate versus breast shadowing/summation artifact. Correlate clinically. Report Dictated on Final Dictating Physician: DO GARNETT RACHEL Signed Date and Time: 08/11/2020 11:04 am Signed by: DO GARNETT RACHEL Transcribed Date and Time: 08/11/2020 11:05 Normal [facility] Vital Signs Date Time Vital Sign Value Performing Clinician Facility 03-20-2025 10:36-0400 Body mass index (BMI) [Ratio] 34.33 kg/m2 Eduin Dominguez MD Work Phone: [facility] 03-20-2025 10:36-0400 Body weight 90.72 kg Eduin Dominguez MD Work Phone: [facility] 07-14-2025 10:36-0400 Diastolic blood pressure 70 mm[Hg] Eduin Dominguez MD Work Phone: [facility] 03-20-2025 10:36-0400 Systolic blood pressure 106 mm[Hg] Eduin Dominguez MD Work Phone: [facility] 03-14-2025 08:40-0400 Body mass index (BMI) [Ratio] 33.44 kg/m2 Mc Diamond MD Work Phone: [facility] 03-14-2025 08:40-0400 Body weight 88.36 kg Mc Diamond MD Work Phone: [facility] 03-14-2025 08:40-0400 Diastolic blood pressure 60 mm[Hg] Mc Diamond MD Work Phone: [facility] 03-14-2025 08:40-0400 Systolic blood pressure 100 mm[Hg] Mc Diamond MD Work Phone: [facility] 03-06-2025 08:12-0400 Body mass index (BMI) [Ratio] 32.27 kg/m2 Swati Plotts [employer] EXAMINER.CNM Work Phone: [facility] 03-06-2025 08:12-0400 Body weight 85.28 kg Swati Plotts [employer] EXAMINER.CNM Work Phone: [facility] 03-06-2025 08:12-0400 Diastolic blood pressure 68 mm[Hg] Swati Plotts [employer] EXAMINER.CNM Work Phone: [facility] 03-06-2025 08:12-0400 Systolic blood pressure 114 mm[Hg] Swati Plotts [employer] EXAMINER.CNM Work Phone: [facility] 02-20-2025 09:08-0400 Body mass index (BMI) [Ratio] 31.24 kg/m2 Shira Gloria [employer] EXAMINER.BOOKING SUPERVISOR Work Phone: [facility] 02-20-2025 09:08-0400 Body weight 82.56 kg Shira Gloria [employer]OTH [employer] EXAMINER.BOOKING SUPERVISOR Work Phone: [facility] 02-20-2025 09:08-0400 Diastolic blood pressure 64 mm[Hg] Shira Gloria APRN.BOOKING SUPERVISOR Work Phone: [facility] 02-20-2025 09:08-0400 Systolic blood pressure 110 mm[Hg] Shira Gloria APRN.BOOKING SUPERVISOR Work Phone: [facility] 02-16-2025 12:06-0400 Diastolic blood pressure 62 mm[Hg] [facility] 02-16-2025 12:06-0400 Systolic blood pressure 116 mm[Hg] [facility] 02-16-2025 10:00-0400 Body temperature 97.81 [degF] Treatment Wstr Work Phone: [facility] 02-16-2025 10:00-0400 Diastolic blood pressure 61 mm[Hg] Treatment Wstr Work Phone: [facility] 02-16-2025 10:00-0400 Heart rate 67 /min Treatment Wstr Work Phone: [facility] 02-16-2025 10:00-0400 Systolic blood pressure 102 mm[Hg] Treatment Wstr Work Phone: [facility] 02-13-2025 09:37-0400 Body temperature 96.49 [degF] Treatment Wstr Work Phone: [facility] 02-13-2025 09:37-0400 Diastolic blood pressure 59 mm[Hg] Treatment Wstr Work Phone: [facility] 02-13-2025 09:37-0400 Heart rate 102 /min Treatment Wstr Work Phone: [facility] 02-13-2025 09:37-0400 SaO2% (BldA) [Mass fraction] 99 % Treatment Wstr Work Phone: [facility] 02-13-2025 09:37-0400 Systolic blood pressure 94 mm[Hg] Treatment Wstr Work Phone: [facility] 02-08-2025 09:17-0400 Body mass index (BMI) [Ratio] 30.86 kg/m2 Shira Gloria APRN.BOOKING SUPERVISOR Work Phone: [facility] 02-08-2025 09:17-0400 Body weight 81.56 kg Shira Gloria [employer] EXAMINER.BOOKING SUPERVISOR Work Phone: [facility] 02-08-2025 09:17-0400 Diastolic blood pressure 70 mm[Hg] Shira Gloria [employer]OTH COLORS EXAMINER.BOOKING SUPERVISOR Work Phone: [facility] 02-08-2025 09:17-0400 Systolic blood pressure 122 mm[Hg] Shira Gloria [employer]OTH COLORS EXAMINER.BOOKING SUPERVISOR Work Phone: [facility] 02-06-2025 12:00-0400 Body temperature 98.6 [degF] Treatment Wstr Work Phone: [facility] 02-06-2025 12:00-0400 Diastolic blood pressure 73 mm[Hg] Treatment Wstr Work Phone: [facility] 02-06-2025 12:00-0400 Heart rate 110 /min Treatment Wstr Work Phone: [facility] 02-06-2025 12:00-0400 Respiratory rate 18 /min Treatment Wstr Work Phone: [facility] 02-06-2025 12:00-0400 SaO2% (BldA) [Mass fraction] 99 % Treatment Wstr Work Phone: [facility] 02-06-2025 12:00-0400 Systolic blood pressure 113 mm[Hg] Treatment Wstr Work Phone: [facility] 01-20-2025 10:54-0400 Body mass index (BMI) [Ratio] 28.49 kg/m2 Mc Diamond MD Work Phone: [facility] 01-20-2025 10:54-0400 Body weight 75.3 kg Mc Diamond MD Work Phone: [facility] 01-20-2025 10:54-0400 Diastolic blood pressure 60 mm[Hg] Mc Diamond MD Work Phone: [facility] 01-20-2025 10:54-0400 Systolic blood pressure 102 mm[Hg] Mc Diamond MD Work Phone: [facility] 12-28-2024 09:45-0400 Body mass index (BMI) [Ratio] 27.46 kg/m2 Vera Hatch APRN.CNM Work Phone: [facility] 12-28-2024 09:45-0400 Body weight 72.58 kg Vera Hatch [employer] EXAMINER.CNM Work Phone: [facility] 12-28-2024 09:45-0400 Diastolic blood pressure 62 mm[Hg] Vera Hatch [employer] EXAMINER.CNM Work Phone: [facility] 12-28-2024 09:45-0400 Systolic blood pressure 108 mm[Hg] Veraadriel Hatch [employer] EXAMINER.CNM Work Phone: [facility] 12-05-2024 15:29-0400 Diastolic blood pressure 62 mm[Hg] Dr. Ezekiel Villarreal MD Work Phone: [facility] 12-05-2024 15:29-0400 Heart rate 105 /min Dr. Ezekiel Villarreal MD Work Phone: [facility] 12-05-2024 15:29-0400 Respiratory rate 15 /min Dr. Ezekiel Villarreal MD Work Phone: [facility] 12-05-2024 15:29-0400 SaO2% (BldA) [Mass fraction] 97 % Dr. Ezekiel Villarreal MD Work Phone: [facility] 12-05-2024 15:29-0400 Systolic blood pressure 115 mm[Hg] Dr. Ezekiel Villarreal MD Work Phone: [facility] 12-05-2024 10:35-0400 Body mass index (BMI) [Ratio] 25.7 kg/m2 Dr. Ezekiel Villarreal MD Work Phone: [facility] 12-05-2024 10:35-0400 Body weight 68.[address] Ezekiel Villarreal MD Work Phone: [facility] 12-05-2024 10:32-0400 Body height 162.[address] Ezekiel Villarreal MD Work Phone: [facility] 12-05-2024 10:32-0400 Body temperature 98.1 [degF] Dr. Ezekiel Villarreal MD Work Phone: [facility] 12-05-2024 09:51-0400 Body mass index (BMI) [Ratio] 25.58 kg/m2 Maria Gibson MD Work Phone: [facility] 12-05-2024 09:51-0400 Body weight 67.59 kg Maria Gibson MD Work Phone: [facility] 12-05-2024 09:51-0400 Diastolic blood pressure 78 mm[Hg] Maria Gibson MD Work Phone: [facility] 12-05-2024 09:51-0400 Systolic blood pressure 124 mm[Hg] Maria Gibson MD Work Phone: [facility] 11-28-2024 09:05-0400 Body mass index (BMI) [Ratio] 25.23 kg/m2 Vera Hatch APRN.CNM Work Phone: [facility] 11-28-2024 09:05-0400 Body weight 66.68 kg Vera Hatch APRN.CNM Work Phone: [facility] 11-28-2024 09:05-0400 Diastolic blood pressure 62 mm[Hg] Vera Hatch APRNDarrenCNM Work Phone: [facility] 11-28-2024 09:05-0400 Systolic blood pressure 110 mm[Hg] Vera Hatch APRNDarrenCNM Work Phone: [facility] 11-01-2024 08:01-0500 Body mass index (BMI) [Ratio] 23.34 kg/m2 Vera Hatch APRN.CNM Work Phone: [facility] 11-01-2024 08:01-0500 Body weight 61.69 kg Vera Hatch [employer] EXAMINER.CNM Work Phone: [facility] 11-01-2024 08:01-0500 Diastolic blood pressure 68 mm[Hg] Vera Hatch [employer] COL[employer] EXAMINER.CNM Work Phone: [facility] 11-01-2024 08:01-0500 Systolic blood pressure 110 mm[Hg] Vera Hatch [employer] EXAMINER.CNM Work Phone: [facility] 10-28-2024 09:27-0500 Body mass index (BMI) [Ratio] 23 kg/m2 Vera Hatch [employer] COL[employer] EXAMINER.CNM Work Phone: [facility] 10-28-2024 09:27-0500 Body weight 60.78 kg Vera Hatch [employer] EXAMINER.CNM Work Phone: [facility] 10-28-2024 09:27-0500 Diastolic blood pressure 64 mm[Hg] Vera Hatch [employer]OTH COLORS EXAMINER.CNM Work Phone: [facility] 10-28-2024 09:27-0500 Systolic blood pressure 110 mm[Hg] Vera Hatch [employer] EXAMINER.CNM Work Phone: [facility] 10-07-2024 08:44-0500 Body mass index (BMI) [Ratio] 22.99 kg/m2 Yanci Lewis [employer] EXAMINER.BOOKING SUPERVISOR Work Phone: [facility] 10-07-2024 08:44-0500 Body weight 60.75 kg Yanci Lewis [employer] EXAMINER.BOOKING SUPERVISOR Work Phone: [facility] 10-07-2024 08:44-0500 Diastolic blood pressure 57 mm[Hg] Yanci Lewis CLOTH COLORS EXAMINER.BOOKING SUPERVISOR Work Phone: [facility] 10-07-2024 08:44-0500 Heart rate 105 /min Yanci Lewis [employer]OTH COLORS EXAMINER.BOOKING SUPERVISOR Work Phone: [facility] 10-07-2024 08:44-0500 Respiratory rate 16 /min Yanci Lewis [employer]OTH COLORS EXAMINER.BOOKING SUPERVISOR Work Phone: [facility] 10-07-2024 08:44-0500 SaO2% (BldA) [Mass fraction] 97 % Yanci Lewis [employer]OTH COL[employer] EXAMINER.BOOKING SUPERVISOR Work Phone: [facility] 10-07-2024 08:44-0500 Systolic blood pressure 96 mm[Hg] Yanci Lewis [employer]OTH COLORS EXAMINER.BOOKING SUPERVISOR Work Phone: [facility] 10-03-2024 08:39-0500 Diastolic blood pressure 66 mm[Hg] Vera Hatch [employer]OTH COLORS EXAMINER.CNM Work Phone: [facility] 10-03-2024 08:39-0500 Systolic blood pressure 108 mm[Hg] Vera Hatch [employer]OTH COLORS EXAMINER.CNM Work Phone: [facility] 09-16-2024 09:01-0500 Body height 162.6 cm Vera Hatch CLOTH COLORS EXAMINER.CNM Work Phone: [facility] 09-16-2024 09:01-0500 Body mass index (BMI) [Ratio] 23.17 kg/m2 Vera Hatch CLOTH COLORS EXAMINER.CNM Work Phone: [facility] 09-16-2024 09:01-0500 Body weight 61.24 kg Vera Hatch CLOTH COLORS EXAMINER.CNM Work Phone: [facility] 09-16-2024 09:01-0500 Diastolic blood pressure 58 mm[Hg] Vera Hatch CLOTH COLORS EXAMINER.CNM Work Phone: [facility] 09-16-2024 09:01-0500 Systolic blood pressure 98 mm[Hg] Vera Hatch CLOTH COLORS EXAMINER.CNM Work Phone: [facility] 08-26-2024 08:49-0500 Body mass index (BMI) [Ratio] 23.52 kg/m2 Maria Gibson MD Work Phone: [facility] 08-26-2024 08:49-0500 Body weight 62.14 kg Maria Gibson MD Work Phone: [facility] 08-26-2024 08:49-0500 Diastolic blood pressure 60 mm[Hg] Maria Gibson MD Work Phone: [facility] 08-26-2024 08:49-0500 Systolic blood pressure 108 mm[Hg] Maria Gibson MD Work Phone: [facility] 08-16-2024 13:09-0500 Body height 162.6 cm Vera Hatch CLOTH COLORS EXAMINER.CNM Work Phone: [facility] 08-16-2024 13:09-0500 Body mass index (BMI) [Ratio] 24.2 kg/m2 Vera Hatch [employer]OTH COLORS EXAMINER.CNM Work Phone: [facility] 08-16-2024 13:09-0500 Body weight 63.96 kg Vera Hatch CLOTH COLORS EXAMINER.CNM Work Phone: [facility] 08-16-2024 13:09-0500 Diastolic blood pressure 60 mm[Hg] Vera Hatch CLOTH COLORS EXAMINER.CNM Work Phone: [facility] 08-16-2024 13:09-0500 Systolic blood pressure 100 mm[Hg] Vera Hatch CLOTH COLORS EXAMINER.CNM Work Phone: [facility] 07-30-2024 11:39-0500 Body height 162.6 cm Du Ball CLOTH COLORS EXAMINER.BOOKING SUPERVISOR Work Phone: [facility] 07-30-2024 11:39-0500 Body mass index (BMI) [Ratio] 23.82 kg/m2 Du Ball CLOTH COLORS EXAMINER.BOOKING SUPERVISOR Work Phone: [facility] 07-30-2024 11:39-0500 Body temperature 97.7 [degF] Du Ball CLOTH COLORS EXAMINER.BOOKING SUPERVISOR Work Phone: [facility] 07-30-2024 11:39-0500 Body weight 62.95 kg Du Ball CLOTH COLORS EXAMINER.BOOKING SUPERVISOR Work Phone: [facility] 07-30-2024 11:39-0500 Diastolic blood pressure 79 mm[Hg] Du Ball CLOTH COLORS EXAMINER.BOOKING SUPERVISOR Work Phone: [facility] 07-30-2024 11:39-0500 Heart rate 95 /min Du Ball CLOTH COLORS EXAMINER.BOOKING SUPERVISOR Work Phone: [facility] 07-30-2024 11:39-0500 Respiratory rate 18 /min Du Ball CLOTH COLORS EXAMINER.BOOKING SUPERVISOR Work Phone: [facility] 07-30-2024 11:39-0500 SaO2% (BldA) [Mass fraction] 99 % Du Ball CLOTH COLORS EXAMINER.BOOKING SUPERVISOR Work Phone: [facility] 07-30-2024 11:39-0500 Systolic blood pressure 113 mm[Hg] Du Ball [employer]OTH COLORS EXAMINER.BOOKING SUPERVISOR Work Phone: [facility] 07-27-2024 18:09-0500 Body mass index (BMI) [Ratio] 24.58 kg/m2 Yanci Lewis CLOTH COLORS EXAMINER.BOOKING SUPERVISOR Work Phone: [facility] 07-27-2024 18:09-0500 Body weight 64.95 kg Yanci Lewis CLOTH COLORS EXAMINER.BOOKING SUPERVISOR Work Phone: [facility] 07-27-2024 18:09-0500 Diastolic blood pressure 85 mm[Hg] Yanci Lewis CLOTH COLORS EXAMINER.BOOKING SUPERVISOR Work Phone: [facility] 07-27-2024 18:09-0500 Heart rate 99 /min Yanci Lewis [employer]OTH COLORS EXAMINER.BOOKING SUPERVISOR Work Phone: [facility] 07-27-2024 18:09-0500 SaO2% (BldA) [Mass fraction] 100 % Yanci Lewis [employer]OTH COLORS EXAMINER.BOOKING SUPERVISOR Work Phone: [facility] 07-27-2024 18:09-0500 Systolic blood pressure 110 mm[Hg] Yanci Lewis [employer]OTH COLORS EXAMINER.BOOKING SUPERVISOR Work Phone: [facility] 07-04-2024 19:18-0400 Body mass index (BMI) [Ratio] 24.07 kg/m2 Alisha Baker PA-C Work Phone: [facility] 07-04-2024 19:18-0400 Body temperature 98.4 [degF] Alisha Baker PA-C Work Phone: [facility] 07-04-2024 19:18-0400 Body weight 63.6 kg Alisha Baker PA-C Work Phone: [facility] 07-04-2024 19:18-0400 Heart rate 74 /min Alisha Baker PA-C Work Phone: [facility] 07-04-2024 19:18-0400 Respiratory rate 18 /min Alisha Baker PA-C Work Phone: [facility] 07-04-2024 19:18-0400 SaO2% (BldA) [Mass fraction] 99 % Alisha Baker PA-C Work Phone: [facility] 06-07-2024 13:45-0400 Diastolic blood pressure 64 mm[Hg] Nurse Work Phone: [facility] 06-07-2024 13:45-0400 Heart rate 88 /min Nurse Work Phone: [facility] 06-07-2024 13:45-0400 Systolic blood pressure 96 mm[Hg] Nurse Work Phone: [facility] 01-27-2024 13:20-0400 Diastolic blood pressure 56 mm[Hg] Mri (I-Stat/1.5t) [facility] 01-27-2024 13:20-0400 Systolic blood pressure 108 mm[Hg] Mri (I-Stat/1.5t) [facility] 01-27-2024 13:16-0400 Heart rate 72 /min Mri (I-Stat/1.5t) [facility] 01-27-2024 13:16-0400 SaO2% (BldA) [Mass fraction] 100 % Mri (I-Stat/1.5t) [facility] 01-16-2024 12:00-0400 Body temperature 97.5 [degF] Vera Walker [employer]OTH COLORS EXAMINER.BOOKING SUPERVISOR Work Phone: [facility] 01-16-2024 12:00-0400 Diastolic blood pressure 85 mm[Hg] Vera Walker [employer]OTH COLORS EXAMINER.BOOKING SUPERVISOR Work Phone: [facility] 01-16-2024 12:00-0400 Heart rate 76 /min Vera Walker [employer]OTH COLORS EXAMINER.BOOKING SUPERVISOR Work Phone: [facility] 01-16-2024 12:00-0400 Respiratory rate 16 /min Vera Walker [employer]OTH COLORS EXAMINER.BOOKING SUPERVISOR Work Phone: [facility] 01-16-2024 12:00-0400 SaO2% (BldA) [Mass fraction] 98 % Vera Walker [employer]OTH COLORS EXAMINER.BOOKING SUPERVISOR Work Phone: [facility] 01-16-2024 12:00-0400 Systolic blood pressure 105 mm[Hg] Vera Walker CLOTH COLORS EXAMINER.BOOKING SUPERVISOR Work Phone: [facility] 01-15-2024 11:54-0400 Body height 162.6 cm Celia Keagan PA-C Work Phone: [facility] 01-15-2024 11:54-0400 Body mass index (BMI) [Ratio] 21.11 kg/m2 Celia Keagan PA-C Work Phone: [facility] 01-15-2024 11:54-0400 Body weight 55.79 kg Celia Keagan PA-C Work Phone: [facility] 01-15-2024 11:54-0400 Diastolic blood pressure 71 mm[Hg] Celia Keagan PA-C Work Phone: [facility] 01-15-2024 11:54-0400 Heart rate 73 /min Celia Keagan PA-C Work Phone: [facility] 01-15-2024 11:54-0400 SaO2% (BldA) [Mass fraction] 99 % Celia Keagan PA-C Work Phone: [facility] 01-15-2024 11:54-0400 Systolic blood pressure 105 mm[Hg] Celia Keagan PA-C Work Phone: [facility] 01-15-2024 09:04-0400 Body mass index (BMI) [Ratio] 21.36 kg/m2 Nnamdi Orosco MD Work Phone: [facility] 01-15-2024 09:04-0400 Body temperature 97.2 [degF] Nnamdi Orosco MD Work Phone: [facility] 01-15-2024 09:04-0400 Body weight 54.7 kg Nnamdi Orosco MD Work Phone: [facility] 01-15-2024 09:04-0400 Diastolic blood pressure 54 mm[Hg] Nnamdi Orosco MD Work Phone: [facility] 01-15-2024 09:04-0400 Heart rate 87 /min Nnamdi Orosco MD Work Phone: [facility] 01-15-2024 09:04-0400 Respiratory rate 16 /min Nnamdi Orosco MD Work Phone: [facility] 01-15-2024 09:04-0400 SaO2% (BldA) [Mass fraction] 98 % Nnamdi Orosco MD Work Phone: [facility] 01-15-2024 09:04-0400 Systolic blood pressure 109 mm[Hg] Nnamdi Orosco MD Work Phone: [facility] 01-07-2024 10:46-0400 Body height 160 cm Du Toledo CLOTH COLORS EXAMINER.BOOKING SUPERVISOR Work Phone: [facility] 01-07-2024 10:46-0400 Body mass index (BMI) [Ratio] 21.36 kg/m2 Du Toledo CLOTH COLORS EXAMINER.BOOKING SUPERVISOR Work Phone: [facility] 01-07-2024 10:46-0400 Body temperature 97.2 [degF] Ducristofer Toledo CLOTH COLORS EXAMINER.BOOKING SUPERVISOR Work Phone: [facility] 01-07-2024 10:46-0400 Body weight 54.7 kg Ducristofer Toledo CLOTH COLORS EXAMINER.BOOKING SUPERVISOR Work Phone: [facility] 01-07-2024 10:46-0400 Diastolic blood pressure 76 mm[Hg] Du Toledo CLOTH COLORS EXAMINER.BOOKING SUPERVISOR Work Phone: [facility] 01-07-2024 10:46-0400 Heart rate 105 /min Du Ball CLOTH COLORS EXAMINER.BOOKING SUPERVISOR Work Phone: [facility] 01-07-2024 10:46-0400 Respiratory rate 18 /min Du Ball CLOTH COLORS EXAMINER.BOOKING SUPERVISOR Work Phone: [facility] 01-07-2024 10:46-0400 SaO2% (BldA) [Mass fraction] 98 % Du Ball CLOTH COLORS EXAMINER.BOOKING SUPERVISOR Work Phone: [facility] 01-07-2024 10:46-0400 Systolic blood pressure 107 mm[Hg] Du Ball CLOTH COLORS EXAMINER.BOOKING SUPERVISOR Work Phone: [facility] 12-24-2023 15:40-0400 Body weight 53.9 kg Claus Brandon CLOTH COLORS EXAMINER.BOOKING SUPERVISOR Work Phone: [facility] 12-16-2023 09:55-0400 Body weight 54.43 kg Maria Gibson MD Work Phone: [facility] 12-16-2023 09:55-0400 Diastolic blood pressure 60 mm[Hg] Maria Gibson MD Work Phone: [facility] 12-16-2023 09:55-0400 Systolic blood pressure 100 mm[Hg] Maria Gibson MD Work Phone: [facility] 12-12-2023 10:57-0400 Body temperature 97.11 [degF] Yanci Lewis CLOTH COLORS EXAMINER.BOOKING SUPERVISOR Work Phone: [facility] 12-12-2023 10:57-0400 Body weight 58 kg Yanci Lewis CLOTH COLORS EXAMINER.BOOKING SUPERVISOR Work Phone: [facility] 12-12-2023 10:57-0400 Diastolic blood pressure 71 mm[Hg] Yanci Lewis CLOTH COLORS EXAMINER.BOOKING SUPERVISOR Work Phone: [facility] 12-12-2023 10:57-0400 Heart rate 112 /min Yanci Lewis CLOTH COLORS EXAMINER.BOOKING SUPERVISOR Work Phone: [facility] 12-12-2023 10:57-0400 SaO2% (BldA) [Mass fraction] 97 % Yanci Lewis [employer]OTH COLORS EXAMINER.BOOKING SUPERVISOR Work Phone: [facility] 12-12-2023 10:57-0400 Systolic blood pressure 126 mm[Hg] Yanci Lewis CLOTH COLORS EXAMINER.BOOKING SUPERVISOR Work Phone: [facility] 08-14-2023 12:54-0500 Body height 161.9 cm Petra Bristow CLOTH COLORS EXAMINER.BOOKING SUPERVISOR Work Phone: [facility] 08-14-2023 12:54-0500 Body weight 52.89 kg Petra Neil [employer]OTH COLORS EXAMINER.BOOKING SUPERVISOR Work Phone: [facility] 08-14-2023 12:54-0500 Diastolic blood pressure 60 mm[Hg] Petra Bristow [employer]OTH COLORS EXAMINER.BOOKING SUPERVISOR Work Phone: [facility] 08-14-2023 12:54-0500 Systolic blood pressure 110 mm[Hg] Petra Bristow CLOTH COLORS EXAMINER.BOOKING SUPERVISOR Work Phone: [facility] 07-07-2023 12:39-0400 Body height 162.6 cm Chrystal Tiffany CLOTH COLORS EXAMINER.BOOKING SUPERVISOR Work Phone: [facility] 07-07-2023 12:39-0400 Body weight 53.52 kg Chrystal Tiffany CLOTH COLORS EXAMINER.BOOKING SUPERVISOR Work Phone: [facility] 07-07-2023 12:39-0400 Diastolic blood pressure 54 mm[Hg] Chrystal Tiffany CLOTH COLORS EXAMINER.BOOKING SUPERVISOR Work Phone: [facility] 07-07-2023 12:39-0400 Heart rate 86 /min Chrystal Tiffany [employer]OTH COLORS EXAMINER.BOOKING SUPERVISOR Work Phone: [facility] 07-07-2023 12:39-0400 SaO2% (BldA) [Mass fraction] 100 % Chrystal Tiffany CLOTH COLORS EXAMINER.BOOKING SUPERVISOR Work Phone: [facility] 07-07-2023 12:39-0400 Systolic blood pressure 104 mm[Hg] Chrystal Tiffany CLOTH COLORS EXAMINER.BOOKING SUPERVISOR Work Phone: [facility] 04-29-2023 09:18-0400 Body height 162.6 cm Du Ball CLOTH COLORS EXAMINER.BOOKING SUPERVISOR Work Phone: [facility] 04-29-2023 09:18-0400 Body temperature 97.5 [degF] Du Ball CLOTH COLORS EXAMINER.BOOKING SUPERVISOR Work Phone: [facility] 04-29-2023 09:18-0400 Body weight 55.79 kg Du Ball CLOTH COLORS EXAMINER.BOOKING SUPERVISOR Work Phone: [facility] 04-29-2023 09:18-0400 Diastolic blood pressure 70 mm[Hg] Du Ball CLOTH COLORS EXAMINER.BOOKING SUPERVISOR Work Phone: [facility] 04-29-2023 09:18-0400 Heart rate 94 /min Du Ball CLOTH COLORS EXAMINER.BOOKING SUPERVISOR Work Phone: [facility] 04-29-2023 09:18-0400 Respiratory rate 16 /min Du Ball [employer]OTH COLORS EXAMINER.BOOKING SUPERVISOR Work Phone: [facility] 04-29-2023 09:18-0400 SaO2% (BldA) [Mass fraction] 99 % Du Ball [employer]OTH COLORS EXAMINER.BOOKING SUPERVISOR Work Phone: [facility] 04-29-2023 09:18-0400 Systolic blood pressure 105 mm[Hg] Du Ball [employer]OTH COLORS EXAMINER.BOOKING SUPERVISOR Work Phone: [facility] 05-27-2022 15:41-0400 Diastolic blood pressure 60 mm[Hg] [facility] Work Phone: 05-27-2022 15:41-0400 Systolic blood pressure 100 mm[Hg] [facility] Work Phone: 05-27-2022 14:38-0400 Heart rate 80 /min [facility] Work Phone: 05-27-2022 14:38-0400 Respiratory rate 16 /min [facility] Work Phone: 05-27-2022 14:38-0400 SaO2% (BldA) [Mass fraction] 100 % [facility] Work Phone: 05-27-2022 11:01-0400 Body height 162.56 cm [facility] Work Phone: 05-27-2022 11:01-0400 Body mass index (BMI) [Percentile] Per age and sex 19.7 % [facility] Work Phone: 05-27-2022 11:01-0400 Body mass index (BMI) [Ratio] 19.3 kg/m2 [facility] Work Phone: 05-27-2022 11:01-0400 Body temperature 96.7 [degF] [facility] Work Phone: 05-27-2022 11:01-0400 Body weight 51.25 kg [facility] Work Phone: 05-01-2022 08:09-0400 Body height 162.4 cm Prema Mulligan MD Work Phone: [facility] 05-01-2022 08:09-0400 Body weight 53.71 kg Prema Mulligan MD Work Phone: [facility] 05-01-2022 08:09-0400 Diastolic blood pressure 68 mm[Hg] Prema Mulligan MD Work Phone: [facility] 05-01-2022 08:09-0400 Heart rate 77 /min Prema Mulligan MD Work Phone: [facility] 05-01-2022 08:09-0400 Respiratory rate 16 /min Prmea Mulligan MD Work Phone: [facility] 05-01-2022 08:09-0400 SaO2% (BldA) [Mass fraction] 98 % Prema Mulligan MD Work Phone: [facility] 05-01-2022 08:09-0400 Systolic blood pressure 106 mm[Hg] Prema Mulligan MD Work Phone: [facility] 02-19-2022 16:06-0400 Body weight 53.52 kg Ayana Umana MD Work Phone: [facility] 02-19-2022 16:06-0400 Diastolic blood pressure 60 mm[Hg] Ayana Umana MD Work Phone: [facility] 02-19-2022 16:06-0400 Systolic blood pressure 104 mm[Hg] Ayana Umana MD Work Phone: [facility] 01-03-2022 10:32-0400 Body weight 53.62 kg Ayana Umana MD Work Phone: [facility] 01-03-2022 10:32-0400 Diastolic blood pressure 50 mm[Hg] Ayana Umana MD Work Phone: [facility] 01-03-2022 10:32-0400 Systolic blood pressure 80 mm[Hg] Ayana Umana MD Work Phone: [facility] 12-30-2021 21:30-0400 Body temperature 98.9 [degF] [facility] Work Phone: 12-30-2021 21:30-0400 Diastolic blood pressure 78 mm[Hg] [facility] Work Phone: 12-30-2021 21:30-0400 Heart rate 76 /min [facility] Work Phone: 12-30-2021 21:30-0400 Respiratory rate 14 /min [facility] Work Phone: 12-30-2021 21:30-0400 SaO2% (BldA) [Mass fraction] 100 % [facility] Work Phone: 12-30-2021 21:30-0400 Systolic blood pressure 121 mm[Hg] [facility] Work Phone: 12-30-2021 16:27-0400 Body height 162.56 cm [facility] Work Phone: 12-30-2021 16:27-0400 Body mass index (BMI) [Ratio] 20.2 kg/m2 [facility] Work Phone: 12-30-2021 16:27-0400 Body weight 53.52 kg [facility] Work Phone: 08-10-2020 22:30-0500 BP Diastolic 57 mm[Hg] Bernard H[facility]ctor [facility] 08-10-2020 22:30-0500 BP Systolic 95 mm[Hg] [facility] [place] 08-10-2020 22:30-0500 Pulse (Heart Rate) 78 /min [facility] [place] 08-10-2020 22:30-0500 Pulse Oximetry 99 % [facility] 08-10-2020 22:30-0500 Respiratory Rate 16 /min [facility] [place] 08-10-2020 20:40-0500 BMI (Body Mass Index) 21.28 kg/m2 [facility] 08-10-2020 20:40-0500 Body Temperature 98.01 [degF] [facility] 08-10-2020 20:40-0500 Body weight 55.79 kg [facility] 08-10-2020 20:40-0500 Height 161.9 cm [facility] Encounters Encounter Date Encounter Type Care Provider Facility Start: 03-28-2025 End: 03-28-2025 Telephone encounter cM Diamond MD Work Phone: OB/Gynecology Comment on above: Mucous Plug Start: 03-20-2025 End: 03-20-2025 Patient encounter procedure [employer] [facility] Comment on above: Supervision of high risk in third trimester (HCC) (Primary Dx); Encounter for supervision of high risk in third trimester, antepartum (HCC); macrosomia during in third trimester, single or unspecified fetus (HCC) Encounter for superv ision of high risk in third trimester, antepartum (HCC) (Primary Dx); 36 weeks gestation of (HCC); Anemia during in third trimester (HCC); Pain in left hip Start: 03-20-2025 End: 03-20-2025 ambulatory [facility] Facility:[facility] Start: 03-14-2025 End: 03-14-[address] [facility] Facility:[facility] Start: 03-14-2025 End: 03-14-2025 Patient encounter procedure Mc Diamond MD Work Phone: OB/Gynecology Comment on above: 35 weeks gestation o f ([facility]) (Primary Dx); Encounter for supervision of high risk in third trimester, antepartum ([facility]); Musculoskeletal pain Start: 03-13-2025 End: 03-14-2025 Telephone encounter Jasmin Archer MD Work Phone: OB/Gynecology Comment on above: OB rib pain, edema i n feet Start: 03-06-2025 End: 03-06-2025 Patient encounter procedure Swati Salguero [employer] COL[employer] EXAMINER.CNM Work Phone: OB/Gynecology Comment on above: Encounter for superv ision of high risk in third trimester, antepartum ([facility]) (Primary Dx); Anemia during in third trimester ([facility]); macrosomia during in third trimester, single or unspecified fetus (HCC); 34 weeks gestation of ([facility]) Start: 03-06-2025 End: 03-06-2025 ambulatory [facility] Facility:[facility] Start: 02-20-2025 End: 02-20-2025 ambulatory [facility] Facility:[facility] Start: 02-20-2025 End: 02-20-2025 Patient encounter procedure Shira Gloria [employer]OTH COLORS EXAMINER.BOOKING SUPERVISOR Work Phone: OB/Gynecology Comment on above: Encounter for superv ision of high risk in third trimester, antepartum (HCC) (Primary Dx); 32 weeks gestation of ([facility]); Anemia during in third trimester (HCC); macrosomia during in third trimester, single or unspecified fetus (HCC); Acne vulgaris Start: 02-16-2025 End: 02-16-2025 Patient encounter procedure [employer] [facility] Comment on above: Supervision of high risk in third trimester (HCC); 30 weeks gestation of (HCC); Anemia during in third trimester (HCC); Decreased movements in third trimester, single or unspecified fetus (HCC) Start: 02-16-2025 End: 02-16-2025 ambulatory Treatment Rm 17 [facility] Work Phone: Hematology/Oncology Comment on above: Maternal iron defici ency anemia complicating , third trimester (HCC) (Primary Dx) Start: 02-13-2025 End: 02-13-2025 ambulatory Treatment Rm 16 [facility] Work Phone: Hematology/Oncology Comment on above: Maternal iron defici ency anemia complicating , third trimester (HCC) (Primary Dx) Start: 02-08-2025 End: 02-08-2025 ambulatory Treatment Rm 18 [facility] Work Phone: Hematology/Oncology Comment on above: Maternal iron defici ency anemia complicating , third trimester (HCC) (Primary Dx) Start: 02-08-2025 End: 02-08-2025 ambulatory SHANNAN VILLARREAL Facility:[facility] Start: 02-08-2025 End: 02-08-2025 Patient encounter procedure Shira Gloria APRN.BOOKING SUPERVISOR Work Phone: OB/Gynecology Comment on above: Supervision of high risk in third trimester (HCC) (Primary Dx); 30 weeks gestation of (HCC); Anemia during in third trimester (HCC); Decreased movements in third trimester, single or unspecified fetus (HCC); Heartburn during in third trimester (HCC); Vaginal itching; Vaginal discharge Start: 02-06-2025 End: 02-06-2025 ambulatory Treatment Rm 14 [facility] Work Phone: Hematology/Oncology Comment on above: Maternal iron defici ency anemia complicating , third trimester (HCC) (Primary Dx) Start: 02-03-2025 End: 02-03-2025 Telephone encounter Sarwat Snow RNhome fire alarm installer [facility] Comment on above: Hematology Start: 01-31-2025 End: 01-31-2025 ambulatory Sarwat Snow [employer] fire alarm installer [facility] Comment on above: Blood Management Start: 01-31-2025 End: 01-31-2025 Telephone encounter Jasmin Archer MD Work Phone: OB/Gynecology Comment on above: Abdominal Pain Maternal iron defici ency anemia complicating , third trimester (HCC) (Primary Dx) Start: 01-29-2025 End: 01-29-2025 ambulatory KOURTNEY RODRIGUEZ Facility:[facility] Start: 01-24-2025 End: 01-24-2025 ambulatory SHANNAN VILLARREAL Facility:[facility] Start: 01-20-2025 End: 01-20-2025 ambulatory SHANNAN VILLARREAL Facility:[facility] Start: 01-20-2025 End: 01-20-2025 Patient encounter procedure Mc Diamond MD Work Phone: OB/Gynecology Comment on above: Nipple discharge (Pr imary Dx); 28 weeks gestation of ([facility]); Encounter for supervision of normal first in third trimester ([facility]) Start: 01-17-2025 End: 01-18-2025 ambulatory Vera Hatch APRN.CNM Work Phone: OB/Gynecology Comment on above: Milk coming in? Start: 01-09-2025 End: 01-09-2025 ambulatory Vera Hatch APRN.CNM Work Phone: OB/Gynecology Comment on above: Cramping/Activity/Sw elling Start: 01-09-2025 End: 01-09-2025 Telephone encounter Jamsin Archer MD Work Phone: OB/Gynecology Comment on above: Patient Question Start: 12-28-2024 End: 12-28-2024 Patient encounter procedure Vera Hatch APRN.CNM Work Phone: OB/Gynecology Comment on above: Encounter for superv ision of normal first in first trimester (HCC) (Primary Dx); 24 weeks gestation of (HCC); Screening for diabetes mellitus; Anxiety; Heartburn during in second trimester (HCC) Start: 12-28-2024 End: 12-28-2024 ambulatory SHANNAN VILLARREAL Facility:[facility] Start: 12-06-2024 End: 12-06-2024 Telephone encounter Shannan Villarreal MD Work Phone: [facility] Comment on above: ED Follow-up ([facility]) Start: 12-05-2024 End: 12-05-2024 Emergency department patient visit Dr. Ezekiel Villarreal MD Work Phone: -Emergency Department Work Phone: Start: 12-05-2024 End: 12-05-2024 ambulatory SHANNAN VILLARREAL Facility:[facility] Start: 12-05-2024 End: 12-05-2024 Patient encounter procedure Maria Gibson MD Work Phone: OB/Gynecology Comment on above: Encounter for superv ision of normal first in second trimester (Primary Dx); Abdominal pain in , second trimester; Pelvic cramping; 21 weeks gestation of Start: 11-29-2024 End: 01-29-2025 Follow-up encounter Eduin Dominguez MD Work Phone: OB/Gynecology Start: 11-28-2024 End: 11-28-2024 ambulatory SHANNAN VILLARREAL Facility:[facility] Start: 11-28-2024 End: 11-28-2024 Patient encounter procedure Vera Hatch APRN.CNDmitri Work Phone: OB/Gynecology Comment on above: Encounter for superv ision of normal first in second trimester (Primary Dx); Anxiety; Heartburn during in second trimester; 20 weeks gestation of ; Pelvic cramping; Round ligament pain Encounter for anatomic survey (Primary Dx); Encounter for supervision of normal first in second trimester; 12 weeks gestation of Start: 11-21-2024 End: 11-21-2024 ambulatory Vera Hatch APRN.CNM Work Phone: OB/Gynecology Comment on above: Uterine pain Start: 11-01-2024 End: 11-01-2024 ambulatory SHANNAN VILLARREAL Facility:[facility] Start: 11-01-2024 End: 11-01-2024 Patient encounter procedure Vera Hatch APRN.CNM Work Phone: OB/Gynecology Comment on above: 16 weeks gestation o f (Primary Dx); Encounter for supervision of normal first in second trimester; Anxiety; Constipation, unspecified constipation type; Heartburn during in second trimester; Dizziness Start: 10-28-2024 End: 10-28-2024 ambulatory SHANNAN VILLARREAL Facility:[facility] Start: 10-28-2024 End: 10-28-2024 Patient encounter procedure Vera Hatch APRN.CNM Work Phone: OB/Gynecology Comment on above: Encounter for superv ision of normal first in second trimester (Primary Dx); 16 weeks gestation of ; Cramping affecting , antepartum; Anxiety Start: 10-11-2024 End: 10-11-2024 ambulatory Vera Hatch APRN.CNM Work Phone: OB/Gynecology Comment on above: 16 week scan Start: 10-07-2024 End: 10-07-2024 ambulatory SHANNAN VILLARREAL Facility:[facility] Start: 10-07-2024 End: 10-07-2024 Office outpatient visit 25 minutes Yanci Lewis APRN.CNP Work Phone: [facility] Comment on above: Urinary tract infect ion symptoms (Primary Dx) Start: 10-05-2024 End: 10-06-2024 ambulatory Vera Hatch APRN.CNM Work Phone: OB/Gynecology Comment on above: Leg Pain Start: 10-03-2024 End: 10-03-2024 ambulatory SHANNAN VILLARREAL Facility:[facility] Start: 10-03-2024 End: 10-03-2024 Patient encounter procedure Whi Tech 1 Grounds Cleaner [facility] Comment on above: Encounter for antena keara screening for malformation using ultrasound (Primary Dx); 12 weeks gestation of Encounter for superv ision of normal first in second trimester (Primary Dx); 12 weeks gestation of ; Anxiety; Nausea and vomiting, unspecified vomiting type; Constipation, unspecified constipation type Start: 10-03-2024 End: 10-03-2024 ambulatory SHANNAN VILLARREAL Facility:[facility] Start: 09-16-2024 End: 09-16-2024 ambulatory SHANNAN VILLARREAL Facility:[facility] Start: 09-16-2024 End: 09-16-2024 Patient encounter procedure Vera Hatch APRN.CNM Work Phone: OB/Gynecology Comment on above: Encounter for prenat al care in first trimester of first (Primary Dx); with uncertain dates in first trimester; Encounter for screening for malignant neoplasm of cervix; Screen for STD (sexually transmitted disease); Supervision of high risk in second trimester; Type 1 diabetes mellitus affecting , antepartum; 12 weeks gestation of ; Penicillin allergy; Family history of severe allergy; Encounter for supervision of normal first in first trimester; Irritable bowel syndrome with both constipation and diarrhea; Small intestinal bacterial overgrowth (SIBO); Lactose intolerance; Vaginal discharge Start: 08-26-2024 End: 08-26-2024 ambulatory [facility] Work Phone: OB/Gynecology Start: 08-26-2024 End: 08-26-2024 Patient encounter procedure Maria Gibson MD Work Phone: OB/Gynecology Comment on above: Abdominal pain in pr egnancy, first trimester (Primary Dx); Nausea and vomiting in ; Confirm cardiac activity, ultrasound; Visit for confirmation of test result with physical exam Start: 08-22-2024 End: 08-22-2024 Telephone encounter Vera Hatch APRN.CNM Work Phone: OB/Gynecology Comment on above: Appointment Start: 08-20-2024 End: 08-20-2024 ambulatory VERA HATCH Facility:[facility] Start: 08-18-2024 End: 08-18-2024 Telephone encounter Swati Gauthier APRN.CNP Work Phone: Obstetrics & Gynecology Comment on above: Patient Question Start: 08-18-2024 End: 08-18-2024 ambulatory VERA HATCH Facility:[facility] Start: 08-17-2024 End: 08-18-2024 Telephone encounter Lou Myrick RN Work Phone: CHILD CARE TEACHER [facility] Comment on above: Results Start: 08-16-2024 End: 08-16-2024 ambulatory SHANNAN VILLARREAL Facility:[facility] Start: 08-16-2024 End: 08-16-2024 Patient encounter procedure Vera Hatch APRN.CNM Work Phone: OB/Gynecology Comment on above: with uncer tain dates, antepartum (Primary Dx) Start: 08-15-2024 End: 08-15-2024 ambulatory SHIRA IZQUIERDO Facility:[facility] Start: 08-12-2024 End: 08-12-2024 ambulatory Swati Gauthier CLOTH COLORS EXAMINER.BOOKING SUPERVISOR Work Phone: CHILD CARE TEACHER [facility] Comment on above: of unknown anatomic location (Primary Dx) Start: 08-12-2024 End: 08-12-2024 Telemedicine consultation with patient Swati Gauthier ALIYA.BOOKING SUPERVISOR Work Phone: CHILD CARE TEACHER [facility] Start: 08-12-2024 End: 08-12-2024 ambulatory SHIRA IZQUIERDO Facility:[facility] Start: 08-11-2024 End: 08-11-2024 ambulatory Fernando Chong RN NURSE ELECTRIC POWER LINE REPAIRER Comment on above: Abdominal Pain Start: 08-10-2024 End: 08-10-2024 Telephone encounter Shira Izquierdo APRN.BOOKING SUPERVISOR Work Phone: [facility] Comment on above: [facility] Start: 08-10-2024 End: 08-10-2024 Emergency department patient visit SHANNAN VILLARREAL Facility:[facility] Start: 07-31-2024 End: 07-31-2024 Orders Only Yanci Lewis APRN.BOOKING SUPERVISOR Work Phone: [facility] Start: 07-30-2024 End: 07-30-2024 ambulatory SHANNAN VILLARREAL Facility:[facility] Start: 07-30-2024 End: 07-30-2024 Office outpatient visit 15 minutes Du Toledo APRN.CNP Work Phone: [facility] Comment on above: Abdominal pain, unsp ecified abdominal location (Primary Dx); Recurrent UTI (urinary tract infection) Start: 07-29-2024 End: 07-29-2024 Telephone encounter Du Toledo APRN.CNP Work Phone: [facility] Start: 07-27-2024 End: 07-27-2024 ambulatory SHANNAN VILLARREAL Facility:[facility] Start: 07-27-2024 End: 07-27-2024 Office outpatient visit 25 minutes Yanci Lewis APRN.CNP Work Phone: [facility] Comment on above: Dysuria (Primary Dx) ; Nausea Start: 07-04-2024 End: 07-04-2024 ambulatory SHANNAN VILLARREAL Facility:[facility] Start: 07-04-2024 End: 07-04-2024 Patient encounter procedure Alisha Baker PA-C Work Phone: [facility] Comment on above: Noninfected skin tea r of leg, right, initial encounter (Primary Dx) Start: 06-07-2024 End: 06-07-2024 ambulatory SHANNAN VILLARREAL Facility:[facility] Start: 06-07-2024 End: 06-07-2024 Nursing evaluation of patient and report Nurse Jose Malik Mc Work Phone: [facility] Comment on above: Encounter for immuni zation (Primary Dx) Start: 05-10-2024 End: 05-10-2024 Telephone encounter Shannan Villarreal MD Work Phone: [facility] Comment on above: Orders Start: 03-24-2024 ambulatory Claus Brandon BOOKING SUPERVISOR Work Phone: Gastroenterolgy Comment on above: Xifoxan Start: 03-14-2024 End: 03-14-2024 ambulatory Autonomic Main Work Phone: Neurology Comment on above: Procedure Start: 03-14-2024 End: 03-14-2024 Patient encounter procedure Autonomic 1 Neur Main Work Phone: Neurology Start: 02-24-2024 End: 02-24-2024 Emergency department patient visit SHANNAN VILLARREAL Facility:[facility] Start: 02-23-2024 Telephone encounter Clausdenzel dillard CLOTH COLORS EXAMINER.BOOKING SUPERVISOR Work Phone: Gastroenterolgy Comment on above: Medication Authoriza tion (Xifaxan 550mg) Start: 02-21-2024 Orders Only Clausdenzel Mcdanielg CLOTH COLORS EXAMINER.BOOKING SUPERVISOR Work Phone: Gastroenterolgy Comment on above: Irritable bowel synd archana with diarrhea (Primary Dx); Small intestinal bacterial overgrowth Start: 02-17-2024 End: 02-17-2024 ambulatory Doc Escalera MD Work Phone: Gastroenterology Comment on above: Gas Start: 02-17-2024 End: 02-17-2024 Patient encounter procedure Doc Escalera MD Work Phone: Gastroenterology Start: 02-16-2024 End: 02-16-2024 Nursing evaluation of patient and report Nurse Nicho Wilhelm [facility] Work Phone: [facility] Gastroenterology [facility] Comment on above: Abdominal bloating; Left sided abdominal pain Start: 01-27-2024 ambulatory CLAUSDENZEL TAYLOR Facility:[facility] Start: 01-27-2024 End: 01-27-2024 Subsequent hospital visit by physician [facility] (I-Stat/1.5t) [facility] Comment on above: Abdominal bloating [ R14.0] Start: 01-25-2024 End: 01-25-2024 ambulatory Skin Biopsy Work Phone: Neurology Comment on above: Arrived Start: 01-25-2024 End: 01-25-2024 Patient encounter procedure Skin Biopsy Work Phone: Neurology Start: 01-22-2024 End: 01-22-2024 Patient encounter procedure Mckayla Patel OD Work Phone: [facility] Comment on above: Blurring of vision ( Primary Dx); Chronic migraine w/o aura w/o status migrainosus, not intractable; Regular astigmatism of both eyes Start: 01-16-2024 ambulatory Nnamdi Orosco MD Work Phone: Allergy Comment on above: Gabapentin/Melisa Start: 01-16-2024 End: 01-16-2024 Patient encounter procedure Vera Walker CLOTH COLORS EXAMINER.BOOKING SUPERVISOR Work Phone: [facility] Comment on above: Acute otitis media, left (Primary Dx); Pharyngitis, unspecified etiology Start: 01-15-2024 ambulatory Celia Soto Work Phone: Neurology Comment on above: Ear Pain and Skin se nsitivity Start: 01-15-2024 End: 01-15-2024 Patient encounter procedure Celia Boogie PA-C Work Phone: Neurology Comment on above: Orthostatic lighthea dedness (Primary Dx); Blurring of vision; Disturbance of skin sensation; Chronic migraine w/o aura w/o status migrainosus, not intractable; Positional headache Start: 01-15-2024 End: 01-15-2024 Patient encounter procedure nNamdi Orosco MD Work Phone: Allergy Comment on above: Mast cell activation syndrome (HCC) (Primary Dx); Abdominal bloating; Left sided abdominal pain; Diarrhea, unspecified type; Dermatitis, unspecified; Chronic rhinitis Start: 01-07-2024 End: 01-07-2024 Office outpatient visit 15 minutes Du Toledo CLOTH COLORS EXAMINER.BOOKING SUPERVISOR Work Phone: [facility] Comment on above: Viral URI with cough (Primary Dx) Start: 12-24-2023 End: 12-24-2023 Office outpatient visit 15 minutes Claus Taylor CLOTH COLORS EXAMINER.BOOKING SUPERVISOR Work Phone: Gastroenterolgy Comment on above: Abdominal bloating ( Primary Dx); Elevated fecal calprotectin; Generalized abdominal pain; Nausea Start: 12-16-2023 ambulatory SHANNAN Siddiqui ty:[facility] Start: 12-16-2023 End: 12-16-2023 Subsequent hospital visit by physician [facility] Work Phone: Radiology Comment on above: Female dyspareunia [ N94.10] Start: 12-16-2023 End: 12-16-2023 Patient encounter procedure Maria Gibson MD Work Phone: OB/Gynecology Comment on above: Pelvic pressure in f emale (Primary Dx); Vaginal discharge; Female dyspareunia Start: 12-12-2023 End: 12-12-2023 Office outpatient visit 25 minutes Yanci Lewis CLOTH COLORS EXAMINER.BOOKING SUPERVISOR Work Phone: [facility] Comment on above: Fatigue, unspecified type (Primary Dx) Start: 08-14-2023 End: 08-14-2023 Patient encounter procedure Petra Trejo APRN.BOOKING SUPERVISOR Work Phone: OB/Gynecology Comment on above: Encounter for gyneco logical examination (general) (routine) without abnormal findings (Primary Dx); Pelvic pain in female Start: 08-14-2023 End: 08-14-2023 Patient encounter status Petra Trejo APRN.BOOKING SUPERVISOR Work Phone: [facility] Work Phone: Start: 07-07-2023 End: 07-07-2023 Office outpatient new 30 minutes Chrystal Allen CLOTH COLORS EXAMINER.BOOKING SUPERVISOR Work Phone: [facility] Comment on above: Colitis (Primary Dx) ; Adjustment disorder with mixed anxiety and depressed mood; Hypokalemia Start: 04-29-2023 End: 04-29-2023 Patient encounter procedure Du Toledo CLOTH COLORS EXAMINER.BOOKING SUPERVISOR Work Phone: [facility] Comment on above: Sore throat (Primary Dx) Start: 10-16-2022 End: 10-16-2022 Patient encounter procedure Cayla Diamond CLOTH COLORS EXAMINER.BOOKING SUPERVISOR Work Phone: [facility] Comment on above: Left lower quadrant abdominal pain (Primary Dx) Start: 06-12-2022 ambulatory Prema Mulligan MD Work Phone: Endocrinology Comment on above: Nausea Medication Start: 05-27-2022 End: 05-27-2022 Emergency department patient visit [facility] Start: 05-15-2022 ambulatory Prema Mulligan MD Work Phone: Endocrinology Comment on above: Oral Contraceptive Start: 05-02-2022 ambulatory Prema Mulligan MD Work Phone: Endocrinology Comment on above: Question regarding A CTH BLD Start: 05-01-2022 End: 05-01-2022 Patient encounter procedure Prema Mulligan MD Work Phone: Endocrinology Comment on above: Elevated testosteron e level in female (Primary Dx); Irregular menstrual cycle; Hypotension, unspecified hypotension type; Salt craving Start: 02-19-2022 End: 02-19-2022 Patient encounter procedure Ayana Umana MD Work Phone: OB/Gynecology Comment on above: Other acne (Primary Dx); Vaginal discharge; Irregular periods; Chronic pelvic pain in female; Abnormal laboratory test result; Malaise and fatigue; Muscle weakness; Loss of appetite Start: 01-31-2022 End: 01-31-2022 Patient encounter procedure Maria Gibson MD Work Phone: OB/Gynecology Comment on above: Pelvic pain in femal e (Primary Dx) Start: 01-03-2022 End: 01-03-2022 Patient encounter procedure Ayana Umana MD Work Phone: OB/Gynecology Comment on above: Vaginal discharge (P rimary Dx); Vaginal odor; Vaginal itching; Pelvic pain in female; Irregular menstrual cycle; Other acne Start: 12-30-2021 End: 12-30-2021 Emergency department patient visit [facility] Start: 08-10-2020 End: 08-10-2020 Emergency department patient visit Bernard Anaya Work Phone: [facility] Comment on above: Chest pain, unspecif ied type (Primary Dx); Medication side effect, initial encounter Procedures Date Procedure Procedure Detail Performing Clinician Start: 03-20-2025 BACTERIAL VAGINOSIS NAAT Eduin Dominguez MD Work Phone: Start: 03-20-2025 Iadna trichomonas va ginalis amplified probe tech Eduin Dominguez MD Work Phone: Start: 03-20-2025 Us preg uterus after 1st trimest 09/07 gestation Shira Gloria CLOTH COLORS EXAMINER.BOOKING SUPERVISOR Work Phone: Start: 02-16-2025 Us preg uterus after 1st trimest 09/07 gestation Shira Gloria CLOTH COLORS EXAMINER.BOOKING SUPERVISOR Work Phone: Start: 12-05-2024 Complete ultrasound of kidneys and bladder Dr. Ezekiel Villarreal MD Work Phone: Start: 12-05-2024 Urnls dip stick/tabl et rgnt auto w/o microscopy Maria Gibson MD Work Phone: Start: 11-28-2024 Urnls dip stick/tabl et rgnt auto w/o microscopy Vera Hatch APRN.CNM Work Phone: Start: 11-28-2024 Us preg uterus after 1st trimest 09/07 gestation Vera Hatch APRN.CNM Work Phone: Start: 10-28-2024 Urnls dip stick/tabl et rgnt auto w/o microscopy Vera Hatch APRN.CNM Work Phone: Start: 10-07-2024 Urnls dip stick/tabl et rgnt auto w/o microscopy [facility] Provider Start: 10-03-2024 Antibody screen SHANNAN VILLARREAL Comment on above: Order Comment: Speci men Type: BLOOD SPECIMENOrdering Facility: [facility] Address: [address] [place] [address] Performed By: #### T SPN ####CC MAIN BLOOD BANKCLIA [id number] [place] [address] [place] Start: 10-03-2024 Us nuchal translucency 1st gestation Vera Hatch APRN.CNM Work Phone: Start: 09-16-2024 BACTERIAL VAGINOSIS NAAT Vera Hatch APRN.CNM Work Phone: Start: 09-16-2024 Cytp c/v auto thin l yr prepj scr mnl rescr phys Vera Hatch APRN.CNM Work Phone: Start: 09-16-2024 End: 09-16-2024 Iadna chlamydia trachomatis amplified probe tq Vera Holden PISANO.CNM Work Phone: Start: 08-26-2024 Us pelvic nonobstetr ic real-time image complete Vera Holden PISANO.CNM Work Phone: Start: 08-10-2024 Antibody screen VERA HOLDEN Comment on above: Order Comment: Speci men Type: BLOOD SPECIMENOrdering Facility: [facility] Address: [address] [place] [address] Performed By: #### T SPN ####[facility] [id number] [place] [address] [place] Start: 07-30-2024 Urnls dip stick/tabl et rgnt auto w/o microscopy [facility] Provider Start: 07-27-2024 UA DIP,URINE HCG (POC) [facility] Provider Start: 07-27-2024 Urnls dip stick/tabl et rgnt auto w/o microscopy [facility] Provider Start: 02-17-2024 Breath hydrogen/meth ane test Claus Taylor CLOTH COLORS EXAMINER.BOOKING SUPERVISOR Work Phone: Start: 01-16-2024 STREP A MOLECULAR (POC) [facility] Provider Start: 01-07-2024 STREP A MOLECULAR (POC) [facility] Provider Start: 12-16-2023 BACTERIAL VAGINOSIS NAAT Maria Gibson MD Work Phone: Start: 12-16-2023 Iadna trichomonas va ginalis amplified probe tech Maria Gibson MD Work Phone: Start: 12-16-2023 Urnls dip stick/tabl et rgnt auto w/o microscopy Maria Gibson MD Work Phone: Start: 04-29-2023 STREP A MOLECULAR (POC) [facility] Provider Start: 05-27-2022 Computed tomography of abdomen and pelvis with contrast Start: 12-30-2021 Computed tomography of abdomen and pelvis with contrast Start: 08-10-2020 Ecg routine ecg w/le ast 12 lds w/i&r Bernard Anaya Work Phone: Laboratory test resu lt abnormal Abnormal laboratory test result Ayana Umana MD Work Phone: Plan of Treatment Date Care Activity Detail Author Start: 2078 RSV Vaccine (1 - 1-dose 75+ series) RSV Vaccine (1 - 1-dose 75+ series) [facility] Start: 01-24-2035 Urine microalbumin profile DTaP,Tdap,Td Vaccine (6 - Td or Tdap) [facility] Start: 06-07-2034 Urine microalbumin profile DTaP,Tdap,Td Vaccine (5 - Td or Tdap) [facility] Start: 09-16-2027 Screening for malignant neoplasm of cervix Cervical Cancer Screening [facility] Start: 09-16-2025 GC (Gonorrhea) Screening (18-24) GC (Gonorrhea) Screening (18-24) [facility] Start: 09-16-2025 Screening for Chlamydia trachomatis Chlamydia Screening (18-) [facility] Start: 05-08-2025 Influenza vaccination [facility] Start: 04-03-2025 End: 04-03-2025 Patient encounter procedure 04/03/2025 9:45 AM EDT Routine Office Visit OB/Gynecology [address] [place] [address] Swati Salguero APRN.[facility] [address] [place] [address] OB OB/Gynecology Comment on above: OB Start: 03-30-2025 End: 03-30-2025 Patient encounter procedure 03/30/2025 9:20 AM EDT Routine Office Visit OB/Gynecology [address] [place] [address] Jasmin Archer MD [address] [place] [address] OB OB/Gynecology Comment on above: OB Start: 03-20-2025 End: 03-20-2025 Patient encounter procedure Maternal Medicine Comment on above: Growth Growth/OB Start: 03-06-2025 End: 03-06-2025 Patient encounter procedure 03/06/2025 8:00 AM EDT Routine Office Visit OB/Gynecology [address] [place] [address] Swati Salguero APRN.CNM [address] [place] [address] OB OB/Gynecology Comment on above: OB Start: 02-20-2025 End: 05-22-2025 CBC panel - Blood by Automated count COMPLETE BLOOD COUNT Lab Routine Anemia during in third trimester (HCC) Expected: 02/20/2025, Expires: 05/22/2025 [facility] Work Phone: Comment on above: Expected: 02/20/2025, Expires: Start: 02-20-2025 End: 02-20-2026 OBSTETRIC ULTRASOUND WHI OBSTETRIC ULTRASOUND WHI Anc Imaging Routine Encounter for supervision of high risk in third trimester, antepartum (HCC) macrosomia during in third trimester, single or unspecified fetus (HCC) Expected: 02/20/2025, Expires: 02/20/2026 [facility] Comment on above: Expected: 02/20/2025, Expires: Start: 02-20-2025 End: 02-20-2025 Patient encounter procedure 02/20/2025 9:00 AM EDT Routine Office Visit OB/Gynecology [address] [place] [address] Shira Gloria APRN.BOOKING SUPERVISOR [address] [place] [address] Ob OB/Gynecology Comment on above: Ob Start: 02-16-2025 End: 02-16-2025 Patient encounter procedure 02/16/2025 11:00 AM EDT Routine Office Visit Maternal Medicine [address] [address] Growth Maternal Medicine Comment on above: Growth Start: 02-16-2025 End: 02-16-2025 ambulatory 02/16/2025 10:00 AM EDT Infusion Center Hematology/Oncology [address] [place] [address] 2ND Hematology/Oncology Comment on above: 2ND Start: 02-13-2025 End: 02-13-2025 ambulatory 02/13/2025 9:30 AM EDT Infusion Center Hematology/Oncology [address] [place] [address] 2ND Hematology/Oncology Comment on above: 2ND Start: 02-08-2025 End: 02-08-2026 OBSTETRIC ULTRASOUND WHI OBSTETRIC ULTRASOUND I Anc Imaging Routine Supervision of high risk in third trimester (HCC) 30 weeks gestation of (HCC) Anemia during in third trimester (HCC) Decreased movements in third trimester, single or unspecified fetus (HCC) Expected: 02/08/2025, Expires: 02/08/2026 [facility] Comment on above: Expected: 02/08/2025, Expires: Start: 02-08-2025 End: 02-08-2025 ambulatory 02/08/2025 10:30 AM EDT Infusion Center Hematology/Oncology [address] [place] [address] 2ND Hematology/Oncology Comment on above: 2ND Start: 02-08-2025 End: 02-08-2025 Patient encounter procedure 02/08/2025 9:00 AM EDT Routine Office Visit OB/Gynecology [address] [place] [address] Shira Gloria, CLOTH COLORS EXAMINER.BOOKING SUPERVISOR [address] [place] [address] OB OB/Gynecology Comment on above: OB Start: 02-06-2025 End: 02-06-2025 Infusion Center 02/06/2025 9:30 AM EDT Infusion Center Hematology/Oncology [address] [place] [address] 2ND START VENOFER/-/ORDERING PROV TORCHIA* Hematology/Oncology Comment on above: 2ND START VENOFER/-4/ORDERING PROV [facility]* Start: 01-24-2025 End: 01-24-2025 Patient encounter procedure 01/24/2025 9:00 AM EDT Routine Office Visit OB/Gynecology [address] [place] [address] Vera Hatch APRN.CNM [address] [place] [address] OB OB/Gynecology Comment on above: OB Start: 01-24-2025 End: 01-24-2025 ambulatory 01/24/2025 8:45 AM EDT Results Only [place] [facility] [address] [place] [address] Glucose Test [facility] Comment on above: Glucose Test Start: 01-23-2025 End: 01-23-2025 Patient encounter procedure [facility] Comment on above: Return in about 1 year (around 01/21/2025 ) for complete exam . complete exam . Start: 12-28-2024 End: 03-29-2025 ANEMIA REFLEX PANEL ANEMIA REFLEX PANEL Lab Routine Encounter for supervision of normal first in first trimester (HCC) 24 weeks gestation of (HCC) Expected: 12/28/2024, Expires: 03/29/2025 [facility] Comment on above: Expected: 12/28/2024, Expires: Start: 12-28-2024 End: 12-28-2025 GESTATIONAL GLUCOSE SCREEN, 1-HOUR, 50 GRAM, NON-FASTING GESTATIONAL GLUCOSE SCREEN, 1-HOUR, 50 GRAM, NON-FASTING Lab Routine Encounter for supervision of normal first in first trimester (HCC) 24 weeks gestation of (HCC) Screening for diabetes mellitus Expected: 12/28/2024, Expires: 12/28/2025 [facility] Work Phone: Comment on above: Expected: 12/28/2024, Expires: Start: 12-28-2024 End: 12-28-2025 SYPHILIS TREPONEMAL W/REFLEX SYPHILIS TREPONEMAL W/REFLEX Lab Routine Encounter for supervision of normal first in first trimester (HCC) 24 weeks gestation of (HCC) Expected: 12/28/2024, Expires: 12/28/2025 [facility] Comment on above: Expected: 12/28/2024, Expires: Start: 12-28-2024 End: 12-28-2024 Patient encounter procedure 12/28/2024 9:45 AM EDT Routine Office Visit OB/Gynecology [address] [place] [address] Vera Hatch APRN.CNM [address] [place] [address] OB OB/Gynecology Comment on above: OB Start: 12-05-2024 [facility] Start: 11-28-2024 End: 11-28-2024 Patient encounter procedure Maternal Medicine Comment on above: ANatomy OB Start: 11-01-2024 End: 11-01-2024 Patient encounter procedure 11/01/2024 8:00 AM EST Routine Office Visit OB/Gynecology [address] [place] [address] Vera Hatch APRN.CNM [address] [place] [address] OBB OB/Gynecology Comment on above: OBB Start: 10-03-2024 End: 01-02-2025 Chromosome 21 trisomy [Presence] in Blood or Tissue by Cytogenetics [facility] Work Phone: Comment on above: Expected: 10/03/2024, Expires: Start: 10-03-2024 End: 10-03-2025 OBSTETRIC ULTRASOUND WHI OBSTETRIC ULTRASOUND WHI Anc Imaging Routine Encounter for supervision of normal first in second trimester 12 weeks gestation of Expected: 10/03/2024, Expires: 10/03/2025 [facility] Comment on above: Expected: 10/03/2024, Expires: Start: 10-03-2024 End: 10-03-2024 Patient encounter procedure Maternal Medicine Comment on above: nuchal Start: 09-16-2024 End: 12-16-2024 ANEMIA REFLEX PANEL ANEMIA REFLEX PANEL Lab Routine Encounter for care in first trimester of first Expected: 09/16/2024, Expires: 12/16/2024 [facility] Work Phone: Comment on above: Expected: 09/16/2024, Expires: Start: 09-16-2024 End: 12-16-2024 Hemoglobin A1c in Blood HEMOGLOBIN A1C Lab Routine Encounter for care in first trimester of first Expected: 09/16/2024, Expires: 12/16/2024 [facility] Comment on above: Expected: 09/16/2024, Expires: Start: 09-16-2024 End: 12-16-2024 HEMOGLOBIN EVALUATION CASCADE HEMOGLOBIN EVALUATION CASCADE Lab Routine Supervision of high risk in second trimester Expected: 09/16/2024, Expires: 12/16/2024 [facility] Comment on above: Expected: 09/16/2024, Expires: Start: 09-16-2024 End: 12-16-2024 Hepatitis B virus surface Ag [Presence] in Serum HEPATITIS B SURFACE ANTIGEN Lab Routine Encounter for care in first trimester of first Expected: 09/16/2024, Expires: 12/16/2024 [facility] Comment on above: Expected: 09/16/2024, Expires: Start: 09-16-2024 End: 12-16-2024 Hepatitis C virus Ab [Presence] in Serum HEPATITIS C ANTIBODY IA WITH CONFIRMATION Lab Routine Encounter for care in first trimester of first Expected: 09/16/2024, Expires: 12/16/2024 [facility] Comment on above: Expected: 09/16/2024, Expires: Start: 09-16-2024 End: 12-16-2024 HIV 1+2 Ab [Presence] in Serum or Plasma by Immunoassay HIV 1/2 COMBO WITH REFLEX TO DIFFERENTIATION Lab Routine Encounter for care in first trimester of first Expected: 09/16/2024, Expires: 12/16/2024 [facility] Comment on above: Expected: 09/16/2024, Expires: Start: 09-16-2024 End: 09-16-2025 NUCHAL TRANSLUCENCY WHI NUCHAL TRANSLUCENCY WHI Anc Imaging Routine Encounter for care in first trimester of first with uncertain dates in first trimester Encounter for screening for malignant neoplasm of cervix Screen for STD (sexually transmitted disease) Supervision of high risk in second trimester Type 1 diabetes mellitus affecting , antepartum 12 weeks gestation of Penicillin allergy Family history of severe allergy Encounter for supervision of normal first in first trimester Irritable bowel syndrome with both constipation and diarrhea Small intestinal bacterial overgrowth (SIBO) Lactose intolerance Expected: 09/16/2024, Expires: 09/16/2025 [facility] Comment on above: Expected: 09/16/2024, Expires: Start: 09-16-2024 End: 12-16-2024 RUBELLA IGG ANTIBODY RUBELLA IGG ANTIBODY Lab Routine Encounter for care in first trimester of first Expected: 09/16/2024, Expires: 12/16/2024 [facility] Comment on above: Expected: 09/16/2024, Expires: Start: 09-16-2024 End: 12-16-2024 SYPHILIS TREPONEMAL W/REFLEX SYPHILIS TREPONEMAL W/REFLEX Lab Routine Encounter for care in first trimester of first Expected: 09/16/2024, Expires: 12/16/2024 [facility] Comment on above: Expected: 09/16/2024, Expires: Start: 09-16-2024 End: 12-16-2024 TYPE + SCREEN TYPE + SCREEN Blood Bank Routine Encounter for care in first trimester of first Expected: 09/16/2024, Expires: 12/16/2024 [facility] Comment on above: Expected: 09/16/2024, Expires: Start: 09-13-2024 End: 09-13-2024 Patient encounter procedure 09/13/2024 3:15 PM EST Routine Office Visit OB/Gynecology [address] [place] [address] Vera Hatch APRN.CN [address] [place] [address] 1st OB OB/Gynecology Comment on above: 1st OB Start: 09-06-2024 End: 09-06-2024 Patient encounter procedure 09/06/2024 11:20 AM EST Routine Office Visit OB/Gynecology [address] [place] [address] Jasmin Archer MD [address] [place] [address] OB Routine ok per OB/Gynecology Comment on above: OB Routine ok per Start: 09-06-2024 End: 09-06-2024 ambulatory 09/06/2024 10:30 AM EST Procedure OB/Gynecology [address] [place] [address] Remote, Grounds [employer] [address] [place] [address] with uncertain dates, antepartum [Z34.90] OB/Gynecology Comment on above: with uncertain dates, antepart um [Z34.90] Start: 08-30-2024 End: 08-30-2024 Patient encounter procedure 08/30/2024 9:30 AM EST Routine Office Visit OB/Gynecology [address] [place] [address] Vera Hatch APRN.CN [address] [place] [address] OB Routine ok per OB/Gynecology Comment on above: OB Routine ok per Start: 08-30-2024 End: 08-30-2024 ambulatory 08/30/2024 9:00 AM EST Procedure OB/Gynecology [address] [place] [address] Remote, Grounds [employer] [address] [place] [address] with uncertain dates, antepartum [Z34.90] OB/Gynecology Comment on above: with uncertain dates, antepart um [Z34.90] Start: 08-26-2024 End: 08-26-2024 Patient encounter procedure 08/26/2024 9:40 AM EST Office Visit OB/Gynecology [address] [place] [address] Maria Epps MD [address] [place] [address] early ob u/s f/u-NEEDS TO SCHEDULE NEW OB ONCE VIABILITY IS CONFIRMED OB/Gynecology Comment on above: early ob u/s f/u-NEEDS TO SCHEDULE NEW O B ONCE VIABILITY IS CONFIRMED Start: 08-26-2024 End: 08-26-2024 ambulatory 08/26/2024 8:00 AM EST Procedure OB/Gynecology [address] [place] [address] Remote, Gr[employer] [address] [place] [address] viability / seeing DM after OB/Gynecology Comment on above: viability / seeing DM after Start: 08-16-2024 End: 08-16-2025 US Pelvis PELVIC US WHI Anc Imaging Routine with uncertain dates, antepartum Expected: 08/16/2024, Expires: 08/16/2025 [facility] Work Phone: Comment on above: Expected: 08/16/2024, Expires: Start: 08-16-2024 End: 08-16-2024 Patient encounter procedure 08/16/2024 1:00 PM EST Initial Office Visit OB/Gynecology [address] [place] [address] Vera Hatch APRN.CNM [address] [place] [address] 1st OB OB/Gynecology Comment on above: 1st OB Start: 08-12-2024 End: 08-12-2024 ambulatory 08/12/2024 4:15 PM EST [facility] CHILD CARE TEACHER [facility] [id number] [place] [address] Swati Gauthier APRN.BOOKING SUPERVISOR [address] [place] [address] PEAC- PUL CHILD CARE TEACHER [facility] Comment on above: PEAC- PUL Start: 08-02-2024 End: 08-02-2024 Patient encounter procedure 08/02/2024 4:40 PM EST Office Visit OB/Gynecology [address] [place], [place] [id number] Cornelio Willis MD [address] [place], [place] [id number] annual OB/Gynecology Comment on above: annual Start: 06-10-2024 End: 06-10-2024 Nursing evaluation of patient and report 06/10/2024 1:00 PM EDT Nurse Visit Family Practice [address] [place] [address] [address] [place], [place] [id number] , Nurse Jose Malik [address] [place] [address] [address] [place], [place] [id number] tetanus shot Family Practice Comment on above: tetanus shot Start: 05-08-2024 Covid-19 Vaccine ( season) Covid-19 Vaccine ( season) [facility] Start: 05-08-2024 Covid-19 Vaccine ( season) Covid-19 Vaccine ( season) [facility] Start: 05-08-2024 Influenza vaccination [facility] Start: 04-11-2024 End: 04-11-2024 Nursing evaluation of patient and report 04/11/2024 2:00 PM EDT Nurse Visit Family Practice [address] [place] [address] [address] [place], [place] 178331 Mc, Nurse Jose aMlik [address] [place] [address] [address] [place], [place] [id number] tetanus shot Family Practice Comment on above: tetanus shot Start: 04-10-2024 Urine microalbumin profile DTaP,Tdap,Td Vaccine (4 - Td or Tdap) [facility] Start: 2024 Screening for malignant neoplasm of cervix Cervical Cancer Screening [facility] Start: 03-14-2024 End: 03-14-2024 ambulatory Neurology Comment on above: r QSART r ANS TILT Start: 02-16-2024 End: 02-16-2024 Nursing evaluation of patient and report 02/16/2024 9:30 AM EDT Nurse Visit [address] [place] [address] [facility], Nurse [facility] [address] [place], [place] [id number] Abdominal bloating [R14.0] [facility] Comment on above: Abdominal bloating [R14.0] Start: 02-02-2024 End: 02-02-2024 ambulatory Neurology Comment on above: Orthostatic lightheadedness [R42] QSART ANS TILT Start: 01-27-2024 End: 01-27-2024 Patient encounter procedure [facility] Comment on above: Abdominal bloating [R14.0] Start: 01-25-2024 End: 01-25-2024 ambulatory 01/25/2024 12:45 PM EDT Procedure Neurology [address] [place] [address] Orthostatic lightheadedness [R42] Neurology Comment on above: Orthostatic lightheadedness [R42] Start: 01-25-2024 End: 01-25-2024 Nursing evaluation of patient and report 01/25/2024 10:00 AM EDT Nurse Visit [address] [place] [address] [facility], Nurse [facility] [address] [place] [address] Abdominal bloating [R14.0] [facility] Comment on above: Abdominal bloating [R14.0] Start: 01-22-2024 End: 05-17-2024 Patient encounter procedure 01/22/2024 8:00 AM EDT Office Visit OPHT [facility] [address] [place] [address] Mckayla Patel, OD [address] [facility] [address] [place] [address] Orthostatic lightheadedness [R42] [facility] Comment on above: Orthostatic lightheadedness [R42] Start: 01-15-2024 End: 04-15-2024 ALGN RESP DISEASE PROF REG 5 [facility] Work Phone: Comment on above: Expected: 01/15/2024, Expires: Start: 01-15-2024 End: 04-15-2024 TRYPTASE BLOOD [facility] Comment on above: Expected: 01/15/2024, Expires: 4 Start: 07-13-2023 End: 10-12-2023 POTASSIUM BLD POTASSIUM BLD Lab Routine Hypokalemia Expected: 07/13/2023, Expires: 10/12/2023 [facility] Work Phone: Comment on above: Expected: 07/13/2023, Expires: 4 Start: 05-08-2023 Covid-19 Vaccine ( season) Covid-19 Vaccine ( season) [facility] Start: 05-08-2023 Influenza vaccination [facility] Start: 09-07-2022 DEPRESSION ASSESSMENT DEPRESSION ASSESSMENT [facility] Start: 05-08-2022 Influenza vaccination [facility] Start: 05-01-2022 End: 07-01-2022 Corticotropin [Mass/volume] in Plasma ACTH BLD Lab Routine Salt craving Expected: 05/01/2022, Expires: 07/01/2022 [facility] Work Phone: Comment on above: Expected: 05/01/2022, Expires: 2 Start: 05-01-2022 End: 07-01-2022 Cortisol [Mass/volume] in Serum or Plasma CORTISOL BLD Lab Routine Salt craving Expected: 05/01/2022, Expires: 07/01/2022 [facility] Work Phone: Comment on above: Expected: 05/01/2022, Expires: 2 Start: 05-01-2022 End: 07-01-2022 DHEA-S BLD DHEA-S BLD Lab Routine Salt craving Expected: 05/01/2022, Expires: 07/01/2022 [facility] Work Phone: Comment on above: Expected: 05/01/2022, Expires: 2 Start: 2022 Hepatitis B Vaccine (1 of 3 - 19+ 3-dose series) Hepatitis B Vaccine (1 of 3 - 19+ 3-dose series) [facility] Start: 2022 Urine microalbumin profile DTAP,TDAP,TD (1 - Tdap) [facility] Start: 02-19-2022 End: 04-21-2022 DHEA-S BLD DHEA-S BLD Lab Routine Other acne Irregular periods Expected: 02/19/2022, Expires: 04/21/2022 [facility] Work Phone: Comment on above: Expected: 02/19/2022, Expires: 2 Start: 02-19-2022 End: 04-21-2022 Testosterone [Mass/volume] in Serum or Plasma TESTOSTERONE TOTAL Lab Routine Other acne Irregular periods Expected: 02/19/2022, Expires: 04/21/2022 [facility] Work Phone: Comment on above: Expected: 02/19/2022, Expires: 2 Start: 01-03-2022 End: 03-05-2022 17-Hydroxyprogesterone [Mass/volume] in Serum or Plasma HYDROXYPROGESTERO-17 Lab Routine Irregular menstrual cycle Other acne Expected: 01/03/2022, Expires: 03/05/2022 [facility] Work Phone: Comment on above: Expected: 01/03/2022, Expires: 2 Start: 01-03-2022 End: 03-05-2022 DHEA-S BLD DHEA-S BLD Lab Routine Irregular menstrual cycle Other acne Expected: 01/03/2022, Expires: 03/05/2022 [facility] Work Phone: Comment on above: Expected: 01/03/2022, Expires: 2 Start: 01-03-2022 End: 03-05-2022 Estradiol (E2) [Mass/volume] in Serum or Plasma ESTRADIOL-17B BLD Lab Routine Irregular menstrual cycle Other acne Expected: 01/03/2022, Expires: 03/05/2022 [facility] Work Phone: Comment on above: Expected: 01/03/2022, Expires: 2 Start: 01-03-2022 End: 03-05-2022 Follitropin [Units/volume] in Serum or Plasma FSH BLD Lab Routine Irregular menstrual cycle Other acne Expected: 01/03/2022, Expires: 03/05/2022 [facility] Work Phone: Comment on above: Expected: 01/03/2022, Expires: 2 Start: 01-03-2022 End: 03-05-2022 Lutropin [Units/volume] in Serum or Plasma LUTEINIZING HORMONE Lab Routine Irregular menstrual cycle Other acne Expected: 01/03/2022, Expires: 03/05/2022 [facility] Work Phone: Comment on above: Expected: 01/03/2022, Expires: 2 Start: 01-03-2022 End: 03-05-2022 Thyrotropin [Units/volume] in Serum or Plasma TSH BLD Lab Routine Irregular menstrual cycle Other acne Expected: 01/03/2022, Expires: 03/05/2022 [facility] Work Phone: Comment on above: Expected: 01/03/2022, Expires: 2 Start: 09-07-2021 DEPRESSION ASSESSMENT DEPRESSION ASSESSMENT [facility] Start: 2021 CHLAMYDIA SCREENING (18-24) CHLAMYDIA SCREENING (18-24) [facility] Start: 07-31-2021 GC (GONORRHEA) SCREENING (18-24) GC (GONORRHEA) SCREENING (18-24) [facility] Start: 2021 HEPATITIS C SCREENING HEPATITIS C SCREENING [facility] Start: 2021 Hepatitis C screening Hepatitis C Screening [facility] Start: 2021 HIV SCREENING HIV SCREENING [facility] Start: 2021 HIV screening HIV Screening [facility] Start: 2021 Screening for Chlamydia trachomatis Chlamydia Screening (18-24) [facility] Start: 05-08-2020 Influenza vaccination Flu vaccine (#1) [place], [place] Start: 2019 Meningococcal B Vaccine (1 of 2 - Standard) Meningococcal B Vaccine (1 of 2 - Standard) [facility] Start: 2019 Meningococcal B Vaccine: Consider Based On Risk (1 of 2 - Patient Seeks Protection) Meningococcal B Vaccine: Consider Based On Risk (1 of 2 - Patient Seeks Protection) [facility] Start: 2019 MENINGOCOCCAL B: Consider based on risk (1 of 2 - Patient Seeks Protection) MENINGOCOCCAL B: Consider based on risk (1 of 2 - Patient Seeks Protection) [facility] Start: 2019 MENINGOCOCCAL CONJUGATE (1 - 2-dose series) MENINGOCOCCAL CONJUGATE (1 - 2-dose series) [facility] Start: 2018 HPV Vaccine (1 - 3-dose series) HPV Vaccine (1 - 3-dose series) [facility] Start: 2017 PEDS TO ADULT TRANSITION ANNUAL ASSESSMENT PEDS TO ADULT TRANSITION ANNUAL ASSESSMENT [facility] Start: 2015 Adult depression screening assessment DEPRESSION SCREENING [facility] Start: 2015 PEDS TO ADULT TRANSITION INITIAL DISCUSSION PEDS TO ADULT TRANSITION INITIAL DISCUSSION [facility] Start: 2014 HPV VACCINE (1 - 2-dose series) HPV VACCINE (1 - 2-dose series) [facility] Start: 2013 MENINGOCOCCAL B: Consider based on risk (1 of 2 - Risk Bexsero 2-dose series) MENINGOCOCCAL B: Consider based on risk (1 of 2 - Risk Bexsero 2-dose series) [facility] Start: 2012 HPV VACCINE (1 - 2-dose series) HPV VACCINE (1 - 2-dose series) [facility] Start: 2010 Urine microalbumin profile DTAP,TDAP,TD (1 - Tdap) [facility] Start: 2008 COVID-19 VACCINE (#1) COVID-19 VACCINE (#1) [facility] Start: 2008 COVID-19 VACCINE (1) COVID-19 VACCINE (1) [facility] Start: 2003 COVID-19 VACCINE (#1) COVID-19 VACCINE (#1) [facility] Start: 2003 HEPATITIS B (1 of 3 - 3-dose series) HEPATITIS B (1 of 3 - 3-dose series) [facility] Start: 2003 Hepatitis B Vaccine (1 of 3 - 3-dose series) Hepatitis B Vaccine (1 of 3 - 3-dose series) [facility] Bacteria identified in Urine by Culture URINE CULTURE Microbiology Routine Pelvic pressure in female 12/16/2023 2:04 PM EDT [facility] Work Phone: Bacteria identified in Urine by Culture URINE CULTURE Microbiology Routine Dysuria Ordered: 07/27/2024 [facility] Work Phone: Comment on above: Ordered: 07/27/2024 Bacteria identified in Urine by Culture URINE CULTURE Microbiology Routine Abdominal pain, unspecified abdominal location Ordered: 07/30/2024 [facility] Comment on above: Ordered: 07/30/2024 Bacteria identified in Urine by Culture BACTERIAL CULTURE, URINE Microbiology Routine Urinary tract infection symptoms Ordered: 10/07/2024 [facility] Work Phone: Comment on above: Ordered: 10/07/2024 Bacteria identified in Urine by Culture BACTERIAL CULTURE, URINE Microbiology Routine Encounter for supervision of normal first in second trimester Anxiety 16 weeks gestation of Cramping affecting , antepartum 10/28/2024 11:56 AM EST [facility] Work Phone: Bacteria identified in Urine by Culture BACTERIAL CULTURE, URINE Microbiology Routine 20 weeks gestation of Pelvic cramping 11/28/2024 9:47 AM EDT [facility] Bacteria identified in Urine by Culture BACTERIAL CULTURE, URINE Microbiology Routine Pelvic cramping 12/05/2024 10:06 AM EDT [facility] Work Phone: BACTERIAL VAGINOSIS NAAT BACTERIAL VAGINOSIS NAAT Lab Routine Abdominal pain, unspecified abdominal location Ordered: 07/30/2024 [facility] Comment on above: Ordered: 07/30/2024 BACTERIAL VAGINOSIS NAAT BACTERIAL VAGINOSIS NAAT Lab Routine Encounter for supervision of normal first in second trimester Cramping affecting , antepartum 10/28/2024 11:56 AM [facility] BACTERIAL VAGINOSIS NAAT BACTERIAL VAGINOSIS NAAT Lab Routine Vaginal itching Vaginal discharge 02/08/2025 9:50 AM EDT [facility] BREATH TEST GLUCOSE BREATH TEST GLUCOSE Endoscopy Routine Abdominal bloating Left sided abdominal pain 02/17/2024 8:48 AM [facility] Work Phone: KANG/TRICHOMONAS NAAT KANG/TRICHOMONAS NAAT Lab Routine Abdominal pain, unspecified abdominal location Ordered: 07/30/2024 [facility] Comment on above: Ordered: 07/30/2024 KANG/TRICHOMONAS NAAT KANG/TRICHOMONAS NAAT Lab Routine Encounter for supervision of normal first in second trimester Cramping affecting , antepartum 10/28/2024 11:56 AM [facility] KANG/TRICHOMONAS NAAT KANG/TRICHOMONAS NAAT Lab Routine Vaginal itching Vaginal discharge 02/08/2025 9:50 AM [facility] End: 09-09-2024 Choriogonadotropin.beta subunit [Units/volume] in Serum or Plasma HCG QUANTITATIVE Lab Routine of unknown anatomic location 3x per week for 6 Occurrences starting 08/10/2024 until 09/09/2024 [facility] Work Phone: Comment on above: 3x per week for 6 Occurrences starting 10/11/2023 until 09/09/2024 End: 08-31-2024 Choriogonadotropin.beta subunit [Units/volume] in Serum or Plasma HCG QUANTITATIVE Lab Routine with uncertain dates, antepartum 2x per week for 4 Occurrences starting 08/16/2024 until 08/31/2024 [facility] Comment on above: 2x per week for 4 Occurrences starting 1 10/17/2023 until 08/31/2024 Choriogonadotropin.b eta subunit [Units/volume] in Serum or Plasma HCG QUANTITATIVE Lab Routine with uncertain dates, antepartum 08/16/2024 2:04 PM [facility] COVID & INFLUENZA A/ B & RSV PCR, ROUTINE COVID & INFLUENZA A/B & RSV PCR, ROUTINE Microbiology Routine Abdominal pain, unspecified abdominal location Ordered: 07/30/2024 [facility] Work Phone: Comment on above: Ordered: 07/30/2024 EKG 12 Lead - Chest Pain EKG 12 Lead - Chest Pain ECG STAT 08/10/2020 9:08 PM [facility] [place], [place] nonstress test NON-S TRESS TEST Procedures Routine Decreased movements in third trimester, single or unspecified fetus (HCC) Ordered: 02/08/2025 [facility] Work Phone: Comment on above: Ordered: 02/08/2025 Influenza virus A an d B RNA and SARS-CoV-2 (COVID-19) N gene panel - Respiratory specimen by FAVIOLA with probe detection COVID & INFLUENZA A/B NAAT, ROUTINE Microbiology Routine Fatigue, unspecified type Ordered: 12/12/2023 [facility] Work Phone: Comment on above: Ordered: 12/12/2023 Microscopic observat ion [Identifier] in Vaginal fluid by Gram stain BACT/KANG VAG GRAM STAIN Microbiology Routine Vaginal discharge Vaginal odor Vaginal itching 01/03/2022 11:41 AM EDT [facility] Work Phone: End: 01-22-2025 MR Abdomen WO and W contrast IV MRI ABD ENTEROG WO/W IVCON Radiology Routine Abdominal bloating Elevated fecal calprotectin Generalized abdominal pain Nausea 1 Occurrences starting 12/24/2023 until 01/22/2025 [facility] Work Phone: Comment on above: 1 Occurrences starting 12/24/2023 until 01/22/2025 MR Abdomen WO and W contrast IV MRI ABD ENTEROG WO/W IVCON Radiology Routine Abdominal bloating Elevated fecal calprotectin Generalized abdominal pain Nausea 01/27/2024 2:25 PM EDT [facility] Work Phone: End: 02-13-2025 MR Brain WO and W contrast IV MRI BRAIN WO/W IVCON Radiology Routine Chronic migraine w/o aura w/o status migrainosus, not intractable Positional headache 1 Occurrences starting 01/15/2024 until 02/13/2025 [facility] Comment on above: 1 Occurrences starting 01/15/2024 until 02/13/2025 End: 01-22-2025 MR Pelvis WO and W contrast IV MRI PEL ENTEROG WO/W IVCON Radiology Routine Abdominal bloating Elevated fecal calprotectin Generalized abdominal pain Nausea 1 Occurrences starting 12/24/2023 until 01/22/2025 [facility] Work Phone: Comment on above: 1 Occurrences starting 12/24/2023 until 01/22/2025 MR Pelvis WO and W contrast IV MRI PEL ENTEROG WO/W IVCON Radiology Routine Abdominal bloating Elevated fecal calprotectin Generalized abdominal pain Nausea 01/27/2024 2:25 PM EDT [facility] End: 02-13-2025 MRA Head veins WO and W contrast IV MRV BRAIN WO/W IVCON Radiology Routine Chronic migraine w/o aura w/o status migrainosus, not intractable Positional headache 1 Occurrences starting 01/15/2024 until 02/13/2025 [facility] Comment on above: 1 Occurrences starting 01/15/2024 until 02/13/2025 NEURO CARDIO AUTONOM IC REFLEX W/WO TILT NEURO CARDIO AUTONOMIC REFLEX W/WO TILT Procedures Routine Orthostatic lightheadedness Disturbance of skin sensation Ordered: 01/15/2024 [facility] Work Phone: Comment on above: Ordered: 01/15/2024 NEURO QSART NEURO QSART Proc edures Routine Orthostatic lightheadedness Disturbance of skin sensation Ordered: 01/15/2024 [facility] Comment on above: Ordered: 01/15/2024 Patient Education [facility] Work Phone: Patient referral [facility] Work Phone: PELVIC US WHI PELVIC US WHI An c Imaging Routine Pelvic pain in female 1 Occurrences starting 01/03/2022 [facility] Work Phone: Comment on above: 1 Occurrences starting 01/03/2022 ROUTINE, GR OUP B STREPTOCOCCUS BY PCR ROUTINE, GROUP B STREPTOCOCCUS BY PCR Microbiology Routine 36 weeks gestation of ([facility]) 03/20/2025 11:13 AM EDT [facility] SKIN BIOPSY FOR NEUROPATHY/CNL SKIN BIOPSY FOR NEUROPATHY/CNL Procedures Routine Orthostatic lightheadedness Disturbance of skin sensation Chronic migraine w/o aura w/o status migrainosus, not intractable Ordered: 01/15/2024 [facility] Comment on above: Ordered: 01/15/2024 Tdap vaccine 7 yrs/> im TDAP VAC CINE, AGE 7+ YR (ADACEL, BOOSTRIX) Immunization/Injection Routine Encounter for immunization Ordered: 05/10/2024 [facility] Work Phone: Comment on above: Ordered: 05/10/2024 UA DIP B/O UA DIP B/O Lab R outine 20 weeks gestation of Pelvic cramping Ordered: 11/28/2024 [facility] Work Phone: Comment on above: Ordered: 11/28/2024 URINE OB DIP B/O URINE OB DIP B/ O Lab Routine Encounter for supervision of high risk in third trimester, antepartum ([facility]) Anemia during in third trimester ([facility]) macrosomia during in third trimester, single or unspecified fetus (HCC) 34 weeks gestation of (HCC) Ordered: 03/06/2025 [facility] Work Phone: Comment on above: Ordered: 03/06/2025 URINE OB DIP B/O URINE OB DIP B/ O Lab Routine 35 weeks gestation of ([facility]) Encounter for supervision of high risk in third trimester, antepartum ([facility]) Ordered: 03/14/2025 [facility] Work Phone: Comment on above: Ordered: 03/14/2025 URINE OB DIP B/O URINE OB DIP B/ O Lab Routine 36 weeks gestation of ([facility]) Encounter for supervision of high risk in third trimester, antepartum ([facility]) Anemia during in third trimester ([facility]) Ordered: 03/20/2025 [facility] Work Phone: Comment on above: Ordered: 03/20/2025 Urine test visual color cmprsn meths HCG QUAL UR B/O Lab Routine Nausea Ordered: 07/27/2024 [facility] Comment on above: Ordered: 07/27/2024 End: 01-14-2025 US Pelvis transvaginal US FEMALE PELVIS TRANSVAG Radiology Routine Female dyspareunia Pelvic pressure in female 1 Occurrences starting 12/16/2023 until 01/14/2025 [facility] Work Phone: Comment on above: 1 Occurrences starting 12/16/2023 until 01/14/2025 US Pelvis transvaginal US FEMALE PELVIS TRANSVAG Radiology Routine Female dyspareunia Pelvic pressure in female 12/16/2023 4:14 PM EDT [facility] Work Phone: End: 02-02-2023 Us transvaginal US FEMALE PELVIS TRANSVAG Radiology Routine Pelvic pain in female 1 Occurrences starting 01/03/2022 until 02/02/2023 [facility] Work Phone: Comment on above: 1 Occurrences starting 01/03/2022 until 02/02/2023 End: 09-12-2024 Us transvaginal US FEMALE PELVIS TRANSVAG Radiology Routine Pelvic pain in female 1 Occurrences starting 08/14/2023 until 09/12/2024 [facility] Work Phone: Comment on above: 1 Occurrences starting 08/14/2023 until 09/12/2024 End: 08-10-2020 XR CHEST (2 VW) XR CHEST (2 VW) Imaging STAT Once for 1 Occurrences starting 08/10/2020 until 08/10/2020 [facility] [place] Comment on above: Once for 1 Occurrences starting 08/10/20 until 08/10/2020 [facility] Immunizations Immunization Date Immunization Notes Care Provider [facility] 01-24-2025 tetanus toxoid, redu gabi diphtheria toxoid, and acellular pertussis vaccine, adsorbed Jasmin Archer MD Work Phone: [facility] 06-07-2024 tetanus toxoid, redu gabi diphtheria toxoid, and acellular pertussis vaccine, adsorbed Nurse Londono Work Phone: [facility] 05-13-2019 varicella virus vaccine Lul n Tiffany CLOTH COLORS EXAMINER.BOOKING SUPERVISOR Work Phone: [facility] Work Phone: 05-03-2019 meningococcal polysaccharide (groups A, C, Y and W-135) diphtheria toxoid conjugate vaccine (MCV4P) Chrystal Allen APRN.BOOKING SUPERVISOR Work Phone: [facility] Work Phone: 04-10-2014 meningococcal polysaccharide (groups A, C, Y and W-135) diphtheria toxoid conjugate vaccine (MCV4P) Chrystal Allen APRN.[facility] Work Phone: [facility] Work Phone: 04-10-2014 tetanus toxoid, redu gabi diphtheria toxoid, and acellular pertussis vaccine, adsorbed Chrystal Allen APRN.[facility] Work Phone: [facility] Work Phone: 08-18-2011 influenza virus vacc ine, live, attenuated, for intranasal use Chrystal Allen APRN.BOOKING SUPERVISOR Work Phone: [facility] Work Phone: 08-18-2011 influenza virus vacc ine, unspecified formulation Chrystal Allen APRN.[facility] Work Phone: [facility] 06-07-2008 diphtheria, tetanus toxoids and acellular pertussis vaccine, unspecified formulation Chrystal Allen CLOTH COLORS EXAMINER.[facility] Work Phone: [facility] Work Phone: 06-07-2008 measles, mumps and rubella virus vaccine Chrystal Tiffany CLOTH COLORS EXAMINER.BOOKING SUPERVISOR Work Phone: [facility] Work Phone: 06-07-2008 poliovirus vaccine, inactivated Chrystal Allen APRN.[facility] Work Phone: [facility] Work Phone: 06-06-2005 diphtheria, tetanus toxoids and acellular pertussis vaccine Chrystal Tiffany CLOTH COLORS EXAMINER.BOOKING SUPERVISOR Work Phone: [facility] Work Phone: 06-06-2005 measles, mumps and rubella virus vaccine Chrystal Allen CLOTH COLORS EXAMINER.BOOKING SUPERVISOR Work Phone: [facility] Work Phone: 06-06-2005 poliovirus vaccine, inactivated Chrystal Allen CLOTH COLORS EXAMINER.BOOKING SUPERVISOR Work Phone: [facility] Work Phone: Payers Date Payer Category Payer Self-pay [id number] 2023 [facility] Blue Shield [id number] 2023 Unknown [id number] 2023 Medicaid [id number] 2023 Unknown [id number] 2023 Private Health Insurance [id number] 2023 Private Health Insurance [id number] 2021 Unknown CESAR GUERRERO BS FEP PPO [id number] 2021-Present [phone] [address] [place] [address] PPO [id number] 2021 Unknown [id number] Unknown [id number] Unknown [id number] Social History Date Type Detail Facility Start: 08-10-2020 End: 08-14-2023 Tobacco smoking status ORIS Never smoker [facility] Start: 08-10-2020 Alcohol intake [facility] Start: 12-24-2021 End: 05-02-2022 Exposure to SARS-CoV-2 (event) Not sure [facility] Start: 12-30-2021 End: 05-27-2022 Tobacco smoking status NHIS Unknown if ever smoked [facility] Work Phone: Start: 2003 Sex Assigned At Female C [facility] Start: 01-08-2019 End: 08-14-2023 Tobacco use and exposure Smokeless tobacco non-user [facility] Start: 01-03-2022 End: 03-20-2025 Alcohol intake Lifetime non-drinker (finding) [facility] Start: 01-03-2022 History SDOH Alcohol Frequency 1 [facility] Start: 05-01-2022 End: 08-12-2024 History of Social function [facility] Start: 05-01-2022 End: 08-12-2024 Tobacco use panel [facility] National Score (1-10 0), lower number is lower risk 82 [facility] Start: 04-27-2022 Gender identity Identifies as female gender (finding) [facility] Start: 08-14-2023 Education 13 [facility] Do you belong to any clubs or organizations such as jehovah's witness groups, unions, fraternal or athletic groups, or school groups? Yes [facility] Are you now , , , , never or living with a partner? [facility] How often to you hav e a drink containing alcohol? Never [facility] Do you feel stress - tense, restless, nervous, or anxious, or unable to sleep at night because your mind is troubled all the time - these days [OSQ] Rather much [facility] At any time in the p ast 12 months, were you homeless or living in intermediate [including now]? No [facility] Start: 07-22-2024 [facility] Start: 12-05-2024 Sex Female (finding) [facility] NEGATED: Highlighted rowStart: NINF History of tobacco use Passive smoker [facility] Work Phone: Goals Date Patient Goal Desired Activity /State Personal health goal Functional Status Date Assessment Result Facility 01-29-2025 Are you deaf, or do you have serious difficulty hearing No 01/29/2025 7:13 PM MADHURIT Chrystal Hoskins, UMAIR No [facility] 01-29-2025 Are you blind, or do you have serious difficulty seeing, even when wearing glasses No 01/29/2025 7:13 PM MADHURIT Chrystal Hoskins, UMAIR No [facility] 01-29-2025 Do you have serious difficulty walking or climbing stairs No 01/29/2025 7:13 PM EDT Chrystal Hoskins, UMAIR No [facility] 01-29-2025 Do you have difficul ty dressing or bathing No 01/29/2025 7:13 PM EDT Chrystal Hoskins, UMAIR No [facility] 01-29-2025 Because of a physica l, mental, or emotional condition, do you have difficulty doing errands alone such as visiting a physician's office or shopping No 01/29/2025 7:13 PM EDT Chrystal Hoskins RN No [facility] 11-21-2024 Are you deaf, or do you have serious difficulty hearing No 11/21/2024 7:28 PM EDT Kourtney Resendiz RN No [facility] 11-21-2024 Are you blind, or do you have serious difficulty seeing, even when wearing glasses No 11/21/2024 7:28 PM EDT Kourtney Resendiz RN No [facility] 11-21-2024 Do you have serious difficulty walking or climbing stairs No 11/21/2024 7:28 PM EDT Kourtney Resendiz RN No [facility] 11-21-2024 Do you have difficul ty dressing or bathing No 11/21/2024 7:28 PM MADHURIT Kourtney Resendiz, UMAIR No [facility] 11-21-2024 Because of a physica l, mental, or emotional condition, do you have difficulty doing errands alone such as visiting a physician's office or shopping No 11/21/2024 7:28 PM EDT Kourtney Resendiz RN No [facility] 07-06-2023 Are you deaf, or do you have serious difficulty hearing No 07/06/2023 2:18 PM EDSarwat Espitia RN No [facility] 07-06-2023 Are you blind, or do you have serious difficulty seeing, even when wearing glasses No 07/06/2023 2:18 PM EDT Sarwat Manuel RN No [facility] 07-06-2023 Do you have serious difficulty walking or climbing stairs No 07/06/2023 2:18 PM EDT Sarwat Manuel, UMAIR No [facility] 07-06-2023 Do you have difficul ty dressing or bathing No 07/06/2023 2:18 PM EDT Sarwat Manuel, UMAIR No [facility] 07-06-2023 Because of a physica l, mental, or emotional condition, do you have difficulty doing errands alone such as visiting a physician's office or shopping No 07/06/2023 2:18 PM EDT Sarwat Manuel RN No [facility] Mental Status Date Assessment Result Facility 01-29-2025 Because of a physica l, mental, or emotional condition, do you have serious difficulty concentrating, remembering, or making decisions No 01/29/2025 7:13 PM EDT Chrystal Hoskins, UMAIR No [facility] 11-21-2024 Because of a physica l, mental, or emotional condition, do you have serious difficulty concentrating, remembering, or making decisions No 11/21/2024 7:28 PM EDT Kourtney Resendiz RN No [facility] 07-06-2023 Because of a physica l, mental, or emotional condition, do you have serious difficulty concentrating, remembering, or making decisions No 07/06/2023 2:18 PM EDT Sarwat Manuel RN No [facility] Clinical Notes 10-31-2021 to 03-28-2025 Telephone Encounter - Mc Diamond MD - 03/28/2025 10:03 AM EDTTelephone Encounter - Mc Diamond MD - 03/28/2025 10:03 AM EDTTelephone Encounter - Veronica Mcdonald RN - 03/28/2025 9:22 AM EDT Note Date & Type Note Facility 03-28-2025 Telephone encounter Note Noted Mc Diamond MD [facility] 03-28-2025 Miscellaneous Notes Noted Mc Diamond MD 37w4d Calling c/o losing mucous plug. No bleeding, leaking fluid or regular contractions. Good movement. Only having intermittent mild cramping. Advised to monitor for now and can be normal to lose mucous plug days before going into labor. Labor precautions reviewed. To call or go to L&D with regular contractions, bleeding, leaking fluid or decreased movement. Patient agreed. Only call with further advice. Next visit with JG 03/30. Veronica Mcdonald RN documented in this encounter [facility] 03-28-2025 Telephone encounter Note 37w4d Calling c/o losing mucous plug. No bleeding, leaking fluid or regular contractions. Good movement. Only having intermittent mild cramping. Advised to monitor for now and can be normal to lose mucous plug days before going into labor. Labor precautions reviewed. To call or go to L&D with regular contractions, bleeding, leaking fluid or decreased movement. Patient agreed. Only call with further advice. Next visit with JLeo 03/30. Veronica Mcdonald RN [facility] 03-20-2025 Note Indication Evaluation of growth Impression - Single, live, intrauterine . - presentation is cephalic. - The biometry is ahead of the assigned gestational dating. - The EFW is 3681 g, at the 98%. AC is at the >99%. - Amniotic fluid volume is mild polyhydramnios with an MVP of 8.4 cm and CARLOS of 23.2 cm. - The placenta is anterior, fundal. - No malformations visualized on a limited survey as detailed below. Recommendations Additional follow-up as clinically indicated (but recheck growth and fluid in 3-4 weeks if still ). Maternal Assessment Height 163 cm Height (ft) 5 ft Height (in) 4 in Physical Exam Initial weight (lb) 141 lb Initial BMI 24.20 kg/m Maternal assessment other: 1 Para 0 REMOTE READ Method Transabdominal ultrasound examination. View: Suboptimal view: limited by position [place]ona . Number of fetuses: 1 Dating LMP on: 07/08/2024 Cycle: LMP date uncertain GA by LMP 36 w + 3 d FELIPE by LMP: 04/14/2025 GA by prior assessment 36 w + 3 d FELIPE by prior assessment: 04/14/2025 Ultrasound examination on: 03/20/2025 GA by U/S based upon: AC, BPD, Femur, HC GA by U/S 38 w + 0 d FELIPE by U/S: 04/03/2025 Assigned: based on stated FELIPE, selected on 02/16/2025 Assigned GA 36 w + 3 d Assigned FELIPE: 04/14/2025 General Evaluation Cardiac activity present. FHR 159 bpm. movements: present. Presentation: cephalic Placenta: Placental site: anterior, fundal Umbilical cord: Cord vessels: 3 vessel cord Amniotic fluid: Amount of AF: mild polyhydramnios. MVP 8.4 cm. CARLOS 23.2 cm. Q1 7.3 cm, Q2 8.4 cm, Q3 3.4 cm, Q4 4.2 cm Growth Overview Exam date GA BPD (mm) HC (mm) AC (mm) FL (mm) HL (mm) EFW (g) 11/28/2024 20w 3d 48 53% 175.4 38% 158.3 62% 33.1 62% 32.9 75% 362 52% 02/16/2025 31w 6d 86.4 98% 312.4 86% 306.4 98% 60.5 47% 2259 91% 03/20/2025 36w 3d 94.1 95% 329.8 57% 373.7 >99% 69.2 55% 3681 98% Biometry Standard BPD 94.1 mm 38w 2d 95% Hadlock OFD 113.0 mm 35w 0d 39% Nicolaides HC 329.8 mm 37w 0d 57% Charlotte AC 373.7 mm 41w 2d >99% Hadlock Femur 69.2 mm 35w 1d 55% Charlotte EFW 3,681 g -/- 98% Hadlock EFW (lb) 8 lb EFW (oz) 2 oz EFW by: Hadlock (HC-AC-FL) Extended Print Room Worker 8.8 mm Extremities / Bony Struc FL / HC 0.21 Other Structures FHR 159 bpm Anatomy Lateral ventricles: normal Cavum septi pellucidi: normal Cerebellum: normal Cisterna magna: normal 4-chamber view: suboptimally visualized RVOT view: normal LVOT view: normal 3-vessel view: normal Heart / Thorax Situs: situs solitus (normal) Diaphragm: normal Stomach: normal Kidneys: normal Bladder: normal sex: female Wants to know sex: yes Performed By: Nano Whelan RDMS, RVT Read By: Yessy Orr M.D. [facility] 03-20-2025 Progress note Formatting of t his note might be different from the original. RR- VB No. LOF No. CTXS crampy. Movement: present. Other c/o: some hip pain, some vulvar pruritus just at apex of introitus Medication list reviewed. SENSITIVE EXAM: Sensitive exam not performed. Physical Exam See Flow Sheet Abd: soft, nontender, gravid : external genitalia: normal and no erytjema, vagina: discharge: clear, white, Ext: edema: 1+ A/P 36w3d Estimated Date of Delivery: 04/14/25 Assessment & Plan 36 weeks gestation of ([facility]) Orders: ROUTINE, GROUP B STREPTOCOCCUS BY PCR URINE OB DIP B/O CONSULT TO PHYSICAL THERAPY; Future KANG/TRICHOMONAS NAAT BACTERIAL VAGINOSIS NAAT Encounter for supervision of high risk in third trimester, antepartum ([facility]) Orders: URINE OB DIP B/O CONSULT TO PHYSICAL THERAPY; Future KANG/TRICHOMONAS NAAT BACTERIAL VAGINOSIS NAAT Anemia during in third trimester ([facility]) Orders: URINE OB DIP B/O lGA on US, official report pending. D/w her can be electively induced at 39 weeks, wouldn't recommend elective primary c/s medically unless approx 5000 gm. No true allergy to PCN, family allergic. Multiple allergies that are more intolerances. She is not allergic to PCN, family is d/w her this is not contraindication to treatment w/ pcn vaginitis swabs done for pruritus consult PT for hip pain Eduin Dominguez M.D. [facility] 03-20-2025 Miscellaneous Notes RR- VB No. LOF No. CTXS crampy. Movement: present. Other c/o: some hip pain, some vulvar pruritus just at apex of introitus Medication list reviewed. SENSITIVE EXAM: Sensitive exam not performed. Physical Exam See Flow Sheet Abd: soft, nontender, gravid : external genitalia: normal and no erytjema, vagina: discharge: clear, white, Ext: edema: 1+ A/P 36w3d Estimated Date of Delivery: 04/14/25 Assessment & Plan 36 weeks gestation of ([facility]) Orders: ROUTINE, GROUP B STREPTOCOCCUS BY PCR URINE OB DIP B/O CONSULT TO PHYSICAL THERAPY; Future KANG/TRICHOMONAS NAAT BACTERIAL VAGINOSIS NAAT Encounter for supervision of high risk in third trimester, antepartum ([facility]) Orders: URINE OB DIP B/O CONSULT TO PHYSICAL THERAPY; Future KANG/TRICHOMONAS NAAT BACTERIAL VAGINOSIS NAAT Anemia during in third trimester ([facility]) Orders: URINE OB DIP B/O lGA on US, official report pending. D/w her can be electively induced at 39 weeks, wouldn't recommend elective primary c/s medically unless approx 5000 gm. No true allergy to PCN, family allergic. Multiple allergies that are more intolerances. She is not allergic to PCN, family is d/w her this is not contraindication to treatment w/ pcn vaginitis swabs done for pruritus consult PT for hip pain Eduin Dominguez M.D. documented in this encounter [facility] 03-20-2025 Instructions Nicky Thompson MA - 03/20/2025 10:17 AM EDT SEQUENTIAL SCREENINGS The [facility] offers sequential screenings for women who are interested in screenings for chromosomal abnormalities and certain defects during a . The sequential screen combines ultrasound and blood tests to determine the risk of chromosomal abnormalities, including Down's Syndrome (Trisomy 21) and Trisomy 18, as well as open neural tube defects including spina bifida. Ultrasound examination is performed between 11 weeks and 13 weeks gestational age. Blood tests are drawn after the ultrasound and again later in the between 15 and 21 weeks gestational age. Please let your physician know if you are interested in this testing. It will require an appointment with our platform power technician. This is not an ultrasound performed by a physician in our office during a routine visit. SIGNS AND SYMPTOMS OF LABOR 1. Contractions every 10 minutes or more often 2. Clear, pink, or brownish fluid (water) leaking from vagina 3. Feeling that baby is pushing down, pressure 4. Low, dull backache 5. Cramps that feel like a period 6. Cramps with or without diarrhea If you notice any of the above symptoms, contact our office at [phone] and ask to speak with a nurse. After hours, you can call doctors registry at [phone] OR call [facility] at [phone] and ask to have the doctor dehydration plant operator paged. If you consider this an emergency, dial 8-7-3 or go to your nearest emergency department. NEED HELP? Are you dealing with a violent or abusive relationship? Are you a victim of rape or sexual assult? Call [facility] ([place]) 24 hour Crisis Hotline: 310.869.4430 or 380-370-7900. MANUAL Your Guide to a Healthy manual is now on-line. Visit [email or web address] to download your free copy documented in this encounter [facility] 03-14-2025 Progress note Formatting of t his note might be different from the original. KJ - S: Rhonda denies LOF, contractions or vaginal bleeding. Patient presents with bilateral rib pain that radiates to her back. This has been going on for a while but is getting worse. Also she reports bilateral hip pain. Also she reports bilateral LE swelling that improves overnight. O: 35w4d, see flow sheet Abdomen: soft, NT, gravid Extremities: 1+ bilateral LE edema SENSITIVE EXAM: Sensitive exam not performed. A/P: Assessment & Plan 35 weeks gestation of ([facility]) Orders: URINE OB DIP B/O Encounter for supervision of high risk in third trimester, antepartum ([facility]) Orders: URINE OB DIP B/O Musculoskeletal pain Advised on conservative measures for this & LE edema of . Reviewed PTL & FM precautions Follow up as scheduled next week for US and routine visit or PRN. Mc Diamond MD [facility] 03-14-2025 Miscellaneous Notes KJ - S: Rhonda denies LOF, contractions or vaginal bleeding. Patient presents with bilateral rib pain that radiates to her back. This has been going on for a while but is getting worse. Also she reports bilateral hip pain. Also she reports bilateral LE swelling that improves overnight. O: 35w4d, see flow sheet Abdomen: soft, NT, gravid Extremities: 1+ bilateral LE edema SENSITIVE EXAM: Sensitive exam not performed. A/P: Assessment & Plan 35 weeks gestation of ([facility]) Orders: URINE OB DIP B/O Encounter for supervision of high risk in third trimester, antepartum ([facility]) Orders: URINE OB DIP B/O Musculoskeletal pain Advised on conservative measures for this & LE edema of . Reviewed PTL & FM precautions Follow up as scheduled next week for US and routine visit or PRN. Mc Diamond MD documented in this encounter [facility] 03-14-2025 Instructions Tiara Quintero MA - 03/14/2025 8:39 AM EDT SEQUENTIAL SCREENINGS The [facility] offers sequential screenings for women who are interested in screenings for chromosomal abnormalities and certain defects during a . The sequential screen combines ultrasound and blood tests to determine the risk of chromosomal abnormalities, including Down's Syndrome (Trisomy 21) and Trisomy 18, as well as open neural tube defects including spina bifida. Ultrasound examination is performed between 11 weeks and 13 weeks gestational age. Blood tests are drawn after the ultrasound and again later in the between 15 and 21 weeks gestational age. Please let your physician know if you are interested in this testing. It will require an appointment with our platform power technician. This is not an ultrasound performed by a physician in our office during a routine visit. SIGNS AND SYMPTOMS OF LABOR 1. Contractions every 10 minutes or more often 2. Clear, pink, or brownish fluid (water) leaking from vagina 3. Feeling that baby is pushing down, pressure 4. Low, dull backache 5. Cramps that feel like a period 6. Cramps with or without diarrhea If you notice any of the above symptoms, contact our office at [phone] and ask to speak with a nurse. After hours, you can call doctors registry at [phone] OR call [facility] at [phone] and ask to have the doctor dehydration plant operator paged. If you consider this an emergency, dial 7-0-7 or go to your nearest emergency department. NEED HELP? Are you dealing with a violent or abusive relationship? Are you a victim of rape or sexual assult? Call [facility] ([place]) 24 hour Crisis Hotline: 912.368.7263 or 193-101-0819. MANUAL Your Guide to a Healthy manual is now on-line. Visit [email or web address] to download your free copy documented in this encounter [facility] 03-13-2025 Telephone encounter Note Ok [facility] Work Phone: 03-13-2025 Miscellaneous Notes Ok Pt stated she has no BP monitor at home. Discussed with Dr. Archer that Pt states pain is now located in Right and left upper rib area/centralized upper abdomen. Pt states changing positions does not help. Pt describes as Achy. Pt denies vaginal bleeding. When asking Pt if baby has been active-she states Not as active as she normally is. Explained to Pt that we want at least 6 to 10 movements in 1 hr or less and Pt states she is not sure. Informed Pt that d/t noted complaints with prior nurse and with myself and after talking with MD, it is best that she go to L&D to be evaluated. Pt began to explain that she cannot afford another hospital visit at this time and every time she calls she feels she is sent to the hospital and then has to pay a copay. This RN apologized to Pt; However, explained that our top priority is the safety of her and her baby. Informed her that we are able to monitor baby and do an assessment in office, but that the hospital has many more resources available if she were to need stat labs as if we did labs we may not get them back right away. Pt voiced understanding, but stated she did just eat something and wants to monitor kick counts. Education sent to Pt via [employer]. Pt states these sx have been occurring for several days-so she feels it's unlikely serious and would like appt scheduled in office tomorrow AM and is agreeable to go to hospital if pain worsens. Advised Pt to it would be best to have someone get a BP monitor from a local drug store and to monitor BP and if >140/100 to call the office. Also advised Pt to call 911/have someone take her to ER if she develops severe abdominal pain, vaginal bleeding, decreased movement. Pt voiced understanding. Advised her to stay hydrated, rest, use heating pad to back/take hot shower, rest, and call office with any further questions/concerns. Negrita Colby RN If she can some how take her BP at home and its normal than she can keep her scheduled appointment 35w3d Patient called with c/o increased edema in her feet for at least a week. The swelling makes her feet feel itchy. Also, c/o left sided rib pain that will improve with position changes. Will hurt if she laughs, coughs, or sneezes. Feels bruised. Patient concerned for Pre E since there is a family hx. Asking if she should be seen. Discussed continuing to drink plenty of water, elevate legs when able, compression stockings and limiting sodium in diet. Denies RUQ pain, dizziness, ANTHONY, or vision changes. States she will occasionally have blurred vision, but that could related to the fact that she wears glasses, she said. Next OB visit 03/20. Jasmin Soni, UMAIR documented in this encounter [facility] 03-13-2025 Telephone encounter Note Pt stated she has no BP monitor at home. Discussed with Dr. Archer that Pt states pain is now located in Right and left upper rib area/centralized upper abdomen. Pt states changing positions does not help. Pt describes as Achy. Pt denies vaginal bleeding. When asking Pt if baby has been active-she states Not as active as she normally is. Explained to Pt that we want at least 6 to 10 movements in 1 hr or less and Pt states she is not sure. Informed Pt that d/t noted complaints with prior nurse and with myself and after talking with MD, it is best that she go to L&D to be evaluated. Pt began to explain that she cannot afford another hospital visit at this time and every time she calls she feels she is sent to the hospital and then has to pay a copay. This RN apologized to Pt; However, explained that our top priority is the safety of her and her baby. Informed her that we are able to monitor baby and do an assessment in office, but that the hospital has many more resources available if she were to need stat labs as if we did labs we may not get them back right away. Pt voiced understanding, but stated she did just eat something and wants to monitor kick counts. Education sent to Pt via [employer]. Pt states these sx have been occurring for several days-so she feels it's unlikely serious and would like appt scheduled in office tomorrow AM and is agreeable to go to hospital if pain worsens. Advised Pt to it would be best to have someone get a BP monitor from a local drug store and to monitor BP and if >140/100 to call the office. Also advised Pt to call 911/have someone take her to ER if she develops severe abdominal pain, vaginal bleeding, decreased movement. Pt voiced understanding. Advised her to stay hydrated, rest, use heating pad to back/take hot shower, rest, and call office with any further questions/concerns. Negrita Colby RN [facility] 03-13-2025 Telephone encounter Note If she can some how take her BP at home and its normal than she can keep her scheduled appointment [facility] 03-13-2025 Telephone encounter Note 35w3d Patient called with c/o increased edema in her feet for at least a week. The swelling makes her feet feel itchy. Also, c/o left sided rib pain that will improve with position changes. Will hurt if she laughs, coughs, or sneezes. Feels bruised. Patient concerned for Pre E since there is a family hx. Asking if she should be seen. Discussed continuing to drink plenty of water, elevate legs when able, compression stockings and limiting sodium in diet. Denies RUQ pain, dizziness, ANTHONY, or vision changes. States she will occasionally have blurred vision, but that could related to the fact that she wears glasses, she said. Next OB visit 03/20. Jasmin Soni, UMAIR [facility] 03-06-2025 Progress note Formatting of t his note might be different from the original. S: Rhonda Cohen is a 19 year old female who presents at 34 weeks gestation for a routine visit. Positive movements. Increased hip and back pain. Unsure about chronic care nurse. Denies headache, visual changes, chest pain, shortness of breath, vaginal bleeding, leakage of fluid, or dysuria. Feeling well, no complaints. O: See flow sheet Gen: No apparent distress Abd: Gravid, non tender ASSESSMENT/PLAN: 1. Encounter for supervision of high risk in third trimester, antepartum 2. Anemia during in third trimester 3. macrosomia during in third trimester, single or unspecified fetus 4. 34 weeks gestation of - Completed iron transfusions - EFW 91%, AC 98% - Continue vitamin and ASA daily - PTL precautions and kick counts reviewed - RTO 2 weeks Swati Salguero APRN.CNM [facility] Work Phone: 03-06-2025 Miscellaneous Notes S: Rhonda Cohen is a 19 year old female who presents at 34 weeks gestation for a routine visit. Positive movements. Increased hip and back pain. Unsure about chronic care nurse. Denies headache, visual changes, chest pain, shortness of breath, vaginal bleeding, leakage of fluid, or dysuria. Feeling well, no complaints. O: See flow sheet Gen: No apparent distress Abd: Gravid, non tender ASSESSMENT/PLAN: 1. Encounter for supervision of high risk in third trimester, antepartum 2. Anemia during in third trimester 3. macrosomia during in third trimester, single or unspecified fetus 4. 34 weeks gestation of - Completed iron transfusions - EFW 91%, AC 98% - Continue vitamin and ASA daily - PTL precautions and kick counts reviewed - RTO 2 weeks Swati Salguero APRN.CNM documented in this encounter [facility] 03-06-2025 Instructions Nicky Thompson MA - 03/06/2025 8:13 AM EDT SEQUENTIAL SCREENINGS The [facility] offers sequential screenings for women who are interested in screenings for chromosomal abnormalities and certain defects during a . The sequential screen combines ultrasound and blood tests to determine the risk of chromosomal abnormalities, including Down's Syndrome (Trisomy 21) and Trisomy 18, as well as open neural tube defects including spina bifida. Ultrasound examination is performed between 11 weeks and 13 weeks gestational age. Blood tests are drawn after the ultrasound and again later in the between 15 and 21 weeks gestational age. Please let your physician know if you are interested in this testing. It will require an appointment with our platform power technician. This is not an ultrasound performed by a physician in our office during a routine visit. SIGNS AND SYMPTOMS OF LABOR 1. Contractions every 10 minutes or more often 2. Clear, pink, or brownish fluid (water) leaking from vagina 3. Feeling that baby is pushing down, pressure 4. Low, dull backache 5. Cramps that feel like a period 6. Cramps with or without diarrhea If you notice any of the above symptoms, contact our office at [phone] and ask to speak with a nurse. After hours, you can call doctors registry at [phone] OR call [facility] at [phone] and ask to have the doctor dehydration plant operator paged. If you consider this an emergency, dial 0-1-6 or go to your nearest emergency department. NEED HELP? Are you dealing with a violent or abusive relationship? Are you a victim of rape or sexual assult? Call [facility] ([facility] 24 hour Crisis Hotline: 714.419.7273 or 596-285-7596. MANUAL Your Guide to a Healthy manual is now on-line. Visit [email or web address] to download your free copy documented in this encounter [facility] 02-20-2025 Instructions Sydney Amador MA - 02/20/2025 9:08 AM EDT SEQUENTIAL SCREENINGS The [facility] offers sequential screenings for women who are interested in screenings for chromosomal abnormalities and certain defects during a . The sequential screen combines ultrasound and blood tests to determine the risk of chromosomal abnormalities, including Down's Syndrome (Trisomy 21) and Trisomy 18, as well as open neural tube defects including spina bifida. Ultrasound examination is performed between 11 weeks and 13 weeks gestational age. Blood tests are drawn after the ultrasound and again later in the between 15 and 21 weeks gestational age. Please let your physician know if you are interested in this testing. It will require an appointment with our platform power technician. This is not an ultrasound performed by a physician in our office during a routine visit. SIGNS AND SYMPTOMS OF LABOR 1. Contractions every 10 minutes or more often 2. Clear, pink, or brownish fluid (water) leaking from vagina 3. Feeling that baby is pushing down, pressure 4. Low, dull backache 5. Cramps that feel like a period 6. Cramps with or without diarrhea If you notice any of the above symptoms, contact our office at [phone] and ask to speak with a nurse. After hours, you can call doctors registry at [phone] OR call [facility] at [phone] and ask to have the doctor dehydration plant operator paged. If you consider this an emergency, dial 9-2-7 or go to your nearest emergency department. NEED HELP? Are you dealing with a violent or abusive relationship? Are you a victim of rape or sexual assult? Call [facility] ([place]) 24 hour Crisis Hotline: 251.118.2713 or 679-630-0396. MANUAL Your Guide to a Healthy manual is now on-line. Visit [email or web address] to download your free copy documented in this encounter [facility] 02-20-2025 Miscellaneous Notes EH - S: Rhonda is a 19 year old female who presents at 32w3d for a routine visit. Feeling movement. Denies headache, visual changes, chest pain, shortness of breath, vaginal bleeding, leakage of fluid, or dysuria. Feeling well, no complaints. Asking for disability card due to swelling in feet bilaterally and pain associated with this. O: See flow sheet Gen: No apparent distress Abd: Gravid, nontender, S>D, 41 lb TWG ASSESSMENT/PLAN: 1. Encounter for supervision of high risk in third trimester, antepartum (HCC) - ICD9: V23.9, ICD10: O09.93 (primary diagnosis) - Continue PNV and LDA - Recommend compression stockings for swelling to bilateral LE - Asking for dermatology referral for acne. Reviewed acne may improve after delivery. 2. 32 weeks gestation of ([facility]) - ICD9: V22.2, ICD10: Z3A.32 3. Anemia during in third trimester ([facility]) - ICD9: 648.23, ICD10: O99.013 - Started iron transfusions - Recheck CBC next visit 4. macrosomia during in third trimester, single or unspecified fetus ([facility]) - ICD9: 656.63, ICD10: O36.63X0 - The EFW is 2259 g, at the 91%. AC is at the 98%. - Consider 36 week growth. Briefly discussed primary c/s vs vaginal delivery. Rediscuss closer to delivery date. PTL precautions and kick counts reviewed. RTO in 2 weeks or sooner as needed. Shira Gloria APRN.BOOKING SUPERVISOR documented in this encounter [facility] 02-20-2025 Progress note Formatting of t his note might be different from the original. EH - S: Rhonda is a 19 year old female who presents at 32w3d for a routine visit. Feeling movement. Denies headache, visual changes, chest pain, shortness of breath, vaginal bleeding, leakage of fluid, or dysuria. Feeling well, no complaints. Asking for disability card due to swelling in feet bilaterally and pain associated with this. O: See flow sheet Gen: No apparent distress Abd: Gravid, nontender, S>D, 41 lb TWG ASSESSMENT/PLAN: 1. Encounter for supervision of high risk in third trimester, antepartum ([facility]) - ICD9: V23.9, ICD10: O09.93 (primary diagnosis) - Continue PNV and LDA - Recommend compression stockings for swelling to bilateral LE - Asking for dermatology referral for acne. Reviewed acne may improve after delivery. 2. 32 weeks gestation of ([facility]) - ICD9: V22.2, ICD10: Z3A.32 3. Anemia during in third trimester ([facility]) - ICD9: 648.23, ICD10: O99.013 - Started iron transfusions - Recheck CBC next visit 4. macrosomia during in third trimester, single or unspecified fetus (HCC) - ICD9: 656.63, ICD10: O36.63X0 - The EFW is 2259 g, at the 91%. AC is at the 98%. - Consider 36 week growth. Briefly discussed primary c/s vs vaginal delivery. Rediscuss closer to delivery date. PTL precautions and kick counts reviewed. RTO in 2 weeks or sooner as needed. Shira Gloria APRN.BOOKING SUPERVISOR [facility] 02-16-2025 Note Indication Evaluation of growth Impression - Single, live, intrauterine . - presentation is cephalic. - The biometry is consistent with the assigned gestational dating. - The EFW is 2259 g, at the 91%. AC is at the 98%. - Amniotic fluid volume is normal amount with an MVP of 6.1 cm and CARLOS of 20.8 cm. - The placenta is anterior, fundal. - No malformations visualized on a limited survey as detailed below. Recommendations Additional follow-up as clinically indicated. Maternal Assessment Height 163 cm Height (ft) 5 ft Height (in) 4 in Physical Exam Initial weight (lb) 141 lb Initial BMI 24.20 kg/m Maternal assessment other: 1 Para 0 REMOTE READ Method Transabdominal ultrasound examination [place] . Number of fetuses: 1 Dating LMP on: 07/08/2024 Cycle: LMP date uncertain GA by LMP 31 w + 6 d FELIPE by LMP: 04/14/2025 GA by prior assessment 31 w + 6 d FELIPE by prior assessment: 04/14/2025 Ultrasound examination on: 02/16/2025 GA by U/S based upon: AC, BPD, Femur, HC GA by U/S 33 w + 5 d FELIPE by U/S: 04/01/2025 Assigned: based on stated FELIPE, selected on 02/16/2025 Assigned GA 31 w + 6 d Assigned FELIPE: 04/14/2025 General Evaluation Cardiac activity present. FHR 148 bpm. movements: present. Presentation: cephalic Placenta: Placental site: anterior, fundal Umbilical cord: Cord vessels: 3 vessel cord Amniotic fluid: Amount of AF: normal amount. MVP 6.1 cm. CARLOS 20.8 cm. Q1 5.5 cm, Q2 6.1 cm, Q3 5.6 cm, Q4 3.6 cm Growth Overview Exam date GA BPD (mm) HC (mm) AC (mm) FL (mm) HL (mm) EFW (g) 11/28/2024 20w 3d 48 53% 175.4 38% 158.3 62% 33.1 62% 32.9 75% 362 52% 02/16/2025 31w 6d 86.4 98% 312.4 86% 306.4 98% 60.5 47% 2259 91% Biometry Standard BPD 86.4 mm 34w 6d 98% Hadlock OFD 109.1 mm 32w 5d 75% Nicolaides HC 312.4 mm 34w 0d 86% [place] AC 306.4 mm 34w 4d 98% Hadlock Femur 60.5 mm 31w 2d 47% [place] EFW 2,259 g 33w 3d 91% Hadlock EFW (lb) 5 lb EFW (oz) 0 oz EFW by: Hadlock (HC-AC-FL) Extended Print Room Worker 8.0 mm Extremities / Bony Struc FL / HC 0.19 Other Structures FHR 148 bpm Anatomy Lateral ventricles: normal Cavum septi pellucidi: normal Cerebellum: normal Cisterna magna: normal 4-chamber view: normal RVOT view: normal LVOT view: normal 3-vessel view: normal Heart / Thorax Situs: situs solitus (normal) Diaphragm: normal Stomach: normal Kidneys: normal Bladder: normal sex: female Wants to know sex: yes Performed By: Nano Whelan RDMS, RVT Read By: Yessy Orr M.D. [facility] 02-08-2025 Note HNO ID: [id number] Author: SHIRA GLORIA APRN.BOOKING SUPERVISOR Service: ? Author Type: Nurse Practitioner Type: Procedures Filed: 02/08/2025 12:11 Note Text: NST SUMMARY PROVIDER ASSESSMENT AND INTERPRETATION Indications for NST: Other: Decreased FM Baseline: 150 Variability: Moderate Accelerations: Present 10 X 10 Decelerations: None Interpretation: Reactive SIGNATURE: Shira Gloria APRN.CNP [facility] 02-08-2025 Procedure note NST SUMMARY PROVIDER ASSESSMENT AND INTERPRETATION Indications for NST: Other: Decreased FM Baseline: 150 Variability: Moderate Accelerations: Present 10 X 10 Decelerations: None Interpretation: Reactive SIGNATURE: Shira Gloria APRN.CNP [facility] 02-08-2025 Procedure note NST SUMMARY PROVIDER ASSESSMENT AND INTERPRETATION Indications for NST: Other: Decreased FM Baseline: 150 Variability: Moderate Accelerations: Present 10 X 10 Decelerations: None Interpretation: Reactive SIGNATURE: Shira Gloria APRN.CNP documented in this encounter [facility] 02-08-2025 Note HNO ID: [id number] Author: SHIRA GLORIA APRN.CNP Service: ? Author Type: Nurse Practitioner Type: Progress Notes Filed: 02/08/2025 12:11 Note Text: EH - S: Rhonda is a 19 year old female who presents at 30w5d for a routine visit. Feeling movement. Denies headache, visual changes, chest pain, shortness of breath, vaginal bleeding, leakage of fluid, or dysuria. Was in OB ED on 01/29 for chest pressure with abdominal pain. Was given GI cocktail, which improved pain. Having some itching and discharge. O: See flow sheet Gen: No apparent distress Abd: Gravid, nontender, S=D, 38 lb TWG ASSESSMENT/PLAN: 1. Supervision of high risk in third trimester ([facility]) - ICD9: V23.9, ICD10: O09.93 (primary diagnosis) - Continue PNV and LDA 2. 30 weeks gestation of ([facility]) - ICD9: V22.2, ICD10: Z3A.30 3. Anemia during in third trimester ([facility]) - ICD9: 648.23, ICD10: O99.013 - Planning IV iron transfusions 4. Decreased movements in third trimester, single or unspecified fetus ([facility]) - ICD9: 655.73, ICD10: O36.8130 - Reports only feeling 2 movements per day - NST reactive for 30 week gestation 5. Heartburn during in third trimester ([facility]) - ICD9: 646.83, 787.1, ICD10: O26.893, R12 - Pepcid and Mylanta not effective - OMEPRAZOLE 20 MG CAPSULE,DELAYED RELEASE Vaginal itching - ICD9: 698.1, ICD10: N89.8 Vaginal discharge - ICD9: 623.5, ICD10: N89.8 - KANG/TRICHOMONAS NAAT - BACTERIAL VAGINOSIS NAAT PTL precautions and kick counts reviewed. RTO in 2 weeks or sooner as needed. Shira Gloria APRN.[facility] 02-08-2025 History of Presen t illness Narrative EH - S: Rhonda is a 19 year old female who presents at 30w5d for a routine visit. Feeling movement. Denies headache, visual changes, chest pain, shortness of breath, vaginal bleeding, leakage of fluid, or dysuria. Was in OB ED on 01/29 for chest pressure with abdominal pain. Was given GI cocktail, which improved pain. Having some itching and discharge. O: See flow sheet Gen: No apparent distress Abd: Gravid, nontender, S=D, 38 lb TWG ASSESSMENT/PLAN: 1. Supervision of high risk in third trimester ([facility]) - ICD9: V23.9, ICD10: O09.93 (primary diagnosis) - Continue PNV and LDA 2. 30 weeks gestation of ([facility]) - ICD9: V22.2, ICD10: Z3A.30 3. Anemia during in third trimester ([facility]) - ICD9: 648.23, ICD10: O99.013 - Planning IV iron transfusions 4. Decreased movements in third trimester, single or unspecified fetus ([facility]) - ICD9: 655.73, ICD10: O36.8130 - Reports only feeling 2 movements per day - NST reactive for 30 week gestation 5. Heartburn during in third trimester ([facility]) - ICD9: 646.83, 787.1, ICD10: O26.893, R12 - Pepcid and Mylanta not effective - OMEPRAZOLE 20 MG CAPSULE,DELAYED RELEASE Vaginal itching - ICD9: 698.1, ICD10: N89.8 Vaginal discharge - ICD9: 623.5, ICD10: N89.8 - KANG/TRICHOMONAS NAAT - BACTERIAL VAGINOSIS NAAT PTL precautions and kick counts reviewed. RTO in 2 weeks or sooner as needed. Shira Gloria APRN.CNP documented in this encounter [facility] 02-08-2025 Instructions Brinda Alexander LPN - 02/08/2025 8:58 AM EDT SEQUENTIAL SCREENINGS The [facility] offers sequential screenings for women who are interested in screenings for chromosomal abnormalities and certain defects during a . The sequential screen combines ultrasound and blood tests to determine the risk of chromosomal abnormalities, including Down's Syndrome (Trisomy 21) and Trisomy 18, as well as open neural tube defects including spina bifida. Ultrasound examination is performed between 11 weeks and 13 weeks gestational age. Blood tests are drawn after the ultrasound and again later in the between 15 and 21 weeks gestational age. Please let your physician know if you are interested in this testing. It will require an appointment with our platform power technician. This is not an ultrasound performed by a physician in our office during a routine visit. SIGNS AND SYMPTOMS OF LABOR 1. Contractions every 10 minutes or more often 2. Clear, pink, or brownish fluid (water) leaking from vagina 3. Feeling that baby is pushing down, pressure 4. Low, dull backache 5. Cramps that feel like a period 6. Cramps with or without diarrhea If you notice any of the above symptoms, contact our office at [phone] and ask to speak with a nurse. After hours, you can call doctors registry at [phone] OR call [facility] at [phone] and ask to have the doctor dehydration plant operator paged. If you consider this an emergency, dial [phone]- or go to your nearest emergency department. NEED HELP? Are you dealing with a violent or abusive relationship? Are you a victim of rape or sexual assult? Call [facility] ([place]) 24 hour Crisis Hotline: 668.666.7022 or 323-741-0859. MANUAL Your Guide to a Healthy manual is now on-line. Visit [email or web address] to download your free copy documented in this encounter [facility] 02-06-2025 Miscellaneous Notes Addended by: YESSY PEREZ on: 02/06/2025 03:19 PM Modules accepted: Orders documented in this encounter [facility] 02-06-2025 Note Addended by: YESSY ANTONIO on: 02/06/2025 03:19 PM Modules accepted: Orders [facility] 02-03-2025 Telephone encounter Note Scheduled with patient Start email sent [facility] Work Phone: 02-03-2025 Miscellaneous Notes Scheduled with patient Start email sent Treatment plan for Jarod houston and JOHN approved. Ready to schedule. documented in this encounter [facility] 02-03-2025 Telephone encounter Note Treatment plan for Jarod houston and JOHN approved. Ready to schedule. [facility] 01-31-2025 Note HNO ID: [id number] Author: BECKY REES PA-C Service: ? Author Type: Physician Study Assistant Type: Progress Notes Filed: 01/31/2025 15:37 Note Text: [facility] MEDICINE DEPARTMENT OF BLOOD MANAGEMENT ORDERS ONLY ENCOUNTER PATIENT NAME: Rhnoda Cohen DATE OF SERVICE: January 31, 2025 REFERRING PROVIDER: Vera Hatch APRN.CNM Subjective Patient referred to Blood Management for evaluation and treatment of anemia in and iron deficiency anemia. Patient's relevant history, recent diagnostic data, and treatment plan as entered by Sarwat Gray RN were reviewed. Medical/Surgical History: PAST MEDICAL HISTORY Diagnosis Date Anxiety and depression History of IBS PAST SURGICAL HISTORY Procedure Laterality Date [facility] 07/06/2023 Other significant Medical/Surgical history: - None CURRENT MEDICATIONS: Current Outpatient Medications Medication Instructions aspirin, enteric coated (ECOTRIN LOW STRENGTH) 81 mg, ORAL, DAILY cyclobenzaprine (FLEXERIL) 5 mg, ORAL, 3 TIMES DAILY NEEDED docusate sodium (COLACE) 100 mg, ORAL, 2 TIMES DAILY famotidine (PEPCID) 20 mg, ORAL, 2 TIMES DAILY vit no.124/iron/folic ( VITAMIN ORAL) 2 pieces, DAILY Current medications that may affect iron absorption and/or blood loss: - Antacids (H2 receptor blockers, PPI) - Aspirin Objective Data Reviewed: WBC (k/uL) Date Value 01/29/2025 14.65 (H) RBC (m/uL) Date Value 01/29/2025 3.70 (L) Hemoglobin (g/dL) Date Value 01/29/2025 9.3 (L) Hematocrit (%) Date Value 01/29/2025 29.8 (L) MCV (fL) Date Value 01/29/2025 80.5 MCH (pg) Date Value 01/29/2025 25.1 (L) MCHC (g/dL) Date Value 01/29/2025 31.2 RDW-CV (%) Date Value 01/29/2025 13.5 Platelet Count (k/uL) Date Value 01/29/2025 296 MPV (fL) Date Value 01/29/2025 10.3 Iron Date Value Ref Range Status 01/24/2025 20 (L) 41 - 186 ug/dL Final TIBC Date Value Ref Range Status 01/24/2025 443 (H) 232 - 386 ug/dL Final Ferritin Date Value Ref Range Status 01/24/2025 7.1 (L) 14.7 - 205.1 ng/mL Final Folate Date Value Ref Range Status 11/01/2021 12.6 >4.7 ng/mL Final Vitamin B12 Date Value Ref Range Status 01/15/2024 441 232 - 1,245 pg/mL Final Transferrin Saturation Date Value Ref Range Status 01/24/2025 4.5 (L) 15.0 - 57.0 % Final Assessment AND Plan Maternal iron deficiency anemia complicating , third trimester (HCC) - Patient referred to blood management for anemia in and iron deficiency anemia - Previously prescribed pre-vaughn vitamin including iron supplement PO daily - Patient with treatment failure from oral iron supplementation and ongoing iron deficiency anemia noted on most recent labs from 01/24/2025: - Ferritin 7.1, Iron 20, TIBC 443, TSAT 4.5%, and Hgb 9.3 g/dL - Per Ganzoni equation, 761 mg iron deficient utilizing pre- weight (64kg) and goal Hgb 11 g/dL. - Therapy plan for Venofer (iron sucrose) 200 mg IV infusion x 4 doses was reviewed and signed. - Recommend ongoing monitoring of iron deficiency anemia by referring provider to ensure adequate response to IV iron supplementation. Portions of this note were copied from prior encounter from Sarwat Gray RN on 01/31/25. The patient's medications, allergies, past medical/surgical hx, and family hx have all been reviewed and updated as appropriate. The interval history and assessment/plan content have been modified and are specific to today's (January 31, 2025) purpose for the visit. Becky Rees PA-C Department of Blood Management January 31, 2025 CC: Referring Provider: Vera Hatch APRN.CNM [facility] 01-31-2025 History of Presen t illness Narrative [facility] MED[facility] DEPARTMENT OF BLOOD MANAGEMENT ORDERS ONLY ENCOUNTER PATIENT NAME: Rhonda Cohen DATE OF SERVICE: January 31, 2025 REFERRING PROVIDER: Vera Hatch APRN.CNM Subjective Patient referred to Blood Management for evaluation and treatment of anemia in and iron deficiency anemia. Patient's relevant history, recent diagnostic data, and treatment plan as entered by Sarwat Gray RN were reviewed. Medical/Surgical History: PAST MEDICAL HISTORY Diagnosis Date Anxiety and depression History of IBS PAST SURGICAL HISTORY Procedure Laterality Date COLONOSCOPY SCREENING EGD W/O [facility] SPEC VARICIES INJ 07/06/2023 Other significant Medical/Surgical history: - None CURRENT MEDICATIONS: Current Outpatient Medications Medication Instructions aspirin, enteric coated (ECOTRIN LOW STRENGTH) 81 mg, ORAL, DAILY cyclobenzaprine (FLEXERIL) 5 mg, ORAL, 3 TIMES DAILY NEEDED docusate sodium (COLACE) 100 mg, ORAL, 2 TIMES DAILY famotidine (PEPCID) 20 mg, ORAL, 2 TIMES DAILY vit no.124/iron/folic ( VITAMIN ORAL) 2 pieces, DAILY Current medications that may affect iron absorption and/or blood loss: - Antacids (H2 receptor blockers, PPI) - Aspirin Objective Data Reviewed: WBC (k/uL) Date Value 01/29/2025 14.65 (H) RBC (m/uL) Date Value 01/29/2025 3.70 (L) Hemoglobin (g/dL) Date Value 01/29/2025 9.3 (L) Hematocrit (%) Date Value 01/29/2025 29.8 (L) MCV (fL) Date Value 01/29/2025 80.5 MCH (pg) Date Value 01/29/2025 25.1 (L) MCHC (g/dL) Date Value 01/29/2025 31.2 RDW-CV (%) Date Value 01/29/2025 13.5 Platelet Count (k/uL) Date Value 01/29/2025 296 MPV (fL) Date Value 01/29/2025 10.3 Iron Date Value Ref Range Status 01/24/2025 20 (L) 41 - 186 ug/dL Final TIBC Date Value Ref Range Status 01/24/2025 443 (H) 232 - 386 ug/dL Final Ferritin Date Value Ref Range Status 01/24/2025 7.1 (L) 14.7 - 205.1 ng/mL Final Folate Date Value Ref Range Status 11/01/2021 12.6 >4.7 ng/mL Final Vitamin B12 Date Value Ref Range Status 01/15/2024 441 232 - 1,245 pg/mL Final Transferrin Saturation Date Value Ref Range Status 01/24/2025 4.5 (L) 15.0 - 57.0 % Final Assessment & Plan Maternal iron deficiency anemia complicating , third trimester (HCC) - Patient referred to blood management for anemia in and iron deficiency anemia - Previously prescribed pre- vitamin including iron supplement PO daily - Patient with treatment failure from oral iron supplementation and ongoing iron deficiency anemia noted on most recent labs from 01/24/2025: - Ferritin 7.1, Iron 20, TIBC 443, TSAT 4.5%, and Hgb 9.3 g/dL - Per Ganzoni equation, 761 mg iron deficient utilizing pre- weight (64kg) and goal Hgb 11 g/dL. - Therapy plan for Venofer (iron sucrose) 200 mg IV infusion x 4 doses was reviewed and signed. - Recommend ongoing monitoring of iron deficiency anemia by referring provider to ensure adequate response to IV iron supplementation. Portions of this note were copied from prior encounter from Sarwat Gray RN on 01/31/25. The patient's medications, allergies, past medical/surgical hx, and family hx have all been reviewed and updated as appropriate. The interval history and assessment/plan content have been modified and are specific to today's (January 31, 2025) purpose for the visit. Becky Rees PA-C Department of Blood Management January 31, 2025 CC: Referring Provider: Vera Hatch APRN.CNM documented in this encounter [facility] 01-31-2025 Note HNO ID: [id number] Author: SARWAT SNOW, UMAIR Service: ? Author Type: Registered Nurse Type: Progress Notes Filed: 01/31/2025 14:54 Note Text: Patient referred to Blood Management for evaluation and treatment of pre-surgical anemia and/or iron deficiency. Non-surgical: anemia in Date of surgery: NA Medical/Surgical History: PAST MEDICAL HISTORY Diagnosis Date Anxiety and depression History of IBS PAST SURGICAL HISTORY Procedure Laterality Date COLONOSCOPY SCREENING EGD W/O [facility] SPEC VARICIES INJ 07/06/2023 Other significant Medical/Surgical history: - None Current Outpatient Medications Medication Sig famotidine (PEPCID) 20 mg tablet Take 1 tablet by mouth two times a day. cyclobenzaprine (FLEXERIL) 5 mg tablet Take 1 tablet by mouth three times a day as needed. aspirin, enteric coated (ECOTRIN LOW STRENGTH) 81 mg EC tablet Take 1 tablet by mouth once daily. docusate sodium (COLACE) 100 mg capsule Take 1 capsule by mouth two times a day. vit no.124/iron/folic ( VITAMIN ORAL) Take 2 Pieces by mouth once daily. No current facility-administered medications for this visit. Current medications that may affect iron absorption and/or blood loss: - Antacids (H2 receptor blockers, PPI) and - Aspirin Baseline laboratory values: WBC (k/uL) Date Value 01/29/2025 14.65 (H) RBC (m/uL) Date Value 01/29/2025 3.70 (L) Hemoglobin (g/dL) Date Value 01/29/2025 9.3 (L) Hematocrit (%) Date Value 01/29/2025 29.8 (L) MCV (fL) Date Value 01/29/2025 80.5 MCH (pg) Date Value 01/29/2025 25.1 (L) MCHC (g/dL) Date Value 01/29/2025 31.2 RDW-CV (%) Date Value 01/29/2025 13.5 Platelet Count (k/uL) Date Value 01/29/2025 296 MPV (fL) Date Value 01/29/2025 10.3 Iron Date Value Ref Range Status 01/24/2025 20 (L) 41 - 186 ug/dL Final TIBC Date Value Ref Range Status 01/24/2025 443 (H) 232 - 386 ug/dL Final Ferritin Date Value Ref Range Status 01/24/2025 7.1 (L) 14.7 - 205.1 ng/mL Final Folate Date Value Ref Range Status 11/01/2021 12.6 >4.7 ng/mL Final Vitamin B12 Date Value Ref Range Status 01/15/2024 441 232 - 1,245 pg/mL Final Transferrin Saturation Date Value Ref Range Status 01/24/2025 4.5 (L) 15.0 - 57.0 % Final Assess for the need to augment a patient?s natural red blood cell production: - Blood transfusion avoidance - Iron depletion Recommendations according to Blood Management patient care guidelines: - Iron Sucrose 200 mg, IV infusion, dose(s) 4 Total iron deficit using Ganzoni equation = 761 mg (wt 64 kg/goal hgb 11 g/dL) Clinical information is sent to a provider for review and evaluation for treatment. [facility] 01-31-2025 History of Presen t illness Narrative Patient referred to Blood Management for evaluation and treatment of pre-surgical anemia and/or iron deficiency. Non-surgical: anemia in Date of surgery: NA Medical/Surgical History: PAST MEDICAL HISTORY Diagnosis Date Anxiety and depression History of IBS PAST SURGICAL HISTORY Procedure Laterality Date COLONOSCOPY SCREENING EGD W/O [facility] SPEC VARICIES INJ 07/06/2023 Other significant Medical/Surgical history: - None Current Outpatient Medications Medication Sig famotidine (PEPCID) 20 mg tablet Take 1 tablet by mouth two times a day. cyclobenzaprine (FLEXERIL) 5 mg tablet Take 1 tablet by mouth three times a day as needed. aspirin, enteric coated (ECOTRIN LOW STRENGTH) 81 mg EC tablet Take 1 tablet by mouth once daily. docusate sodium (COLACE) 100 mg capsule Take 1 capsule by mouth two times a day. vit no.124/iron/folic ( VITAMIN ORAL) Take 2 Pieces by mouth once daily. No current facility-administered medications for this visit. Current medications that may affect iron absorption and/or blood loss: - Antacids (H2 receptor blockers, PPI) and - Aspirin Baseline laboratory values: WBC (k/uL) Date Value 01/29/2025 14.65 (H) RBC (m/uL) Date Value 01/29/2025 3.70 (L) Hemoglobin (g/dL) Date Value 01/29/2025 9.3 (L) Hematocrit (%) Date Value 01/29/2025 29.8 (L) MCV (fL) Date Value 01/29/2025 80.5 MCH (pg) Date Value 01/29/2025 25.1 (L) MCHC (g/dL) Date Value 01/29/2025 31.2 RDW-CV (%) Date Value 01/29/2025 13.5 Platelet Count (k/uL) Date Value 01/29/2025 296 MPV (fL) Date Value 01/29/2025 10.3 Iron Date Value Ref Range Status 01/24/2025 20 (L) 41 - 186 ug/dL Final TIBC Date Value Ref Range Status 01/24/2025 443 (H) 232 - 386 ug/dL Final Ferritin Date Value Ref Range Status 01/24/2025 7.1 (L) 14.7 - 205.1 ng/mL Final Folate Date Value Ref Range Status 11/01/2021 12.6 >4.7 ng/mL Final Vitamin B12 Date Value Ref Range Status 01/15/2024 441 232 - 1,245 pg/mL Final Transferrin Saturation Date Value Ref Range Status 01/24/2025 4.5 (L) 15.0 - 57.0 % Final Assess for the need to augment a patient s natural red blood cell production: - Blood transfusion avoidance - Iron depletion Recommendations according to Blood Management patient care guidelines: - Iron Sucrose 200 mg, IV infusion, dose(s) 4 Total iron deficit using Ganzoni equation = 761 mg (wt 64 kg/goal hgb 11 g/dL) Clinical information is sent to a provider for review and evaluation for treatment. documented in this encounter [facility] 01-31-2025 Telephone encounter Note Spoke to ANIL. Pt is advised to stop taking pepcid if it is making her abdominal pain worse and begin taking Mylanta or Maalox as advised on box to see if it helps. Advised Pt to stay hydrated by drinking liquid IV or gatorade if water does not sound appealing. Discussed Unisom, B6, & clifford for nausea. Discussed importance of Increase iron rich foods in diet (i.e. Lean red reds, green leafy vegetables, beans/lentils or dried fruits) & starting an iron supplement-Ferrous Sulfate 325mg by mouth once every other day/Taking Iron with source of Vitamin C and to avoid taking 30 minutes before or after eating to increase absorption as advised by Vera Hatch APRN, CNM on 01/24/25 d/t anemia labs. Informed Pt that Dr. Archer reviewed her lab results, EKG, chest x-ray lab, and reports from [facility] visit on 01/29/25 and feels that she should continue to monitor and if abdominal pain does not improve/worsens with above measures to return to [facility] L&D. Advised to use heating pad to back/hips if needed to help sooth pain. Also advised Pt to go to L&D if LOF, decreased movement, vaginal bleeding, chest pain/shortness of breath.Pt denies questions at this time and voiced understanding of above advise.Negrita Colby RN [facility] 01-31-2025 Miscellaneous Notes Spoke to JG. Pt is advised to stop taking pepcid if it is making her abdominal pain worse and begin taking Mylanta or Maalox as advised on box to see if it helps. Advised Pt to stay hydrated by drinking liquid IV or gatorade if water does not sound appealing. Discussed Unisom, B6, & clifford for nausea. Discussed importance of Increase iron rich foods in diet (i.e. Lean red reds, green leafy vegetables, beans/lentils or dried fruits) & starting an iron supplement-Ferrous Sulfate 325mg by mouth once every other day/Taking Iron with source of Vitamin C and to avoid taking 30 minutes before or after eating to increase absorption as advised by Vera Hatch APRN, CNM on 01/24/25 d/t anemia labs. Informed Pt that Dr. Archer reviewed her lab results, EKG, chest x-ray lab, and reports from [facility] visit on 01/29/25 and feels that she should continue to monitor and if abdominal pain does not improve/worsens with above measures to return to [facility] L&D. Advised to use heating pad to back/hips if needed to help sooth pain. Also advised Pt to go to L&D if LOF, decreased movement, vaginal bleeding, chest pain/shortness of breath.Pt denies questions at this time and voiced understanding of above advise.Negrita Colby RN 29w4d Pt's mother calls, stating on Thursday Pt called o/c provider and was advised to go to [facility] L&D for c/o chest pain/abdominal pain. Chest xray-normal, EKG-sinus tachycardia, Urine test completed. She states Pt was sent home-Dr never went over results and was sent home with no answers and was sent home with pepcid & states she is still experiencing abdominal pain. Pt heard in background; therefore, this RN asked to speak to patient directly to get detailed information. Pt states her abdominal pain is a lot worse than on Thursday. States pain is so bad she has vomited. Pain is located in the middle band of abdomen and moves up and down in front of entire abdomen. Pt describes as a squeezing and tightness and pretty constant. Pt states she gets maybe a 5 minute break and it comes back for a couple of hours. Nothing makes it better. When it hurts, cannot catch her breath/cannot talk. Has tried hot shower, states tylenol gives her abdominal cramps and diarrhea. Pain at worse 8-8.5/10. Denies LOF, vaginal bleeding, chest pain, dysuria. Active FM. When asked if she is staying hydrated, Pt states Doing my best. Pepcid is not helping-took last at 3am. Pt states actually made things worse-made abdominal pain worse. Pt is not taking iron supplements as advised on 01/24/25 by LEONARDO. Advised Pt to drink gatorade or liquid IV to stay hydrated, to rest how she is most comfortable, and that this RN would sent message to o/c provider to see what is advised. Advised Pt that if before we call her back, she experiencing worsening abdominal pain or she began to experience vaginal bleeding to go to ER. Pt voiced understanding. Please see labs completed on 01/29/25 & advise. No appointments available today. Negrita Colby, UMAIR documented in this encounter [facility] 01-31-2025 Telephone encounter Note 29w4d Pt's mother calls, stating on Thursday Pt called o/c provider and was advised to go to [facility] L&D for c/o chest pain/abdominal pain. Chest xray-normal, EKG-sinus tachycardia, Urine test completed. She states Pt was sent home-Dr never went over results and was sent home with no answers and was sent home with pepcid & states she is still experiencing abdominal pain. Pt heard in background; therefore, this RN asked to speak to patient directly to get detailed information. Pt states her abdominal pain is a lot worse than on Thursday. States pain is so bad she has vomited. Pain is located in the middle band of abdomen and moves up and down in front of entire abdomen. Pt describes as a squeezing and tightness and pretty constant. Pt states she gets maybe a 5 minute break and it comes back for a couple of hours. Nothing makes it better. When it hurts, cannot catch her breath/cannot talk. Has tried hot shower, states tylenol gives her abdominal cramps and diarrhea. Pain at worse 8-8.5/10. Denies LOF, vaginal bleeding, chest pain, dysuria. Active FM. When asked if she is staying hydrated, Pt states Doing my best. Pepcid is not helping-took last at 3am. Pt states actually made things worse-made abdominal pain worse. Pt is not taking iron supplements as advised on 01/24/25 by LEONARDO. Advised Pt to drink gatorade or liquid IV to stay hydrated, to rest how she is most comfortable, and that this RN would sent message to o/c provider to see what is advised. Advised Pt that if before we call her back, she experiencing worsening abdominal pain or she began to experience vaginal bleeding to go to ER. Pt voiced understanding. Please see labs completed on 01/29/25 & advise. No appointments available today. Negrita Colby RN [facility] 01-29-2025 Note HNO ID: [id number] Author: SHIRA BRASHER DO Service: Obstetrics Author Type: Resident Type: Progress Notes Filed: 01/29/2025 19:20 Note Text: Reevaluated patient at bedside. She reports that her epigastric pain has improved with her GI cocktail. Her SOB has also improved but is still present. Patient able to have normal conversation without signs of conversational dyspnea. O2 sat 98% on RA. Most recent HR 113. Normotensive. BLE without swelling, redness, warmth or tenderness. Negative brooklyn's sign bilaterally. No personal or family history of blood clots. Patient had an extensive workup, please see previous documentation from Dr. Holley. Low suspicion for PE at this time given above physical exam findings and normal ECG. Patient reports that she has been taking 40mg Pepcid intermittently when her epigastric discomfort worsens. She is agreeable to start 20mg Pepcid BID to improve her sxs. She has office follow up on 02/08. Discussed possibly adding Omeprazole at next visit should symptoms persist. Strict return precautions provided. Discussed patient with Dr. Wells. BP: 108/70 Temp: 36.4 ?C (97.5 ?F) Pulse: 116 Resp: 22 O2 Therapy: Room Air SpO2: 98 % WBC (k/uL) Date Value 01/29/2025 14.65 (H) RBC (m/uL) Date Value 01/29/2025 3.70 (L) Hemoglobin (g/dL) Date Value 01/29/2025 9.3 (L) Hematocrit (%) Date Value 01/29/2025 29.8 (L) MCV (fL) Date Value 01/29/2025 80.5 MCH (pg) Date Value 01/29/2025 25.1 (L) MCHC (g/dL) Date Value 01/29/2025 31.2 RDW-CV (%) Date Value 01/29/2025 13.5 Platelet Count (k/uL) Date Value 01/29/2025 296 MPV (fL) Date Value 01/29/2025 10.3 Glucose (mg/dL) Date Value 01/29/2025 101 (H) BUN (mg/dL) Date Value 01/29/2025 8 Creatinine (mg/dL) Date Value 01/29/2025 0.41 (L) Sodium (mmol/L) Date Value 01/29/2025 136 Potassium (mmol/L) Date Value 01/29/2025 3.6 (L) Chloride (mmol/L) Date Value 01/29/2025 105 CO2 (mmol/L) Date Value 01/29/2025 19 (L) Protein, Total (g/dL) Date Value 01/29/2025 6.2 (L) Albumin (g/dL) Date Value 01/29/2025 3.5 (L) Calcium, Total (mg/dL) Date Value 01/29/2025 8.5 Alkaline Phosphatase (U/L) Date Value 01/29/2025 112 Bilirubin, Total (mg/dL) Date Value 01/29/2025 <0.2 (L) AST (U/L) Date Value 01/29/2025 14 ALT (U/L) Date Value 01/29/2025 10 Hep C Antibody IA (no units) Date Value 10/03/2024 Negative URINALYSIS Specific [place], Ur Date Value Ref Range Status 01/29/2025 1.014 1.005 - 1.030 Final Glucose, Urine Date Value Ref Range Status 01/29/2025 Negative Trace, Negative Final Bilirubin, Urine Date Value Ref Range Status 01/29/2025 Negative Negative Final Ketones, Urine Date Value Ref Range Status 01/29/2025 1+ (A) Negative, Trace Final Hemoglobin/Blood,Ur Date Value Ref Range Status 01/29/2025 Negative Negative, Trace Final Protein, Urine Date Value Ref Range Status 01/29/2025 Negative Trace, Negative Final WBC, Urine Date Value Ref Range Status 01/29/2025 0-5 /HPF 0-5 /HPF Final Shira Brasher DO 7:20 PM [facility] 01-29-2025 Note HNO ID: [id number] Author: YANICK HOLLEY DO Service: Obstetrics Author Type: Resident Type: Progress Notes Filed: 01/29/2025 16:59 Note Text: Labs without evidence of renal, liver, gallbladder, pancreas dysfunction. Troponin, BNP, fibrinogen normal. UA without evidence of infection or blood. Patient still feels pain especially with movement on the right side and in the epigastric region. Chest x-ray negative for acute processes. Pain management limited: allergic to tylenol, declines anything that makes her feel tired. Has previously had flexeril which knocked her out and did not help her round ligament pain. Cannot offer flexeril, benadryl, gabapentin, or narcotics as she does not want to feel sleepy. Will give viscous lidocaine with Maalox. If pain not improved, will get CTPE to rule out heart or lung abnormalities contributing to shortness of breath. At this time, patient's shortness of breath appears improved and she has shallow breathing only occasionally and with worsened pain. Heart is tachycardic without murmurs and lungs are clear to auscultation. Unknown cause of pain at this time. Aim to rule out acute emergent processes and discharge with pain management as patient will tolerate. Can consider discharging with Flexeril, gabapentin, or benadryl as patient desires for symptom management. Yanick Holley DO [facility] 01-29-2025 Note HNO ID: [id number] Author: KOURTNEY RODRIGUEZ MD Service: Obstetrics Author Type: Resident Type: Progress Notes Filed: 01/29/2025 16:11 Note Text: Attestation signed by Kourtney Rodriguez MD at 01/29/2025 4:11 PM Attending Note I evaluated the patient and personally participated in the villalobos components. I agree with the resident's findings and plan as documented and have discussed the case and management of the patient's care with the resident. Patient with acute onset not feeling well over last 24 hours. No known sick contacts. Start with laboratory evaluation and chest x-ray but will consider CT-PE given increased work of breathing and chest pain. Signature: Kourtney Rodriguez MD Date: 01/29/2025 Time: 4:09 PM OBSTETRICS OB ED PROGRESS NOTE SERVICE DATE: January 29, 2025 SERVICE TIME: 1:36 PM Subjective Patient's stated reason for arrival: decreased movement, pain on right side into shoulder and back, chest pressure CHIEF COMPLAINT: abdominal pain HISTORY OF THE PRESENT ILLNESS: The patient is a 19 year old female, , who is at 29w2d with an FELIPE of 04/14/2025, by Last Menstrual Period dating method. Patient is here complaining of abdominal pain. It started abruptly last night and has continually worsened. It is now associated with chest pressure and shortness of breath, she feels like she can't take a deep breath. The pain is all along her right side and is worse with movement and lying with her legs out straight, is better with her legs bent up. With the pain she has not felt the baby move normally but is reassured hearing the movements with the baby on the monitor. She has nausea that is worse with eating. She has increased clear vaginal discharge recently. She has no fever, chills, constipation, diarrhea, dysuria, vaginal bleeding. PAST MEDICAL HISTORY Diagnosis Date Anxiety and depression History of IBS PAST SURGICAL HISTORY Procedure Laterality Date COLONOSCOPY SCREENING EGD W/O [facility] SPEC VARICIES INJ 07/06/2023 FAMILY HISTORY Problem Relation Age of Onset Fibromyalgia Mother Cervical Cancer Mother other (diverticulitis) Mother Kidney Disease Father other (Gastroparesis) Sister Kidney stones Brother No Known Problems Brother No Known Problems Brother Bipolar disorder Maternal Grandmother other (endometriosis) Maternal Grandmother Heart Attack Maternal Grandfather other (MSA-muscle system atrophy) Maternal Grandfather Neuropathy Paternal Grandmother Fibromyalgia Paternal Grandmother Depression Paternal Grandmother Hypertension Paternal Grandmother Heart Attack Paternal Grandfather Several Diabetes Paternal Grandfather Type 2 Hypertension Paternal Grandfather Kidney stones Paternal Grandfather other (lupus) Maternal Aunt other (endometriosis) Maternal Aunt OB History Gravida1 Para0 Term0 Preterm0 AB0 Living0 SAB0 IAB0 Ectopic0 Multiple0 Live Births0 REVIEW OF SYSTEMS: The remainder of the ROS is negative. Objective LAST VITALS: Pulse: 112 BP: 104/65 Resp: 22 Temp: 36.4 ?C (97.5 ?F) SpO2: 100 % Height: 162.6 cm (5' 4) Weight: 78 kg (172 lb) BMI: 29.52 SENSITIVE EXAMINATION CONSENT: Participation of a fellow, resident, medical student, or advanced practice provider student in performing the sensitive examination was discussed with the patient or authorized market survey representative. The patient or authorized market survey representative has agreed to proceed with the sensitive examination. PHYSICAL EXAM: General: WD, WN, uncomfortable, taking shallow breaths Heart: RR, warm and well perfused Lungs: shallow short breaths without audible wheezing Abdomen: soft, no worsened tenderness to palpation, no distention, rebound, guarding Uterus: soft, NT SSE: thin physiologic white discharge present, cervix visually closed thick and long gross rupture negative, Fern: neg ; Nitrazine: neg (pH less than 7) Fern Reference Range Negative for amniotic fluid Nitrazine Reference Range Normal vaginal pH is acidic (below 7.0) with pH above 7.0 (basic) indicating the presence of amniotic fluid. Lab Address: [place] [address] [address] [facility] [address] Dept: [phone] Normal external genitalia, Normal urethral meatus CERVICAL EXAM: Visually closed MONITORING/ASSESSMENT: Baseline 140 / moderate variability / accelerations present / no decelerations No contractions on tocometer Reactive NST LABS Diagnostic tests reviewed for today's visit: Most recent labs and imaging results. 19 year old EGA:29w2d presenting with acutely worsening abdominal pain associated with chest pressure and shortness of breath Assessment AND Plan Abdominal pain during in third trimester (HCC) - Vital signs stable, afebrile, nontachycardic (more content not included)... [facility] 01-29-2025 Note HNO ID: [id number] Author: KOURTNEY RODRIGUEZ MD Service: Obstetrics Author Type: Physician Type: Procedures Filed: 01/29/2025 13:24 Note Text: OBSTETRICS NST SUMMARY SERVICE DATE: January 29, 2025 The patient is a 19 year old female, , who is at 29w2d with an FELIPE of 04/14/2025, by Last Menstrual Period dating method. NST OBJECTIVE FINDINGS PER NURSE: Start Time: 1302 (01/29/25 1317 : Salima Dee, RN) Complete Time: 1317 (01/29/25 1317 : Salima Dee, RN) Indications: Other: Comment (OB ED) (01/29/25 1317 : Salima Dee, RN) Patient Reason For: monitor baby (01/29/25 1317 : Salima Dee, RN) NST Explanation: Procedure Explained, Monitor Explained, Verbalizes Understanding (01/29/25 1317 : Salima Dee, RN) Acoustic Stimulator: No (01/29/25 1317 : Salima Dee RN) Interventions: MONITORING/ASSESSMENT: Baseline: 140 bpm (01/29/25 1317 : Salima Dee RN) Variability: Moderate (6-25 bpm) (01/29/25 1317 : Salima Dee RN) Accelerations: Present (01/29/25 1317 : Salima Dee RN) Decelerations: Decelerations: None (01/29/25 1317 : Salima Dee RN) Contractions: Not present (01/29/25 1317 : Salima Dee RN) Frequency: Above information forwarded to Dr. Rodriguez (01/29/251316 : Salima Dee RN) for final review and interpretation. SIGNATURE: Salima Dee RN PATIENT NAME: Rhonda Cohen DATE: January 29, 2025 TIME: 1:18 PM PROVIDER INTERPRETATION: Reactive 10 x10 accels, appropriate for gestational age SIGNATURE: Kourtney Rodriguez MD DATE: January 29, 2025 TIME: 1:24 PM [facility] 01-24-2025 Note HNO ID: [id number] Author: ALEKSANDER HODGES MA Service: ? Author Type: Podiatric Medicine Doctor Type: Progress Notes Filed: 01/24/2025 09:44 Note Text: Patient identified by name and date of . Rhonda Cohen presents today for a vaccination of Tdap. Patient denies an allergy to latex: yes Patient denies a severe (life-threatening) allergy to a previous dose of Tdap, DTP, DTaP, DT or Td vaccine. Yes Patient denies history of epilepsy or neurological problems: Yes Patient is afebrile and denies being moderately or severely ill: Yes Patient denies history of Guillain-[place] Syndrome (a severe paralytic illness): Yes Tdap Adacel injection was given without incident. See immunizations for details of immunizations administered today. VIS sheet provided: Yes Provider Maria Gibson MD was present in office at time of injection. Aleksander Hodges MA [facility] 01-20-2025 Progress note Formatting of t his note might be different from the original. KJ - S: Rhonda denies LOF, contractions or vaginal bleeding. Patient reports bilateral clear to white breast discharge. When this happens her breasts feel a little burning. Also she has occasional abdominal cramps. O: 28w0d, see flow sheet SENSITIVE EXAM: Sensitive exam not performed. ABDOMEN: soft, NT, ND, gravid A/P: Assessment & Plan Nipple discharge Patient reassured this is normal in . 28 weeks gestation of ([facility]) Encounter for supervision of normal first in third trimester ([facility]) Reassured on benign abdominal exam. Reviewed PTL & FM precautions Mc Diamond MD [facility] 01-20-2025 Miscellaneous Notes KJ - S: Rhonda denies LOF, contractions or vaginal bleeding. Patient reports bilateral clear to white breast discharge. When this happens her breasts feel a little burning. Also she has occasional abdominal cramps. O: 28w0d, see flow sheet SENSITIVE EXAM: Sensitive exam not performed. ABDOMEN: soft, NT, ND, gravid A/P: Assessment & Plan Nipple discharge Patient reassured this is normal in . 28 weeks gestation of ([facility]) Encounter for supervision of normal first in third trimester ([facility]) Reassured on benign abdominal exam. Reviewed PTL & FM precautions Mc Diamond MD documented in this encounter [facility] 01-09-2025 Telephone encounter Note See phone encounter dated 01/09/2025. Negrita Colby, UMAIR [facility] 01-09-2025 Miscellaneous Notes See phone encounter dated 01/09/2025. Negrita Colby, RN documented in this encounter [facility] 01-09-2025 Telephone encounter Note noted and agree. Eduin Dominguez MD [facility] Work Phone: 01-09-2025 Miscellaneous Notes noted and agree. Eduin Dominguez MD 26w3d Pt states the past week she's noticed increased swelling in her lower legs. States she's not drinking as much fluids as she should- she has noticed decreased in swelling when she drinks more. Has been sitting a lot and tucking feet a lot. Watching sodium intake. Pt also states she has had what feels like period cramps throughout . Advised Pt she should continue to drink plenty of fluids and advised her to try adding liquid IV to her drinks which includes the electrolytes and may help with the cramping, but it is likely that the cramping is just her uterus stretching to fit her growing baby. She is wanting to know if she should be concerned that baby is super active. Advised her that this is great and we want baby to be active. Advised her that we are concerned when baby is not active and instructed Pt on kick counts. Advised Pt to elevate legs when sitting. 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 Advised Pt it is safe as there is always a local hospital nearby and if she were to develop severe abdominal pain, LOF/vaginal bleeding, decreased movement to have her take her to ER. Pt voiced understanding. Negrita Colby, RN documented in this encounter [facility] 01-09-2025 Telephone encounter Note 26w3d Pt states the past week she's noticed increased swelling in her lower legs. States she's not drinking as much fluids as she should- she has noticed decreased in swelling when she drinks more. Has been sitting a lot and tucking feet a lot. Watching sodium intake. Pt also states she has had what feels like period cramps throughout . Advised Pt she should continue to drink plenty of fluids and advised her to try adding liquid IV to her drinks which includes the electrolytes and may help with the cramping, but it is likely that the cramping is just her uterus stretching to fit her growing baby. She is wanting to know if she should be concerned that baby is super active. Advised her that this is great and we want baby to be active. Advised her that we are concerned when baby is not active and instructed Pt on kick counts. Advised Pt to elevate legs when sitting. 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 Advised Pt it is safe as there is always a local hospital nearby and if she were to develop severe abdominal pain, LOF/vaginal bleeding, decreased movement to have her take her to ER. Pt voiced understanding. Negrita Colby RN [facility] 12-28-2024 Progress note Formatting of t his note might be different from the original. LEONARDO-S: Rhonda Cohen is a 19 year old female who presents at 24w5d with FELIPE:04/14/2025, by Last Menstrual Period for a routine visit. Denies headache, visual changes, chest pain, shortness of breath, vaginal bleeding, leakage of fluid, or dysuria. Musculoskeletal complaints and discomforts. O: See flow sheet Gen: No apparent distress Abd: Gravid, nontender ASSESSMENT/PLAN: 1. Encounter for supervision of normal first in first trimester -Continue PNV and ASA -Discussed chiropractor, stretching. 2. 24 weeks gestation of 3. Screening for diabetes mellitus 4. Anxiety -coping well, no medication at this time 5. Heartburn during in second trimester -Continues pepcid PTL precautions reviewed and when to call RTO in 4 weeks Vera Hatch APRN.CNM [facility] 12-28-2024 Miscellaneous Notes LEONARDO-S: Rhonda Cohen is a 19 year old female who presents at 24w5d with FELIPE:04/14/2025, by Last Menstrual Period for a routine visit. Denies headache, visual changes, chest pain, shortness of breath, vaginal bleeding, leakage of fluid, or dysuria. Musculoskeletal complaints and discomforts. O: See flow sheet Gen: No apparent distress Abd: Gravid, nontender ASSESSMENT/PLAN: 1. Encounter for supervision of normal first in first trimester -Continue PNV and ASA -Discussed chiropractor, stretching. 2. 24 weeks gestation of 3. Screening for diabetes mellitus 4. Anxiety -coping well, no medication at this time 5. Heartburn during in second trimester -Continues pepcid PTL precautions reviewed and when to call RTO in 4 weeks Vera Hatch APRN.CNM documented in this encounter [facility] 12-28-2024 Instructions Vera Hatch APRN.CNM - 12/28/2024 9:43 AM EDT Directions for Fresh Test at [facility] Order 50 gm test via [email or web address] to be mailed to you Bring packet/drink with you to the lab the day of the test If ordered the powder option- you MUST bring 10 oz of water to mix with Go to lab and drink in front of lab personnel Have lab draw your blood after 1 hour Any questions? Please call office at [phone] SIGNS AND SYMPTOMS OF LABOR 1. Contractions every 10 minutes or more often 2. Clear, pink, or brownish fluid (water) leaking from vagina 3. Feeling that baby is pushing down, pressure 4. Low, dull backache 5. Cramps that feel like a period 6. Cramps with or without diarrhea If you notice any of the above symptoms, contact our office at [phone] and ask to speak with a nurse. After hours, you can call doctors registry at [phone] OR call [facility] at [phone] and ask to have the doctor dehydration plant operator paged. If you consider this an emergency, dial or go to your nearest emergency department. NEED HELP? Are you dealing with a violent or abusive relationship? Are you a victim of rape or sexual assult? Call [facility] ([place]) 24 hour Crisis Hotline: 186.932.5070 or 473-945-4790. MANUAL Your Guide to a Healthy manual is now on-line. Visit [email or web address] [email or web address] to download your free copy documented in this encounter [facility] 12-06-2024 Telephone encounter Note Received ER summary from [facility], [facility] 12/05/2024, chief complaint abdominal pain, right hydronephrosis on ultrasound. Patient was d/c home with oxycodone and ondansetron. Placed summary in Shannan Villarreal MD inbox for review. [facility] 12-06-2024 Miscellaneous Notes Received ER summary from [facility], [facility] 12/05/2024, chief complaint abdominal pain, right hydronephrosis on ultrasound. Patient was d/c home with oxycodone and ondansetron. Placed summary in Shannan Villarreal MD inbox for review. documented in this encounter [facility] 12-05-2024 Discharge summary [facility] 12-05-2024 Discharge summary Note Date/Time December 05, 2024 3:03pm [facility] Medical Records Department [address] [place] [address] Emergency Department Summary 12/05/24 MR#: [id number] Acct: [id number] Name: RHONDA COHEN Rep #:[id number] : 2005 19 From: Jenaro Vigil MD PCP: Dr. Ezekiel Villarreal MD Status:REG ER Location: ED HPI HPI - GI History of Present Illness Chief Complaint: Abd Pain Informant: patient and PCP Narrative Narrative: Healthy 19-year-old female 21 weeks and 3 days states she was awakened in the middle of the night 3 AM this past night with pain in her right flank and nausea no vomiting. No vaginal bleeding. No problems urinating. Never had this pain before. Seen in the office and examined, tender throughout the right abdomen without guarding or rebound and referred here to the ER for ultrasound possible kidney stone, possible appendicitis. Patient never had either [address] Gibson, urine was positive for blood and otherwise negative in the office they sent for culture. [facility] Medical History Anxiety Home Medications ?Medication ?Instructions ?Recorded ?Last Taken ?Type aspirin 81 mg capsule 81 mg PO DAILY 12/05/24 Unkn own History cyclobenzaprine 5 mg tablet 5 mg PO TID PRN PRN muscle spasms 12/05/24 Unknown History docusate sodium 100 mg capsule 100 mg PO BID 12/05/24 Unknown History famotidine 40 mg tablet 40 mg PO DAILY 12/05/24 Unkn own History metoclopramide HCl 10 mg tablet 10 mg PO TID PRN PRN n ausea and 12/05/24 Unknown History vomiting ondansetron 4 mg disintegrating 4 mg PO Q8H PRN PRN Na usea #10 tabs 12/05/24 Unknown Rx tablet oxycodone 5 mg tablet 5 mg PO Q6H PRN pain 3 days #12 12/05/24 Unknown Rx tabs Allergy/AdvReac Type Severity Reaction Status Date / Time acetaminophen (From Tylenol) AdvReac Abd Verified 05/27/22 11:03 cramps/diarrhea ibuprofen AdvReac Abd Verified 05/27/22 11:03 cramps/diarrhea Penicillins AdvReac Anaphylaxis Verified 05/27/22 11:02 Surgical History H/O colonoscopy H/O endoscopy Social History Smoking Status: Never smoker substance use type: does not use ROS ROS ED Constitutional Constitutional ED: Denies chills or fever(s) Eyes Eyes: Denies change in vision or diplopia ENT ENT ED: Denies rhinorrhea or sore throat Cardiovascular Cardiovascular: Denies chest pain or palpitations Respiratory/Chest Respiratory/Chest: Denies cough or dyspnea Gastrointestinal Gastrointestinal: Reports abdominal pain; Denies diarrhea, nausea or vomiting Genitourinary Genitourinary ED: Reports flank pain; Denies dysuria or hematuria Musculoskeletal Musculoskeletal: Reports back pain; Denies neck pain Integumentary Denies abscess or rash Neurologic Neurologic: Denies headache(s), paresthesias or weakness Psychiatric Psychiatric: Denies anxiety or suicidal thoughts EXAM Physical Exam Const Vital Signs: 12/05/24 10:32 12/05/24 12:32 12/05/24 14:00 Temperature 98.1 F Temperature Source Temporal Pulse Rate 106 H 106 H 100 Respiratory Rate 18 20 H 20 H Blood Pressure 86/70 L 115/62 Blood Pressure Mean 75 79 Pulse Ox 99 99 100 Oxygen Delivery Method Room Air Room Air Room Air Positive well nourished and well developed Constitutional Narrative: Appears uncomfortable but in no distress General Appearance ED: well developed and NAD HEENT Reports moist mucous membranes normocephalic and atraumatic Eyes PERRL and EOMs intact bilaterally Neck full ROM and supple Resp normal respiratory effort and clear to auscultation bilaterally Cardio regular rate, regular rhythm and no murmurs GI non-distended GI Narrative: Tender throughout the right side of the abdomen. No guarding or rebound tenderness. Negative Rovsing, negative obturator, positive psoas. Distended toabout the umbilicus consistent with second trimester , this area is nontender. Auscultation: normoactive bowel sounds Palpation: soft Back/Spine Back/Spine Narrative: Mild right CVA tenderness not severe. Normal inspection. General Back: other FROM Extremity normal to inspection General Extremety ED: Negative for edema, pulses abnormal or tenderness General Extremity: Negative for edema or pulses abnormal Neuro oriented x3, CN's II-XII intact bilaterally and no sensory deficits noted Sensorium / Orientation: awake and alert Motor Exam: strength 5/5 throughout Skin no rashes or lesions noted and no wounds MDM MDM MDM Narrative Medical decision making narrative: Severe pain that wakes her up in the middle the night is more consistent with renal colic/urolithiasis/obstructive uropathy then it is appendicitis so starting with ultrasound and treating her with morphineSandra discussed with patient and family they are comfortable with that plan first along with some blood work. Blood work unremarkable, there is a mild leukocytosis which is normal during , there is not a strong leftward shift and her renal function is normal. Ultrasound of the kidneys and bladder were obtained, and basically consistent with right hydronephrosis. I reviewed the images and the report which I agree with. In this context, kidney stone causing an obstructive uropathy on the right ureter is most likely. Gravid uterus can cause this but it should be position dependent which her symptoms or not. She was given morphine after we discussed pros and cons of medications, and this did help. She states she isin discomfort but she is tolerating and she is very sensitive to medications andconcerned about that at home and pain control. She does not react well to acetaminophen or tramadol. She is never tried oxycodone something to give her prescription for some, and she knows that she can break these into halves or quarters to use as needed. We discussed the pros and cons of surgical management here, and the need for CT imaging if she desires to seek surgical management. I think expectant management is reasonable for now along with strainers at home, and symptom control. Discussed with patient, family, they all have a history of kidney stone and the patient 7-year-old brother had a kidney stone, making this much more likely here in this patient. At this time they are okay with holding off on scanning/imaging further, and expectant management with symptom control, advised to follow-up and given urology's information to make an appointment. Lab Data Attestation: I reviewed the patient's lab results. Labs: Laboratory Results - last 24 hr 12/05/24 11:49 WBC 12.1 H RBC 3.53 L Hgb 10.0 L Hct 29.7 L MCV 84.1 MCH 28.3 MCHC 33.7 RDW Std Deviation 41.8 RDW Coeff of [place] 13.8 Plt Count 241 MPV 10.4 Immature Gran % (Auto) 1.200 H Neut % (Auto) 75.5 H Lymph % (Auto) 14.4 L [place] % (Auto) 7.8 Eos % (Auto) 0.7 Baso % (Auto) 0.4 Absolute Neuts (auto) 9.2 H Absolute Lymphs (auto) 1.74 Nucleated RBC % 0 Sodium 135 Potassium 3.7 Chloride 107 Carbon Dioxide 17.9 L Anion Gap 11 BUN 9 Creatinine 0.36 L Estim Creat Clear Calc 234.28 Est GFR (MDRD) Non-Af 148 BUN/Creatinine Ratio 25.7 H Glucose 79 Calcium 8.7 Radiography Diagnostic Testing: Clinical Impression(s) from Imaging Studies Renal Ultrasound 12/05/24 11:06 IMPRESSION: Moderate degree of right hydronephrosis. Reading Location: [place] [address] Discharge Plan Triage Chief Complaint: Abd Pain ED Provider: Jenaro Vigil Dx/Rx/DC Orders Clinical Impression: Acute unilateral obstructive uropathy, Ureteral colic, Second trimester Instructions: ED Urine Strainer, ED Kidney Stone with Pain Prescriptions: New oxycodone 5 mg tablet 5 mg PO Q6H PRN (Reason: pain) 3 Days Qty: 12 0RF ondansetron 4 mg tablet,disintegrating 4 mg PO Q8H PRN PRN (Reason: Nausea) Qty: 10 0RF No Action aspirin 81 mg capsule 81 mg PO DAILY famotidine 40 mg tablet 40 mg PO DAILY cyclobenzaprine 5 mg tablet 5 mg PO TID PRN PRN (Reason: muscle spasms) docusate sodium 100 mg capsule 100 mg PO BID metoclopramide HCl 10 mg tablet 10 mg PO TID PRN PRN (Reason: nausea and vomiting) Primary Care Provider: Ezekiel Villarreal Referrals: Manasa Cooley MD [Med Staff - Active Staff] - 1 Week if not improving Print Language: Syriac Disposition Disposition: Home, Self Care What to do if you have Problems For any increased pain, shortness of breath, bleeding, nausea or vomiting, chestpain, or any unexpected problems, contact your Primary Care Provider. Call [facility] ([phone]) or report to the closest Emergency Room. Call 911 if necessary. 12/05/24 1503 <Electronically signed by Jenaro Vigil MD> Cosigner Signature (if applicable): CC: Dr. Ezekiel Villarreal MD ~ Signed [facility] Work Phone: [phone]) 990-982003-31-2025 Radiology Diagnostic study note [facility] Imaging Services [address] [place], [place] [address] Kidney and Bladder MR#: [id number] Acct: [id number] Name: RHONDA COHEN Rep #: [id number] : 2005 F 19 From: Mauricio Pyle MD PCP: Dr. Ezekiel Villarreal MD Status: REG ER Study:Kidney and Bladder Date of Exam: 0 12/05/24 Exam# [id number] Ordering Dr: Alissa Vigil MD PROCEDURE: KIDNEY AND BLADDER 12/05/2024 REASON FOR EXAM: R FLANK PAIN, TECHNIQUE: Bilateral renal ultrasound. COMPARISON: Comparison is made with prior CT scan of the abdomen and pelvis dated May 27, 2022. FINDINGS: Kidneys: Normal renal sizes, parenchymal thicknesses, and echotextures. [place]: Moderate right hydronephrosis. Cysts or Masses: No cysts or large solid renal masses. RIGHT Kidney Size: 11.6 cm x 5.3 cm x 6.1 cm Volume: 194 mL Cortical Thickness (if discernible): 1.2 cm (>6mm is normal) LEFT Kidney Size: 10.3 cm x 4.8 cm x 4.9 cm Volume: 126 mL Cortical Thickness (if discernible): 1 cm (>6mm is normal) The urinary bladder is visualized and is unremarkable. US/Kidney and Bladder IMPRESSION: Moderate degree of right hydronephrosis. Reading Location: [facility] CC: Dr. Jenaro Vigil MD; Dr. Ezekiel Villarreal MD ~ Pet Sitter: Signed [facility]03-31-2025 NoteHNO ID: [id number] Author: MARIA EPPS MD Service: ? Author Type: Physician Type: Progress Notes Filed: 12/05/2024 13:15 Note Text: DM-Pt seen urgently for abdominal pain that kept her up all night- coming and going more on right side. Pain minimal now. Has some nausea no vomiting. Denies vaginal Bleeding, Leaking fluid, or regular Contractions. Pt reports good movement Physical Exam: Gen: female in no apparent distress Abd: soft, Gravid. Non tender to palpation. See flow sheet @ 21.3 abdominal pain- r/o stone vs less like appendicitis Assessment AND Plan Encounter for supervision of normal first in second trimester (HCC) Abdominal pain in , second trimester (HCC) Tender but no rebound, no guarding Intermittent pain- ?? Stone vs less likely appendicitis- called [facility] ER- will send for imaging- start with Abd ultrasound then CT If indicated. Pelvic cramping Orders: UA DIP, URINE (POC) BACTERIAL CULTURE, URINE 21 weeks gestation of (HCC) RTO as scheduled Maria Madrid [facility]03-31-2025 History of Present illness Narrative* Maria Epps MD - 12/05/2024 9:56 AM EDT DM-Pt seen urgently for abdominal pain that kept her up all night- coming and going more on right side. Pain minimal now. Has some nausea no vomiting. Denies vaginal Bleeding, Leaking fluid, or regular Contractions. Pt reports good movement Physical Exam: Gen: female in no apparent distress Abd: soft, Gravid. Non tender to palpation. See flow sheet @ 21.3 abdominal pain- r/o stone vs less like appendicitis Assessment & Plan Encounter for supervision of normal first in second trimester (HCC) Abdominal pain in , second trimester (HCC) Tender but no rebound, no guarding Intermittent pain- ?? Stone vs less likely appendicitis- called [facility] ER- will send for imaging- start with Abd ultrasound then CT If indicated. Pelvic cramping Orders: UA DIP, URINE (POC) BACTERIAL CULTURE, URINE 21 weeks gestation of (HCC) RTO as scheduled Maria Madrid MD documented in [facility] encounter[facility]03-[facility] Progress note* Quick Notes - Maria Epps MD - 12/05/2024 9:46 AM EDT DM-Pt seen for abdominal pain. Denies vaginal Bleeding, Leaking fluid, or regular Contractions. Pt reports good movement Physical Exam: Gen: female in no apparent distress Abd: soft, Gravid. Non tender to palpation. See flow sheet @21.3 weeks Assessment & Plan Encounter for supervision of normal first in second trimester ([facility]) Pelvic cramping Orders: UA DIP, URINE (POC) 21 weeks gestation of ([facility]) Maria Madrid MD [facility]03-31-2025 Miscellaneous Notes* Quick Notes - Maria Epps MD - 12/05/2024 9:46 AM EDT DM-Pt seen for abdominal pain. Denies vaginal Bleeding, Leaking fluid, or regular Contractions. Pt reports good movement Physical Exam: Gen: female in no apparent distress Abd: soft, Gravid. Non tender to palpation. See flow sheet @21.3 weeks Assessment & Plan Encounter for supervision of normal first in second trimester ([facility]) Pelvic cramping Orders: UA DIP, URINE (POC) 21 weeks gestation of ([facility]) Maria Madrid MD documented in this encounterGreen [facility]03-31-[facility]25 Instructions* Patient Instructions* Thomas Cohen MA - 12/05/2024 9:42 AM EDT SEQUENTIAL SCREENINGS [facility] offers sequential screenings for women who are interested in screenings for chromosomal abnormalities and certain defects during a . The sequential screen combinesultrasound and blood tests to determine the risk of chromosomal abnormalities, including Down's Syndrome (Trisomy 21) and Trisomy 18, as well as open neural tube defects including spina bifida. Ultrasound examination is performed between 11 weeks and 13 weeks gestational age. Blood tests are drawn after the ultrasound and again later in the between 15 and 21 weeks gestational age. Please let your physician know if you are interested in this testing. It will require an appointment withour platform power technician. This is not an ultrasound performed by a physician in our office during a routine visit. SIGNS AND SYMPTOMS OF LABOR 1. Contractions every 10 minutes or more often 2. Clear, pink, or brownish fluid (water) leaking from vagina 3. Feeling that baby is pushing down, pressure 4. Low, dull backache 5. Cramps that feel like a period 6. Cramps with or without diarrhea If you notice any of the above symptoms, contact our office at [phone] and ask to speak with anurse. After hours, you can call doctors registry at [phone] OR call [facility] at [phone] ask to have the doctor dehydration plant operator paged. If you consider this an emergency, dial 9- or go to your nearest emergency department. NEED HELP? Are you dealing with a violent or abusive relationship? Are you a victim of rape or sexual assult? Call [facility] ([place]) 24 hour Crisis Hotline: 114.710.1327 or 545-909-5468. MANUAL Your Guide to a Healthy manual is now on-line. Visit [email or web address] to download your free copy documented in this encounterGreen Cross Hospital03-25-2025 Progress note* Result Encounter Note - Eduin Dominguez MD - 11/29/2024 4:11 PM EDT Anatomy ultrasound reviewed. No abnormalities identified. Follow up as clinically indicated. Pleaseplace copy in ob chart. Eduin Dominguez MD [facility] Work Phone: [phone] Miscellaneous Notes* Result Encounter Note - Eduin Dominguez MD - 11/29/2024 4:11 PM EDT Anatomy ultrasound reviewed. No abnormalities identified. Follow up as clinically indicated. Pleaseplace copy in ob chart. Eduin Dominguez MD documented in this encounterGreen Cross Hospital03-24-2025 Note* Addendum Note - Aleksander Hodges MA - 11/28/2024 9:33 AM EDTAddended by: ALEKSANDER HODGES on: 11/28/2024 09:33 AM Modules accepted: Orders [facility]03-24-2025 Miscellaneous Notes* Addendum Note - Aleksander Hodges MA - 11/28/2024 9:33 AM EDTAddended by: ALEKSANDER HODGES on: 11/28/2024 09:33 AM Modules accepted: Orders * Quick Notes - Vera Hatch APRN.CNM - 11/28/2024 9:15 AM EDT LEONARDO-S: Rhonda Cohen is a 19 year old female who presents at 20w3d with FELIPE:04/14/2025, by Last Menstrual Period for a routine visit. Denies headache, visual changes, chest pain, vaginal bleeding, leakage of fluid, or dysuria. Having some pelvic cramping on and off throughout the day. Nothing brings this on or makes it better. O: See flow sheet Gen: No apparent distress Abd: Gravid, nontender ASSESSMENT/PLAN: 1. 20 weeks gestation of -Continue PNV and ASA -Anatomy US today 2. Encounter for supervision of normal first in second trimester 3. Anxiety -No medication coping well 4. Constipation, unspecified constipation type -Continue Colace 5. Heartburn during in second trimester -Continue Pepcid 6. Dizziness -Reviewed compressions stockings, hydration, electrolytes, slow positional changes. Improved and noreferral or work up at this. 7. Pelvic cramping - BACTERIAL CULTURE, URINE - UA DIP B/O - PELVIC BELT/HARNESS/BOOT 6. Round ligament pain - PELVIC BELT/HARNESS/BOOT PTL precautions reviewed and when to call RTO in 4 weeks Vera Hatch APRN.CNM documented in this encounterGreen Cross Hospital03-24-2025 Progress note* Quick Notes - Vera Hatch APRN.CNM - 11/28/2024 9:15 AM EDT LEONARDO-S: Rhonda Cohen is a 19 year old female who presents at 20w3d with FEILPE:04/14/2025, by Last Menstrual Period for a routine visit. Denies headache, visual changes, chest pain, vaginal bleeding, leakage of fluid, or dysuria. Having some pelvic cramping on and off throughout the day. Nothing brings this on or makes it better. O: See flow sheet Gen: No apparent distress Abd: Gravid, nontender ASSESSMENT/PLAN: 1. 20 weeks gestation of -Continue PNV and ASA -Anatomy US today 2. Encounter for supervision of normal first in second trimester 3. Anxiety -No medication coping well 4. Constipation, unspecified constipation type -Continue Colace 5. Heartburn during in second trimester -Continue Pepcid 6. Dizziness -Reviewed compressions stockings, hydration, electrolytes, slow positional changes. Improved and noreferral or work up at this. 7. Pelvic cramping - BACTERIAL CULTURE, URINE - UA DIP B/O - PELVIC BELT/HARNESS/BOOT 6. Round ligament pain - PELVIC BELT/HARNESS/BOOT PTL precautions reviewed and when to call RTO in 4 weeks Vera Hatch APRN.CNM [facility]03-24-2025 Instructions* Patient Instructions* Vera Hatch APRN.CNM - 11/28/2024 8:37 AM EDT [email or web address] SIGNS AND SYMPTOMS OF LABOR 1. Contractions every 10 minutes or more often 2. Clear, pink, or brownish fluid (water) leaking from vagina 3. Feeling that baby is pushing down, pressure 4. Low, dull backache 5. Cramps that feel like a period 6. Cramps with or without diarrhea If you notice any of the above symptoms, contact our office at [phone] and ask to speak with anurse. After hours, you can call doctors registry at [phone] OR call [facility] at [phone] ask to have the doctor dehydration plant operator paged. If you consider this an emergency, dial 9-1-1 or go to your nearest emergency department. NEED HELP? Are you dealing with a violent or abusive relationship? Are you a victim of rape or sexual assult? Call [facility] ([place]) 24 hour Crisis Hotline: 462.127.6799 or 850-998-0033. MANUAL Your Guide to a Healthy manual is now on-line. Visit [email or web address] to download your free copy documented in this encounterGreen Cross Hospital03-17-2025 NoteHNO ID: [id number] Author: IRASEMA KENNEDY MD Service: Obstetrics Author Type: Resident Type: Progress Notes Filed: 11/21/2024 19:51 Note Text: Attestation signed by Irasema Kennedy MD at 11/21/2024 7:51 PM Attending Note I personally saw and examined the patient. I reviewed the resident's note. I agree with the resident's assessment and plan unless otherwise noted. Signature: Irasema Kennedy MD Date: 11/21/2024 Time: 7:50 PM OBSTETRICS OB ED PROGRESS NOTE SERVICE DATE: November 21, 2024 SERVICE TIME: 5:55 PM Subjective Patient's stated reason for arrival: Cramping on the right side, pelvic/vaginal pain/pressure HISTORY OF THE PRESENT ILLNESS: The patient is a 19 year old female, who is at 19w3d with an FELIPE of 04/14/2025, by Last Menstrual Period dating method. has been confirmed by ultrasound. Patient presents with 3 days of right sided abdominal pain . It is crampy in nature, 5/10 at its worst. Aggravated by movement, like sitting up in bed. No alleviating factors, has tried heat pack, no Tylenol as has an intolerance. Occasionally radiates to pubic symphysis. No diarrhea, constipation, emesis, fever, chills, dysuria or hematuria. PAST MEDICAL HISTORY Diagnosis Date Anxiety and depression History of IBS PAST SURGICAL HISTORY Procedure Laterality Date COLONOSCOPY SCREENING EGD W/O BRSH SPEC VARICIES INJ 07/06/2023 OB History Gravida1 Para0 Term0 Preterm0 AB0 Living0 SAB0 IAB0 Ectopic0 Multiple0 Live Births0 REVIEW OF SYSTEMS: The remainder of the review of systems is negative. Objective LAST VITALS: Pulse: 106 BP: 105/77 Resp: 18 Temp: 36.6 ?C (97.9 ?F) SpO2: 97 % Height: 162.6 cm (5' 4) Weight: 64 kg (141 lb) BMI: 24.2 SENSITIVE EXAMINATION CONSENT: Participation of a fellow, resident, medical student, or advanced practice provider student in performing the sensitive examination was discussed with the patient or authorized market survey representative. The patient or authorized market survey representative has agreed to proceed with the sensitive examination. PHYSICAL EXAM: General: WD, WN, NAD, mildly uncomfortable appearing with movement Heart: RR, appears well perfused Lungs: normal respiratory effort on room air Abdomen: soft, fundus palpable at umbilicus, moderately tender in suprapubic region, mild tenderness in RLQ and LLQ, aggravated with lateral displacement of uterus, no rebound tenderness or guarding, pain to palpation of pubic symphysis; no CVA tenderness Pelvis: External genitalia normal without lesions. Perineal body intact. No vaginal or cervical lesions. Cervix closed visually and digitally. Small amount of physiologic discharge in vaginal vault. Extremities: no edema; no paraspinal muscle, spine or SI joint tenderness to palpation CERVICAL EXAM: Dilation: Closed (11/21/241901 : Yelena Iqbal MD) Effacement (%): 0 (11/21/241901 : Yelena Iqbal MD) ASSESSMENT: heart rate present: Mode: Doppler (11/21/24 1700 : Marisol Galeano, RN) Doppler/Fetoscope Rate: 145 bpm (11/21/24 1700 : Marisol Galeano RN) Diagnostic tests reviewed for today's visit: Most recent labs and imaging results. Urine dip: trace protein, otherwise unremarkable (- nitrite, - leukocytes) 19 year old at 19w3d with abdominal pain in which is musculoskeletal in nature. Assessment AND Plan 19 weeks gestation of - FHR present and appropriate - No VB, no LOF, no contractions, occasional flutters Abdominal pain affecting - R sided, worse suprapubically with palpation - VS wnl - Abd: no acute findings - Pelvic: cervix closed, unremarkable - 5mg Flexeril administered with some relief of symptoms; will prescribe at discharge as cannot tolerate Tylenol - Given physical exam and history, most likely musculoskeletal in nature, unlikely to be UTI or appendicitis - Discussed return precautions for fever, chills, worsening pain, OB indications - Discussed conservative pain control options with warm bath, heat pack, stretching, belly band, etc. - Patient and support person (mother) noted understanding, has return OB visit 11/28/24 Plan of care discussed with: Provider, RN, Patient and Dr. Kennedy . SIGNATURE: Yelena Iqbal MD PATIENT NAME: Rhonda Cohen DATE: November 21, 2024 TIME: 5:55 PM [id number] Telephone encounter Note* Telephone Encounter - Negrita Colby RN - 11/21/2024 3:34 PM EDT For past few days-right sided intermittent cramping, but could last for hours - Feels like period cramping. Past 2 mornings-woke up feels like something is around my belly button on my right side. Denies vaginal bleeding. Discharge has more liquidly than usual. C/o vaginal pressure/vaginal pain-more intense when sitting or laying down. Denies LOF. At 19w3d Pt states she has not been feeling baby actively move consistently d/t anterior placenta. Pt has tried heat.Unable to take Tylenol d/t intolerance. Pt advised of recommendation to be evaluated at OB ED at [facility]. Pt states she will have hermom drive her. Negrita Colby RN [facility]03-17-2025 Miscellaneous Notes* Telephone Encounter - Negrita Colby RN - 11/21/2024 3:34 PM EDT For past few days-right sided intermittent cramping, but could last for hours - Feels like period cramping. Past 2 mornings-woke up feels like something is around my belly button on my right side. Denies vaginal bleeding. Discharge has more liquidly than usual. C/o vaginal pressure/vaginal pain-more intense when sitting or laying down. Denies LOF. At 19w3d Pt states she has not been feeling baby actively move consistently d/t anterior placenta. Pt has tried heat.Unable to take Tylenol d/t intolerance. Pt advised of recommendation to be evaluated at OB ED at [facility]. Pt states she will have hermom drive her. Negrita Colby RN * Telephone Encounter - Vera Hatch APRN.CNM - 11/21/2024 3:24 PM EDT Please call patient and recommend she get evaluation. Would recommend going to the OB ED at [facility] instead of coming to our ED for further evaluation and US if needed. Vera Hatch APRN.CNM documented in this encounterGreen Cross Hospital03-17-2025 Telephone encounter Note * Telephone Encounter - Vera Hatch APRN.CNM - 11/21/2024 3:24 PM EDT Please call patient and recommend she get evaluation. Would recommend going to the OB ED at [facility] instead of coming to our ED for further evaluation and US if needed. Vera Hatch APRN.CNM [facility]02-25-2025 Progress note* Quick Notes - Vera Hatch APRN.CNM - 11/01/2024 8:10 AM EST LEONARDO-S: Rhonda Cohen is a 19 year old female who presents at 16w4d with FELIPE:04/14/2025, by Last Menstrual Period for a routine visit. Denies headache, visual changes, chest pain, vaginal bleeding, leakage of fluid, or dysuria. Complaints of SOB with exertion, palpitations at times and dizziness.Resolves once positional change and quickly goes away. States she had a history of this in the past and worked up with neuro. O: See flow sheet Gen: No apparent distress Abd: Gravid, nontender ASSESSMENT/PLAN: 1. 16 weeks gestation of -Continue PNV and ASA -Anatomy US at 20 weeks -PN labs reviewed 2. Encounter for supervision of normal first in second trimester 3. Anxiety -No medication coping well 4. Constipation, unspecified constipation type -Continue Colace 5. Heartburn during in second trimester -Continue Pepcid 6. Dizziness -Reviewed compressions stockings, hydration, electrolytes, slow positional changes. Discussed normal discomforts vs concerns for cardiac/neuro. Will try conservative measures and if no improvement to notify the office and will order EKG, Zio patch, and possible cardio consult. PTL precautions reviewed and when to call RTO in 4 weeks Vera Hatch APRN.CNM [facility]02-25-2025 Miscellaneous Notes* Quick Notes - Vera Hatch APRN.CNM - 11/01/2024 8:10 AM EST LEONARDO-S: Rhonda Cohen is a 19 year old female who presents at 16w4d with FELIPE:04/14/2025, by Last Menstrual Period for a routine visit. Denies headache, visual changes, chest pain, vaginal bleeding, leakage of fluid, or dysuria. Complaints of SOB with exertion, palpitations at times and dizziness.Resolves once positional change and quickly goes away. States she had a history of this in the past and worked up with neuro. O: See flow sheet Gen: No apparent distress Abd: Gravid, nontender ASSESSMENT/PLAN: 1. 16 weeks gestation of -Continue PNV and ASA -Anatomy US at 20 weeks -PN labs reviewed 2. Encounter for supervision of normal first in second trimester 3. Anxiety -No medication coping well 4. Constipation, unspecified constipation type -Continue Colace 5. Heartburn during in second trimester -Continue Pepcid 6. Dizziness -Reviewed compressions stockings, hydration, electrolytes, slow positional changes. Discussed normal discomforts vs concerns for cardiac/neuro. Will try conservative measures and if no improvement to notify the office and will order EKG, Zio patch, and possible cardio consult. PTL precautions reviewed and when to call RTO in 4 weeks Vera Hatch APRN.CNM documented in this encounterGreen Cross Hospital02-21-2025 Progress note* Quick Notes - Vera Hatch APRN.CNM - 10/28/2024 11:52 AM EST LEONARDO-S: Rhonda Cohen is a 19 year old female who presents at 16w0d with FELIPE:04/14/2025, by Last Menstrual Period for a problem visit. Denies headache, visual changes, chest pain, shortness of breath, vaginal bleeding, leakage of fluid, or dysuria. Having cramping on and off since last night. States it is more constant than intermittent. Concerned and just wanted evaluated. O: See flow sheet Gen: No apparent distress Abd: Gravid, nontender, no rebound tenderness, no CVAT VE:cervix closed, no blood, discharge, or fluid leakage. ASSESSMENT/PLAN: 1. Encounter for supervision of normal first in second trimester - BACTERIAL CULTURE, URINE - KANG/TRICHOMONAS NAAT - BACTERIAL VAGINOSIS NAAT 2. 16 weeks gestation of 3. Cramping affecting , antepartum - BACTERIAL CULTURE, URINE - KANG/TRICHOMONAS NAAT - BACTERIAL VAGINOSIS NAAT - Reviewed no signs of acute abdomen, pyelonephritis, or PTL. If no improvement after rest and hydration, reviewed presenting to OB ED. 4. Anxiety PTL precautions reviewed and when to call RTO for routine visit Vera Hatch APRN.CNM [facility]02-21-2025 Miscellaneous Notes* Quick Notes - Vera Hatch APRN.CNM - 10/28/2024 11:52 AM EST LEONARDO-S: Rhonda Cohen is a 19 year old female who presents at 16w0d with FELIPE:04/14/2025, by Last Menstrual Period for a problem visit. Denies headache, visual changes, chest pain, shortness of breath, vaginal bleeding, leakage of fluid, or dysuria. Having cramping on and off since last night. States it is more constant than intermittent. Concerned and just wanted evaluated. O: See flow sheet Gen: No apparent distress Abd: Gravid, nontender, no rebound tenderness, no CVAT VE:cervix closed, no blood, discharge, or fluid leakage. ASSESSMENT/PLAN: 1. Encounter for supervision of normal first in second trimester - BACTERIAL CULTURE, URINE - KANG/TRICHOMONAS NAAT - BACTERIAL VAGINOSIS NAAT 2. 16 weeks gestation of 3. Cramping affecting , antepartum - BACTERIAL CULTURE, URINE - KANG/TRICHOMONAS NAAT - BACTERIAL VAGINOSIS NAAT - Reviewed no signs of acute abdomen, pyelonephritis, or PTL. If no improvement after rest and hydration, reviewed presenting to OB ED. 4. Anxiety PTL precautions reviewed and when to call RTO for routine visit Vera Hatch APRN.CNM documented in this encounterGreen Cross Hospital02-21-2025 Instructions* Patient Instructions* Aleksander Hodges MA - 10/28/2024 9:28 AM EST SEQUENTIAL SCREENINGS [facility] offers sequential screenings for women who are interested in screenings for chromosomal abnormalities and certain defects during a . The sequential screen combinesultrasound and blood tests to determine the risk of chromosomal abnormalities, including Down's Syndrome (Trisomy 21) and Trisomy 18, as well as open neural tube defects including spina bifida. Ultrasound examination is performed between 11 weeks and 13 weeks gestational age. Blood tests are drawn after the ultrasound and again later in the between 15 and 21 weeks gestational age. Please let your physician know if you are interested in this testing. It will require an appointment withour platform power technician. This is not an ultrasound performed by a physician in our office during a routine visit. SIGNS AND SYMPTOMS OF LABOR 1. Contractions every 10 minutes or more often 2. Clear, pink, or brownish fluid (water) leaking from vagina 3. Feeling that baby is pushing down, pressure 4. Low, dull backache 5. Cramps that feel like a period 6. Cramps with or without diarrhea If you notice any of the above symptoms, contact our office at [phone] and ask to speak with anurse. After hours, you can call doctors registry at [phone] OR call [facility] at [phone] ask to have the doctor dehydration plant operator paged. If you consider this an emergency, dial 9-1-7 or go to your nearest emergency department. NEED HELP? Are you dealing with a violent or abusive relationship? Are you a victim of rape or sexual assult? Call [facility] ([place]) 24 hour Crisis Hotline: 469.654.9154 or 504-938-0121. MANUAL Your Guide to a Healthy manual is now on-line. Visit [email or web address] to download your free copy documented in this encounterGreen Cross Hospital02-04-2025 Telephone encounter Note * Telephone Encounter - Veronica Mcdonald RN - 10/11/2024 12:24 PM EST Hold already removed from schedule. Veronica Mcdonald RN [facility]02-04-2025 Miscellaneous Notes* Telephone Encounter - Veronica Mcdonald RN - 10/11/2024 12:24 PM EST Hold already removed from schedule. Veronica Mcdonald RN * Telephone Encounter - Vera Hatch APRN.CNM - 10/11/2024 12:18 PM EST Sorry, this was on accident the other day and we tried to catch but must not have got deleted. She does not need US. Please cancel appointment and I sent her a message. Vera Hatch APRN.CNM * Telephone Encounter - Jasmin Soni RN - 10/11/2024 10:40 AM EST Placed 10/31 @ 2:30 PM on hold until we hear back from her. Jasmin Soni RN * Telephone Encounter - Jasmin Soni RN - 10/11/2024 10:28 AM EST 16 week anatomy US order pending. Please file. documented in this encounterGreen Cross Hospital02-04-2025 Telephone encounter Note * Telephone Encounter - Vera Hatch APRN.CNM - 10/11/2024 12:18 PM EST Sorry, this was on accident the other day and we tried to catch but must not have got deleted. She does not need US. Please cancel appointment and I sent her a message. Vera Hatch APRN.CNM [facility]02-04-2025 Telephone encounter Note* Telephone Encounter - Jasmin Soni RN - 10/11/2024 10:40 AM EST Placed 10/31 @ 2:30 PM on hold until we hear back from her. Jasmin Soni RN [facility]02-04-2025 Telephone encounter Note* Telephone Encounter - Jasmin Soni RN - 10/11/2024 10:28 AM EST 16 week [facility] US order pending. Please file. [facility]01-31-2025 Instructions* Patient Instructions* Yanci Lewis APRN.CNP - 10/07/2024 8:33 AM EST (R39.9) Urinary tract infection symptoms (primary encounter diagnosis) Plan: BACTERIAL CULTURE, URINE UA doesn't look infectious. Will send culture. -Increase fluids. Focus on clears. -Decrease sugary drink intake. Minimize caffeine. -Wipe front to back. No tight clothing. No bubble baths. -Results will be released to [facility] unless there is a need for a change in medication. -If no improvement in 3-5 days please be re-seen with primary care. -Be seen immediately or go to the ER with worsening/warning symptoms. Warning symptoms include: chills, severe flank pain, severe abdominal/pelvic pain, fevers 101 or higher, chest pain, and respiratory distress. Certain foods and beverages might irritate your bladder, including: Coffee, tea and carbonated drinks, even without caffeine. Alcohol. Certain acidic fruits -- oranges, grapefruits, latoya and limes -- and fruit juices. Spicy foods. Tomato-based products. Carbonated drinks. Chocolate. documented in this encounterGreen [facility]01-31-[facility]25 NoteHNO ID: [id number] Author: YANCI LEWIS APRN.BOOKING SUPERVISOR Service: ? Author Type: Nurse Practitioner Type: Progress Notes Filed: 10/07/2024 08:59 Note Text: This note was created using Begunriter. Subjective Rhonda Cohen is a 19 year old female. HPI by patient: Rhonda Cohen is a 19 year old presenting to the office with the complaint of uti symptoms. Started approximately 1 week ago. Associated symptoms include pain after urination and frequency. Is 13 weeks . Having round ligament pain. Denies fever, chills, and vaginal symptoms. OTC not used. No antibiotic use in the last 60 days. ALLERGIES Atarax [Hydroxyzine] Other: See Comments Comment:Patient has paradoxical effect, she is hyperalert and is up all night. Acetaminophen Diarrhea Chlorhexidine Rash Comment:Rash/burning Ciprofloxacin Other: See Comments Comment:Family history of the allergy Clindamycin Anaphylaxis Ibuprofen Diarrhea Lactose Diarrhea Peanut Butter Flavor Diarrhea, GI Upset Penicillins Other: See Comments Comment:06/29/23: Extensive family history of multiple antibiotic allergies including penicillins. Report multiple family members having anaphylaxis reactions. Red Dye Intolerance Tramadol Other: See Comments Comment:Blurred vision Zithromax [Azithrom* Diarrhea Family History Reviewed Including Cardiac Diseases, Psychiatric Diseases, AND Substance Abuse Problem: Fibromyalgia Relation: Mother Age of Onset: (Not Specified) Problem: Cervical Cancer Relation: Mother Age of Onset: (Not Specified) Problem: other (diverticulitis) Relation: Mother Age of Onset: (Not Specified) Problem: Kidney Disease Relation: Father Age of Onset: (Not Specified) Problem: other (Gastroparesis) Relation: Sister Age of Onset: (Not Specified) Problem: Kidney stones Relation: Brother Age of Onset: (Not Specified) Problem: No Known Problems Relation: Brother Age of Onset: (Not Specified) Problem: No Known Problems Relation: Brother Age of Onset: (Not Specified) Problem: Bipolar disorder Relation: Maternal Grandmother Age of Onset: (Not Specified) Problem: other (endometriosis) Relation: Maternal Grandmother Age of Onset: (Not Specified) Problem: Heart Attack Relation: Maternal Grandfather Age of Onset: (Not Specified) Problem: other (MSA-muscle system atrophy) Relation: Maternal Grandfather Age of Onset: (Not Specified) Problem: Neuropathy Relation: Paternal Grandmother Age of Onset: (Not Specified) Problem: Fibromyalgia Relation: Paternal Grandmother Age of Onset: (Not Specified) Problem: Depression Relation: Paternal Grandmother Age of Onset: (Not Specified) Problem: Hypertension Relation: Paternal Grandmother Age of Onset: (Not Specified) Problem: Heart Attack Relation: Paternal Grandfather Age of Onset: (Not Specified) Comment: Several Problem: Diabetes Relation: Paternal Grandfather Age of Onset: (Not Specified) Comment: Type 2 Problem: Hypertension Relation: Paternal Grandfather Age of Onset: (Not Specified) Problem: Kidney stones Relation: Paternal Grandfather Age of Onset: (Not Specified) Problem: other (lupus) Relation: Maternal Aunt Age of Onset: (Not Specified) Problem: other (endometriosis) Relation: Maternal Aunt Age of Onset: (Not Specified) Social History Tobacco Use Smoking status: Never Passive exposure: Never Smokeless tobacco: Never Vaping Use Vaping status: Never Used Alcohol use: Never Drug use: Never Active Ambulatory Problems Nausea AND vomiting Date Noted: 10/31/2021 Diarrhea Date Noted: 10/31/2021 Abdominal pain Date Noted: 10/31/2021 Adjustment disorder Date Noted: 10/31/2021 Irregular menstrual cycle Date Noted: 05/01/2022 Depression Date Noted: 07/01/2023 Anxiety Date Noted: 07/01/2023 Chronic migraine w/o aura w/o status migrainosus, not intractable Date Noted: 01/22/2024 Regular astigmatism of both eyes Date Noted: 01/22/2024 Encounter for supervision of normal in first trimester Date Noted: 09/16/2024 Irritable bowel syndrome with both constipation and diarrhea Date Noted: 09/16/2024 Small intestinal bacterial overgrowth (SIBO) Date Noted: 09/16/2024 Lactose intolerance Date Noted: 09/16/2024 Resolved Ambulatory Problems Abdominal pain of unknown etiology Date Noted: 10/31/2021 Colitis Date Noted: 06/29/2023 High anion gap metabolic acidosis Date Noted: 07/04/2023 Ketosis (HCC) Date Noted: 07/04/2023 Past Medical History: No date: Anxiety and depression No date: History of IBS Review of Systems Constitutional: Negative. HENT: Negative. Eyes: Negative. Respiratory: Negative. Cardiovascular: Negative. Gastrointestinal: Negative. Endocrine: Negative. Genitourinary: Positive for dysuria and frequency. Negative for vaginal discharge. Musculoskeletal: Negative. Skin: Negative. Neurological: Negati (more content not included)...[facility] 10-07-2024 History of Present illness Narrative* Yanci Lewis APRN.[facility] - 10/07/2024 8:32 AM EST This note was created using NoteWriter. Subjective Rhonda Cohen is a 19 year old female. HPI by patient: Rhonda Cohen is a 19 year old presenting to the office with the complaint of uti symptoms. Started approximately 1 week ago. Associated symptoms include pain after urination and frequency. Is 13 weeks . Having round ligament pain. Denies fever, chills, and vaginal symptoms. OTC not used. No antibiotic use in the last 60 days. ALLERGIES Atarax [Hydroxyzine] Other: See Comments Comment:Patient has paradoxical effect, she is hyperalert and is up all night. Acetaminophen Diarrhea Chlorhexidine Rash Comment:Rash/burning Ciprofloxacin Other: See Comments Comment:Family history of the allergy Clindamycin Anaphylaxis Ibuprofen Diarrhea Lactose Diarrhea Peanut Butter Flavor Diarrhea, GI Upset Penicillins Other: See Comments Comment:06/29/23: Extensive family history of multiple antibiotic allergies including penicillins. Report multiple family members having anaphylaxis reactions. Red Dye Intolerance Tramadol Other: See Comments Comment:Blurred vision Zithromax [Azithrom* Diarrhea Family History Reviewed Including Cardiac Diseases, Psychiatric Diseases, & Substance Abuse Problem: Fibromyalgia Relation: Mother Age of Onset: (Not Specified) Problem: Cervical Cancer Relation: Mother Age of Onset: (Not Specified) Problem: other (diverticulitis) Relation: Mother Age of Onset: (Not Specified) Problem: Kidney Disease Relation: Father Age of Onset: (Not Specified) Problem: other (Gastroparesis) Relation: Sister Age of Onset: (Not Specified) Problem: Kidney stones Relation: Brother Age of Onset: (Not Specified) Problem: No Known Problems Relation: Brother Age of Onset: (Not Specified) Problem: No Known Problems Relation: Brother Age of Onset: (Not Specified) Problem: Bipolar disorder Relation: Maternal Grandmother Age of Onset: (Not Specified) Problem: other (endometriosis) Relation: Maternal Grandmother Age of Onset: (Not Specified) Problem: Heart Attack Relation: Maternal Grandfather Age of Onset: (Not Specified) Problem: other (MSA-muscle system atrophy) Relation: Maternal Grandfather Age of Onset: (Not Specified) Problem: Neuropathy Relation: Paternal Grandmother Age of Onset: (Not Specified) Problem: Fibromyalgia Relation: Paternal Grandmother Age of Onset: (Not Specified) Problem: Depression Relation: Paternal Grandmother Age of Onset: (Not Specified) Problem: Hypertension Relation: Paternal Grandmother Age of Onset: (Not Specified) Problem: Heart Attack Relation: Paternal Grandfather Age of Onset: (Not Specified) Comment: Several Problem: Diabetes Relation: Paternal Grandfather Age of Onset: (Not Specified) Comment: Type 2 Problem: Hypertension Relation: Paternal Grandfather Age of Onset: (Not Specified) Problem: Kidney stones Relation: Paternal Grandfather Age of Onset: (Not Specified) Problem: other (lupus) Relation: Maternal Aunt Age of Onset: (Not Specified) Problem: other (endometriosis) Relation: Maternal Aunt Age of Onset: (Not Specified) Social History Tobacco Use Smoking status: Never Passive exposure: Never Smokeless tobacco: Never Vaping Use Vaping status: Never Used Alcohol use: Never Drug use: Never Active Ambulatory Problems Nausea & vomiting Date Noted: 10/31/2021 Diarrhea Date Noted: 10/31/2021 Abdominal pain Date Noted: 10/31/2021 Adjustment disorder Date Noted: 10/31/2021 Irregular menstrual cycle Date Noted: 05/01/2022 Depression Date Noted: 07/01/2023 Anxiety Date Noted: 07/01/2023 Chronic migraine w/o aura w/o status migrainosus, not intractable Date Noted: 01/22/2024 Regular astigmatism of both eyes Date Noted: 01/22/2024 Encounter for supervision of normal in first trimester Date Noted: 09/16/2024 Irritable bowel syndrome with both constipation and diarrhea Date Noted: 09/16/2024 Small intestinal bacterial overgrowth (SIBO) Date Noted: 09/16/2024 Lactose intolerance Date Noted: 09/16/2024 Resolved Ambulatory Problems Abdominal pain of unknown etiology Date Noted: 10/31/2021 Colitis Date Noted: 06/29/2023 High anion gap metabolic acidosis Date Noted: 07/04/2023 Ketosis (HCC) Date Noted: 07/04/2023 Past Medical History: No date: Anxiety and depression No date: History of IBS Review of Systems Constitutional: Negative. HENT: Negative. Eyes: Negative. Respiratory: Negative. Cardiovascular: Negative. Gastrointestinal: Negative. Endocrine: Negative. Genitourinary: Positive for dysuria and frequency. Negative for vaginal discharge. Musculoskeletal: Negative. Skin: Negative. Neurological: Negative. Hematological: Negative. Objective BP 96/57 Pulse 105 Resp 16 Wt 60.7 kg (133 lb 14.9 oz) LMP 07/08/2024 SpO2 97% BMI 22.99 kg/m Physical Exam Vitals reviewed. Constitutional: General: She is not in acute distress. Appearance: She is not ill-appearing, toxic-appearing or diaphoretic. Cardiovascular: Rate and Rhythm: Regular rhythm. Tachycardia present. Pulmonary: Effort: Pulmonary effort is normal. Abdominal: General: Bowel sounds are normal. Palpations: Abdomen is soft. Tenderness: There is abdominal tenderness in the right lower quadrant, suprapubic area and left lower quadrant. There is no right CVA tenderness, left CVA tenderness, guarding or rebound. Neurological: Mental Status: She is alert. Assessment and Plan (R39.9) Urinary tract infection symptoms (primary encounter diagnosis) Plan: BACTERIAL CULTURE, URINE UA doesn't look infectious. Will send culture. -Increase fluids. Focus on clears. -Decrease sugary drink intake. Minimize caffeine. -Wipe front to back. No tight clothing. No bubble baths. -Results will be released to [facility] unless there is a need for a change in medication. -If no improvement in 3-5 days please be re-seen with primary care. -Be seen immediately or go to the ER with worsening/warning symptoms. Warning symptoms include: chills, severe flank pain, severe abdominal/pelvic pain, fevers 101 or higher, chest pain, and respiratory distress. The patient will pursue further outpatient evaluation with the primary care physician or another Urgent Care/Express Care as outlined in the after visit summary. The patient is agreeable to this planof care and follow-up instructions have been explained in detail. The patient has received these instructions in written format and have expressed an understanding of the after visit summary. Medical Decision Making: Level: 4 - Moderate I spent a total of 20 minutes on the date of the service which included preparing to see the patient, [id number] patient care, completing clinical documentation, obtaining and/or reviewing separately obtained history, performing a medically appropriate examination, counseling and educating the pat ient/family/caregiver, and ordering medications, tests, or procedures. documented in this encounterGreen Cross Hospital01-30-2025 Telephone encounter Note * Telephone Encounter - Nano Looney RN - 10/06/2024 10:01 AM EST Patient notified and voiced understanding. Nano Looney RN [facility]01-30-2025 Miscellaneous Notes* Telephone Encounter - Nano Looney RN - 10/06/2024 10:01 AM EST Patient notified and voiced understanding. Nano Looney RN * Telephone Encounter - Swati Salguero APRN.CNM - 10/06/2024 8:56 AM EST If patient is concerned over leg pain that continues or gets severe, warm to touch, red, she shouldgo to ED for evaluation.Swati Salguero APRN.CNM * Telephone Encounter - Jasmin Soni RN - 10/06/2024 8:40 AM EST 12w6d Patient called the office regarding her message. Rates her pain a 2-3. Pain is constant and feels like growing pains. Patient is allergic to Acetaminophen. Has tried heat and increasing her water intake. Pain is not subsiding. No vaginal bleeding or anything recently in the vagina. Please advise inJ's absence. Jasmin Soni RN documented in this encounterGreen Cross Hospital01-30-2025 Telephone encounter Note * Telephone Encounter - Swati Salguero APRN.CNM - 10/06/2024 8:56 AM EST If patient is concerned over leg pain that continues or gets severe, warm to touch, red, she shouldgo to ED for evaluation.Swati Salguero APRN.CNM [facility] Work Phone: [phone] 121-521101-30-2025 Telephone encounter Note* Telephone Encounter - Jasmin Soni RN - 10/06/2024 8:40 AM EST 12w6d Patient called the office regarding her message. Rates her pain a 2-3. Pain is constant and feels like growing pains. Patient is allergic to Acetaminophen. Has tried heat and increasing her water intake. Pain is not subsiding. No vaginal bleeding or anything recently in the vagina. Please advise [facility]'s absence. Jasmin Soni, UMAIR [facility]01-27-2025 Progress note* Quick Notes - Vera Hatch APRN.CNM - 10/03/2024 9:34 AM EST LEONARDO-S: Rhonda Cohen is a 19 year old female who presents at 12w3d with FELIPE:04/14/2025, by Last Menstrual Period for a routine visit. Denies headache, visual changes, chest pain, shortness of breath, vaginal bleeding, leakage of fluid, or dysuria. Having round ligament pain O: See flow sheet Gen: No apparent distress Abd: Gravid, nontender ASSESSMENT/PLAN: 1. Encounter for supervision of normal first in second trimester - PN labs today - [id number] PLUS -Continue PNV -Start ASA 81mg PO once daily -Anatomy US ordered 2. 12 weeks gestation of 3. Anxiety -coping, no medication 4. Nausea and vomiting, unspecified vomiting type -pepcid and reglan at this time 5. Constipation, unspecified constipation type -Reviewed diet changes, increase fiber, hydration -Colace 100mg PO BID PTL precautions reviewed and when to call RTO in 4 weeks Vera Hatch APRN.CNM [facility]01-27-2025 Miscellaneous Notes* Quick Notes - Vera Hatch APRN.CNM - 10/03/2024 9:34 AM EST LEONARDO-S: Rhonda Cohen is a 19 year old female who presents at 12w3d with FELIPE:04/14/2025, by Last Menstrual Period for a routine visit. Denies headache, visual changes, chest pain, shortness of breath, vaginal bleeding, leakage of fluid, or dysuria. Having round ligament pain O: See flow sheet Gen: No apparent distress Abd: Gravid, nontender ASSESSMENT/PLAN: 1. Encounter for supervision of normal first in second trimester - PN labs today - [id number] PLUS -Continue PNV -Start ASA 81mg PO once daily -Anatomy US ordered 2. 12 weeks gestation of 3. Anxiety -coping, no medication 4. Nausea and vomiting, unspecified vomiting type -pepcid and reglan at this time 5. Constipation, unspecified constipation type -Reviewed diet changes, increase fiber, hydration -Colace 100mg PO BID PTL precautions reviewed and when to call RTO in 4 weeks Vera Hatch APRN.CNM documented in this encounterGreen Cross Hospital01-27-2025 Instructions* Patient Instructions* Vera Hatch APRN.CNM - 10/03/2024 8:39 AM EST [place]-Mama [employer] Smarty Pants Ritual Methylated folate Ok to start Aspirin 81mg by mouth once daily to prevent preeclampsia SEQUENTIAL SCREENINGS [facility] offers sequential screenings for women who are interested in screenings for chromosomal abnormalities and certain defects during a . The sequential screen combinesultrasound and blood tests to determine the risk of chromosomal abnormalities, including Down's Syndrome (Trisomy 21) and Trisomy 18, as well as open neural tube defects including spina bifida. Ultrasound examination is performed between 11 weeks and 13 weeks gestational age. Blood tests are drawn after the ultrasound and again later in the between 15 and 21 weeks gestational age. Please let your physician know if you are interested in this testing. It will require an appointment withour platform power technician. This is not an ultrasound performed by a physician in our office during a routine visit. SIGNS AND SYMPTOMS OF LABOR 1. Contractions every 10 minutes or more often 2. Clear, pink, or brownish fluid (water) leaking from vagina 3. Feeling that baby is pushing down, pressure 4. Low, dull backache 5. Cramps that feel like a period 6. Cramps with or without diarrhea If you notice any of the above symptoms, contact our office at [phone] and ask to speak with anurse. After hours, you can call doctors registry at [phone] OR call [facility] at [phone] ask to have the doctor dehydration plant operator paged. If you consider this an emergency, dial [phone] or go to your nearest emergency department. NEED HELP? Are you dealing with a violent or abusive relationship? Are you a victim of rape or sexual assult? Call [facility] ([place]) 24 hour Crisis Hotline: 876.896.2745 or 556-463-1726. MANUAL Your Guide to a Healthy manual is now on-line. Visit [email or web address] to download your free copy documented in this encounterGreen Cross Hospital01-10-2025 NoteHNO ID: [id number] Author: THOMAS COHEN MA Service: ? Author Type: Choker Setter Type: Progress Notes Filed: 09/26/2024 13:02 Note Text: OB point of care ultrasound was performed. See imaging tab for details. Thomas Cohen [facility]01-10-2025 History of Present illness Narrative* Thomas Cohen MA - 09/16/2024 8:36 AM EST OB point of care ultrasound was performed. See imaging tab for details. Thomas Cohen MA Vera Vaughn APRN.CNM - 09/14/2024 12:00 PM EST INITIAL OB ASSESSMENT HPI: Rhonda is a 19 year old White Female here to establish Obstetrical Care. Patient's last menstrual period was 07/08/2024. from OB Dating Form. was unplanned but accepted. Menses were irregular every 1-2 months, would get them twice in a month. LMP 07/08/24. Complaints: Abdominal Cramping/ Stomach pain-sometimes gets better when Pt eats, but sometimes makes it worse. Nausea most of the time, no emesis. OB History T0 L0 SAB0 IAB0 Ectopic0 Multiple0 Live Births0 Previous history: Prior : never History of 4th degree laceration: Perineal Laceration, 3rd or 4th degree N/A History of shoulder dystocia: Shoulder Dystocia N/A History of Hypertensive disorders including pre-eclampsia or gestational hypertension: Gestational Hypertension N/A Preeclampsia N/A History of gestational diabetes: Diabetes in N/A Patient's Risk Screening for delivery: Have you had a prior corona between 20w and 36w6d? No How many pregnancies have you had before? 0 Did you have a previous baby with a GBS Infection? No Please select all that apply for any prior : N/A MEDICAL/PSYCHOSOCIAL HISTORY: Severe bleeding with delivery N/A Thyroid Disease N/A Gestational Hypertension N/A Preeclampsia N/A Diabetes in N/A BMI 23.17 kg/(m^2) Last Pap: History of abnormal pap: Abnormal Pap N/A Prior treatment for cervical dysplasia: none. Last HPV: History of STDs: None Partner History of STDs: None Did you have a partner with Herpes? No Tobacco use: No E-Cigarette/Vaping Use: No Caffeine use: Yes- , approximately 1 to 2 weekly Drug use: No Alcohol use: No Multivitamin with Folic acid: Yes Would refuse blood transfusion if medically necessary: No Social Needs: How often does this describe you? I don't have enough money to pay my bills: Never Within the past 12 months, have you worried that your food would run out before you had money to buy more? Never In the past 12 months, has lack of reliable transportation kept you from going to medical appointments or work, or from getting things needed for daily living? Never In the past 12 months, have you had any concerns about having a place to live, or about the condition or quality of your housing? Never Would you like more information on any of the following (please check all that apply)? Centering (group care classes); High School Home Economics Teacher; Group Underwriter care Social History: Do you have any history of depression, anxiety, PTSD, or other mood problems? Yes Do you have a history of abuse or trauma that may impact your experience? No Are you currently employed? Yes Depression/Anxiety Screening: denies symptoms of depression. OB Depression and Anxiety Screening- This Encounter (since 09/15/2024) None Genetic Screening: Partner present: No Patient verbalized knowledge of partner family health history: No Do you or your partner have any personal or family history of defects not previously discussed: No Do you have history of a complicated by anomaly, genetic condition, or demise: No Preeclampsia Risk Screening: Screening for prevention of preeclampsia: High risk factors: None Moderate risk ractors: Nulliparity and Family history of pre-eclampsia (mother or sister) OB Risk Screening: Marital Status: Partner: Name: Dilshad Cano Age: 24 Occupation: Retail Representative Gender: Male PAST MEDICAL HISTORY Diagnosis Date Anxiety and depression History of IBS PAST SURGICAL HISTORY Procedure Laterality Date COLONOSCOPY SCREENING EGD W/O [facility] SPEC VARICIES INJ 07/06/2023 Current Outpatient Medications Medication Sig Dispense Refill omeprazole (PRILOSEC) 40 mg capsule Take 1 capsule by mouth once daily. 30 capsule 2 fexofenadine (MELISA) 180 mg tablet Take 1 tablet by mouth four times daily. 100 tablet 2 diphenhydrAMINE (BENADRYL) 25 mg capsule Take 25 mg by mouth at bedtime as needed for cold/allergy symptoms. vit no.124/iron/folic ( VITAMIN ORAL) Take 2 Pieces by mouth once daily. phenazopyridine (PYRIDIUM) 200 mg tablet Take 1 tablet by mouth every 8 hours as needed. (Patient not taking: Reported on 09/14/2024) 6 tablet 0 gabapentin (NEURONTIN) 300 mg capsule Take 1 capsule by mouth as directed for 60 days. (Patient nottaking: Reported on 09/14/2024) 1 capsule 1 fluticasone (FLONASE ALLERGY RELIEF) 50 mcg/actuation nasal spray Use 1 [place] in each nostril once daily. (Patient not taking: Reported on 09/14/2024) 9.9 mL 0 Zofxurerhumoijz-Dootfdupi-TI (BROMFED DM) 2-30-10 mg/5 mL syrup Take 5 mL by mouth four times a dayas needed. (Patient not taking: Reported on 09/14/2024) 118 mL 0 hyoscyamine sublingual (LEVSIN/SL) 0.125 mg Dissolve 1 tablet under the tongue every 4 hours as needed (abdominlal pain). (Patient not taking: Reported on 09/14/2024) 120 tablet 2 cholecalciferol, Vitamin D3, (VITAMIN D3) 1,250 mcg (50,000 unit) cap capsule Take 1 capsule by mouth one time a week. (Patient not taking: Reported on 09/14/2024) 12 capsule 1 DULoxetine (CYMBALTA) 20 mg capsule Take 1 capsule by mouth once daily. (Patient not taking: Reported on 09/14/2024) 90 capsule 0 peppermint oil (IBGARD) 90 mg CECX Take 1 capsule by mouth once daily as needed (INTESTINAL UPSET).(Patient not taking: Reported on 09/14/2024) 48 capsule 0 No current facility-administered medications for this visit. Allergies As of Date: 09/16/2024 Allergen Noted Reaction ATARAX [HYDROXYZINE] 06/30/2023 Other: See Comments ACETAMINOPHEN 05/27/2022 Diarrhea CHLORHEXIDINE 06/29/2023 Rash CIPROFLOXACIN 06/29/2023 Other: See Comments CLINDAMYCIN 06/29/2023 Anaphylaxis IBUPROFEN 05/27/2022 Diarrhea LACTOSE 11/02/2021 Diarrhea PEANUT BUTTER FLAVOR 04/29/2023 Diarrhea and GI Upset PENICILLINS 01/08/2019 Other: See Comments RED DYE 07/05/2023 Intolerance TRAMADOL 09/11/2023 Other: See Comments ZITHROMAX [AZITHROMYCIN] 01/27/2024 Diarrhea Fully Assessed 09/16/2024 Does patient have penicillin allergy: Yes, plan for allergy testing. Family history of severe PCN Allergy. Consult in place after discussion. REVIEW OF SYSTEMS: GENERAL: Negative for: Fever or Chills HEENT: Negative for: Headache, Impaired Vision, Ringing in Ears, Nosebleeds NECK: Negative for: Swelling, Pain, Stiffness RESPIRATORY: Negative for: Cough, Shortness of breath, Wheezing GASTROINTESTINAL: Negative for: Heartburn, Constipation, Diarrhea, Blood in stool, Vomiting MUSCULOSKELETAL: Negative for: Muscle or joint pain, stiffness, Joint swelling NEUROLOGIC/PSYCHIATRIC: Negative for: Weakness, Paralysis, Numbness, Tingling, Tremor, Anxiety, Depression, Memory loss SKIN: Negative for: Rash, Itching GENITOURINARY: Negative for: vaginal itching, vaginal discharge, hematuria or dysuria SENSITIVE EXAM: The sensitive examination was discussed with the Patient or Patient's Authorized Inventory Planner. As applicable, any other physician, advance practice provider, medical student, or other health professional student that will be observing or involved in the sensitive examination for educational or training purposes was discussed with the Patient or Authorized Inventory Planner. The Patient or Authorized Inventory Planner has agreed to proceed with the sensitive examination. (Sensitive examination includes inspection and/or palpation of the breasts, pelvis, prostate and anorectal regions). PHYSICAL EXAM: BP 98/58 Ht 5' 4 (1.63m) Wt 135 lb (61.2kg) LMP 07/08/2024 BMI 23.16 kg/(m^2). GENERAL: pleasant in no apparent distress DERMATOLOGY: Normal, without lesions, non-icteric, and non-hirsute NECK: Supple, full range of motion, no adenopathy, and thyroid normal CHEST: Normal inspiratory effort BREAST: soft, non-tender, symmetric, no dominant mass, normal nipple-areolar complex, no lymphadenopathy, and no nipple discharge ABDOMEN: soft, non-tender, and no masses NEURO: alert and oriented x3,exam grossly non-focal PELVIS: External genitalia normal without lesions. Perineal body intact. No vaginal or cervical lesions. Cervix closed. Uterus 10 week size. No adnexal masses or tenderness. Clinical Pelvimetry: Pelvimetry clinically assessed as adequate Limited OB ultrasound exam: single intrauterine , positive cardiac activity No formal US today LMP 07/08/24 GA by LMP 7w0d GA by US 6w3d FELIPE:04/14/25 ASSESSMENT: 19 year old at 10w0d wks gestational age PLAN: 1) Patient oriented to practice. Patient given new OB orientation folder. Discussed nutrition, folic acid supplementation, dietary guidelines, exercise, smoking, alcohol, caffeine, and drug use. Discussed gestational weight gain guidelines. Discussed routine OB labs including STD/HIV. Discussed hemoglobin electrophoresis. Patient: Accepts 2) Screening: Hemoglobin A1C: ordered Baby Aspirin: The patient has been counseled about the potential benefits of low dose aspirin in and our recommendation that this be offered to all patients, regardless of whether they meet the high risk criteria specified above. She Accepts Aneuploidy Screening: Discussed aneuploidy screening, nuchal translucency/first trimester early anatomy ultrasound and NIPT. The risks/benefits and limitations of NIPT/aneuploidy screening were reviewed including the potential for false negative and false positive results. The availability of genetic counseling was reviewed. Information on aneuploidy screening was provided. The patient is uncertain. She will call back if she wants to proceed with screening. Pt aware of timing. Myriad Carrier Screening: Discussed myriad carrier screening. We discussed the availability of professional-society guided carrier screening and reviewed the conditions screened and limitations of screening. The availability of genetic counseling was reviewed. Information on carrier screening was provided. The patient to check with insurance. 3) Patient offered option of Virtual Visits. Patient prefers in person visits. Follow up in 4 weeks or sooner prn. Vera Hatch APRN.CNM [facility] NoteHNO ID: [id number] Author: VERA HATCH APRN.CNM Service: ? Author Type: Group Underwriter Type: Progress Notes Filed: 09/26/2024 13:02 Note Text: INITIAL OB ASSESSMENT HPI: Rhonda is a 19 year old White Female here to establish Obstetrical Care. Patient's last menstrual period was 07/08/2024. from OB Dating Form. was unplanned but accepted. Menses were irregular every 1-2 months, would get them twice in a month. LMP 07/08/24. Complaints: Abdominal Cramping/ Stomach pain-sometimes gets better when Pt eats, but sometimes makes it worse. Nausea most of the time, no emesis. OB History T0 L0 SAB0 IAB0 Ectopic0 Multiple0 Live Births0 Previous history: Prior : never History of 4th degree laceration: Perineal Laceration, 3rd or 4th degree N/A History of shoulder dystocia: Shoulder Dystocia N/A History of Hypertensive disorders including pre-eclampsia or gestational hypertension: Gestational Hypertension N/A Preeclampsia N/A History of gestational diabetes: Diabetes in N/A Patient's Risk Screening for delivery: Have you had a prior corona between 20w and 36w6d? No How many pregnancies have you had before? 0 Did you have a previous baby with a GBS Infection? No Please select all that apply for any prior : N/A MEDICAL/PSYCHOSOCIAL HISTORY: Severe bleeding with delivery N/A Thyroid Disease N/A Gestational Hypertension N/A Preeclampsia N/A Diabetes in N/A BMI 23.17 kg/(m2) Last Pap: History of abnormal pap: Abnormal Pap N/A Prior treatment for cervical dysplasia: none. Last HPV: History of STDs: None Partner History of STDs: None Did you have a partner with Herpes? No Tobacco use: No E-Cigarette/Vaping Use: No Caffeine use: Yes- , approximately 1 to 2 weekly Drug use: No Alcohol use: No Multivitamin with Folic acid: Yes Would refuse blood transfusion if medically necessary: No Social Needs: How often does this describe you? I don't have enough money to pay my bills: Never Within the past 12 months, have you worried that your food would run out before you had money to buy more? Never In the past 12 months, has lack of reliable transportation kept you from going to medical appointments or work, or from getting things needed for daily living? Never In the past 12 months, have you had any concerns about having a place to live, or about the condition or quality of your housing? Never Would you like more information on any of the following (please check all that apply)? Centering (group care classes); High School Home Economics Teacher; Group Underwriter care Social History: Do you have any history of depression, anxiety, PTSD, or other mood problems? Yes Do you have a history of abuse or trauma that may impact your experience? No Are you currently employed? Yes Depression/Anxiety Screening: denies symptoms of depression. OB Depression and Anxiety Screening- This Encounter (since 09/15/2024) None Genetic Screening: Partner present: No Patient verbalized knowledge of partner family health history: No Do you or your partner have any personal or family history of defects not previously discussed: No Do you have history of a complicated by anomaly, genetic condition, or demise: No Preeclampsia Risk Screening: Screening for prevention of preeclampsia: High risk factors: None Moderate risk ractors: Nulliparity and Family history of pre-eclampsia (mother or sister) OB Risk Screening: Marital Status: Partner: Name: Dilshad Cano Age: 24 Occupation: Retail Representative Gender: Male PAST MEDICAL HISTORY Diagnosis Date Anxiety and depression History of IBS PAST SURGICAL HISTORY Procedure Laterality Date COLONOSCOPY SCREENING EGD W/O BRSH SPEC VARICIES INJ 07/06/2023 Current Outpatient Medications Medication Sig Dispense Refill omeprazole (PRILOSEC) 40 mg capsule Take 1 capsule by mouth once daily. 30 capsule 2 fexofenadine (MELISA) 180 mg tablet Take 1 tablet by mouth four times daily. 100 tablet 2 diphenhydrAMINE (BENADRYL) 25 mg capsule Take 25 mg by mouth at bedtime as needed for cold/allergy symptoms. vit no.124/iron/folic ( VITAMIN ORAL) Take 2 Pieces by mouth once daily. phenazopyridine (PYRIDIUM) 200 mg tablet Take 1 tablet by mouth every 8 hours as needed. (Patient not taking: Reported on 09/14/2024) 6 tablet 0 gabapentin (NEURONTIN) 300 mg capsule Take 1 capsule by mouth as directed for 60 days. (Patient not taking: Reported on 09/14/2024) 1 capsule 1 fluticasone (FLONASE ALLERGY RELIEF) 50 mcg/actuation nasal spray Use 1 [place] in each nostril once daily. (Patient not taking: Reported on 09/14/2024) 9.9 mL 0 Pedincfwgkycyob-Bmgneeypy-IP (BROMFED DM) 2-30-10 mg/5 mL syrup Take 5 mL by mouth four times a day as needed. (Patient not taking: Reported (more content not included)...[facility]01-08-2025 Instructions* Patient Instructions* Vera Hatch APRN.CNM - 09/14/2024 12:00 PM EST Please select the following link to access the [facility] Your Guide to a Healthy . [email or web address] 1) Stop vitamin, take the folic acid at this time 2) Start Pepcid daily 3) Take Vitamin B6 and Unisom daily, get this over the counter 4) Take Reglan as needed for nausea 5) Start Colace Nausea and Vomitin) Vitamin B6 50 mg by mouth twice daily. Take this daily until approximately 14 weeks for prevention. 2) Unisom 1/2 tablet by mouth at bedtime. May increase to full tablet if needed. If no improvement in nausea may up to a full tablet every 8 hours as needed. Metoclopramide September 07, 2019 This sheet talks about exposure to metoclopramide in a and while . This information should not take the place of medical care and advice from your healthcare provider. What is metoclopramide? Metoclopramide is a medication that has been used to treat gastrointestinal motility issues, for nausea and vomiting caused by surgical operations, chemotherapy, or , and to help with . This medication has been sold under band names such as Reglan , Maxolon or Metozolv ODT . Can taking metoclopramide made it harder for me to get ? There have been some reports of menstrual problems and galactorrhea (milk production that is not related to ) among women who have taken metoclopramide. Women who have these side effectsmight have a harder time becoming . However, studies have not suggested that metoclopramidewould affect fertility (a person s ability to get ). I have been taking metoclopramide and just found out I am . Should I stop? You should speak with your healthcare provider before making changes in this medication. If you areexperiencing nausea and vomiting or gastrointestinal problems that are affecting your ability to function, speak with your healthcare provider about which medication would be best for you and your baby. For more information on nausea and vomiting in , please see the MotherToBaby fact sheeton Nausea and Vomiting in at https://mothertobaby.org/fact-sheets/ypckcm-msxubfhi-uvhxcabfm-nvp/pdf/. Can metoclopramide increase the chance for a miscarriage? Miscarriage can occur in any . A small number of studies did not find an increased chance for miscarriage among women taking metoclopramide. Can taking metoclopramide during cause defects? In every , a woman starts out with a 3-5% chance of having a baby with a defect. This is called her background risk. Current information does not suggest an increased chance for defects when metoclopramide is taken early in . Can taking metoclopramide during cause other complications? For the woman, maybe. There are case reports of women who developed severe side effects while taking metoclopramide during which required them to be admitted to a hospital for treatment. Inthese reports, 2 women developed movement disorders (known as tardive dyskinesia) and 2 other womendeveloped intermittent porphyria (a condition that affects the body s ability to make red blood cells) which led to psychiatric conditions. All reports showed that these women got well with treatmentand went on to have healthy newborns. These reports do not tell us how often this may occur during and more studies are needed. If you are taking metoclopramide tell your healthcare provider about any changes in your mood or any movement disorders such as lip smacking, jerky eye movements, or jerky limb movements. Can I breastfeed while taking metoclopramide? Most likely. There is limited information on the use of metoclopramide during . Metoclopramide can cross into the breast milk. While most reports have not listed any side effects in the nursing infants, it has not been well studied. If your baby was to experience side effects, it wouldmost likely be stomach discomfort and gas. If you are worried about any symptoms the baby has, contact the child s healthcare provider. Metoclopramide use while might increase your chance for post- depression. Any changes in your mood should be reported to your healthcare provider. Is it true that metoclopramide can increase the amount of milk that I make? There are some small studies that looked at whether metoclopramide increases or causes milk production. One study found that metoclopramide use could slightly increase the amount of milk produced while a similar study found that it did not increase milk production. If you are having trouble with milk production, working with a philatelic consultant may be the most helpful in increasing your breastmilk production. Be sure to talk to your health care provider about all of your questions. What if the father of the baby takes metoclopramide? There is no evidence that suggests that a man s metoclopramide use would cause any problems during his partner s . In general, medications that the father takes do not increase risk to a . For more information, please see the [employer] fact sheet on Paternal Exposures at https:/ /[employer].org/fact-sheets/yilfvfnz-hfmydukdm-munwcmgub/pdf/. Low Dose Aspirin This sheet talks about exposure to low dose aspirin in and while . This information should not take the place of medical care and advice from your healthcare provider.\ What is low dose aspirin? Aspirin is also known as acetylsalicylic acid. It is a common prescription and linl-nhr-igjnmxe medication similar to other non-steroidal inflammatory drugs (NSAIDs) like ibuprofen (Motrin ) and naproxen (Aleve ). Aspirin reduces inflammation, fever, and pain. Aspirin can prevent blood clots, which can make it useful in treating or preventing conditions like heart attacks and strokes. Low dose aspirin ranges from 60 to 150 mg daily, but the usual dose taken during to treator prevent certain conditions is 81 mg daily.Regular strength and high strength aspirin and other NSAIDs are NOT preferred pain relievers during .Sometimes when people find out they are , they think about changing how they take their medication, or stopping their medication altogether. However, it is important to talk with your healthcare providers before making any changes to how you take this medication. Your healthcare providers can talk with you about the benefits of treating your condition and the risks of untreated illness during . I take low dose aspirin. Can it make it harder for me to get ? Low dose aspirin is not expected to make it harder to get . A study that included people who had 1 or 2 documented losses then asked to take daily low dose aspirin found that taking low dose aspirin at least 4 days a week increased the chance of a . Does taking low dose aspirin increase the chance for miscarriage? Miscarriage can occur in any . Taking low doses of aspirin is not thought to increase the chance of miscarriage. Some studies have shown that taking low dose aspirin before may help lower the chance of miscarriage in some people who have had one or more miscarriages before 20 weeks of . These findings are similar to studies that showed improved outcomes in people undergoing assisted reproductive technologies (fertility treatments) and were treated with low dose aspirin prior to implantation of the fertilized egg into the uterus. Does taking low dose aspirin increase the chance of defects? Every starts out with a 3-5% chance of having a defect. This is called the background risk. Studies on the use of low dose aspirin during have not found a higher chance of defects. Does taking low dose aspirin in increase the chance of other related problems? Taking low dose aspirin as directed by a healthcare provider is not expected to cause other problems. Studies have shown that low dose aspirin might improve outcomes in some people by increasing blood flow to and reducing inflammation or swelling in the uterus. Studies have also shown that low dose aspirin might lower the chances for preeclampsia (dangerously high blood pressure and complications) in people who are at high risk for this condition. However, people who are should only take low dose aspirin if their healthcare provider recommends it. Does taking low dose aspirin in affect future behavior or learning for the child? There are not many studies about long-term effects for children exposed to low dose aspirin during . However, studies have not found an increased chance for problems with physical or mental development in infants at 18 months of age. A study that looked at children up to 5 years of age who were born very early (before 33 weeks) and who were exposed to low dose aspirin during did not find an effect on their learning or behavior compared to children who were not exposed to low dose aspirin during . while taking low dose aspirin: The occasional use of low dose aspirin (75 mg daily to below 300 mg daily) is not expected to increase risks to a infant. Only small amounts of low dose aspirin enter the breast milk and adverse effects have not been reported in breastfed newborns or older infants. Healthcare providers might recommend low dose aspirin in some people during to treat certain medical conditions. However, regular strength aspirin (over 325 mg) is not preferred during . Aspirin eliminates from an s body more slowly than from an adult s body, so aspirin levels in the infant s body could build up over time with long-term use of aspirin. Using high doseaspirin can lower the body s ability to clot blood(could lead to easier bruising or bleeding). This is not likely to happen withlow dose aspirin. Talk with your Healthcare provider about your questions. If a male takes low dose aspirin, could it affect fertility (ability to get partner ) or increase the chance of defects? There is very limited information about the effects of low dose aspirin on male reproduction. One study looked at men who attended an infertility clinic and were taking non-prescribed low dose aspirin at different doses and frequencies for at least six months. The study reported a decrease in the amount and quality of sperm, especially in those who used higher amounts of aspirin. Generally, it is not considered necessary for men to stop using lowdose aspirin before trying to get their partner . However, men undergoing fertility treatment may want to talk with their healthcare providers about whether or not they need to stop taking aspirin. In general, exposures that fathers or sperm donors have are unlikely to increase the risks to a . For more information, please see the [employer] fact sheet Paternal Exposures at https://[employer].org/fact-sheets/lbcvatyw-pecekitde-sypftkixk/. [facility] NoteHNO ID: [id number] Author: DEANNA BEVERLY MD Service: ? Author Type: Physician Type: Progress Notes Filed: 08/29/2024 08:46 Note Text: The patient presents for requested ultrasound. Full report available in the Imaging tab in [place]. Deanna Beverly, [facility]12-23-[facility] History of Present illness Narrative* Deanna Beverly MD - 08/29/2024 8:43 AM EST The patient presents for requested ultrasound. Full report available in the Imaging tab in [place]. Deanna Beverly MD [facility]24 NoteHNO ID: [id number] Author: MARIA EPPS MD Service: ? Author Type: Physician Type: Progress Notes Filed: 08/26/2024 09:56 Note Text: hRonda Cohen is a 19 year old female who presents for follow up ultrasound results. Pt reports has some cramping. No vaginal bleeding. Has some nausea and stomach pain. Has her new ob appt scheduled. No other concerns today. OB History T0 L0 SAB0 IAB0 Ectopic0 Multiple0 Live Births0 Channeler Outsole History LMP: 07/08/2024, Having periods Age at Menarche: Age at First : Age at Menopause: [employer] Outsole History Comments: Sexual Activity: Yes; Male Contraception: Not used PAST MEDICAL HISTORY Diagnosis Date Anxiety and depression History of IBS PAST SURGICAL HISTORY Procedure Laterality Date EGD W/O BRSH SPEC VARICIES INJ 07/06/2023 FAMILY HISTORY Problem Relation Age of Onset Fibromyalgia Mother Cervical Cancer Mother other (diverticulitis) Mother Kidney Disease Father No Known Problems Sister Kidney stones Brother No Known Problems Brother No Known Problems Brother Bipolar disorder Maternal Grandmother other (endometriosis) Maternal Grandmother Heart Maternal Grandfather No Known Problems Paternal Grandmother Heart Attack Paternal Grandfather other (endometriosis) Other Social History Tobacco Use Smoking status: Never Passive exposure: Never Smokeless tobacco: Never Vaping Use Vaping status: Never Used Substance Use Topics Alcohol use: Never Drug use: Never Current Outpatient Medications Medication Sig phenazopyridine (PYRIDIUM) 200 mg tablet Take 1 tablet by mouth every 8 hours as needed. omeprazole (PRILOSEC) 40 mg capsule Take 1 capsule by mouth once daily. fexofenadine (MELISA) 180 mg tablet Take 1 tablet by mouth four times daily. gabapentin (NEURONTIN) 300 mg capsule Take 1 capsule by mouth as directed for 60 days. fluticasone (FLONASE ALLERGY RELIEF) 50 mcg/actuation nasal spray Use 1 [place] in each nostril once daily. Qfuuyrcrmwlypim-Nacmndmsf-VZ (BROMFED DM) 2-30-10 mg/5 mL syrup Take 5 mL by mouth four times a day as needed. diphenhydrAMINE (BENADRYL) 25 mg capsule hyoscyamine sublingual (LEVSIN/SL) 0.125 mg Dissolve 1 tablet under the tongue every 4 hours as needed (abdominlal pain). cholecalciferol, Vitamin D3, (VITAMIN D3) 1,250 mcg (50,000 unit) cap capsule Take 1 capsule by mouth one time a week. DULoxetine (CYMBALTA) 20 mg capsule Take 1 capsule by mouth once daily. peppermint oil (IBGARD) 90 mg CECX Take 1 capsule by mouth once daily as needed (INTESTINAL UPSET). No current facility-administered medications for this visit. Allergies As of Date: 08/26/2024 Allergen Noted Reaction ATARAX [HYDROXYZINE] 06/30/2023 Other: See Comments ACETAMINOPHEN 05/27/2022 Diarrhea CHLORHEXIDINE 06/29/2023 Rash CIPROFLOXACIN 06/29/2023 Other: See Comments CLINDAMYCIN 06/29/2023 Anaphylaxis IBUPROFEN 05/27/2022 Diarrhea LACTOSE 11/02/2021 Diarrhea PEANUT BUTTER FLAVOR 04/29/2023 Diarrhea and GI Upset PENICILLINS 01/08/2019 Other: See Comments RED DYE 07/05/2023 Intolerance TRAMADOL 09/11/2023 Other: See Comments ZITHROMAX [AZITHROMYCIN] 01/27/2024 Diarrhea Fully Assessed 08/26/2024 REVIEW OF SYSTEMS Abdomen: see hpi Bladder: no dysuria. Expanded ROS: GENERAL: no fever Allergies and current medication updated:Yes SENSITIVE EXAM: Sensitive exam not performed. EXAM: BP 108/60 Wt 137 lb (62.1kg) LMP 07/08/2024 GENERAL: pleasant, female in no apparent distress HEENT: Normocephalic and atraumatic NECK: full range of motion NEURO: alert and oriented x3,exam grossly non-focal EXTREMITIES: normal ASSESSMENT AND PLAN: Assessment AND Plan Abdominal pain in , first trimester Ultrasond confirm 6w3 day intrauterine Nausea and vomiting in Confirm cardiac activity, ultrasound Visit for confirmation of test result with physical exam Reviewed taking pnv. Reviewed b6 and unisom. Discussed expectations. Reivewed if vaginal bleeding call office. Discussed tums and otc pepcid. Small frequent meals I spent a total of 20 minutes on the date of the service which included preparing to see the patient, [id number] patient care, completing clinical documentation, obtaining and/or reviewing separately obtained history, performing a medically appropriate examination, and counseling and educating the patient/family/caregiver. Maria Madrid [facility]12-20-2024 History of Present illness Narrative* Maria Epps MD - 08/26/2024 8:40 AM EST Rhonda Cohen is a 19 year old female who presents for follow up ultrasound results. Pt reports has some cramping. No vaginal bleeding. Has some nausea and stomach pain. Has her new ob appt scheduled. No other concerns today. OB History T0 L0 SAB0 IAB0 Ectopic0 Multiple0 Live Births0 Channeler Outsole History LMP: 07/08/2024, Having periods Age at Menarche: Age at First : Age at Menopause: Channeler Outsole History Comments: Sexual Activity: Yes; Male Contraception: Not used PAST MEDICAL HISTORY Diagnosis Date Anxiety and depression History of IBS PAST SURGICAL HISTORY Procedure Laterality Date EGD W/O BRSH SPEC VARICIES INJ 07/06/2023 FAMILY HISTORY Problem Relation Age of Onset Fibromyalgia Mother Cervical Cancer Mother other (diverticulitis) Mother Kidney Disease Father No Known Problems Sister Kidney stones Brother No Known Problems Brother No Known Problems Brother Bipolar disorder Maternal Grandmother other (endometriosis) Maternal Grandmother Heart Maternal Grandfather No Known Problems Paternal Grandmother Heart Attack Paternal Grandfather other (endometriosis) Other Social History Tobacco Use Smoking status: Never Passive exposure: Never Smokeless tobacco: Never Vaping Use Vaping status: Never Used Substance Use Topics Alcohol use: Never Drug use: Never Current Outpatient Medications Medication Sig phenazopyridine (PYRIDIUM) 200 mg tablet Take 1 tablet by mouth every 8 hours as needed. omeprazole (PRILOSEC) 40 mg capsule Take 1 capsule by mouth once daily. fexofenadine (MELISA) 180 mg tablet Take 1 tablet by mouth four times daily. gabapentin (NEURONTIN) 300 mg capsule Take 1 capsule by mouth as directed for 60 days. fluticasone (FLONASE ALLERGY RELIEF) 50 mcg/actuation nasal spray Use 1 [place] in each nostril once daily. Fwpaavcjdcpifgr-Qpccxfcgt-KZ (BROMFED DM) 2-30-10 mg/5 mL syrup Take 5 mL by mouth four times a dayas needed. diphenhydrAMINE (BENADRYL) 25 mg capsule hyoscyamine sublingual (LEVSIN/SL) 0.125 mg Dissolve 1 tablet under the tongue every 4 hours as needed (abdominlal pain). cholecalciferol, Vitamin D3, (VITAMIN D3) 1,250 mcg (50,000 unit) cap capsule Take 1 capsule by mouth one time a week. DULoxetine (CYMBALTA) 20 mg capsule Take 1 capsule by mouth once daily. peppermint oil (IBGARD) 90 mg CECX Take 1 capsule by mouth once daily as needed (INTESTINAL UPSET). No current facility-administered medications for this visit. Allergies As of Date: 08/26/2024 Allergen Noted Reaction ATARAX [HYDROXYZINE] 06/30/2023 Other: See Comments ACETAMINOPHEN 05/27/2022 Diarrhea CHLORHEXIDINE 06/29/2023 Rash CIPROFLOXACIN 06/29/2023 Other: See Comments CLINDAMYCIN 06/29/2023 Anaphylaxis IBUPROFEN 05/27/2022 Diarrhea LACTOSE 11/02/2021 Diarrhea PEANUT BUTTER FLAVOR 04/29/2023 Diarrhea and GI Upset PENICILLINS 01/08/2019 Other: See Comments RED DYE 07/05/2023 Intolerance TRAMADOL 09/11/2023 Other: See Comments ZITHROMAX [AZITHROMYCIN] 01/27/2024 Diarrhea Fully Assessed 08/26/2024 REVIEW OF SYSTEMS Abdomen: see hpi Bladder: no dysuria. Expanded ROS: GENERAL: no fever Allergies and current medication updated:Yes SENSITIVE EXAM: Sensitive exam not performed. EXAM: BP 108/60 Wt 137 lb (62.1kg) LMP 07/08/2024 GENERAL: pleasant, female in no apparent distress HEENT: Normocephalic and atraumatic NECK: full range of motion NEURO: alert and oriented x3,exam grossly non-focal EXTREMITIES: normal ASSESSMENT AND PLAN: Assessment & Plan Abdominal pain in , first trimester Ultrasond confirm 6w3 day intrauterine Nausea and vomiting in Confirm cardiac activity, ultrasound Visit for confirmation of test result with physical exam Reviewed taking pnv. Reviewed b6 and unisom. Discussed expectations. Reivewed if vaginal bleeding call office. Discussed tums and otc pepcid. Small frequent meals I spent a total of 20 minutes on the date of the service which included preparing to see the patient, [id number] patient care, completing clinical documentation, obtaining and/or reviewing separately obtained history, performing a medically appropriate examination, and counseling and educating the patient/family/caregiver. Maria Madrid MD [facility] Telephone encounter Note * Telephone Encounter - Vera Hatch APRN.CNM - 08/22/2024 10:24 AM EST As long as she has an appointment with a provider that is fine. It was not a NOB but a problem visit due to gestational age. Will need to schedule a full NOB after viability confirmed. Thanks, Vera Hatch APRN.CNM [facility] Work Phone: 1(305) 799-938912-16-2024 Miscellaneous Notes* Telephone Encounter - Vera Hatch APRN.CNM - 08/22/2024 10:24 AM EST As long as she has an appointment with a provider that is fine. It was not a NOB but a problem visit due to gestational age. Will need to schedule a full NOB after viability confirmed. Thanks, Vera Hatch APRN.CNM * Telephone Encounter - Veronica Mcdonald RN - 08/22/2024 8:18 AM EST Patient's u/s got moved up tomorrow for uncertain dates. She said she was to have an appt with provider after it. I did schedule this with RR then. Did you want to see her instead? u/s is scheduled at 1pm. After ending call though I noticed she does not have a OB episode open. Did you not do the full NOB on 08/16? She does not have another NOB appt scheduled as of now either if this is a viable . She only has est OB appts. Veronica Mcdonald RN documented in [facility] encounter[facility]12-16-[facility]24 Telephone encounter Note * Telephone Encounter - Veronica Mcdonald RN - 08/22/2024 8:18 AM EST Patient's u/s got moved up tomorrow for uncertain dates. She said she was to have an appt with provider after it. I did schedule this with RR then. Did you want to see her instead? u/s is scheduled at 1pm. After ending call though I noticed she does not have a OB episode open. Did you not do the full NOB on 08/16? She does not have another NOB appt scheduled as of now either if this is a viable . She only has est OB appts. Veronica Mcdonald RN [facility]12-12-2024 Telephone encounter Note* Telephone Encounter - Veronica Mcdonald RN - 08/18/2024 2:57 PM EST See 08/18/24 Swyftt message encounter. Veronica Mcdonald RN [facility]12-12-2024 Miscellaneous Notes* Telephone Encounter - Veronica Mcdonald RN - 08/18/2024 2:57 PM EST See 08/18/24 Dataguisehart message encounter. Veronica Mcdonald RN * Telephone Encounter - Nano Looney RN - 08/17/2024 3:58 PM EST Keep phone note open for 08/18 HCG Quant result. Nano Looney RN * Telephone Encounter - Nano Looney RN - 08/17/2024 3:58 PM EST ----- Message from Vera Hatch APRN.CNM sent at 08/17/2024 3:56 PM EST ----- Please follow up with dehydration plant operator provider after next level. If increasing ok to wait for US results. If decreasing make sure patient knows bleeding precautions and still follow up US. Vera Hatch APRN.CNM documented in this encounterGreen [facility]12-12-2024 Telephone encounter Note * Telephone Encounter - Swati Gauthier APRN.CNP - 08/18/2024 9:28 AM EST Called [facility] 08/18/2024 0929 a. Verified by name and sent communication regarding avoiding lifting over 50 pounds etc to MCM. Swati Gauthier APRN.CNP [facility]12-12-2024 Miscellaneous Notes* Telephone Encounter - Swati Gauthier APRN.CNP - 08/18/2024 9:28 AM EST Called [facility] 08/18/2024 0929 a. Verified by name and sent communication regarding avoiding lifting over 50 pounds etc to MCM. Swati Gauthier APRN.BOOKING SUPERVISOR documented in this encounterGreen Cross Hospital12-11-2024 Telephone encounter Note * Telephone Encounter - Nano Looney RN - 08/17/2024 3:58 PM EST Keep phone note open for 08/18 HCG Quant result. Nano Looney RN [facility]12-11-2024 Telephone encounter Note* Telephone Encounter - Nano Looney RN - 08/17/2024 3:58 PM EST ----- Message from Vera Hatch APRN.CNM sent at 08/17/2024 3:56 PM EST ----- Please follow up with dehydration plant operator provider after next level. If increasing ok to wait for US results. If decreasing make sure patient knows bleeding precautions and still follow up US. Vera Hatch APRN.CNM [facility]12-11-2024 Telephone encounter Note* Telephone Encounter - Lou Myrick RN - 08/17/2024 10:37 AM EST [facility] RN Coordination Date of Referral: August 10, 2024 Reason for Referral: PUL Primary RN ORTHO Provider: ED Documentation of Patient Contact: Date: Contact Type: Details: Sign: August 10, 2024 Ref Review PUL Rh POS LMP ? [ ] Intro, trend HCG, schedule appt Last contact: HC (08/10) US: (08/10) ?GS x 2 EBr 08/10/2024 Phone Called pt, verified name and . Introduced self and [facility]. LMP- end of jun? Hx of irregular cycles. Unplanned but desired. Reports intermittent pain, cramping feeling, sharp stabbingin middle abdomen. Denies VB. Reviewed SAB/bleeding and ectopic precautions, advised pt to present to the ED if she develops heavy VB saturating a pad in an hour or less for >2 hrs in a row, passing blood clots > or = to the size of a golf ball, and/or severe pain; pt verbalizes understanding. Will haveHCG drawn Thursday and VV@415p- [place] to review plan of care JS 08/17/2024 Discharge Pt seen by [facility] 08/12, most recent hCG normal rise. Pt had NOB appt on 08/16 with Vera Hatch, plan was made and pt has follow up USN and provider visit again on 08/30. At this time, [facility] will sign off as patient has appropriate follow up care and monitoring. Routing to Dr Ma and Vera Hatch. LW [facility] Work Phone: [phone]) 808-807512-11-2024 Miscellaneous Notes* Telephone Encounter - Lou Myrick RN - 08/17/2024 10:37 AM EST [facility] RN Coordination Date of Referral: August 10, 2024 Reason for Referral: PUL Primary RN ORTHO Provider: ED Documentation of Patient Contact: Date: Contact Type: Details: Sign: August 10, 2024 Ref Review PUL Rh POS LMP ? [ ] Intro, trend HCG, schedule appt Last contact: HC (08/10) US: (08/10) ?GS x 2 EBr 08/10/2024 Phone Called pt, verified name and . Introduced self and PE[facility]. LMP- end of jun? Hx of irregular cycles. Unplanned but desired. Reports intermittent pain, cramping feeling, sharp stabbingin middle abdomen. Denies VB. Reviewed SAB/bleeding and ectopic precautions, advised pt to present to the ED if she develops heavy VB saturating a pad in an hour or less for >2 hrs in a row, passing blood clots > or = to the size of a golf ball, and/or severe pain; pt verbalizes understanding. Will haveHCG drawn Thursday and V[facility] [place] to review plan of care JS 08/17/2024 Discharge Pt seen by [facility] 08/12, most recent hCG normal rise. Pt had NOB appt on 08/16 with Vera Hatch, plan was made and pt has follow up USN and provider visit again on 08/30. At this time, [facility] will sign off as patient has appropriate follow up care and monitoring. Routing to Dr Ma and Vera Hatch. LW documented in this encounterGreen [facility]12-10-2024 Instructions* Patient Instructions* Vera Hatch APRN.STEPHEN - 08/16/2024 2:00 PM EST Expected HCG increase for viable intrauterine : - 49% for an initial hCG level of less than 1,500 mIU/mL - 40% for an initial hCG level of 1,500-3,000 mIU/mL - 33% for an initial hCG level greater than 3,000 mIU/mL A increase less than the expected amount predicts a failing intrauterine or ectopic with 99% certainty. More than one abnormal trend increases the diagnostic certainty further. Expected HCG trend for spontaneous resolution of : The 95% predictive bound for the minimum hCG decline in women with resolving of unknown location ranges from 35-50% at 2 days [id number]% at 7 days for starting hCG values of 250-5,000. Slower decreases are more common in women with lower initial HCGs. documented in this encounterGreen [facility] Hospital12-10-2024 NoteHNO ID: [id number] Author: VERA HATCH APRN.CNM Service: ? 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 Rhonda Cohen is a 19 year old female who presents for problem visit follow up ED visit and . HPI: Seen on 08/10/24 in ED for pain. 2 gestational sacs with no pole or yolk sac seen. Follow up virtual visit with [facility] on 08/12. Increase in serum hCG levels. No bleeding, spotting, or pain. OB History T0 L0 SAB0 IAB0 Ectopic0 Multiple0 Live Births0 Channeler Outsole History LMP: 07/08/2024, Having periods Age at Menarche: Age at First : Age at Menopause: Channeler Outsole History Comments: Sexual Activity: Yes; Male Contraception: None PAST MEDICAL HISTORY Diagnosis Date Anxiety and depression History of IBS PAST SURGICAL HISTORY Procedure Laterality Date EGD W/O BRSH SPEC VARICIES INJ 07/06/2023 FAMILY HISTORY Problem Relation Age of Onset Fibromyalgia Mother Cervical Cancer Mother other (diverticulitis) Mother Kidney Disease Father No Known Problems Sister Kidney stones Brother No Known Problems Brother No Known Problems Brother Bipolar disorder Maternal Grandmother other (endometriosis) Maternal Grandmother Heart Maternal Grandfather No Known Problems Paternal Grandmother Heart Attack Paternal Grandfather other (endometriosis) Other Social History Tobacco Use Smoking status: Never Passive exposure: Never Smokeless tobacco: Never Vaping Use Vaping status: Never Used Substance Use Topics Alcohol use: Never Drug use: Never Current Outpatient Medications Medication Sig phenazopyridine (PYRIDIUM) 200 mg tablet Take 1 tablet by mouth every 8 hours as needed. omeprazole (PRILOSEC) 40 mg capsule Take 1 capsule by mouth once daily. fexofenadine (MELISA) 180 mg tablet Take 1 tablet by mouth four times daily. gabapentin (NEURONTIN) 300 mg capsule Take 1 capsule by mouth as directed for 60 days. fluticasone (FLONASE ALLERGY RELIEF) 50 mcg/actuation nasal spray Use 1 [place] in each nostril once daily. Ncpezhorpuanlbr-Rtgtzkvmb-QP (BROMFED DM) 2-30-10 mg/5 mL syrup Take 5 mL by mouth four times a day as needed. diphenhydrAMINE (BENADRYL) 25 mg capsule hyoscyamine sublingual (LEVSIN/SL) 0.125 mg Dissolve 1 tablet under the tongue every 4 hours as needed (abdominlal pain). cholecalciferol, Vitamin D3, (VITAMIN D3) 1,250 mcg (50,000 unit) cap capsule Take 1 capsule by mouth one time a week. DULoxetine (CYMBALTA) 20 mg capsule Take 1 capsule by mouth once daily. peppermint oil (IBGARD) 90 mg CECX Take 1 capsule by mouth once daily as needed (INTESTINAL UPSET). No current facility-administered medications for this visit. Allergies As of Date: 08/16/2024 Allergen Noted Reaction ATARAX [HYDROXYZINE] 06/30/2023 Other: See Comments ACETAMINOPHEN 05/27/2022 Diarrhea CHLORHEXIDINE 06/29/2023 Rash CIPROFLOXACIN 06/29/2023 Other: See Comments CLINDAMYCIN 06/29/2023 Anaphylaxis IBUPROFEN 05/27/2022 Diarrhea LACTOSE 11/02/2021 Diarrhea PEANUT BUTTER FLAVOR 04/29/2023 Diarrhea and GI Upset PENICILLINS 01/08/2019 Other: See Comments RED DYE 07/05/2023 Intolerance TRAMADOL 09/11/2023 Other: See Comments ZITHROMAX [AZITHROMYCIN] 01/27/2024 Diarrhea Fully Assessed 08/16/2024 REVIEW OF SYSTEMS Abdomen: No bloating, early satiety, indigestion, or increased flatulence. No abdominal pain, nausea, vomiting, diarrhea, or constipation. Bladder: No dysuria, gross hematuria, urinary frequency, urinary urgency, or incontinence. Breast: No breast lumps, nipple d/c, overlying skin changes, redness or skin retraction. Expanded ROS: N/A Allergies and current medication updated:Yes SENSITIVE EXAM: Sensitive exam not performed. EXAM: BP 100/60 Ht 5' 4 (1.63m) Wt 141 lb (64.0kg) LMP 07/08/2024 BMI 24.19 kg/(m2). GENERAL: pleasant, female in no apparent distress HEENT: Normocephalic and atraumatic BIMANUAL: NEURO: alert and oriented x3,exam grossly non-focal EXTREMITIES: normal Labs: Lab Results Component Value Date HB 13.0 08/10/2024 PLT 320 08/10/2024 AST 19 08/10/2024 ALT 12 08/10/2024 CREAT 0.51 (L) 08/10/2024 RH Positive 08/10/2024 HCGQT 417.6 (H) 08/12/2024 HCGQT 173.2 (H) 08/10/2024 HCGQT <0.6 06/29/2023 Imagin08/10/2024 RESULT: Uterus: - Orientation: Anteverted - Size: 7.9 x 4.2 x 5.4 cm - Myometrium: homogeneous echogenicity - Cervix: 4.7cm, closed with no funneling Gestation: - Intrauterine gestational sac: Two eccentrically located cystic structures within the endometrium with intradecidual sign may possibly represent very early intrauterine gestational sacs: Possible gestational sac A: - Mean Sac Diameter: 0.3 cm, corresponding gestational age 4 week 6 days - Yolk sac: Not seen - Embryo: Not seen Possible gestational sac B: - Mean Sac Diameter: 0.3 cm, correspondi (more content not included)...[facility]12-10-2024 History of Present illness Narrative* Vera Hatch APRN.STEPHEN - 08/16/2024 1:13 PM EST 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 Rhonda Cohen is a 19 year old female who presents for problem visit follow up ED visit and . HPI: Seen on 08/10/24 in ED for pain. 2 gestational sacs with no pole or yolk sac seen. Followup virtual visit with [facility] on 08/12. Increase in serum hCG levels. No bleeding, spotting, or pain. OB History T0 L0 SAB0 IAB0 Ectopic0 Multiple0 Live Births0 Channeler Outsole History LMP: 07/08/2024, Having periods Age at Menarche: Age at First : Age at Menopause: Channeler Outsole History Comments: Sexual Activity: Yes; Male Contraception: None PAST MEDICAL HISTORY Diagnosis Date Anxiety and depression History of IBS PAST SURGICAL HISTORY Procedure Laterality Date EGD W/O BRSH SPEC VARICIES INJ 07/06/2023 FAMILY HISTORY Problem Relation Age of Onset Fibromyalgia Mother Cervical Cancer Mother other (diverticulitis) Mother Kidney Disease Father No Known Problems Sister Kidney stones Brother No Known Problems Brother No Known Problems Brother Bipolar disorder Maternal Grandmother other (endometriosis) Maternal Grandmother Heart Maternal Grandfather No Known Problems Paternal Grandmother Heart Attack Paternal Grandfather other (endometriosis) Other Social History Tobacco Use Smoking status: Never Passive exposure: Never Smokeless tobacco: Never Vaping Use Vaping status: Never Used Substance Use Topics Alcohol use: Never Drug use: Never Current Outpatient Medications Medication Sig phenazopyridine (PYRIDIUM) 200 mg tablet Take 1 tablet by mouth every 8 hours as needed. omeprazole (PRILOSEC) 40 mg capsule Take 1 capsule by mouth once daily. fexofenadine (MELISA) 180 mg tablet Take 1 tablet by mouth four times daily. gabapentin (NEURONTIN) 300 mg capsule Take 1 capsule by mouth as directed for 60 days. fluticasone (FLONASE ALLERGY RELIEF) 50 mcg/actuation nasal spray Use 1 [place] in each nostril once daily. Rfvznkydvltyuax-Oxqaodamx-WI (BROMFED DM) 2-30-10 mg/5 mL syrup Take 5 mL by mouth four times a dayas needed. diphenhydrAMINE (BENADRYL) 25 mg capsule hyoscyamine sublingual (LEVSIN/SL) 0.125 mg Dissolve 1 tablet under the tongue every 4 hours as needed (abdominlal pain). cholecalciferol, Vitamin D3, (VITAMIN D3) 1,250 mcg (50,000 unit) cap capsule Take 1 capsule by mouth one time a week. DULoxetine (CYMBALTA) 20 mg capsule Take 1 capsule by mouth once daily. peppermint oil (IBGARD) 90 mg CECX Take 1 capsule by mouth once daily as needed (INTESTINAL UPSET). No current facility-administered medications for this visit. Allergies As of Date: 08/16/2024 Allergen Noted Reaction ATARAX [HYDROXYZINE] 06/30/2023 Other: See Comments ACETAMINOPHEN 05/27/2022 Diarrhea CHLORHEXIDINE 06/29/2023 Rash CIPROFLOXACIN 06/29/2023 Other: See Comments CLINDAMYCIN 06/29/2023 Anaphylaxis IBUPROFEN 05/27/2022 Diarrhea LACTOSE 11/02/2021 Diarrhea PEANUT BUTTER FLAVOR 04/29/2023 Diarrhea and GI Upset PENICILLINS 01/08/2019 Other: See Comments RED DYE 07/05/2023 Intolerance TRAMADOL 09/11/2023 Other: See Comments ZITHROMAX [AZITHROMYCIN] 01/27/2024 Diarrhea Fully Assessed 08/16/2024 REVIEW OF SYSTEMS Abdomen: No bloating, early satiety, indigestion, or increased flatulence. No abdominal pain, nausea, vomiting, diarrhea, or constipation. Bladder: No dysuria, gross hematuria, urinary frequency, urinary urgency, or incontinence. Breast: No breast lumps, nipple d/c, overlying skin changes, redness or skin retraction. Expanded ROS: N/A Allergies and current medication updated:Yes SENSITIVE EXAM: Sensitive exam not performed. EXAM: BP 100/60 Ht 5' 4 (1.63m) Wt 141 lb (64.0kg) LMP 07/08/2024 BMI 24.19 kg/(m^2). GENERAL: pleasant, female in no apparent distress HEENT: Normocephalic and atraumatic BIMANUAL: NEURO: alert and oriented x3,exam grossly non-focal EXTREMITIES: normal Labs: Lab Results Component Value Date HB 13.0 08/10/2024 PLT 320 08/10/2024 AST 19 08/10/2024 ALT 12 08/10/2024 CREAT 0.51 (L) 08/10/2024 RH Positive 08/10/2024 HCGQT 417.6 (H) 08/12/2024 HCGQT 173.2 (H) 08/10/2024 HCGQT <0.6 06/29/2023 Imagin08/10/2024 RESULT: Uterus: - Orientation: Anteverted - Size: 7.9 x 4.2 x 5.4 cm - Myometrium: homogeneous echogenicity - Cervix: 4.7cm, closed with no funneling Gestation: - Intrauterine gestational sac: Two eccentrically located cystic structures within the endometrium with intradecidual sign may possibly represent very early intrauterine gestational sacs: Possible gestational sac A: - Mean Sac Diameter: 0.3 cm, corresponding gestational age 4 week 6 days - Yolk sac: Not seen - Embryo: Not seen Possible gestational sac B: - Mean Sac Diameter: 0.3 cm, corresponding gestational age 4 week 6 days - Yolk sac: Not seen - Embryo: Not seen Right ovary: - Size : 4.7 x 2.4 x 3.1 cm - Normal sonographic appearance with physiologic follicles. Left ovary: - Size: 3.2 x 1.9 x 2.4 cm - Normal sonographic appearance with physiologic follicles. Pelvis free fluid: None. All documentation from previous visit of 08/10/2024 was copied and pasted, documentation has been reviewed and edited as necessary for today's visit. Limited bedside US today shows one gestational sac with possible yolk sac. Assistance with Effie at bedside. ASSESSMENT AND PLAN: Assessment & Plan with uncertain dates, antepartum -Due to gestational age and limited time since last US, POCUS not performed. Will get formal US in 12 days. -Repeat serum quant today -A positive -Bleeding precautions reviewed and when to call. Discussed uncertain viability at this time. Vera Hatch APRN.CNM * Aleksander Hodges MA - 08/16/2024 1:00 PM EST OB point of care ultrasound was performed. See imaging tab for details. Aleksander Hodges MA documented in this encounterGreen [facility]12-10-2024 NoteHNO ID: [id number] Author: ALEKSANDER HODGES MA Service: ? Author Type: Podiatric Medicine Doctor Type: Progress Notes Filed: 08/16/2024 14:02 Note Text: OB point of care ultrasound was performed. See imaging tab for details. Aleksander Hodges [facility]12-06-2024 Instructions* Patient Instructions* Swati Gauthier APRN.CNP - 08/12/2024 4:32 PM EST [facility] ([facility]) You received care from Swati Gauthier APRN.CNP in the [facility] Assessment Clinic ([facility]).[facility] is a specialized program of the [facility] [place] dedicated to caring for patients who are experiencing -related complications or concerns. If you have concerns or questions about your health, please call us: Thursday through Thursday, 8 am to 4:30 pm, please call the [facility] nurse coordinators (Kourtney Paige Laura, and Jasmin). You may leave a voicemail we will return your call within 48 hours. Voicemails are not checked on evenings and weekends. The [facility] number is [phone] Evenings and weekends, please call the on-call doctor: [phone]. For emergencies, call 911. Thank you for choosing [facility] for your health care. Until a can be seen on ultrasound ( +GS [ gestational sac;fluid-filled structure surrounding an embryo during the first few weeks of baby development] +YS [yolk sac; structure that developsinside your uterus during early . It provides an embryo with nourishment (food). It helps circulate gasses between you and the embryo as well as a few other villalobos functions) you have a of unknown location. is somewhere but the exact location is unclear at the moment.this is a temporary diagnosis. Only time and ( hcgs and ultrasound ) will tell where the is in uterus or somewhere else. If this is an ectopic (outside the uterus),in this instance during your doctor, nurse practitioner or platform power technician sees sac w/ or without an embryo ( baby) outside of your uterus;then we move on to treatment options. Adapted from Martine CHANDRA (2020) At this time we advise strict ectopic and miscarriage precautions ( please review) Ectopic An ectopic happens when a fertilized egg implants outside of the uterus, most commonly inthe fallopian tube. The fallopian tube is not made to hold a growing embryo and can t stretch like a uterus. This condition can lead to bleeding in the mother. An ectopic is a life-threatening condition that requires emergency treatment. Symptoms and Causes Diagnosis and Tests Management and Treatment Prevention [place] / Prognosis OVERVIEW What is Ectopic ? What is an ectopic ? An ectopic is a that happens outside of the uterus. This happens when a fertilized egg implants in a structure that can t support its growth. An ectopic often happens inthe fallopian tube (a pair of structures that connect the ovaries and uterus). In rare cases, an ectopic can occur on an ovary or in the abdominal cavity. This is a life-threatening condition. An ectopic is not a that can be carried to term (till ) and can be dangerous for the mother if not treated right away. Where does an ectopic happen? It s considered an ectopic whenever the fertilized egg implants outside of your uterus. The egg is meant to travel down the fallopian tubes and imbed itself into the wall of your uterus, where it can begin to develop. In an ectopic , the egg implants in one of the structures along the way. The most common place this can happen is within the fallopian tubes. The majority of ectopic pregnancies happen here--called a tubal ectopic . A fertilized egg can also implant on other organs in your abdominal cavity. This is a rarer form of ectopic than one that happens in a fallopian tube. How serious is an ectopic ? An ectopic is a medical emergency. The uterus is uniquely suited to hold a growing fetus.It s an organ that can stretch and expand as the fetus grows. Your fallopian tubes aren t as flexible. They can burst as the fertilized egg develops. When this happens, you can experience large amounts of internal bleeding. This is life threatening. An ectopic needs to be treated right away to avoid injury to the fallopian tube, other organs in the abdominal cavity, internal bleeding and . Can my continue after an ectopic ? Unfortunately, an ectopic is fatal for the fetus. It cannot survive outside of the uterus. Quick treatment for an ectopic is important to protect the mother s life. If the egg hasimplanted in the fallopian tube and the tube bursts, there can be severe internal bleeding. This can lead to maternal . SYMPTOMS AND CAUSES What causes an ectopic ? In most cases, an ectopic is caused by conditions that slow down or block the movement ofthe egg down the fallopian tube and into the uterus. How do I know if I m at risk of an ectopic ? There are several risk factors that could increase your chance of developing an ectopic . A risk factor is a trait or behavior that increases your chance for developing a disease or condition. You may be at a higher risk of developing an ectopic if you ve had: A previous ectopic . A history of pelvic inflammatory disease (PID), an infection that can cause scar tissue to form in your fallopian tubes, uterus, ovaries and cervix. Surgery on your fallopian tubes (including tubal ligation, also referred to as having your tubes tied) or on the other organs of your pelvic area. A history of infertility. Treatment for infertility with in vitro fertilization (IVF). Endometriosis. Sexually transmitted infections (STIs). An intrauterine device (IUD), a form of control, in place at the time of conception. A history of smoking. Your risk can also increase as you get older. Women over age 35 are more at risk than younger women. Many women who experience an ectopic don t have any of the above risk factors. What are the symptoms of an ectopic ? The early symptoms of an ectopic can be very similar to typical symptoms. However, you may experience additional symptoms during an ectopic , including: Vaginal bleeding. Pain in your lower abdomen, pelvis and lower back. Dizziness or weakness. If the fallopian tube ruptures, the pain and bleeding could be severe enough to cause additional symptoms. These can include: Fainting. Low blood pressure (hypotension). Shoulder pain. Rectal pressure. When a tube bursts, you may feel sharp lower abdominal pain. This is a medical emergency and you will need to contact your healthcare provider or go to the emergency room immediately. If you realize that you are and have an IUD (intrauterine device for contraception) in place, or have a history of a tubal ligation (having your tubes tied by surgery or at the time of a ), contact your healthcare provider right away. Ectopic is more common in these situations. DIAGNOSIS AND TESTS How is an ectopic diagnosed? An ectopic is typically diagnosed during an appointment in your healthcare provider s office. Your provider will perform several tests to first confirm a , and then look for the ectopic . These tests include: A urine test: This test involves either urinating on a test strip (typically shaped like a stick) or urinating into a cup in your provider s office and then having a test strip dipped into the urine sample. A blood test: You provider may test your blood to see how much of the hormone human chorionic gonadotropin (hCG) you have in your body. This hormone is produced during . You may also hear this called your serum beta-hCG level. An ultrasound exam: An imaging test, an ultrasound uses sound waves to create a picture of your body s internal structures. Ultrasound is often used during . Your provider will use this testto see where the fertilized egg has implanted. Once your provider has confirmed the and determined where the fertilized egg has implanted, a treatment plan will be created. Ectopic is an emergency and treatment for this condition is very important. If your fallopian tube ruptures, you will need to go to the emergency room and be treated immediately. In those cases, there s no time to wait for an appointment. How early in a is an ectopic detected? Ectopic is typically discovered very early in . Most cases are found within the first trimester (the first three months). It usually is discovered by the eighth week of . MANAGEMENT AND TREATMENT How is an ectopic treated? There are several ways that an ectopic can be treated. In some cases, your provider may suggest using a medication called methotrexate to stop the growth of the . This will end your . Methotrexate is given in an injection by your healthcare provider. This option is less invasive than surgery, but it does require follow-up appointments with your provider where you hCG levels will be monitored. In severe cases, surgery is often used. Your provider will want to operate when your fallopian tubehas ruptured or if you are at a risk of rupture. This is an emergency surgery and a life-saving treatment. The procedure is typically done laparoscopically (through several small incisions instead ofone bigger cut). The surgeon may remove the entire fallopian tube with the egg still inside it or re move the egg from the tube if possible. PREVENTION Can I prevent an ectopic ? An ectopic cannot be prevented. But you can try to reduce your risk factors by following good lifestyle habits. These can include not smoking, maintaining a healthy weight and diet, and preventing any sexually transmitted infections (STIs). Talk to your healthcare provider about any risk factors you may have before trying to become . OUTLOOK / PROGNOSIS Can I get again after an ectopic ? Most women who have had an ectopic can go on to have future successful pregnancies. Thereis a higher risk of having future ectopic pregnancies after you have had one. It s important to talk to your healthcare provider about the causes of your ectopic and what risk factors you may have that could cause a future ectopic . How long should I wait before becoming again after an ectopic ? You should talk to your healthcare provider about future pregnancies after being treated for an ectopic . Although may happen quickly after treatment, it s often best to wait aboutthree months. This allows your fallopian tube time to heal and decreases the risk of another ectopic . If my fallopian tube is removed, can I still have a baby? In most cases, you can still have a baby if you have had one of your fallopian tubes removed. You have a pair of fallopian tubes and eggs can still travel down your remaining tube. There are also assisted fertility procedures where the egg is extracted from the ovary, fertilized outside of the bodyand placed in the uterus for implantation. This is called in vitro fertilization (IVF). Have an open conversation about your thoughts on future pregnancies with your healthcare provider. Together, you can form a plan and discuss ways to decrease any risk factors you may have. [email or web address]/[email or web address]-kzodjyp-eqcburthl Please watch out for these signs and symptoms of a miscarriage. WHAT WILL I SEE AND FEEL WHEN I HAVE A LOSS? - Bleeding or spotting from the vagina - Passing small or large clots - Cramps or abdominal pain - Back pressure or pain These symptoms may be minor or severe. They may last a few days or weeks. Contact your clinician for a visit as soon as you notice bleeding, cramping, and/or pain. These symptoms can be part of a normal , but it is a good idea to have more tests done. Ifyou have very heavy bleeding or a fever above 101F, go to the emergency room. [email or web address].org/wp-content/uploads/[email or web address]-hkvtfbtyu- miscarriage-hungarian.pdf documented in this encounterGreen [facility]12-[facility]24 NoteHNO ID: [id number] Author: SWATI GAUTHIER APRN.IFTIKHAR Service: ? Author Type: Nurse Practitioner Type: Progress Notes Filed: 08/12/2024 16:37 Note Text: Payable Manager Progress Note - Early Assessment Clinic (PE[facility]) Virtual Visit: This is a virtual visit using [employer] video visit. It required patient-provider interaction for the medical decision making as documented below. I have communicated my name and active licensure. The patient's identity and physical location were verified at the time of this visit. Either the patient or their legal market survey representative has been informed of the risks and benefits of -- and alternatives to -- treatment through a remote evaluation and consents to proceed with the evaluation remotely. Chief Complaint: Patient presents with: : PEAC PUL Subjective HPI: The patient is a 19 year old at Unknown Today, cramping that is consistent bilateral pelvis , it sis relieved with heat. This was not a planned but much accepted. She has chronic nausea . She will begin taking a . She denies any VB Patient's last menstrual period was 12/03/2023 (exact date). LMP is uncertain very irregular Ectopic risk factors - h/o ectopic : No - IUD in place: No - h/o STIs/PID: no - h/o adnexal surgery: No Risk for STIs Number of partners in the last 3 months: 1 Partner(s) do or may have other partners: no IVDU or partner with IVDU: no Sex in the last year in exchange for money or something needed/wanted: no Communication preferences - Best phone number verified in [place]? Yes - Permission to leave voicemail? Yes - Voicemail can include specific health information: Yes - Accepts [employer] messages for non-urgent communication: Yes Histories updated. Objective LMP 12/03/2023 (Exact Date) Physical Exam Constitutional: Appearance: Normal appearance. HENT: Head: Normocephalic. Nose: Nose normal. Mouth/Throat: Mouth: Mucous membranes are moist. Pharynx: Oropharynx is clear. Eyes: Pupils: Pupils are equal, round, and reactive to light. Pulmonary: Effort: Pulmonary effort is normal. Musculoskeletal: Cervical back: Normal range of motion. Neurological: General: No focal deficit present. Mental Status: She is alert and oriented to person, place, and time. Psychiatric: Mood and Affect: Mood normal. Behavior: Behavior normal. Unable to complete full physical assessment d/t VV Labs: Lab Results Component Value Date HB 13.0 08/10/2024 PLT 320 08/10/2024 AST 19 08/10/2024 ALT 12 08/10/2024 CREAT 0.51 (L) 08/10/2024 RH Positive 08/10/2024 HCGQT 417.6 (H) 08/12/2024 HCGQT 173.2 (H) 08/10/2024 HCGQT <0.6 06/29/2023 Imagin08/10/2024 RESULT: Uterus: - Orientation: Anteverted - Size: 7.9 x 4.2 x 5.4 cm - Myometrium: homogeneous echogenicity - Cervix: 4.7cm, closed with no funneling Gestation: - Intrauterine gestational sac: Two eccentrically located cystic structures within the endometrium with intradecidual sign may possibly represent very early intrauterine gestational sacs: Possible gestational sac A: - Mean Sac Diameter: 0.3 cm, corresponding gestational age 4 week 6 days - Yolk sac: Not seen - Embryo: Not seen Possible gestational sac B: - Mean Sac Diameter: 0.3 cm, corresponding gestational age 4 week 6 days - Yolk sac: Not seen - Embryo: Not seen Right ovary: - Size : 4.7 x 2.4 x 3.1 cm - Normal sonographic appearance with physiologic follicles. Left ovary: - Size: 3.2 x 1.9 x 2.4 cm - Normal sonographic appearance with physiologic follicles. Pelvis free fluid: None. All documentation from previous visit of 08/10/2024 was copied and pasted, documentation has been reviewed and edited as necessary for today's visit. Assessment / Plan 19 year old at Unknown by LMP with PUL. We discussed at length the current placeholder diagnosis of of unknown location and contextualized this within expectations for normal versus abnormal hCG trends. We reviewed the current clinical priority is determining location due to the high level of risk associated with ectopic . If an intrauterine location is confirmed, the next step is to determine viability. Expected HCG increase for viable intrauterine : - 49% for an initial hCG level of less than 1,500 mIU/mL - 40% for an initial hCG level of 1,500-3,000 mIU/mL - 33% for an initial hCG level greater than 3,000 mIU/mL A increase less than the expected amount predicts a failing intrauterine or ectopic with 99% certainty. More than one abnormal trend increases the diagnostic certainty further. Expected HCG trend for spontaneous resolution of : The 95% predictive bound for the minimum hCG decline in women with resolving of unknown location ranges from 35-50% at 2 days and 66-87% at 7 days for starting hCG values of 250-5,000. (more content not included)...[facility] 08-12-2024 History of Present illness Narrative* Swati Gauthier, CLOTH COLORS EXAMINER.[facility] - 08/12/2024 4:16 PM EST Payable Manager Progress Note - Early Assessment Clinic (PEAC) Virtual Visit: This is a virtual visit using [employer] video visit. It required patient-provider interaction for themedical decision making as documented below. I have communicated my name and active licensure. The patient's identity and physical location wereverified at the time of this visit. Either the patient or their legal market survey representative has been informed of the risks and benefits of -- and alternatives to -- treatment through a remote evaluation andconsents to proceed with the evaluation remotely. Chief Complaint: Patient presents with: : PEAC PUL Subjective HPI: The patient is a 19 year old at Unknown Today, cramping that is consistent bilateral pelvis , it sis relieved with heat. This was not a planned but much accepted. She has chronic nausea . She will begin taking a . She denies any VB Patient's last menstrual period was 12/03/2023 (exact date). LMP is uncertain very irregular Ectopic risk factors - h/o ectopic : No - IUD in place: No - h/o STIs/PID: no - h/o adnexal surgery: No Risk for STIs Number of partners in the last 3 months: 1 Partner(s) do or may have other partners: no IVDU or partner with IVDU: no Sex in the last year in exchange for money or something needed/wanted: no Communication preferences - Best phone number verified in [place]? Yes - Permission to leave voicemail? Yes - Voicemail can include specific health information: Yes - Accepts [employer] messages for non-urgent communication: Yes Histories updated. Objective LMP 12/03/2023 (Exact Date) Physical Exam Constitutional: Appearance: Normal appearance. HENT: Head: Normocephalic. Nose: Nose normal. Mouth/Throat: Mouth: Mucous membranes are moist. Pharynx: Oropharynx is clear. Eyes: Pupils: Pupils are equal, round, and reactive to light. Pulmonary: Effort: Pulmonary effort is normal. Musculoskeletal: Cervical back: Normal range of motion. Neurological: General: No focal deficit present. Mental Status: She is alert and oriented to person, place, and time. Psychiatric: Mood and Affect: Mood normal. Behavior: Behavior normal. Unable to complete full physical assessment d/t VV Labs: Lab Results Component Value Date HB 13.0 08/10/2024 PLT 320 08/10/2024 AST 19 08/10/2024 ALT 12 08/10/2024 CREAT 0.51 (L) 08/10/2024 RH Positive 08/10/2024 HCGQT 417.6 (H) 08/12/2024 HCGQT 173.2 (H) 08/10/2024 HCGQT <0.6 06/29/2023 Imagin08/10/2024 RESULT: Uterus: - Orientation: Anteverted - Size: 7.9 x 4.2 x 5.4 cm - Myometrium: homogeneous echogenicity - Cervix: 4.7cm, closed with no funneling Gestation: - Intrauterine gestational sac: Two eccentrically located cystic structures within the endometrium with intradecidual sign may possibly represent very early intrauterine gestational sacs: Possible gestational sac A: - Mean Sac Diameter: 0.3 cm, corresponding gestational age 4 week 6 days - Yolk sac: Not seen - Embryo: Not seen Possible gestational sac B: - Mean Sac Diameter: 0.3 cm, corresponding gestational age 4 week 6 days - Yolk sac: Not seen - Embryo: Not seen Right ovary: - Size : 4.7 x 2.4 x 3.1 cm - Normal sonographic appearance with physiologic follicles. Left ovary: - Size: 3.2 x 1.9 x 2.4 cm - Normal sonographic appearance with physiologic follicles. Pelvis free fluid: None. All documentation from previous visit of 08/10/2024 was copied and pasted, documentation has been reviewed and edited as necessary for today's visit. Assessment / Plan 19 year old at Unknown by LMP with PUL. We discussed at length the current placeholder diagnosis of of unknown location and contextualized this within expectations for normal versus abnormal hCG trends. We reviewed the current clinical priority is determining location due to the high level of risk associated with ectopic . If an intrauterine location is confirmed, the next step is to determine viability. Expected HCG increase for viable intrauterine : - 49% for an initial hCG level of less than 1,500 mIU/mL - 40% for an initial hCG level of 1,500-3,000 mIU/mL - 33% for an initial hCG level greater than 3,000 mIU/mL A increase less than the expected amount predicts a failing intrauterine or ectopic with 99% certainty. More than one abnormal trend increases the diagnostic certainty further. Expected HCG trend for spontaneous resolution of : The 95% predictive bound for the minimum hCG decline in women with resolving of unknown location ranges from 35-50% at 2 days spk95-66% at 7 days for starting hCG values of 250-5,000. Slower decreases are more common in women with lower initial HCGs. - Reviewed structure of the Early Assessment Clinic - Empathized with the emotional challenges inherent in this period of uncertainty Follow-up: - Follow-up plan was made with next hCG scheduled 08/15 - Signs and symptoms of ectopic were reviewed and patient instructed on how to contact the care team if symptoms develop I spent a total of 25 minutes on the date of the service which included preparing to see the patient, [id number] patient care, completing clinical documentation, obtaining and/or reviewing separately obtained history, counseling and educating the patient/family/caregiver, and communicating results to the patient/family/caregiver. Signature: Swati Gauthier APRN.CNP documented in this encounterGreen [facility]12-[facility]24 Telephone encounter Note * Telephone Encounter - Fernando Chong RN - 08/11/2024 5:58 AM EST Reason for Call: Patient states just found out she was yesterday when she was seen for same problem at ED and now having moderate to severe right lower abdominal pain again and was told to come back if that happened again but didn't know what to do. Patient has appointment with RN ORTHO soonbut has never seen before. Outcome: Patient advised to go to ED now per guidelines. Patient verbalized understanding of recommendation and care advice and will go to nearest ED now. Reason for Disposition [1] Abdominal pain AND [2] < 20 weeks MODERATE-SEVERE abdominal pain (e.g., interferes with normal activities, awakens from sleep) Protocols used: Abdominal Pain - [id number], - Abdominal Pain Less Than 20 Weeks [id number] [facility]12-05-2024 Miscellaneous Notes* Telephone Encounter - Fernando Chong RN - 08/11/2024 5:58 AM EST Reason for Call: Patient states just found out she was yesterday when she was seen for same problem at ED and now having moderate to severe right lower abdominal pain again and was told to come back if that happened again but didn't know what to do. Patient has appointment with RN ORTHO soonbut has never seen before. Outcome: Patient advised to go to ED now per guidelines. Patient verbalized understanding of recommendation and care advice and will go to nearest ED now. Reason for Disposition [1] Abdominal pain AND [2] < 20 weeks MODERATE-SEVERE abdominal pain (e.g., interferes with normal activities, awakens from sleep) Protocols used: Abdominal Pain - [id number], - Abdominal Pain Less Than 20 Weeks [id number] documented in this encounterGreen [facility] Hospital12-04-2024 Telephone encounter Note * Telephone Encounter - Shira Izquierdo APRN.BOOKING SUPERVISOR - 08/10/2024 8:41 AM EST [facility] RN Coordination Date of Referral: August 10, 2024 Reason for Referral: PUL Primary RN ORTHO Provider: ED Documentation of Patient Contact: Date: Contact Type: Details: Sign: August 10, 2024 Ref Review PUL Rh POS LMP ? [ ] Intro, trend HCG, schedule appt Last contact: HC (08/10) US: (08/10) ?GS x 2 EBr [facility]12-04-2024 Miscellaneous Notes* Telephone Encounter - Shira Izquierdo APRN.CNP - 08/10/2024 8:41 AM EST [facility] Assessment Clinic RN Coordination Date of Referral: August 10, 2024 Reason for Referral: PUL Primary RN ORTHO Provider: ED Documentation of Patient Contact: Date: Contact Type: Details: Sign: August 10, 2024 Ref Review PUL Rh POS LMP ? [ ] Intro, trend HCG, schedule appt Last contact: HC (08/10) US: (08/10) ?GS x 2 EBr documented in this encounterGreen Cross Hospital11-23-2024 NoteHNO ID: [id number] Author: DU TOLEDO APRN.CNP Service: ? Author Type: Nurse Practitioner Type: Progress Notes Filed: 07/30/2024 12:07 Note Text: This note was created using Begunriter. Subjective Rhonda Cohen is a 19 year old female. HPI by patient: Rhonda is a 19 year old presenting to the office with the complaint of abdominal pain. Also having pain with urination, odor, and grequency. Not sure if she has the flu, UTI or vaginal infection. Was seen a few days ago and has been waiting on culture results. Denies any other concerns Covid Immunization Dates Overdue - Covid-19 Vaccine ( season) Never done No completion, postpone, frequency change, or communication history exists for this topic. ALLERGIES Atarax [Hydroxyzine] Other: See Comments Comment:Patient has paradoxical effect, she is hyperalert and is up all night. Acetaminophen Diarrhea Chlorhexidine Rash Comment:Rash/burning Ciprofloxacin Other: See Comments Comment:Family history of the allergy Clindamycin Anaphylaxis Ibuprofen Diarrhea Lactose Diarrhea Peanut Butter Flavor Diarrhea, GI Upset Penicillins Other: See Comments Comment:06/29/23: Extensive family history of multiple antibiotic allergies including penicillins. Report multiple family members having anaphylaxis reactions. Red Dye Intolerance Tramadol Other: See Comments Comment:Blurred vision Zithromax [Azithrom* Diarrhea Family History Reviewed Including Cardiac Diseases, Psychiatric Diseases, AND Substance Abuse Problem: Fibromyalgia Relation: Mother Age of Onset: (Not Specified) Problem: Cervical Cancer Relation: Mother Age of Onset: (Not Specified) Problem: other (diverticulitis) Relation: Mother Age of Onset: (Not Specified) Problem: Kidney Disease Relation: Father Age of Onset: (Not Specified) Problem: No Known Problems Relation: Sister Age of Onset: (Not Specified) Problem: Kidney stones Relation: Brother Age of Onset: (Not Specified) Problem: No Known Problems Relation: Brother Age of Onset: (Not Specified) Problem: No Known Problems Relation: Brother Age of Onset: (Not Specified) Problem: Bipolar disorder Relation: Maternal Grandmother Age of Onset: (Not Specified) Problem: other (endometriosis) Relation: Maternal Grandmother Age of Onset: (Not Specified) Problem: Heart Relation: Maternal Grandfather Age of Onset: (Not Specified) Problem: No Known Problems Relation: Paternal Grandmother Age of Onset: (Not Specified) Problem: Heart Attack Relation: Paternal Grandfather Age of Onset: (Not Specified) Problem: other (endometriosis) Relation: Other Age of Onset: (Not Specified) Social History Tobacco Use Smoking status: Never Passive exposure: Never Smokeless tobacco: Never Vaping Use Vaping status: Never Used Alcohol use: Never Drug use: Never Review of Systems Constitutional: Negative for chills and fever. Gastrointestinal: Positive for abdominal pain. Negative for nausea and vomiting. Genitourinary: Positive for dysuria, frequency and pelvic pain. Negative for flank pain, hematuria, urgency and vaginal discharge. Allergic/Immunologic: Negative for immunocompromised state. Objective Resp 18 Ht 162.6 cm (5' 4) Wt 62.9 kg (138 lb 12.5 oz) LMP 12/03/2023 (Exact Date) BMI 23.82 kg/m? Physical Exam Vitals and nursing note reviewed. Constitutional: Appearance: She is well-developed. Cardiovascular: Rate and Rhythm: Normal rate and regular rhythm. Heart sounds: Normal heart sounds. Pulmonary: Effort: Pulmonary effort is normal. Breath sounds: Normal breath sounds. Abdominal: General: Bowel sounds are normal. Palpations: Abdomen is soft. Tenderness: There is no abdominal tenderness. Skin: General: Skin is warm and dry. Neurological: Mental Status: She is alert and oriented to person, place, and time. Assessment and Plan ASSESSMENT/PLAN: 1. Abdominal pain, unspecified abdominal location - ICD9: 789.00, ICD10: R10.9 (primary diagnosis) - COVID AND INFLUENZA A/B AND RSV PCR, ROUTINE - BACTERIAL VAGINOSIS NAAT - KANG/TRICHOMONAS NAAT - URINE CULTURE 2. Recurrent UTI (urinary tract infection) - ICD9: 599.0, ICD10: N39.0 acute - Patient education for prevention given - Antibiotic ready at pharm from yesterday Du Toledo APRN.CNP Medical Decision Making: Problems: Moderate: New problem with uncertain prognosis Risk: Moderate: Drug management Medical Decision Making [facility]: [facility] Present illness Narrative* Du Toledo APRN.CNP - 07/30/2024 11:42 AM EST This note was created using NoteWriter. Subjective Rhonda Cohen is a 19 year old female. HPI by patient: Rhonda is a 19 year old presenting to the office with the complaint of abdominal pain. Also having pain with urination, odor, and grequency. Not sure if she has the flu, UTI or vaginal infection. Wasseen a few days ago and has been waiting on culture results. Denies any other concerns Covid Immunization Dates Overdue - Covid-19 Vaccine ( season) Never done No completion, postpone, frequency change, or communication history exists for this topic. ALLERGIES Atarax [Hydroxyzine] Other: See Comments Comment:Patient has paradoxical effect, she is hyperalert and is up all night. Acetaminophen Diarrhea Chlorhexidine Rash Comment:Rash/burning Ciprofloxacin Other: See Comments Comment:Family history of the allergy Clindamycin Anaphylaxis Ibuprofen Diarrhea Lactose Diarrhea Peanut Butter Flavor Diarrhea, GI Upset Penicillins Other: See Comments Comment:06/29/23: Extensive family history of multiple antibiotic allergies including penicillins. Report multiple family members having anaphylaxis reactions. Red Dye Intolerance Tramadol Other: See Comments Comment:Blurred vision Zithromax [Azithrom* Diarrhea Family History Reviewed Including Cardiac Diseases, Psychiatric Diseases, & Substance Abuse Problem: Fibromyalgia Relation: Mother Age of Onset: (Not Specified) Problem: Cervical Cancer Relation: Mother Age of Onset: (Not Specified) Problem: other (diverticulitis) Relation: Mother Age of Onset: (Not Specified) Problem: Kidney Disease Relation: Father Age of Onset: (Not Specified) Problem: No Known Problems Relation: Sister Age of Onset: (Not Specified) Problem: Kidney stones Relation: Brother Age of Onset: (Not Specified) Problem: No Known Problems Relation: Brother Age of Onset: (Not Specified) Problem: No Known Problems Relation: Brother Age of Onset: (Not Specified) Problem: Bipolar disorder Relation: Maternal Grandmother Age of Onset: (Not Specified) Problem: other (endometriosis) Relation: Maternal Grandmother Age of Onset: (Not Specified) Problem: Heart Relation: Maternal Grandfather Age of Onset: (Not Specified) Problem: No Known Problems Relation: Paternal Grandmother Age of Onset: (Not Specified) Problem: Heart Attack Relation: Paternal Grandfather Age of Onset: (Not Specified) Problem: other (endometriosis) Relation: Other Age of Onset: (Not Specified) Social History Tobacco Use Smoking status: Never Passive exposure: Never Smokeless tobacco: Never Vaping Use Vaping status: Never Used Alcohol use: Never Drug use: Never Review of Systems Constitutional: Negative for chills and fever. Gastrointestinal: Positive for abdominal pain. Negative for nausea and vomiting. Genitourinary: Positive for dysuria, frequency and pelvic pain. Negative for flank pain, hematuria,urgency and vaginal discharge. Allergic/Immunologic: Negative for immunocompromised state. Objective Resp 18 Ht 162.6 cm (5' 4) Wt 62.9 kg (138 lb 12.5 oz) LMP 12/03/2023 (Exact Date) BMI 23.82 kg/m Physical Exam Vitals and nursing note reviewed. Constitutional: Appearance: She is well-developed. Cardiovascular: Rate and Rhythm: Normal rate and regular rhythm. Heart sounds: Normal heart sounds. Pulmonary: Effort: Pulmonary effort is normal. Breath sounds: Normal breath sounds. Abdominal: General: Bowel sounds are normal. Palpations: Abdomen is soft. Tenderness: There is no abdominal tenderness. Skin: General: Skin is warm and dry. Neurological: Mental Status: She is alert and oriented to person, place, and time. Assessment and Plan ASSESSMENT/PLAN: 1. Abdominal pain, unspecified abdominal location - ICD9: 789.00, ICD10: R10.9 (primary diagnosis) - COVID & INFLUENZA A/B & RSV PCR, ROUTINE - BACTERIAL VAGINOSIS NAAT - KANG/TRICHOMONAS NAAT - URINE CULTURE 2. Recurrent UTI (urinary tract infection) - ICD9: 599.0, ICD10: N39.0 acute - Patient education for prevention given - Antibiotic ready at pharm from yesterday Du Toledo APRN.CNP Medical Decision Making: Problems: Moderate: New problem with uncertain prognosis Risk: Moderate: Drug management Medical Decision Making Level: 4 - Moderate [facility] Inst[facility]* Patient Instructions* Du Toledo APRN.CNP - 07/30/2024 11:42 AM EST -Increase fluids. Focus on clears. -Decrease sugary drink intake. Minimize caffeine. -Wipe front to back. No tight clothing. No bubble baths. -Results will be released to [facility] unless there is a need for a change in medication. -If no improvement in 3-5 days please be re-seen. -Be seen immediately or go to the ER with worsening/warning symptoms. Warning symptoms include: chills, severe flank pain, severe abdominal/pelvic pain, fevers 101 or higher, chest pain, and respiratory distress. Certain foods and beverages might irritate your bladder, including: Coffee, tea and carbonated drinks, even without caffeine. Alcohol. Certain acidic fruits -- oranges, grapefruits, latoya and limes -- and fruit juices. Spicy foods. Tomato-based products. Carbonated drinks. Chocolate. Bacterial Vaginosis What is bacterial vaginosis? Bacterial vaginosis (BV) is a common infection that occurs in a woman's vagina. Bacterial vaginosisdoes not usually cause serious health problems, except in women. What causes BV? Health care providers do not yet fully understand what causes BV. Bacteria are a natural part of the vagina. For some reason, something upsets the normal balance of bacteria. Some of the bacteria grow too rapidly and cause infection. What are the symptoms of BV? Unfortunately, almost 50 percent of the women who have bacterial vaginosis do not have any symptoms. Common symptoms of BV include: White or discolored discharge Discharge that smells fishy Fishy smell that is strongest after sex Other symptoms can include: Itchy vagina Sore vagina Because BV has symptoms that are similar to other infections, it is important that you visit your health care provider if you think you have an infection in your vagina. Who can get BV? Any woman can get BV. The infection is most common in women between the ages of 18 and 44. BV is most common in sexually active women, although sexual transmission of BV has never been proven. Women who are not engaging in sex can also get BV. You may have a higher risk of getting BV if you: Have many sex partners Have a sexually transmitted infection (STI) How can I know if I have BV? Your health care provider can tell you if you have BV. He or she will examine you and will take a sample of fluid from your vagina. The fluid is viewed under a microscope. In most cases, your health care provider can tell right away if you have BV. How is BV treated? Bacterial vaginosis is treated using medicines that kill the infection. The most common medicine ordered for BV is called metronidazole. Common product names for this medicine are Flagyl and Protostat . Metronidazole may be given as a pill that is taken by mouth. It may also be given as a vaginal gel. Does the medication have side effects? Yes. You may have: Upset stomach Metal taste in your mouth Heartburn Don't drink alcohol while you are taking metronidazole. You can become very sick to your stomach. Call your health care provider if you have these or any other side effects. Can I treat myself for BV? No. Bacterial vaginosis can only be treated with medicines ordered by your health care provider. You cannot purchase [id number] products to treat BV. Products for douching and treating yeast infections will not cure BV. Should I be treated for BV if I am ? Yes, but not during the first three months of . Some studies have shown that having the infection during may cause early labor and premature . Tell your health care provider if you are . Also let your health care provider know if you think that you might be . You and your health care provider should discuss whether or not the infection should be treated. How can I protect myself from BV? Ways to prevent BV are not yet known. Female hygiene products like douches and deodorants will not cure the infection. These products may make the infection worse. To maintain your overall good health: Eat a well-balanced diet Exercise Manage stress levels Get a pelvic exam as directed by your provider When should I call my doctor? You should call your health care provider any time if: Your vaginal discharge changes color, becomes heavier, or smells different You notice itching, burning, swelling, or soreness around the vagina Copyright 5083-2192 The [facility]. All rights reserved. This information is provided by the [facility] and is not intended to replace the medical advice of your doctor or health care provider. Please consult your health care provider for advice about a specific medical condition. For additional written health information, please contact the [facility] at the [facility] or toll-free extension [phone] or visit [email or web address] This document was last reviewed on: 2010 documented in this encounter[facility]11-[facility] Telephone encounter Note * Telephone Encounter - uD Toledo APRN.CNP - 07/29/2024 12:40 PM EST Macrobid sent to [facility]11-[facility]-20[facility] Miscellaneous Notes* Telephone Encounter - Du Toledo APRN.CNP - 07/29/2024 12:40 PM EST Macrobid sent to [facility] documented in this encounterGreen Cross [facility]11-20-2024 NoteHNO ID: [id number] Author: YANCI LEWIS APRN.BOOKING SUPERVISOR Service: ? Author Type: Nurse Practitioner Type: Progress Notes Filed: 07/27/2024 18:35 Note Text: This note was created using NoteWriter. Subjective Rhonda Cohen is a 19 year old female. HPI by patient: Rhonda Cohen is a 19 year old presenting to the office with the complaint of uti symptoms. Started today. Associated symptoms include painful urination and frequency. Has some nausea. Denies fever and vomiting. Isn't trying to get but isn't preventing. Last cycle was a couple weeks ago. OTC not used. No antibiotic use in the last 60 days. ALLERGIES Atarax [Hydroxyzine] Other: See Comments Comment:Patient has paradoxical effect, she is hyperalert and is up all night. Acetaminophen Diarrhea Chlorhexidine Rash Comment:Rash/burning Ciprofloxacin Other: See Comments Comment:Family history of the allergy Clindamycin Anaphylaxis Ibuprofen Diarrhea Lactose Diarrhea Peanut Butter Flavor Diarrhea, GI Upset Penicillins Other: See Comments Comment:06/29/23: Extensive family history of multiple antibiotic allergies including penicillins. Report multiple family members having anaphylaxis reactions. Red Dye Intolerance Tramadol Other: See Comments Comment:Blurred vision Zithromax [Azithrom* Diarrhea Family History Reviewed Including Cardiac Diseases, Psychiatric Diseases, AND Substance Abuse Problem: Fibromyalgia Relation: Mother Age of Onset: (Not Specified) Problem: Cervical Cancer Relation: Mother Age of Onset: (Not Specified) Problem: other (diverticulitis) Relation: Mother Age of Onset: (Not Specified) Problem: Kidney Disease Relation: Father Age of Onset: (Not Specified) Problem: No Known Problems Relation: Sister Age of Onset: (Not Specified) Problem: Kidney stones Relation: Brother Age of Onset: (Not Specified) Problem: No Known Problems Relation: Brother Age of Onset: (Not Specified) Problem: No Known Problems Relation: Brother Age of Onset: (Not Specified) Problem: Bipolar disorder Relation: Maternal Grandmother Age of Onset: (Not Specified) Problem: other (endometriosis) Relation: Maternal Grandmother Age of Onset: (Not Specified) Problem: Heart Relation: Maternal Grandfather Age of Onset: (Not Specified) Problem: No Known Problems Relation: Paternal Grandmother Age of Onset: (Not Specified) Problem: Heart Attack Relation: Paternal Grandfather Age of Onset: (Not Specified) Problem: other (endometriosis) Relation: Other Age of Onset: (Not Specified) Social History Tobacco Use Smoking status: Never Passive exposure: Never Smokeless tobacco: Never Vaping Use Vaping status: Never Used Alcohol use: Never Drug use: Never Active Ambulatory Problems Nausea AND vomiting Date Noted: 10/31/2021 Diarrhea Date Noted: 10/31/2021 Abdominal pain Date Noted: 10/31/2021 Adjustment disorder Date Noted: 10/31/2021 Irregular menstrual cycle Date Noted: 05/01/2022 Colitis Date Noted: 06/29/2023 Depression Date Noted: 07/01/2023 Anxiety Date Noted: 07/01/2023 High anion gap metabolic acidosis Date Noted: 07/04/2023 Ketosis (HCC) Date Noted: 07/04/2023 Chronic migraine w/o aura w/o status migrainosus, not intractable Date Noted: 01/22/2024 Regular astigmatism of both eyes Date Noted: 01/22/2024 Resolved Ambulatory Problems Abdominal pain of unknown etiology Date Noted: 10/31/2021 Past Medical History: No date: Anxiety and depression No date: History of IBS Review of Systems HENT: Negative. Eyes: Negative. Respiratory: Negative. Cardiovascular: Negative. Gastrointestinal: Positive for nausea. Negative for vomiting. Endocrine: Negative. Genitourinary: Positive for dysuria and frequency. Musculoskeletal: Negative. Skin: Negative. Neurological: Negative. Hematological: Negative. Objective BP 110/85 Pulse 99 Wt 64.9 kg (143 lb 3 oz) LMP 12/03/2023 (Exact Date) SpO2 100% BMI 24.58 kg/m? Physical Exam Vitals reviewed. Constitutional: General: She is not in acute distress. Appearance: She is not ill-appearing, toxic-appearing or diaphoretic. Cardiovascular: Rate and Rhythm: Normal rate and regular rhythm. Pulmonary: Effort: Pulmonary effort is normal. Abdominal: General: Bowel sounds are normal. Palpations: Abdomen is soft. Tenderness: There is generalized abdominal tenderness. There is no right CVA tenderness, left CVA tenderness, guarding or rebound. Neurological: Mental Status: She is alert. Assessment and Plan (R30.0) Dysuria (primary encounter diagnosis) Plan: URINE CULTURE (R11.0) Nausea Plan: HCG QUAL UR B/O UA only shows trace leukocytes. Will send culture and start pyridium. -Negative hcg in office. -Increase fluids. Focus on clears. -Decrease sugary drink intake. Minimize caffeine. -Wipe front to back. No tight clothing. No bubble bath (more content not included)...[facility] History of Present illness Narrative* Yanci Lewis APRN.IFTIKHAR - 07/27/2024 6:19 PM EST This note was created using NoteWriter. Subjective Rhonda Cohen is a 19 year old female. HPI by patient: Rhonda Cohen is a 19 year old presenting to the office with the complaint of uti symptoms. Started today. Associated symptoms include painful urination and frequency. Has some nausea. Denies fever and vomiting. Isn't trying to get but isn't preventing. Last cycle was a couple weeks ago. OTC not used. No antibiotic use in the last 60 days. ALLERGIES Atarax [Hydroxyzine] Other: See Comments Comment:Patient has paradoxical effect, she is hyperalert and is up all night. Acetaminophen Diarrhea Chlorhexidine Rash Comment:Rash/burning Ciprofloxacin Other: See Comments Comment:Family history of the allergy Clindamycin Anaphylaxis Ibuprofen Diarrhea Lactose Diarrhea Peanut Butter Flavor Diarrhea, GI Upset Penicillins Other: See Comments Comment:06/29/23: Extensive family history of multiple antibiotic allergies including penicillins. Report multiple family members having anaphylaxis reactions. Red Dye Intolerance Tramadol Other: See Comments Comment:Blurred vision Zithromax [Azithrom* Diarrhea Family History Reviewed Including Cardiac Diseases, Psychiatric Diseases, & Substance Abuse Problem: Fibromyalgia Relation: Mother Age of Onset: (Not Specified) Problem: Cervical Cancer Relation: Mother Age of Onset: (Not Specified) Problem: other (diverticulitis) Relation: Mother Age of Onset: (Not Specified) Problem: Kidney Disease Relation: Father Age of Onset: (Not Specified) Problem: No Known Problems Relation: Sister Age of Onset: (Not Specified) Problem: Kidney stones Relation: Brother Age of Onset: (Not Specified) Problem: No Known Problems Relation: Brother Age of Onset: (Not Specified) Problem: No Known Problems Relation: Brother Age of Onset: (Not Specified) Problem: Bipolar disorder Relation: Maternal Grandmother Age of Onset: (Not Specified) Problem: other (endometriosis) Relation: Maternal Grandmother Age of Onset: (Not Specified) Problem: Heart Relation: Maternal Grandfather Age of Onset: (Not Specified) Problem: No Known Problems Relation: Paternal Grandmother Age of Onset: (Not Specified) Problem: Heart Attack Relation: Paternal Grandfather Age of Onset: (Not Specified) Problem: other (endometriosis) Relation: Other Age of Onset: (Not Specified) Social History Tobacco Use Smoking status: Never Passive exposure: Never Smokeless tobacco: Never Vaping Use Vaping status: Never Used Alcohol use: Never Drug use: Never Active Ambulatory Problems Nausea & vomiting Date Noted: 10/31/2021 Diarrhea Date Noted: 10/31/2021 Abdominal pain Date Noted: 10/31/2021 Adjustment disorder Date Noted: 10/31/2021 Irregular menstrual cycle Date Noted: 05/01/2022 Colitis Date Noted: 06/29/2023 Depression Date Noted: 07/01/2023 Anxiety Date Noted: 07/01/2023 High anion gap metabolic acidosis Date Noted: 07/04/2023 Ketosis (HCC) Date Noted: 07/04/2023 Chronic migraine w/o aura w/o status migrainosus, not intractable Date Noted: 01/22/2024 Regular astigmatism of both eyes Date Noted: 01/22/2024 Resolved Ambulatory Problems Abdominal pain of unknown etiology Date Noted: 10/31/2021 Past Medical History: No date: Anxiety and depression No date: History of IBS Review of Systems HENT: Negative. Eyes: Negative. Respiratory: Negative. Cardiovascular: Negative. Gastrointestinal: Positive for nausea. Negative for vomiting. Endocrine: Negative. Genitourinary: Positive for dysuria and frequency. Musculoskeletal: Negative. Skin: Negative. Neurological: Negative. Hematological: Negative. Objective BP 110/85 Pulse 99 Wt 64.9 kg (143 lb 3 oz) LMP 12/03/2023 (Exact Date) SpO2 100% BMI 24.58 kg/m Physical Exam Vitals reviewed. Constitutional: General: She is not in acute distress. Appearance: She is not ill-appearing, toxic-appearing or diaphoretic. Cardiovascular: Rate and Rhythm: Normal rate and regular rhythm. Pulmonary: Effort: Pulmonary effort is normal. Abdominal: General: Bowel sounds are normal. Palpations: Abdomen is soft. Tenderness: There is generalized abdominal tenderness. There is no right CVA tenderness, left CVA tenderness, guarding or rebound. Neurological: Mental Status: She is alert. Assessment and Plan (R30.0) Dysuria (primary encounter diagnosis) Plan: URINE CULTURE (R11.0) Nausea Plan: HCG QUAL UR B/O UA only shows trace leukocytes. Will send culture and start pyridium. -Negative hcg in office. -Increase fluids. Focus on clears. -Decrease sugary drink intake. Minimize caffeine. -Wipe front to back. No tight clothing. No bubble baths. -Results will be released to [facility] unless there is a need for a change in medication. -If no improvement in 3-5 days please be re-seen by primary care. -Be seen immediately or go to the ER with worsening/warning symptoms. Warning symptoms include: chills, severe flank pain, severe abdominal/pelvic pain, fevers 101 or higher, chest pain, and respiratory distress. The patient will pursue further outpatient evaluation with the primary care physician or another Urgent Care/Express Care as outlined in the after visit summary. The patient is agreeable to this planof care and follow-up instructions have been explained in detail. The patient has received these instructions in written format and have expressed an understanding of the after visit summary. Medical Decision Making: Level: 4 - Moderate I spent a total of 20 minutes on the date of the service which included preparing to see the patient, [id number] patient care, completing clinical documentation, obtaining and/or reviewing separately obtained history, performing a medically appropriate examination, counseling and educating the pat ient/family/caregiver, and ordering medications, tests, or procedures. documented in this encounterGreen [facility] Hospital11-20-[facility]24 Instructions* Patient Instructions* Yanci Lewis APRN.CNP - 07/27/2024 6:18 PM EST (R30.0) Dysuria (primary encounter diagnosis) Plan: URINE CULTURE (R11.0) Nausea Plan: HCG QUAL UR B/O UA only shows trace leukocytes. Will send culture and start pyridium. -Negative hcg in office. -Increase fluids. Focus on clears. -Decrease sugary drink intake. Minimize caffeine. -Wipe front to back. No tight clothing. No bubble baths. -Results will be released to [facility] unless there is a need for a change in medication. -If no improvement in 3-5 days please be re-seen by primary care. -Be seen immediately or go to the ER with worsening/warning symptoms. Warning symptoms include: chills, severe flank pain, severe abdominal/pelvic pain, fevers 101 or higher, chest pain, and respiratory distress. Certain foods and beverages might irritate your bladder, including: Coffee, tea and carbonated drinks, even without caffeine. Alcohol. Certain acidic fruits -- oranges, grapefruits, latoya and limes -- and fruit juices. Spicy foods. Tomato-based products. Carbonated drinks. Chocolate. documented in this encounterGreen Cross Hospital10-28-2024 Instructions* Patient Instructions* Alisha Baker PA-C - 07/04/2024 7:15 PM EDT ASSESSMENT/PLAN: 1. Noninfected skin tear of leg, right, initial encounter - - MUPIROCIN 2 % TOPICAL OINTMENT - Follow up with your PCP - Monitor for signs of worsening infection- more red, swollen, painful, hot, red streaking, fever, etc- seek further evaluation Call PCP if symptoms worsen or no better. If symptoms worsen, or new symptoms develop go to ER. If you have worsening of breathing or breathing changes- go to ER. If you have persistent fever unrelieved by Tylenol/Motrin- go to the ER. Follow up as needed. Barriers to learning: none. The patient verbalizes understanding and is in agreement with plan of care. Alisha Baker PA-C documented in this encounterGreen Cross Hospital10-28-2024 NoteHNO ID: [id number] Author: ALISHA BAKER PA-C Service: ? Author Type: Physician Study Assistant Type: Progress Notes Filed: 07/04/2024 19:25 Note Text: 07/04/2024 Patient presents with: Derm Problem: skin tear SUBJECTIVE: This is a 19 year old female that is here today for a skin tear to her right thigh. She pulled an adhesive cover off of a near by new tattoo, and it peeled off a dime-sized area of skin- 2 days ago. It stings and she is concerned it will get infected. No edema, erythema, warmth, or drainage. No red streaking. She has put numbing antibiotic ointment on it. No sick symptoms. Denies fever, chills, sweats, ill feeling, or fatigue. Patient denies shortness of breath, increased WOB, or chest pain. Pain on scale of 0-10 with 0 being no pain and 10 being greatest pain: - Nothing makes the symptoms better. Nothing makes them worse. Self-treatment:. See HPI Barriers to learning: none. Reviewed meds, OTCs, herbals or supplements. Reviewed allergies, medications, social history, and past medical history.. The severity is mild and the symptoms are not improving. The patient did not have a similar problem in the last 3 months. The patient did not take any antibiotics in the last 3 months. PAST MEDICAL HISTORY Diagnosis Date Anxiety and depression History of IBS ALLERGIES Atarax [Hydroxyzine], Acetaminophen, Chlorhexidine, Ciprofloxacin, Clindamycin, Ibuprofen, Lactose, Peanut Butter Flavor, Penicillins, Red Dye, Tramadol, and Zithromax [Azithromycin] MEDICATIONS Current Outpatient Medications Medication Sig mupirocin (BACTROBAN) 2 % ointment Apply to affected area three times a day for 10 days. omeprazole (PRILOSEC) 40 mg capsule Take 1 capsule by mouth once daily. fexofenadine (MELISA) 180 mg tablet Take 1 tablet by mouth four times daily. gabapentin (NEURONTIN) 300 mg capsule Take 1 capsule by mouth as directed for 60 days. fluticasone (FLONASE ALLERGY RELIEF) 50 mcg/actuation nasal spray Use 1 [place] in each nostril once daily. Kiapxpkqqmvbgai-Ochqfuuew-EJ (BROMFED DM) 2-30-10 mg/5 mL syrup Take 5 mL by mouth four times a day as needed. diphenhydrAMINE (BENADRYL) 25 mg capsule hyoscyamine sublingual (LEVSIN/SL) 0.125 mg Dissolve 1 tablet under the tongue every 4 hours as needed (abdominlal pain). cholecalciferol, Vitamin D3, (VITAMIN D3) 1,250 mcg (50,000 unit) cap capsule Take 1 capsule by mouth one time a week. DULoxetine (CYMBALTA) 20 mg capsule Take 1 capsule by mouth once daily. peppermint oil (IBGARD) 90 mg CECX Take 1 capsule by mouth once daily as needed (INTESTINAL UPSET). No current facility-administered medications for this visit. SOCIAL HISTORY Social History Tobacco Use Smoking status: Never Passive exposure: Never Smokeless tobacco: Never Vaping Use Vaping status: Never Used Substance Use Topics Alcohol use: Never Drug use: Never REVIEW OF SYSTEMS Review of Systems ROS: constitutional-neg, HENT-neg, Eyes- neg, heart-neg, respiratory-neg, lymph-neg, skin- skin tear MSK- neg, - All systems neg except as noted above in HPI. OBJECTIVE: Pulse 74 Temp 36.9 ?C (98.4 ?F) Resp 18 Wt 63.6 kg (140 lb 3.4 oz) LMP 12/03/2023 (Exact Date) SpO2 99% BMI 24.07 kg/m? . Vital signs reviewed by this provider. Physical Exam Vitals reviewed. Constitutional: General: She is not in acute distress. Appearance: Normal appearance. She is well-developed and normal weight. She is not ill-appearing, toxic-appearing or diaphoretic. HENT: Head: Normocephalic and atraumatic. Skin: General: Skin is warm. Capillary Refill: Capillary refill takes less than 2 seconds. Findings: Wound present. No abrasion, abscess, acne, bruising, burn, ecchymosis, erythema, signs of injury, laceration, lesion, petechiae or rash. Neurological: General: No focal deficit present. Mental Status: She is alert and oriented to person, place, and time. Sensory: Sensation is intact. Psychiatric: Behavior: Behavior is cooperative. ASSESSMENT/PLAN: 1. Noninfected skin tear of leg, right, initial encounter - ICD9: 891.0, ICD10: S81.811A - MUPIROCIN 2 % TOPICAL OINTMENT - She wants to avoid oral antibiotics due to her many antibiotic allergies - Follow up with your PCP - Monitor for signs of worsening infection- more red, swollen, painful, hot, red streaking, fever, etc- seek further evaluation Call PCP if symptoms worsen or no better. If symptoms worsen, or new symptoms develop go to ER. If you have worsening of breathing or breathing changes- go to ER. If you have persistent fever unrelieved by Tylenol/Motrin- go to the ER. Follow up as needed. Barriers to learning: none. The patient verbalizes understanding and is in agreement with plan of care. Alisha Baker PA-C Medical Decision Making: Problems: Low: Acute, uncomplicated illness or injury Risk: Low: Low risk from testing/treatment Moderate: Drug m (more content not included)...[facility] 07-04-2024 History of Present illness Narrative* Alisha Baker PA-C - 07/04/2024 7:03 PM EDT Images from the original note were not included. 07/04/2024 Patient presents with: Derm Problem: skin tear SUBJECTIVE: This is a 19 year old female that is here today for a skin tear to her right thigh. She pulled an adhesive cover off of a near by new tattoo, and it peeled off a dime-sized area of skin- 2 days ago. It stings and she is concerned it will get infected. No edema, erythema, warmth, or drainage. No red streaking. She has put numbing antibiotic ointment on it. No sick symptoms. Denies fever, chills, sweats, ill feeling, or fatigue. Patient denies shortness of breath, increased WOB, or chest pain. Pain on scale of 0-10 with 0 being no pain and 10 being greatest pain: - Nothing makes the symptoms better. Nothing makes them worse. Self-treatment:. See HPI Barriers to learning: none. Reviewed meds, OTCs, herbals or supplements. Reviewed allergies, medications, social history, and past medical history.. The severity is mild and the symptoms are not improving. The patient did not have a similar problem in the last 3 months. The patient did not take any antibiotics in the last 3 months. PAST MEDICAL HISTORY Diagnosis Date Anxiety and depression History of IBS ALLERGIES Atarax [Hydroxyzine], Acetaminophen, Chlorhexidine, Ciprofloxacin, Clindamycin, Ibuprofen, Lactose, Peanut Butter Flavor, Penicillins, Red Dye, Tramadol, and Zithromax [Azithromycin] MEDICATIONS Current Outpatient Medications Medication Sig mupirocin (BACTROBAN) 2 % ointment Apply to affected area three times a day for 10 days. omeprazole (PRILOSEC) 40 mg capsule Take 1 capsule by mouth once daily. fexofenadine (MELISA) 180 mg tablet Take 1 tablet by mouth four times daily. gabapentin (NEURONTIN) 300 mg capsule Take 1 capsule by mouth as directed for 60 days. fluticasone (FLONASE ALLERGY RELIEF) 50 mcg/actuation nasal spray Use 1 [place] in each nostril once daily. Mhkqaxlvlsoeuth-Vbobumqcl-SB (BROMFED DM) 2-30-10 mg/5 mL syrup Take 5 mL by mouth four times a dayas needed. diphenhydrAMINE (BENADRYL) 25 mg capsule hyoscyamine sublingual (LEVSIN/SL) 0.125 mg Dissolve 1 tablet under the tongue every 4 hours as needed (abdominlal pain). cholecalciferol, Vitamin D3, (VITAMIN D3) 1,250 mcg (50,000 unit) cap capsule Take 1 capsule by mouth one time a week. DULoxetine (CYMBALTA) 20 mg capsule Take 1 capsule by mouth once daily. peppermint oil (IBGARD) 90 mg CECX Take 1 capsule by mouth once daily as needed (INTESTINAL UPSET). No current facility-administered medications for this visit. SOCIAL HISTORY Social History Tobacco Use Smoking status: Never Passive exposure: Never Smokeless tobacco: Never Vaping Use Vaping status: Never Used Substance Use Topics Alcohol use: Never Drug use: Never REVIEW OF SYSTEMS Review of Systems ROS: constitutional-neg, HENT-neg, Eyes- neg, heart-neg, respiratory-neg, lymph- neg, skin- skin tear MSK- neg, - All systems neg except as noted above in HPI. OBJECTIVE: Pulse 74 Temp 36.9 C (98.4 F) Resp 18 Wt 63.6 kg (140 lb 3.4 oz) LMP 12/03/2023 (Exact Date) SpO2 99% BMI 24.07 kg/m . Vital signs reviewed by this provider. Physical Exam Vitals reviewed. Constitutional: General: She is not in acute distress. Appearance: Normal appearance. She is well-developed and normal weight. She is not ill-appearing, toxic-appearing or diaphoretic. HENT: Head: Normocephalic and atraumatic. Skin: General: Skin is warm. Capillary Refill: Capillary refill takes less than 2 seconds. Findings: Wound present. No abrasion, abscess, acne, bruising, burn, ecchymosis, erythema, signs ofinjury, laceration, lesion, petechiae or rash. Neurological: General: No focal deficit present. Mental Status: She is alert and oriented to person, place, and time. Sensory: Sensation is intact. Psychiatric: Behavior: Behavior is cooperative. ASSESSMENT/PLAN: 1. Noninfected skin tear of leg, right, initial encounter - ICD9: 891.0, ICD10: S81.811A - MUPIROCIN 2 % TOPICAL OINTMENT - She wants to avoid oral antibiotics due to her many antibiotic allergies - Follow up with your PCP - Monitor for signs of worsening infection- more red, swollen, painful, hot, red streaking, fever, etc- seek further evaluation Call PCP if symptoms worsen or no better. If symptoms worsen, or new symptoms develop go to ER. If you have worsening of breathing or breathing changes- go to ER. If you have persistent fever unrelieved by Tylenol/Motrin- go to the ER. Follow up as needed. Barriers to learning: none. The patient verbalizes understanding and is in agreement with plan of care. Alisha Baker PA-C Medical Decision Making: Problems: Low: Acute, uncomplicated illness or injury Risk: Low: Low risk from testing/treatment Moderate: Drug management Medical Decision Making Level: 3 - Low I spent a total of 20 minutes on the date of the service which included preparing to see the patient, [id number] patient care, completing clinical documentation, performing a medically appropriate examination, counseling and educating the patient/family/caregiver, and ordering medications, tests,or procedures. documented in this encounterGreen Cross Hospital10-01-2024 NoteHNO ID: [id number] Author: DEANNA SANZ RN Service: ? Author Type: Registered Nurse Type: Progress Notes Filed: 06/07/2024 13:56 Note Text: Patient came to PCP office for tdap vaccine. She is identified by name and date of . VIS provided and allergies reviewed. Reviewed order with a second caregiver. Administered tdap injection IM to L deltoid. 5 minutes after receiving the vaccine, she states she felt a little bit lightheaded. She states she has not eaten much today. Provided patient a kay cracker to eat. Water offered, declined. Vitals taken and recorded. After 20 minutes patient felt well to leave with a building performance specialist. She walked out without assistance. [facility] History of Present illness Narrative* Deanna Sanz RN - 06/07/2024 1:32 PM EDT Patient came to PCP office for tdap vaccine. She is identified by name and date of . VIS provided and allergies reviewed. Reviewed order with a second caregiver. Administered tdap injection IM to L deltoid. 5 minutes after receiving the vaccine, she states she felt a little bit lightheaded. She states she has not eaten much today. Provided patient a kay cracker to eat. Water offered, declined. Vitals taken and recorded. After 20 minutes patient felt well to leave with a building performance specialist. She walked out without assistance. Deanna Sanz RN documented in this encounterGreen Cross Hospital09-03-2024 Telephone encounter Note * Telephone Encounter - Deanna Sanz RN - 05/10/2024 9:07 AM EDT Last office visit 10/05/23. Patient is scheduled as a nurse visit today for tetanus shot. Please sign order. [facility]09-03-[facility] Miscellaneous Notes* Telephone Encounter - Deanna Sanz RN - 05/10/2024 9:07 AM EDT Last office visit 10/05/23. Patient is scheduled as a nurse visit today for tetanus shot. Please sign order. documented in this encounterGreen Cross Hospital07-22-2024 Telephone encounter Note * Telephone Encounter - Emily Little MA - 03/28/2024 8:24 AM EDT Please see patient most recent mychart message, review and reply. Thank you! Emily Little CMA March 28, 2024 8:25 AM [facility]07-[facility] Miscellaneous Notes* Telephone Encounter - Emily Little MA - 03/28/2024 8:24 AM EDT Please see patient most recent mychart message, review and reply. Thank you! Emily Little CMA March 28, 2024 8:25 AM * Telephone Encounter - Odalis Doe LPN - 03/28/2024 7:07 AM EDT Please see the following patient message and advise. Thank you, Odlais Romero LPN March 28, 2024 7:07 AM * Telephone Encounter - Jenifer Wang RN - 03/25/2024 3:09 PM EDT Please see pt message Jenifer Wang RN March 25, 2024 3:09 PM * Telephone Encounter - Masood Matamoros OCCA - 03/24/2024 9:25 AM EDT See pt message CASSANDRA Simental March 24, 2024 9:26 AM documented in this encounterGreen Cross Hospital07-22-2024 Telephone encounter Note * Telephone Encounter - Odalis Doe LPN - 03/28/2024 7:07 AM EDT Please see the following patient message and advise. Thank you, Odalis Romero LPN March 28, 2024 7:07 AM [facility] Telephone encounter Note* Telephone Encounter - Jenifer Wang RN - 03/25/2024 3:09 PM EDT Please see pt message Jenifer Wang RN March 25, 2024 3:09 PM [facility] Telephone encounter Note* Telephone Encounter - Masood Matamoros OCCA - 03/24/2024 9:25 AM EDT See pt message CASSANDRA Simental March 24, 2024 9:26 AM [facility]07-08-[facility] History of Present illness Narrative* Yanci Kinney - 03/14/2024 2:28 PM EDT UNIVERSAL PROTOCOL / SAFETY CHECKLIST Procedure to be Performed: ANS with TILT Sign In: A Moment of CARE was completed. Personnel directly involved with the procedure wore the appropriate PPE (Personal Protective Equipment). Patient/Surrogate Stated/Verified: PATIENT VERIFIED(optional for EMERGENT procedures): Patient name, Date of , Relevant allergies, and The intended procedure Time Out Communication: Intended patient and procedure match the source documents. Consent documented and matches the intended procedure. No medications required for procedure. Sign Out: SIGN OUT (optional for EMERGENT procedures): Post-procedure follow-up management communicated and Plan of Care Visit completed when applicable. Yanci Kinney documented in this encounterGreen Cross Hospital07-08-2024 History of Present illness Narrative* Yanci Kinney - 03/14/2024 2:12 PM EDT UNIVERSAL PROTOCOL / SAFETY CHECKLIST Procedure to be Performed: QSART Sign In: A Moment of CARE was completed. Personnel directly involved with the procedure wore the appropriate PPE (Personal Protective Equipment). Patient/Surrogate Stated/Verified: PATIENT VERIFIED(optional for EMERGENT procedures): Patient name, Date of , Relevant allergies, and The intended procedure Time Out Communication: Intended patient and procedure match the source documents. Consent documented and matches the intended procedure. Medications required for procedure verified. Sign Out: SIGN OUT (optional for EMERGENT procedures): Post-procedure follow-up management communicated and Plan of Care Visit completed when applicable. Yanci Kinney documented in this encounterGreen Cross Hospital06-18-2024 Telephone encounter Note * Telephone Encounter - Emily Little MA - 02/23/2024 9:28 AM EDT Initiated PA via CoverMyMeds for Xifaxan, 550mg, Villalobos#[id number], pending determination. Dominic John MA February 23, 2024 9:30 AM [facility]-18-[facility] Miscellaneous Notes* Telephone Encounter - Emily Little MA - 02/23/2024 9:28 AM EDT Initiated PA via CoverMyMeds for Xifaxan, 550mg, Villalobos#[id number], pending determination. Dominic John MA February 23, 2024 9:30 AM documented in this encounterGreen Cross Hospital06-12-2024 History of Present illness Narrative* Doc Escalera MD - 02/17/2024 3:45 PM EDT Rev'd documented in this encounterGreen Cross Hospital06-12-2024 History of Present illness Narrative* Jeffrey Greene CT - 02/17/2024 8:44 AM EDT Glucose - SIBO Hydrogen Breath Test February 17, 2024 Referring Physician: Claus Taylor APRN.BOOKING SUPERVISOR Indication Bloating, Abdominal pain, Diarrhea, Milk intolerance Prep: 4 weeks followin hour before: No Smoking Day of test - No gum chewing Pain Level: none Baseline Hydrogen: 7 Methane: 2 Jeffrey Greene, CT Time given: 925am 50 grams / 50 grams Clock time start: 930am 15 minutes Hydrogen: 20 Methane: 3 Nikkiya Ramona, CT 30 minutes Hydrogen: 23 Methane: 2 Nikkiya Ramona, CT 45 minutes Hydrogen: 13 Methane: 2 Nikkiya Ramona, CT 1 hour Hydrogen: 4 Methane: [address] 1 hour, 15 minutes Hydrogen: 9 Methane: 0 Jeffrey Greene, CT 1 hour, 30 minutes Hydrogen: 5 Methane: 0 Nikkiya Ramona, CT Symptoms developed during the study: n/a Patient Results Preliminary Test Results (not given to patient): pending Jeffrey Greene CT Patient must be = Hydrogen >20 or Methane >10 in order to be positive for Bacterial Overgrowth documented in this encounterGreen Cross Hospital05-22-2024 NoteHNO ID: [id number] Author: LYNNE HERNANDEZ RT(Terry) Service: Radiology Author Type: Technologist Type: Progress Notes Filed: 01/27/2024 15:08 Note Text: Radiology Service Progress Note PATIENT NAME: Rhonda Cohen DATE OF SERVICE: January 27, 2024 TIME: 3:07 PM PATIENT IDENTITY VERIFICATION COMPLETED USING TWO (2) IDENTIFIERS: Name and Date of confirmed by patient verbally and Name and Date of confirmed by identification band. FALL SCREENING: Has the patient had 2 falls in the last year or 1 fall with injury or currently using an Ambulatory Assistive Device (Walker, Cane, Wheelchair, Crutches, etc.)? No PATIENT GENDER DATA: Female. status: : No status: NO. PATIENT RELEVANT IMPLANT DATA REVIEWED: Yes PATIENT PRESENTS WITH AN IMPLANTABLE OR ATTACHED CERAMICS TEST ENGINEER: No RADIOLOGY DEPARTMENT: MR; Exam(s) Completed: Body: enterography PERIPHERAL IV DATA: Site assessment: Clean,Dry and Intact, Site disposition Discontinued SIGNED BY: RT Min(R) January 27, 2024 3:07 [facility]05-22-2024 NoteHNO ID: [id number] Author: LYNNE HERNANDEZ RT(R) Service: Radiology Author Type: Technologist Type: Progress Notes Filed: 01/27/2024 14:47 Note Text: Radiology Service Progress Note PATIENT NAME: Rhonda Cohen DATE OF SERVICE: January 27, 2024 TIME: 2:46 PM PATIENT IDENTITY VERIFICATION COMPLETED USING TWO (2) IDENTIFIERS: Name and Date of confirmed by patient verbally and Name and Date of confirmed by identification band. FALL SCREENING: Has the patient had 2 falls in the last year or 1 fall with injury or currently using an Ambulatory Assistive Device (Walker, Cane, Wheelchair, Crutches, etc.)? No PATIENT GENDER DATA: Female. status: : No status: NO. PATIENT RELEVANT IMPLANT DATA REVIEWED: Yes PATIENT PRESENTS WITH AN IMPLANTABLE OR ATTACHED CERAMICS TEST ENGINEER: No RADIOLOGY DEPARTMENT: MR; Exam(s) Completed: Chest: Breast PERIPHERAL IV DATA: Not applicable SIGNED BY: RT Min(R) January 27, 2024 2:46 [facility]05-22-[facility]24 NoteHNO ID: [id number] Author: CAYLA TOBIN RN Service: Radiology Author Type: Registered Nurse Type: Progress Notes Filed: 01/27/2024 13:25 Note Text: Radiology Service Progress Note DATE OF SERVICE: January 27, 2024 TIME: 1:09 PM PATIENT WEIGHT: 120 LBS PATIENT IDENTITY VERIFICATION COMPLETED USING TWO (2) STANDARD IDENTIFIERS: Name and Date of confirmed by patient verbally. FALL SCREENING: Has the patient had 2 falls in the last year or 1 fall with injury or currently using an Ambulatory Assistive Device (Walker, Cane, Wheelchair, Crutches, etc.)? No PATIENT GENDER DATA: Female. status: : No status: NO. ALLERGIES: Reviewed and unchanged CONTRAST ALLERGY: No Glucagon 1mg given by beverly at 125pm EXAM: MRI - CONTRAST TYPE: GROUP II IV SITE: Ambulatory: A peripheral IV was started in the Left antecubital site with a Angio cath: 20 gauge. IV SITE APPEARANCE: Clean,Dry and Intact SIGNATURE: Cayla Tobin RN PATIENT NAME: Rhonda Cohen DATE: January 27, 2024 TIME: 1:09 [place]Jac[place] [id number] History of Present illness Narrative* Cayla Tobin RN - 01/27/2024 1:00 PM EDT Radiology Service Progress Note DATE OF SERVICE: January 27, 2024 TIME: 1:09 PM PATIENT WEIGHT: 120 LBS PATIENT IDENTITY VERIFICATION COMPLETED USING TWO (2) STANDARD IDENTIFIERS: Name and Date of confirmed by patient verbally. FALL SCREENING: Has the patient had 2 falls in the last year or 1 fall with injury or currently using an Ambulatory Assistive Device (Walker, Cane, Wheelchair, Crutches, etc.)? No PATIENT GENDER DATA: Female. status: : No status: NO. ALLERGIES: Reviewed and unchanged CONTRAST ALLERGY: No Glucagon 1mg given by beverly at 125pm EXAM: MRI - CONTRAST TYPE: GROUP II IV SITE: Ambulatory: A peripheral IV was started in the Left antecubital site with a Angio cath: 20gauge. IV SITE APPEARANCE: Clean,Dry and Intact SIGNATURE: Cayla Tobin RN PATIENT NAME: Rhonda Cohen DATE: January 27, 2024 TIME: 1:09 PM * Lynne Hernandez RT(R) - 01/27/2024 1:00 PM EDT Radiology Service Progress Note PATIENT NAME: Rhonda Cohen DATE OF SERVICE: January 27, 2024 TIME: 3:07 PM PATIENT IDENTITY VERIFICATION COMPLETED USING TWO (2) IDENTIFIERS: Name and Date of confirmedby patient verbally and Name and Date of confirmed by identification band. FALL SCREENING: Has the patient had 2 falls in the last year or 1 fall with injury or currently using an Ambulatory Assistive Device (Walker, Cane, Wheelchair, Crutches, etc.)? No PATIENT GENDER DATA: Female. status: : No status: NO. PATIENT RELEVANT IMPLANT DATA REVIEWED: Yes PATIENT PRESENTS WITH AN IMPLANTABLE OR ATTACHED CERAMICS TEST ENGINEER: No RADIOLOGY DEPARTMENT: MR; Exam(s) Completed: Body: enterography PERIPHERAL IV DATA: Site assessment: Clean,Dry and Intact, Site disposition Discontinued SIGNED BY: RT Min(Terry) January 27, 2024 3:07 PM documented in this encounterGreen Cross Hospital05-20-2024 History of Present illness Narrative* Celia Boogie PA-C - 01/25/2024 12:58 PM EDT Skin Biopsy Procedure Note Skin Biopsy Accession Number: [id number] Biopsy Date: 01/25/2024 Referring physician: Celia Boogie PA-C UNIVERSAL PROTOCOL / SAFETY CHECKLIST Procedure to be Performed: skin biopsy Sign In: A Moment of CARE was completed. Personnel directly involved with the procedure wore the appropriate PPE (Personal Protective Equipment). Patient/Surrogate Stated/Verified: PATIENT VERIFIED(optional for EMERGENT procedures): Patient name, Date of , Relevant allergies, and The intended procedure Time Out Communication: Intended patient and procedure match the source documents. Consent documented and matches the intended procedure. Sign Out: SIGN OUT (optional for EMERGENT procedures): All specimen containers correctly labeled. ENGAR Cartagena PA-C Sign in Pt ID verified with patient. Yes, by name and date. Is patient allergic to lidocaine, epinephrine, or bandage adhesive: allergy to chloro prep Is patient on anticoagulant medicine or blood thinners: No Does patient have a history of surgery on legs or feet: No Procedure verified with the patient: Yes, left leg biopsies, 2 sites. History 18 year old female with symptoms of brain fog, heat intolerance, dizziness upon standing, POTS symptoms for 2 years is referred for skin biopsy to evaluate for possible small fiber neuropathy. Written aftercare was given and explained: Yes Patient verbally agrees to proceed with the procedure. Sign in completed: Yes Procedure Note Procedure confirmed with provider and application support manager. Yes, left leg 2 skin biopsies. The procedure was discussed with the patient, including the risks, benefits, instruments and personnel involved in this procedure. All of the patient s questions were answered. Informed consent discussed and signed: Yes Audible time-out documented: Yes Procedure Start Time: 13:14 Procedure: After the patient was placed in a lateral position the following biopsy sites were identified: left distal leg and left distal thigh. These sites were cleansed with alcohol (allergy to chlorhexidine) and injected with 0.5cc 1% Lidocaine. Two skin biopsies were obtained using a 3mm biopsy punch and removed with the forceps and surgical blade technique. Bleeding was minimal and hemostasis was obtained by pressure. Sterile dressing was applied to each biopsy site. Audible sign out completed: All specimens labeled, no equipment issues. Procedure End Time: 13:22 Patient tolerated procedure well, without complications. Patient was discharged home. Specimens were labeled and sent to [facility]. Procedure was performed by: Celia Boogie PA-C Assistance in supply/equipment preparation performed by: CASSANDRA Hurtado Sign out is complete. [facility] History of Present illness Narrative* Mckayla Patel, OD - 01/22/2024 9:05 AM EDT Assessment/Plan: 1. Blurring of vision Educated patient on findings. Educated patient on normal intraocular health OU today. Discussed that I suspect the symptoms she has are neurological based on description and bilateral nature. Reviewed last neurology note with Celia Boogie 01/15/2024. Pt to have MRI brain scheduled. Continue working with neurology. RTC with unilateral vision changes or new/worsening flashes/floaters/curtains/veils -as these are more likely ocular symptoms/causes. Monitor yearly. - CONSULT TO OPHTHALMOLOGY 2. Chronic migraine w/o aura w/o status migrainosus, not intractable See plan 1. Significant change in spec rx. Recommend pt get new glasses to alleviate any eye fatigue/strain that may be contributing to headaches. - CONSULT TO OPHTHALMOLOGY 3. Regular astigmatism of both eyes Educated patient on exam findings; new glasses prescription released to patient. Discussed adaptation time to new rx. Monitor complete exam. Mckayla Patel, OD RTC 01/2025 complete exam [facility] Telephone encounter Note * Telephone Encounter - Celia Boogie PA-C - 01/18/2024 1:37 PM EDT Thanks - no issue after you called right? [facility] Miscellaneous Notes* Telephone Encounter - Celai Boogie PA-C - 01/18/2024 1:37 PM EDT Thanks - no issue after you called right? documented in [facility] History of Present illness Narrative* Vera Walker APRN.BOOKING SUPERVISOR - 01/16/2024 11:57 AM EDT This note was created using Begunriter. Subjective Rhonda Cohen is a 18 year old female. 18 year old female with PMH anxiety and adjustment disorder presents for illness Acute onset of symptoms 2 weeks ago Left ear pain Which resolved after about a week, But then symptoms worsened over past few days +sore throat +enlarged lymph nodes Denies inability to handle secretions. Denies muffled voice Denies CP Denies SOB The history is provided by the patient. No languages and literature instructor was used. URI There is no chest tightness, cough, difficulty breathing, frequent throat clearing, hemoptysis, hoarse voice, shortness of breath, sputum production or wheezing. This is a new problem. The current episode started 1 to 4 weeks ago. The problem occurs constantly. The problem has been gradually worsening. Associated symptoms include ear congestion, ear pain and a sore throat. Pertinent negatives include no appetite change, chest pain, dyspnea on exertion, fever, headaches, heartburn, malaise/fatigue, myalgias, nasal congestion, orthopnea, PND, postnasal drip, rhinorrhea, sneezing, sweats, trouble swallowing or weight loss. Her symptoms are aggravated by nothing. Her symptoms are alleviated by nothing. She reports no improvement on treatment. There are no known risk factors for lung disease. There is no history of asthma, bronchiectasis, bronchitis, COPD, emphysema or pneumonia. PAST MEDICAL HISTORY Diagnosis Date Anxiety and depression History of IBS PAST SURGICAL HISTORY Procedure Laterality Date EGD W/O BRSH SPEC VARICIES INJ 07/06/2023 ALLERGIES Atarax [Hydroxyzine], Acetaminophen, Chlorhexidine, Ciprofloxacin, Clindamycin, Ibuprofen, Lactose, Peanut Butter Flavor, Penicillins, Red Dye, and Tramadol MEDICATIONS azithromycin (ZITHROMAX) 250 mg tablet Take 2 tablets by mouth once daily for 1 day, THEN 1 tablet once daily for 4 days. fexofenadine (MELISA) 180 mg tablet Take 1 tablet by mouth four times daily. gabapentin (NEURONTIN) 300 mg capsule Take 1 capsule by mouth as directed for 60 days. iv contrast (will be provided with radiology test) MRI Brain Inject, intravenously, once for 1 dose.No IV access, insert saline lock prior to beginning of sedation, infusion, injection of imaging exam.Discontinue saline lock post exam. If Pt. has a central line or IVAD, may access for administration according to line specific nursing protocol.Once exam is complete flush line and de-access according to line specific nursing protocol in the MR contrast administration guidelines link iv contrast (will be provided with radiology test) MRV Brain Inject, intravenously, once for 1 dose. No IV access, insert saline lock prior to the beginning of sedation, infusion, injection of imaging exam. Discontinue saline lock post exam. If Pt. has a central line or IVAD, may access for administration according to line specific nursing protocol. Once exam is complete flush line and de-access according to line specific nursing protocol in the MR contrast administration guidelines link. fluticasone (FLONASE ALLERGY RELIEF) 50 mcg/actuation nasal spray Use 1 [place] in each nostril once daily. (Patient not taking: Reported on 01/15/2024) Twnujfuzcuzqjrg-Iwxkresgd-OU (BROMFED DM) 2-30-10 mg/5 mL syrup Take 5 mL by mouth four times a dayas needed. (Patient not taking: Reported on 01/15/2024) glucagon (GLUCAGEN) 1 mg/mL injection Inject 1 mg intravenously one time only for 1 dose. For MRI Enterography, Inject 1 mg intravenously, as directed. Slow push at the appropriate time during MRI Scan (Patient not taking: Reported on 01/15/2024) diphenhydrAMINE (BENADRYL) 25 mg capsule hyoscyamine sublingual (LEVSIN/SL) 0.125 mg Dissolve 1 tablet under the tongue every 4 hours as needed (abdominlal pain). fexofenadine (MELISA ALLERGY) 180 mg tablet Take 1 tablet by mouth once daily. (Patient not taking: Reported on 01/15/2024) cholecalciferol, Vitamin D3, (VITAMIN D3) 1,250 mcg (50,000 unit) cap capsule Take 1 capsule by mouth one time a week. DULoxetine (CYMBALTA) 20 mg capsule Take 1 capsule by mouth once daily. peppermint oil (IBGARD) 90 mg CECX Take 1 capsule by mouth once daily as needed (INTESTINAL UPSET). FAMILY HISTORY Problem Relation Age of Onset Fibromyalgia Mother Cervical Cancer Mother other (diverticulitis) Mother Kidney Disease Father No Known Problems Sister Kidney stones Brother No Known Problems Brother No Known Problems Brother Bipolar disorder Maternal Grandmother other (endometriosis) Maternal Grandmother Heart Maternal Grandfather No Known Problems Paternal Grandmother Heart Attack Paternal Grandfather other (endometriosis) Other Social History Tobacco Use Smoking status: Never Passive exposure: Never Smokeless tobacco: Never Vaping Use Vaping Use: Never used Substance Use Topics Alcohol use: Never Drug use: Never Review of Systems Constitutional: Negative for appetite change, fever, malaise/fatigue and weight loss. HENT: Positive for ear pain and sore throat. Negative for hoarse voice, postnasal drip, rhinorrhea,sneezing and trouble swallowing. Eyes: Negative for pain, discharge and itching. Respiratory: Negative for apnea, cough, hemoptysis, sputum production, chest tightness, shortness of breath and wheezing. Cardiovascular: Negative for chest pain, dyspnea on exertion and PND. Gastrointestinal: Negative for abdominal pain, diarrhea, heartburn, nausea and vomiting. Musculoskeletal: Negative for myalgias. Skin: Negative for color change, pallor and rash. Allergic/Immunologic: Negative for environmental allergies, food allergies and immunocompromised state. Neurological: Negative for dizziness, facial asymmetry and headaches. Hematological: Positive for adenopathy. Does not bruise/bleed easily. Psychiatric/Behavioral: Negative for agitation and behavioral problems. Objective LMP 12/03/2023 (Exact Date) BP 105/85 Pulse 76 Temp 36.4 C (97.5 F) Resp 16 LMP 12/03/2023 (Exact Date) SpO2 98% Physical Exam Vitals and nursing note reviewed. Constitutional: General: She is not in acute distress. Appearance: Normal appearance. She is normal weight. She is not ill-appearing, toxic-appearing or diaphoretic. HENT: Head: Normocephalic and atraumatic. Right Ear: Ear canal and external ear normal. Left Ear: Ear canal and external ear normal. Ears: Comments: Left TM erythematous and bulging Nose: Nose normal. No congestion or rhinorrhea. Mouth/Throat: Mouth: Mucous membranes are moist. Pharynx: Posterior oropharyngeal erythema (Uvula midline. Tongue midline. Handling secretions. Muffled voice) present. No oropharyngeal exudate. Eyes: General: Right eye: No discharge. Left eye: No discharge. Extraocular Movements: Extraocular movements intact. Conjunctiva/sclera: Conjunctivae normal. Pupils: Pupils are equal, round, and reactive to light. Cardiovascular: Rate and Rhythm: Normal rate and regular rhythm. Pulses: Normal pulses. Heart sounds: Normal heart sounds. No murmur heard. No friction rub. Pulmonary: Effort: Pulmonary effort is normal. No respiratory distress. Breath sounds: Normal breath sounds. No stridor. No wheezing, rhonchi or rales. Chest: Chest wall: No tenderness. Abdominal: General: Abdomen is flat. There is no distension. Palpations: Abdomen is soft. There is no mass. Tenderness: There is no abdominal tenderness. There is no right CVA tenderness, left CVA tenderness, guarding or rebound. Hernia: No hernia is present. Musculoskeletal: General: No swelling, tenderness, deformity or signs of injury. Normal range of motion. Cervical back: Normal range of motion and neck supple. No rigidity. Right lower leg: No edema. Left lower leg: No edema. Lymphadenopathy: Cervical: Cervical adenopathy present. Skin: General: Skin is warm and dry. Coloration: Skin is not jaundiced or pale. Findings: No bruising, erythema, lesion or rash. Neurological: General: No focal deficit present. Mental Status: She is alert and oriented to person, place, and time. Cranial Nerves: No cranial nerve deficit. Sensory: No sensory deficit. Motor: No weakness. Coordination: Coordination normal. Gait: Gait normal. Psychiatric: Mood and Affect: Mood normal. Behavior: Behavior normal. Thought Content: Thought content normal. Judgment: Judgment normal. Assessment and Plan ASSESSMENT/PLAN: 1. Acute otitis media, left - ICD9: 382.9, ICD10: H66.92 (primary diagnosis) - Will begin treatment with as per antibiotic as written, see orders She has allergy of PCN, states zithromax is what she can take - The patient should also be given OTC cough and cold meds as needed, warm salt water gargles, throat lozenges and/or OTC throat spray as needed, and nasal saline gtts and suction prn for the first 5-7 days of treatment. - Supportive care with plenty of fluids, rest, and analgesia prn. - Follow up in 3-5 days if symptoms persist or worsen. 2. Pharyngitis, unspecified etiology - ICD9: 462, ICD10: J02.9 - Group A strep molecular testing negative - Discussed supportive care treatment with fluids, rest and analgesia. - The patient may also use OTC cough and cold meds as needed, warm salt water gargles, throat lozenges and/or OTC throat spray as needed, and nasal saline gtts and suction prn. - Contagious dz precautions discussed- including considered contagious until on antibiotics for 24 hours - The patient should follow up in 3-5 days if symptoms persist or worsen - Call back if drooling, increased temperature, symptoms of dehydration and/or still sick in one week Vera Walker APRN.BOOKING SUPERVISOR documented in this encounter[facility] History of Present illness Narrative* Celia Boogie PA-C - 01/15/2024 12:15 PM EDT Images from the original note were not included. [facility] New Patient Evaluation Rhonda Cohen is a 18 year old right handed female. Patient presents with: New Patient Rhonda Cohen is referred in consultation by Claus Taylor for POTS. Final recommendations will be communicated to the requesting physician by way of a letter. PMH: - anxiety/depression - allergies Today: Patient presents today for concern for POTS. Patient notes that symptoms began 3-5 years ago. Symptoms occurring daily. Lightheadedness with standing no LOC Heat intolerance Abdominal pain Brain fog Headaches: a few times per week, began a few years ago, getting worse Typically lasting one hour to the whole day Located temporal, retroortbital or frontal Pressure or throbbing Associated symptoms including light/sound sensitivity, nausea, Does believe headaches can be worse laying down Occasional light in vision, small [place] Not taking anything for head pain. No hx of kidney stones No fh of brain aneurysm/tumor Autonomic Screening Do you become dizzy or lightheaded with standing? + Do you notice your heart racing (tachycardia) with postural change? + Do you have syncope? - In the past month, did you have any falls? - How long can you stand (in minutes) before becoming symptomatic? anytime Are symptoms worse after consuming a meal? + occasionally Are symptoms alleviated by sitting/laying down? + Autonomic check list: YES (Y) or NO (N) Dry mouth: + Dry eyes: - Change in sweat: + more Constipation: + Abdominal Bloating with shortly after eating: + Fluctuation of diarrhea and constipation: + Urination: + more Change in taste: decreased Challenge swallowing foods: - Skin changes of blue or redness to distal limbs: + Fainting /near syncope/syncope: + near Dizziness: + Light headiness: + Chest pain: + Challenge in breathing: + Tachycardia: + Temperature Regulation: + Hx of head/neck trauma? Concussions Hx of severe viral illness? No Hx of autoimmune disease? None, currently evaluating patient for this History of emotional or physical abuse? No Previous medicine magnesium B2 Topamax Duloxetine Current management of orthostatic condition Diet: meals every 2-3 hours Exercise: limited due to symptoms Water: 60 oz Salt: no Stockings: no Medications Reviewed fexofenadine (MELISA) 180 mg tablet Take 1 tablet by mouth four times daily. diphenhydrAMINE (BENADRYL) 25 mg capsule hyoscyamine sublingual (LEVSIN/SL) 0.125 mg Dissolve 1 tablet under the tongue every 4 hours as needed (abdominlal pain). cholecalciferol, Vitamin D3, (VITAMIN D3) 1,250 mcg (50,000 unit) cap capsule Take 1 capsule by mouth one time a week. peppermint oil (IBGARD) 90 mg CECX Take 1 capsule by mouth once daily as needed (INTESTINAL UPSET). gabapentin (NEURONTIN) 300 mg capsule Take 1 capsule by mouth as directed for 60 days. iv contrast (will be provided with radiology test) MRI Brain Inject, intravenously, once for 1 dose.No IV access, insert saline lock prior to beginning of sedation, infusion, injection of imaging exam.Discontinue saline lock post exam. If Pt. has a central line or IVAD, may access for administration according to line specific nursing protocol.Once exam is complete flush line and de-access according to line specific nursing protocol in the MR contrast administration guidelines link iv contrast (will be provided with radiology test) MRV Brain Inject, intravenously, once for 1 dose. No IV access, insert saline lock prior to the beginning of sedation, infusion, injection of imaging exam. Discontinue saline lock post exam. If Pt. has a central line or IVAD, may access for administration according to line specific nursing protocol. Once exam is complete flush line and de-access according to line specific nursing protocol in the MR contrast administration guidelines link. fluticasone (FLONASE ALLERGY RELIEF) 50 mcg/actuation nasal spray Use 1 [place] in each nostril once daily. (Patient not taking: Reported on 01/15/2024) Zzlmyqmuunuqhjo-Amoysdqhs-CP (BROMFED DM) 2-30-10 mg/5 mL syrup Take 5 mL by mouth four times a dayas needed. (Patient not taking: Reported on 01/15/2024) glucagon (GLUCAGEN) 1 mg/mL injection Inject 1 mg intravenously one time only for 1 dose. For MRI Enterography, Inject 1 mg intravenously, as directed. Slow push at the appropriate time during MRI Scan (Patient not taking: Reported on 01/15/2024) fexofenadine (MELISA ALLERGY) 180 mg tablet Take 1 tablet by mouth once daily. (Patient not taking: Reported on 01/15/2024) DULoxetine (CYMBALTA) 20 mg capsule Take 1 capsule by mouth once daily. ALLERGIES Allergen Reactions Atarax [Hydroxyzine] Other: See Comments Patient has paradoxical effect, she is hyperalert and is up all night. Acetaminophen Diarrhea Chlorhexidine Rash Rash/burning Ciprofloxacin Other: See Comments Family history of the allergy Clindamycin Anaphylaxis Ibuprofen Diarrhea Lactose Diarrhea Peanut Butter Flavor Diarrhea, GI Upset Penicillins Other: See Comments 06/29/23: Extensive family history of multiple antibiotic allergies including penicillins. Report multiple family members having anaphylaxis reactions. Red Dye Intolerance Tramadol Other: See Comments Blurred vision PAST MEDICAL HISTORY: PAST MEDICAL HISTORY Diagnosis Date Anxiety and depression History of IBS PAST SURGICAL HISTORY Procedure Laterality Date EGD W/O BRSH SPEC VARICIES INJ 07/06/2023 Social History Tobacco Use Smoking status: Never Passive exposure: Never Smokeless tobacco: Never Vaping Use Vaping Use: Never used Substance Use Topics Alcohol use: Never Drug use: Never family history includes Bipolar disorder in her maternal grandmother; Cervical Cancer in her mother; Fibromyalgia in her mother; Heart in her maternal grandfather; Heart Attack in her paternal grandfather; Kidney Disease in her father; Kidney stones in her brother; No Known Problems in her brother,brother, paternal grandmother, and sister; diverticulitis in her mother; endometriosis in her maternal grandmother and another family member. General Examination: BP 105/71 Pulse 73 Ht 162.6 cm (5' 4) Wt 55.8 kg (123 lb) LMP 12/03/2023 (Exact Date) SpO2 99% BMI 21.11 kg/m 01/15/24 1154 01/15/24 1213 01/15/24 1214 01/15/24 1215 BP: 105/71 Orthostatic BP: 107/66 113/68 99/58 BP Position: Supine Standing Standing Pulse: 73 Orthostatic Pulse: 64 90 80 SpO2: 99% Weight: 55.8 kg (123 lb) Height: 162.6 cm (5' 4) Neurological Examination: Cognition The patient is alert and oriented times four Lucid and organized in conversation Able to provide detailed medical hx Speech Speech is Normal in fluency, volume, and clarity; no dysarthria Content and syntax are coherent Comprehension: Able to follow several step commands Cranial Nerves PERRLA No ptosis Visual peña are full to confrontation Extraocular movements are intact; No nystagmus Facial motor exam is strong and symmetric Equal sensation of trigeminal nerve - V1,V2, and V3 Soft palate elevation is symmetric, tongue is in midline, no tongue fasciculation. Neck range of motion is full Trapezius Strength is symmetric, graded 5/5 Tone and Bulk Tone and bulk is normal and preserved bilaterally of arms Tone and bulk is normal and preserved bilaterally of legs No apparent muscle atrophy No pes cavus or hammer toes Strength Shoulder Abduction 5/5 5/5 Elbow Flexion 5/5 5/5 Elbow Extension 5/5 5/5 Wrist Flexion 5/5 5/5 Wrist Extension 5/5 5/5 Finger Extension 5/5 5/5 Finger Flexion 5/5 5/5 Finger Abduction 5/5 5/5 Hip Flexion 5/5 5/5 Hip Adduction 5/5 5/5 Hip Abduction 5/5 5/5 Knee Flexion 5/5 5/5 Knee Extension 5/5 5/5 Ankle Dorsiflexion 5/5 5/5 Ankle Plantarflexion 5/5 5/5 Movement/Coordination Finger-to- nose-finger and ghtd-bi-nqhg intact bilaterally. No evidence of ataxia arms. No limb dysmetria of arms and legs. Rapid alternating movements of pronation and supination, finger and hand tapping intact. No rigidity, cog wheeling, or bradykinesia. No tremors No extrapyramidal findings or dystonia Sensation Decreased sensation to pinprick in patchy and changing distribution throughout upper and lower extremities. Normal proprioception (toe position and thumb). Normal finger vibration and toe vibration. Reflexes Right Left Bicep 2/4 2/4 Tricep 2/4 2/4 Brachioradialis 2/4 2/4 Patella 2/4 2/4 Ankle 2/4 2/4 No Clonus Negative Babinski (toes curl down) Galeano sign not present Gait Able to stand without upper body assistance. Normal station and stride. No festination or retropulsion. Good arm swing and body turn. Normal toe, heel, and tandem walk. Romberg's sign is negative. Assessment & Plan Rhonda Cohen is a 18 year old here today for initial evaluation. Rhonda Cohen has a past medical history of anxiety/depression, and allergies. Patient presents today for concern POTS. Notes symptoms that began around 3-5 years ago. Symptoms including heat intolerance, abdominal pain, brain fog,and orthostatic lightheadedness. Also concerned for headaches which has been going on for the last few years. Headaches occurring 3-5 times per week, lasting 1-12 hours. Headaches described as temporal, retro orbital, or frontal. Described as pressure like or throbbing. Headaches with associated light/sound sensitivity and nausea. Patient does admit to headaches worsening with laying down and occa sional bright spots in vision. Patient denies exertional trigger. Neurological examination obtained in office unremarkable. Orthostatic vital signs obtained in office unremarkable. Plan to evaluate for dysautonomia with neuro tilt, qsart, and skin biopsy. Will also add a few labsto rule out mimics. Will send for MRI brain and MRV due to worsening/positional headache. Will initiate gabapentin for headache preventative therapy. Will also send to ophthalmology for evaluation ofeyes due to abnormal aura. Discussed all medication indication, instructions, and SE. Continue withconservative measures in the meantime. Patient is aware and agrees to plan. Patient agrees to notify for any new or worsening symptoms. Discussed red flags/signs/symptoms and when to proceed to the ER. Encounter Diagnosis ICD-10-CM 1. Orthostatic lightheadedness R42 VITAMIN B12 THYROID STIMULATING HORMONE NEURO CARDIO AUTONOMIC REFLEX W/WO TILT acetylcholine 10% solution - [facility] compound[facility] NEURO QSART SKIN BIOPSY FOR NEUROPATHY/CNL CONSULT TO OPHTHALMOLOGY 2. Blurring of vision H53.8 CONSULT TO OPHTHALMOLOGY 3. Disturbance of skin sensation R20.9 VITAMIN B12 THYROID STIMULATING HORMONE NEURO CARDIO AUTONOMIC REFLEX W/WO TILT acetylcholine 10% solution - [facility] compounding NEURO QSART SKIN BIOPSY FOR NEUROPATHY/CNL CONSULT TO OPHTHALMOLOGY 4. Chronic migraine w/o aura w/o status migrainosus, not intractable G43.709 SKIN BIOPSY FOR NEUROPATHY/CNL CONSULT TO OPHTHALMOLOGY gabapentin (NEURONTIN) 300 mg capsule MRI BRAIN WO/W IVCON iv contrast (will be provided with radiology test) MRV BRAIN WO/W IVCON iv contrast (will be provided with radiology test) 5. Positional headache R51.0 MRI BRAIN WO/W IVCON iv contrast (will be provided with radiology test) MRV BRAIN WO/W IVCON iv contrast (will be provided with radiology test) No follow-ups on file. I spent a total of 60 minutes on the date of the service which included preparing to see the patient, [id number] patient care, completing clinical documentation, obtaining and/or reviewing separately obtained history, performing a medically appropriate examination, counseling and educating the pat ient/family/caregiver, and ordering medications, tests, or procedures. During our face to face clinical encounter we discussed my concerns neurologically in terms of diagnosis, impact on health and activities of living, and addressed questions. I tried to reassure the patient and also address questions. I explained to the patient to call if any questions, to review res ults, and I want to see them return for neurological follow up as mychart as next steps of communication is agreed upon Patient verbalizes understanding and I have addressed concerns and questions at this visit Patient has my contacts, educational material provided, and my chart sign up. After visit summary discussed. ACTIVE PROBLEM LIST Nausea & Vomiting Diarrhea Abdominal Pain Adjustment Disorder Irregular Menstrual Cycle Colitis Depression Anxiety High Anion Gap Metabolic Acidosis Ketosis (Hcc) Office Visit on 01/15/24 NEURO CARDIO AUTONOMIC REFLEX W/WO TILT NEURO QSART SKIN BIOPSY FOR NEUROPATHY/CNL MRI BRAIN WO/W IVCON MRV BRAIN WO/W IVCON VITAMIN B12 THYROID STIMULATING HORMONE CONSULT TO NEUROLOGY CONSULT TO OPHTHALMOLOGY Celia Boogie PA-C Neuromuscular Medicine [address] [place] [address]. [id number] Appointment: [phone] 1. This office note has been dictated and may contain minor typographic errors that escaped review 2. The nursing staff and medical assistants are a major part of YOUR TREATMENT TEAM and will be handling your phone calls and inquiries, if any. Unless explicitly told otherwise at the time of your office visit, your study results and ensuing treatment plans will be discussed during your follow-up appointment. If you do not have a follow-up appointment and wish to discuss any issues directly withme, please feel free to obtain one. 3. It is my practice to not fill disability or any other insurance-related forms/documention. All of the office notes, study results, and other pertinent documentation generated as part of your evaluation will be available to you and to your Primary Care Physician (PCP). Use of this material to complete such forms will be at the discretion of your PCP/referring physician Answers submitted by the patient for this visit: Compass 31 (Submitted on 01/13/2024) In the past year, have you ever felt faint, dizzy, goofy, or had difficulty thinking soon after standing up from a sitting or lying position?: Yes In the past year, have you ever noticed color changes in your skin, such as red, white, or purple?:Yes In the past 5 years, what changes, if any, have occurred in your general body sweating?: I sweat much more than I used to Do your eyes feel excessively dry? : No Does your mouth feel excessively dry? : Yes For the symptom of dry eyes or dry mouth that you have had for the longest period of time, is this symptom:: Getting somewhat worse In the past year, have you noticed any changes in how quickly you get full when eating a meal?: I get full less quickly now than I used to In the past year, have you felt excessively full or persistently full (bloated feeling) after a meal?: A lot of the time In the past year, have you vomited after a meal? : Never In the past year, have you had a cramping or colicky abdominal pain?: A lot of the time In the past year, have you had any bouts of diarrhea?: Yes In the past year, have you been constipated? : Yes In the past year, have you ever lost control of your bladder function?: Occasionally In the past year, have you had difficulty passing urine?: Occasionally In the past year, have you had trouble completely emptying your bladder?: Occasionally In the past year, without sunglasses or tinted glasses, has bright light bothered your eyes?: Constantly In the past year, have you had trouble focusing your eyes?: Occasionally Is this most troublesome symptom with your eyes (i.e. sensitivity to bright light or trouble focusing) getting:: Getting somewhat worse (Submitted on 01/13/2024) When standing up, how frequently do you get these feelings or symptoms?: Almost Always How would you rate the severity of these feelings or symptoms?: Moderate In the past year, have these feelings or symptoms that you have experienced:: Gotten much worse (Submitted on 01/13/2024) What parts of your body are affected by these color changes? : Hands Are these changes in your skin color:: Staying about the same (Submitted on 01/13/2024) How frequently does this occur?: Frequently How severe are these bouts of diarrhea?: Severe Are your bouts with diarrhea getting:: Staying the same (Submitted on 01/13/2024) How frequently are you constipated? : Frequently How severe are these episodes of constipation? : Moderate Is your constipation getting:: Somewhat worse (Submitted on 01/13/2024) How severe is this sensitivity to bright light?: Severe (Submitted on 01/13/2024) How severe is this focusing problem? : Moderate documented [facility] Instructions* Patient Instructions* Nnamdi Orosco MD - 01/15/2024 10:09 AM EDT Start melisa 2 tablets twice daily. Get tryptase lab drawn today and during an attack of symptoms within 2 hours. Will check blood allergy testing and SHABANA to assess for lupus. Will reach out with results. documented in this encounterGreen [facility]05-09-[facility] History of Present illness Narrative* Flako Ward MD - 01/14/2024 10:55 AM EDT Images from the original note were not included. Allergy and Immunology All aspects of this note have been reviewed and updated. Consultation requested by Claus Taylor for an opinion regarding possible MCAS. My final recommendations will be communicated back to the requesting physician by way of shared Medical record or letter to requesting physician via US mail. Rhonda Cohen is a 18 year old female who presents today for evaluation of MCAS. Symptoms: Symptoms started at age 14 Has multiple random allergies, will be eating or taking a medication for a long time, and then willstart having allergic reactions - wonders if she has a mast cell activation syndrome During these allergy issues: Develops a rash on back Gets significant abdominal pain Diarrhea (4-5 times) Will get SOB and have trouble breathing Hot flashes Back in June was having issues daily Now is more intermittent, 1-2 severe attacks since hospitalization Abdominal pain, mostly lower abdominal pain, worse on the left side Describes as aching or sharp at times, feels like someone is taking a sword and poking If she is having the pain, cannot eat anything RUQ pain, feels like a needle type pain Typical bowel pattern is daily, normal texture, bristol stool 3-4 Acid reflux, feels this has been getting worse Increased burping, burning sensation No trouble swallowing +nausea, uses scopolamine patches No vomiting Weight stable for the last few months, had lost a little bit prior to that +bloating +brain fog Cannot bend over without worse abdominal pain Dizzy, feels faint when standing If taking warm shower, gets dizzy +heart palpitations, even without exertion Intermittent random chest pain Heart races with going from sitting to standing Feels SOB with exertion Have tried: Dietary changes Pantoprazole Scopolamine IBgard Zofran Hydroxyzine - made symptoms worse Benadryl - does not help Heating pad Bentyl - helped in the beginning but stopped helping Probiotics Feels benadryl has helped Has never tried second generation antihistamines [place] about MCAS after googling her symptoms Has had negative workup with GI thus far A little GERD No episodes of anaphylaxis Has multiple intolerances to foods, but no clear allergic reactions No reactions requiring epinephrine Endorses seasonal allergies as well Never tried nasal sprays Was prescribed melisa recently but hasn't tried Interested in allergy testing Asking about foods toward the end of visit. No reported hives, swelling, vomiting, or other concerning allergy symptoms related to foods. Nasal polyps: The patient has never had nasal polyps. Asthma: The patient has no history of asthma. Sinusitis: The patient does not suffer from frequent sinopulmonary infections. Latex Allergy: DENIES Contact Dermatitis/Eczema: DENIES Food Allergies/Reactions: DENIES Urticaria/Angioedema: DENIES Hymenoptera Reaction: denies Environmental history: Pets in the home: none Heather: [id number]-[id number] carpeting Air conditioning: Window air conditioning Dust mite controls: Dust mite controls are not in place. PAST MEDICAL HISTORY Diagnosis Date Anxiety and depression History of IBS PAST SURGICAL HISTORY Procedure Laterality Date EGD W/O BRSH SPEC VARICIES INJ 07/06/2023 FAMILY HISTORY Problem Relation Age of Onset Fibromyalgia Mother Cervical Cancer Mother other (diverticulitis) Mother Kidney Disease Father No Known Problems Sister Kidney stones Brother No Known Problems Brother No Known Problems Brother Bipolar disorder Maternal Grandmother other (endometriosis) Maternal Grandmother Heart Maternal Grandfather No Known Problems Paternal Grandmother Heart Attack Paternal Grandfather other (endometriosis) Other Current Outpatient Medications Medication Sig diphenhydrAMINE (BENADRYL) 25 mg capsule hyoscyamine sublingual (LEVSIN/SL) 0.125 mg Dissolve 1 tablet under the tongue every 4 hours as needed (abdominlal pain). cholecalciferol, Vitamin D3, (VITAMIN D3) 1,250 mcg (50,000 unit) cap capsule Take 1 capsule by mouth one time a week. peppermint oil (IBGARD) 90 mg CECX Take 1 capsule by mouth once daily as needed (INTESTINAL UPSET). fexofenadine (MELISA) 180 mg tablet Take 1 tablet by mouth four times daily. fluticasone (FLONASE ALLERGY RELIEF) 50 mcg/actuation nasal spray Use 1 [place] in each nostril once daily. (Patient not taking: Reported on 01/15/2024) Jcqfixiumnsnkud-Apzrdmbmx-BL (BROMFED DM) 2-30-10 mg/5 mL syrup Take 5 mL by mouth four times a dayas needed. (Patient not taking: Reported on 01/15/2024) glucagon (GLUCAGEN) 1 mg/mL injection Inject 1 mg intravenously one time only for 1 dose. For MRI Enterography, Inject 1 mg intravenously, as directed. Slow push at the appropriate time during MRI Scan (Patient not taking: Reported on 01/15/2024) fexofenadine (MELISA ALLERGY) 180 mg tablet Take 1 tablet by mouth once daily. (Patient not taking: Reported on 01/15/2024) DULoxetine (CYMBALTA) 20 mg capsule Take 1 capsule by mouth once daily. No current facility-administered medications for this visit. ALLERGIES Allergen Reactions Atarax [Hydroxyzine] Other: See Comments Patient has paradoxical effect, she is hyperalert and is up all night. Acetaminophen Diarrhea Chlorhexidine Rash Rash/burning Ciprofloxacin Other: See Comments Family history of the allergy Clindamycin Anaphylaxis Ibuprofen Diarrhea Lactose Diarrhea Peanut Butter Flavor Diarrhea, GI Upset Penicillins Other: See Comments 06/29/23: Extensive family history of multiple antibiotic allergies including penicillins. Report multiple family members having anaphylaxis reactions. Red Dye Intolerance Tramadol Other: See Comments Blurred vision Social History Tobacco Use Smoking status: Never Passive exposure: Never Smokeless tobacco: Never Review of Systems Constitutional: Positive for appetite change. HENT: Positive for ear pain, sore throat and trouble swallowing. Respiratory: Positive for cough. Cardiovascular: Positive for palpitations. Gastrointestinal: Positive for abdominal pain, constipation and nausea. Endocrine: Positive for heat intolerance and polydipsia. Musculoskeletal: Positive for myalgias. Skin: Positive for rash. Neurological: Positive for dizziness and headaches. Psychiatric/Behavioral: Positive for sleep disturbance. The patient is nervous/anxious. Blood pressure 109/54, pulse 87, temperature 36.2 C (97.2 F), temperature source Temporal, resp. rate 16, weight 54.7 kg (120 lb 9.6 oz), last menstrual period 12/03/2023, SpO2 98%. Body mass index is 21.36 kg/m . Physical Exam Constitutional: Appearance: Normal appearance. She is normal weight. HENT: Head: Normocephalic and atraumatic. Nose: Nose normal. Mouth/Throat: Mouth: Mucous membranes are dry. Pharynx: Oropharynx is clear. Eyes: Conjunctiva/sclera: Conjunctivae normal. Cardiovascular: Rate and Rhythm: Normal rate and regular rhythm. Pulses: Normal pulses. Heart sounds: Normal heart sounds. Pulmonary: Effort: Pulmonary effort is normal. Breath sounds: Normal breath sounds. Abdominal: Comments: Moderate tenderness to palpation without rebound or guarding. Reticulated rash on abdomenin area of heating pad. Musculoskeletal: Cervical back: Normal range of motion and neck supple. Skin: Comments: Reticulated erythematous rash on abdomen in area of heating pad. Heating pad on abdomen. Neurological: Mental Status: She is alert. Diagnostic Testing: Labs No tryptase on file. Latest Ref Rng 07/03/2023 07/06/2023 WBC 3.70 - 11.00 k/uL 9.20 RBC 3.90 - 5.20 m/uL 4.94 Hemoglobin 11.5 - 15.5 g/dL 14.1 Hematocrit 36.0 - 46.0 % 40.5 MCV 80.0 - 100.0 fL 82.0 MCH 26.0 - 34.0 pg 28.5 MCHC 30.5 - 36.0 g/dL 34.8 RDW-CV 11.5 - 15.0 % 12.4 Platelet Count 150 - 400 k/uL 372 MPV 9.0 - 12.7 fL 9.7 Neut% % 69.1 Abs Neut (ANC) 1.45 - 7.50 k/uL 6.36 Lymph% % 18.4 Abs Lymph 1.00 - 4.00 k/uL 1.69 [place]% % 11.0 Abs [place] <0.87 k/uL 1.01 (H) Eosin% % 1.0 Abs Eosin <0.46 k/uL 0.09 Baso% % 0.3 Abs Baso <0.11 k/uL 0.03 Immature Gran % % 0.2 IMMATURE GRANS (ABS) <0.10 k/uL <0.03 NRBC /100 WBC 0.0 Absolute nRBC <0.01 k/uL <0.01 DTYPE Auto Glucose 74 - 99 mg/dL 104 (H) BUN 7 - 21 mg/dL 9 Creatinine 0.58 - 0.96 mg/dL 0.53 (L) Sodium 136 - 144 mmol/L 141 Potassium 3.7 - 5.1 mmol/L 2.9 (L) Chloride 97 - 105 mmol/L 103 CO2 22 - 30 mmol/L 28 Anion Gap 9 - 18 mmol/L 10 Calcium 8.5 - 10.2 mg/dL 9.1 eGFR >=60 mL/min/1.73m 136 Legend: (H) High (L) Low No question data found. Assessment/Plan: 18 year old female who presents for evaluation of MCAS. A diagnosis of the so- called mast cell activation syndrome has been proposed to diagnose patients with a variety of symptoms and laboratory studies possibly suggestive of mast cell activation without meeting full criteria for diagnosing systemic mastocytosis. This diagnosis remains somewhat controversial with the proposed diagnostic criteriacontinuing to evolve, but at present it may be reasonable to consider this diagnosis if the serum tryptase is found to be significantly elevated when the patient experiences a flare of symptoms, and then falls back to the pt's baseline when symptoms recede to baseline. Included in the diagnostic criteria at present is also the existence of certain clinical symptoms which are significantly relieved with anti-mast cell cnc maintenance mechanic therapy (i.e. antihistamines - H1 H2 blockers, montelukast, etc.) Thus, if mast cell involvement remains in the differential diagnosis, recommend serial serum tryptase blood testing and correlation of tryptase values with patient symptoms. In addition, I recommend a standing order in order to check the tryptase serially within 4-6 hours of the onset of the patient's own flaring of symptoms. 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 -SHABANA PANEL BLOOD SCRN -Blood allergy inhalant panel to assess for inhalant allergies. -Will reach out will results of above testing once they are back -Given rash on abdomen, recommend limiting use of heating pad on stomach to avoid irritating rash further Discussed medication dosage, usage, side effects, and goals of treatment in detail. Follow-up: Return in about 4 weeks (around 02/12/2024). Patient advised to call or return sooner should current symptoms worsen or fail to improve or if new symptoms or problems arise. Nnamdi Orosco MD Allergy and Immunology [facility] Staff: Dr. Ward I saw and evaluated the patient. Discussed with the fellow and agree with resident's findings and plan as documented in the [place] note but addend, that there is was a consistent report of chronic /recurrent diarrhea noted. Flako Ward MD documented in this encounterGreen [facility]05-02-[facility]24 Instructions* Patient Instructions* Du Toledo APRN.[facility] - 01/07/2024 11:05 AM EDT UPPER RESPIRATORY INFECTIONS Most cases are caused by viruses and most cases are mild, temporary, and harmless. Symptoms can last 2 to 3 weeks and can include: nasal congestion, sore throat, coughing, muscles aches, headaches, nausea, diarrhea, fatigue and fever. 1. Drink plenty of fluids. 2. Get lots of rest. 3. Avoid dehydrants such as caffeine and alcohol. 4. Nasal saline is an effective decongestant and be used frequently throughout the day. 5. To loosen phlegm and help coughing, drink plenty of fluids and using a humidifier. 6. For sore throats, it is ok to use cough drops, throat sprays, or gargling warm salt water. 7. Always cover your mouth when you cough or sneeze, and wash your hands frequently. Avoid crowded areas like shopping centers, movies while you are sick so you don't chart picker a different virus, or infect others. 8. Avoid exposure to cigarettes or fumes. 9. Avoid irritants such as potpourri, dust, perfumes, scented candles and scented sprays 10. Air conditioning is an effective allergen and irritant avoidance strategy in the spring, summerand fall. 11. Honey is an effective cough suppressant. Try one tsp two to three times per day. 12. Mucinex every 12 hours with a full 10-12 ounces of water The below information is from prescribersletter.archify: Antibiotics will rarely help an upper respiratory infections. Antibiotics lead to more resistant infections that are harder to treat. There is little to no benefit to taking antibiotics for most acute upper respiratory tract infections. documented in this encounter[facility]05-[facility] History of Present illness Narrative* Du Toledo APRN.CNP - 01/07/2024 10:54 AM EDT This note was created using NoteWriter. Subjective Rhonda Cohen is a 18 year old female. HPI by patient: Rhonda is a 18 year old presenting to the office with the complaint of URI Started approximately a week ago Associated symptoms include sore throat, congestion, runny nose, cough and ear pain Denies any other concerns Covid Immunization Dates Overdue - Covid-19 Vaccine ( season) Never done No completion, postpone, frequency change, or communication history exists for this topic. Sick contacts: no Smoking history/second hand smoke: no OTC benadryl and claritin NO antibiotic use in the last 60 days. ALLERGIES Atarax [Hydroxyzine] Other: See Comments Comment:Patient has paradoxical effect, she is hyperalert and is up all night. Acetaminophen Diarrhea Chlorhexidine Rash Comment:Rash/burning Ciprofloxacin Other: See Comments Comment:Family history of the allergy Clindamycin Anaphylaxis Ibuprofen Diarrhea Lactose Diarrhea Peanut Butter Flavor Diarrhea, GI Upset Penicillins Other: See Comments Comment:06/29/23: Extensive family history of multiple antibiotic allergies including penicillins. Report multiple family members having anaphylaxis reactions. Red Dye Intolerance Tramadol Other: See Comments Comment:Blurred vision Family History Reviewed Including Cardiac Diseases, Psychiatric Diseases, & Substance Abuse Problem: Fibromyalgia Relation: Mother Age of Onset: (Not Specified) Problem: Cervical Cancer Relation: Mother Age of Onset: (Not Specified) Problem: other (diverticulitis) Relation: Mother Age of Onset: (Not Specified) Problem: Kidney Disease Relation: Father Age of Onset: (Not Specified) Problem: No Known Problems Relation: Sister Age of Onset: (Not Specified) Problem: Kidney stones Relation: Brother Age of Onset: (Not Specified) Problem: No Known Problems Relation: Brother Age of Onset: (Not Specified) Problem: No Known Problems Relation: Brother Age of Onset: (Not Specified) Problem: Bipolar disorder Relation: Maternal Grandmother Age of Onset: (Not Specified) Problem: other (endometriosis) Relation: Maternal Grandmother Age of Onset: (Not Specified) Problem: Heart Relation: Maternal Grandfather Age of Onset: (Not Specified) Problem: No Known Problems Relation: Paternal Grandmother Age of Onset: (Not Specified) Problem: Heart Attack Relation: Paternal Grandfather Age of Onset: (Not Specified) Problem: other (endometriosis) Relation: Other Age of Onset: (Not Specified) Social History Tobacco Use Smoking status: Never Passive exposure: Never Smokeless tobacco: Never Vaping Use Vaping Use: Never used Alcohol use: Never Drug use: Never Review of Systems Constitutional: Negative for chills and fever. HENT: Positive for congestion, ear pain, postnasal drip, rhinorrhea and sore throat. Respiratory: Positive for cough. Cardiovascular: Negative for chest pain. Allergic/Immunologic: Negative for immunocompromised state. Hematological: Negative for adenopathy. Objective BP 107/76 (BP Site: Right Arm, BP Position: Sitting, BP Cuff Size: Regular Adult) Pulse 105 Temp 36.2 C (97.2 F) (Right Tympanic) Resp 18 Ht 160 cm (5' 3) Wt 54.7 kg (120 lb 9.5 oz) LMP 12/03/2023 (Exact Date) SpO2 98% BMI 21.36 kg/m Physical Exam Vitals and nursing note reviewed. HENT: Right Ear: Tympanic membrane and ear canal normal. Left Ear: Tympanic membrane and ear canal normal. Nose: Congestion and rhinorrhea present. Mouth/Throat: Pharynx: Uvula midline. Posterior oropharyngeal erythema present. No oropharyngeal exudate. Cardiovascular: Rate and Rhythm: Normal rate and regular rhythm. Heart sounds: Normal heart sounds. Pulmonary: Effort: Pulmonary effort is normal. No respiratory distress. Breath sounds: Normal breath sounds. No stridor. No wheezing, rhonchi or rales. Chest: Chest wall: No tenderness. Lymphadenopathy: Cervical: No cervical adenopathy. Skin: General: Skin is warm and dry. Neurological: Mental Status: She is alert and oriented to person, place, and time. Assessment and Plan ASSESSMENT/PLAN: 1. Viral URI with cough - ICD9: 465.9, ICD10: J06.9 - Discussed viral etiology and rationale for treatment. - Symptomatic treatment with prn analgesia - Supportive care with fluids and rest - FLUTICASONE PROPIONATE 50 MCG/ACTUATION NASAL SPRAY,SUSPENSION - [id number] 2 MG-30 MG-10 MG/5 ML ORAL SYRUP Du Toledo APRN.CNP Medical Decision Making: Problems: Moderate: New problem with uncertain prognosis Data: Unique test(s) ordered: 1 Risk: Moderate: Drug management Medical Decision Making Level: 4 - Moderate documented in this encounterGreen [facility]04-18-[facility]24 Instructions* Patient Instructions* Claus Taylor APRN.CNP - 12/24/2023 4:09 PM EDT Schedule Allergy and Neurology consults Schedule glucose breath test (small intestinal bacterial overgrowth) [phone] Schedule MR enterography documented in this [facility] of Present illness Narrative* Claus Taylor APRN.CNP - 12/24/2023 3:50 PM EDT DEPARTMENT OF GASTROENTEROLOGY - FOLLOW UP VISIT HISTORY OF PRESENT ILLNESS Rhonda Cohen is a 18 year old female who presents today for follow up of abdominal pain. 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 07/01/2023 RUQ US IMPRESSION: No acute process is seen. 07/01/2023 Stool Fecal calpro elevated 2,580 +lactoferrin Negative enteric bacterial panel, cryptosporidium/giardia 07/02/2023 HIDA scan IMPRESSION: * Decreased gallbladder functional response/EF is compatible with chronic cholecystitis, in the appropriate clinical setting. * Patent cystic duct and CBD. 07/06/2023 EGD Impression: - 1 cm hiatal hernia (39 cm to 40 cm). - Mild antral gastritis, biopsied. - Small amount of residual food in the stomach body. - Otherwise unremarkable EGD. . FINAL DIAGNOSIS A. Duodenum, biopsy: - Duodenal mucosa with no pathologic diagnostic abnormality; negative for celiac disease, granulomas or dysplasia. B. Stomach, biopsy: - Gastric antral body type mucosa with mild chronic inactive gastritis; see comment. C. Esophagogastric junction, biopsy: - Squamous mucosa and inflamed gastric mucosa; negative for intestinal metaplasia or dysplasia. Diagnosis Comment SP LAB B. No microorganisms compatible with Helicobacter Pylori like organisms are identified by routine H&E-stained sections. MOST RECENT COLONOSCOPY: 11/2021 (Nasim Lind MD). Left-sided abdominal pain, change in bowel habit Normal TI Normal colonic mucosa Small internal hemorrhoids TI bx: (-) Colon bx: (-) 09/28/2023 Stool, fecal calpro NORMAL 8.84 PAST MEDICAL HISTORY Diagnosis Date Anxiety and depression History of IBS PAST SURGICAL HISTORY Procedure [facility] 07/06/2023 Current Outpatient Medications Medication Sig Dispense Refill diphenhydrAMINE (BENADRYL) 25 mg capsule hyoscyamine sublingual (LEVSIN/SL) 0.125 mg Dissolve 1 tablet under the tongue every 4 hours as needed (abdominlal pain). 120 tablet 2 fexofenadine (MELISA ALLERGY) 180 mg tablet Take 1 tablet by mouth once daily. 30 tablet 2 cholecalciferol, Vitamin D3, (VITAMIN D3) 1,250 mcg (50,000 unit) cap capsule Take 1 capsule by mouth one time a week. 12 capsule 1 DULoxetine (CYMBALTA) 20 mg capsule Take 1 capsule by mouth once daily. 90 capsule 0 ergocalciferol 50,000 unit capsule (VITAMIN D2, DRISDOL) Take 1 capsule by mouth one time a week for 7 doses. [address] (PROTONIX) 40 mg tablet Take 1 tablet by mouth two times a day before meals. (Patient taking differently: Take 40 mg by mouth as needed.) 60 tablet 2 fluocinolone (SYNALAR) 0.025 % ointment Apply to affected area as directed. APPLY TO AFFECTED AREA THREE TIMES DAILY FOR 2 WEEKS THEN TWICE A DAY FOR TWO WEEKS THEN ONCE A DAY FOR A MONTH THEN PRN 60g 0 peppermint oil (IBGARD) 90 mg CECX Take 1 capsule by mouth once daily as needed (INTESTINAL UPSET).48 capsule 0 No current facility-administered medications for this visit. ALLERGIES Allergen Reactions Atarax [Hydroxyzine] Other: See Comments Patient has paradoxical effect, she is hyperalert and is up all night. Acetaminophen Diarrhea Chlorhexidine Rash Rash/burning Ciprofloxacin Other: See Comments Family history of the allergy Clindamycin Anaphylaxis Ibuprofen Diarrhea Lactose Diarrhea Peanut Butter Flavor Diarrhea, GI Upset Penicillins Other: See Comments 06/29/23: Extensive family history of multiple antibiotic allergies including penicillins. Report multiple family members having anaphylaxis reactions. Red Dye Intolerance Tramadol Other: See Comments Blurred vision PHYSICAL EXAMINATION Wt 118 lb 13.3 oz (53.9kg) LMP 12/03/2023 General appearance: Appears well, alert, in no acute distress, well nourished. Skin: Skin color and temperature normal. Redness to entire abdomen, no raised rash Head: Normocephalic, atraumatic. No masses or lesions noted. Eyes: Anicteric sclera. Pupils are equally round. Ears: External ears normal Lungs: Normal effort Abdomen: Soft, non-distended. BS present, generalized tenderness with palpation Extremities: No deformities or pitting pedal edema noted. Psych: Pleasant affect, cooperative, A+O x3. IMPRESSION (R14.0) Abdominal bloating (primary encounter diagnosis) (R19.5) Elevated fecal calprotectin (R10.84) Generalized abdominal pain (R11.0) Nausea PLAN Schedule Allergy and Neurology consults Schedule glucose breath test (small intestinal bacterial overgrowth) Schedule MR enterography Plan is to follow up after test(s) I spent a total of 25 minutes on the date of the service which included preparing to see the patient, [id number] patient care, completing clinical documentation, counseling and educating the patient/family/caregiver, and ordering medications, tests, or procedures. Claus Taylor APRN.CNP December 24, 2023 documented [facility] History of Present illness Narrative* Taniya Negrete RDMS - 12/16/2023 2:45 PM EDT Radiology Service Progress Note PATIENT NAME: Rhonda Cohen DATE OF SERVICE: December 16, 2023 TIME: 4:01 PM PATIENT IDENTITY VERIFICATION COMPLETED USING TWO (2) IDENTIFIERS: Name and Date of confirmedby patient verbally and Name and Date of confirmed by identification band. FALL SCREENING: Has the patient had 2 falls in the last year or 1 fall with injury or currently using an Ambulatory Assistive Device (Walker, Cane, Wheelchair, Crutches, etc.)? No PATIENT GENDER DATA: Female. status: : No status: NO. PATIENT RELEVANT IMPLANT DATA REVIEWED: Not Applicable PATIENT PRESENTS WITH AN IMPLANTABLE OR ATTACHED CERAMICS TEST ENGINEER: No RADIOLOGY DEPARTMENT: Ultrasound PERIPHERAL IV DATA: Not applicable SIGNED BY: Taniya Negrete RDMS December 16, 2023 4:01 PM documented in this encounter[facility]04-[facility]24 NoteHNO ID: [id number] Author: TANIYA NEGRETE RDMS Service: Radiology Author Type: Health Social Work Professor Type: Progress Notes Filed: 12/16/2023 16:01 Note Text: Radiology Service Progress Note PATIENT NAME: Rhonda Cohen DATE OF SERVICE: December 16, 2023 TIME: 4:01 PM PATIENT IDENTITY VERIFICATION COMPLETED USING TWO (2) IDENTIFIERS: Name and Date of confirmed by patient verbally and Name and Date of confirmed by identification band. FALL SCREENING: Has the patient had 2 falls in the last year or 1 fall with injury or currently using an Ambulatory Assistive Device (Walker, Cane, Wheelchair, Crutches, etc.)? No PATIENT GENDER DATA: Female. status: : No status: NO. 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 Rhonda Cohen is a 18 year old female who presents for pelvic pressure and pain with intercourse that started about 4-5 days ago. Pt reports had some yellow discharge. Pt reports no fever, no dysuria. Pt reports some mild odor but nothing foul. Pt reports no h/o stds and no concerns today. No changes in Soaps or detergents, no new sexual partner. Pt reports h/o ovarian cyst- not sure if pain feels the same. Pt concerned maybe she left tampon inside with pressure she feels. Pt states not using BC, occasionally condoms. No other concerns today. OB History T0 L0 SAB0 IAB0 Ectopic0 Multiple0 Live Births0 Channeler Outsole History LMP: 09/11/2023 (Exact Date), Having periods Age at Menarche: Age at First : Age at Menopause: Channeler Outsole History Comments: Sexual Activity: Yes; No partner data on record Contraception: None, Pill PAST MEDICAL HISTORY Diagnosis Date Anxiety and depression History of IBS PAST SURGICAL HISTORY Procedure Laterality Date EGD W/O [facility] SPEC VARICIES INJ 07/06/2023 FAMILY HISTORY Problem Relation Age of Onset Fibromyalgia Mother Cervical Cancer Mother other (diverticulitis) Mother Kidney Disease Father No Known Problems Sister Kidney stones Brother No Known Problems Brother No Known Problems Brother Bipolar disorder Maternal Grandmother other (endometriosis) Maternal Grandmother Heart Maternal Grandfather No Known Problems Paternal Grandmother Heart Attack Paternal Grandfather other (endometriosis) Other Social History Tobacco Use Smoking status: Never Passive exposure: Never Smokeless tobacco: Never Vaping Use Vaping Use: Never used Substance Use Topics Alcohol use: Never Drug use: Never Current Outpatient Medications Medication Sig hyoscyamine sublingual (LEVSIN/SL) 0.125 mg Dissolve 1 tablet under the tongue every 4 hours as needed (abdominlal pain). fexofenadine (MELISA ALLERGY) 180 mg tablet Take 1 tablet by mouth once daily. cholecalciferol, Vitamin D3, (VITAMIN D3) 1,250 mcg (50,000 unit) cap capsule Take 1 capsule by mouth one time a week. DULoxetine (CYMBALTA) 20 mg capsule Take 1 capsule by mouth once daily. ergocalciferol 50,000 unit capsule (VITAMIN D2, DRISDOL) Take 1 capsule by mouth one time a week for [address] (PROTONIX) 40 mg tablet Take 1 tablet by mouth two times a day before meals. (Patient taking differently: Take 40 mg by mouth as needed.) fluocinolone (SYNALAR) 0.025 % ointment Apply to affected area as directed. APPLY TO AFFECTED AREA THREE TIMES DAILY FOR 2 WEEKS THEN TWICE A DAY FOR TWO WEEKS THEN ONCE A DAY FOR A MONTH THEN PRN peppermint oil (IBGARD) 90 mg CECX Take 1 capsule by mouth once daily as needed (INTESTINAL UPSET). No current facility-administered medications for this visit. Allergies As of Date: 12/16/2023 Allergen Noted Reaction ATARAX [HYDROXYZINE] 06/30/2023 Other: See Comments ACETAMINOPHEN 05/27/2022 Diarrhea CHLORHEXIDINE 06/29/2023 Rash CIPROFLOXACIN 06/29/2023 Other: See Comments CLINDAMYCIN 06/29/2023 Anaphylaxis IBUPROFEN 05/27/2022 Diarrhea LACTOSE 11/02/2021 Diarrhea PEANUT BUTTER FLAVOR 04/29/2023 Diarrhea and GI Upset PENICILLINS 01/08/2019 Other: See Comments RED DYE 07/05/2023 Intolerance TRAMADOL 09/11/2023 Other: See Comments Fully Assessed 12/12/2023 REVIEW OF SYSTEMS Abdomen: pressure in pelvis Bladder: no dysuria .. Expanded ROS: GENERAL: Negative for fever Allergies and current medication updated:Yes EXAM: BP 100/60 Wt 120 lb (54.4kg) LMP 12/03/2023 GENERAL: pleasant, female in no apparent distress HEENT: Normocephalic and atraumatic NECK: Supple and full range of motion DERMATOLOGY: Normal and without lesions ABDOMEN: soft, non-tender, and no masses PELVIC: external genitalia normal, normal Bartholin's glands, urethra, [place]'s glands, no vulvar lesions, no cervical lesions, good vaginal support, physiologic discharge present, normal appearing perineal body and perianal region BIMANUAL: uterus normal size, shape and consistency, no adnexal masses, mild tenderness, and ? Fullness on right NEURO: alert and oriented x3,exam grossly non-focal EXTREMITIES: normal ASSESSMENT AND PLAN: Encounter Diagnosis ICD-10-CM 1. Pelvic pressure in female R10.2 US FEMALE PELVIS TRANSVAG URINE CULTURE 2. Vaginal discharge N89.8 KANG/TRICHOMONAS NAAT BACTERIAL VAGINOSIS NAAT 3. Female dyspareunia N94.10 US FEMALE PELVIS TRANSVAG 4. Will call patient with results- discussed relief measures- does not use tylenol or motrin. Will try heating pad. Medical Decision Making: Problems: Moderate: New problem with uncertain prognosis Data: Unique test(s) ordered: 3+ Medical Decision Making Level: 4 - Moderate . Maria Madrid MD documented in this encounterGreen [facility]2024 History of Present illness Narrative* Yanci Lewis APRN.BOOKING SUPERVISOR - 12/12/2023 11:01 AM EDT This note was created using Begunriter. Subjective Rhonda Cohen is a 18 year old female. HPI by patient: Rhonda Cohen is a 18 year old presenting to the office with the complaint of viral symptoms. Started yesterday. Associated symptoms include maybe some diarrhea? Is nauseated but then states she always is. Has more fatigue that her baseline. Denies congestion, vomiting, cough, body aches, fever, ear pain, sore throat, and headache. Wants a viral swab done. History of chronic GI symptoms. Covid Immunization Dates Overdue - Covid-19 Vaccine ( season) Never done No completion, postpone, frequency change, or communication history exists for this topic. Sick contacts: unsure. Smoking history/second hand smoke: none. OTC not used. No antibiotic use in the last 60 days. ALLERGIES Atarax [Hydroxyzine] Other: See Comments Comment:Patient has paradoxical effect, she is hyperalert and is up all night. Acetaminophen Diarrhea Chlorhexidine Rash Comment:Rash/burning Ciprofloxacin Other: See Comments Comment:Family history of the allergy Clindamycin Anaphylaxis Ibuprofen Diarrhea Lactose Diarrhea Peanut Butter Flavor Diarrhea, GI Upset Penicillins Other: See Comments Comment:06/29/23: Extensive family history of multiple antibiotic allergies including penicillins. Report multiple family members having anaphylaxis reactions. Red Dye Intolerance Tramadol Other: See Comments Comment:Blurred vision Family History Reviewed Including Cardiac Diseases, Psychiatric Diseases, & Substance Abuse Problem: Fibromyalgia Relation: Mother Age of Onset: (Not Specified) Problem: Cervical Cancer Relation: Mother Age of Onset: (Not Specified) Problem: other (diverticulitis) Relation: Mother Age of Onset: (Not Specified) Problem: Kidney Disease Relation: Father Age of Onset: (Not Specified) Problem: No Known Problems Relation: Sister Age of Onset: (Not Specified) Problem: Kidney stones Relation: Brother Age of Onset: (Not Specified) Problem: No Known Problems Relation: Brother Age of Onset: (Not Specified) Problem: No Known Problems Relation: Brother Age of Onset: (Not Specified) Problem: Bipolar disorder Relation: Maternal Grandmother Age of Onset: (Not Specified) Problem: other (endometriosis) Relation: Maternal Grandmother Age of Onset: (Not Specified) Problem: Heart Relation: Maternal Grandfather Age of Onset: (Not Specified) Problem: No Known Problems Relation: Paternal Grandmother Age of Onset: (Not Specified) Problem: Heart Attack Relation: Paternal Grandfather Age of Onset: (Not Specified) Problem: other (endometriosis) Relation: Other Age of Onset: (Not Specified) Social History Tobacco Use Smoking status: Never Passive exposure: Never Smokeless tobacco: Never Vaping Use Vaping Use: Never used Alcohol use: Never Drug use: Never Active Ambulatory Problems Nausea & vomiting Date Noted: 10/31/2021 Diarrhea Date Noted: 10/31/2021 Abdominal pain Date Noted: 10/31/2021 Adjustment disorder Date Noted: 10/31/2021 Irregular menstrual cycle Date Noted: 05/01/2022 Colitis Date Noted: 06/29/2023 Depression Date Noted: 07/01/2023 Anxiety Date Noted: 07/01/2023 High anion gap metabolic acidosis Date Noted: 07/04/2023 Ketosis (HCC) Date Noted: 07/04/2023 Resolved Ambulatory Problems Abdominal pain of unknown etiology Date Noted: 10/31/2021 Past Medical History: No date: Anxiety and depression No date: History of IBS Review of Systems Constitutional: Positive for fatigue. Negative for chills and fever. HENT: Negative. Eyes: Negative. Respiratory: Negative. Cardiovascular: Negative. Gastrointestinal: Positive for nausea. Negative for vomiting. Diarrhea: ?. Endocrine: Negative. Genitourinary: Negative. Musculoskeletal: Negative. Skin: Negative. Neurological: Negative. Hematological: Negative. Objective BP 126/71 Pulse 112 Temp 36.2 C (97.1 F) Wt 58 kg (127 lb 13.9 oz) LMP 09/11/2023 (Exact Date) SpO2 97% BMI 22.66 kg/m Physical Exam Vitals reviewed. Constitutional: General: She is not in acute distress. Appearance: She is not ill-appearing, toxic-appearing or diaphoretic. HENT: Head: Normocephalic and atraumatic. Right Ear: Tympanic membrane, ear canal and external ear normal. Left Ear: Tympanic membrane, ear canal and external ear normal. Nose: Nose normal. Right Sinus: No maxillary sinus tenderness or frontal sinus tenderness. Left Sinus: No maxillary sinus tenderness or frontal sinus tenderness. Mouth/Throat: Mouth: Mucous membranes are moist. Pharynx: Oropharynx is clear. No oropharyngeal exudate or posterior oropharyngeal erythema. Cardiovascular: Rate and Rhythm: Normal rate and regular rhythm. Pulmonary: Effort: Pulmonary effort is normal. Breath sounds: Normal breath sounds. Abdominal: General: Bowel sounds are normal. Palpations: Abdomen is soft. Tenderness: There is generalized abdominal tenderness. There is no right CVA tenderness, left CVA tenderness, guarding or rebound. Lymphadenopathy: Head: Right side of head: No submandibular or tonsillar adenopathy. Left side of head: No submandibular or tonsillar adenopathy. Cervical: No cervical adenopathy. Neurological: Mental Status: She is alert. Psychiatric: Behavior: Behavior is cooperative. Assessment and Plan (R53.83) Fatigue, unspecified type (primary encounter diagnosis) Plan: COVID & INFLUENZA A/B NAAT, ROUTINE Education on viral vs bacterial infections. Most viral infections will last 10 days, sometimes 14. It is possible to have back to back viral infections. An antibiotic will not treat a virus. -Covid/flu test for rule out, results in 24 hours, isolation in the interim. [facility] -Drink lots of fluids and get plenty of rest. BRAT diet as tolerated. -Make follow up with primary care for monitoring and resolution in symptoms. -Signs that warrant an ER evaluation: Sudden change/worsening in condition, lethargy, signs of dehydration, fever greater than 102 F thatis not responding to Tylenol or ibuprofen (Motrin, Advil), drooling, difficulty swallowing, difficulty breathing, shortness of breath, chest pain, evidence of airway compromise (tripod position, neck extension, retractions), seizures, changes in mental status, or other concerns. The patient will pursue further outpatient evaluation with the primary care physician or another Urgent Care/Express Care as outlined in the after visit summary. The patient is agreeable to this planof care and follow-up instructions have been explained in detail. The patient has received these instructions in written format and have expressed an understanding of the after visit summary. Medical Decision Making: Level: 4 - Moderate I spent a total of 20 minutes on the date of the service which included preparing to see the patient, [id number] patient care, completing clinical documentation, obtaining and/or reviewing separately obtained history, performing a medically appropriate examination, counseling and educating the pat ient/family/caregiver, and ordering medications, tests, or procedures. This patient encounter involved the screening or treatment of novel coronavirus infection (COVID-19). documented in this encounterGreen [facility] Hospital2024 Instructions* Patient Instructions* Yanci Lewis APRN.CNP - 12/12/2023 11:01 AM EDT (R53.83) Fatigue, unspecified type (primary encounter diagnosis) Plan: COVID & INFLUENZA A/B NAAT, ROUTINE Education on viral vs bacterial infections. Most viral infections will last 10 days, sometimes 14. It is possible to have back to back viral infections. An antibiotic will not treat a virus. -Covid/flu test for rule out, results in 24 hours, isolation in the interim. Result to mychart. -Drink lots of fluids and get plenty of rest. BRAT diet as tolerated. -OTC tylenol as directed on the bottle. -Make follow up with primary care for monitoring and resolution in symptoms. -Signs that warrant an ER evaluation: Sudden change/worsening in condition, lethargy, signs of dehydration, fever greater than 102 F thatis not responding to Tylenol or ibuprofen (Motrin, Advil), drooling, difficulty swallowing, difficulty breathing, shortness of breath, chest pain, evidence of airway compromise (tripod position, neck extension, retractions), seizures, changes in mental status, or other concerns. BRAT DIET Bananas Applesauce [place] Saltine Cracker Animal Crackers Vanilla Wafers Pretzels Oatmeal Unsweetened Dry Cereal (Rice Krispies,Cheerios) Plain Baked or Boiled Potato Plain White Rice Plain Noodles All clear liquids listed below CLEAR LIQUID DIET Broth Jello Popsicles Pedialyte Gatorade NO Juices No milk or diary products documented in this encounterGreen Cross Hospital12-08-2023 History of Present illness Narrative* Petra Trejo APRN.CNP - 08/14/2023 12:53 PM EST patient declined manugrapher Rhonda is a 18 year old who presents for an annual gynecologic exam irregular menses and LLQ pain. Not taking OCP Presents: alone Menses: cycles every 25-45 days and 4-6 days of flow. Contraception: none HPV vaccine: No Last pap smear: never Sexually active: Yes OB History T0 L0 SAB0 IAB0 Ectopic0 Multiple0 Live Births0 Channeler Outsole History LMP: 08/07/2023 (Exact Date), Having periods Age at Menarche: Age at First : Age at Menopause: Channeler Outsole History Comments: Sexual Activity: Yes; No partner data on record Contraception: None, Pill PAST MEDICAL HISTORY Diagnosis Date Anxiety and depression History of IBS PAST SURGICAL HISTORY Procedure Laterality Date EGD W/O [facility] SPEC VARICIES INJ 07/06/2023 FAMILY HISTORY Problem Relation Age of Onset Fibromyalgia Mother Cervical Cancer Mother other (diverticulitis) Mother Kidney Disease Father No Known Problems Sister Kidney stones Brother No Known Problems Brother No Known Problems Brother Bipolar disorder Maternal Grandmother other (endometriosis) Maternal Grandmother Heart Maternal Grandfather No Known Problems Paternal Grandmother Heart Attack Paternal Grandfather other (endometriosis) Other SOCIAL HISTORY Social History Tobacco Use Smoking status: Never Passive exposure: Never Smokeless tobacco: Never Vaping Use Vaping Use: Never used Substance Use Topics Alcohol use: Never Drug use: Never REVIEW OF SYSTEMS Abdomen: No bloating, early satiety, indigestion, or increased flatulence. No abdominal pain, vomiting, diarrhea, or constipation. +nausea Bladder: No dysuria, gross hematuria, urinary frequency, urinary urgency, or incontinence. Breast: No breast lumps, nipple d/c, overlying skin changes, redness or skin retraction. Allergies and current medication updated:Yes EXAM: Ht 5' 3.75 (1.62m) Wt 116 lb 9.6 oz (52.9kg) LMP 08/07/2023 BMI 20.18 kg/(m^2). GENERAL: pleasant, Female in no apparent distress HEENT: Normocephalic, atraumatic, mucus membranes moist, and no lesions BREAST: soft, non-tender, symmetric, no dominant mass, normal nipple-areolar complex, no lymphadenopathy, and no nipple discharge CHEST: Normal inspiratory effort PELVIC: external genitalia normal, normal Bartholin's glands, urethra, [place]'s glands, no cervical lesions, good vaginal support, physiologic discharge present, normal appearing perineal body and perianal region, rash is much improved just a very small area of scaly skin. BIMANUAL: deferred NEURO: alert and oriented x3,exam grossly non-focal EXTREMITIES: normal ASSESSMENT/PLAN: 1) Health maintenance: Pap starting at the age of 21. Nutrition, exercise, and routine health maintenance exams reviewed. 2) Contraception: none. Contraceptive options reviewed and information provided. 3) STD screening: Declined STD check. 4) Follow up one year or sooner as needed. Petra Trejo APRN.IFTIKHAR documented in this encounterGreen Cross Hospital10-31-2023 History of Present illness Narrative* Chrystal Allen APRN.CNP - 07/07/2023 12:59 PM EDT This note was created using NoteWriter. Subjective Rhonda Cohen is a 18 year old female, here for follow-up after 1-week inpatient for colitis. EGD completed during stay and showed mild gastritis, duodenal biopsy results pending. Previously received care through [facility], looking to establish care with PCP. Would like to see if could be wo rked up for [facility]. Has seen raw finish mill operator in the past but can't afford a specialist co-pay right now. Able to eat, starting a couple days ago in hospital. Water can be difficult to drink right now d/t vomiting episodes. Tolerated Gatorade and clifford amanda in the hospital. Has GI follow-up scheduled in September, interested in seeing that specific provider based on a friend's recommendation. History of anxiety and depression, states more anxiety now, but will turn more into depression as seasons change. Has been on 2 different SSRI's (zoloft and prozac), didn't work well for her. Had counseling in the past, but can't afford it now. Review of Systems Constitutional: Positive for fatigue. Negative for chills and fever. Respiratory: Negative. Cardiovascular: Negative. Gastrointestinal: Positive for abdominal distention, abdominal pain, diarrhea, nausea and vomiting.Negative for anal bleeding and blood in stool. Abdominal pain - migratory, currently 1.5/10 - lower abdomen is pressure, epigastric - burning, stabbing Genitourinary: Negative. Musculoskeletal: Positive for myalgias. PAST MEDICAL HISTORY Diagnosis Date Anxiety and depression History of IBS PAST SURGICAL HISTORY Procedure Laterality Date EGD W/O BRSH SPEC VARICIES INJ 07/06/2023 ALLERGIES Atarax [Hydroxyzine], Acetaminophen, Chlorhexidine, Ciprofloxacin, Clindamycin, Ibuprofen, Lactose, Peanut Butter Flavor, Penicillins, and Red Dye MEDICATIONS DULoxetine (CYMBALTA) 20 mg capsule Take 1 capsule by mouth once daily. [START ON 07/10/2023] ergocalciferol 50,000 unit capsule (VITAMIN D2, DRISDOL) Take 1 capsule by mouth one time a week for [address] (PROTONIX) 40 mg tablet Take 1 tablet by mouth two times a day before meals. scopolamine (TRANSDERM-SCOP) patch 1.5 mg/72 hr (delivers 1 mg over 3 days) Apply 1 Patch as directed every 72 hours. fluocinolone (SYNALAR) 0.025 % ointment Apply to affected area as directed. APPLY TO AFFECTED AREA THREE TIMES DAILY FOR 2 WEEKS THEN TWICE A DAY FOR TWO WEEKS THEN ONCE A DAY FOR A MONTH THEN PRN Norethindrone Acet-Ethinyl Est (LOESTRIN 09/26, ,) 1-20 mg-mcg per tablet Take 1 tablet by mouth once daily. peppermint oil (IBGARD) 90 mg CECX Take 1 capsule by mouth once daily as needed (INTESTINAL UPSET). FAMILY HISTORY Problem Relation Age of Onset Fibromyalgia Mother Cervical Cancer Mother other (diverticulitis) Mother Kidney Disease Father No Known Problems Sister Kidney stones Brother No Known Problems Brother No Known Problems Brother Bipolar disorder Maternal Grandmother other (endometriosis) Maternal Grandmother Heart Maternal Grandfather No Known Problems Paternal Grandmother Heart Attack Paternal Grandfather other (endometriosis) Other Social History Tobacco Use Smoking status: Never Smokeless tobacco: Never Vaping Use Vaping Use: Never used Substance Use Topics Alcohol use: Never Drug use: Never Objective BP 104/54 Pulse 86 Ht 162.6 cm (5' 4) Wt 53.5 kg (118 lb) LMP 06/11/2023 (Exact Date) SpO2 100% BMI 20.25 kg/m Physical Exam Constitutional: Appearance: Normal appearance. HENT: Mouth/Throat: Mouth: Mucous membranes are moist. Pharynx: Oropharynx is clear. Cardiovascular: Rate and Rhythm: Normal rate and regular rhythm. Heart sounds: Normal heart sounds. Pulmonary: Effort: Pulmonary effort is normal. Breath sounds: Normal breath sounds. Abdominal: General: Abdomen is flat. Bowel sounds are normal. Palpations: Abdomen is soft. Skin: General: Skin is warm and dry. Neurological: General: No focal deficit present. Mental Status: She is alert and oriented to person, place, and time. Mental status is at baseline. Psychiatric: Mood and Affect: Mood normal. Behavior: Behavior normal. Thought Content: Thought content normal. Judgment: Judgment normal. Assessment and Plan 1. Colitis Continue scopalamine patches, apply 1 patch (once every 3 days) to clean, dry skin (rotate site every 3 days). Protonix twice per day - one in AM approx 30-60 mins prior to eating and one in PM approx 30-60 mins prior to eating. Follow up with GI provider as scheduled, may need to be sooner for any new, worsening or persistentsymptoms. ER for red flag symptoms. Encouraged raw finish mill operator consult to work up MCAS, can discuss further with Dr. Villarreal. 2. Adjustment disorder with mixed anxiety and depressed mood Continue current dose of Cymbalta - this may take 4-6 weeks for full effectiveness. Report back in 1 month via [employer] message and can consider increasing dose at that time. Colleen Moore, TATE, RN (EXTENSION SERVICE AGENT Body Make Up Artist) TEACHING PROVIDER (Physician/PA/CLOTH COLORS EXAMINER) NOTE OF PERSONAL INVOLVEMENT IN CARE: I have personally seen and examined the patient and performed the medical decision-making components. I have reviewed the Advanced Practice Registered Nurse (CLOTH COLORS EXAMINER) Student's documentation and verified the findings in the note as written. Any additions or changes are noted in bold/italics. Signature: Chrystal Allen Date: 07/07/2023 Time: 2:53 PM documented in this encounterGreen Cross Hospital08-23-2023 History of Present illness Narrative* Tiara Maldonado APRN.BOOKING SUPERVISOR - 04/29/2023 9:33 AM EDT SUBJECTIVE: Rhonda Cohen is a 18 year old female. Who presents today with sore throat congestion facial pressure. She has had her symptoms since sat. She has no fever. She has tested for covid at home and it is negative. She was exposed to her mom who is positive for covid. She has not taken any medication for her symptoms. She is here for a strep test. HPI PAST MEDICAL HISTORY Diagnosis Date Anxiety and depression History of IBS FAMILY HISTORY Problem Relation Age of Onset Fibromyalgia Mother Cervical Cancer Mother other (diverticulitis) Mother Kidney Disease Father No Known Problems Sister Kidney stones Brother No Known Problems Brother No Known Problems Brother Bipolar disorder Maternal Grandmother Heart Maternal Grandfather No Known Problems Paternal Grandmother Heart Attack Paternal Grandfather Social History Tobacco Use Smoking status: Never Smokeless tobacco: Never Vaping Use Vaping Use: Never used Substance Use Topics Alcohol use: Never Drug use: Never ALLERGIES Allergen Reactions Acetaminophen Diarrhea Ibuprofen Diarrhea Lactose Diarrhea Peanut Butter Flavor Diarrhea, GI Upset Penicillins Anaphylaxis Current Outpatient Medications Medication Sig Dispense Refill Drospirenone-Ethinyl Estradiol (ARMANI, 28,) 3-0.03 mg per tablet Take 1 tablet by mouth once daily. 90 tablet 3 L. acidophilus-L. rhamnosus (FLORAJEN WOMEN) 15 billion cell cap Take 1 capsule by mouth once daily. (Patient not taking: Reported on 04/29/2023) [address] (PROTONIX) 20 mg tablet Take 1 tablet by mouth DAILY (6 AM). 30 tablet 0 ondansetron orally disintegrating (ZOFRAN ODT) 4 mg disintegrating tablet Take 1 tablet by mouth every 8 hours as needed for nausea/vomiting. (Patient not taking: Reported on 04/29/2023) 20 tablet 0 peppermint oil (IBGARD) 90 mg CECX Take 1 capsule by mouth once daily as needed (INTESTINAL UPSET).(Patient not taking: Reported on 04/29/2023) 48 capsule 0 sertraline (ZOLOFT) 25 mg tablet Take 25 mg by mouth once daily. (Patient not taking: Reported on 04/29/2023) No current facility-administered medications for this visit. OBJECTIVE: BP 105/70 Pulse 94 Temp 36.4 C (97.5 F) Resp 16 Ht 162.6 cm (5' 4) Wt 55.8 kg (123 lb) LMP 01/22/2022 SpO2 99% BMI 21.11 kg/m ROS all other systems reviewed and are negative Physical Exam Constitutional: Well developed, well nourished, NAD, A&O X3. ENT: Head is atraumatic, airway patent, mucosal membranes moist pink no SENIOR BENEFITS SPECIALIST no exudate Neck: supple with no palpable lymph nodes Cardiac: Heart tone normal rate and rhythm Respiratory: Breath sounds clear : no CVA tenderness MS: no swelling, tenderness or deformity in upper or lower extremities, no midline tenderness in cervical, thoracic or lumbar spine. Neuro: strength sensation and coordination intact. CN II-XII grossly intact, Skin: warm and dry with out rash, lesion or ecchymosis on exposed skin Psych: alert appropriate, speech clear It was a pleasure to take care of Rhonda Cohen today. She has declined a covid test today. Her strep test is negative. We have discussed OTC medication she my use for her symptoms. She will increase her hydration and eat soft foods. She will advance her diet as tolerated. Patient will follow up with family physician. They may return to the Urgent Care or go to the ER for worsening symptoms or concerns. Patient verbalized understanding of plan of care and is in agreement. ASSESSMENT/PLAN: 1. Sore throat - ICD9: 462, ICD10: J02.9 - STREP A MOLECULAR (POC) Tiara Maldonado APRN.BOOKING SUPERVISOR documented in this encounterGreen Cross Hospital02-09-2023 History of Present illness Narrative* Cayla Diamond APRN.IFTIKHAR - 10/16/2022 7:09 PM EST Patient came in with complaints of severe lower abdominal pain. Said she woke up from a nap and hada 7/10 abdominal pain. Now its a dull ache between 4-6 at times. Patient has never experienced thisbefore. Denies any other symptoms. Upon palpation patient was grimacing. Patient is being referred to the ER for full workup. Patient was okay with this care plan and caregiver was going to take her. documented in this encounterGreen Cross Hospital08-25-2022 Instructions* Patient Instructions* Prema Mulligan MD - 05/01/2022 8:38 AM EDT Get labs drawn between 8-9:00 am I will send you a message in my chart once the lab results become available Follow up to be determined based on the results documented in this encounterGreen Cross Hospital08-25-2022 History of Present illness Narrative* Prema Mulligan MD - 05/01/2022 8:11 AM EDT PATIENT NAME: Rhonda Cohen SERVICE DATE: 05/01/2022 REASON FOR CONSULT: Evaluation of ovarian hyperandrogenism REQUESTING PHYSICIAN: Ayana Umana [address] [facility] [id number] Subjective HISTORY OF PRESENT ILLNESS: Ms. Cohen is a 17 year old female presenting as a new patient to me for evaluation of PCOS. History in brief, she has been experiencing chronic abdominal pain, which occurs after meals. This is associated with decrease appetite, bloating and constipation. She has been eating small snacks throughout the day. She saw GI and underwent EGD and C scope. Weight loss of 12 lbs She was found to have ovarian cysts in the past. Further evaluation revealed Elevated testosterone level (53) NIH Criteria oligo/arovulation: yes evidence of hyperandrogenism: acne other causes excluded: yes Acne:facial acne which recently increased Hirsutism started: No Patient uses mechanical hair removal (i.e. tweezers/waxing/shaving): N/A LMP: Patient's last menstrual period was 01/22/2022. Menarche: 9 years old Her menses are irregular, 6/12 months per year She also reports heavy menses Number of Pregnancies: Planning a : no Currently taking oral contraception: no The patient comes into the office today with complaints of painful sex and orgasms. She also reports low BP and craving salty food. PAST MEDICAL HISTORY Diagnosis Date Anxiety and depression History of IBS PAST SURGICAL HISTORY Procedure Laterality Date NONE FAMILY HISTORY Problem Relation Age of Onset Fibromyalgia Mother Cervical Cancer Mother other (diverticulitis) Mother Kidney Disease Father No Known Problems Sister Kidney stones Brother No Known Problems Brother No Known Problems Brother Bipolar disorder Maternal Grandmother Heart Maternal Grandfather No Known Problems Paternal Grandmother Heart Attack Paternal Grandfather Social History Tobacco Use Smoking status: Never Smokeless tobacco: Never Vaping Use Vaping Use: Never used Substance Use Topics Alcohol use: Never Drug use: Never MEDICATIONS: Current Outpatient Medications Medication Sig Dispense Refill L. acidophilus-L. rhamnosus (FLORAJEN WOMEN) 15 billion cell cap Take 1 capsule by mouth once daily. 30 capsule 2 ondansetron orally disintegrating (ZOFRAN ODT) 4 mg disintegrating tablet Take 1 tablet by mouth every 8 hours as needed for nausea/vomiting. 20 tablet 0 peppermint oil (IBGARD) 90 mg CECX Take 1 capsule by mouth once daily as needed (INTESTINAL UPSET).48 capsule 0 sertraline (ZOLOFT) 25 mg tablet Take 25 mg by mouth once daily. pantoprazole DR (PROTONIX) 20 mg tablet Take 1 tablet by mouth DAILY (6 AM). 30 tablet 0 No current facility-administered medications for this visit. ALLERGIES Allergen Reactions Lactose Diarrhea Penicillins Anaphylaxis COMPLETE REVIEW OF SYSTEMS: Answers submitted by the patient for this visit: Endocrine Review of Systems (Submitted on 05/01/2022) Fatigue: Yes Night Sweats: No Recent Unintentional Weight Change: Yes Skin Color Changes: No Post-Nasal Drip: No Thyroid Pain (lower neck): No Trouble Swallowing: No Vision Disturbance: No Chest Pain: No Leg Swelling: No Blood Clots?: No Leg Pain while walking?: Yes Difficulty Breathing?: Yes Heartburn: No Nausea: Yes Vomiting?: No Diarrhea: Yes Constipation: Yes Abdominal Pain: Yes Bone Pain?: Yes Muscle Aches: Yes Muscle Weakness: Yes Joint Pain or Stiffness: No Headaches: Yes Dizziness: Yes Numbness?: No Urgency to Urinate?: No Increased Urination?: No Slow or Small Urine Stream?: Yes Are your menstrual cycles regular?: No Are your menstrual cycles irregular?: Yes Have your menstrual cycles stopped?: No Flushing?: No Hot Flashes?: No Increased Thirst: Yes Change in Body Hair?: Yes Cold Intolerance: Yes Heat Intolerance?: Yes Objective PHYSICAL EXAM: Resp 16 Ht 162.4 cm (5' 3.94) Wt 53.7 kg (118 lb 6.4 oz) LMP 01/22/2022 BMI 20.36 kg/m2 APPEARANCE:Well appearing, alert, in no acute distress, well-hydrated, well nourished. EYES: anicteric sclera, EOMI NECK:neck supple, no adenopathy; thyroid symmetric, normal size THYROID:normal to inspection, palpation and auscultation THYROID SIZE:normal HEART:RRR with normal S1 and S2, no murmurs, no gallops LUNGS:clear to auscultation ABD:bowel sounds normoactive, no bruits, soft, non-tender, non-distended EXTREMITIES:Normal, No deformities, No skin discoloration, No edema, NEURO:Awake, alert and oriented x 3, No focal findings SKIN:appears pale, no skin hyper pigmentations, Skin color, texture, turgor normal, no suspicious rashes or lesions DATA: Diagnostic tests reviewed for today's visit: Most recent labs Latest Reference Range & Units 01/24/22 11:46 03/29/22 09:08 TSH 0.510 - 4.300 mIU/L 0.875 DHEA-S 65.1 - 368.0 ug/dL 55.1 (L) 56.3 (L) Estradiol 17B pg/mL 36 FSH See comment mIU/mL 6.2 Hydroxyprogesterone <=206.00 ng/dL 33.90 LH See comment mIU/mL 8.5 Testosterone <40 ng/dL 53 (H) Impression/Recommendations Assessment/Plan: Elevated testosterone level Irregular menses Low BP Salt craving Reviewed and discussed her previous bio-chemical evaluation, which is suggestive of PCOS Interestingly, DHEA-S level is not elevated She has few symptoms suggestive of Adrenal Insufficiency Check 8:00 am cortisol and ACTH levels Recheck DHEA-S We discussed further evaluation with ACTH stim test if her cortisol level comes back low If doesn't have Adrenal Insufficiency, then my suggestion is to see functional medicine Reviewed treatment options for PCOS- which includes OCP Given low BP, I dont recommend using Aldactone. She might have Gastroparesis, needs further GI evaluation I will send patient a message in my chart once the lab results become available Follow up to be determined based on the results SIGNATURE: Prema Mulligan MD DATE: May 01, 2022 TIME: 8:11 AM documented in this encounterGreen Cross Hospital06-15-2022 History of Present illness Narrative* Ayana Umana MD - 02/19/2022 3:59 PM EDT Rhonda Cohen is a 16 year old female who presents for follow up. HPI: She states after reviewing her labs she has questions about Rapides's disease. She has a list of her most recent symptoms with her today which include: fatigue, muscle weakness, mood changes, loss of appetie and unintentional weight loss, lethary, frequent urination, craving salty food, low blood pressure. OB History T0 L0 SAB0 IAB0 Ectopic0 Multiple0 Live Births0 Channeler Outsole History LMP: 01/22/2022, Having periods Age at Menarche: Age at First : Age at Menopause: Channeler Outsole History Comments: Sexual Activity: Yes; No partner data on record Contraception: None PAST MEDICAL HISTORY Diagnosis Date Anxiety and depression History of IBS PAST SURGICAL HISTORY Procedure Laterality Date NONE FAMILY HISTORY Problem Relation Age of Onset Fibromyalgia Mother Cervical Cancer Mother other (diverticulitis) Mother Kidney Disease Father No Known Problems Sister Kidney stones Brother No Known Problems Brother No Known Problems Brother Bipolar disorder Maternal Grandmother Heart Maternal Grandfather No Known Problems Paternal Grandmother Heart Attack Paternal Grandfather Social History Tobacco Use Smoking status: Never Smoker Smokeless tobacco: Never Used Vaping Use Vaping Use: Never used Substance Use Topics Alcohol use: Never Drug use: Never Current Outpatient Medications Medication Sig pantoprazole DR (PROTONIX) 20 mg tablet Take 1 tablet by mouth DAILY (6 AM). ondansetron orally disintegrating (ZOFRAN ODT) 4 mg disintegrating tablet Take 1 tablet by mouth every 8 hours as needed for nausea/vomiting. peppermint oil (IBGARD) 90 mg CECX Take 1 capsule by mouth once daily as needed (INTESTINAL UPSET). sertraline (ZOLOFT) 25 mg tablet Take 25 mg by mouth once daily. L. acidophilus-L. rhamnosus (FLORAJEN WOMEN) 15 billion cell cap Take 1 capsule by mouth once daily. No current facility-administered medications for this visit. Allergies As of Date: 02/19/2022 Allergen Noted Reaction LACTOSE 11/02/2021 Diarrhea PENICILLINS 01/08/2019 Anaphylaxis Fully Assessed 02/19/2022 REVIEW OF SYSTEMS Expanded ROS: See HPI. Allergies and current medication updated:Yes EXAM: BP 104/60 Wt 118 lb (53.5kg) LMP 01/22/2022 GENERAL: pleasant, female in no apparent distress HEENT: Normocephalic, atraumatic, mucus membranes moist and no lesions NECK: full range of motion DERMATOLOGY: Normal, without lesions, non-icteric and non-hirsute CHEST: Normal inspiratory effort NEURO: exam grossly non-focal EXTREMITIES: normal ASSESSMENT AND PLAN: Encounter Diagnosis ICD-10-CM 1. Other acne L70.8 TESTOSTERONE TOTAL DHEA-S BLD 2. Vaginal discharge N89.8 L. acidophilus-L. rhamnosus (FLORAJEN WOMEN) 15 billion cell cap 3. Irregular periods N92.6 TESTOSTERONE TOTAL DHEA-S BLD 4. Chronic pelvic pain in female R10.2 CONSULT TO SUSTAINABILITY SPECIALIST PELVIC PAIN G89.29 5. Abnormal laboratory test result R89.9 CONSULT TO ENDOCRINOLOGY 6. Malaise and fatigue R53.81 CONSULT TO ENDOCRINOLOGY R53.83 7. Muscle weakness M62.81 CONSULT TO ENDOCRINOLOGY 8. Loss of appetite R63.0 CONSULT TO ENDOCRINOLOGY Reviewed blood work and pelvic ultrasound findings with patient. Questions answered today. Recommend consultation with endocrinology and order placed. Discussed option for chronic pelvic pain clinic and order placed for this as well. Patient not interested in hormonal treatment options at this time for irregular menses, acne, pelvic pain. RTO annual exams and PRN. Ayana Umana DO Medical Decision Making: Problems: Low: 2+ self-limited or minor problems Data: Unique test(s) ordered: 2 Medical Decision Making Level: 3 - Low documented in this encounterGreen Cross Hospital04-29-2022 Instructions* Patient Instructions* Ayana Umana MD - 01/03/2022 11:27 AM EDT Blood work on cycle day 3 documented in this encounterGreen Cross Hospital04-29-2022 History of Present illness Narrative* Ayana Umana MD - 01/03/2022 10:27 AM EDT Rhonda Cohen is a 16 year old female who presents for problem visit - chronic pelvic pain, vaginal discharge, DUB, dyspareunia. She is a new patient. HPI: Has chronic pelvic and abdominal pain. Has seen GI for this and had upper endoscopy and colonoscopy that she reports were unremarkable. Being treated for IBS. Has chronic nausea as well. Early satiety. The pelvic pain comes on randomly. Sometimes the pelvic pain lasts a few hours, other times it is a few minutes. She describes the pelvic pain as sharp. No urinary symptoms. Has vaginal discharge that has been chronic. Occasional vaginal pruritis and irritation. Typically has irregular but monthly menstrual cycles. Bleeding lasts 4-9 days. Bleeding is heavy. The pain is not cyclic or worsened with menses. Currently sexually active and 6 months ago. Using condoms for prevention. Family history of TIA's so she is not currently interested in hormonal contraception, and family history of endometriosis. Having dyspareunia and painful orgasms. Has been having constipationand diarrhea. Has always had bad acne that is difficult to treat. OB History No obstetric history on file. Channeler Outsole History LMP: 12/18/2021, Having periods Age at Menarche: Age at First : Age at Menopause: Channeler Outsole History Comments: Sexual Activity: Yes; No partner data on record Contraception: None PAST MEDICAL HISTORY Diagnosis Date Anxiety and depression History of IBS PAST SURGICAL HISTORY Procedure Laterality Date NONE FAMILY HISTORY Problem Relation Age of Onset Fibromyalgia Mother Cervical Cancer Mother other (diverticulitis) Mother Kidney Disease Father No Known Problems Sister Kidney stones Brother No Known Problems Brother No Known Problems Brother Bipolar disorder Maternal Grandmother Heart Maternal Grandfather No Known Problems Paternal Grandmother Heart Attack Paternal Grandfather Social History Tobacco Use Smoking status: Never Smoker Smokeless tobacco: Never Used Vaping Use Vaping Use: Never used Substance Use Topics Alcohol use: Never Drug use: Never Current Outpatient Medications Medication Sig ondansetron orally disintegrating (ZOFRAN ODT) 4 mg disintegrating tablet Take 1 tablet by mouth every 8 hours as needed for nausea/vomiting. peppermint oil (IBGARD) 90 mg CECX Take 1 capsule by mouth once daily as needed (INTESTINAL UPSET). sertraline (ZOLOFT) 25 mg tablet Take 25 mg by mouth once daily. pantoprazole DR (PROTONIX) 20 mg tablet Take 1 tablet by mouth DAILY (6 AM). No current facility-administered medications for this visit. Allergies As of Date: 01/03/2022 Allergen Noted Reaction LACTOSE 11/02/2021 Diarrhea PENICILLINS 01/08/2019 Anaphylaxis Fully Assessed 01/03/2022 REVIEW OF SYSTEMS Abdomen: Positive for early satiety, abdominal pain, nausea, vomiting, diarrhea, or constipation. Bladder: No dysuria. Expanded ROS: N/A Allergies and current medication updated:Yes EXAM: BP 80/50 Wt 118 lb 3.2 oz (53.6kg) LMP 12/18/2021 GENERAL: pleasant, female in no apparent distress HEENT: Normocephalic, atraumatic, mucus membranes moist and no lesions NECK: full range of motion DERMATOLOGY: Normal, without lesions, non-icteric and non-hirsute CHEST: Normal inspiratory effort ABDOMEN: soft and no masses, +diffuse tenderness, no rebounding, no guarding, no rigidity PELVIC: external genitalia normal, normal Bartholin's glands, urethra, [place]'s glands, no vulvar lesions, no cervical lesions, good vaginal support, physiologic discharge present, normal appearing perineal body and perianal region BIMANUAL: uterus normal size, shape and consistency, no adnexal masses and non-tender NEURO: exam grossly non-focal EXTREMITIES: normal ASSESSMENT AND PLAN: Encounter Diagnosis ICD-10-CM 1. Vaginal discharge N89.8 BACT/KANG VAG GRAM STAIN 2. Vaginal odor N89.8 BACT/KANG VAG GRAM STAIN 3. Vaginal itching N89.8 BACT/KANG VAG GRAM STAIN 4. Pelvic pain in female R10.2 US FEMALE PELVIS TRANSVAG PELVIC US WHI 5. Irregular menstrual cycle N92.6 TSH BLD HYDROXYPROGESTERO-17 [facility] BLD LUTEINIZING HORMONE ESTRADIOL-17B BLD DHEA-S BLD 6. Other acne L70.8 TSH BLD HYDROXYPROGESTERO-17 [facility] BLD LUTEINIZING HORMONE ESTRADIOL-17B BLD DHEA-S BLD Discussed possible etiologies for pelvic pain, discharge, and DUB. Check blood work and pelvic US as noted above. BV/yeast. RTO for follow up after ultrasound and blood work. Ayana Umana DO Medical Decision Making: Problems: Low: Stable chronic illness and 2+ self-limited or minor problems Moderate: 1+ chronic illnesses with change Data: Unique test(s) ordered: 3+ Medical Decision Making Level: 4 - Moderate [facility] Past illness Narrative* Problem Noted Date Resolved Date Nausea & vomiting 10/31/2021 11/03/2021 Last Assessment & Plan: zofran Diarrhea 10/31/2021 11/03/2021 Last Assessment & Plan: stable Abdominal pain 10/31/2021 11/03/2021 Last Assessment & Plan: stable Abdominal pain of unknown etiology 10/31/2021 11/01/2021 documented as of this encounter (statuses as of 01/03/2022) [facility] of Past illness Narrative* Problem Noted Date Resolved Date Nausea & vomiting 10/31/2021 11/03/2021 Last Assessment & Plan: zofran Diarrhea 10/31/2021 11/03/2021 Last Assessment & Plan: stable Abdominal pain 10/31/2021 11/03/2021 Last Assessment & Plan: stable Abdominal pain of unknown etiology 10/31/2021 11/01/2021 documented as of this encounter (statuses as of 01/31/2022) [place] [id number] History of Past illness Narrative* Problem Noted Date Resolved Date Nausea & vomiting 10/31/2021 11/03/2021 Last Assessment & Plan: zofran Diarrhea 10/31/2021 11/03/2021 Last Assessment & Plan: stable Abdominal pain 10/31/2021 11/03/2021 Last Assessment & Plan: stable Abdominal pain of unknown etiology 10/31/2021 11/01/2021 documented as of this encounter (statuses as of 02/20/2022) [facility] of Past illness Narrative* Problem Noted Date Resolved Date Nausea & vomiting 10/31/2021 11/03/2021 Last Assessment & Plan: zofran Diarrhea 10/31/2021 11/03/2021 Last Assessment & Plan: stable Abdominal pain 10/31/2021 11/03/2021 Last Assessment & Plan: stable Abdominal pain of unknown etiology 10/31/2021 11/01/2021 documented as of this encounter (statuses as of 05/01/2022) [facility] of Past illness Narrative* Problem Noted Date Resolved Date Nausea & vomiting 10/31/2021 11/03/2021 Last Assessment & Plan: zofran Diarrhea 10/31/2021 11/03/2021 Last Assessment & Plan: stable Abdominal pain 10/31/2021 11/03/2021 Last Assessment & Plan: stable Abdominal pain of unknown etiology 10/31/2021 11/01/2021 documented as of this encounter (statuses as of 05/05/2022) [facility] of Past illness Narrative* Problem Noted Date Resolved Date Nausea & vomiting 10/31/2021 11/03/2021 Last Assessment & Plan: zofran Diarrhea 10/31/2021 11/03/2021 Last Assessment & Plan: stable Abdominal pain 10/31/2021 11/03/2021 Last Assessment & Plan: stable Abdominal pain of unknown etiology 10/31/2021 11/01/2021 documented as of this encounter (statuses as of 05/16/2022) [facility] of Past illness Narrative* Problem Noted Date Resolved Date Nausea & vomiting 10/31/2021 11/03/2021 Last Assessment & Plan: zofran Diarrhea 10/31/2021 11/03/2021 Last Assessment & Plan: stable Abdominal pain 10/31/2021 11/03/2021 Last Assessment & Plan: stable Abdominal pain of unknown etiology 10/31/2021 11/01/2021 documented as of this encounter (statuses as of 06/16/2022) [address] History of Past illness Narrative* Problem Noted Date Resolved Date Nausea & vomiting 10/31/2021 11/03/2021 Last Assessment & Plan: zofran Diarrhea 10/31/2021 11/03/2021 Last Assessment & Plan: stable Abdominal pain 10/31/2021 11/03/2021 Last Assessment & Plan: stable Abdominal pain of unknown etiology 10/31/2021 11/01/2021 documented as of this encounter (statuses as of 10/17/2022) [address] History of Past illness Narrative* Problem Noted Date Diagnosed Date Resolved Date Nausea & vomiting 10/31/2021 11/03/2021 Last Assessment & Plan: zofran Diarrhea 10/31/2021 11/03/2021 Last Assessment & Plan: stable Abdominal pain 10/31/2021 11/03/2021 Last Assessment & Plan: stable Abdominal pain of unknown etiology 10/31/2021 11/01/2021 documented as of this encounter (statuses as of 04/29/2023) [address] History of Past illness Narrative* Problem Noted Date Diagnosed Date Resolved Date Abdominal pain of unknown etiology 10/31/2021 11/01/2021 documented as of this encounter (statuses as of 07/08/2023) [address] History of Past illness Narrative* Problem Noted Date Diagnosed Date Resolved Date Abdominal pain of unknown etiology 10/31/2021 11/01/2021 documented as of this encounter (statuses as of 08/14/2023) [address] History of Past illness Narrative* Problem Noted Date Diagnosed Date Resolved Date Abdominal pain of unknown etiology 10/31/2021 11/01/2021 documented as of this encounter (statuses as of 12/12/2023) [address]24[address] History of Past illness Narrative* Problem Noted Date Diagnosed Date Resolved Date Abdominal pain of unknown etiology 10/31/2021 11/01/2021 documented as of this encounter (statuses as of 12/17/2023) [address] History of Past illness Narrative* Problem Noted Date Diagnosed Date Resolved Date Abdominal pain of unknown etiology 10/31/2021 11/01/2021 documented as of this encounter (statuses as of 12/17/2023) [address] History of Past illness Narrative* Problem Noted Date Diagnosed Date Resolved Date Abdominal pain of unknown etiology 10/31/2021 11/01/2021 documented as of this encounter (statuses as of 12/27/2023) [facility]No [facility] information [facility]WC[facility] Work Phone: Evaluation note* Diagnosis Vaginal discharge- Primary Leukorrhea, not specified as infective Vaginal odor Unspecified symptom associated with female genital organs Vaginal itching Pruritus of genital organs Pelvic pain in female Unspecified symptom associated with female genital organs Irregular menstrual cycle Other acne [facility] Diagnosis Pelvic pain in female- Primary Unspecified symptom associated with female genital organs [facility] Diagnosis Other acne- Primary Vaginal discharge Leukorrhea, not specified as infective Irregular periods Irregular menstrual cycle Chronic pelvic pain in female Unspecified symptom associated with female genital organs Abnormal laboratory test result Other abnormal clinical finding Malaise and fatigue Other malaise and fatigue Muscle weakness Muscle weakness (generalized) Loss of appetite Anorexia [facility] Diagnosis Elevated 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- Primary Unspecified endocrine disorder Irregular menstrual cycle Hypotension, unspecified hypotension type Salt craving Other symptoms concerning nutrition, metabolism, and development [facility] encounter [facility] Diagnosis Left lower quadrant abdominal pain- Primary [facility]* Diagnosis Sore throat- Primary Acute pharyngitis [facility] Diagnosis Colitis- Primary Other and unspecified noninfectious gastroenteritis and colitis Adjustment disorder with mixed anxiety and depressed mood Hypokalemia Hypopotassemia [facility] Diagnosis Encounter for gynecological examination (general) (routine) without abnormal findings- Primary Pelvic pain in female Unspecified symptom associated with female genital organs [facility] Diagnosis Fatigue, unspecified type- Primary [facility] Diagnosis Pelvic pressure in female- Primary Other specified symptom associated with female genital organs Vaginal discharge Leukorrhea, not specified as infective Female dyspareunia Dyspareunia documented [facility] Diagnosis Female dyspareunia Dyspareunia Pelvic pressure in female Other specified symptom associated with female genital organs [facility] Diagnosis Abdominal bloating- Primary Flatulence, eructation, and gas pain Elevated fecal calprotectin Generalized abdominal pain Abdominal pain, generalized Nausea Nausea alone [facility] Diagnosis Viral URI with cough- Primary Acute upper respiratory infections of unspecified site [facility] Diagnosis Orthostatic lightheadedness- Primary Dizziness and giddiness Blurring of vision Other specified visual disturbances Disturbance of skin sensation Chronic migraine w/o aura w/o status migrainosus, not intractable Chronic migraine without aura, without mention of intractable migraine without mention of status migrainosus Positional headache Headache [facility]* Diagnosis Acute otitis media, left- Primary Unspecified otitis media Pharyngitis, unspecified etiology [facility]* Diagnosis Mast cell activation syndrome (HCC)- Primary Abdominal bloating Flatulence, eructation, and gas pain Left sided abdominal pain Abdominal pain, unspecified site Diarrhea, unspecified type Dermatitis, unspecified Chronic rhinitis documented in this encounter [facility] note* Diagnosis Blurring of vision- Primary Other specified visual disturbances Chronic migraine w/o aura w/o status migrainosus, not intractable Chronic migraine without aura, without mention of intractable migraine without mention of status migrainosus Regular astigmatism of both eyes Regular astigmatism [facility]* Diagnosis Disturbance of skin sensation- Primary [facility] Diagnosis Abdominal bloating Flatulence, eructation, and gas pain Elevated fecal calprotectin Generalized abdominal pain Abdominal pain, generalized Nausea Nausea alone documented in this encounter [facility] note* Diagnosis Abdominal bloating Flatulence, eructation, and gas pain Left sided abdominal pain Abdominal pain, unspecified site [facility]* Diagnosis Bloating- Primary Flatulence, eructation, and gas pain [facility] Diagnosis Irritable bowel syndrome with diarrhea- Primary Irritable bowel syndrome Small intestinal bacterial overgrowth Other specified disorder of intestines [facility]* Diagnosis Orthostatic lightheadedness Dizziness and giddiness Disturbance of skin sensation [facility] Diagnosis Orthostatic lightheadedness- Primary Dizziness and giddiness [facility] Diagnosis Vomiting, unspecified vomiting type, unspecified whether nausea present- Primary Dehydration Abdominal pain, unspecified abdominal location Adjustment disorder Unspecified adjustment reaction Abdominal pain of unknown etiology Abdominal pain, unspecified site Encounter for immunization Need for other specified prophylactic vaccination against single bacterial disease [facility] Diagnosis Vomiting, unspecified vomiting type, unspecified whether nausea present- Primary Dehydration Abdominal pain, unspecified abdominal location Adjustment disorder Unspecified adjustment reaction Abdominal pain of unknown etiology Abdominal pain, unspecified site Encounter for immunization- Primary Need for other specified prophylactic vaccination against single bacterial disease documented in this encounter [facility] note* Diagnosis Vomiting, unspecified vomiting type, unspecified whether nausea present- Primary Dehydration Abdominal pain, unspecified abdominal location Adjustment disorder Unspecified adjustment reaction Abdominal pain of unknown etiology Abdominal pain, unspecified site Noninfected skin tear of leg, right, initial encounter- Primary documented in this encounter [facility] note* Diagnosis Vomiting, unspecified vomiting type, unspecified whether nausea present- Primary Dehydration Abdominal pain, unspecified abdominal location Adjustment disorder Unspecified adjustment reaction Abdominal pain of unknown etiology Abdominal pain, unspecified site Dysuria- Primary Nausea Nausea alone documented in this encounter [facility] note* Diagnosis Vomiting, unspecified vomiting type, unspecified whether nausea present- Primary Dehydration Abdominal pain, unspecified abdominal location Adjustment disorder Unspecified adjustment reaction Abdominal pain of unknown etiology Abdominal pain, unspecified site Acute cystitis without hematuria- Primary Acute cystitis documented in this encounter [facility] note* Diagnosis Vomiting, unspecified vomiting type, unspecified whether nausea present- Primary Dehydration Abdominal pain, unspecified abdominal location Adjustment disorder Unspecified adjustment reaction Abdominal pain of unknown etiology Abdominal pain, unspecified site Abdominal pain, unspecified abdominal location- Primary Recurrent UTI (urinary tract infection) Urinary tract infection, site not specified documented in this encounter [facility] note* Diagnosis Vomiting, unspecified vomiting type, unspecified whether nausea present- Primary Dehydration Abdominal pain, unspecified abdominal location Adjustment disorder Unspecified adjustment reaction Abdominal pain of unknown etiology Abdominal pain, unspecified site of unknown anatomic location- Primary state, incidental documented in this encounter [facility] note* Diagnosis Vomiting, unspecified vomiting type, unspecified whether nausea present- Primary Dehydration Abdominal pain, unspecified abdominal location Adjustment disorder Unspecified adjustment reaction Abdominal pain of unknown etiology Abdominal pain, unspecified site of unknown anatomic location- Primary state, incidental [facility]* Diagnosis Vomiting, unspecified vomiting type, unspecified whether nausea present- Primary Dehydration Abdominal pain, unspecified abdominal location Adjustment disorder Unspecified adjustment reaction Abdominal pain of unknown etiology Abdominal pain, unspecified site with uncertain dates, antepartum- Primary state, incidental documented in this encounter [facility] note* Diagnosis Vomiting, unspecified vomiting type, unspecified whether nausea present- Primary Dehydration Abdominal pain, unspecified abdominal location Adjustment disorder Unspecified adjustment reaction Abdominal pain of unknown etiology Abdominal pain, unspecified site Abdominal pain in , first trimester- Primary Nausea and vomiting in Unspecified vomiting of , unspecified as to episode of care Confirm cardiac activity, ultrasound Encounter for routine screening for malformation using ultrasonics Visit for confirmation of test result with physical exam examination or test, unconfirmed documented in this encounter [facility] note* Diagnosis Vomiting, unspecified vomiting type, unspecified whether nausea present- Primary Dehydration Abdominal pain, unspecified abdominal location Adjustment disorder Unspecified adjustment reaction Abdominal pain of unknown etiology Abdominal pain, unspecified site with uncertain dates, antepartum- Primary state, incidental documented in this encounter [facility] note* Diagnosis Vomiting, unspecified vomiting type, unspecified whether nausea present- Primary Dehydration Abdominal pain, unspecified abdominal location Adjustment disorder Unspecified adjustment reaction Abdominal pain of unknown etiology Abdominal pain, unspecified site Encounter for care in first trimester of first - Primary with uncertain dates in first trimester Encounter for screening for malignant neoplasm of cervix Screening for malignant neoplasm of the cervix Screen for STD (sexually transmitted disease) Screening examination for venereal disease Supervision of high risk in second trimester Unspecified high-risk Type 1 diabetes mellitus affecting , antepartum 12 weeks gestation of state, incidental Penicillin allergy Personal history of allergy to penicillin Family history of severe allergy Family history of allergic disorders Encounter for supervision of normal first in first trimester Supervision of normal first Irritable bowel syndrome with both constipation and diarrhea Small intestinal bacterial overgrowth (SIBO) Lactose intolerance Intestinal disaccharidase deficiencies and disaccharide malabsorption Vaginal discharge Leukorrhea, not specified as infective documented in this encounter [facility] note* Diagnosis Vomiting, unspecified vomiting type, unspecified whether nausea present- Primary Dehydration Abdominal pain, unspecified abdominal location Adjustment disorder Unspecified adjustment reaction Abdominal pain of unknown etiology Abdominal pain, unspecified site Encounter for screening for malformation using ultrasound- Primary 12 weeks gestation of state, incidental [facility] Diagnosis Vomiting, unspecified vomiting type, unspecified whether nausea present- Primary Dehydration Abdominal pain, unspecified abdominal location Adjustment disorder Unspecified adjustment reaction Abdominal pain of unknown etiology Abdominal pain, unspecified site Encounter for supervision of normal first in second trimester- Primary Supervision of normal first 12 weeks gestation of state, incidental Anxiety Anxiety state, unspecified Nausea and vomiting, unspecified vomiting type Constipation, unspecified constipation type documented in this encounter [facility] note* Diagnosis Vomiting, unspecified vomiting type, unspecified whether nausea present- Primary Dehydration Abdominal pain, unspecified abdominal location Adjustment disorder Unspecified adjustment reaction Abdominal pain of unknown etiology Abdominal pain, unspecified site Urinary tract infection symptoms- Primary Other symptoms involving urinary system documented in this encounter [facility] note* Diagnosis Vomiting, unspecified vomiting type, unspecified whether nausea present- Primary Dehydration Abdominal pain, unspecified abdominal location Adjustment disorder Unspecified adjustment reaction Abdominal pain of unknown etiology Abdominal pain, unspecified site Encounter for anatomic survey- Primary documented in this encounter [facility] note* Diagnosis Vomiting, unspecified vomiting type, unspecified whether nausea present- Primary Dehydration Abdominal pain, unspecified abdominal location Adjustment disorder Unspecified adjustment reaction Abdominal pain of unknown etiology Abdominal pain, unspecified site Encounter for supervision of normal first in second trimester- Primary Supervision of normal first 16 weeks gestation of state, incidental Cramping affecting , antepartum Anxiety Anxiety state, unspecified documented in this encounter [facility] note* Diagnosis Vomiting, unspecified vomiting type, unspecified whether nausea present- Primary Dehydration Abdominal pain, unspecified abdominal location Adjustment disorder Unspecified adjustment reaction Abdominal pain of unknown etiology Abdominal pain, unspecified site 16 weeks gestation of - Primary state, incidental Encounter for supervision of normal first in second trimester Supervision of normal first Anxiety Anxiety state, unspecified Constipation, unspecified constipation type Heartburn during in second trimester Dizziness Dizziness and giddiness documented in this encounter [facility] note* Diagnosis Vomiting, unspecified vomiting type, unspecified whether nausea present- Primary Dehydration Abdominal pain, unspecified abdominal location Adjustment disorder Unspecified adjustment reaction Abdominal pain of unknown etiology Abdominal pain, unspecified site 19 weeks gestation of state, incidental Abdominal pain affecting Encounter for supervision of normal first in second trimester- Primary Supervision of normal first Anxiety Anxiety state, unspecified Heartburn during in second trimester 20 weeks gestation of state, incidental Pelvic cramping Unspecified symptom associated with female genital organs Round ligament pain Unspecified symptom associated with female genital organs documented in this encounter [facility] note* Diagnosis Vomiting, unspecified vomiting type, unspecified whether nausea present- Primary Dehydration Abdominal pain, unspecified abdominal location Adjustment disorder Unspecified adjustment reaction Abdominal pain of unknown etiology Abdominal pain, unspecified site 19 weeks gestation of state, incidental Abdominal pain affecting Encounter for anatomic survey- Primary Encounter for supervision of normal first in second trimester Supervision of normal first 12 weeks gestation of state, incidental documented in this encounter [facility] note* Diagnosis Vomiting, unspecified vomiting type, unspecified whether nausea present- Primary Dehydration Abdominal pain, unspecified abdominal location Adjustment disorder Unspecified adjustment reaction Abdominal pain of unknown etiology Abdominal pain, unspecified site 19 weeks gestation of ([facility]) state, incidental Abdominal pain affecting ([facility]) Encounter for supervision of normal first in second trimester ([facility])- Primary Supervision of normal first Abdominal pain in , second trimester ([facility]) Pelvic cramping Unspecified symptom associated with female genital organs 21 weeks gestation of ([facility]) state, incidental documented in this encounter [facility] note* Diagnosis Vomiting, unspecified vomiting type, unspecified whether nausea present- Primary Dehydration Abdominal pain, unspecified abdominal location Adjustment disorder Unspecified adjustment reaction Abdominal pain of unknown etiology Abdominal pain, unspecified site Abdominal pain affecting ([facility]) Encounter for supervision of normal first in first trimester ([facility])- Primary Supervision of normal first 24 weeks gestation of ([facility]) state, incidental Screening for diabetes mellitus Anxiety Anxiety state, unspecified Heartburn during in second trimester ([facility]) documented in this encounter [facility] note* Diagnosis Vomiting, unspecified vomiting type, unspecified whether nausea present- Primary Dehydration Abdominal pain, unspecified abdominal location Adjustment disorder Unspecified adjustment reaction Abdominal pain of unknown etiology Abdominal pain, unspecified site Abdominal pain affecting ([facility]) Nipple discharge- Primary Other sign and symptom in breast 28 weeks gestation of ([facility]) state, incidental Encounter for supervision of normal first in third trimester ([facility]) Supervision of normal first [facility] Diagnosis Vomiting, unspecified vomiting type, unspecified whether nausea present- Primary Dehydration Abdominal pain, unspecified abdominal location Adjustment disorder Unspecified adjustment reaction Abdominal pain of unknown etiology Abdominal pain, unspecified site Abdominal pain during in third trimester ([facility]) 29 weeks gestation of ([facility]) state, incidental Chest pain during ([facility]) Maternal iron deficiency anemia complicating , third trimester ([facility])- Primary documented in this encounter [facility] note* Diagnosis Vomiting, unspecified vomiting type, unspecified whether nausea present- Primary Dehydration Abdominal pain, unspecified abdominal location Adjustment disorder Unspecified adjustment reaction Abdominal pain of unknown etiology Abdominal pain, unspecified site Abdominal pain during in third trimester ([facility]) 29 weeks gestation of ([facility]) state, incidental Chest pain during ([facility]) Maternal iron deficiency anemia complicating , third trimester ([facility])- Primary [facility] Diagnosis Vomiting, unspecified vomiting type, unspecified whether nausea present- Primary Dehydration Abdominal pain, unspecified abdominal location Adjustment disorder Unspecified adjustment reaction Abdominal pain of unknown etiology Abdominal pain, unspecified site Abdominal pain during in third trimester ([facility]) 29 weeks gestation of ([facility]) state, incidental Chest pain during ([facility]) Maternal iron deficiency anemia complicating , third trimester ([facility])- Primary documented in this encounter [facility] note* Diagnosis Vomiting, unspecified vomiting type, unspecified whether nausea present- Primary Dehydration Abdominal pain, unspecified abdominal location Adjustment disorder Unspecified adjustment reaction Abdominal pain of unknown etiology Abdominal pain, unspecified site Abdominal pain during in third trimester ([facility]) Chest pain during ([facility]) Maternal iron deficiency anemia complicating , third trimester ([facility])- Primary documented in this encounter [facility] note* Diagnosis Vomiting, unspecified vomiting type, unspecified whether nausea present- Primary Dehydration Abdominal pain, unspecified abdominal location Adjustment disorder Unspecified adjustment reaction Abdominal pain of unknown etiology Abdominal pain, unspecified site Abdominal pain during in third trimester ([facility]) Chest pain during ([facility]) Supervision of high risk in third trimester ([facility])- Primary Unspecified high-risk 30 weeks gestation of ([facility]) state, incidental Anemia during in third trimester ([facility]) Decreased movements in third trimester, single or unspecified fetus ([facility]) Heartburn during in third trimester ([facility]) Vaginal itching Pruritus of genital organs Vaginal discharge Leukorrhea, not specified as infective [facility] Diagnosis Vomiting, unspecified vomiting type, unspecified whether nausea present- Primary Dehydration Abdominal pain, unspecified abdominal location Adjustment disorder Unspecified adjustment reaction Abdominal pain of unknown etiology Abdominal pain, unspecified site Abdominal pain during in third trimester ([facility]) Chest pain during ([facility]) Maternal iron deficiency anemia complicating , third trimester ([facility])- Primary documented in this encounter [facility] note* Diagnosis Vomiting, unspecified vomiting type, unspecified whether nausea present- Primary Dehydration Abdominal pain, unspecified abdominal location Adjustment disorder Unspecified adjustment reaction Abdominal pain of unknown etiology Abdominal pain, unspecified site Abdominal pain during in third trimester ([facility]) Chest pain during ([facility]) Maternal iron deficiency anemia complicating , third trimester ([facility])- Primary documented in this encounter [facility] note* Diagnosis Vomiting, unspecified vomiting type, unspecified whether nausea present- Primary Dehydration Abdominal pain, unspecified abdominal location Adjustment disorder Unspecified adjustment reaction Abdominal pain of unknown etiology Abdominal pain, unspecified site Abdominal pain during in third trimester ([facility]) Chest pain during ([facility]) Supervision of high risk in third trimester ([facility]) Unspecified high-risk 30 weeks gestation of ([facility]) state, incidental Anemia during in third trimester ([facility]) Decreased movements in third trimester, single or unspecified fetus ([facility]) documented in this encounter [facility] note* Diagnosis Vomiting, unspecified vomiting type, unspecified whether nausea present- Primary Dehydration Abdominal pain, unspecified abdominal location Adjustment disorder Unspecified adjustment reaction Abdominal pain of unknown etiology Abdominal pain, unspecified site Abdominal pain during in third trimester ([facility]) Chest pain during ([facility]) Encounter for supervision of high risk in third trimester, antepartum ([facility])- Primary 32 weeks gestation of ([facility]) state, incidental Anemia during in third trimester ([facility]) macrosomia during in third trimester, single or unspecified fetus ([facility]) Acne vulgaris Other acne documented in this encounter [facility] note* Diagnosis Vomiting, unspecified vomiting type, unspecified whether nausea present- Primary Dehydration Abdominal pain, unspecified abdominal location Adjustment disorder Unspecified adjustment reaction Abdominal pain of unknown etiology Abdominal pain, unspecified site Abdominal pain during in third trimester ([facility]) Chest pain during ([facility]) Encounter for supervision of high risk in third trimester, antepartum ([facility])- Primary Anemia during in third trimester ([facility]) macrosomia during in third trimester, single or unspecified fetus ([facility]) 34 weeks gestation of ([facility]) state, incidental documented in this encounter [facility] note* Diagnosis Vomiting, unspecified vomiting type, unspecified whether nausea present- Primary Dehydration Abdominal pain, unspecified abdominal location Adjustment disorder Unspecified adjustment reaction Abdominal pain of unknown etiology Abdominal pain, unspecified site Abdominal pain during in third trimester (HCC) Chest pain during (HCC) 35 weeks gestation of ([facility])- Primary state, incidental Encounter for supervision of high risk in third trimester, antepartum ([facility]) Musculoskeletal pain Mylagia and myositis, unspecified documented in this encounter [facility] note* Diagnosis Vomiting, unspecified vomiting type, unspecified whether nausea present- Primary Dehydration Abdominal pain, unspecified abdominal location Adjustment disorder Unspecified adjustment reaction Abdominal pain of unknown etiology Abdominal pain, unspecified site Abdominal pain during in third trimester (HCC) Chest pain during (HCC) Supervision of high risk in third trimester ([facility])- Primary Unspecified high-risk Encounter for supervision of high risk in third trimester, antepartum ([facility]) macrosomia during in third trimester, single or unspecified fetus ([facility]) Encounter for supervision of high risk in third trimester, antepartum ([facility])- Primary 36 weeks gestation of ([facility]) state, incidental Anemia during in third trimester ([facility]) Pain in left hip Pain in joint, pelvic region and thigh documented in this encounter [facility] note* Diagnosis Vomiting, unspecified vomiting type, unspecified whether nausea present- Primary Dehydration Abdominal pain, unspecified abdominal location Adjustment disorder Unspecified adjustment reaction Abdominal pain of unknown etiology Abdominal pain, unspecified site Abdominal pain during in third trimester (HCC) Chest pain during ([facility]) Encounter for supervision of high risk in third trimester, antepartum (HCC)- Primary 36 weeks gestation of ([facility]) state, incidental Anemia during in third trimester ([facility]) Pain in left hip Pain in joint, pelvic region and thigh * Assessment & Plan Note - Eduin Dominguez MD - 03/20/2025 11:24 AM EDT Associated Problem(s): Anemia during in third trimester ([facility]) Orders: URINE OB DIP B/O documented in this encounter [facility] for referral (narrative)* Diagnostic Procedure Only (Routine) - Authorized Specialty Diagnoses / Procedures Referred By Conttrenton t Referred To Contact [facility] Diagnoses Pelvic pain in female Procedures PELVIC US WHI US PELVIC NONOBSTETRIC REAL-TIME IMAGE COMPLETE Ayana Umana MD [address] [place] [place] [address] [facility] [address] [place] [address] Referral ID Status Reason Start Date Expiration Date Visits Requested Visits Authorized [id number] Authorized Auto-Generat ed Referral 01/03/2022 01/03/2023 1 1 * Diagnostic Procedure Only (Routine) - Pending Review Specialty Diagnoses / Procedures Referred By Contac t Referred To Contact [facility] Diagnoses Pelvic pain in female Procedures US FEMALE PELVIS TRANSVAG US TRANSVAGINAL Ayana Umana MD [address] [place] [place] [address] [facility] Referral ID Status Reason Start Date Expiration Date Visits Requested Visits Authorized [id number] Pending Review Auto-Generat ed Referral 01/03/2022 02/02/2023 1 1 [facility] for referral (narrative)* Diagnostic Procedure Only (Routine) - Authorized Specialty Diagnoses / Procedures Referred By Contac t Referred To Contact [facility] Diagnoses Pelvic pain in female Procedures US FEMALE PELVIS TRANSVAG US TRANSVAGINAL Petra Trejo APRN.CNP [address] [place] [address] [place] [address] Referral ID Status Reason Start Date Expiration Date Visits Requested Visits Authorized [id number] Authorized Auto-Generat ed Referral 08/14/2023 09/12/2024 1 1 [facility] for referral (narrative)* Diagnostic Procedure Only (Routine) - Closed Specialty Diagnoses / Procedures Referred By Contac t Referred To Contact [facility] Diagnoses Female dyspareunia Pelvic pressure in female Procedures US FEMALE PELVIS TRANSVAG US TRANSVAGINAL Maria Epps MD [address] [place] [address] [place] [address] Referral ID Status Reason Start Date Expiration Date V isits Requested Visits Authorized [id number] Closed Auto-Generate d Referral 12/16/2023 01/14/2025 1 1 [facility] for referral (narrative)* Diagnostic Procedure Only (Routine) - Open Specialty Diagnoses / Procedures Referred By Contac t Referred To Contact [facility] Diagnoses with uncertain dates, antepartum Procedures PELVIC US WHI US PELVIC NONOBSTETRIC REAL-TIME IMAGE COMPLETE Vera Hatch APRN.CNM [address] [place] [address] [place] [id number] Referral ID Status Reason Start Date Expiration Date V isits Requested Visits Authorized [id number] Open Auto-Generate d Referral 08/16/2024 08/16/2025 1 1 [facility] for referral (narrative)* Diagnostic Procedure Only (Routine) - Authorized Specialty Diagnoses / Procedures Referred By Contac t Referred To Contact [facility] Diagnoses Encounter for care in first trimester of first with uncertain dates in first trimester Encounter for screening for malignant neoplasm of cervix Screen for STD (sexually transmitted disease) Supervision of high risk in second trimester Type 1 diabetes mellitus affecting , antepartum 12 weeks gestation of Penicillin allergy Family history of severe allergy Encounter for supervision of normal first in first trimester Irritable bowel syndrome with both constipation and diarrhea Small intestinal bacterial overgrowth (SIBO) Lactose intolerance Procedures NUCHAL TRANSLUCENCY WHI US NUCHAL TRANSLUCENCY 1ST GESTATION Vera Hatch APRN.CNM [address] [place] [address] [facility] [address] [place] [address] Referral ID Status Reason Start Date Expiration Date Visits Requested Visits Authorized [id number] Authorized Auto-Generat ed Referral 09/07/2024 09/06/2025 20 20 [facility] Diagnostic Procedure Only (Routine) - Authorized Specialty Diagnoses / Procedures Referred By Contac t Referred To Contact [facility] Diagnoses Encounter for supervision of normal first in second trimester 12 weeks gestation of Procedures OBSTETRIC ULTRASOUND WHI US PREG UTERUS AFTER 1ST TRIMEST GESTATION Vera Hatch APRN.CNM [address] [place] [address] [facility] [address] [place] [address] Referral ID Status Reason Start Date Expiration Date Visits Requested Visits Authorized [id number] Authorized Auto-Generat ed Referral 10/03/2024 10/03/2025 1 1 [facility] for referral (narrative)No reason for referral information [facility]WC[facility] Work Phone: Reason for visit Narrative* Diagnostic Procedure Only (Routine) - Closed Specialty Diagnoses / Procedures Referred By Contac t Referred To Contact [facility] Diagnoses Female dyspareunia Pelvic pressure in female Procedures US FEMALE PELVIS TRANSVAG US TRANSVAGINAL Maria Epps MD [address] [place] [address] [place] [address] Referral ID Status Reason Start Date Expiration Date V isits Requested Visits Authorized [id number] Closed Auto-Generate d Referral 12/16/2023 01/14/2025 1 1 [facility] Diagnostic Procedure Only (Routine) - Closed Specialty Diagnoses / Procedures Referred By Contac t Referred To Contact [facility] Diagnoses with uncertain dates, antepartum Procedures PELVIC US WHI US PELVIC NONOBSTETRIC REAL-TIME IMAGE COMPLETE Vera Hatch APRN.CNM [address] [place] [address] [facility] [place] [address] Referral ID Status Reason Start Date Expiration Date V isits Requested Visits Authorized [id number] Closed Auto-Generate d Referral 08/17/2024 09/06/2024 1 1 [facility] Discharge Instructions * Instructions* Bernard Anaya, DO - 08/10/2020 Return if increasing pain shortness of breath or any concerns Not sure what caused your discomfort this evening. I do not believe this was an allergic reaction. However could be a side effect from the antibiotic or some other cause. Return if any difficulties or concerns * Attachments The following attachments cannot be sent through Care Everywhere. * Chest Pain: Musculoskeletal (Syriac) documented in this encounter Assessments Diagnosis Chest pain, unspecified type Medication side effect, initial encounter Summary Purpose Family History No Family History Records FoundNo Family History Records FoundNo Family History Records FoundNo Family History Records FoundNo Family History Records FoundNo Family History Records FoundNo Family History Records FoundNo Family History Records FoundNo Family History Records Found Advance Directives Advance Directive Response Recorded Date/ Time Living Will No December 30, 2021 6:04pm Power of Scout Leaser No December 30 6:04pm Documents on File Type Date Recorded Patient Inventory Planner Expl anation Advance Directive(s) 10/31/2021 3:03 PM Latest Code Status on File Code Status Date Activated Date Inactivated Comments Full Code 10/31/2021 11:41 PM 11/03/2021 8:53 PM Full Code Order Discussed With: Patient Documents on File Type Date Recorded Patient Inventory Planner Expl anation Advance Directive(s) 10/31/2021 3:03 PM Latest Code Status on File Code Status Date Activated Date Inactivated Comments Full Code 10/31/2021 11:41 PM 11/03/2021 8:53 PM Advance Directive Response Recorded Date/ Time Living Will No May 27, 2022 12:02pm Power of Scout Leaser No May 12:02pm Latest Code Status on File Code Status Date Activated Date Inactivated Comments Full Code 10/31/2021 11:41 PM 11/03/2021 8:53 PM Question Answer Comments Full Code Order Discussed With: Patient Latest Code Status on File Code Status Date Activated Date Inactivated Comments Full Code 07/03/2023 12:52 PM 07/06/2023 5:49 PM Question Answer Comments Full Code Order Discussed With: Patient Code Status History Code Status Date Activated Date Inactivated Comments Full Code 10/31/2021 11:41 PM 11/03/2021 8:53 PM Question Answer Comments Full Code Order Discussed With: Patient Latest Code Status on File Code Status Date Activated Date Inactivated Comments Full Code 07/03/2023 12:52 PM 07/06/2023 5:49 PM Question Answer Comments Full Code Order Discussed With: Patient Code Status History Code Status Date Activated Date Inactivated Comments Full Code 10/31/2021 11:41 PM 11/03/2021 8:53 PM Question Answer Comments Full Code Order Discussed With: Patient Date Activated Date Inactivated Comments 07/03/2023 12:52 PM 07/06/2023 5:49 PM Question Answer Comments Full Code Order Discussed With: Patient Date Activated Date Inactivated Comments 10/31/2021 11:41 PM 11/03/2021 8:53 PM Question Answer Comments Full Code Order Discussed With: Patient Date Activated Date Inactivated Comments 07/03/2023 12:52 PM 07/06/2023 5:49 PM Question Answer Comments Full Code Order Discussed With: Patient Date Activated Date Inactivated Comments 10/31/2021 11:41 PM 11/03/2021 8:53 PM Question Answer Comments Full Code Order Discussed With: Patient Advance Directive Response Recorded Date/ Time Living Will No December 05, 2024 11:22am Do you have a Healthcare Power of Scout Leaser? No December 05, 2024 11:22am Chief Complaint and Reason for Visit Chief Complaint ABD PAIN Chief Complaint Admit Date ABD PAIN December 05, 2024 10: 31am Reason for Referral Specialty Diagnoses / Procedures Referred By Jabier t Referred To Contact Endocrinology Diagnoses Abnormal laboratory test result Malaise and fatigue Muscle weakness Loss of appetite Procedures CONSULT TO ENDOCRINOLOGY OFFICE/OUTPATIENT [facility] 60-74 MINUTES Ayana Umana MD [address] [place] [address] Referral ID Status Reason Start Date Expiration Date Visits Requested Visits Authorized [id number] Pending Review PCP Requested Referral 02/19/2022 02/19/2023 1 1 Specialty Diagnoses / Procedures Referred By Contac t Referred To Contact Diagnoses Chronic pelvic pain in female Procedures CONSULT TO SUSTAINABILITY SPECIALIST PELVIC PAIN OFFICE/OUTPATIENT [facility] 60-74 MINUTES Ayana Umana MD [address] [place] [address] Referral ID Status Reason Start Date Expiration Date Visits Requested Visits Authorized [id number] Pending Review PCP Requested Referral Auto-Generate d Referral 02/19/2022 02/19/2023 1 1 Specialty Diagnoses / Procedures Referred By Contac t Referred To Contact [facility] Diagnoses Abdominal bloating Elevated fecal calprotectin Generalized abdominal pain Nausea Procedures MRI PEL ENTEROG WO/W IVCON MRI PELVIS W/O & W/CONTRAST MATERIAL Claus Taylor, CLOTH COLORS EXAMINER.BOOKING SUPERVISOR [address] [place] [address] [facility] Referral ID Status Reason Start Date Expiration Date Visits Requested Visits Authorized [id number] Authorized Auto-Generat ed Referral 12/24/2023 01/22/2025 1 1 Specialty Diagnoses / Procedures Referred By Contac t Referred To Contact [facility] IMAGING Diagnoses Abdominal bloating Elevated fecal calprotectin Generalized abdominal pain Nausea Procedures MRI ABD ENTEROG WO/W IVCON MRI ABDOMEN W/O & W/CONTRAST MATERIAL MRI PELVIS W/O & W/CONTRAST MATERIAL Claus Taylor, CLOTH COLORS EXAMINER.BOOKING SUPERVISOR [address] [place] [address] Mr Imaging [facility] Referral ID Status Reason Start Date Expiration Date Visits Requested Visits Authorized [id number] Authorized Auto-Generat ed Referral 12/24/2023 01/22/2025 1 1 Specialty Diagnoses / Procedures Referred By Contac t Referred To Contact [facility] IM[facility] Diagnoses Chronic migraine w/o aura w/o status migrainosus, not intractable Positional headache Procedures MRV BRAIN WO/W IVCON MRA; HEAD W & WO CONTRAST Celia Boogie PA-C [address] [place] [address] [place] [address] Referral ID Status Reason Start Date Expiration Date Visits Requested Visits Authorized [id number] Pending Review Auto-Generat ed Referral 01/15/2024 02/13/2025 1 1 Specialty Diagnoses / Procedures Referred By Contac t Referred To Contact [facility] IMAGING Diagnoses Chronic migraine w/o aura w/o status migrainosus, not intractable Positional headache Procedures MRI BRAIN WO/W IVCON MRI BRAIN BRAIN STEM W/O W/CONTRAST MATERIAL Celia Boogie PA-C [address] [phone] Mr Imaging [place] [address] Referral ID Status Reason Start Date Expiration Date Visits Requested Visits Authorized [id number] Pending Review Auto-Generat ed Referral 01/15/2024 02/13/2025 1 1 Specialty Diagnoses / Procedures Referred By Contac t Referred To Contact Ophthalmology Diagnoses Orthostatic lightheadedness Blurring of vision Disturbance of skin sensation Chronic migraine w/o aura w/o status migrainosus, not intractable Procedures CONSULT TO OPHTHALMOLOGY OFFICE/OUTPATIENT [facility] MDM 60 MINUTES Celia Boogie PA-C [address] [place] [address] Referral ID Status Reason Start Date Expiration Date Visits Requested Visits Authorized [id number] Authorized PCP Requested Referral 01/15/2024 01/14/2025 1 1 Additional Source Comments Reason for Visit (unrecogniz ed section and content) Reason Comments Allergic Reaction mother states allerg ic reaction to Clindamycin, pt took this AM and again at 1919 Reason Comments Pelvic Pain Reason Comments 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 Reason Comments Follow Up discuss u/s results Reason Comments Consult endo for possible PCOS [facility] Specialty Diagnoses / Procedures Referred By Contac t Referred To Contact Endocrinology Diagnoses Abnormal laboratory test result Malaise and fatigue Muscle weakness Loss of appetite Procedures CONSULT TO ENDOCRINOLOGY OFFICE/OUTPATIENT NEW [facility] 60-74 MINUTES Ayana Umana MD [address] [place] [address] Referral ID Status Reason Start Date Expiration Date Visits Requested Visits Authorized [id number] Pending Review PCP Requested Referral 02/19/2022 02/19/2023 1 1 Reason Comments Viral Syndrome Sore throat, trouble swallowing. Started 3-4 days ago Reason Comments Hospital F/U Abdominal Pain,Vomit ing Reason Comments Yearly Exam Reason Comments Viral Syndrome Is having mucus in h er BM, also concerned she does not have flu, diarrhea pain nausea. Reason Comments Pelvic Pain Reason Comments Established Patient Abdominal Pain lumps on torso Reason Comments Cough Cough, sore throat, sniffles, bilateral ear pain mainly left, started last Thursday, has taken benadryl and claritin, pt feels hot, Reason Comments New Patient Specialty Diagnoses / Procedures Referred By Contac t Referred To Contact Neurology Diagnoses Abdominal bloating Left sided abdominal pain Procedures CONSULT TO NEUROLOGY OFFICE/OUTPATIENT NEW HIGH MDM 60 MINUTES BrandonClaus dillard, CLOTH COLORS EXAMINER.BOOKING SUPERVISOR [address] [place] [address] Referral ID Status Reason Start Date Expiration Date V isits Requested Visits Authorized [id number] Closed PCP Requested Referral 09/24/2023 09/23/2024 1 1 Reason Comments Sore Throat Left side sore throa t and ear pain Reason Comments New Specialty Diagnoses / Procedures Referred By Contac t Referred To Contact Allergy Diagnoses Abdominal bloating Left sided abdominal pain Procedures CONSULT TO ALLERGY/IMMUNOLOGY OFFICE/OUTPATIENT NEW HIGH MDM 60 MINUTES Claus Taylor, CLOTH COLORS EXAMINER.BOOKING SUPERVISOR [address] [place] [address] Referral ID Status Reason Start Date Expiration Date V isits Requested Visits Authorized [id number] Closed PCP Requested Referral 09/24/2023 09/23/2024 1 1 Reason Comments Blurred Vision Both Eyes Headaches Specialty Diagnoses / Procedures Referred By Contac t Referred To Contact Ophthalmology Diagnoses Orthostatic lightheadedness Blurring of vision Disturbance of skin sensation Chronic migraine w/o aura w/o status migrainosus, not intractable Procedures CONSULT TO OPHTHALMOLOGY OFFICE/OUTPATIENT NEW HIGH MDM 60 MINUTES Celia Boogie PA-C [address] [place] [address] Referral ID Status Reason Start Date Expiration Date V isits Requested Visits Authorized [id number] Closed PCP Requested Referral 01/15/2024 01/14/2025 1 1 Reason Comments Radiology MRI Specialty Diagnoses / Procedures Referred By Contac t Referred To Contact MR IMAGING Diagnoses Abdominal bloating Elevated fecal calprotectin Generalized abdominal pain Nausea Procedures MRI PEL ENTEROG WO/W IVCON MRI PELVIS W/O & W/CONTRAST MATERIAL Brandon, Claus, CLOTH COLORS EXAMINER.BOOKING SUPERVISOR [address] [place] [address] [place] [address] Referral ID Status Reason Start Date Expiration Date V isits Requested Visits Authorized [id number] Closed Auto-Generate d Referral 12/24/2023 01/22/2025 1 1 Specialty Diagnoses / Procedures Referred By Contac t Referred To Contact MR IMAGING Diagnoses Abdominal bloating Elevated fecal calprotectin Generalized abdominal pain Nausea Procedures MRI PEL ENTEROG WO/W IVCON MRI PELVIS W/O & W/CONTRAST MATERIAL BrandonClaus dillard, CLOTH COLORS EXAMINER.BOOKING SUPERVISOR [address] [place] [address] [place] [address] Reason Comments Breath Hydrogen Test Specialty Diagnoses / Procedures Referred By Contac t Referred To Contact [facility] Diagnoses Abdominal bloating Left sided abdominal pain Procedures BREATH TEST GLUCOSE BREATH HYDROGEN/METHANE TEST Claus Taylor, CLOTH COLORS EXAMINER.BOOKING SUPERVISOR [address] [place] [address] [facility] [address] [place] [address] Referral ID Status Reason Start Date Expiration Date V isits Requested Visits Authorized [id number] Closed Auto-Generate d Referral 09/24/2023 09/24/2024 1 1 Reason Comments Gas Reason Comments Medication Authorization Xifaxan 550mg Reason Comments Procedure Reason Comments Orders Reason Comments Immunizations tdap Reason Comments Derm Problem skin tear Reason Comments UTI Symptoms started tod ay pelvic pain frequency and pain during and after urinating. Vision was a little blurry due to hitting her head in the cooler. Reason Comments UTI Pt is here for a UTI , pt states that she was tested on 07/27 and supposedly came back neg, pt is asking to be swabbed for BV and for flu, Reason Comments PEAC Reason Comments Abdominal Pain Reason Comments PEAC PUL Reason Comments Follow Up Reason Comments Patient Question Reason Comments Results Reason Comments Appointment Reason Comments early ob Reason Comments Initial OB Visit Reason Comments US Specialty Diagnoses / Procedures Referred By Contac t Referred To Contact [facility] Diagnoses Encounter for care in first trimester of first with uncertain dates in first trimester Encounter for screening for malignant neoplasm of cervix Screen for STD (sexually transmitted disease) Supervision of high risk in second trimester Type 1 diabetes mellitus affecting , antepartum 12 weeks gestation of Penicillin allergy Family history of severe allergy Encounter for supervision of normal first in first trimester Irritable bowel syndrome with both constipation and diarrhea Small intestinal bacterial overgrowth (SIBO) Lactose intolerance Procedures NUCHAL TRANSLUCENCY WHI US NUCHAL TRANSLUCENCY 1ST GESTATION Vera Hatch APRN.CNM [address] [place] [address] [address] Referral ID Status Reason Start Date Expiration Date Visits Requested Visits Authorized [id number] Authorized Auto-Generat ed Referral 09/07/2024 09/06/2025 20 20 Reason Onset Date Comments Care 10/03/2024 Reason Comments Viral Syndrome Bladder hurts, has b een a week Reason Onset Date Comments Care 10/28/2024 Reason Onset Date Comments Care 11/28/2024 Specialty Diagnoses / Procedures Referred By Contac t Referred To Contact [facility] Diagnoses Encounter for supervision of normal first in second trimester 12 weeks gestation of Procedures OBSTETRIC ULTRASOUND WHI US PREG UTERUS AFTER 1ST TRIMEST GESTATION Vera Hatch APRN.CNM [address] [place] [address] Phone: tel: fax: [address] [address] Referral ID Status Reason Start Date Expiration Date V isits Requested Visits Authorized [id number] Closed Auto-Generate d Referral 10/03/2024 10/03/2025 1 1 Reason Onset Date Comments Care 12/05/2024 Reason Comments ED Follow-up [facility] Reason Onset Date Comments Care 12/28/2024 Reason Comments breast discharge Reason Comments Blood Management Reason Comments Hematology Reason Comments Non-Chemotherapy Treatment Specialty Diagnoses / Procedures Referred By Contac t Referred To Contact Diagnoses Maternal iron deficiency anemia complicating , third trimester (HCC) Procedures IRON SUCROSE INJECTION PER 1 MG Becky Rees PA-C [address] [place] [address] Phone: tel: fax: Becky Rees PA-C [address] [place] [address] Phone: tel: fax: Referral ID Status Reason Start Date Expiration Date V isits Requested Visits Authorized [id number] Authorized 01/31/2025 05/01/2025 1 99 Reason Onset Date Comments Care 02/08/2025 Referral ID Status Reason Start Date Expiration Date Visits Re quested Visits Authorized [id number] Closed 01/31/2025 05/01/2025 1 99 Specialty Diagnoses / Procedures Referred By Contac t Referred To Contact [facility] Diagnoses Supervision of high risk in third trimester (HCC) 30 weeks gestation of (HCC) Anemia during in third trimester (HCC) Decreased movements in third trimester, single or unspecified fetus (HCC) Procedures OBSTETRIC ULTRASOUND WHI US PREG UTERUS AFTER 1ST TRIMEST GESTATION Shira Gloria APRN.BOOKING SUPERVISOR [address] [place] [address] Phone: tel: fax: [facility] [address] [place] [address] Referral ID Status Reason Start Date Expiration Date V isits Requested Visits Authorized [id number] Closed Auto-Generate d Referral 02/08/2025 02/08/2026 1 1 Reason Onset Date Comments Care 02/20/2025 Reason Onset Date Comments Care 03/06/2025 Reason Onset Date Comments Care 03/14/2025 Reason Comments OB rib pain, edema in feet Specialty Diagnoses / Procedures Referred By Contac t Referred To Contact [facility] Diagnoses Encounter for supervision of high risk in third trimester, antepartum (HCC) macrosomia during in third trimester, single or unspecified fetus (HCC) Procedures OBSTETRIC ULTRASOUND WHI US PREG UTERUS AFTER 1ST TRIMEST GESTATION Shira Gloria APRN.BOOKING SUPERVISOR [address] [place] [address] Phone: tel: fax: [facility] [address] [place] [address] Referral ID Status Reason Start Date Expiration Date V isits Requested Visits Authorized [id number] Closed Auto-Generate d Referral 02/20/2025 02/20/2026 1 1 Reason Onset Date Comments Care 03/20/2025 Reason Comments Mucous Plug INFORMATION SOURCE (unrecogn ized section and content) DATE CREATED AUTHOR 08/15/2020 [facility] ([place]) DATE CREATED AUTHOR AUTHOR'S ORGANIZ ATION 08/16/2020 [facility] DATE CREATED AUTHOR AUTHOR'S ORGANIZ ATION 11/13/2021 [facility] DATE CREATED AUTHOR AUTHOR'S ORGANIZ ATION 01/29/2024 [facility] DATE CREATED AUTHOR AUTHOR'S ORGANIZ ATION 08/12/2024 [facility] DATE CREATED AUTHOR AUTHOR'S ORGANIZ ATION 08/21/2024 [facility] DATE CREATED AUTHOR AUTHOR'S ORGANIZ ATION 02/03/2025 [facility] DATE CREATED AUTHOR AUTHOR'S ORGANIZ ATION 02/13/2025 [facility] DATE CREATED AUTHOR AUTHOR'S ORGANIZ ATION 03/23/2025 [facility] Goals (unrecognized section and content) Goals may be documented in a n alternate sectionGoals may be documented in an alternate sectionGoals may be documented in an alternate section Source Comments (unrecognize d section and content) In the event this informatio n is protected by the Federal Confidentiality of Alcohol and Drug Abuse Patient Records regulations: The Federal rules restrict any use of the information to criminally investigate or prosecute any alcohol or drug abuse patient.[facility] the event this information is protected by the Federal Confidentiality of Alcohol and Drug Abuse Patient Records regulations: The Federal rules restrict any use of the information to criminally investigate or prosecute any alcohol or drug abuse patient.[facility] HospitalIn the event this information is protected by the Federal Confidentiality of Alcohol and Drug Abuse Patient Records regulations: The Federal rules restrict any use of the information to criminally investigate or prosecute any alcohol or drug abuse patient.[facility] the event this information is protected by the Federal Confidentiality of Alcohol and Drug Abuse Patient Records regulations: The Federal rules restrict any use of the information to criminally investigate or prosecute any alcohol or drug abuse patient.[facility] HospitalIn the event this information is protected by the Federal Confidentiality of Alcohol and Drug Abuse Patient Records regulations: The Federal rules restrict any use of the information to criminally investigate or prosecute any alcohol or drug abuse patient.[facility] HospitalIn the event this information is protected by the Federal Confidentiality of Alcohol and Drug Abuse Patient Records regulations: The Federal rules restrict any use of the information to criminally investigate or prosecute any alcohol or drug abuse patient.[facility] HospitalIn the event this information is protected by the Federal Confidentiality of Alcohol and Drug Abuse Patient Records regulations: The Federal rules restrict any use of the information to criminally investigate or prosecute any alcohol or drug abuse patient.[facility] HospitalIn the event this information is protected by the Federal Confidentiality of Alcohol and Drug Abuse Patient Records regulations: The Federal rules restrict any use of the information to criminally investigate or prosecute any alcohol or drug abuse patient.[facility] HospitalIn the event this information is protected by the Federal Confidentiality of Alcohol and Drug Abuse Patient Records regulations: The Federal rules restrict any use of the information to criminally investigate or prosecute any alcohol or drug abuse patient.[facility] HospitalIn the event this information is protected by the Federal Confidentiality of Alcohol and Drug Abuse Patient Records regulations: The Federal rules restrict any use of the information to criminally investigate or prosecute any alcohol or drug abuse patient.[facility] HospitalIn the event this information is protected by the Federal Confidentiality of Alcohol and Drug Abuse Patient Records regulations: The Federal rules restrict any use of the information to criminally investigate or prosecute any alcohol or drug abuse patient.[facility] HospitalIn the event this information is protected by the Federal Confidentiality of Alcohol and Drug Abuse Patient Records regulations: The Federal rules restrict any use of the information to criminally investigate or prosecute any alcohol or drug abuse patient.[facility] HospitalIn the event this information is protected by the Federal Confidentiality of Alcohol and Drug Abuse Patient Records regulations: The Federal rules restrict any use of the information to criminally investigate or prosecute any alcohol or drug abuse patient.[facility] HospitalIn the event this information is protected by the Federal Confidentiality of Alcohol and Drug Abuse Patient Records regulations: The Federal rules restrict any use of the information to criminally investigate or prosecute any alcohol or drug abuse patient.[facility] HospitalIn the event this information is protected by the Federal Confidentiality of Alcohol and Drug Abuse Patient Records regulations: The Federal rules restrict any use of the information to criminally investigate or prosecute any alcohol or drug abuse patient.[facility] HospitalIn the event this information is protected by the Federal Confidentiality of Alcohol and Drug Abuse Patient Records regulations: The Federal rules restrict any use of the information to criminally investigate or prosecute any alcohol or drug abuse patient.[facility] HospitalIn the event this information is protected by the Federal Confidentiality of Alcohol and Drug Abuse Patient Records regulations: The Federal rules restrict any use of the information to criminally investigate or prosecute any alcohol or drug abuse patient.[facility] HospitalIn the event this information is protected by the Federal Confidentiality of Alcohol and Drug Abuse Patient Records regulations: The Federal rules restrict any use of the information to criminally investigate or prosecute any alcohol or drug abuse patient.[facility] HospitalIn the event this information is protected by the Federal Confidentiality of Alcohol and Drug Abuse Patient Records regulations: The Federal rules restrict any use of the information to criminally investigate or prosecute any alcohol or drug abuse patient.[facility] HospitalIn the event this information is protected by the Federal Confidentiality of Alcohol and Drug Abuse Patient Records regulations: The Federal rules restrict any use of the information to criminally investigate or prosecute any alcohol or drug abuse patient.[facility] HospitalIn the event this information is protected by the Federal Confidentiality of Alcohol and Drug Abuse Patient Records regulations: The Federal rules restrict any use of the information to criminally investigate or prosecute any alcohol or drug abuse patient.[facility] HospitalIn the event this information is protected by the Federal Confidentiality of Alcohol and Drug Abuse Patient Records regulations: The Federal rules restrict any use of the information to criminally investigate or prosecute any alcohol or drug abuse patient.[facility] HospitalIn the event this information is protected by the Federal Confidentiality of Alcohol and Drug Abuse Patient Records regulations: The Federal rules restrict any use of the information to criminally investigate or prosecute any alcohol or drug abuse patient.[facility] HospitalIn the event this information is protected by the Federal Confidentiality of Alcohol and Drug Abuse Patient Records regulations: The Federal rules restrict any use of the information to criminally investigate or prosecute any alcohol or drug abuse patient.[facility] HospitalIn the event this information is protected by the Federal Confidentiality of Alcohol and Drug Abuse Patient Records regulations: The Federal rules restrict any use of the information to criminally investigate or prosecute any alcohol or drug abuse patient.[facility] HospitalIn the event this information is protected by the Federal Confidentiality of Alcohol and Drug Abuse Patient Records regulations: The Federal rules restrict any use of the information to criminally investigate or prosecute any alcohol or drug abuse patient.[facility] HospitalIn the event this information is protected by the Federal Confidentiality of Alcohol and Drug Abuse Patient Records regulations: The Federal rules restrict any use of the information to criminally investigate or prosecute any alcohol or drug abuse patient.[facility] HospitalIn the event this information is protected by the Federal Confidentiality of Alcohol and Drug Abuse Patient Records regulations: The Federal rules restrict any use of the information to criminally investigate or prosecute any alcohol or drug abuse patient.[facility] HospitalIn the event this information is protected by the Federal Confidentiality of Alcohol and Drug Abuse Patient Records regulations: The Federal rules restrict any use of the information to criminally investigate or prosecute any alcohol or drug abuse patient.[facility] HospitalIn the event this information is protected by the Federal Confidentiality of Alcohol and Drug Abuse Patient Records regulations: The Federal rules restrict any use of the information to criminally investigate or prosecute any alcohol or drug abuse patient.[facility] HospitalIn the event this information is protected by the Federal Confidentiality of Alcohol and Drug Abuse Patient Records regulations: The Federal rules restrict any use of the information to criminally investigate or prosecute any alcohol or drug abuse patient.[facility] HospitalIn the event this information is protected by the Federal Confidentiality of Alcohol and Drug Abuse Patient Records regulations: The Federal rules restrict any use of the information to criminally investigate or prosecute any alcohol or drug abuse patient.[facility] HospitalIn the event this information is protected by the Federal Confidentiality of Alcohol and Drug Abuse Patient Records regulations: The Federal rules restrict any use of the information to criminally investigate or prosecute any alcohol or drug abuse patient.[facility] HospitalIn the event this information is protected by the Federal Confidentiality of Alcohol and Drug Abuse Patient Records regulations: The Federal rules restrict any use of the information to criminally investigate or prosecute any alcohol or drug abuse patient.[facility] HospitalIn the event this information is protected by the Federal Confidentiality of Alcohol and Drug Abuse Patient Records regulations: The Federal rules restrict any use of the information to criminally investigate or prosecute any alcohol or drug abuse patient.[facility] HospitalIn the event this information is protected by the Federal Confidentiality of Alcohol and Drug Abuse Patient Records regulations: The Federal rules restrict any use of the information to criminally investigate or prosecute any alcohol or drug abuse patient.[facility] HospitalIn the event this information is protected by the Federal Confidentiality of Alcohol and Drug Abuse Patient Records regulations: The Federal rules restrict any use of the information to criminally investigate or prosecute any alcohol or drug abuse patient.[facility] HospitalIn the event this information is protected by the Federal Confidentiality of Alcohol and Drug Abuse Patient Records regulations: The Federal rules restrict any use of the information to criminally investigate or prosecute any alcohol or drug abuse patient.[facility] HospitalIn the event this information is protected by the Federal Confidentiality of Alcohol and Drug Abuse Patient Records regulations: The Federal rules restrict any use of the information to criminally investigate or prosecute any alcohol or drug abuse patient.[facility] HospitalIn the event this information is protected by the Federal Confidentiality of Alcohol and Drug Abuse Patient Records regulations: The Federal rules restrict any use of the information to criminally investigate or prosecute any alcohol or drug abuse patient.[facility] HospitalIn the event this information is protected by the Federal Confidentiality of Alcohol and Drug Abuse Patient Records regulations: The Federal rules restrict any use of the information to criminally investigate or prosecute any alcohol or drug abuse patient.[facility] HospitalIn the event this information is protected by the Federal Confidentiality of Alcohol and Drug Abuse Patient Records regulations: The Federal rules restrict any use of the information to criminally investigate or prosecute any alcohol or drug abuse patient.[facility] HospitalIn the event this information is protected by the Federal Confidentiality of Alcohol and Drug Abuse Patient Records regulations: The Federal rules restrict any use of the information to criminally investigate or prosecute any alcohol or drug abuse patient.[facility] HospitalIn the event this information is protected by the Federal Confidentiality of Alcohol and Drug Abuse Patient Records regulations: The Federal rules restrict any use of the information to criminally investigate or prosecute any alcohol or drug abuse patient.[facility] HospitalIn the event this information is protected by the Federal Confidentiality of Alcohol and Drug Abuse Patient Records regulations: The Federal rules restrict any use of the information to criminally investigate or prosecute any alcohol or drug abuse patient.[facility] HospitalIn the event this information is protected by the Federal Confidentiality of Alcohol and Drug Abuse Patient Records regulations: The Federal rules restrict any use of the information to criminally investigate or prosecute any alcohol or drug abuse patient.[facility] HospitalIn the event this information is protected by the Federal Confidentiality of Alcohol and Drug Abuse Patient Records regulations: The Federal rules restrict any use of the information to criminally investigate or prosecute any alcohol or drug abuse patient.[facility] HospitalIn the event this information is protected by the Federal Confidentiality of Alcohol and Drug Abuse Patient Records regulations: The Federal rules restrict any use of the information to criminally investigate or prosecute any alcohol or drug abuse patient.[facility] HospitalIn the event this information is protected by the Federal Confidentiality of Alcohol and Drug Abuse Patient Records regulations: The Federal rules restrict any use of the information to criminally investigate or prosecute any alcohol or drug abuse patient.[facility] HospitalIn the event this information is protected by the Federal Confidentiality of Alcohol and Drug Abuse Patient Records regulations: The Federal rules restrict any use of the information to criminally investigate or prosecute any alcohol or drug abuse patient.[facility] HospitalIn the event this information is protected by the Federal Confidentiality of Alcohol and Drug Abuse Patient Records regulations: The Federal rules restrict any use of the information to criminally investigate or prosecute any alcohol or drug abuse patient.[facility] HospitalIn the event this information is protected by the Federal Confidentiality of Alcohol and Drug Abuse Patient Records regulations: The Federal rules restrict any use of the information to criminally investigate or prosecute any alcohol or drug abuse patient.[facility] HospitalIn the event this information is protected by the Federal Confidentiality of Alcohol and Drug Abuse Patient Records regulations: The Federal rules restrict any use of the information to criminally investigate or prosecute any alcohol or drug abuse patient.[facility] HospitalIn the event this information is protected by the Federal Confidentiality of Alcohol and Drug Abuse Patient Records regulations: The Federal rules restrict any use of the information to criminally investigate or prosecute any alcohol or drug abuse patient.[facility] HospitalIn the event this information is protected by the Federal Confidentiality of Alcohol and Drug Abuse Patient Records regulations: The Federal rules restrict any use of the information to criminally investigate or prosecute any alcohol or drug abuse patient.[facility] HospitalIn the event this information is protected by the Federal Confidentiality of Alcohol and Drug Abuse Patient Records regulations: The Federal rules restrict any use of the information to criminally investigate or prosecute any alcohol or drug abuse patient.[facility] HospitalIn the event this information is protected by the Federal Confidentiality of Alcohol and Drug Abuse Patient Records regulations: The Federal rules restrict any use of the information to criminally investigate or prosecute any alcohol or drug abuse patient.[facility] HospitalIn the event this information is protected by the Federal Confidentiality of Alcohol and Drug Abuse Patient Records regulations: The Federal rules restrict any use of the information to criminally investigate or prosecute any alcohol or drug abuse patient.[facility] HospitalIn the event this information is protected by the Federal Confidentiality of Alcohol and Drug Abuse Patient Records regulations: The Federal rules restrict any use of the information to criminally investigate or prosecute any alcohol or drug abuse patient.[facility] HospitalIn the event this information is protected by the Federal Confidentiality of Alcohol and Drug Abuse Patient Records regulations: The Federal rules restrict any use of the information to criminally investigate or prosecute any alcohol or drug abuse patient.[facility] HospitalIn the event this information is protected by the Federal Confidentiality of Alcohol and Drug Abuse Patient Records regulations: The Federal rules restrict any use of the information to criminally investigate or prosecute any alcohol or drug abuse patient.[facility] HospitalIn the event this information is protected by the Federal Confidentiality of Alcohol and Drug Abuse Patient Records regulations: The Federal rules restrict any use of the information to criminally investigate or prosecute any alcohol or drug abuse patient.[facility] HospitalIn the event this information is protected by the Federal Confidentiality of Alcohol and Drug Abuse Patient Records regulations: The Federal rules restrict any use of the information to criminally investigate or prosecute any alcohol or drug abuse patient.[facility] HospitalIn the event this information is protected by the Federal Confidentiality of Alcohol and Drug Abuse Patient Records regulations: The Federal rules restrict any use of the information to criminally investigate or prosecute any alcohol or drug abuse patient.[facility] HospitalIn the event this information is protected by the Federal Confidentiality of Alcohol and Drug Abuse Patient Records regulations: The Federal rules restrict any use of the information to criminally investigate or prosecute any alcohol or drug abuse patient.[facility] HospitalIn the event this information is protected by the Federal Confidentiality of Alcohol and Drug Abuse Patient Records regulations: The Federal rules restrict any use of the information to criminally investigate or prosecute any alcohol or drug abuse patient.[facility] HospitalIn the event this information is protected by the Federal Confidentiality of Alcohol and Drug Abuse Patient Records regulations: The Federal rules restrict any use of the information to criminally investigate or prosecute any alcohol or drug abuse patient.[facility] HospitalIn the event this information is protected by the Federal Confidentiality of Alcohol and Drug Abuse Patient Records regulations: The Federal rules restrict any use of the information to criminally investigate or prosecute any alcohol or drug abuse patient.[facility] HospitalIn the event this information is protected by the Federal Confidentiality of Alcohol and Drug Abuse Patient Records regulations: The Federal rules restrict any use of the information to criminally investigate or prosecute any alcohol or drug abuse patient.[facility] HospitalIn the event this information is protected by the Federal Confidentiality of Alcohol and Drug Abuse Patient Records regulations: The Federal rules restrict any use of the information to criminally investigate or prosecute any alcohol or drug abuse patient.[facility] HospitalIn the event this information is protected by the Federal Confidentiality of Alcohol and Drug Abuse Patient Records regulations: The Federal rules restrict any use of the information to criminally investigate or prosecute any alcohol or drug abuse patient.[facility] HospitalIn the event this information is protected by the Federal Confidentiality of Alcohol and Drug Abuse Patient Records regulations: The Federal rules restrict any use of the information to criminally investigate or prosecute any alcohol or drug abuse patient.[facility] HospitalIn the event this information is protected by the Federal Confidentiality of Alcohol and Drug Abuse Patient Records regulations: The Federal rules restrict any use of the information to criminally investigate or prosecute any alcohol or drug abuse patient.[facility] HospitalIn the event this information is protected by the Federal Confidentiality of Alcohol and Drug Abuse Patient Records regulations: The Federal rules restrict any use of the information to criminally investigate or prosecute any alcohol or drug abuse patient.[facility] HospitalIn the event this information is protected by the Federal Confidentiality of Alcohol and Drug Abuse Patient Records regulations: The Federal rules restrict any use of the information to criminally investigate or prosecute any alcohol or drug abuse patient.[facility] HospitalIn the event this information is protected by the Federal Confidentiality of Alcohol and Drug Abuse Patient Records regulations: The Federal rules restrict any use of the information to criminally investigate or prosecute any alcohol or drug abuse patient.[facility] HospitalIn the event this information is protected by the Federal Confidentiality of Alcohol and Drug Abuse Patient Records regulations: The Federal rules restrict any use of the information to criminally investigate or prosecute any alcohol or drug abuse patient.[facility] HospitalIn the event this information is protected by the Federal Confidentiality of Alcohol and Drug Abuse Patient Records regulations: The Federal rules restrict any use of the information to criminally investigate or prosecute any alcohol or drug abuse patient.[facility] HospitalIn the event this information is protected by the Federal Confidentiality of Alcohol and Drug Abuse Patient Records regulations: The Federal rules restrict any use of the information to criminally investigate or prosecute any alcohol or drug abuse patient.[facility] HospitalIn the event this information is protected by the Federal Confidentiality of Alcohol and Drug Abuse Patient Records regulations: The Federal rules restrict any use of the information to criminally investigate or prosecute any alcohol or drug abuse patient.[facility] HospitalIn the event this information is protected by the Federal Confidentiality of Alcohol and Drug Abuse Patient Records regulations: The Federal rules restrict any use of the information to criminally investigate or prosecute any alcohol or drug abuse patient.[facility] HospitalIn the event this information is protected by the Federal Confidentiality of Alcohol and Drug Abuse Patient Records regulations: The Federal rules restrict any use of the information to criminally investigate or prosecute any alcohol or drug abuse patient.[facility] HospitalIn the event this information is protected by the Federal Confidentiality of Alcohol and Drug Abuse Patient Records regulations: The Federal rules restrict any use of the information to criminally investigate or prosecute any alcohol or drug abuse patient.[facility] HospitalIn the event this information is protected by the Federal Confidentiality of Alcohol and Drug Abuse Patient Records regulations: The Federal rules restrict any use of the information to criminally investigate or prosecute any alcohol or drug abuse patient.[facility] HospitalIn the event this information is protected by the Federal Confidentiality of Alcohol and Drug Abuse Patient Records regulations: The Federal rules restrict any use of the information to criminally investigate or prosecute any alcohol or drug abuse patient.[facility] Care Teams (unrecognized sec tion and content) Mandarin Chinese Teacher Relationship Specialty Start Date End Date Fernando Turcios [address] [place] [id number] PCP - General Pediatrics 04/02/20 Mandarin Chinese Teacher Relationship Specialty Start Date End Date Fernando Turcios [address] [place] [address] PCP - General Pediatrics 04/02/20 Mandarin Chinese Teacher Relationship Specialty Start Date End Date Fernando Turcios [address] [place] [address] PCP - General Pediatrics 04/02/20 Mandarin Chinese Teacher Relationship Specialty Start Date End Date Fernando Turcios [address] [place] [address] PCP - General Pediatrics 04/02/20 Mandarin Chinese Teacher Relationship Specialty Start Date End Date Fernando Turcios [address] [place] [address] (Fax) PCP - General Pediatrics 04/02/20 Mandarin Chinese Teacher Relationship Specialty Start Date End Date Fernando Turcios [address] [place] [address] (Fax) PCP - General Pediatrics 04/02/20 Mandarin Chinese Teacher Relationship Specialty Start Date End Date Fernando Turcios [address] [facility] [place] [address] (Fax) PCP - General Pediatrics 04/02/20 Mandarin Chinese Teacher Relationship Specialty Start Date End Date Fernando Turcios [address] [place] [address] (Fax) PCP - General Pediatrics 04/02/20 Mandarin Chinese Teacher Relationship Specialty Start Date End Date Fernando Turcios [address] [facility] [place] [address] (Fax) PCP - General Pediatrics 04/02/20 Mandarin Chinese Teacher Relationship Specialty Start Date End Date Fernando Turcios [address] [facility] [place] [address] (Fax) PCP - General Pediatrics 04/02/20 Mandarin Chinese Teacher Relationship Specialty Start Date End Date Shannan Villarreal MD [address] [place] [address] [address] [place], [place] [address] PCP - General Family Medicine 09/11/23 Mandarin Chinese Teacher Relationship Specialty Start Date End Date Shannan Villarreal MD [address] [facility] [address] [place], [place] [address] PCP - General Family Medicine 09/11/23 Mandarin Chinese Teacher Relationship Specialty Start Date End Date Shannan Villarreal MD [address] [facility] [place] [address] PCP - General Family Medicine 09/11/23 Mandarin Chinese Teacher Relationship Specialty Start Date End Date Shannan Villarreal MD [address] [facility] [place] [address] PCP - General Family Medicine 09/11/23 Mandarin Chinese Teacher Relationship Specialty Start Date End Date Shannan Villarreal MD [address] [facility] [place] [address] PCP - General Family Medicine 09/11/23 Mandarin Chinese Teacher Relationship Specialty Start Date End Date Shannan Villarreal MD [address] [facility] [place] [address] PCP - General Family Medicine 09/11/23 Mandarin Chinese Teacher Relationship Specialty Start Date End Date Shannan Villarreal MD [address] [facility] [place] [address] PCP - General Family Medicine 09/11/23 Mandarin Chinese Teacher Relationship Specialty Start Date End Date Shannan Villarreal MD [address] [facility] [address] [place], [place] [address] PCP - General Family Medicine 09/11/23 Mandarin Chinese Teacher Relationship Specialty Start Date End Date Shannan Villarreal MD [address] [facility] [place] [address] PCP - General Family Medicine 09/11/23 Mandarin Chinese Teacher Relationship Specialty Start Date End Date Shannan Villarreal MD [address] [facility] [place] [address] PCP - General Family Medicine 09/11/23 Mandarin Chinese Teacher Relationship Specialty Start Date End Date Shannan Villarreal MD [address] [facility] [place] [address] PCP - General Family Medicine 09/11/23 Mandarin Chinese Teacher Relationship Specialty Start Date End Date Shannan Villarreal MD [address] [facility] [place] [address] PCP - General Family Medicine 09/11/23 Mandarin Chinese Teacher Relationship Specialty Start Date End Date Shannan Villarreal MD [address] [facility] [place] [address] PCP - General Family Medicine 09/11/23 Mandarin Chinese Teacher Relationship Specialty Start Date End Date Shannan Villarreal MD [address] [facility] [place] [address] PCP - General Family Medicine 09/11/23 Mandarin Chinese Teacher Relationship Specialty Start Date End Date Shannan Villarreal MD [address] [facility] [place] [address] PCP - General Family Medicine 09/11/23 Mandarin Chinese Teacher Relationship Specialty Start Date End Date Shannan Villarreal MD [address] [facility] [place] [address] PCP - General Family Medicine 09/11/23 Mandarin Chinese Teacher Relationship Specialty Start Date End Date Shannan Villarreal MD [address] [facility] [address] [place], [place] [address] PCP - General Family Medicine 09/11/23 Mandarin Chinese Teacher Relationship Specialty Start Date End Date Shannan Villarreal MD [address] [facility] [place] [address] PCP - General Family Medicine 09/11/23 Mandarin Chinese Teacher Relationship Specialty Start Date End Date Shannan Villarreal MD [address] [facility] [place] [address] PCP - General Family Medicine 09/11/23 Mandarin Chinese Teacher Relationship Specialty Start Date End Date Shannan Villarreal MD [address] [facility] [place] [address] PCP - General Family Medicine 09/11/23 Mandarin Chinese Teacher Relationship Specialty Start Date End Date Shannan Villarreal MD [address] [facility] [address] [place], [place] [address] PCP - General Family Medicine 09/11/23 Mandarin Chinese Teacher Relationship Specialty Start Date End Date Shannan Villarreal MD [address] [facility] [place] [address] PCP - General Family Medicine 09/11/23 Mandarin Chinese Teacher Relationship Specialty Start Date End Date Shannan Villarreal MD [address] [facility] [address] [place], [place] [address] PCP - General Family Medicine 09/11/23 Chrystal Patiño APRN.BOOKING SUPERVISOR [address] [facility] [address] [place], [place] 332041 Registered Nurse Midwife Internal Medicine 08/14/24 Mandarin Chinese Teacher Relationship Specialty Start Date End Date Shannan Villarreal MD [address] [facility] [place] [address] PCP - General Family Medicine 09/11/23 Chrystal Patiño CLOTH COLORS EXAMINER.BOOKING SUPERVISOR [address] [facility] [place] [address] Registered Nurse Midwife Internal Medicine 08/14/24 Mandarin Chinese Teacher Relationship Specialty Start Date End Date Shannan Villarreal MD [address] [facility] [place] [address] PCP - General Family Medicine 09/11/23 Chrystal Patiño CLOTH COLORS EXAMINER.BOOKING SUPERVISOR [address] [facility] [place] [address] Registered Nurse Midwife Internal Medicine 08/14/24 Mandarin Chinese Teacher Relationship Specialty Start Date End Date Shannan Villarreal MD [address] [facility] [place] [address] PCP - General Family Medicine 09/11/23 Chrystal Patiño, CLOTH COLORS EXAMINER.BOOKING SUPERVISOR [address] [facility] [place] [address] Registered Nurse Midwife Internal Medicine 08/14/24 Mandarin Chinese Teacher Relationship Specialty Start Date End Date Shannan Villarreal MD [address] [facility] [place] [address] PCP - General Family Medicine 09/11/23 Chrystal Patiño APRN.BOOKING SUPERVISOR [address] [facility] [place] [address] Registered Nurse Midwife Internal Medicine 08/14/24 Mandarin Chinese Teacher Relationship Specialty Start Date End Date Shannan Villarreal MD [address] [facility] [place] [address] PCP - General Family Medicine 09/11/23 Chrystal Patiño APRN.BOOKING SUPERVISOR [address] [facility] [place] [address] Registered Nurse Midwife Internal Medicine 08/14/24 Mandarin Chinese Teacher Relationship Specialty Start Date End Date Shannan Villarreal MD [address] [facility] [place] [address] PCP - General Family Medicine 09/11/23 Chrystal Patiño APRN.BOOKING SUPERVISOR [address] [facility] [place] [address] Registered Nurse Midwife Internal Medicine 08/14/24 Mandarin Chinese Teacher Relationship Specialty Start Date End Date Shannan Villarreal MD [address] [facility] [place] [address] PCP - General Family Medicine 09/11/23 Chrystal Patiño APRN.BOOKING SUPERVISOR [address] [facility] [place] [address] Registered Nurse Midwife Internal Medicine 08/14/24 Mandarin Chinese Teacher Relationship Specialty Start Date End Date Shannan Villarreal MD [address] [facility] [place] [address] PCP - General Family Medicine 09/11/23 Chrystal Patiño APRN.BOOKING SUPERVISOR [address] [facility] [place] [address] Registered Nurse Midwife Internal Medicine 08/14/24 Mandarin Chinese Teacher Relationship Specialty Start Date End Date Shannan Villarreal MD [address] [facility] [place] [address] PCP - General Family Medicine 09/11/23 Chrystal Patiño APRN.BOOKING SUPERVISOR [address] [facility] [place] [address] Registered Nurse Midwife Internal Medicine 08/14/24 Mandarin Chinese Teacher Relationship Specialty Start Date End Date Shannan Villarreal MD [address] [facility] [place] [address] PCP - General Family Medicine 09/11/23 Chrystal Patiño APRN.BOOKING SUPERVISOR [address] [facility] [place] [address] Registered Nurse Midwife Internal Medicine 08/14/24 Mandarin Chinese Teacher Relationship Specialty Start Date End Date Shannan Villarreal MD [address] [facility] [place] [address] PCP - General Family Medicine 09/11/23 Chrystal Patiño, CLOTH COLORS EXAMINER.BOOKING SUPERVISOR [address] [facility] [address] [place], [place] [address] Registered Nurse Midwife Internal Medicine 08/14/24 Mandarin Chinese Teacher Relationship Specialty Start Date End Date Shannan Villarreal MD [address] [facility] [place] [address] PCP - General Family Medicine 09/11/23 Chrystal Patiño, CLOTH COLORS EXAMINER.BOOKING SUPERVISOR [address] [facility] [address] [place], [place] 95[address] Registered Nurse Midwife Internal Medicine 08/14/24 Team Status: Active Member Role Status Dates Dr. Ezekiel Villarreal MD Primary Care Provider Active Team Status: Inactive Member Role Status Dates Dr. Ezekiel Villarreal MD Primary Care Provider Active Start: December 05, 2024 End: December 05, 2024 Dr. Jenaro Vigil MD Emergency Provider Active Start: December 05, 2024 End: December 05, 2024 Mandarin Chinese Teacher Relationship Specialty Start Date End Date Shannan Villarreal MD [address] [facility] [place] [address] PCP - General Family Medicine 09/11/23 Chrystal Patiño APRN.BOOKING SUPERVISOR [address] [facility] [place] [address] Registered Nurse Midwife Internal Medicine 08/14/24 Mandarin Chinese Teacher Relationship Specialty Start Date End Date Shannan Villarreal MD [address] [facility] [place] [address] PCP - General Family Medicine 09/11/23 Chrystal Patiño, CLOTH COLORS EXAMINER.BOOKING SUPERVISOR [address] [facility] [place] [address] Registered Nurse Midwife Internal Medicine 08/14/24 Mandarin Chinese Teacher Relationship Specialty Start Date End Date Shannan Villarreal MD [address] [facility] [place] [address] PCP - General Family Medicine 09/11/23 Chrystal Patiño, CLOTH COLORS EXAMINER.BOOKING SUPERVISOR [address] [facility] [place] [address] Registered Nurse Midwife Internal Medicine 08/14/24 Mandarin Chinese Teacher Relationship Specialty Start Date End Date Shannan Villarreal MD [address] [facility] [place] [address] PCP - General Family Medicine 09/11/23 Chrystal Patiño APRN.BOOKING SUPERVISOR [address] [facility] [place] [address] Registered Nurse Midwife Internal Medicine 08/14/24 Mandarin Chinese Teacher Relationship Specialty Start Date End Date Shannan Villarreal MD [address] [facility] [place] [address] PCP - General Family Medicine 09/11/23 Chrystal Patiño APRN.BOOKING SUPERVISOR [address] [facility] [place] [address] Registered Nurse Midwife Internal Medicine 08/14/24 Mandarin Chinese Teacher Relationship Specialty Start Date End Date Shannan Villarreal MD [address] [facility] [place] [address] PCP - General Family Medicine 09/11/23 Chrystal Patiño APRN.BOOKING SUPERVISOR [address] [facility] [place] [address] Registered Nurse Midwife Internal Medicine 08/14/24 Mandarin Chinese Teacher Relationship Specialty Start Date End Date Shannan Villarreal MD [address] [facility] [place] [address] PCP - General Family Medicine 09/11/23 Chrystal Patiño CLOTH COLORS EXAMINER.BOOKING SUPERVISOR [address] [facility] [place] [address] Registered Nurse Midwife Internal Medicine 08/14/24 Mandarin Chinese Teacher Relationship Specialty Start Date End Date Shannan Villarreal MD [address] [facility] [address] [place], [place] [address] PCP - General Family Medicine 09/11/23 Chrystal Patiño CLOTH COLORS EXAMINER.BOOKING SUPERVISOR [address] [facility] [place] [address] Registered Nurse Midwife Internal Medicine 08/14/24 Mandarin Chinese Teacher Relationship Specialty Start Date End Date Shannan Villarreal MD [address] [facility] [address] [place], [place] [id number] PCP - General Family Medicine 09/11/23 Chrystal Patiño APRN.BOOKING SUPERVISOR [address] [facility] [address] [place], [place] [address] Registered Nurse Midwife Internal Medicine 08/14/24 Mandarin Chinese Teacher Relationship Specialty Start Date End Date Shannan Villarreal MD [address] [facility] [address] [place], [place] [address] PCP - General Family Medicine 09/11/23 Chrystal Patiño, ALIYA.BOOKING SUPERVISOR [address] [facility] [address] [place], [place] [address] Registered Nurse Midwife Internal Medicine 08/14/24 Mandarin Chinese Teacher Relationship Specialty Start Date End Date Shannan Villarreal MD [address] [facility] [address] [place], [place] [address] PCP - General Family Medicine 09/11/23 Chrystal Patiño, CLOTH COLORS EXAMINER.BOOKING SUPERVISOR [address] [facility] [address] [place], [place] [id number] Registered Nurse Midwife Internal Medicine 08/14/24 FOR RECORDS PERTAINING TO PATIENTS WHO ARE OR HAVE BEEN ENROLLED IN A CHEMICAL DEPENDENCY/SUBSTANCEABUSE PROGRAM, SOME INFORMATION MAY BE OMITTED. This clinical summary was aggregated from multiple sources. Caution should be exercised in using it in the provision of clinical care. This summary normalizes information from multiple sources, and as a consequence, information in this document may materially change the coding, format and clinical context of patient data. In addition, data may be omitted in some cases. CLINICAL DECISIONS SHOULD BE BASED ON THE PRIMARY CLINICAL RECORDS. [employer] [facility]. provides no warranty or guarantee of the accuracy or completeness of information in this document.
[2025-03-29 06:59] LABS: Hematocrit 31.1 % (37-47); Hemoglobin 9.9 g/dL (12.0-15.0); Mean Corp Hgb Conc 31.8 g/dL (32-36); Mean Corpuscular Volume 78.3 fL (81-99); Mean Platelet Vol. 10.8 fl (6.2-12.0); Platelet Count 177 K/mm3 (150-450); RBC Distribution Width CV 18.0 % (11.6-14.6); RBC Distribution Width SD 51.5 fl (35.1-43.9); Red Blood Count 3.97 M/mm3 (4.2-5.4); White Blood Count 8.9 K/mm3 (4.4-11.0)
[2025-03-29 07:30] LABS: AST(SGOT) 28 U/L (<=31); Alanine Aminotransfer ALT/SGPT 18 U/L (<=34); Estimated Creatinine Clearance 180.57 ml/min (50-250); Uric Acid 4.5 mg/dL (2.6-6.0)
[2025-03-29 07:39] LABS: Syphilis Antibodies Nonreactive (Nonreactive)
--- NOTE | 2025-03-29 08:21 | OB.TRI.NOTE ---
HPI - General General Date of Service: 03/29/25 HPI Narrative LINDA MCLEOD, is a 19 F @ 37 weeks who presents c/o decreased FM and contractions. denies ANTHONY, visual changes or Epigastric pain. No vaginal bleeding or LOF. pt reports more swelling in LE. PFSH PFSH Medical History Anxiety Home Medications ?Medication ?Instructions ?Recorded ?Last Taken ?Type aspirin 81 mg capsule 81 mg PO DAILY 12/05/24 03/28/25 History famotidine 40 mg tablet 40 mg PO DAILY 12/05/24 03/28/25 History metoclopramide HCl 10 mg tablet 10 mg PO TID PRN PRN nausea and 12/05/24 Unknown History vomiting Allergy/AdvReac Type Severity Reaction Status Date / Time ciprofloxacin Allergy Unknown Anaphylaxis Verified 03/29/25 05:54 clindamycin Allergy Unknown Anaphylaxis Verified 03/29/25 05:54 chlorhexidine Allergy Rash Verified 03/29/25 05:54 Penicillins AdvReac Unknown Anaphylaxis Verified 03/29/25 05:54 acetaminophen (From Tylenol) AdvReac Abd Verified 03/29/25 05:54 cramps/diarrhea azithromycin (From Zithromax) AdvReac Diarrhea Verified 03/29/25 05:54 hydroxyzine (From Atarax) AdvReac Paradoxical Verified 03/29/25 05:54 Effect ibuprofen AdvReac Abd Verified 03/29/25 05:54 cramps/diarrhea lactose AdvReac Diarrhea Verified 03/29/25 05:54 red dye AdvReac Diarrhea Verified 03/29/25 05:54 tramadol AdvReac Blurred Verified 03/29/25 05:54 Vision Surgical History H/O colonoscopy H/O endoscopy Social History Smoking Status: Never smoker substance use type: does not use Physical Exam Narrative Abd: gravid, non tender to Palpation in RUQ or Epigatric Ext: +2 pitting edema VE: 1.5/60-70/-2 Const alert and oriented x3 General Appearance: cooperative HEENT normocephalic GI GI Narrative: Gravid, non tender to palpation. OB / External & Speculum: external exam normal Extremity normal to inspection Skin no rashes or lesions noted Neuro oriented x3 and CN's II-XII intact bilaterally Psych Appearance: grossly normal NST FHR Rate Baby A Baseline: 140 Variability:: Moderate Accelerations:: 15 x 15 Decelerations:: None FHR Category:: Category I Uterine Activity:: Q2-4 min Assessment & Plan (1) Swelling of lower extremity during : (2) 37 weeks gestation of : PLAN: Plan 19yo @ 37 weeks - c/o contractions- elevated BPs at time of evaluation 1) PRE E labs pending 2) continue to monitor VS- will consider keeping for IOL if BPs remain elevated or abnormal blood work- reviewed Dx of GHTN 2 elevated BPs >4hrs apart. 3) Pt has follow up in office tomorrow if DC home.
[2025-03-29 08:56] LABS: Creatinine, Urine (random) 83.30 mg/dL (28.00-217.00); Protein, Urine (Random) 66.5 mg/dL (0.0-12.0); Protein:Creat Ratio 798 mg/g CRE (0-200)
--- NOTE | 2025-03-29 09:23 | HP.PCM.OB_ITS ---
HPI - General General Date of Admission: 03/29/25 HPI Narrative LINDA MCLEOD, is a 19 F @ 37.5 weeks who presents c/o decrased FM and CTX. upon evaluation her Urine prot/creat ratio was elevated along with mild range BPs. plan for admission and IOL for PRE Eclampsia w/o severe features. [facility] Medical History Anxiety Home Medications ?Medication ?Instructions ?Recorded ?Last Taken ?Type aspirin 81 mg capsule 81 mg PO DAILY 12/05/2403/08 History famotidine 40 mg tablet 40 mg PO DAILY 12/05/2403/08 History metoclopramide HCl 10 mg tablet 10 mg PO TID PRN PRN n ausea and 12/05/24 Unknown History vomiting Allergy/AdvReac Type Severity Reaction Status Date / Time ciprofloxacin Allergy Unknown Anaphylaxis Verified 03/29/25 05:54 clindamycin Allergy Unknown Anaphylaxis Verified 03/29/25 05:54 chlorhexidine Allergy Rash Verified 03/29/25 05:54 Penicillins AdvReac Unknown Anaphylaxis Verified 03/29/25 05:54 acetaminophen (From Tylenol) AdvReac Abd Verified 03/29/25 05:54 cramps/diarrhea azithromycin (From Zithromax) AdvReac Diarrhea Verified 03/29/25 05:54 hydroxyzine (From Atarax) AdvReac Paradoxical Verified 03/29/25 05:54 Effect ibuprofen AdvReac Abd Verified 03/29/25 05:54 cramps/diarrhea lactose AdvReac Diarrhea Verified 03/29/25 05:54 red dye AdvReac Diarrhea Verified 03/29/25 05:54 tramadol AdvReac Blurred Verified 03/29/25 05:54 Vision Surgical History H/O colonoscopy H/O endoscopy Social History Smoking Status: Never smoker substance use type: does not use Vital Signs Vital Signs Vital Signs: 03/29/25 06:02 03/29/25 06:02 03/29/25 06:02 Temperature 97.9 F Temperature Source Temporal Pulse Rate Respiratory Rate 14 Blood Pressure BP Systolic BP Diastolic Pulse Ox 07/23/25 06:06 03/29/25 06:06 03/29/25 06:06 Temperature Temperature Source Pulse Rate 65 Respiratory Rate Blood Pressure 136/96 H BP Systolic 136 BP Diastolic 96 Pulse Ox 99 03/29/25 06:13 03/29/25 06:13 03/29/25 06:29 Temperature Temperature Source Pulse Rate 72 Respiratory Rate Blood Pressure 141/99 H 132/72 H BP Systolic 141 132 BP Diastolic 99 72 Pulse Ox 03/29/25 06:29 03/29/25 06:46 03/29/25 06:46 Temperature Temperature Source Pulse Rate 71 75 Respiratory Rate Blood Pressure 194/86 H BP Systolic 194 BP Diastolic 86 Pulse Ox 03/29/25 07:00 03/29/25 07:00 03/29/25 07:14 Temperature Temperature Source Pulse Rate 73 Respiratory Rate Blood Pressure 141/90 H 143/91 H BP Systolic 141 143 BP Diastolic 90 91 Pulse Ox 03/29/25 07:14 03/29/25 07:29 03/29/25 07:29 Temperature Temperature Source Pulse Rate 68 77 Respiratory Rate Blood Pressure 148/89 H BP Systolic 148 BP Diastolic 89 Pulse Ox 03/29/25 07:45 03/29/25 07:45 03/29/25 07:45 Temperature Temperature Source Tympanic Pulse Rate 75 Respiratory Rate Blood Pressure 132/75 H BP Systolic 132 BP Diastolic 75 Pulse Ox 03/29/25 07:45 03/29/25 07:45 03/29/25 07:59 Temperature 97.9 F Temperature Source Pulse Rate Respiratory Rate 18 Blood Pressure 133/73 H BP Systolic 133 BP Diastolic 73 Pulse Ox 03/29/25 07:59 03/29/25 08:22 03/29/25 08:22 Temperature Temperature Source Pulse Rate 77 74 Respiratory Rate Blood Pressure 157/91 H BP Systolic 157 BP Diastolic 91 Pulse Ox 03/29/25 08:24 03/29/25 08:24 03/29/25 08:38 Temperature Temperature Source Pulse Rate 74 Respiratory Rate Blood Pressure 152/96 H 148/87 H BP Systolic 152 148 BP Diastolic 96 87 Pulse Ox 03/29/25 08:38 03/29/25 09:00 03/29/25 09:00 Temperature Temperature Source Pulse Rate 78 87 Respiratory Rate Blood Pressure 136/93 H BP Systolic 136 BP Diastolic 93 Pulse Ox 03/29/25 09:15 03/29/25 09:15 Temperature Temperature Source Pulse Rate 78 Respiratory Rate Blood Pressure 129/62 H BP Systolic 129 BP Diastolic 62 Pulse Ox Weight Weight: 97.9 kg Body Mass Index (BMI) 37.0 Physical Exam Narrative abd; gravid, non tender. No RUQ or Epigastric pain. EFW 8.5-9lbs VE: 1.5/60-70/-2 LE: +2 edema Const alert and oriented x3 General Appearance: cooperative HEENT normocephalic GI GI Narrative: Gravid, non tender to palpation. OB / External & Speculum: external exam normal Extremity normal to inspection Skin no rashes or lesions noted Neuro oriented x3 and CN's II-XII intact bilaterally Psych Appearance: grossly normal Labs Labs Labs: Blood Type A POSITIVE Antibody Screen NEGATIVE Hct 31.1 % (37-47) L Hgb 9.9 g/dL (12.0-15.0) L Syphilis Total Ab Nonreactive (Nonreactive) Assessment & Plan (1) Preeclampsia: (2) 37 weeks gestation of : (3) Swelling of lower extremity during : PLAN: Plan Admit to L&D Montior FHR/TOCO Epidural if requested for pain Monitor VS Anticipate will recheck and if not making cervical change will plan for valderrama/pitocin
--- NOTE | 2025-03-29 13:23 | PCM.PN.BLA ---
Progress Note pt seen at bedside- reviewed IOL plan. transcervical valderrama placed w/o difficulty. Pitocin to be started. FHR cat 1 reactive. Irregular contractions.
[2025-03-29] MEDS: 0.9% Normal Saline Single 100 ML IV.SOLN. INTRA-UTER (13:27)
[2025-03-29] MEDS: Lactated Ringers 1,000 ML 50 ML IV (13:27)
[2025-03-29] MEDS: Oxytocin 15 Units/NS 250ml 15 UNITS/250 ML IV.SOLN 2 UNITS IV (14:35)
--- NOTE | 2025-03-29 18:00 | PCM.PN.BLA ---
Progress Note patient seen at bedside- VE performed- /-3 AROM performed- Copious amount of clear fluid. IFM and IUPC placed.
[2025-03-29] MEDS: 0.9% Saline Lock 10 ML Syringe IV (19:02)
[2025-03-29] MEDS: Lactated Ringers 1,000 ML 999 ML IV (22:55)
[2025-03-29] MEDS: fentaNYL-bupivacaine (epidural) 100 ML BAG EPIDURAL (23:27)
[2025-03-30] VITALS (60 sets, daily range): BP systolic 121–150; BP diastolic 63–101; PULSE 93–150; RESP 16–20; TEMP 36.6–37.8; O2SAT 96–100
--- NOTE | 2025-03-30 02:11 | PCM.PN.BLA ---
Progress Note pt seen at bedside, resting comfortably with epidural in place. FHR cat 1 reactive. continue pitocin
[2025-03-30] MEDS: fentaNYL-bupivacaine (epidural) 100 ML BAG EPIDURAL ×3 (03:11→12:26)
[2025-03-30] MEDS: Lactated Ringers 1,000 ML 200 ML IV (04:00)
[2025-03-30] MEDS: Lactated Ringers 1,000 ML 250 ML IV ×2 (11:23→15:17)
[2025-03-30] MEDS: Oxytocin 15 Units/NS 250ml 15 UNITS/250 ML IV.SOLN 334 UNITS IV (16:50)
[2025-03-30] MEDS: Lidocaine 1% (20 ml mdv) 20 ML Vial INFILT (16:59)
[2025-03-30] MEDS: Oxytocin 15 Units/NS 250ml 15 UNITS/250 ML IV.SOLN 83 UNITS IV (18:00)
--- NOTE | 2025-03-30 18:29 | OB.VAGDELI_ITS ---
Assessment & Plan (1) Preeclampsia: QUALIFIERS: Trimester: third trimester Qualified Code(s): O14.93 - Unspecified pre-eclampsia, third trimester (2) (spontaneous vaginal delivery): (3) Shoulder dystocia, delivered, current hospitalization: Maternal Data Information Final FELIPE: 04/14/25 Gestational age: 37+6 Vaginal Delivery Maternal Presentation Maternal Presentation: Medically Indicated Induction Maternal Presentation: Decreased movement. Diagnosed with PRE E as a triage patient. EFW 8#2 oz 10 days ago Type of Induction: Pitocin, Montiel Bulb and Amniotomy Medical Reason for Induction: Preeclampsia, eclampsia Vaginal Delivery Information Procedure Performed: Spontaneous Vaginal Delivery and Shoulder Dystocia Maneuvers Delivery maneuver performed for shoulder dystocia: Gallo maneuver, Suprapubic pressure and Moore maneuver Head to body interval: 01:12 Surgeon/Practitioner: Jasmin Archer Date of Procedure: 03/30/25 Pre-Procedure Diagnosis: Pre E Post-Procedure Diagnosis: with shoulder dystocia Type of anesthesia: Epidural and Local with 1% Lidocaine Estimated Blood Loss: 250 cc Time of Delivery: 16:25 Findings Description of procedure: Presented to triage with decreased movement. BPs were mild and pr/cr was elevated. IOL for Pre E. Received Montiel bulb and pitocin. Progressed from 6 cm to complete and pushed for 4 hours. The vertex delivered over an intact peritoneum. Mom states that she blacked out with delivery of the head. The anterior shoulder was not forth coming. The hips were flexed for Gallo. Extra assistance was called to the room. The was a loose cord around the neck that was reduced. Suprapubic pressure was applied. Attempts were made to delivered the posterior shoulder and to rotated the shoulders forward and then backward. On the second attempt the shoulders rolled forward and the infant continued to deliver. The cord was clamped and cut and the infant transferred to the warmer. The placenta delivered with gentle traction. There was a 1st degree laceration that was repaired with 2-0 Vicryl. All sponge and instrument counts were correct. Presentation: Vertex and THERON Amniotic Membrane Rupture Type: Artificial Amniotic Fluid Description: Clear Placental Delivery Description: Spontaneous Placenta Disposition: [facility] Specimen collected: Yes Description of specimen(s) removed: cord gas Cord Vessel Description: 3 Vessels Cord Entanglement: Around neck x 1, loose Nuchal Cord Compression: Without compression Cord Gases: ABG and VBG Infant A Gender: Female (1 minute): 2 (5 minute): 8 Delayed Cord Clamping: No Ethnoarchaeologist chief general pediatric clinic: No Post Vaginal Deli Medications given after delivery: IV Pitocin Episiotomy Description: None Laceration: Midline and 1st degree Complication Complications: No
[2025-03-30] MEDS: Ketorolac 30 MG/ML Syringe IM (20:23)
[2025-03-31] VITALS (10 sets, daily range): BP systolic 124–153; BP diastolic 68–99; PULSE 73–110; RESP 16–18; TEMP 36.3–36.9; O2SAT 98–100
--- NOTE | 2025-03-31 04:17 | NURSING ---
This RN documented pitocin times in NOV due to previous RN not scanning and charting times. This RN verified correct times with previous shift RNDarren Sarah RN
--- NOTE | 2025-03-31 07:10 | PCM.PN.OB ---
Subjective Subjective Reviewed with nursing. Pt sleeping did not wake. Doing well. Ambulating and voiding without difficulty. Mild lochia. Breast feeding. BP stable Objective Data Objective Data Vital Signs: Vital Signs Temp Pulse Resp BP Pulse Ox O2 Del Method 98 F 110 H 16 124/75 H 98 Room Air 03/31/25 04:33 03/31/25 04:33 03/31/25 04:33 03/31/25 04:33 03/31/25 04:33 03/31/25 04:33 Oxygen Delivery Method Room Air Weight: 97.9 kg Body Mass Index (BMI) 37.0 Intake & Output: Intake and Output for Last 24 Hours 03/29/25 03/30/25 03/31/25 23:59 23:59 23:59 Intake Total 735.15 / 735.15 4572.60 / 4572.60 Output Total 1450 / 1450 Balance 735.15 / 735.15 3122.60 / 3122.60 Lab / Micro Data 03/29/25 06:40 03/29/25 06:40 ROS Constitutional Constitutional: Denies headache(s) Cardiovascular Cardiovascular: Denies chest pain or dyspnea Gastrointestinal Gastrointestinal: Denies nausea or vomiting Genitourinary Genitourinary: Denies dysuria Physical Exam Resp normal respiratory effort Assessment & Plan (1) Shoulder dystocia, delivered, current hospitalization: COMMENT: Pt instructed to have a with next (2) (spontaneous vaginal delivery): (3) Preeclampsia: QUALIFIERS: Trimester: third trimester Qualified Code(s): O14.93 - Unspecified pre-eclampsia, third trimester PLAN: Plan Monitor BP
--- NOTE | 2025-03-31 07:39 | NURSING ---
This RN removed epidural catheter post 2 hour recovery. Catheter tip intact. Terry Sarah RN
--- NOTE | 2025-03-31 10:00 | PCM.PROGNOTE ---
Subjective Subjective patient seen at bedside, doing well. Patient reports good pain control. lochia mild. Objective Data Objective Data Vital Signs: Vital Signs Temp Pulse Resp BP Pulse Ox O2 Del Method 98.0 F 101 H 18 127/83 H 99 Room Air 03/31/25 08:32 03/31/25 08:32 03/31/25 08:32 03/31/25 08:32 03/31/25 08:32 03/31/25 08:32 Oxygen Delivery Method Room Air Weight: 97.9 kg Body Mass Index (BMI) 37.0 Intake & Output: Intake and Output for Last 24 Hours 03/29/25 03/30/25 03/31/25 23:59 23:59 23:59 Intake Total 735.15 / 735.15 4572.60 / 4572.60 Output Total 1450 / 1450 Balance 735.15 / 735.15 3122.60 / 3122.60 Lab / Micro Data 03/29/25 06:40 03/29/25 06:40 Physical Exam Narrative Abd: fundus firm. Const alert and oriented x3 General Appearance: cooperative HEENT normocephalic Neck General: normal visual inspection GI soft to palpation and non-distended GI Narrative: Fundus firm Extremity normal to inspection and no calf tenderness Skin no rashes or lesions noted Neuro oriented x3 and CN's II-XII intact bilaterally Psych mental status grossly normal Assessment & Plan Assessment/Plan (1) Shoulder dystocia, delivered, current hospitalization: (2) (spontaneous vaginal delivery): (3) Preeclampsia: QUALIFIERS: Trimester: third trimester Qualified Code(s): O14.93 - Unspecified pre-eclampsia, third trimester PLAN: Plan PPD# 1 , Doing well- chronic anemia in Routine care pain mgmt ambulation ferrous sulfate
[2025-03-31] MEDS: Benzocaine/Lanolin/Aloe Vera 85 GM Spray 1 SPRAY TOPICAL ×2 (17:37→18:11)
[2025-03-31] MEDS: 0.9% Saline Lock 10 ML Syringe IV ×2 (17:38→18:35)
[2025-03-31] MEDS: SELF ADMINISTRATION OF MEDS 1 EACH NOTE (18:11)
[2025-03-31] MEDS: Ketorolac 30 MG/ML Syringe IV (18:33)
--- NOTE | 2025-03-31 19:37 | PCM.PN.CNM ---
Subjective Subjective Patient seen at bedside. Baby in SCN for blood sugars. Patient c/o increased pain to perineum and lower back. Difficulty with swallowing pills and requesting IV Toradol for pain. Increased anxiety. Elevated pressures at times but patient painful. No severe ranges. Objective Data Objective Data Vital Signs: Vital Signs Temp Pulse Resp BP Pulse Ox O2 Del Method 98.5 F 91 18 153/99 H 100 Room Air 03/31/25 16:30 03/31/25 18:15 03/31/25 17:45 03/31/25 18:15 03/31/25 16:30 03/31/25 16:30 Oxygen Delivery Method Room Air Weight: 215 lb 13.321 oz Body Mass Index (BMI) 37.0 Intake & Output: Intake and Output for Last 24 Hours 03/29/25 03/30/25 03/31/25 23:59 23:59 23:59 Intake Total 735.15 / 735.15 4572.60 / 4572.60 Output Total 1450 / 1450 Balance 735.15 / 735.15 3122.60 / 3122.60 Lab / Micro Data Attestation: I reviewed the patient's lab results. 03/29/25 06:40 03/29/25 06:40 ROS Eyes Eyes: Denies blurry vision, change in vision or spots in vision ENT HEENT: Denies dizziness or headache(s) Cardiovascular Cardiovascular: Denies abdominal pain, chest pain or dyspnea Respiratory/Chest Respiratory/Chest: Denies cough, dyspnea, shortness of breath at rest or shortness of breath with exertion Gastrointestinal Gastrointestinal: Denies abdominal pain, diarrhea or vomiting Genitourinary Genitourinary: Denies change in urinary stream, difficulty urinating or dysuria Musculoskeletal Musculoskeletal: Reports none Integumentary Integumentary: Denies rash Neurologic Neurologic: Denies dizziness, headache(s), memory loss or weakness Physical Exam Const alert and no apparent distress General Appearance: cooperative and comfortable Exam Limitations: no limitations HEENT normocephalic Eyes General Eye: normal appearance of both eyes Neck full ROM General: normal visual inspection Chest Chest: symmetrical chest wall rise Resp normal respiratory effort and normal air movement Effort and Inspection: symmetric chest movement Auscultation: clear to auscultation bilaterally Cardio regular rate and regular rhythm GI normal to inspection, nondistended, normoactive bowel sounds Back/Spine normal ROM Extremity full ROM and no calf tenderness General Extremity: normal exam except as noted Skin no rashes or lesions noted Neuro oriented x3 Speech: speech normal Psych mental status grossly normal Thought Process: normal thought process Assessment & Plan (1) Shoulder dystocia, delivered, current hospitalization: COMMENT: Pt instructed to have a with next (2) (spontaneous vaginal delivery): (3) Pain: (4) Anxiety: PLAN: Plan Took patient's BP in room- 135/91 Support provided- talked at length about anxiety - interested in trying Vistaril PO as needed Vistaril 25 mg PO PRN every 6 hours for anxiety Continue to monitor BP and notify of any severe range pressures Dr. Gibson updated
[2025-03-31] MEDS: hydrOXYzine PAM 25 MG Capsule PO (21:25)
[2025-04-01 03:15] VITALS: BP 134/88; PULSE 105; RESP 16; TEMP 36.7; O2SAT 99
[2025-04-01] MEDS: Senna/Docusate Sodium 1 Tablet PO (03:20)
[2025-04-01 08:15] VITALS: BP 133/92; PULSE 102; RESP 18; TEMP 37.3; O2SAT 98
--- NOTE | 2025-04-01 09:25 | PCM.PN.CNM ---
Subjective Subjective Patient seen at bedside. Took Vistaril last night and got some rest. Continues to pump and take supply to SCN. Denies headache, vision changes, SOB, or CP. Objective Data Objective Data Vital Signs: Vital Signs Temp Pulse Resp BP Pulse Ox O2 Del Method 99.2 F H 102 H 18 133/92 H 98 Room Air 04/01/25 08:15 04/01/25 08:15 04/01/25 08:15 04/01/25 08:15 04/01/25 08:15 04/01/25 08:15 Oxygen Delivery Method Room Air Weight: 215 lb 13.321 oz Body Mass Index (BMI) 37.0 Intake & Output: Intake and Output for Last 24 Hours 03/30/25 03/31/25 04/01/25 23:59 23:59 23:59 Intake Total 4572.60 / 4572.60 Output Total 1450 / 1450 Balance 3122.60 / 3122.60 Lab / Micro Data Attestation: I reviewed the patient's lab results. 03/29/25 06:40 03/29/25 06:40 ROS Eyes Eyes: Denies blurry vision, change in vision or spots in vision ENT HEENT: Denies dizziness or headache(s) Cardiovascular Cardiovascular: Denies abdominal pain, chest pain or dyspnea Respiratory/Chest Respiratory/Chest: Denies cough, dyspnea, shortness of breath at rest or shortness of breath with exertion Gastrointestinal Gastrointestinal: Denies abdominal pain, diarrhea or vomiting Genitourinary Genitourinary: Denies change in urinary stream, difficulty urinating or dysuria Musculoskeletal Musculoskeletal: Reports none Integumentary Integumentary: Denies rash Neurologic Neurologic: Denies dizziness, headache(s), memory loss or weakness Physical Exam Const alert and no apparent distress General Appearance: cooperative and comfortable Exam Limitations: no limitations HEENT normocephalic Eyes General Eye: normal appearance of both eyes Neck full ROM General: normal visual inspection Chest Chest: symmetrical chest wall rise Resp normal respiratory effort and normal air movement Effort and Inspection: symmetric chest movement Auscultation: clear to auscultation bilaterally Cardio regular rate and regular rhythm GI normal to inspection, nondistended, normoactive bowel sounds Back/Spine normal ROM Extremity full ROM and no calf tenderness General Extremity: normal exam except as noted Skin no rashes or lesions noted Neuro oriented x3 Speech: speech normal Psych mental status grossly normal Thought Process: normal thought process Assessment & Plan (1) Anxiety: (2) Pain: (3) Shoulder dystocia, delivered, current hospitalization: COMMENT: Pt instructed to have a with next (4) (spontaneous vaginal delivery): (5) Preeclampsia: QUALIFIERS: Trimester: third trimester Qualified Code(s): O14.93 - Unspecified pre-eclampsia, third trimester PLAN: Plan Start Procardia 30 mg XR PO daily Blood pressures consistently ranging 130-140/90's Vistaril 25 mg PO q 6 PRN for anxiety Baby remains in SCN- anticipate hotel status tonight
[2025-04-01] MEDS: 0.9% Saline Lock 10 ML Syringe IV (10:49)
[2025-04-01] MEDS: NIFEdipine 30 MG Tablet PO (10:49)
--- NOTE | 2025-04-01 12:43 | PCM.DC.SUM ---
Providers Date of Admission: 03/29/25 Primary Care Physician: Dr. Ezekiel Herman MD Reason For Visit: VAGINAL DELIVERY Diagnosis Discharge Diagnosis (1) Anxiety: Status: Acute Code(s): F41.9 - Anxiety disorder, unspecified (2) Pain: Status: Acute Code(s): R52 - Pain, unspecified (3) Shoulder dystocia, delivered, current hospitalization: Status: Acute Code(s): O66.0 - Obstructed labor due to shoulder dystocia (4) (spontaneous vaginal delivery): Status: Acute Code(s): O80 - Encounter for full-term uncomplicated delivery (5) Preeclampsia: Status: Acute Code(s): O14.90 - Unspecified pre-eclampsia, unspecified trimester Qualifiers: Trimester: third trimester Qualified Code(s): O14.93 - Unspecified pre-eclampsia, third trimester Plan Procardia 30 mg XR PO daily Blood pressures consistently ranging 130-140/90's Vistaril 25 mg PO q 6 PRN for anxiety Baby remains in [facility] hot status tonight D/C with follow up this week in office for BP check Preeclampsia preautions reviewed and when to call office Medications at Discharge Home Medications metoclopramide HCl 10 mg tablet 10 mg PO TID PRN PRN nausea and vomiting 12/05/24 omeprazole 20 mg capsule,delayed release 20 mg PO DAILY heartburn/reflux 03/29/25 hydroxyzine pamoate 25 mg capsule 25 mg PO TID PRN PRN Anxiety #30 caps 04/01/25 nifedipine 30 mg tablet,extended release 24 hr 30 mg PO DAILY #30 tabs 04/01/25 sennosides 8.6 mg-docusate sodium 50 mg tablet (Stimulant Laxative Plus) 1 - 2 tab PO DAILY PRN PRN Constipation #0 tabs 04/01/25 Hospital Course Operations None Procedures None Summary of Care Provided Minutes Spent on Discharge: 15 Hospital Course: Patient had vaginal delivery. Hospital course was uneventful. Physical Exam Narrative Patient seen at bedside. Denies pain. Ambulating and voiding without difficulty. Lochia decreased. Denies headache, vision changes, SOB , or CP. Swelling decreased. Reports anxiety decreased since taking medications. Started on BP medications. Const alert and oriented x3 General Appearance: Negative for in distress HEENT normocephalic Eyes General Eye: normal appearance of both eyes Neck General: normal visual inspection Chest Chest: symmetrical chest wall rise Resp normal respiratory effort and normal air movement Effort and Inspection: symmetric chest movement; Negative for tachypneic Auscultation: clear to auscultation bilaterally Cardio regular rate and regular rhythm Peripheral Pulses: pulses 2+ throughout GI normal to inspection, nondistended, normoactive bowel sounds Narrative: Ice to perineum OB / External & Speculum: vaginal bleeding and other Lochia decreasing Uterus Palpation: uterus fundus firm (Below U) Extremity normal to inspection, full ROM and normal capillary refill Skin no rashes or lesions noted Neuro oriented x3, CN's II-XII intact bilaterally and gait normal Psych mental status grossly normal, thought process normal and activity/motor behavior normal Weight / BMI Weight Weight: 215 lb 13.321 oz Body Mass Index (BMI) 37.0 ABG / Lab / Microbiology Data 03/29/25 06:40 03/29/25 06:40 D/C Instructions Discharge Activity: Return to Normal Activity, No Restrictions, May Drive, May Shower and May Take a Tub Bath (Warm water only. No bath salts, soaps, bubbles) May resume sexual activity in: 6-8 weeks Weight Bearing Status: Weight bearing as tolerated Call your doctor if you observe: Fever of 101 or Higher, Inability to urinate, Using more than 1 pad per hour, Shortness of breath, Dizziness, Chest pain, Calf discomfort and Uncontrolled pain DC O2, CPAP, BIPAP Needs Home O2 Discharge instructions: No Please Follow Up With: [facility] Anais VALENZUELA When: This week in office for BP check Meaningful Use Info Meaningful Use Meaningful Use Diagnoses (Choose all that apply): None applicable Discharge Plan Admission Admit Date/Time: 03/29/25 09:24 Primary Reason for Your Visit: Labor and Delivery Attending Provider: Jasmin Archer Primary Care Provider: Ezekiel Herman Consulting Providers: Kristan Russ Discharge Orders/Prescriptions Prescriptions: New nifedipine 30 mg Tablet Extended Release 24hr 30 mg PO DAILY Qty: 30 0RF sennosides-docusate sodium [Stimulant Laxative Plus] 8.6-50 mg Tablet 1 - 2 tab PO DAILY PRN PRN (Reason: Constipation) Qty: 0 0RF hydroxyzine pamoate 25 mg Capsule 25 mg PO TID PRN PRN (Reason: Anxiety) Qty: 30 0RF Discontinued aspirin 81 mg capsule 81 mg PO DAILY No Action metoclopramide HCl 10 mg tablet 10 mg PO TID PRN PRN (Reason: nausea and vomiting) omeprazole 20 mg capsule,delayed release(DR/EC) 20 mg PO DAILY Referrals / Follow Up: Swati Salguero CNM [Med Staff - [facility] Practice Prof] - Ezekiel Herman MD [Primary Care Provider] - Disposition Disposition (needs filled in before D/C Order can be placed): Home, Self Care
[2025-04-01] MEDS: hydrOXYzine PAM 25 MG Capsule PO (14:15)
[2025-04-01 15:11] VITALS: BP 144/92; PULSE 117; RESP 16; O2SAT 100
--- NOTE | 2025-04-01 15:24 | NURSING ---
This RN called Saira Salguero for verbal okay to d/c patient. BP was 144/92, pt anxious about baby getting transported to main campus. Per Saira Salguero okay to d/c with follow up this week in office.
--- NOTE | 2025-04-04 08:49 | CASEMGMT ---
Social Work Assessment Labor and Delivery Unit Patient Address:[address] [place] [address] Phone number: [phone] Date of Referral: 03/31/25 Time of Referral:? [id number] Referred By: Dr. Archer Date of Intervention: ??03/31/25 Time of Intervention:? 1100, ongoing throughout day Reason for Referral:? anxiety Sw completed chart review and acknowledges social work consult due to maternal history of anxiety. Sw presented to [facility] where had been transferred in attempt to meet with mother of baby (MOB- Rhonda). Sw introduced self and explained sw role to MOB. At that time, MOB had visitors, and asked that sw meet with her at bedside in 40 minutes. Sw returned to MOB bedside in 40 minutes and MOB was still meeting with visitors. Sw presented to bedside in hour, and MOB was meeting with . stated that sw could still meet with MOB, but MOB asked that sw return in 30 minutes. Sw returned at bedside and MOB agreeable to meet with sw. Sw met with MOB and completed psychosocial assessment. History obtained from: medical records, MOB Household composition: REYES states that she and father of baby (FOB- Dilshad Cano) currently reside at address listed above, but still spend a lot of time at her parents house, and still receive mail there ([facility] [address] [place] [id number]). [place] baby to be included in residence when ready for discharge. REYES denies any problems or concerns with housing, stating that it is safe and secure. Patient's parent/guardian status:? ?REYES reports that she and FOB met when they were in high school and have now been together for 7 years. REYES reports that they got in 2020. REYES states that she did not change her name, and will have her last name hyphenated. REYES denies any domestic violence or intimate partner violence and reports that she is safe at home. Medical History: ?REYES is 19 year old female who is 1, para 0- now 1 following labor and delivery of . REYES received routine care during with [facility]. REYES presented to hospital due to decreased movements and contractions. REYES had an induction of labor due to pre-eclampsia and then delivered baby via vaginal delivery at 37 weeks gestation on 03/30/25. Baby girl, named Rebeka Castorena, was born weighing 9lb 6oz with apgars of 2 and 8 at one and five minutes of life, respectfully. REYES had a one and a half minute shoulder dystocia and then required transfer to [facility] due to hypoglycemia. REYES is providing breast milk for baby and states that baby will be followed by Dr. Herman for pediatrics. Educational Status:? REYES states that she and MINE both completed high school. No problems with reading, learning or comprehension. Financial Status: MINE is gainfully employed outside of the home, he works as a truck rental clerk. REYES is a stay at home mom is not working at this time. Infant Supplies:?? MOB reports that parents have obtained all necessary baby supplies, including: car seat, safe sleep space, clothes, diapers and wipes. Childcare/Caregiver(s):?REYES will be the primary caregiver, along with MINE when he is not working. Maternal grandparents also plan on helping with . Transportation:??Both parents have their drivers license and reliable means of transportation Programs/Agencies Involved: ??REYES is connected to Medicaid insurance? Children Services/Legal Issues:??No prior children services involvement, no issues or concerns warranting referral to be made at this time. ? Behavioral Health Issues: ??Mental Health History:??REYES states that MINE has history of depression. He is not prescribed anything to help him manage his symptoms. REYES states that she has anxiety and has a history of childhood trauma. REYES alluded to her trauma several times, but did not want to discuss what happened. REYES states that she is not prescribed any medication at this time to help her manage her anxiety. ? Substance Use History:?REYES denies substance use prior to and during . ? Family History:?MOB denies family history of substance use or significant mental health history. ? Drug Screens: ??No drug screens observed while completing chart review. Family/Social Stressors:? REYES states that it is hard for her that baby is admitted to [facility], as that is not the delivery outcome that she anticipated. Support Systems: REYES reports that MINE and her parents are her biggest supports. Depression/Shaken Baby/Safe Sleeping:? Sw educated REYES on signs and symptoms of baby blues and depression and anxiety. REYES states that she felt fine during her , but does feel anxious now that baby is here and admitted to the [facility]. MOB reports that she is familiar with the terms, but was appreciative of more information regarding specific signs to be on the lookout for. Sw explained to MOB that she is more at risk due to her mental health history. Sw explained importance of utilizing healthy and safe coping skills when she feels overwhelmed or frustrated. MOB states that she would play video games. Sw stated that playing video games is not the most appropriate when caring for a . Sw encouraged MOB to brainstorm other coping skills that would be more appropriate. MOB struggled to come up with other more appropriate coping skills that would be more appropriate than playing video games. Sw encouraged MOB to walk, spend time outside, in the sunshine, listen to music, journal, talk therapy, go to counseling, etc. MOB hesitated, but also stated that she may be able to do some of those things. Sw stated that video games may be appropriate for a brief/ short period of time when baby is sleeping, however MOB needs to be mindful of baby needs and ensure that she is a priority, MOB expressed understanding. Sw explained ABCs of safe sleep, and shaken baby prevention. ASSESSMENT:? MOB admitted following labor and delivery. Baby transferred to [facility] due to hypoglycemia. MOB expresses anxiety due to baby not being with her for care. MOB presents with limited coping skills and some immaturity. REYES does have supports in place with her parents who are planning on being routinely involved with baby care with MOB. MOB with mental health history positive for anxiety and childhood trauma. REYES is not prescribed any medications to help her manage her symptoms and is not connected to any community mental health resources. MOB states that at this time she is receptive to starting a medication to help her manage her symptoms, and was planning on talking to her OBGYN about this. REYES was observed to be laying in bed comfortably and was receptive to meeting with sw. REYES was talkative, but not willing to open up about trauma she experienced throughout childhood. REYES has obtained all necessary baby items and has natural supports in place. PLAN:? No other services requested or indicated. MOB and baby to be discharged when medically ready. Parents were provided literature regarding: signs and symptoms of baby blues and mood and anxiety disorders, Help Me Grow, shaken baby prevention, ABCs of safe sleep and a list of county resources that are available for them should any needs present themselves. Mateus Alejandro, TAPE DUPLICATOR, FIRST OFFICER AND FLIGHT INSTRUCTOR
== END 2025-04-01 16:00 | disposition home or self-care (01) | DRG 807 ==
LOC: WPOUT 09:40 → WP 09:40
PROVIDERS: Obstetrics & Gynecology; Admitting Provider Obstetrics & Gynecology; PCP Family Medicine; Referring Provider Obstetrics & Gynecology; Visit Provider Obstetrics & Gynecology
DX: O14.04 Mild to moderate pre-eclampsia, complicating childbirth (principal); Z37.0 Single live birth; O99.344 Other mental disorders complicating childbirth; F41.9 Anxiety disorder, unspecified; O36.8130 Decreased fetal movements, third trimester, not applicable or unspecified; O66.0 Obstructed labor due to shoulder dystocia; O69.81X0 Labor and delivery complicated by cord around neck, without compression, not applicable or unspecified; O99.02 Anemia complicating childbirth; O70.0 First degree perineal laceration during delivery; Z3A.37 37 weeks gestation of pregnancy
CPT/HCPCS: 59025; 59050; 82565; 82570; 84156; 84450; 84460; 84550; 85027; 86780; 86850; 86900; 86901; 99221; A4216; G0378